=== PATIENT | male | born 1950 | race Caucasian/White ===

== ENCOUNTER 2018-08-26 18:17 | Inpatient (IN) | payer MEDICARE, OTHER ==
[~2018-08-26] VITALS: Ht 182.9 cm; Wt 62.5 kg
[2018-08-26] MEDS ORDERED: PIPER-TAZO 3.375 GM IV (PMX) 100 ML IVPB STA (18:29)
[2018-08-26] MEDS ORDERED: VANCOMYCIN 1 GM (PMX) 250 ML IVPB STA (18:29)
[2018-08-26] MEDS ORDERED: SODIUM CHLORIDE 0.9% 1L BAG IV* STA (18:29)
[2018-08-26] MEDS ORDERED: BUDE6HFA INHALATION (19:00)
[2018-08-26] MEDS ORDERED: IPRA3AMP29 INHALATION (19:01)
[2018-08-26] MEDS ORDERED: QUET50TA PO (19:01)
[2018-08-26] MEDS ORDERED: DIVA125T PO (19:03)
[2018-08-26] MEDS ORDERED: MV,M1TAB6 PO (19:05)
[2018-08-26] MEDS ORDERED: SENN-120 PO (19:05)
[2018-08-26] MEDS ORDERED: PANTOPRAZOLE IV 80 MG in SOD CHLORIDE 0.9% 100 ML IVPB STA (19:07)
[2018-08-26] MEDS ORDERED: ACET325T45 PO (19:07)
[2018-08-26] MEDS ORDERED: POLY17PO6 PO (19:08)
[2018-08-26] MEDS ORDERED: DOCU-144 PO (19:08)
--- NOTE | 2018-08-26 20:04 | ERD ---
ER Documentation Chief Complaint Chief Complaint aloc/ resp distress HPI 68-year-old male brought in from his boarding care and respiratory distress. Reportedly the patient has been more confused than usual for the past 3 hours. Patient was hypoxic upon EMS arrival. Other vitals were stable. ROS Unable to obtain due to altered mental status Medications Home Meds Reported Medications Docusate Sodium* (Colace*) 100 Mg Capsule, 100 MG PO Q24H PRN for CONSTIPATION, #30 CAP 08/26/18 Polyethylene Glycol* (Miralax*) 17 Gm Powd.pack, 17 GM PO DAILY PRN for NEEDED, #30 PACKET 08/26/18 Acetaminophen* (Acetaminophen*) 325 Mg Tablet, 650 MG PO Q4H PRN for PAIN - 05/15, #30 TAB AND FEVER>101F 08/26/18 Sennosides* (Senna Lax*) 8.6 Mg Tablet, 1 TAB PO NEEDED, TAB 08/26/18 Mv,Minerals/Fa/Lycopene/Ginkgo (ONE DAILY MEN'S 50+ TABLET) 1 Each Tablet, 1 EACH PO DAILY, TAB 08/26/18 Divalproex Sodium* (Depakote*) 125 Mg Tablet.dr, 250 MG PO Q8H, #90 TAB 08/26/18 Quetiapine Fumarate* (Seroquel*) 50 Mg Tablet, 50 MG PO Q8H, TAB 08/26/18 Ipratropium-Albuterol (Ipratropium-Albuterol) 0.5-3 Mg/3 Ml Ampul.neb, 3 ML INHALATION Q4H PRN for WHEEZING AND SOB, #30 VIAL 08/26/18 Budesonide-Formoterol Fumarate* (Symbicort*) 160-4.5 Hfa.aer.ad, 2 PUFF INHALATION BID, #1 EACH 08/26/18 Allergies Allergies: Coded Allergies: No Known Allergy (Unverified , 08/26/18) PMhx/Soc Anesthesia Reaction: No Hx Cardiac Disorders: No Hx Psychiatric Problems: Yes (bipolar disorder, depressive disorder, psychosis) Hx Miscellaneous Medical Probl: Yes (hyperlipidemia, BPH, weakness, abnormal posture) Smoking Status: Unknown if ever smoked FmHx Unable to obtain Physical Exam Vitals Vital Signs Date Temp Pulse Resp B/P (MAP) Pulse Ox O2 O2 Flow FiO2 Time Delivery Rate 08/26/18 56 22 117/84 100 Mechanical 22:30 (95) Ventilator 08/26/18 59 26 100 100 22:25 08/26/18 93.2 56 16 106/81 100 Mechanical 21:45 (89) Ventilator 08/26/18 62 16 111/86 100 Mechanical 21:30 (94) Ventilator 08/26/18 66 16 88/76 (80) 97 Mechanical 20:30 Ventilator 08/26/18 45 16 100 100 20:15 08/26/18 74 106/56 100 Mechanical 19:32 (73) Ventilator 08/26/18 101 16 100 100 18:42 08/26/18 Non 15 18:34 Rebreather 08/26/18 94.9 18:30 08/26/18 94.9 92 34 114/79 90 18:30 (91) Physical Exam INITIAL VITAL SIGNS: Reviewed by me GENERAL: Patient is lying on gurney, agonal respirations. Cachectic HEAD: Normocephalic EYES: PERRL. No icterus. No pallor. Lids, lashes, and conjunctiva clear. ENT: dry mucous membranes, airway patent NECK: Supple. No masses. Full range of motion. No meningismus RESPIRATORY: Tachypneic with agonal respirations. No obvious wheezing, rales, or rhonchi. Using accessory muscles. CV: Regular rate and rhythm. No murmurs, No rubs or gallops. ABDOMEN: Soft, non-distended BACK: No wounds noted. Rectal exam without blood. EXTREMITIES: No edema. No clubbing or cyanosis. Pulses symmetric. SKIN: Very cool, dry. Pale. Decreased turgor. No obvious rash, petechiae or purpura. NEUROLOGIC: Obtunded, not arousable, occasionally withdraws to painful stimuli. No verbal response. No eye opening. Result Diagram: 08/26/18182408/26/181824 Results 24 hrs Laboratory Tests Test 08/26/18 18:25 08/26/18 19:13 08/26/18 19:23 08/26/18 20:30 White Blood 20.2 10^3/ul Count Red Blood Count 4.83 10^6/ul Hemoglobin 13.5 g/dl Hematocrit 46.5 % Mean 96.3 fl Corpuscular Volume Mean 28.0 pg Corpuscular Hemoglobin Mean 29.0 g/dl Corpuscular Hemoglobin Conc ent Red Cell 15.2 % Distribution Width Platelet Count 124 10^3/UL Mean Platelet 11.6 fl Volume Immature 2.700 % Granulocytes % Neutrophils % 87.3 % Lymphocytes % 4.8 % Monocytes % 4.8 % Eosinophils % 0.0 % Basophils % 0.4 % Nucleated Red 0.1 /100WBC Blood Cells % Immature 0.540 10^3/ul Granulocytes # Neutrophils # 17.7 10^3/ul Lymphocytes # 1.0 10^3/ul Monocytes # 1.0 10^3/ul Eosinophils # 0.0 10^3/ul Basophils # 0.1 10^3/ul Nucleated Red 0.0 10^3/ul Blood Cells # Prothrombin 12.4 Sec Time Prothrombin 1.0 Time Ratio INR 0.91 International Normalized Rati o Activated 40.8 Sec Partial Thrombo plast Time Sodium Level 136 mmol/L Potassium Level 5.4 mmol/L Chloride Level 94 mmol/L Carbon Dioxide 34 mmol/L Level Anion Gap 8 Blood Urea 38 mg/dl Nitrogen Creatinine 1.68 mg/dl Est Glomerular 41 mL/min Filtrat Rate mL/min Glucose Level 173 mg/dl POC Venous 2.0 mmol/L 2.0 mmol/L Lactate Calcium Level 9.4 mg/dl Total Bilirubin 0.0 mg/dl Direct 0.00 mg/dl Bilirubin Indirect 0.0 mg/dl Bilirubin Aspartate Amino 173 IU/L Transf (AST/SGO T) Alanine 122 IU/L Aminotransferas e (ALT/SGPT) Alkaline 86 IU/L Phosphatase Troponin I 0.248 ng/ml Total Protein 7.8 g/dl Albumin 4.0 g/dl Globulin 3.80 g/dl Albumin/Globuli 1.05 n Ratio Urine Color JIM Urine Clarity CLOUDY Urine pH 5.0 Urine Specific 1.016 [place] Urine Ketones NEGATIVE mg/dL Urine Nitrite NEGATIVE mg/dL Urine Bilirubin NEGATIVE mg/dL Urine 1+ mg/dL Urobilinogen Urine Leukocyte 1+ Mikki/ul Esterase Urine 4 /HPF Microscopic RBC Urine 33 /HPF Microscopic WBC Urine Amorphous MANY /HPF Crystals Urine Bacteria FEW /HPF Urine Hyaline FEW /HPF Casts Urine Mucus FEW /HPF Urine NEGATIVE mg/dL Hemoglobin Urine Glucose NEGATIVE mg/dL Urine Total 2+ mg/dl Protein Blood Gas Blood arterial Specimen Source Arterial Blood 08/26/2018 10:00 Date Drawn :42 PM Arterial Blood 7.203 pH (Temp corrected ) Arterial Blood 74.7 mmhg pCO2 (Temp correct) Arterial Blood 156.9 mmHG pO2 (Temp corrected ) Arterial Blood 28.7 mmol/L HCO3 Arterial Blood -1.1 mmol/L Base Excess Arterial Blood 98.9 mmHG Oxygen Saturati on Miller Test N/A Arterial Blood Right Brachial Gas Puncture Site Arterial 2.3 % Blood Carboxyhe moglobin Arterial Blood 0.1 % Methemoglobin Blood Gas A-a 481.4 mmHg O2 Differential Oxyhemoglobin 96.5 % Percent Blood Gas 37.0 C Temperature Blood Gas 16.0 Respiration Rate Blood Gas 16 Actual Respiration Rat e Blood Gas VENT - AC Modality FiO2 100.0 % Blood Gas Tidal 500.0 mL Volume Blood Gas N TONYA ISAAC Critical Value Read Back Blood Gas UP Notified Whom Blood Gas 08/26/2018 10:14 Notified Time :35 PM Current Medications Medications Dose Sig/Tamie Start Time Status Last (Trade) Ordered Route PRN Stop Time Admin Dose Reason Admin Sodium 2,250 ml BOLUS OVER 2 08/26/18 DC 08/26/18 Chloride HOURS STAT 18:29 18:50 (NS) IV* 08/26/18 18:33 Vancomycin 250 ml @ ONCE STAT 08/26/18 DC 08/26/18 HCl 125 mls/hr IVPB 18:29 19:37 08/26/18 20:28 Piperacillin 100 ml @ ONCE STAT 08/26/18 DC 08/26/18 Sod/ 200 mls/hr IVPB 18:29 18:50 Tazobactam 08/26/18 18:58 Sod Pantoprazole 100 ml @ ONCE STAT 08/26/18 DC 80 mg/Sodium 400 mls/hr IVPB 19:07 Chloride 08/26/18 19:21 Sodium 1,000 ml @ Q10H IV 08/26/18 UNV Chloride 100 mls/hr 23:03 Ondansetron 4 mg Q6H PRN 08/26/18 UNV HCl (Zofran IV NAUSEA 23:30 Inj) AND/OR VOMITING 650 mg Q4H PRN 08/26/18 UNV Acetaminophen WA PAIN 23:30 (Tylenol LEVEL 1-3 OR Supp) FEVER Morphine 2 mg Q4H PRN 08/26/18 UNV Sulfate IV PAIN 23:30 (morphine) LEVEL 7-10 Famotidine 20 mg Q12 IV 08/27/18 UNV (Pepcid Iv) 09:00 Enoxaparin 30 mg DAILY SC 08/27/18 UNV Sodium 09:00 (Lovenox) Piperacillin 100 ml @ Q6 IVPB 08/27/18 UNV Sod/ 200 mls/hr 00:00 Tazobactam Sod Procedures/MDM EMERGENT LABS AND DIAGNOSTIC STUDIES: Lab Results above were reviewed and interpreted by me. CBC: Leukocytosis, consistent with acute infection. Thrombocytopenia, unclear etiology CMP: Evidence of acute renal failure with elevated BUN and creatinine with mild hyperkalemia. ABG shows evidence of respiratory acidosis Troponin elevated, consistent with acute myocardial ischemia Lactate within normal limits without evidence of sepsis or tissue hypoperfusion UA: Possibly consistent with infection 12-lead EKG was interpreted by Bhavya Horvath MD: Sinus tachycardia at 109 bpm Right bundle branch block Septal Q waves No acute ST or T wave changes suggestive of acute ischemia or STEMI. Radiology Results as interpreted by Radiology below were reviewed by Chris Horavth MD: Chest x-ray post-intubation: IMPRESSION: New endotracheal tube in appropriate position. Right lower lobe infiltrate and moderate right pleural effusion. Patchy linear atelectatic changes and increased interstitial changes in the left lung base. .Juve Berumen MD, MD Date Time Electronically viewed and signed by .Juve Berumen MD, MD on 08/26/2018 18:48 KUB: IMPRESSION: New large left-sided pneumothorax. New large amount of free intraperitoneal air. Nasogastric tube extending below the diaphragm, likely within the stomach. Chest Xray post-chest tube: IMPRESSION: Placement of a left-sided chest tube with re-expansion of the left lung. No evidence of pneumothorax. Free intraperitoneal air again noted. Initial Nursing notes reviewed. Previous Medical Records requested via the Electronic Health Record. EMERGENCY DEPARTMENT COURSE / MEDICAL DECISION MAKING: Endotracheal Intubation by me: Pre assessment performed. See preceding note for details. Pre-oxygenation performed with 100% oxygen RSI: Performed w/o complication or hypoxic events. Medications as ordered. Blade: Mac 4 ET Tube: 7.5 cm Depth: 22 cm at the lip Intubation confirmed by colorimetric CO2, equal breath sounds, quiet over the stomach. Central Line Placement by me: Patient consented, sterilely draped, full prep, gown, glove, mask, time out performed. Anesthesia: 1% lidocaine locally Location: Right IJ Device: Multiple lumen Technique: Seldinger technique. Secured with suture. Results: Venous return from all ports with easy saline flush. No complications. Guide wire retrieved and disposed of. Chest X-ray 1V Interpreted by me: Central line in SVC, Normal soft tissue, No evidence of pneumothorax. MDM Patient is presenting with hypothermia and altered mental status with evidence of acute respiratory failure. He was intubated due to his mental status and for airway protection. NG tube was placed with subsequent dark large amount of output. This is concerning for possible GI bleed. Sepsis workup was initiated. Warming measures were also initiated. During his ED course, the patient did suffer from a cardiac arrest and after ACLS was performed, had return of spontaneous circulation. Subsequent to this, his abdomen became distended. KUB was ordered to evaluate for NG tube placement and the pneumothorax was found. Chest tube was placed on the left side with improvement of his distention, however there was evidence of possible intra-abdominal free air. For this reaso n CT abdomen and pelvis was ordered. Patient was started on a Levophed drip. He does have evidence of NSTEMI but no clear evidence of STEMI. Aspirin was not given as the patient has signs of a GI bleed. Patient's infectious symptoms have not stabilized and the patient is at risk of rapid decompensation. The patient will be admitted for careful hydration, antibiotic therapy, and infectious source control. Based on my assessment, this patient's prognosis seems to be very poor. He has not required any sedation after being intubated. I did try to get a hold of the emergency contact but the number in his record is not the correct working number. I am unable to get a hold of any family. Severe Sepsis Assessment: Infectious Source: Pneumonia End organ damage indicated by: Hypotension( SBP < 90 or >40 mmHG drop or MAP < 65) Acute Resp Failure (sat < 92% w/o oxygen) Severe Sepsis Managment: Blood Cultures X 2 before broad spectrum antibiotics initiated within 3 hours of recognition. 30 ml/kg NS bolus Completed Initial Lactate: normal Repeat Lactate normal at 2.0 Critical Care: Time: 70 minutes Treatments/Evaluations: Emergent fluid management, while maintaining close respiratory support. Immediate broad spectrum antibiotic therapy. Simultaneous assessment for possible sources in order to direct therapy. Consideration for invasive and chemical support to prevent respiratory or cardiac collapse. Septic Shock Assessment (1 hour post 30 ml/kg fluid bolus): Hypotension (SBP < 90 or 40 mmHg drop, MAP < 65): yes Lactic acid > 4.0 No Perfusion Reassessment for Septic Shock: Temp 93.2F, Pulse 56, RR 16, BP 106/81 Heart Exam: Bradycardic Lung Exam: No Crackles Capillary Refill: Delayed Peripheral Pulses: Radially present Skin: Mottled, pale Hypotensive Treatment (not required for isolated lactic acid elevation): Comfort Care: No Central LIne: yes Vasopressor started: norepinephrine Accepting Care Team: Current data and ongoing care discussed. Time: Time of admission Primary Provider: Dr. Anahy Paredes Departure Diagnosis: Primary Impression: Septic shock Additional Impressions: Altered level of consciousness Acute respiratory failure Respiratory failure complication: hypoxia and hypercapnia Qualified Codes: J96.01 - Acute respiratory failure with hypoxia; J96.02 - Acute respiratory f ailure with hypercapnia Pneumonia Pneumonia type: due to unspecified organism Laterality: unspecified laterality Lung location: unspecified part of lung Qualified Codes: J18.9 - Pneumonia, unspecified organism Acute renal failure Acute renal failure type: unspecified Qualified Codes: N17.9 - Acute kidney failure, unspecified Hyperkalemia Hypothermia Encounter type: initial encounter Qualified Codes: T68.XXXA - Hypothermia, initial encounter Cardiac arrest with successful resuscitation Pneumothorax on left Condition: Critical RICHARD HORVATH MD Aug 26, 2018 20:04
[2018-08-26] MEDS ORDERED: morphine 2 MG INJ IV PRN (23:30)
[2018-08-26] MEDS ORDERED: ONDANSETRON 4 MG INJ IV PRN (23:30)
[2018-08-26] MEDS ORDERED: ACETAMINOPHEN 650 MG SUPP PR PRN (23:30)
[2018-08-26] MEDS ORDERED: PROPOFOL 100 ML ONE (23:59)
[2018-08-27] VITALS (89 sets, daily range): BP systolic 79–136; BP diastolic 57–96; PULSE 54–87; RESP 13–30; Ht 182.9 cm; Wt 62.5 kg
[2018-08-27] MEDS ORDERED: PROPOFOL 100 ML IV ONE
[2018-08-27] MEDS ORDERED: ETOMIDATE 20 MG INJ ONE
[2018-08-27] MEDS ORDERED: ROCURONIUM 50 MG INJ ONE
[2018-08-27] MEDS: NORepinephrine 8MG/250 ML (PMX 250 ML IV SCH ×2 (00:22→09:48)
[2018-08-27] MEDS ORDERED: IOHEXOL 14.3 MG(I)/ML (ADULT) BTL PO ONE ×2 (00:30→08:30)
[2018-08-27] MEDS ORDERED: SOD CHLORIDE 0.9% 100 ML ONE (00:56)
[2018-08-27] MEDS ORDERED: IOHEXOL 300MG/ML 150 ML BTL ONE (00:56)
--- NOTE | 2018-08-27 01:50 | EN ---
Date/Time of Note Date/Time of Note DATE: 08/27/18 TIME: 01:49 ER Progress Note Discussed CT findings with Dr. Caldwell who is on-call for surgery. Made aware. Patient will be admitted to ICU. WAYNE ASIF Aug 27, 2018 01:50
[2018-08-27] MEDS: DOPamine-D5W 1.6 MG/ML 250 ML IV SCH ×2 (01:58→18:00)
[2018-08-27] MEDS: SOD CHLORIDE 0.9% 1,000 ML IV SCH ×4 (01:59→18:37)
[2018-08-27] MEDS: PIPER-TAZO 3.375 GM IV (PMX) 100 ML IVPB SCH ×5 (06:06→23:51)
[2018-08-27] MEDS: PROPOFOL 100 ML IV SCH ×4 (06:20→22:56)
[2018-08-27] MEDS ORDERED: NA BICARBONATE 8.4% 50 ML SYG ONE (07:00)
[2018-08-27] MEDS ORDERED: AMIODARONE 150 MG INJ ONE (07:00)
[2018-08-27] MEDS ORDERED: EPINEPHrine 0.1 MG/ML SYG ONE (07:00)
[2018-08-27] MEDS ORDERED: CA CHLORIDE 10% 10 ML SYRINGE ONE (07:00)
[2018-08-27] MEDS ORDERED: BARIUM SULF 2% 450 ML BTL (BERRY SMOOTHIE) PO ONE (07:30)
[2018-08-27] MEDS: FAMOTIDINE 20 MG INJ IV SCH ×2 (08:24→21:16)
[2018-08-27] MEDS: ENOXAPARIN 30 MG/0.3 ML SYG SC SCH (09:00)
--- NOTE | 2018-08-27 10:40 | CONS ---
Date/Time of Note Date/Time of Note DATE: 08/27/18 TIME: 10:35 Assessment/Plan Assessment/Plan Assessment/Plan Multiple chest x-rays as well as CT imaging of the abdomen were reviewed. Patient does have pneumoperitoneum. 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 Ventilator setting; AC of 26, tidal volume 500, PEEP of 10, 100% FiO2. Assessment and recommendations; 1. Patient admitted with altered mental status and hypothermia possibly bowel perforation as the patient did have significant coffee-ground material suctioned through a nasogastric tube with pneumoperitoneum seen on CT imaging of the abdomen. 2. Significant leukocytosis. Patient currently on appropriate antimicrobial regimen. 3. Status post placement of left-sided chest tube . 4. Severe bullous emphysema. 5. Persistent shock. Status post adequate fluid resuscitation. 6. Bibasilar infiltrates seen on CT imaging of the abdomen. Possibly aspiration pneumonia. 7. Severe hypoxemia. Continue current supportive care. Patient likely will need abdominal exploration. Meanwhile obtain a stat ABG. Continue current antibiotics and pr essor support. Obtain daily chest x-ray. Further recommendations once ABG is performed. 40 minutes of critical care time was spent evaluating the patient. Result Diagram: 08/27/18 0218 08/27/18 0218 Results 24hrs Laboratory Tests Test 08/26/18 18:25 08/26/18 19:13 08/26/18 19:23 08/26/18 20:30 White Blood 20.2 H Count Red Blood Count 4.83 Hemoglobin 13.5 L Hematocrit 46.5 Mean Corpuscular 96.3 Volume Mean Corpuscular 28.0 L Hemoglobin Mean Corpuscular 29.0 L Hemoglobin Alisson nt Red Cell 15.2 H Distribution Width Platelet Count 124 L Mean Platelet 11.6 H Volume Immature 2.700 H Granulocytes % Neutrophils % 87.3 H Lymphocytes % 4.8 L Monocytes % 4.8 Eosinophils % 0.0 Basophils % 0.4 Nucleated Red 0.1 H Blood Cells % Immature 0.540 H Granulocytes # Neutrophils # 17.7 H Lymphocytes # 1.0 Monocytes # 1.0 H Eosinophils # 0.0 Basophils # 0.1 Nucleated Red 0.0 Blood Cells # Prothrombin Time 12.4 Prothrombin Time 1.0 Ratio INR 0.91 International Normalized Ratio Activated 40.8 H Partial Thrombop last Time Sodium Level 136 Potassium Level 5.4 H Chloride Level 94 L Carbon Dioxide 34 H Level Anion Gap 8 Blood Urea 38 H Nitrogen Creatinine 1.68 H Est Glomerular 41 L Filtrat Rate mL/min Glucose Level 173 POC Venous 2.0 2.0 Lactate Calcium Level 9.4 Total Bilirubin 0.0 L Direct Bilirubin 0.00 Indirect 0.0 Bilirubin Aspartate Amino 173 H Transf (AST/SGOT ) Alanine 122 H Aminotransferase (ALT/SGPT) Alkaline 86 Phosphatase Troponin I 0.248 *H Total Protein 7.8 Albumin 4.0 Globulin 3.80 H Albumin/Globulin 1.05 Ratio Urine Color JIM Urine Clarity CLOUDY A Urine pH 5.0 Urine Specific 1.016 [place] Urine Ketones NEGATIVE Urine Nitrite NEGATIVE Urine Bilirubin NEGATIVE Urine 1+ H Urobilinogen Urine Leukocyte 1+ H Esterase Urine 4 Microscopic RBC Urine 33 H Microscopic WBC Urine Amorphous MANY A Crystals Urine Bacteria FEW A Urine Hyaline FEW A Casts Urine Mucus FEW A Urine Hemoglobin NEGATIVE Urine Glucose NEGATIVE Urine Total 2+ H Protein Blood Gas Blood arterial Specimen Source Arterial Blood 08/26/2018 10:00 Date Drawn :42 PM Arterial Blood 7.203 *L pH (Temp corrected) Arterial Blood 74.7 H pCO2 (Temp correct) Arterial Blood 156.9 H pO2 (Temp corrected) Arterial Blood 28.7 H HCO3 Arterial Blood -1.1 Base Excess Arterial Blood 98.9 H Oxygen Saturatio n Miller Test N/A Arterial Blood Right Brachial Gas Puncture Site Arterial 2.3 Blood Carboxyhem oglobin Arterial Blood 0.1 Methemoglobin Blood Gas A-a O2 481.4 H Differential Oxyhemoglobin 96.5 Percent Blood Gas 37.0 Temperature Blood Gas 16.0 Respiration Rate Blood Gas Actual 16 Respiration Rate Blood Gas VENT - AC Modality FiO2 100.0 Blood Gas Tidal 500.0 Volume Blood Gas N TONYA ISAAC Critical Value Read Back Blood Gas UP Notified Whom Blood Gas 08/26/2018 10:14 Notified Time :35 PM Test 08/27/18 00:50 08/27/18 02:18 Blood Gas Blood arterial Specimen Source Arterial Blood 08/27/2018 1:15: Date Drawn 59 AM Arterial Blood 7.362 pH (Temp corrected) Arterial Blood 47.1 H pCO2 (Temp correct) Arterial Blood 41.9 *L pO2 (Temp corrected) Arterial Blood 26.1 H HCO3 Arterial Blood 0.2 Base Excess Arterial Blood 77.2 L Oxygen Saturatio n Miller Test ACCEPTAB Arterial Blood Right Radial Gas Puncture Site Arterial 1.6 Blood Carboxyhem oglobin Arterial Blood 0 Methemoglobin Blood Gas A-a O2 624.0 H Differential Oxyhemoglobin 76.0 L Percent Blood Gas 37.0 Temperature Blood Gas 26.0 Respiration Rate Blood Gas Actual 26 Respiration Rate Blood Gas VENT - AC Modality FiO2 100.0 Blood Gas Tidal 500.0 Volume Blood Gas Low 5.0 PEEP Setting Blood Gas D YEFRI ISAAC Critical Value Read Back Blood Gas UP Notified Whom Blood Gas 08/27/2018 1:30: Notified Time 16 AM White Blood 21.3 H Count Red Blood Count 4.33 L Hemoglobin 12.1 L Hematocrit 40.0 L Mean Corpuscular 92.4 Volume Mean Corpuscular 27.9 L Hemoglobin Mean Corpuscular 30.3 L Hemoglobin Alsison nt Red Cell 15.4 H Distribution Width Platelet Count 138 L Mean Platelet 11.0 H Volume Immature 1.000 H Granulocytes % Neutrophils % 81.6 H Lymphocytes % 8.8 L Monocytes % 8.5 Eosinophils % 0.0 Basophils % 0.1 Nucleated Red 0.4 H Blood Cells % Immature 0.220 H Granulocytes # Neutrophils # 17.3 H Lymphocytes # 1.9 Monocytes # 1.8 H Eosinophils # 0.0 Basophils # 0.0 Nucleated Red 0.1 H Blood Cells # Sodium Level 139 Potassium Level 4.7 Chloride Level 103 Carbon Dioxide 30 Level Anion Gap 6 Blood Urea 41 H Nitrogen Creatinine 1.47 H Est Glomerular 48 L Filtrat Rate mL/min Glucose Level 138 Hemoglobin A1c 5.6 Lactic Acid 2.6 *H Level Calcium Level 9.2 Consultation Date/Type/Reason Admit Date/Time Aug 27, 2018 at 00:03 Date of Consultation: Aug 27, 2018 Type of Consult Pulmonary/critical care Patient is a 68-year-old male who is a retirement resident was sent over to the hospital because of hypothermia and altered mental status. In the emergency room, patient developed cardiac arrest requiring CPR and intubation. In the course of workup the patient also required a chest tube placement on the left side. CT imaging of the abdomen showed pneumoperitoneum with possibly perforated viscus. By the time I saw the patient in ICU, patient is orally intubated and sedated. History was obtained from medical records. Past medical history; essentially unremarkable except for possibly COPD. Medications; reviewed. Patient is currently on dopamine at 6 mics per kilogram per minute, Levophed 20 mics per minute, propofol 25 mics per kilogram per minute. Other medications were also reviewed. Allergies; none. Social history; not available. Family history and occupational history is also not available. Review of system; unable to be obtained. General exam; elderly male, orally intubated, sedated, currently in no distress. Past Medical History Medications Current Medications Sodium Chloride 1,000 ml @ 100 mls/hr Q10H IV Last administered on 08/27/18at 06:08; Admin Dose 100 MLS/HR; Start 08/26/18 at 23:03 Ondansetron HCl (Zofran Inj) 4 mg Q6H PRN IV NAUSEA AND/OR VOMITING; Start 08/26/18 at 23:30 Acetaminophen (Tylenol Supp) 650 mg Q4H PRN SC PAIN LEVEL 1-3 OR FEVER; Start 08/26/18 at 23:30 Morphine Sulfate (morphine) 2 mg Q4H PRN IV PAIN LEVEL 7-10; Start 08/26/18 at 23:30 Famotidine (Pepcid Iv) 20 mg Q12 IV Last administered on 08/27/18at 08:24; Admin Dose 20 MG; Start 08/27/18 at 09:00 Enoxaparin Sodium (Lovenox) 30 mg DAILY SC ; Start 08/27/18 at 09:00 Piperacillin Sod/ Tazobactam Sod 100 ml @ 200 mls/hr Q6 IVPB Last administered on 08/27/18at 06:06; Admin Dose 200 MLS/HR; Start 08/27/18 at 00:00 Norepinephrine 250 ml @ 1.875 mls/ hr TITRATE IV Last administered on 08/27/18a t 09:48; Admin Dose 37.5 MLS/HR; Start 08/27/18 at 00:30 Dopamine HCl/ Dextrose 250 ml @ 5.625 mls/ hr TITRATE IV Last administered on 08/27/18at 01:58; Admin Dose 5.625 MLS/HR; Start 08/27/18 at 02:00 Influenza Virus Vaccine Quadrival (Fluzone) 0.5 ml ONCE ONCE IM* ; Start 08/28/18 at 10:00; Stop 08/28/18 at 10:01 Propofol 100 ml @ 1.875 mls/ hr Q12H IV Last administered on 08/27/18at 06:20; Admin Dose 9.375 MLS/HR; Start 08/27/18 at 06:30 Allergies: Coded Allergies: No Known Allergy (Unverified , 08/26/18) Social History Smoking Status: Unknown if ever smoked Exam/Review of Systems Vital Signs Vitals Vital Signs Date Temp Pulse Resp B/P (MAP) Pulse Ox O2 O2 Flow FiO2 Time Delivery Rate 08/27/18 57 26 136/87 100 Mechanical 10:15 (103) Ventilator 08/27/18 97.6 08:00 08/27/18 100 08:00 08/26/18 15 18:34 Intake and Output 08/26/18 08/26/18 08/27/18 1515:00 23:00 07:00 IntakeIntake Total 745.625 ml OutputOutput Total 375 ml BalanceBalance 370.625 ml Exam H EENT exam; supple neck, no JVD. No lymphadenopathy. Midline trachea. No thyromegaly. Patient is edentulous. Orally intubated. Pupils are midsize. No neck masses. Chest exam; diminished breath sounds bilaterally. S1-S2 audible, no murmurs. Regular rhythm. Left-sided chest tube in place. Abdomen exam; soft, no organomegaly. Bowel sounds are sluggish. Extremity exam; no peripheral edema. DIRECTOR OPERATING exam; patient is sedated. Medications Medications Current Medications Sodium Chloride 1,000 ml @ 100 mls/hr Q10H IV Last administered on 08/27/18at 06:08; Admin Dose 100 MLS/HR; Start 08/26/18 at 23:03 Ondansetron HCl (Zofran Inj) 4 mg Q6H PRN IV NAUSEA AND/OR VOMITING; Start 08/26/18 at 23:30 Acetaminophen (Tylenol Supp) 650 mg Q4H PRN SC PAIN LEVEL 1-3 OR FEVER; Start 08/26/18 at 23:30 Morphine Sulfate (morphine) 2 mg Q4H PRN IV PAIN LEVEL 7-10; Start 08/26/18 at 23:30 Famotidine (Pepcid Iv) 20 mg Q12 IV Last administered on 08/27/18at 08:24; Admin Dose 20 MG; Start 08/27/18 at 09:00 Enoxaparin Sodium (Lovenox) 30 mg DAILY SC ; Start 08/27/18 at 09:00 Piperacillin Sod/ Tazobactam Sod 100 ml @ 200 mls/hr Q6 IVPB Last administered on 08/27/18at 06:06; Admin Dose 200 MLS/HR; Start 08/27/18 at 00:00 Norepinephrine 250 ml @ 1.875 mls/ hr TITRATE IV Last administered on 08/27/18at 09:48; Admin Dose 37.5 MLS/HR; Start 08/27/18 at 00:30 Dopamine HCl/ Dextrose 250 ml @ 5.625 mls/ hr TITRATE IV Last administered on 08/27/18at 01:58; Admin Dose 5.625 MLS/HR; Start 08/27/18 at 02:00 Influenza Virus Vaccine Quadrival (Fluzone) 0.5 ml ONCE ONCE IM* ; Start 08/28/18 at 10:00; Stop 08/28/18 at 10:01 Propofol 100 ml @ 1.875 mls/ hr Q12H IV Last administered on 08/27/18at 06:20; Admin Dose 9.375 MLS/HR; Start 08/27/18 at 06:30 GAMALIEL BASILIO Aug 27, 2018 10:40
--- NOTE | 2018-08-27 13:03 | HP ---
Date/Time of Note Date/Time of Note DATE: 08/27/18 TIME: 12:43 Assessment/Plan VTE Prophylaxis Risk score (from [place])>0 risk: 9 SCD applied (from [place]): Yes Pharmacological prophylaxis: LMWH Lines/Catheters IV [facility] (from [facility] Central Line Central line still needed: Yes Urinary Cath still in place: Yes Reason Cath still needed: urinary retention Assessment/Plan Assessment/Plan -Sepsis with shock, continue broad-spectrum antibiotics, IV fluids, pressors, ICU care. Dr. Sutton is asked to see patient in infection disease consultation. -Status post cardiac arrest, patient is currently on dopamine drip, will obtain 2D echo. Dr. Lamar is asked to see patient in cardiology consultation. -Left-sided pneumothorax, status post left side chest tube placement. -Acute respiratory failure, continue ventilatory support bronchodilators. Dr. Molina is following in pulmonology consultation. -Pneumoperitoneum per CT of the abdomen, possible perforated viscus. Dr. Rivas is following in general surgery consultation. -Left lower lobe pneumonia -Severe emphysema Further recommendations based on clinical course. Plan of care discussed with Dr. Juarez. Result Diagram: 08/27/188 08/27/188 Results 24hrs Laboratory Tests Test 08/26/18 18:25 08/26/18 19:13 08/26/18 19:23 08/26/18 20:30 White Blood 20.2 H Count Red Blood Count 4.83 Hemoglobin 13.5 L Hematocrit 46.5 Mean 96.3 Corpuscular Volume Mean 28.0 L Corpuscular Hemoglobin Mean 29.0 L Corpuscular Hemoglobin Conc ent Red Cell 15.2 H Distribution Width Platelet Count 124 L Mean Platelet 11.6 H Volume Immature 2.700 H Granulocytes % Neutrophils % 87.3 H Lymphocytes % 4.8 L Monocytes % 4.8 Eosinophils % 0.0 Basophils % 0.4 Nucleated Red 0.1 H Blood Cells % Immature 0.540 H Granulocytes # Neutrophils # 17.7 H Lymphocytes # 1.0 Monocytes # 1.0 H Eosinophils # 0.0 Basophils # 0.1 Nucleated Red 0.0 Blood Cells # Prothrombin 12.4 Time Prothrombin 1.0 Time Ratio INR 0.91 International Normalized Rati o Activated 40.8 H Partial Thrombo plast Time Sodium Level 136 Potassium Level 5.4 H Chloride Level 94 L Carbon Dioxide 34 H Level Anion Gap 8 Blood Urea 38 H Nitrogen Creatinine 1.68 H Est Glomerular 41 L Filtrat Rate mL/min Glucose Level 173 POC Venous 2.0 2.0 Lactate Calcium Level 9.4 Total Bilirubin 0.0 L Direct 0.00 Bilirubin Indirect 0.0 Bilirubin Aspartate Amino 173 H Transf (AST/SGO T) Alanine 122 H Aminotransferas e (ALT/SGPT) Alkaline 86 Phosphatase Troponin I 0.248 *H Total Protein 7.8 Albumin 4.0 Globulin 3.80 H Albumin/Globuli 1.05 n Ratio Urine Color JIM Urine Clarity CLOUDY A Urine pH 5.0 Urine Specific 1.016 [place] Urine Ketones NEGATIVE Urine Nitrite NEGATIVE Urine Bilirubin NEGATIVE Urine 1+ H Urobilinogen Urine Leukocyte 1+ H Esterase Urine 4 Microscopic RBC Urine 33 H Microscopic WBC Urine Amorphous MANY A Crystals Urine Bacteria FEW A Urine Hyaline FEW A Casts Urine Mucus FEW A Urine NEGATIVE Hemoglobin Urine Glucose NEGATIVE Urine Total 2+ H Protein Blood Gas Blood Specimen arterial Source Arterial Blood 08/26/2018 10:0 Date Drawn 0:42 PM Arterial Blood 7.203 *L pH (Temp corrected ) Arterial Blood 74.7 H pCO2 (Temp correct) Arterial Blood 156.9 H pO2 (Temp corrected ) Arterial Blood 28.7 H HCO3 Arterial Blood -1.1 Base Excess Arterial Blood 98.9 H Oxygen Saturati on Miller Test N/A Arterial Blood Right Gas Brachial Puncture Site Arterial 2.3 Blood Carboxyhe moglobin Arterial Blood 0.1 Methemoglobin Blood Gas A-a 481.4 H O2 Differential Oxyhemoglobin 96.5 Percent Blood Gas 37.0 Temperature Blood Gas 16.0 Respiration Rate Blood Gas 16 Actual Respiration Rat e Blood Gas VENT - AC Modality FiO2 100.0 Blood Gas Tidal 500.0 Volume Blood Gas N [id number] Critical Value Read Back Blood Gas UP Notified Whom Blood Gas 08/26/2018 10:1 Notified Time 4:35 PM Test 08/27/18 00:50 08/27/18 02:18 08/27/18 10:31 Blood Gas Blood arterial Blood arterial Specimen Source Arterial Blood 08/27/2018 1:15: 08/27/2018 10:54 Date Drawn 59 AM :53 AM Arterial Blood 7.362 7.392 pH (Temp corrected ) Arterial Blood 47.1 H 44.3 pCO2 (Temp correct) Arterial Blood 41.9 *L 264.4 H pO2 (Temp corrected ) Arterial Blood 26.1 H 26.3 H HCO3 Arterial Blood 0.2 1.1 Base Excess Arterial Blood 77.2 L 99.7 H Oxygen Saturati on Miller Test ACCEPTAB ACCEPTAB Arterial Blood Right Radial Right Radial Gas Puncture Site Arterial 1.6 0.8 Blood Carboxyhe moglobin Arterial Blood 0 0.3 Methemoglobin Blood Gas A-a 624.0 H 404.3 H O2 Differential Oxyhemoglobin 76.0 L 98.6 Percent Blood Gas 37.0 37.0 Temperature Blood Gas 26.0 26.0 Respiration Rate Blood Gas 26 26 Actual Respiration Rat e Blood Gas VENT - AC VENT - AC Modality FiO2 100.0 100.0 Blood Gas Tidal 500.0 500.0 Volume Blood Gas Low 5.0 5.0 PEEP Setting Blood Gas D YEFRI ISAAC Critical Value Read Back Blood Gas UP TM Notified Whom Blood Gas 08/27/2018 1:30: 08/27/2018 11:12 Notified Time 16 AM :36 AM White Blood 21.3 H Count Red Blood Count 4.33 L Hemoglobin 12.1 L Hematocrit 40.0 L Mean 92.4 Corpuscular Volume Mean 27.9 L Corpuscular Hemoglobin Mean 30.3 L Corpuscular Hemoglobin Conc ent Red Cell 15.4 H Distribution Width Platelet Count 138 L Mean Platelet 11.0 H Volume Immature 1.000 H Granulocytes % Neutrophils % 81.6 H Lymphocytes % 8.8 L Monocytes % 8.5 Eosinophils % 0.0 Basophils % 0.1 Nucleated Red 0.4 H Blood Cells % Immature 0.220 H Granulocytes # Neutrophils # 17.3 H Lymphocytes # 1.9 Monocytes # 1.8 H Eosinophils # 0.0 Basophils # 0.0 Nucleated Red 0.1 H Blood Cells # Sodium Level 139 Potassium Level 4.7 Chloride Level 103 Carbon Dioxide 30 Level Anion Gap 6 Blood Urea 41 H Nitrogen Creatinine 1.47 H Est Glomerular 48 L Filtrat Rate mL/min Glucose Level 138 Hemoglobin A1c 5.6 Lactic Acid 2.6 *H Level Calcium Level 9.2 HPI/ROS Admit Date/Time Admit Date/Time Aug 27, 2018 at 00:03 Hx of Present Illness The patient is a 68-year-old male who was recently discharged home from [facility] where he was treated for COPD bipolar disorder BPH depression seizure disorder and hyperlipidemia. Patient was brought from [facility] for altered dimensions status and hypoxia. In the emergency room patient developed cardiac arrest requiring CPR and intubation. Patient also had a chest tube placed on the left side. Patient underwent CT imaging of the abdomen and pelvis which revealed pneumoperitoneum with possibly perforated viscus. Dr. Rivas was consulted in general surgery consultation. Patient is currently in intensive care unit, sedated on propofol drip, patient is also on Levophed and dopamine for hemodynamic support. Patient is able to follow simple commands when propofol is held per RN,however, patient cannot provide any history and most of the history was obtained from medical records and talking to nursing staff. ROS Unable to obtain due to patient condition PMH/Family/Social Past Medical History Unable to obtain due to patient's condition per [facility] facility records patient was treated for COPD BPH major depressive disorder bipolar disorder hyperlipidemia seizure disorder Medications Current Medications Sodium Chloride 1,000 ml @ 100 mls/hr Q10H IV Last administered on 08/27/18at 06:08; Admin Dose 100 MLS/HR; Start 08/26/18 at 23:03 Ondansetron HCl (Zofran Inj) 4 mg Q6H PRN IV NAUSEA AND/OR VOMITING; Start 08/26/18 at 23:30 Acetaminophen (Tylenol Supp) 650 mg Q4H PRN ID PAIN LEVEL 1-3 OR FEVER; Start 08/26/18 at 23:30 Morphine Sulfate (morphine) 2 mg Q4H PRN IV PAIN LEVEL 7-10; Start 08/26/18 at 23:30 Famotidine (Pepcid Iv) 20 mg Q12 IV Last administered on 08/27/18at 08:24; Admin Dose 20 MG; Start 08/27/18 at 09:00 Enoxaparin Sodium (Lovenox) 30 mg DAILY SC ; Start 08/27/18 at 09:00 Piperacillin Sod/ Tazobactam Sod 100 ml @ 200 mls/hr Q6 IVPB Last administered on 08/27/18at 11:31; Admin Dose 200 MLS/HR; Start 08/27/18 at 00:00 Norepinephrine 250 ml @ 1.875 mls/ hr TITRATE IV Last administered on 08/27/18at 09:48; Admin Dose 37.5 MLS/HR; Start 08/27/18 at 00:30 Dopamine HCl/ Dextrose 250 ml @ 5.625 mls/ hr TITRATE IV Last administered on 08/27/18at 01:58; Admin Dose 5.625 MLS/HR; Start 08/27/18 at 02:00 Influenza Virus Vaccine Quadrival (Fluzone) 0.5 ml ONCE ONCE IM* ; Start 08/28/18 at 10:00; Stop 08/28/18 at 10:01 Propofol 100 ml @ 1.875 mls/ hr Q12H IV Last administered on 08/27/18at 06:20; Admin Dose 9.375 MLS/HR; Start 08/27/18 at 06:30 Coded Allergies: No Known Allergy (Unverified , 08/26/18) Past Surgical History Unable to obtain due to patient's condition Social History Unable to obtain due to patient's condition Smoking Status: Unknown if ever smoked Exam/Review of Systems Vital Signs Vitals Vital Signs Date Temp Pulse Resp B/P (MAP) Pulse Ox O2 O2 Flow FiO2 Time Delivery Rate 08/27/18 71 26 115/77 99 Mechanical 12:00 (90) Ventilator 08/27/18 60 12:00 08/27/18 97.6 08:00 08/26/18 15 18:34 Intake and Output 08/26/18 08/26/18 08/27/18 1515:00 23:00 07:00 IntakeIntake Total 745.625 ml OutputOutput Total 435 ml BalanceBalance 310.625 ml Exam Constitutional: frail, other (Sedated on propofol) Head: normocephalic Eyes: other (Right eye blind, left eye PERRLA) Neck: supple Respiratory: diminished breath sounds, other (Left chest tube) Cardiovascular: regular rate and rhythm Gastrointestinal: soft, other (Absent bowel sounds to) Genitourinary - Male: other (Sellers catheter) Musculoskeletal: nl extremities to inspection Extremities: normal pulses Neurological: other (sedated) Skin: nl HERMES Olson Aug 27, 2018 12:54
[2018-08-27] MEDS ORDERED: VANCOMYCIN IV PER PHARMACY XX SCH (14:00)
--- NOTE | 2018-08-27 14:01 | CONS ---
Assessment/Plan Assessment/Plan Assessment/Plan S/p cardiac arrest - etiology unclear - con'r r/o NC, echo - wean off dopa gtt [facility] # [id number] Result Diagram: 08/27/18 0218 08/27/18 0218 Results 24hrs Laboratory Tests Test 08/26/18 18:25 08/26/18 19:13 08/26/18 19:23 08/26/18 20:30 White Blood 20.2 H Count Red Blood Count 4.83 Hemoglobin 13.5 L Hematocrit 46.5 Mean 96.3 Corpuscular Volume Mean 28.0 L Corpuscular Hemoglobin Mean 29.0 L Corpuscular Hemoglobin Conc ent Red Cell 15.2 H Distribution Width Platelet Count 124 L Mean Platelet 11.6 H Volume Immature 2.700 H Granulocytes % Neutrophils % 87.3 H Lymphocytes % 4.8 L Monocytes % 4.8 Eosinophils % 0.0 Basophils % 0.4 Nucleated Red 0.1 H Blood Cells % Immature 0.540 H Granulocytes # Neutrophils # 17.7 H Lymphocytes # 1.0 Monocytes # 1.0 H Eosinophils # 0.0 Basophils # 0.1 Nucleated Red 0.0 Blood Cells # Prothrombin 12.4 Time Prothrombin 1.0 Time Ratio INR 0.91 International Normalized Rati o Activated 40.8 H Partial Thrombo plast Time Sodium Level 136 Potassium Level 5.4 H Chloride Level 94 L Carbon Dioxide 34 H Level Anion Gap 8 Blood Urea 38 H Nitrogen Creatinine 1.68 H Est Glomerular 41 L Filtrat Rate mL/min Glucose Level 173 POC Venous 2.0 2.0 Lactate Calcium Level 9.4 Total Bilirubin 0.0 L Direct 0.00 Bilirubin Indirect 0.0 Bilirubin Aspartate Amino 173 H Transf (AST/SGO T) Alanine 122 H Aminotransferas e (ALT/SGPT) Alkaline 86 Phosphatase Troponin I 0.248 *H Total Protein 7.8 Albumin 4.0 Globulin 3.80 H Albumin/Globuli 1.05 n Ratio Urine Color JIM Urine Clarity CLOUDY A Urine pH 5.0 Urine Specific 1.016 [place] Urine Ketones NEGATIVE Urine Nitrite NEGATIVE Urine Bilirubin NEGATIVE Urine 1+ H Urobilinogen Urine Leukocyte 1+ H Esterase Urine 4 Microscopic RBC Urine 33 H Microscopic WBC Urine Amorphous MANY A Crystals Urine Bacteria FEW A Urine Hyaline FEW A Casts Urine Mucus FEW A Urine NEGATIVE Hemoglobin Urine Glucose NEGATIVE Urine Total 2+ H Protein Blood Gas Blood Specimen arterial Source Arterial Blood 08/26/2018 10:0 Date Drawn 0:42 PM Arterial Blood 7.203 *L pH (Temp corrected ) Arterial Blood 74.7 H pCO2 (Temp correct) Arterial Blood 156.9 H pO2 (Temp corrected ) Arterial Blood 28.7 H HCO3 Arterial Blood -1.1 Base Excess Arterial Blood 98.9 H Oxygen Saturati on Miller Test N/A Arterial Blood Right Gas Brachial Puncture Site Arterial 2.3 Blood Carboxyhe moglobin Arterial Blood 0.1 Methemoglobin Blood Gas A-a 481.4 H O2 Differential Oxyhemoglobin 96.5 Percent Blood Gas 37.0 Temperature Blood Gas 16.0 Respiration Rate Blood Gas 16 Actual Respiration Rat e Blood Gas VENT - AC Modality FiO2 100.0 Blood Gas Tidal 500.0 Volume Blood Gas N TONYA Critical Value Read Back Blood Gas UP Notified Whom Blood Gas 08/26/2018 10:1 Notified Time 4:35 PM Test 08/27/18 00:50 08/27/18 02:18 08/27/18 10:31 Blood Gas Blood arterial Blood arterial Specimen Source Arterial Blood 08/27/2018 1:15: 08/27/2018 10:54 Date Drawn 59 AM :53 AM Arterial Blood 7.362 7.392 pH (Temp corrected ) Arterial Blood 47.1 H 44.3 pCO2 (Temp correct) Arterial Blood 41.9 *L 264.4 H pO2 (Temp corrected ) Arterial Blood 26.1 H 26.3 H HCO3 Arterial Blood 0.2 1.1 Base Excess Arterial Blood 77.2 L 99.7 H Oxygen Saturati on Miller Test ACCEPTAB ACCEPTAB Arterial Blood Right Radial Right Radial Gas Puncture Site Arterial 1.6 0.8 Blood Carboxyhe moglobin Arterial Blood 0 0.3 Methemoglobin Blood Gas A-a 624.0 H 404.3 H O2 Differential Oxyhemoglobin 76.0 L 98.6 Percent Blood Gas 37.0 37.0 Temperature Blood Gas 26.0 26.0 Respiration Rate Blood Gas 26 26 Actual Respiration Rat e Blood Gas VENT - AC VENT - AC Modality FiO2 100.0 100.0 Blood Gas Tidal 500.0 500.0 Volume Blood Gas Low 5.0 5.0 PEEP Setting Blood Gas D YEFRI ISAAC Critical Value Read Back Blood Gas UP TM Notified Whom Blood Gas 08/27/2018 1:30: 08/27/2018 11:12 Notified Time 16 AM :36 AM White Blood 21.3 H Count Red Blood Count 4.33 L Hemoglobin 12.1 L Hematocrit 40.0 L Mean 92.4 Corpuscular Volume Mean 27.9 L Corpuscular Hemoglobin Mean 30.3 L Corpuscular Hemoglobin Conc ent Red Cell 15.4 H Distribution Width Platelet Count 138 L Mean Platelet 11.0 H Volume Immature 1.000 H Granulocytes % Neutrophils % 81.6 H Lymphocytes % 8.8 L Monocytes % 8.5 Eosinophils % 0.0 Basophils % 0.1 Nucleated Red 0.4 H Blood Cells % Immature 0.220 H Granulocytes # Neutrophils # 17.3 H Lymphocytes # 1.9 Monocytes # 1.8 H Eosinophils # 0.0 Basophils # 0.0 Nucleated Red 0.1 H Blood Cells # Sodium Level 139 Potassium Level 4.7 Chloride Level 103 Carbon Dioxide 30 Level Anion Gap 6 Blood Urea 41 H Nitrogen Creatinine 1.47 H Est Glomerular 48 L Filtrat Rate mL/min Glucose Level 138 Hemoglobin A1c 5.6 Lactic Acid 2.6 *H Level Calcium Level 9.2 Consultation Date/Type/Reason Admit Date/Time Aug 27, 2018 at 00:03 Initial Consult Date 08/27/18 Exam/Review of Systems Vital Signs Vitals Vital Signs Date Temp Pulse Resp B/P (MAP) Pulse Ox O2 O2 Flow FiO2 Time Delivery Rate 08/27/18 82 26 109/83 98 Mechanical 13:00 (92) Ventilator 08/27/18 100 12:55 08/27/18 97.6 08:00 08/26/18 15 18:34 Intake and Output 08/26/18 08/26/18 08/27/18 1515:00 23:00 07:00 IntakeIntake Total 745.625 ml OutputOutput Total 435 ml BalanceBalance 310.625 ml Medications Medications Current Medications Sodium Chloride 1,000 ml @ 100 mls/hr Q10H IV Last administered on 08/27/18at 06:08; Admin Dose 100 MLS/HR; Start 08/26/18 at 23:03 Ondansetron HCl (Zofran Inj) 4 mg Q6H PRN IV NAUSEA AND/OR VOMITING; Start 08/26/18 at 23:30 Acetaminophen (Tylenol Supp) 650 mg Q4H PRN [place] PAIN LEVEL 1-3 OR FEVER; Start 08/26/18 at 23:30 Morphine Sulfate (morphine) 2 mg Q4H PRN IV PAIN LEVEL 7-10; Start 08/26/18 at 23:30 Famotidine (Pepcid Iv) 20 mg Q12 IV Last administered on 08/27/18at 08:24; Admin Dose 20 MG; Start 08/27/18 at 09:00 Enoxaparin Sodium (Lovenox) 30 mg DAILY SC ; Start 08/27/18 at 09:00 Piperacillin Sod/ Tazobactam Sod 100 ml @ 200 mls/hr Q6 IVPB Last administered on 08/27/18at 11:31; Admin Dose 200 MLS/HR; Start 08/27/18 at 00:00 Norepinephrine 250 ml @ 1.875 mls/ hr TITRATE IV Last administered on 08/27/18at 09:48; Admin Dose 37.5 MLS/HR; Start 08/27/18 at 00:30 Dopamine HCl/ Dextrose 250 ml @ 5.625 mls/ hr TITRATE IV Last administered on 08/27/18at 01:58; Admin Dose 5.625 MLS/HR; Start 08/27/18 at 02:00 Influenza Virus Vaccine Quadrival (Fluzone) 0.5 ml ONCE ONCE IM* ; Start 08/28/18 at 10:00; Stop 08/28/18 at 10:01 Propofol 100 ml @ 1.875 mls/ hr Q12H IV Last administered on 08/27/18at 06:20; Admin Dose 9.375 MLS/HR; Start 08/27/18 at 06:30 Vancomycin HCl (Vanco Iv Per Pharmacy) VANCOMYCIN PER PHARMACY PER PROTOCOL XX ; Start 08/27/18 at 14:00; Status UNV Date/Time of Note Date/Time of Note DATE: 08/27/18 TIME: 14:00 JIE ALEJO MD Aug 27, 2018 14:01
--- NOTE | 2018-08-27 14:18 | CONS ---
Date/Time of Note Date/Time of Note DATE: 08/27/18 TIME: 14:14 Assessment/Plan Assessment/Plan Assessment/Plan Pneumoperitoneum of uncertain etiology Based on the history and clinical exam, I do not feel that this patient has a perforated viscus. Pneumoperitoneum likely from trauma of chest compressions versus ruptured bleb Will follow with close follow-up and repeat imaging in the morning. Continue current care Result Diagram: 08/27/18 0218 08/27/18 0218 Results 24hrs Laboratory Tests Test 08/26/18 18:25 08/26/18 19:13 08/26/18 19:23 08/26/18 20:30 White Blood 20.2 H Count Red Blood Count 4.83 Hemoglobin 13.5 L Hematocrit 46.5 Mean 96.3 Corpuscular Volume Mean 28.0 L Corpuscular Hemoglobin Mean 29.0 L Corpuscular Hemoglobin Conc ent Red Cell 15.2 H Distribution Width Platelet Count 124 L Mean Platelet 11.6 H Volume Immature 2.700 H Granulocytes % Neutrophils % 87.3 H Lymphocytes % 4.8 L Monocytes % 4.8 Eosinophils % 0.0 Basophils % 0.4 Nucleated Red 0.1 H Blood Cells % Immature 0.540 H Granulocytes # Neutrophils # 17.7 H Lymphocytes # 1.0 Monocytes # 1.0 H Eosinophils # 0.0 Basophils # 0.1 Nucleated Red 0.0 Blood Cells # Prothrombin 12.4 Time Prothrombin 1.0 Time Ratio INR 0.91 International Normalized Rati o Activated 40.8 H Partial Thrombo plast Time Sodium Level 136 Potassium Level 5.4 H Chloride Level 94 L Carbon Dioxide 34 H Level Anion Gap 8 Blood Urea 38 H Nitrogen Creatinine 1.68 H Est Glomerular 41 L Filtrat Rate mL/min Glucose Level 173 POC Venous 2.0 2.0 Lactate Calcium Level 9.4 Total Bilirubin 0.0 L Direct 0.00 Bilirubin Indirect 0.0 Bilirubin Aspartate Amino 173 H Transf (AST/SGO T) Alanine 122 H Aminotransferas e (ALT/SGPT) Alkaline 86 Phosphatase Troponin I 0.248 *H Total Protein 7.8 Albumin 4.0 Globulin 3.80 H Albumin/Globuli 1.05 n Ratio Urine Color JIM Urine Clarity CLOUDY A Urine pH 5.0 Urine Specific 1.016 Drumore Urine Ketones NEGATIVE Urine Nitrite NEGATIVE Urine Bilirubin NEGATIVE Urine 1+ H Urobilinogen Urine Leukocyte 1+ H Esterase Urine 4 Microscopic RBC Urine 33 H Microscopic WBC Urine Amorphous MANY A Crystals Urine Bacteria FEW A Urine Hyaline FEW A Casts Urine Mucus FEW A Urine NEGATIVE Hemoglobin Urine Glucose NEGATIVE Urine Total 2+ H Protein Blood Gas Blood Specimen arterial Source Arterial Blood 08/26/2018 10:0 Date Drawn 0:42 PM Arterial Blood 7.203 *L pH (Temp corrected ) Arterial Blood 74.7 H pCO2 (Temp correct) Arterial Blood 156.9 H pO2 (Temp corrected ) Arterial Blood 28.7 H HCO3 Arterial Blood -1.1 Base Excess Arterial Blood 98.9 H Oxygen Saturati on Miller Test N/A Arterial Blood Right Gas Brachial Puncture Site Arterial 2.3 Blood Carboxyhe moglobin Arterial Blood 0.1 Methemoglobin Blood Gas A-a 481.4 H O2 Differential Oxyhemoglobin 96.5 Percent Blood Gas 37.0 Temperature Blood Gas 16.0 Respiration Rate Blood Gas 16 Actual Respiration Rat e Blood Gas VENT - AC Modality FiO2 100.0 Blood Gas Tidal 500.0 Volume Blood Gas N EKMARIA ESTHER Critical Value Read Back Blood Gas UP Notified Whom Blood Gas 08/26/2018 10:1 Notified Time 4:35 PM Test 08/27/18 00:50 08/27/18 02:18 08/27/18 10:31 Blood Gas Blood arterial Blood arterial Specimen Source Arterial Blood 08/27/2018 1:15: 08/27/2018 10:54 Date Drawn 59 AM :53 AM Arterial Blood 7.362 7.392 pH (Temp corrected ) Arterial Blood 47.1 H 44.3 pCO2 (Temp correct) Arterial Blood 41.9 *L 264.4 H pO2 (Temp corrected ) Arterial Blood 26.1 H 26.3 H HCO3 Arterial Blood 0.2 1.1 Base Excess Arterial Blood 77.2 L 99.7 H Oxygen Saturati on Miller Test ACCEPTAB ACCEPTAB Arterial Blood Right Radial Right Radial Gas Puncture Site Arterial 1.6 0.8 Blood Carboxyhe moglobin Arterial Blood 0 0.3 Methemoglobin Blood Gas A-a 624.0 H 404.3 H O2 Differential Oxyhemoglobin 76.0 L 98.6 Percent Blood Gas 37.0 37.0 Temperature Blood Gas 26.0 26.0 Respiration Rate Blood Gas 26 26 Actual Respiration Rat e Blood Gas VENT - AC VENT - AC Modality FiO2 100.0 100.0 Blood Gas Tidal 500.0 500.0 Volume Blood Gas Low 5.0 5.0 PEEP Setting Blood Gas D YEFRI ISAAC Critical Value Read Back Blood Gas UP TM Notified Whom Blood Gas 08/27/2018 1:30: 08/27/2018 11:12 Notified Time 16 AM :36 AM White Blood 21.3 H Count Red Blood Count 4.33 L Hemoglobin 12.1 L Hematocrit 40.0 L Mean 92.4 Corpuscular Volume Mean 27.9 L Corpuscular Hemoglobin Mean 30.3 L Corpuscular Hemoglobin Conc ent Red Cell 15.4 H Distribution Width Platelet Count 138 L Mean Platelet 11.0 H Volume Immature 1.000 H Granulocytes % Neutrophils % 81.6 H Lymphocytes % 8.8 L Monocytes % 8.5 Eosinophils % 0.0 Basophils % 0.1 Nucleated Red 0.4 H Blood Cells % Immature 0.220 H Granulocytes # Neutrophils # 17.3 H Lymphocytes # 1.9 Monocytes # 1.8 H Eosinophils # 0.0 Basophils # 0.0 Nucleated Red 0.1 H Blood Cells # Sodium Level 139 Potassium Level 4.7 Chloride Level 103 Carbon Dioxide 30 Level Anion Gap 6 Blood Urea 41 H Nitrogen Creatinine 1.47 H Est Glomerular 48 L Filtrat Rate mL/min Glucose Level 138 Hemoglobin A1c 5.6 Lactic Acid 2.6 *H Level Calcium Level 9.2 Consultation Date/Type/Reason Admit Date/Time Aug 27, 2018 at 00:03 Hx of Present Illness The patient is a 68-year-old male recently discharged from assisted living due to home O2 requirements. Patient came to the ER and was immediately intubated for saturation of 50%. No history is obtainable. Patient does not have family. Patient then had cardiac arrest and required chest compressions. A CT after chest compressions did revealed a pneumothorax and a pneumoperitoneum. A chest x-ray prior to intubation did not reveal a pneumoperitoneum. 14 point review of systems was performed. Pertinent negatives a possible HPI Past Medical History Medical History: other (COPD, BPH, schizophrenia) Medications Current Medications Sodium Chloride 1,000 ml @ 100 mls/hr Q10H IV Last administered on 08/27/18at 06:08; Admin Dose 100 MLS/HR; Start 08/26/18 at 23:03 Ondansetron HCl (Zofran Inj) 4 mg Q6H PRN IV NAUSEA AND/OR VOMITING; Start 08/26/18 at 23:30 Acetaminophen (Tylenol Supp) 650 mg Q4H PRN [place] PAIN LEVEL 1-3 OR FEVER; Start 08/26/18 at 23:30 Morphine Sulfate (morphine) 2 mg Q4H PRN IV PAIN LEVEL 7-10; Start 08/26/18 at 23:30 Famotidine (Pepcid Iv) 20 mg Q12 IV Last administered on 08/27/18at 08:24; Admin Dose 20 MG; Start 08/27/18 at 09:00 Enoxaparin Sodium (Lovenox) 30 mg DAILY SC ; Start 08/27/18 at 09:00 Piperacillin Sod/ Tazobactam Sod 100 ml @ 200 mls/hr Q6 IVPB Last administered on 08/27/18at 11:31; Admin Dose 200 MLS/HR; Start 08/27/18 at 00:00 Norepinephrine 250 ml @ 1.875 mls/ hr TITRATE IV Last administered on 08/27/18at 09:48; Admin Dose 37.5 MLS/HR; Start 08/27/18 at 00:30 Dopamine HCl/ Dextrose 250 ml @ 5.625 mls/ hr TITRATE IV Last administered on 08/27/18at 01:58; Admin Dose 5.625 MLS/HR; Start 08/27/18 at 02:00 Influenza Virus Vaccine Quadrival (Fluzone) 0.5 ml ONCE ONCE IM* ; Start 08/28/18 at 10:00; Stop 08/28/18 at 10:01 Propofol 100 ml @ 1.875 mls/ hr Q12H IV Last administered on 08/27/18at 06:20; Admin Dose 9.375 MLS/HR; Start 08/27/18 at 06:30 Vancomycin HCl (Vanco Iv Per Pharmacy) VANCOMYCIN PER PHARMACY PER PROTOCOL XX ; Start 08/27/18 at 14:00; Status UNV Allergies: Coded Allergies: No Known Allergy (Unverified , 08/26/18) Social History Smoking Status: Unknown if ever smoked Exam/Review of Systems Vital Signs Vitals Vital Signs Date Temp Pulse Resp B/P (MAP) Pulse Ox O2 O2 Flow FiO2 Time Delivery Rate 08/27/18 82 26 109/83 98 Mechanical 13:00 (92) Ventilator 08/27/18 100 12:55 08/27/18 97.6 08:00 08/26/18 15 18:34 Intake and Output 08/26/18 08/26/18 08/27/18 1515:00 23:00 07:00 IntakeIntake Total 745.625 ml OutputOutput Total 435 ml BalanceBalance 310.625 ml Exam Constitutional: other (Intubated and sedated but respondeds to painful stimuli) Head: normocephalic Eyes: nl conjunctiva ENMT: nl external ears & nose Neck: supple, non-tender Respiratory: other (Creased breath sounds bilaterally) Cardiovascular: regular rate and rhythm Gastrointestinal: soft, other (Elderly distended but nontender and specifically no peritoneal findings) Extremities: normal pulses Neurological: SENIOR MAINTENANCE MECHANIC II-XII intact, nl mental status Skin: nl turgor, rash or lesions Lymph: nl lymph nodes Medications Medications Current Medications Sodium Chloride 1,000 ml @ 100 mls/hr Q10H IV Last administered on 08/27/18at 06:08; Admin Dose 100 MLS/HR; Start 08/26/18 at 23:03 Ondansetron HCl (Zofran Inj) 4 mg Q6H PRN IV NAUSEA AND/OR VOMITING; Start 08/26/18 at 23:30 Acetaminophen (Tylenol Supp) 650 mg Q4H PRN [place] PAIN LEVEL 1-3 OR FEVER; Start 08/26/18 at 23:30 Morphine Sulfate (morphine) 2 mg Q4H PRN IV PAIN LEVEL 7-10; Start 08/26/18 at 23:30 Famotidine (Pepcid Iv) 20 mg Q12 IV Last administered on 08/27/18at 08:24; Admin Dose 20 MG; Start 08/27/18 at 09:00 Enoxaparin Sodium (Lovenox) 30 mg DAILY SC ; Start 08/27/18 at 09:00 Piperacillin Sod/ Tazobactam Sod 100 ml @ 200 mls/hr Q6 IVPB Last administered on 08/27/18at 11:31; Admin Dose 200 MLS/HR; Start 08/27/18 at 00:00 Norepinephrine 250 ml @ 1.875 mls/ hr TITRATE IV Last administered on 08/27/18at 09:48; Admin Dose 37.5 MLS/HR; Start 08/27/18 at 00:30 Dopamine HCl/ Dextrose 250 ml @ 5.625 mls/ hr TITRATE IV Last administered on 08/27/18at 01:58; Admin Dose 5.625 MLS/HR; Start 08/27/18 at 02:00 Influenza Virus Vaccine Quadrival (Fluzone) 0.5 ml ONCE ONCE IM* ; Start 08/28/18 at 10:00; Stop 08/28/18 at 10:01 Propofol 100 ml @ 1.875 mls/ hr Q12H IV Last administered on 08/27/18at 06:20; Admin Dose 9.375 MLS/HR; Start 08/27/18 at 06:30 Vancomycin HCl (Vanco Iv Per Pharmacy) VANCOMYCIN PER PHARMACY PER PROTOCOL XX ; Start 08/27/18 at 14:00; Status UNV Imaging Imaging Patient: AFSHIN PALMA : 1950 Age: 68 Sex: M MR #: [id number] DOS: 08/27/18 0000 Ordering MD: ANEESH COLE MD Location: ICU Room/Bed: [facility] AMENDMENT: 08/27/2018 10:42:24 AM Bruce Gonzalez M.D Following discussion with Dr. Cole, it is noted that oral contrast administered reaches the mid small bowel level. There is no evidence of oral contrast extravasation or leakage. The possibility of pneumoperitoneum developing from dissection of air from the chest/pneumothorax through the retroperitoneum into the abdomen during code blue rather than a perforated hollow viscus was raised. Call report: Findings discussed with Dr. Cole on 08/27/2018 10:39:19 AM. PROCEDURE: CT Abdomen and Pelvis without intravenous contrast. CLINICAL INDICATION: Pneumoperitoneum . Rule out perforated viscus. TECHNIQUE: CT scan of the abdomen and pelvis without intravenous contrast was performed on a multi-slice CT scanner. Coronal and sagittal reformatted images were obtained from the axial source images. Images were reviewed on a high- resolution PACS workstation. DICOM images are available. Total DLP = 683.4 mGy-cm. CTDIvol = 10.9 mGy. One or more of the following dose reduction techniques were used: Automated exposure control. Adjustment of the mA and/or kV according to patient size. Use of iterative reconstruction technique. COMPARISON: CT 08/27/2018 FINDINGS: CT abdomen and pelvis: The lung bases demonstrates extensive bullous emphysematous changes at the lung bases. There is a left-sided pleural catheter in place with trace pneumothorax. Bilateral basilar atelectasis or consolidations are seen. Calcified pleural plaque is noted in the right lung base.. The heart size is normal in size. The liver is normal in size and density without focal mass or intrahepatic biliary dilatation. There is a small cyst in the left lobe of the liver.. The spleen is normal in size and homogeneous in density. The pancreas as visualized is normal. The gallbladder shows no evidence of stones or distension . The adrenal glands demonstrates bilateral hypertrophy or nodularity.. The kidneys are atrophic with cortical scarring and thinning. There is no evidence of obstructive uropathy or urolithiasis.. The stomach is partially collapsed, but is grossly unremarkable. There is a nasogastric tube in place. Oral contrast is seen in the stomach and proximal sma ll bowel loops.. The small bowels are unremarkable. The colon and rectum are normal. There is no evidence of appendicitis or diverticulitis. The prostate is enlarged.. The bladder is decompressed with balloon tip Sellers catheter in place.. There is large pneumoperitoneum in the anterior abdomen similar to prior exam. Interstitial area in the left omental and peritoneal fat is again noted. There is no abdominal or pelvic adenopathy. Trace free fluid is seen in the abdomen. The aorta is normal in caliber with calcific atherosclerosis . The osseous structures showing degenerative enthesopathy of the spine. No osteolytic or osteoblastic lesions are identified. There are moderate compression fractures of the T12 and L2 vertebra unchanged. There is a right hip arthroplasty in place. There is sclerosis of the left femoral head consistent with avascular necrosis.. Soft tissue emphysema is seen in the left lower anterior pelvis extending into the left scrotum unchanged. Small amount of subcutaneous emphysema is also seen in the left upper quadrant of the abdominal wall. Lack of IV and oral contrast limits sensitivity of exam. IMPRESSION: 1. Large pneumoperitoneum with interstitial air in the left omental fat unchanged. Findings are consistent with perforated hollow viscus. Site of perforation is unclear. 2. Soft tissue emphysema in the left inguinal region extending into the scrotum as well as the left upper quadrant of the anterior abdominal wall. 3. Left-sided chest tube in place with small left pneumothorax. 4. Extensive bullous emphysematous changes of the lung bases with bibasilar consolidations and infiltrates. 5. Bilateral adrenal hyperplasia and nodularity. 6. Moderate compression fractures of the T12 and L2 vertebra unchanged. 7. Nasogastric tube and Sellesr catheter in place. 8. Avascular necrosis of the left femoral head. Status post right hip arthr oplasty. 9. Prostatomegaly. RPTAT: [facility] .Bruce Gonzalez MD, MD Date Time Electronically viewed and signed by .Bruce Gonzalez MD, MD on 08/27/2018 10:42 .L/ CC: ANEESH COLE MD [id number] ANEESH COLE MD Aug 27, 2018 14:18
--- NOTE | 2018-08-27 17:00 | CONS ---
DATE OF ADMISSION: 08/27/2018 DATE OF CONSULTATION: 08/27/2018 TYPE OF CONSULTATION: Cardiology. REFERRING PHYSICIAN: Prasad Juarez MD REASON FOR EVALUATION: Elevated troponins, tachycardia, hypertension. HISTORY OF PRESENT ILLNESS: Mr. Black is a 68-year-old gentleman who comes from a intermediate af ter cardiac arrest. The etiology of his arrest is unclear as the patient is currently intubated and not able to provide any history. Apparently, he received CPR in the emergency department. The patie nt had a pneumothorax to follow which required a chest tube. On presentation, the patient was with r ight bundle branch block and had some nonspecific ST-T changes somewhat suggestive ST elevation in se ptal leads. The patient's initial troponin was borderline and there is no followup troponin done. W e are going to obtain one shortly. There is another EKG here which shows very deep T-wave inversions also suggestive of ____. In the setting of this event, the plan is for patient to have continuous m edical surveillance. He will get another set of troponin. We will obtain a 2D echo now to establish ejection fraction and follow the patient expectantly. There is also concern for perforated viscus, which is being addressed by the primary team. I think for now conservative therapy and optimization will be needed. PAST MEDICAL HISTORY: Psychiatric illness, history of hypertension, possible history of tobacco use, ____, acute on chronic. ALLERGIES: NO KNOWN DRUG ALLERGIES. SOCIAL HISTORY: The patient does not smoke, does not drink, does not use any drugs. FAMILY HISTORY: Negative for sudden cardiac . MEDICATIONS: Here include: 1. Vancomycin. 2. Famotidine. 3. Subcutaneous Lovenox. 4. Propofol. 5. Dopamine. 6. Norepinephrine. 7. Zosyn. 8. Ondansetron. 9. Sodium chloride. REVIEW OF SYSTEMS: CONSTITUTIONAL: No fevers, no chills. Per discussion with nurses, the patient has cardiac arrest in the emergency room. HEENT: No changes in vision or hearing. CARDIAC: No chest pain currently. RESPIRATORY: The patient is with chest tube with some drainage. GASTROINTESTINAL: No nausea, vomiting noted. GENITOURINARY: No dysuria, hematuria. Decreased urine output. NEUROLOGIC: Now sedated. PSYCHIATRIC: History of psychiatric disorder. PHYSICAL EXAMINATION: VITAL SIGNS: Temperature is 98.2, heart rate is 82, blood pressure 109/83. GENERAL: He is a well-nourished gentleman in no acute distress, alert and oriented, does not appear to be aware of his condition. HEENT: Head is normocephalic. Extraocular muscles are intact. He is intubated. NECK: Supple. JVD is 6 to 7 cm. There is no lymphadenopathy. HEART: Regular, soft I/ systolic murmur. PMI is nondisplaced. LUNGS: Coarse to bases. ABDOMEN: Distended, bowel sounds are present. There is no hepatosplenomegaly. GENITOURINARY: Grossly intact. EXTREMITIES: No clubbing, cyanosis. Trace edema. LABORATORY DATA: Sodium 139, potassium 4.7, BUN 41, creatinine 1.4. Hemoglobin A1c is 5.6. Lactic acid is 2.6. His initial troponin is 0.248. INR is 0.9. White blood cell 21.4, hemoglobin 7.4, trae telets 138. ASSESSMENT AND PLAN: 1. Elevated troponin. The patient has elevated troponin, etiology of that is still unclear to me. We will check another set of troponins. He had some nonspecific ST-T changes in his septal leads, wh ich is discordant to the bundle branch block and the patient also has some ST depression on prior EKG s which could be just recovery changes. I think for now, another set of troponins will be warranted. We will continue to follow with significant titrating dopamine as quickly as possible. 2. Hypertension. Continue Levophed now. 3. Pneumothorax, which was treated with chest tube. Continue respiratory support. The patient is i ntubated ____ unclear whether viscus perforation noted. Surgical team follows. 4. Psychiatric illness. Defer to primary team. I would like to thank Dr. Juarez for referring this patient for my evaluation. Dictated By: JIE ALEJO MD ML/NTS Conf#: [id number] DID#: [id number] CC: WENDY LOVE MD; KHUSHI PATTON MD;*End*
[2018-08-27] MEDS: VANCOMYCIN 1 GM 250 ML IVPB SCH (17:24)
--- NOTE | 2018-08-27 17:45 | CONS ---
DATE OF ADMISSION: 08/27/2018 DATE OF CONSULTATION: 08/27/2018 INFECTIOUS DISEASE CONSULTATION REASON FOR CONSULTATION: Antibiotic management. HISTORY OF PRESENT ILLNESS: Jeremiah Black is a 68-year-old male who was admitted on the with al tered levels of consciousness and respiratory distress. He was brought in from a board and care in r espiratory distress, confused and hypoxic. His past problems include: 1. Bipolar disorder. 2. Psychosis with depressive disorder. 3. Hyperlipidemia. 4. BPH. 5. Weakness. On admission, his white count was 20.2, H and H of 13.5 and 46.5, platelet count 124. BUN and creati nine 38/1.68. The patient was lying in the gurney in agonal respirations, cachectic. He was started on vancomycin and Zosyn. As noted, his white count was 20.2 with 87% polys. The patient was intuba johnie. Chest x-ray showed new endotracheal tube in an appropriate position, right lower lobe infiltrat e, moderate right pleural effusion, patchy linear atelectatic changes and increased interstitial prince ges in the left lung. The patient had a new large left pneumothorax on the KUB, new large amount of free intraperitoneal air. An NG tube was extending below the diaphragm, actually an OG tube within t he stomach. There was, therefore, placement of a left-sided chest tube with reexpansion of the left lung, no evidence of pneumothorax, free intraperitoneal air again present. A central line was placed as well. The patient was presenting with hypothermia, altered mental status with evidence of acute respiratory failure. As noted, he has an ET tube and an NG tube. He has a chest tube and currently is on Levophed. He has evidence of a non-STEMI. The patient's symptoms did not stabilize. HOSPITAL COURSE: The patient comes in in septic shock, respiratory failure with pneumonia, hyperkale zenia, hypothermia. PAST MEDICAL HISTORY: As outlined. FAMILY HISTORY: Noncontributory. SOCIAL HISTORY: He does not smoke, drink or abuse drugs. ALLERGIES: NONE TO PENICILLIN, SULFA OR FOODS. MEDICATIONS: Per chart. REVIEW OF SYSTEMS: Noncontributory. PHYSICAL EXAMINATION: GENERAL: The patient is a cachectic-appearing male who is intubated on a respirator. He has an ET t ube, NG tube, Sellers catheter. He has a central line and a left chest tube. SKIN: Without generalized rash. HEENT: Within normal limits. NECK: Supple. LYMPH NODES: None palpable. CHEST: Decreased breath sounds at the bases. HEART: Tachycardic without murmur or gallop. ABDOMEN: Soft, nontender, without organosplenomegaly or masses. EXTREMITIES: Without cyanosis, clubbing or edema. RECTAL/GENITAL: Deferred. NEUROLOGIC: The patient is obtunded and he is sedated. IMPRESSION AND PLAN: The patient comes in with essentially cardiac arrest with septic shock, current ly on norepinephrine, dopamine, propofol and, of course, vancomycin and Zosyn. We will await his cul tures. He currently has large pneumoperitoneum and interstitial air within the left abdominal omentu m and mesentery. According to Dr. Caldwell, he does not feel that the patient has a ruptured viscus. Pneumoperitoneum likely from the trauma of chest compressions versus ruptured bleb. I will dictate m y findings to Dr. Juarez and Nurse Mirlande as well as the consultants, , Dr. Florentino and Dr. Caldwell. Dictated By: SBYIL JARVIS MD, JD/DUKE Conf#: [id number] DID#: [id number] CC: WENDY LOVE MD;*EndCC*
--- NOTE | 2018-08-27 18:46 | CONS ---
DATE OF ADMISSION: 08/27/2018 DATE OF CONSULTATION: 08/27/2018 TYPE OF CONSULTATION: Nephrology. REASON FOR CONSULTATION: Acute kidney injury. PHYSICIAN REQUESTING CONSULT: Prasad Juarez MD HISTORY OF PRESENT ILLNESS: This is a 68-year-old male with a past medical history of COPD, history of bipolar disorder, BPH, depression, seizure disorder, dyslipidemia, who was brought in from his [facility] [facility] to [facility] Emergency Room for confusion and hypoxemia. The patient in the emergency room underwent cardiac arrest, requiring CPR, intubation with eventual spontaneous r eturn of circulation. The patient also had a chest tube placed. CT scan of the abdomen and pelvis w as performed which showed evidence of pneumoperitoneum. The patient was seen by general surgery, Dr. Caldwell, who felt that the pneumoperitoneum was likely due to cardiac resuscitation. The patient fol lowing a code arrest was noted to be in shock, was admitted to intensive care unit where he has been on IV fluids and pressor support. In terms of patient's renal history, the patient was on admission noted to have a creatinine of 1.68 mg/dL. Baseline renal function is currently unknown. The patient has had excellent urinary output. There have been no reports of any hemoptysis, hematemesis or hematochezia. PAST MEDICAL HISTORY: As stated above, history of BPH, history of depression, history of COPD, bipol ar disorder, history of dyslipidemia. PAST SURGICAL HISTORY: Unknown. SOCIAL HISTORY: Unknown. FAMILY HISTORY: Unknown. REVIEW OF SYSTEMS: Unable to do adequate review of systems as the patient is intubated and sedated. Pertinent positives as obtained by reviewing medical records, speaking to hospital staff, stated in HPI, otherwise negative. PHYSICAL EXAMINATION: VITAL SIGNS: Blood pressure is 112/76, respiration 26, pulse 75, temperature 98.6. HEENT: Head is normocephalic. NECK: Supple. HEART: Regular rate. LUNGS: Show diminished breath sounds at the base. ABDOMEN: Soft, nontender to palpation without rebound or guarding. EXTREMITIES: Negative for clubbing, cyanosis. No edema. DERMATOLOGIC: No rashes. MUSCULOSKELETAL: No joint effusions. NEUROLOGIC: Limited exam as the patient is sedated and intubated. LABORATORY DATA: Show sodium of 139, potassium 4.7, chloride 103, bicarb 30, BUN 41, creatinine 1.47 . Lactic acid 2.6. The patient's ABG was reviewed, which showed pH of 7.32, pCO2 of 44. White coun t 21.3, hemoglobin 10.1, platelet count is 138. IMAGING STUDIES: CT abdomen and pelvis was reviewed. Chest x-ray shows left-sided chest tube, hazy airspace disease and pneumoperitoneum. ASSESSMENT AND PLAN: This is a 68-year-old male who presents with: 1. Nonoliguric acute kidney injury with unknown baseline creatinine. Etiology of acute kidney injur y is multifactorial, likely secondary to hemodynamics, acute tubular necrosis due to shock, septic ac [place] kidney injury. The patient's initial urinalysis does show evidence of hyaline casts and proteinu joaquin which can be seen in tubular injury. The patient does have underlying pyuria but no hematuria. Lower suspicion for acute glomerulonephritis or vasculitis given patient's clinical presentation. Re nal function has been improving with IV hydration. Additionally, the patient's imaging studies did s uggest increased echogenicity of bilateral kidneys consistent with possible chronic kidney disease. Recommendation at this point is to continue current medical management. Continue pressor support to maintain MAP above 65. Continue IV fluids. Continue antibiotic therapy. We will continue supportiv e care, renally dose meds, avoid nephrotoxins. 2. Anemia. Monitor hemoglobin and hematocrit levels. 3. Mineral bone disorder. Monitor calcium and phosphorus levels. 4. Lactic acidosis. Etiology is likely secondary to septic shock. The patient's ABG was reviewed, currently compensated. No need for bicarbonate therapy. We will continue to monitor. Continue to t reat underlying shock. 5. Ventilator-dependent respiratory failure. Vent settings and ABG was reviewed. Continue to monit or. 6. Septic shock secondary to pneumonia. Continue medical management with IV fluids and pressor supp ort. 7. Status post cardiac arrest, likely secondary to sepsis. Continue to monitor. Follow up with car diology. 8. Left-sided pneumothorax, status post chest tube placement. 9. Pneumoperitoneum, questionable perforated viscus. The patient was seen by general surgery. Cont inue to monitor. 10. Encephalopathy, etiology is toxic metabolic. Thank you, Dr. Juarez, for this interesting consult. It will be a pleasure to follow the patient w ith sil throughout the hospital course. Dictated By: JOE CHU/DUKE Conf#: [id number] DID#: [id number] CC: KHUSHI PATTON MD; WENDY LOVE MD;*End*
[2018-08-28] VITALS (103 sets, daily range): BP systolic 87–134; BP diastolic 61–110; PULSE 46–84; RESP 15–31
[2018-08-28] MEDS: SOD CHLORIDE 0.9% 1,000 ML IV SCH ×2 (04:42→15:38)
[2018-08-28] MEDS: PROPOFOL 100 ML IV SCH ×3 (04:42→21:02)
[2018-08-28] MEDS: PIPER-TAZO 3.375 GM IV (PMX) 100 ML IVPB SCH ×3 (06:12→17:04)
--- NOTE | 2018-08-28 07:47 | PN ---
DATE: 08/28/2018 SUBJECTIVE: The patient remains critically ill on pressor support, on full ventilatory support. Uri nary output has been adequate. No other events noted. OBJECTIVE: VITAL SIGNS: Blood pressure is 101/82, respirations 26, pulse 64, temperature 98.6. HEENT: Head is normocephalic. NECK: Supple. HEART: Regular rate. LUNGS: Show diminished breath sounds at the base. ABDOMEN: Soft, nontender to palpation. No rebound or guarding. EXTREMITIES: Negative for clubbing, cyanosis, no edema. DERMATOLOGIC: No rashes. MUSCULOSKELETAL: No joint effusions. NEUROLOGIC: No change in exam. MEDICATIONS: The patient's medications have been reviewed. LABORATORY DATA: Shows sodium 142, BUN 34, creatinine 1.51. White count 11.3, hemoglobin 10.5, plat elet count is 128. ASSESSMENT AND PLAN: 1. Nonoliguric acute kidney injury with unknown baseline creatinine, possible chronic kidney disease . Etiology is multifactorial, likely secondary to acute tubular necrosis due to septic acute kidney injury, shock causing ischemic hyperperfusion. The patient's renal function has been fluctuating but overall stable in the last 72 hours. At this point, we would continue current treatment plan. Cont inue pressor support to maintain MAP of 65. Continue IV hydration. At this time, we will deescalate as pressor support continues to be weaned off. We would otherwise continue to renally dose all medi cines and avoid nephrotoxins. Please note we will also check renal ultrasound to better evaluate herbie al parenchyma. 2. Anemia. Continue to monitor hemoglobin and hematocrit levels. 3. Mineral bone disorder. Monitor calcium and phosphorus levels. 4. Possible chronic kidney disease. The patient's CT scan suggested increased echogenicity of kidne ys consistent with chronic disease. The patient is currently in acute kidney injury as stated above. Continue to monitor. 5. Lactic acidosis secondary to septic shock. The patient's lactic acid levels have resolved. Cont inue to monitor. ABG was reviewed. The patient is compensated. 6. Ventilator dependent respiratory failure. Vent settings and ABG was reviewed. Continue to monit or. 7. Septic shock secondary to pneumonia. Continue medical management. Continue broad spectrum antib iotics. Continue wean off pressors. Continue IV hydration. 8. Left-sided pneumothorax, status post chest tube placement. 9. Pneumoperitoneum likely due to cardiac arrest. Continue to monitor. The patient has been seen b y general surgery without perforated viscous. 10. Status post cardiac arrest. Continue to monitor. 11. Encephalopathy, etiology is toxic metabolic. Please note I spent over 30 minutes of critical care time with this patient. Dictated By: JOE BLACK DO NR/NTS Conf#: [id number] DID#: [id number] CC: VVIIANA NOLAN MD; KHUSHI PATTON MD; WENDY LOVE MD;*EndCC*
[2018-08-28] MEDS: FAMOTIDINE 20 MG INJ IV SCH ×2 (08:45→20:14)
[2018-08-28] MEDS: ENOXAPARIN 30 MG/0.3 ML SYG SC SCH (09:00)
--- NOTE | 2018-08-28 09:37 | CONS ---
Assessment/Plan Assessment/Plan Assessment/Plan Abdominal x-ray showing decreased pneumoperitoneum. Chest x-ray is pending from today. ABG is pending as well. Patient is currently on Levophed 30 mics per minute, propofol 40 mics per kilogram per minute. Assessment recommendations; next 1. Patient admitted with acute respiratory failure due to acute hypercapnia likely on the basis of underlying severe emphysema required brief CPR with intubation. 2. Pneumoperitoneum of uncertain etiology. Possibly CPR related. Based upon examination there is no evidence of any acute abdomen. 3. Placement of left chest tube. 4. Severe bullous emphysema. 5. Ongoing sepsis, patient requiring high-dose Levophed. Currently on appropriate antimicrobial regimen. 6. Mixed acidosis with interval improvement. 7. UTI. 8. Likely baseline renal insufficiency. 9. Anemia and thrombocytopenia. Hold further sedation to assess mental status. Decrease PEEP to 5. Decrease FiO2 to keep O2 saturation around 94%. Decrease assist control rate to 16. Obtain chest x-ray as well as ABG. Continue current antimicrobial regimen. Further recommendations once chest x-ray and ABG are performed. 35 minutes of critical care time was spent evaluating the patient. Result Diagram: 08/28/18 0340 08/28/18 0340 Results 24hrs Laboratory Tests Test 08/27/18 10:31 08/27/18 14:03 08/28/18 03:40 Blood Gas Specimen Source Blood arterial Arterial Blood Date Drawn 08/27/2018 10:54:53 AM Arterial Blood pH 7.392 (Temp corrected) Arterial Blood pCO2 44.3 (Temp correct) Arterial Blood pO2 264.4 H (Temp corrected) Arterial Blood HCO3 26.3 H Arterial Blood Base Excess 1.1 Arterial Blood 99.7 H Oxygen Saturation Miller Test ACCEPTAB Arterial Blood Gas Right Radial Puncture Site Arterial 0.8 Blood Carboxyhemoglobin Arterial Blood 0.3 Methemoglobin Blood Gas A-a O2 404.3 H Differential Oxyhemoglobin Percent 98.6 Blood Gas Temperature 37.0 Blood Gas Respiration Rate 26.0 Blood Gas Actual 26 Respiration Rate Blood Gas Modality VENT - AC FiO2 100.0 Blood Gas Tidal Volume 500.0 Blood Gas Low PEEP Setting 5.0 Blood Gas Notified Whom TM Blood Gas Notified Time 08/27/2018 11:12:36 AM Troponin I 0.311 *H White Blood Count 11.3 #H Red Blood Count 3.71 L Hemoglobin 10.5 L Hematocrit 32.9 L Mean Corpuscular Volume 88.7 Mean Corpuscular Hemoglobin 28.3 L Mean Corpuscular 31.9 L Hemoglobin Concent Red Cell Distribution Width 16.0 H Platelet Count 128 L Mean Platelet Volume 10.7 H Immature Granulocytes % 0.400 Neutrophils % 73.6 Lymphocytes % 15.9 Monocytes % 9.6 Eosinophils % 0.1 Basophils % 0.4 Nucleated Red Blood Cells % 0.0 Immature Granulocytes # 0.040 H Neutrophils # 8.3 H Lymphocytes # 1.8 Monocytes # 1.1 H Eosinophils # 0.0 Basophils # 0.0 Nucleated Red Blood Cells # 0.0 Sodium Level 142 Potassium Level 4.5 Chloride Level 105 Carbon Dioxide Level 26 Anion Gap 11 Blood Urea Nitrogen 34 H Creatinine 1.51 H Est Glomerular Filtrat 46 L Rate mL/min Glucose Level 94 # Lactic Acid Level 1.4 Calcium Level 8.6 Phosphorus Level 3.8 Magnesium Level 2.3 Consultation Date/Type/Reason Admit Date/Time Aug 27, 2018 at 00:03 Initial Consult Date 08/27/18 Type of Consult Pulmonary/critical care Patient is a 68-year-old male who is a alf resident was sent over to the hospital because of hypothermia and altered mental status. In the emergency room, patient developed cardiac arrest requiring CPR and intubation. In the course of workup the patient also required a chest tube placement on the left side. CT imaging of the abdomen showed pneumoperitoneum with possibly pe rforated viscus. By the time I saw the patient in ICU, patient is orally intubated and sedated. History was obtained from medical records. Past medical history; essentially unremarkable except for possibly COPD. Medications; reviewed. Patient is currently on dopamine at 6 mics per kilogram per minute, Levophed 20 mics per minute, propofol 25 mics per kilogram per minute. Other medications were also reviewed. Allergies; none. Social history; not available. Family history and occupational history is also not available. Review of system; unable to be obtained. General exam; elderly male, orally intubated, sedated, currently in no distress. 24 HR Interval Summary Free Text/Dictation Patient's condition remains critical. Still requiring high-dose Levophed for hypotension. General exam; elderly male, orally intubated. Currently no distress. Sedated. Exam/Review of Systems Vital Signs Vitals Vital Signs Date Temp Pulse Resp B/P (MAP) Pulse Ox O2 O2 Flow FiO2 Time Delivery Rate 08/28/18 62 08:00 08/28/18 98.5 26 134/97 100 Mechanical 08:00 (109) Ventilator 08/28/18 50 05:30 08/26/18 15 18:34 Intake and Output 08/27/18 08/27/18 08/28/18 1515:00 23:00 07:00 IntakeIntake Total 1366.876 ml 1202.313 ml 1128.625 ml OutputOutput Total 640 ml 700 ml 420 ml BalanceBalance 726.876 ml 502.313 ml 708.625 ml Exam H EENT exam; supple neck, no JVD. No lymphadenopathy. Midline trachea. No thyromegaly. Patient is edentulous. Orally intubated. There is a right corneal opacity. Patient has a left surgical pupil. Chest exam; diminished but clear breath sounds. S1-S2 audible, no murmurs. Regular rhythm. Left-sided chest tube in place. Has drained 20 mL overnight. Abdomen exam; soft, no organomegaly. Nondistended. Bowel sounds audible. Extremity exam; no peripheral edema or clubbing. Pulses 1+. [employer] exam; patient is sedated. Medications Medications Current Medications Sodium Chloride 1,000 ml @ 100 mls/hr Q10H IV Last administered on 08/28/18at 04:42; Admin Dose 100 MLS/HR; Start 08/26/18 at 23:03 Ondansetron HCl (Zofran Inj) 4 mg Q6H PRN IV NAUSEA AND/OR VOMITING; Start 08/26/18 at 23:30 Acetaminophen (Tylenol Supp) 650 mg Q4H PRN [place] PAIN LEVEL 1-3 OR FEVER; Start 08/26/18 at 23:30 Morphine Sulfate (morphine) 2 mg Q4H PRN IV PAIN LEVEL 7-10; Start 08/26/18 at 23:30 Famotidine (Pepcid Iv) 20 mg Q12 IV Last administered on 08/28/18at 08:45; Admin Dose 20 MG; Start 08/27/18 at 09:00 Enoxaparin Sodium (Lovenox) 30 mg DAILY SC ; Start 08/27/18 at 09:00 Piperacillin Sod/ Tazobactam Sod 100 ml @ 200 mls/hr Q6 IVPB Last administered on 08/28/18at 06:12; Admin Dose 200 MLS/HR; Start 08/27/18 at 00:00 Norepinephrine 250 ml @ 1.875 mls/ hr TITRATE IV Last administered on 08/27/18at 09:48; Admin Dose 37.5 MLS/HR; Start 08/27/18 at 00:30 Dopamine HCl/ Dextrose 250 ml @ 5.625 mls/ hr TITRATE IV Last administered on 08/27/18at 18:00; Admin Dose 16.875 MLS/HR; Start 08/27/18 at 02:00 Influenza Virus Vaccine Quadrival (Fluzone) 0.5 ml ONCE ONCE IM* ; Start 08/28/18 at 10:00; Stop 08/28/18 at 10:01 Propofol 100 ml @ 1.875 mls/ hr Q12H IV Last administered on 08/28/18at 04:42; Admin Dose 15 MLS/HR; Start 08/27/18 at 06:30 Vancomycin HCl (Vanco Iv Per Pharmacy) VANCOMYCIN PER PHARMACY PER PROTOCOL XX ; Start 08/27/18 at 14:00 Vancomycin HCl 250 ml @ 125 mls/hr Q24H IVPB Last administered on 08/27/18at 17:24; Admin Dose 125 MLS/HR; Start 08/27/18 at 17:00 Date/Time of Note Date/Time of Note DATE: 08/28/18 TIME: 09:31 GAMALIEL BASILIO Aug 28, 2018 09:37
[2018-08-28] MEDS ORDERED: ALBUTEROL HFA 8 GM INHALER INH PRN (10:00)
[2018-08-28] MEDS ORDERED: INFLUENZA VIRUS VACCINE 0.5 ML (DISPENSING) IM* ONE (10:00)
--- NOTE | 2018-08-28 11:29 | CONS ---
Assessment/Plan Assessment/Plan Hospital Course (Demo Recall) IMP: 1.Hypotension-on levo 2.resp failure s/p intubation 3.cardiac arrest 4.pneumoperitoneum 5.Positive troponin 6.renal failure 7.Leukocytosis 8. anemia 9, Thrombocytopenia Recc: -ICU -wean pressors -trend cardiac enzynes -F/U echo -start asa -Continue abx's and f/u cx data -ongoing surgical eval Consultation Date/Type/Reason Admit Date/Time Aug 27, 2018 at 00:03 Initial Consult Date 08/27/18 Type of Consult Cardiology Reason for Consultation cardiac arrest Requesting Provider: VIVIANA NOLAN MD Date/Time of Note DATE: 08/28/18 TIME: 11:24 Exam/Review of Systems Vital Signs Vitals Vital Signs Date Temp Pulse Resp B/P (MAP) Pulse Ox O2 O2 Flow FiO2 Time Delivery Rate 08/28/18 77 26 96/71 (79) 98 10:30 08/28/18 Mechanical 10:00 Ventilator 08/28/18 50 09:10 08/28/18 98.5 08:00 08/26/18 15 18:34 Intake and Output 08/27/18 08/27/18 08/28/18 1414:59 22:59 06:59 IntakeIntake Total 1478.126 ml 1234.813 ml 1126.125 ml OutputOutput Total 600 ml 740 ml 430 ml BalanceBalance 878.126 ml 494.813 ml 696.125 ml Exam Exam Review of Systems: CONSTITUTIONAL: No fevers, chills. PULMONARY: No sob CARDIOVASCULAR: No chest pain/palpitations GASTROINTESTINAL: No nausea/vomiting. GENITOURINARY: No hematuria/dysuria. MUSCULOSKELETAL: No myagias/arthalgias. PSYCHIATRIC: The patient denies depression. NEUROLOGIC: No weakness Constitutional: alert Psych: no complaints Head: normocephalic ENMT: mucosa pink and moist Neck: supple, jvd (9 cm water) Respiratory: diminished breath sounds Cardiovascular: regular rate and rhythm Gastrointestinal: soft, non-tender Musculoskeletal: muscle tone (normal) Extremities: edema (none) Neurological: other (No focal deficits) Labs Result Diagram: 08/28/18 0340 08/28/18 0340 Results 24hrs Laboratory Tests Test 08/27/18 14:03 08/28/18 03:40 08/28/18 09:11 Troponin I 0.311 *H White Blood Count 11.3 #H Red Blood Count 3.71 L Hemoglobin 10.5 L Hematocrit 32.9 L Mean Corpuscular Volume 88.7 Mean Corpuscular Hemoglobin 28.3 L Mean Corpuscular 31.9 L Hemoglobin Concent Red Cell Distribution Width 16.0 H Platelet Count 128 L Mean Platelet Volume 10.7 H Immature Granulocytes % 0.400 Neutrophils % 73.6 Lymphocytes % 15.9 Monocytes % 9.6 Eosinophils % 0.1 Basophils % 0.4 Nucleated Red Blood Cells % 0.0 Immature Granulocytes # 0.040 H Neutrophils # 8.3 H Lymphocytes # 1.8 Monocytes # 1.1 H Eosinophils # 0.0 Basophils # 0.0 Nucleated Red Blood Cells # 0.0 Sodium Level 142 Potassium Level 4.5 Chloride Level 105 Carbon Dioxide Level 26 Anion Gap 11 Blood Urea Nitrogen 34 H Creatinine 1.51 H Est Glomerular Filtrat 46 L Rate mL/min Glucose Level 94 # Lactic Acid Level 1.4 Calcium Level 8.6 Phosphorus Level 3.8 Magnesium Level 2.3 Blood Gas Specimen Source Blood arterial Arterial Blood Date Drawn 08/28/2018 9:44:19 AM Arterial Blood pH 7.322 L (Temp corrected) Arterial Blood pCO2 48.3 H (Temp correct) Arterial Blood pO2 86.5 (Temp corrected) Arterial Blood HCO3 24.4 Arterial Blood Base Excess -1.9 Arterial Blood 94.9 L Oxygen Saturation Miller Test ACCEPTAB Arterial Blood Gas Right Radial Puncture Site Arterial 0.3 Blood Carboxyhemoglobin Arterial Blood Methemoglobin 0 Blood Gas A-a O2 215.7 H Differential Oxyhemoglobin Percent 94.6 Blood Gas Temperature 37.0 Blood Gas Respiration Rate 18.0 Blood Gas Actual 18 Respiration Rate Blood Gas Modality VENT - AC FiO2 50.0 Blood Gas Tidal Volume 500.0 Blood Gas Low PEEP Setting 5.0 Blood Gas Notified Whom TM Blood Gas Notified Time 08/28/2018 9:59:08 AM MITCHEL DESOUZA Aug 28, 2018 11:29
[2018-08-28] MEDS: METHYLPREDNISOLONE 40 MG INJ IV SCH ×2 (11:31→17:32)
[2018-08-28] MEDS: FENTAnyl 1,000 MCG in DEXTROSE 5% 80 ML IV SCH (11:44)
--- NOTE | 2018-08-28 12:49 | PN ---
Date/Time of Note Date/Time of Note DATE: 08/28/18 TIME: 12:38 Assessment/Plan VTE Prophylaxis Risk score (from Ns)>0 risk: 11 SCD applied (from Ns): Yes Pharmacological prophylaxis: LMWH Lines/Catheters IV C[facility]ter Type [facility]from [facility] Central Line Central line still needed: Yes Urinary Cath still in place: Yes Reason Cath still needed: urinary retention Assessment/Plan Hospital Course Patient is continues on ventilatory support and propofol patient gets agitated during sedation vacation most likely due to pain, in the process of getting started on fentanyl drip. Patient is on Levophed drip for blood pressure support dopamine was stopped overnight. Good urine output Via Sellers catheter. Minimal amount of drainage through chest tube. Continue ICU care. Assessment/Plan -Sepsis with shock, continue broad-spectrum antibiotics, IV fluids, pressors, ICU care. Dr. Sutton is following in infection disease consultation. -Status post cardiac arrest. Dr. Hernández is following in cardiology consultation. -Left-sided pneumothorax, status post left side chest tube placement. -Acute respiratory failure, continue ventilatory support bronchodilators. Dr. Molina is following in pulmonology consultation. -Pneumoperitoneum most likely due to cardiac arrest. Dr. Rivas is following in general surgery consultation. -Left lower lobe pneumonia -Severe emphysema -JEREMÍAS with possible chronic kidney disease. Dr Arvizu is following in nephrology consultation. Further recommendations based on clinical course. Plan of care discussed with Dr. Juarez. Result Diagram: 08/28/18 0340 08/28/18 0340 Results 24hrs Laboratory Tests Test 08/27/18 14:03 08/28/18 03:40 08/28/18 09:11 Troponin I 0.311 *H White Blood Count 11.3 #H Red Blood Count 3.71 L Hemoglobin 10.5 L Hematocrit 32.9 L Mean Corpuscular Volume 88.7 Mean Corpuscular Hemoglobin 28.3 L Mean Corpuscular 31.9 L Hemoglobin Concent Red Cell Distribution Width 16.0 H Platelet Count 128 L Mean Platelet Volume 10.7 H Immature Granulocytes % 0.400 Neutrophils % 73.6 Lymphocytes % 15.9 Monocytes % 9.6 Eosinophils % 0.1 Basophils % 0.4 Nucleated Red Blood Cells % 0.0 Immature Granulocytes # 0.040 H Neutrophils # 8.3 H Lymphocytes # 1.8 Monocytes # 1.1 H Eosinophils # 0.0 Basophils # 0.0 Nucleated Red Blood Cells # 0.0 Sodium Level 142 Potassium Level 4.5 Chloride Level 105 Carbon Dioxide Level 26 Anion Gap 11 Blood Urea Nitrogen 34 H Creatinine 1.51 H Est Glomerular Filtrat 46 L Rate mL/min Glucose Level 94 # Lactic Acid Level 1.4 Calcium Level 8.6 Phosphorus Level 3.8 Magnesium Level 2.3 Blood Gas Specimen Source Blood arterial Arterial Blood Date Drawn 08/28/2018 9:44:19 AM Arterial Blood pH 7.322 L (Temp corrected) Arterial Blood pCO2 48.3 H (Temp correct) Arterial Blood pO2 86.5 (Temp corrected) Arterial Blood HCO3 24.4 Arterial Blood Base Excess -1.9 Arterial Blood 94.9 L Oxygen Saturation Miller Test ACCEPTAB Arterial Blood Gas Right Radial Puncture Site Arterial 0.3 Blood Carboxyhemoglobin Arterial Blood Methemoglobin 0 Blood Gas A-a O2 215.7 H Differential Oxyhemoglobin Percent 94.6 Blood Gas Temperature 37.0 Blood Gas Respiration Rate 18.0 Blood Gas Actual 18 Respiration Rate Blood Gas Modality VENT - AC FiO2 50.0 Blood Gas Tidal Volume 500.0 Blood Gas Low PEEP Setting 5.0 Blood Gas Notified Whom TM Blood Gas Notified Time 08/28/2018 9:59:08 AM Exam/Review of Systems Vital Signs Vitals Vital Signs Date Temp Pulse Resp B/P (MAP) Pulse Ox O2 O2 Flow FiO2 Time Delivery Rate 08/28/18 50 12:13 08/28/18 77 26 96/71 (79) 98 10:30 08/28/18 Mechanical 10:00 Ventilator 08/28/18 98.5 08:00 08/26/18 15 18:34 Intake and Output 08/27/18 08/27/18 08/28/18 1515:00 23:00 07:00 IntakeIntake Total 1366.876 ml 1202.313 ml 1128.625 ml OutputOutput Total 640 ml 700 ml 420 ml BalanceBalance 726.876 ml 502.313 ml 708.625 ml Exam Constitutional: frail, other (Sedated on propofol) Head: normocephalic Eyes: other (Right eye blind, left eye PERRLA) Neck: supple Respiratory: diminished breath sounds, other (Left chest tube) Cardiovascular: regular rate and rhythm Gastrointestinal: soft, other (hypoactive bowel sounds) Genitourinary - Male: other (Sellers catheter) Musculoskeletal: nl extremities to inspection Extremities: normal pulses Neurological: other (sedated) Medications Medications Current Medications Sodium Chloride 1,000 ml @ 100 mls/hr Q10H IV Last administered on 08/28/18at 04:42; Admin Dose 100 MLS/HR; Start 08/26/18 at 23:03 Ondansetron HCl (Zofran Inj) 4 mg Q6H PRN IV NAUSEA AND/OR VOMITING; Start 08/26/18 at 23:30 Acetaminophen (Tylenol Supp) 650 mg Q4H PRN [place] PAIN LEVEL 1-3 OR FEVER; Start 08/26/18 at 23:30 Morphine Sulfate (morphine) 2 mg Q4H PRN IV PAIN LEVEL 7-10; Start 08/26/18 at 23:30 Famotidine (Pepcid Iv) 20 mg Q12 IV Last administered on 08/28/18at 08:45; Admin Dose 20 MG; Start 08/27/18 at 09:00 Enoxaparin Sodium (Lovenox) 30 mg DAILY SC ; Start 08/27/18 at 09:00 Piperacillin Sod/ Tazobactam Sod 100 ml @ 200 mls/hr Q6 IVPB Last administered on 08/28/18at 11:19; Admin Dose 200 MLS/HR; Start 08/27/18 at 00:00 Norepinephrine 250 ml @ 1.875 mls/ hr TITRATE IV Last administered on 08/27/18at 09:48; Admin Dose 37.5 MLS/HR; Start 08/27/18 at 00:30 Dopamine HCl/ Dextrose 250 ml @ 5.625 mls/ hr TITRATE IV Last administered on 08/27/18at 18:00; Admin Dose 16.875 MLS/HR; Start 08/27/18 at 02:00 Propofol 100 ml @ 1.875 mls/ hr Q12H IV Last administered on 08/28/18at 04:42; Admin Dose 15 MLS/HR; Start 08/27/18 at 06:30 Vancomycin HCl (Vanco Iv Per Pharmacy) VANCOMYCIN PER PHARMACY PER PROTOCOL XX ; Start 08/27/18 at 14:00 Vancomycin HCl 250 ml @ 125 mls/hr Q24H IVPB Last administered on 08/27/18at 17:24; Admin Dose 125 MLS/HR; Start 08/27/18 at 17:00 Ipratropium [place] (Atrovent Hfa) 4 puff Q6H RESP THERAPY INH ; Start 08/28/18 at 10:00 Albuterol (Proventil 0.083% (Neb)) 2.5 mg Q6HWA RESP THERAPY HHN ; Start 08/28/18 at 14:00 Methylprednisolone Sodium Succinate (Solu-Medrol) 40 mg Q6 IV Last administered on 08/28/18at 11:31; Admin Dose 40 MG; Start 08/28/18 at 12:00 Fentanyl 1000 mcg/ Dextrose 100 ml @ 2.5 mls/hr TITRATE IV Last administered on 08/28/18at 11:44; Admin Dose 2.5 MLS/HR; Start 08/28/18 at 12:30 Aspirin (Aspirin) 81 mg DAILY PO ; Start 08/29/18 at 09:00 HERMES HARRIS Aug 28, 2018 12:48
[2018-08-28] MEDS ORDERED: ALBUTEROL 0.083% (NEB) 2.5 MG/3 ML AMP HHN SCH (14:00)
--- NOTE | 2018-08-28 14:38 | CONS ---
Assessment/Plan Assessment/Plan Hospital Course Patient is intubated sedated on low-dose levo fed drip is in no distress and afebrile WBC 11.3 H&H 10.5 and 32.9 platelets 128 BUN 34 creatinine 1.51 Microbiology: Blood cultures negative MRSA swab negative urine culture growing staph species Indwelling: Right IJ triple-lumen catheter endotracheal tube NG tube left chest tube, Sellers catheter Antimicrobials vancomycin, Zosyn Physical examination: Well-developed chronically ill-appearing fragile elderly man who is intubated sedated in no distress. Head atraumatic normocephalic sclera nonicteric vehicle mucosa dry neck is supple chest rise symmetrical breath sounds diminished bases. Heart: S1-S2. Abdomen soft bowel sounds present. Extremities cyanotic Assessment: 1. Septic shock 2. Acute hypoxemic respiratory failure with questionable aspiration 3. Pneumoperitoneum of unclear etiology, no perforation per surgical note 4. Urinary tract infection 5. Anemia 6. Non-ST elevation OR 7. Status post cardiac arrest Plan: Patient is doing better, pressors were titrating down, continue antibiotics for now Result Diagram: 08/28/18 0340 08/28/18 0340 Results 24hrs Laboratory Tests Test 08/28/18 03:40 08/28/18 09:11 White Blood Count 11.3 #H Red Blood Count 3.71 L Hemoglobin 10.5 L Hematocrit 32.9 L Mean Corpuscular Volume 88.7 Mean Corpuscular Hemoglobin 28.3 L Mean Corpuscular Hemoglobin Concent 31.9 L Red Cell Distribution Width 16.0 H Platelet Count 128 L Mean Platelet Volume 10.7 H Immature Granulocytes % 0.400 Neutrophils % 73.6 Lymphocytes % 15.9 Monocytes % 9.6 Eosinophils % 0.1 Basophils % 0.4 Nucleated Red Blood Cells % 0.0 Immature Granulocytes # 0.040 H Neutrophils # 8.3 H Lymphocytes # 1.8 Monocytes # 1.1 H Eosinophils # 0.0 Basophils # 0.0 Nucleated Red Blood Cells # 0.0 Sodium Level 142 Potassium Level 4.5 Chloride Level 105 Carbon Dioxide Level 26 Anion Gap 11 Blood Urea Nitrogen 34 H Creatinine 1.51 H Est Glomerular Filtrat Rate mL/min 46 L Glucose Level 94 # Lactic Acid Level 1.4 Calcium Level 8.6 Phosphorus Level 3.8 Magnesium Level 2.3 Blood Gas Specimen Source Blood arterial Arterial Blood Date Drawn 08/28/2018 9:44:19 AM Arterial Blood pH (Temp corrected) 7.322 L Arterial Blood pCO2 (Temp correct) 48.3 H Arterial Blood pO2 (Temp corrected) 86.5 Arterial Blood HCO3 24.4 Arterial Blood Base Excess -1.9 Arterial Blood Oxygen Saturation 94.9 L Miller Test ACCEPTAB Arterial Blood Gas Puncture Site Right Radial Arterial Blood Carboxyhemoglobin 0.3 Arterial Blood Methemoglobin 0 Blood Gas A-a O2 Differential 215.7 H Oxyhemoglobin Percent 94.6 Blood Gas Temperature 37.0 Blood Gas Respiration Rate 18.0 Blood Gas Actual Respiration Rate 18 Blood Gas Modality VENT - AC FiO2 50.0 Blood Gas Tidal Volume 500.0 Blood Gas Low PEEP Setting 5.0 Blood Gas Notified Whom TM Blood Gas Notified Time 08/28/2018 9:59:08 AM Consultation Date/Type/Reason Admit Date/Time Aug 27, 2018 at 00:03 Initial Consult Date 08/27/18 Type of Consult ID Requesting Provider: VIVIANA NOLAN MD Exam/Review of Systems Vital Signs Vitals Vital Signs Date Temp Pulse Resp B/P (MAP) Pulse Ox O2 O2 Flow FiO2 Time Delivery Rate 08/28/18 64 26 104/76 93 13:45 (85) 08/28/18 Mechanical 13:00 Ventilator 08/28/18 40 12:20 08/28/18 98.3 12:00 08/26/18 15 18:34 Intake and Output 08/27/18 08/27/18 08/28/18 1515:00 23:00 07:00 IntakeIntake Total 1366.876 ml 1202.313 ml 1128.625 ml OutputOutput Total 640 ml 700 ml 420 ml BalanceBalance 726.876 ml 502.313 ml 708.625 ml Medications Medications Current Medications Sodium Chloride 1,000 ml @ 100 mls/hr Q10H IV Last administered on 08/28/18at 04:42; Admin Dose 100 MLS/HR; Start 08/26/18 at 23:03 Ondansetron HCl (Zofran Inj) 4 mg Q6H PRN IV NAUSEA AND/OR VOMITING; Start 08/26/18 at 23:30 Acetaminophen (Tylenol Supp) 650 mg Q4H PRN [place] PAIN LEVEL 1-3 OR FEVER; Start 08/26/18 at 23:30 Morphine Sulfate (morphine) 2 mg Q4H PRN IV PAIN LEVEL 7-10; Start 08/26/18 at 23:30 Famotidine (Pepcid Iv) 20 mg Q12 IV Last administered on 08/28/18at 08:45; Admin Dose 20 MG; Start 08/27/18 at 09:00 Enoxaparin Sodium (Lovenox) 30 mg DAILY SC ; Start 08/27/18 at 09:00 Piperacillin Sod/ Tazobactam Sod 100 ml @ 200 mls/hr Q6 IVPB Last administered on 08/28/18at 11:19; Admin Dose 200 MLS/HR; Start 08/27/18 at 00:00 Norepinephrine 250 ml @ 1.875 mls/ hr TITRATE IV Last administered on 08/27/18 09:48; Admin Dose 37.5 MLS/HR; Start 08/27/18 at 00:30 Dopamine HCl/ Dextrose 250 ml @ 5.625 mls/ hr TITRATE IV Last administered on 08/27/18at 18:00; Admin Dose 16.875 MLS/HR; Start 08/27/18 at 02:00 Propofol 100 ml @ 1.875 mls/ hr Q12H IV Last administered on 08/28/18 12:57; Admin Dose 11.25 MLS/HR; Start 08/27/18 at 06:30 Vancomycin HCl (Vanco Iv Per Pharmacy) VANCOMYCIN PER PHARMACY PER PROTOCOL XX ; Start 08/27/18 at 14:00 Vancomycin HCl 250 ml @ 125 mls/hr Q24H IVPB Last administered on 08/27/18 17:24; Admin Dose 125 MLS/HR; Start 08/27/18 at 17:00 Ipratropium [place] (Atrovent Hfa) 4 puff Q6H RESP THERAPY INH ; Start 08/28/18 at 10:00 Albuterol (Proventil 0.083% (Neb)) 2.5 mg Q6HWA RESP THERAPY HHN ; Start 08/28/18 at 14:00 Methylprednisolone Sodium Succinate (Solu-Medrol) 40 mg Q6 IV Last administered on 08/28/18 11:31; Admin Dose 40 MG; Start 08/28/18 at 12:00 Fentanyl 1000 mcg/ Dextrose 100 ml @ 2.5 mls/hr TITRATE IV Last administered on 1/23/19at 11:44; Admin Dose 2.5 MLS/HR; Start 08/28/18 at 12:30 Aspirin (Aspirin) 81 mg DAILY PO ; Start 08/29/18 at 09:00 Date/Time of Note Date/Time of Note DATE: 08/28/18 TIME: 14:38 AALIYAH MEZA NP Aug 28, 2018 14:38
--- NOTE | 2018-08-28 16:08 | RADRPT ---
Echocardiogram Report Patient Name: AFSHIN PALMA Gender: Male Date: 1950 Study Date: 27-Aug-2018 Rig Hand: Bobbi Gonzalez RDCS Location: 106 Ref. Physician: JIE ALEJO Quality: Technically Difficult Study Procedures: Transthoracic echocardiogram with complete 2D, M-Mode, and doppler examination. Indications: Chest Pain. 2D/M Mode Doppler Measurement Value Normal Ranges Measurement Value Normal Ranges LVIDd 2D 3.3 3.5 - 5.6 cm AV Peak Joshua 1.4 m/sec LVIDs 2D 1.8 2.1 - 4.1 cm AV Peak PG 8.0 mmHg FS 2D 47.1 % LVOT Peak Joshua 0.8 m/sec LVPWd 2D 1.0 0.6 - 1.1 cm LVOT Peak PG 2.0 mmHg IVSd 2D 1.1 0.6 - 1.1 cm MV E Peak Joshua 0.3 m/sec IVS/LVPW 2D 1.1 MV A Peak Joshua 0.7 m/sec AoR Diam 2D 2.9 2.0 - 3.7 cm MV E/A 0.5 LA/Ao 2D 1 0 - 1 MV Decel Time 215 msec EDV 2D 36.9 cm3 MV E/A 0.5 ESV 2D 5.4 cm3 TR Peak Joshua 3.0 m/sec LA Dimen 2D 2.7 2.3 - 4.0 cm TR Peak PG 36.0 mmHg RVSP 44.0 mmHg RA Pressure 8.0 Findings Left Ventricle: Normal left ventricular systolic function. Normal left ventricular cavity size. Mild concentric left ventricular hypertrophy. Ejection fraction is visually estimated at 60 %. Right Ventricle: Normal right ventricular size. Normal right ventricular systolic function. Left Atrium: The left atrium is normal in size. Right Atrium: The right atrium is normal in size. Mitral Valve: Normal appearance and function of the mitral valve with trace physiologic regurgitation. Aortic Valve: No significant aortic stenosis or insufficiency. Aortic cusps appear mildly calcified. Tricuspid Valve: Normal appearance of the tricuspid valve. Estimated peak PA systolic pressure 44 mmHg. There is mild tricuspid regurgitation. Pulmonic Valve: Normal pulmonic valve appearance. Pericardium: Normal pericardium with no significant pericardial effusion. Aorta: Normal aortic root. IVC: Inferior vena cava without respiratory collapse, however, patient on ventilator. Conclusions Normal left ventricular systolic function. Normal left ventricular cavity size. Mild concentric left ventricular hypertrophy. Ejection fraction is visually estimated at 60 %. Normal appearance and function of the mitral valve with trace physiologic regurgitation. Normal appearance of the tricuspid valve. Estimated peak PA systolic pressure 44 mmHg. There is mild tricuspid regurgitation. Electronically Signed By: Vivek Hernández 28-Aug-2018 16:08:25 -0800 Patient Name: AFSHIN PALMA Study Date: 27-Aug-2018 [id number]
[2018-08-28] MEDS: VANCOMYCIN 1 GM 250 ML IVPB SCH (17:04)
[2018-08-28] MEDS: IPRATROPIUM (HFA) 12.9 GM INHALER INH SCH (19:33)
--- NOTE | 2018-08-28 20:30 | PN ---
Date/Time of Note Date/Time of Note DATE: 08/28/18 TIME: 20:28 Assessment/Plan Lines/Catheters IV Catheter Type (from Nrs): Central Line Sellers in Place (from Nrs): Yes Assessment/Plan Assessment/Plan Hospital day #1 for respiratory arrest Abdominal series day shows contrast in the colon with decreased pneumoperitoneum. No acute surgical issues May start tube feeds at any time Reconsult as needed Subjective 24 Hr Interval Summary Subjective hx not possible: other (Intubated and sedated. Responding minimally to pain) Exam/Review of Systems Vital Signs Vitals Vital Signs Date Temp Pulse Resp B/P (MAP) Pulse Ox O2 O2 Flow FiO2 Time Delivery Rate 08/28/18 62 23 95/66 (76) 96 Mechanical 19:00 Ventilator 08/28/18 40 17:00 08/28/18 98.4 16:00 08/26/18 15 18:34 Intake and Output 08/27/18 08/27/18 08/28/18 1515:00 23:00 07:00 IntakeIntake Total 1366.876 ml 1202.313 ml 1128.625 ml OutputOutput Total 640 ml 700 ml 420 ml BalanceBalance 726.876 ml 502.313 ml 708.625 ml Exam Respiratory: other (Decreased breath sounds bilaterally) Cardiovascular: regular rate and rhythm Gastrointestinal: other (Soft, decreased distention) Results Free Text/Dictation Patient: AFSHIN PALMA : 1950 Age: 68 Sex: M MR #: [id number] DOS: 08/28/18 0700 Ordering MD: ANEESH COLE MD Location: ICU Room/Bed: [facility] PROCEDURE: XR Abdomen. CLINICAL INDICATION: Possible viscous perforation TECHNIQUE: AP abdomen x-ray. COMPARISON: ABDOMEN 08/26/2018. FINDINGS: There is pulmonary hyperinflation and blunting of the right costophrenic sulcus. Chest tube positioned adjacent to the left hilum. Enteric tube projects below the diaphragm. There is residual oral contrast within the proximal large bowel. Bowel gas pattern is nonspecific. Generalized lucency throughout the abdomen is consistent with pneumoperitoneum. Both kidneys appear hyperdense. IMPRESSION: 1. Generalized lucency throughout the abdomen consistent with pneumoperitoneum, diminished compared with previous radiograph of 08/26/2018. 2. Hyperdense appearance of both kidneys likely indicates retained contrast within the renal parenchyma, correlate for renal insufficiency or contrast nephropathy. 3. Left chest tube in place. Pulmonary hyperinflation. RPTAT: [facility] Physician Ariella Date Time Electronically viewed and signed by Physician Ariella on 08/28/2018 07:58 xB/ CC: ANEESH COLE MD [id number] Result Diagram: 08/28/[id number] ANEESH COLE MD Aug 28, 2018 20:30
[2018-08-29] VITALS (64 sets, daily range): BP systolic 100–164; BP diastolic 65–119; PULSE 38–119; RESP 0–25
[2018-08-29] MEDS ORDERED: ALBUTEROL HFA 8 GM INHALER ONE (00:27)
[2018-08-29] MEDS: PIPER-TAZO 3.375 GM IV (PMX) 100 ML IVPB SCH ×3 (00:35→12:07)
[2018-08-29] MEDS: ALBUTEROL HFA 8 GM INHALER INH SCH ×4 (01:34→20:00)
[2018-08-29] MEDS: IPRATROPIUM (HFA) 12.9 GM INHALER INH SCH ×4 (01:34→20:00)
[2018-08-29] MEDS: SOD CHLORIDE 0.9% 1,000 ML IV SCH (05:22)
[2018-08-29] MEDS: METHYLPREDNISOLONE 40 MG INJ IV SCH ×5 (05:22→23:43)
--- NOTE | 2018-08-29 08:19 | PN ---
DATE: 08/29/2018 SUBJECTIVE: The patient is critically ill on full ventilatory support. The patient's urinary output has been adequate. There have been no reports of any hemoptysis, hematemesis or hematochezia. The patient has been weaned off pressor support. OBJECTIVE: VITAL SIGNS: Blood pressure is 100/71, respirations 18, pulse 58, temperature 98.6. HEENT: Head is normocephalic. NECK: Supple. HEART: Regular rate. LUNGS: Show diminished breath sounds at the base. ABDOMEN: Soft, nontender to palpation without rebound or guarding. EXTREMITIES: Negative for clubbing, cyanosis, no edema. DERMATOLOGIC: No rashes. MUSCULOSKELETAL: No joint effusion. NEUROLOGIC: No change in exam. MEDICATIONS: Reviewed. LABORATORY DATA: Shows sodium 148, potassium 4.4, BUN 33, creatinine 1.29. White count 3.0, hemoglo bin 10.1, platelet count is 87. IMAGING STUDIES: The patient's imaging studies were reviewed. ASSESSMENT AND PLAN: 1. Nonoliguric acute kidney injury with unknown baseline creatinine, possible chronic kidney disease . Etiology of acute kidney injury is secondary to hemodynamics, possible tubular injury, acute tubular necrosis due to shock, sepsis. The patient's renal function has been fluctuating, but overall stable . Plan, at this point, is to continue current treatment plans, supportive care, renally dose all med icines. We will change IV fluids as the patient is currently off pressor support. Continue IV antib iotics, treat underlying sepsis. Continue to monitor renal function closely. 2. Hypernatremia. The patient has free water deficit approximately 2 liters. We will start the pat ient on hypertonic fluids, monitor sodium levels closely. 3. Anemia. Continue to monitor hemoglobin and hematocrit levels. 4. Mineral bone disorder. Continue to monitor calcium and phosphorus levels. 5. Chronic kidney disease. The patient's CT scan shows increased echogenicity of the kidneys consis tent with chronic kidney disease. The patient is currently in acute kidney injury as stated above. Continue to monitor. 6. Lactic acidosis secondary to septic shock, improved. Continue to monitor. 7. Ventilator dependent respiratory failure. Vent settings and ABG was reviewed. Continue to monit or. 8. Sepsis, status post shock secondary to pneumonia. Continue current medical management. Continue antibiotic therapy. We will deescalate IV fluids. 9. Pneumothorax status post chest tube placement. 10. Pneumoperitoneum, likely due to cardiac arrest. Continue to monitor. 11. Status post cardiac arrest. 12. Encephalopathy, etiology is toxic metabolic. Please note, I spent over 30 minutes of critical care time with this patient. Dictated By: JOE BLACK DO NR/NTS Conf#: [id number] DID#: [id number] CC: WENDY LOVE MD; VIVIANA NOLAN MD; KHUSHI PATTON MD;*EndCC*
[2018-08-29] MEDS: ASPIRIN 81 MG TAB PO SCH (08:31)
[2018-08-29] MEDS: FAMOTIDINE 20 MG INJ IV SCH (08:31)
[2018-08-29] MEDS: SOD CHLORIDE 0.45% 1,000 ML IV SCH ×2 (08:33→22:03)
--- NOTE | 2018-08-29 08:42 | CONS ---
Assessment/Plan Assessment/Plan Assessment/Plan Ventilator setting; AC of 18, tidal volume 500, PEEP of 5, 65% FiO2. Chest x-ray is again showing severe emphysematous changes without any acute infiltrates. Left-sided chest tube in place. There is no pneumothorax. Endotracheal tube is at an adequate level. Patient is currently on propofol 20 mics per kilogram per minute, fentanyl drip 40 mics per hour. Assessment and recommendations; 1. Patient admitted with hypoxemic and hypercapnic respiratory failure due to underlying severe bullous emphysema, status post CPR in ER requiring intubation. 2. Persistent hypercapnia indicative of advanced end-stage COPD. 3. Placement of left chest tube for pneumothorax. 4. Pneumoperitoneum, etiology is unclear. Possibly related to CPR. However clinically there is no sign of any acute abdomen. 5. Anemia and severe thrombocytopenia. 6. Acute renal injury with continually improving renal function. Possibly some element of baseline renal insufficiency. 7. Possibly right lower lobe pneumonia. Continue current supportive care. Obtain ABG. Once ABG is obtained I will make further recommendations. Prognosis appears guarded. 35 minutes of critical care time was spent evaluating the patient. Result Diagram: 08/29/18 0435 08/29/18 0424 Results 24hrs Laboratory Tests Test 08/28/18 09:11 08/28/18 14:00 08/29/18 04:24 08/29/18 04:35 Blood Gas Blood arterial Specimen Source Arterial Blood 08/28/2018 9:44: Date Drawn 19 AM Arterial Blood 7.322 L pH (Temp corrected) Arterial Blood 48.3 H pCO2 (Temp correct) Arterial Blood 86.5 pO2 (Temp corrected) Arterial Blood 24.4 HCO3 Arterial Blood -1.9 Base Excess Arterial Blood 94.9 L Oxygen Saturatio n Miller Test ACCEPTAB Arterial Blood Right Radial Gas Puncture Site Arterial 0.3 Blood Carboxyhem oglobin Arterial Blood 0 Methemoglobin Blood Gas A-a O2 215.7 H Differential Oxyhemoglobin 94.6 Percent Blood Gas 37.0 Temperature Blood Gas 18.0 Respiration Rate Blood Gas Actual 18 Respiration Rate Blood Gas VENT - AC Modality FiO2 50.0 Blood Gas Tidal 500.0 Volume Blood Gas Low 5.0 PEEP Setting Blood Gas TM Notified Whom Blood Gas 08/28/2018 9:59: Notified Time 08 AM Urine Random 37.61 Creatinine Urine Random 30 Sodium Urine Total 30.0 H Protein Sodium Level 148 H Potassium Level 4.4 Chloride Level 110 Carbon Dioxide 26 Level Anion Gap 12 Blood Urea 33 H Nitrogen Creatinine 1.29 H Est Glomerular 56 L Filtrat Rate mL/min Glucose Level 120 Calcium Level 8.8 Phosphorus Level 4.6 Magnesium Level 2.4 White Blood 3.0 #L Count Red Blood Count 3.67 L Hemoglobin 10.1 L Hematocrit 33.4 L Mean Corpuscular 91.0 Volume Mean Corpuscular 27.5 L Hemoglobin Mean Corpuscular 30.2 L Hemoglobin Alisson nt Red Cell 15.9 H Distribution Width Platelet Count 87 #L Mean Platelet 10.5 H Volume Immature 0.300 Granulocytes % Neutrophils % 85.7 H Lymphocytes % 12.7 L Monocytes % 1.3 Eosinophils % 0.0 Basophils % 0.0 Nucleated Red 0.0 Blood Cells % Immature 0.010 Granulocytes # Neutrophils # 2.6 Lymphocytes # 0.4 L Monocytes # 0.0 L Eosinophils # 0.0 Basophils # 0.0 Nucleated Red 0.0 Blood Cells # Test 08/29/18 04:43 08/29/18 08:17 Troponin I 0.110 Blood Gas Blood arterial Specimen Source Arterial Blood 08/29/2018 8:30: Date Drawn 03 AM Arterial Blood 7.317 L pH (Temp corrected) Arterial Blood 46.3 H pCO2 (Temp correct) Arterial Blood 92.9 pO2 (Temp corrected) Arterial Blood 23.2 HCO3 Arterial Blood -3.1 L Base Excess Arterial Blood 95.9 Oxygen Saturatio n Miller Test ACCEPTAB Arterial Blood Right Radial Gas Puncture Site Arterial 0.2 Blood Carboxyhem oglobin Arterial Blood 0.1 Methemoglobin Blood Gas A-a O2 320.2 H Differential Oxyhemoglobin 95.6 Percent Blood Gas 37.0 Temperature Blood Gas 18.0 Respiration Rate Blood Gas Actual 18 Respiration Rate Blood Gas VENT - AC Modality FiO2 65.0 Blood Gas Tidal 500.0 Volume Blood Gas Low 5.0 PEEP Setting Blood Gas TM Notified Whom Blood Gas 08/29/2018 8:37: Notified Time 33 AM Consultation Date/Type/Reason Admit Date/Time Aug 27, 2018 at 00:03 Initial Consult Date 08/27/18 Type of Consult Pulmonary/critical care Patient is a 68-year-old male who is a retirement resident was sent over to the hospital because of hypothermia and altered mental status. In the emergency room, patient developed cardiac arrest requiring CPR and intubation. In the course of workup the patient also required a chest tube placement on the left side. CT imaging of the abdomen showed pneumoperitoneum with possibly perforated viscus. By the time I saw the patient in ICU, patient is orally intubated and sedated. History was obtained from medical records. Past medical history; essentially unremarkable except for possibly COPD. Medications; reviewed. Patient is currently on dopamine at 6 mics per kilogram per minute, Levophed 20 mics per minute, propofol 25 mics per kilogram per minute. Other medications were also reviewed. Allergies; none. Social history; not available. Family history and occupational history is also not available. Review of system; unable to be obtained. General exam; elderly male, orally intubated, sedated, currently in no distress. Requesting Provider: VIVIANA NOLAN MD 24 HR Interval Summary Free Text/Dictation Patient's condition remains critical. Patient however has remained hemodynamically stable. General exam; elderly male, orally intubated, sedated, currently in no distress. Exam/Review of Systems Vital Signs Vitals Vital Signs Date Temp Pulse Resp B/P (MAP) Pulse Ox O2 O2 Flow FiO2 Time Delivery Rate 08/29/18 65 08:19 08/29/18 98.4 57 18 126/79 Mechanical 08:00 (95) Ventilator 08/29/18 100 07:00 08/26/18 15 18:34 Intake and Output 08/28/18 08/28/18 08/29/18 1515:00 23:00 07:00 IntakeIntake Total 1059.750 ml 1113.125 ml 810.000 ml OutputOutput Total 580 ml 745 ml 720 ml BalanceBalance 479.750 ml 368.125 ml 90.000 ml Exam H EENT exam; supple neck, no JVD. No lymphadenopathy. Midline trachea. No thyromegaly. Tracheostomy in place. Insertion site is clean. Patient is edentulous. Chest exam; diminished breath sounds throughout. S1-S2 audible, no murmurs. Regular rhythm. Left-sided chest tube in place. No air leak in Pleur-evac chamber. Abdomen exam; soft, non-distended, no organomegaly. Bowel sounds audible. Extremity exam; no peripheral edema or clubbing. [employer] exam; patient is sedated. Medications Medications Current Medications Ondansetron HCl (Zofran Inj) 4 mg Q6H PRN IV NAUSEA AND/OR VOMITING; Start 08/26/18 at 23:30 Acetaminophen (Tylenol Supp) 650 mg Q4H PRN DE PAIN LEVEL 1-3 OR FEVER; Start 08/26/18 at 23:30 Morphine Sulfate (morphine) 2 mg Q4H PRN IV PAIN LEVEL 7-10; Start 08/26/18 at 23:30 Famotidine (Pepcid Iv) 20 mg Q12 IV Last administered on 08/28/18at 20:14; Admin Dose 20 MG; Start 08/27/18 at 09:00 Enoxaparin Sodium (Lovenox) 30 mg DAILY SC ; Start 08/27/18 at 09:00 Piperacillin Sod/ Tazobactam Sod 100 ml @ 200 mls/hr Q6 IVPB Last administered on 08/29/18at 05:22; Admin Dose 200 MLS/HR; Start 08/27/18 at 00:00 Norepinephrine 250 ml @ 1.875 mls/ hr TITRATE IV Last administered on 08/27/18at 09:48; Admin Dose 37.5 MLS/HR; Start 08/27/18 at 00:30 Dopamine HCl/ Dextrose 250 ml @ 5.625 mls/ hr TITRATE IV Last administered on 08/27/18at 18:00; Admin Dose 16.875 MLS/HR; Start 08/27/18 at 02:00 Propofol 100 ml @ 1.875 mls/ hr Q12H IV Last administered on 08/28/18at 21:02; Admin Dose 7.5 MLS/HR; Start 08/27/18 at 06:30 Vancomycin HCl (Vanco Iv Per Pharmacy) VANCOMYCIN PER PHARMACY PER PROTOCOL XX ; Start 08/27/18 at 14:00 Vancomycin HCl 250 ml @ 125 mls/hr Q24H IVPB Last administered on 08/28/18at 17:04; Admin Dose 125 MLS/HR; Start 08/27/18 at 17:00 Ipratropium [place] (Atrovent Hfa) 4 puff Q6H RESP THERAPY INH Last administered on 08/29/18at 01:34; Admin Dose 4 PUFF; Start 08/28/18 at 10:00 Methylprednisolone Sodium Succinate (Solu-Medrol) 40 mg Q6 IV Last administered on 08/29/18at 05:22; Admin Dose 40 MG; Start 08/28/18 at 12:00 Fentanyl 1000 mcg/ Dextrose 100 ml @ 2.5 mls/hr TITRATE IV Last administered on 08/28/18at 11:44; Admin Dose 2.5 MLS/HR; Start 08/28/18 at 12:30 Aspirin (Aspirin) 81 mg DAILY PO ; Start 08/29/18 at 09:00 Albuterol (Ventolin Hfa) 4 puff Q6H RESP THERAPY INH Last administered on 08/29/18at 01:34; Admin Dose 4 PUFF; Start 08/29/18 at 02:00 Sodium Chloride 1,000 ml @ 75 mls/hr [id number] IV ; Start 08/29/18 at 08:00 Date/Time of Note Date/Time of Note DATE: 08/29/18 TIME: 08:39 GAMALIEL BASILIO Aug 29, 2018 08:42
[2018-08-29] MEDS: PROPOFOL 100 ML IV SCH (09:45)
[2018-08-29] MEDS: ENOXAPARIN 30 MG/0.3 ML SYG SC SCH (09:52)
--- NOTE | 2018-08-29 11:38 | CONS ---
Assessment/Plan Assessment/Plan Hospital Course (Demo Recall) IMP: 1.Hypotension-on levo. NL EF by echo this admit 2.resp failure s/p intubation 3.cardiac arrest 4.pneumoperitoneum 5.Positive troponin-now trended neg 6.renal failure 7.Leukocytosis 8. anemia 9, Thrombocytopenia Recc: -ICU -wean pressors as tolerated -start asa -Continue abx's and f/u cx data -ongoing surgical eval Consultation Date/Type/Reason Admit Date/Time Aug 27, 2018 at 00:03 Initial Consult Date 08/27/18 Type of Consult Cardiology Reason for Consultation hypotension Requesting Provider: VIVIANA NOLAN MD Date/Time of Note DATE: 08/29/18 TIME: 11:34 Exam/Review of Systems Vital Signs Vitals Vital Signs Date Temp Pulse Resp B/P (MAP) Pulse Ox O2 O2 Flow FiO2 Time Delivery Rate 08/29/18 65 08:19 08/29/18 52 08:00 08/29/18 98.4 18 126/79 Mechanical 08:00 (95) Ventilator 08/29/18 100 07:00 08/26/18 15 18:34 Intake and Output 08/28/18 08/28/18 08/29/18 1515:00 23:00 07:00 IntakeIntake Total 1059.750 ml 1113.125 ml 921.500 ml OutputOutput Total 580 ml 745 ml 720 ml BalanceBalance 479.750 ml 368.125 ml 201.500 ml Exam Exam Review of Systems: CONSTITUTIONAL: No fevers, chills. PULMONARY: No sob CARDIOVASCULAR: No chest pain/palpitations GASTROINTESTINAL: No nausea/vomiting. GENITOURINARY: No hematuria/dysuria. MUSCULOSKELETAL: No myagias/arthalgias. PSYCHIATRIC: The patient denies depression. NEUROLOGIC: No weakness Constitutional: alert Psych: no complaints Head: normocephalic ENMT: mucosa pink and moist Neck: supple, jvd (9 cm water) Respiratory: diminished breath sounds Cardiovascular: regular rate and rhythm Gastrointestinal: soft, non-tender Musculoskeletal: muscle tone (normal) Extremities: edema (none) Neurological: other (No focal deficits) Labs Result Diagram: 08/29/18 0435 08/29/18 0424 Results 24hrs Laboratory Tests Test 08/28/18 14:00 08/29/18 04:24 08/29/18 04:35 08/29/18 04:43 Urine Random 37.61 Creatinine Urine Random 30 Sodium Urine Total 30.0 H Protein Sodium Level 148 H Potassium Level 4.4 Chloride Level 110 Carbon Dioxide 26 Level Anion Gap 12 Blood Urea 33 H Nitrogen Creatinine 1.29 H Est Glomerular 56 L Filtrat Rate mL/min Glucose Level 120 Calcium Level 8.8 Phosphorus Level 4.6 Magnesium Level 2.4 White Blood Count 3.0 #L Red Blood Count 3.67 L Hemoglobin 10.1 L Hematocrit 33.4 L Mean Corpuscular 91.0 Volume Mean Corpuscular 27.5 L Hemoglobin Mean Corpuscular 30.2 L Hemoglobin Concen t Red Cell 15.9 H Distribution Width Platelet Count 87 #L Mean Platelet 10.5 H Volume Immature 0.300 Granulocytes % Neutrophils % 85.7 H Lymphocytes % 12.7 L Monocytes % 1.3 Eosinophils % 0.0 Basophils % 0.0 Nucleated Red 0.0 Blood Cells % Immature 0.010 Granulocytes # Neutrophils # 2.6 Lymphocytes # 0.4 L Monocytes # 0.0 L Eosinophils # 0.0 Basophils # 0.0 Nucleated Red 0.0 Blood Cells # Troponin I 0.110 Test 08/29/18 08:17 Blood Gas Blood arterial Specimen Source Arterial Blood 08/29/2018 8:30:0 Date Drawn 3 AM Arterial Blood pH 7.317 L (Temp corrected) Arterial Blood 46.3 H pCO2 (Temp correct) Arterial Blood 92.9 pO2 (Temp corrected) Arterial Blood 23.2 HCO3 Arterial Blood -3.1 L Base Excess Arterial Blood 95.9 Oxygen Saturation Miller Test ACCEPTAB Arterial Blood Right Radial Gas Puncture Site Arterial 0.2 Blood Carboxyhemo globin Arterial Blood 0.1 Methemoglobin Blood Gas A-a O2 320.2 H Differential Oxyhemoglobin 95.6 Percent Blood Gas 37.0 Temperature Blood Gas 18.0 Respiration Rate Blood Gas Actual 18 Respiration Rate Blood Gas VENT - AC Modality FiO2 65.0 Blood Gas Tidal 500.0 Volume Blood Gas Low 5.0 PEEP Setting Blood Gas TM Notified Whom Blood Gas 08/29/2018 8:37:3 Notified Time 3 AM MITCHEL DESOUZA Aug 29, 2018 11:38
[2018-08-29] MEDS: FENTAnyl 1,000 MCG in DEXTROSE 5% 80 ML IV SCH (11:42)
--- NOTE | 2018-08-29 12:52 | PN ---
Date/Time of Note Date/Time of Note DATE: 08/29/18 TIME: 12:46 Assessment/Plan VTE Prophylaxis Risk score (from [facility] [place])>0 risk: 10 SCD applied (from Ns): Yes Pharmacological prophylaxis: LMWH Lines/Catheters IV Catheter Type (from [facility] Central Line Central line still needed: Yes Urinary Cath still in place: Yes Reason Cath still needed: urinary retention Assessment/Plan Hospital Course Patient is restarted on dopamine drip due to bradycardia today in the morning, patient is "off levo fed, continued on propofol and fentanyl, a ventilatory support. Patient follow commands during the sedation vacation. Start tube feeding. Assessment/Plan -Sepsis with shock, continue broad-spectrum antibiotics, IV fluids, pressors, ICU care. Dr. Sutton is following in infection disease consultation. -Status post cardiac arrest. Dr. Hernández is following in cardiology consultation. -Left-sided pneumothorax, status post left side chest tube placement. -Acute respiratory failure, continue ventilatory support bronchodilators. Dr. Molina is following in pulmonology consultation. -Pneumoperitoneum most likely due to cardiac arrest. Dr. Rivas is following in general surgery consultation. -Left lower lobe pneumonia -Severe emphysema -JEREMÍAS with possible chronic kidney disease. Dr Arvizu is following in nephrology consultation. Further recommendations based on clinical course. Plan of care discussed with Dr. Juarez. Result Diagram: 08/29/18 0435 08/29/18 0424 Results 24hrs Laboratory Tests Test 08/28/18 14:00 08/29/18 04:24 08/29/18 04:35 08/29/18 04:43 Urine Random 37.61 Creatinine Urine Random 30 Sodium Urine Total 30.0 H Protein Sodium Level 148 H Potassium Level 4.4 Chloride Level 110 Carbon Dioxide 26 Level Anion Gap 12 Blood Urea 33 H Nitrogen Creatinine 1.29 H Est Glomerular 56 L Filtrat Rate mL/min Glucose Level 120 Calcium Level 8.8 Phosphorus Level 4.6 Magnesium Level 2.4 White Blood Count 3.0 #L Red Blood Count 3.67 L Hemoglobin 10.1 L Hematocrit 33.4 L Mean Corpuscular 91.0 Volume Mean Corpuscular 27.5 L Hemoglobin Mean Corpuscular 30.2 L Hemoglobin Concen t Red Cell 15.9 H Distribution Width Platelet Count 87 #L Mean Platelet 10.5 H Volume Immature 0.300 Granulocytes % Neutrophils % 85.7 H Lymphocytes % 12.7 L Monocytes % 1.3 Eosinophils % 0.0 Basophils % 0.0 Nucleated Red 0.0 Blood Cells % Immature 0.010 Granulocytes # Neutrophils # 2.6 Lymphocytes # 0.4 L Monocytes # 0.0 L Eosinophils # 0.0 Basophils # 0.0 Nucleated Red 0.0 Blood Cells # Troponin I 0.110 Test 08/29/18 08:17 Blood Gas Blood arterial Specimen Source Arterial Blood 08/29/2018 8:30:0 Date Drawn 3 AM Arterial Blood pH 7.317 L (Temp corrected) Arterial Blood 46.3 H pCO2 (Temp correct) Arterial Blood 92.9 pO2 (Temp corrected) Arterial Blood 23.2 HCO3 Arterial Blood -3.1 L Base Excess Arterial Blood 95.9 Oxygen Saturation Miller Test ACCEPTAB Arterial Blood Right Radial Gas Puncture Site Arterial 0.2 Blood Carboxyhemo globin Arterial Blood 0.1 Methemoglobin Blood Gas A-a O2 320.2 H Differential Oxyhemoglobin 95.6 Percent Blood Gas 37.0 Temperature Blood Gas 18.0 Respiration Rate Blood Gas Actual 18 Respiration Rate Blood Gas VENT - AC Modality FiO2 65.0 Blood Gas Tidal 500.0 Volume Blood Gas Low 5.0 PEEP Setting Blood Gas TM Notified Whom Blood Gas 08/29/2018 8:37:3 Notified Time 3 AM Subjective 24 Hr Interval Summary Additional Comments Constitutional: frail, other (Sedated on propofol and Fentanyl) Head: normocephalic Eyes: other (Right eye blind, left eye PERRLA) Neck: supple Respiratory: diminished breath sounds, other (Left chest tube) Cardiovascular: regular rate and rhythm Gastrointestinal: soft, other (hypoactive bowel sounds) Genitourinary - Male: other (Sellers catheter) Musculoskeletal: nl extremities to inspection Extremities: normal pulses Neurological: other (sedated) Exam/Review of Systems Exam Vitals Vital Signs Date Temp Pulse Resp B/P (MAP) Pulse Ox O2 O2 Flow FiO2 Time Delivery Rate 08/29/18 65 08:19 08/29/18 52 08:00 08/29/18 98.4 18 126/79 Mechanical 08:00 (95) Ventilator 08/29/18 100 07:00 08/26/18 15 18:34 Intake and Output 08/28/18 08/28/18 08/29/18 1515:00 23:00 07:00 IntakeIntake Total 1059.750 ml 1113.125 ml 921.500 ml OutputOutput Total 580 ml 745 ml 720 ml BalanceBalance 479.750 ml 368.125 ml 201.500 ml Results Results 24hrs Laboratory Tests Test 08/28/18 14:00 08/29/18 04:24 08/29/18 04:35 08/29/18 04:43 Urine Random 37.61 Creatinine Urine Random 30 Sodium Urine Total 30.0 H Protein Sodium Level 148 H Potassium Level 4.4 Chloride Level 110 Carbon Dioxide 26 Level Anion Gap 12 Blood Urea 33 H Nitrogen Creatinine 1.29 H Est Glomerular 56 L Filtrat Rate mL/min Glucose Level 120 Calcium Level 8.8 Phosphorus Level 4.6 Magnesium Level 2.4 White Blood Count 3.0 #L Red Blood Count 3.67 L Hemoglobin 10.1 L Hematocrit 33.4 L Mean Corpuscular 91.0 Volume Mean Corpuscular 27.5 L Hemoglobin Mean Corpuscular 30.2 L Hemoglobin Concen t Red Cell 15.9 H Distribution Width Platelet Count 87 #L Mean Platelet 10.5 H Volume Immature 0.300 Granulocytes % Neutrophils % 85.7 H Lymphocytes % 12.7 L Monocytes % 1.3 Eosinophils % 0.0 Basophils % 0.0 Nucleated Red 0.0 Blood Cells % Immature 0.010 Granulocytes # Neutrophils # 2.6 Lymphocytes # 0.4 L Monocytes # 0.0 L Eosinophils # 0.0 Basophils # 0.0 Nucleated Red 0.0 Blood Cells # Troponin I 0.110 Test 08/29/18 08:17 Blood Gas Blood arterial Specimen Source Arterial Blood 08/29/2018 8:30:0 Date Drawn 3 AM Arterial Blood pH 7.317 L (Temp corrected) Arterial Blood 46.3 H pCO2 (Temp correct) Arterial Blood 92.9 pO2 (Temp corrected) Arterial Blood 23.2 HCO3 Arterial Blood -3.1 L Base Excess Arterial Blood 95.9 Oxygen Saturation Miller Test ACCEPTAB Arterial Blood Right Radial Gas Puncture Site Arterial 0.2 Blood Carboxyhemo globin Arterial Blood 0.1 Methemoglobin Blood Gas A-a O2 320.2 H Differential Oxyhemoglobin 95.6 Percent Blood Gas 37.0 Temperature Blood Gas 18.0 Respiration Rate Blood Gas Actual 18 Respiration Rate Blood Gas VENT - AC Modality FiO2 65.0 Blood Gas Tidal 500.0 Volume Blood Gas Low 5.0 PEEP Setting Blood Gas TM Notified Whom Blood Gas 08/29/2018 8:37:3 Notified Time 3 AM HERMES HARRIS Aug 29, 2018 12:52
--- NOTE | 2018-08-29 14:45 | CONS ---
Assessment/Plan Assessment/Plan Hospital Course (Demo Recall) No acute changes overnight patient is awake and comfortable on vent no fevers. He is on dopamine drip for hypotension and bradycardia. WBC today 3 H&H 10.1 and 33.4 platelets 87 BUN 33 creatinine 1.29 Chest x-ray this morning revealed stable position of the tubes and lines stable small right pleural effusion with atelectasis versus pneumonia stable left lower lobe patchy airspace disease pneumoperitoneum is again noted Microbiology: Blood cultures negative MRSA swab negative urine culture growing staph species Indwelling: Right IJ triple-lumen catheter endotracheal tube NG tube left chest tube, Sellers catheter Antimicrobials: Vancomycin, Zosyn Physical examination: Well-developed chronically ill-appearing fragile elderly man who is intubated sedated in no distress. Head atraumatic normocephalic sclera nonicteric vehicle mucosa dry neck is supple chest rise symmetrical aron th sounds diminished bases. Heart: S1-S2. Abdomen soft bowel sounds present. Extremities cyanotic Assessment: 1. Septic shock 2. Symptomatic bradycardia, patient is on dopamine drip 3. Acute hypoxemic respiratory failure with questionable aspiration 4. Pneumoperitoneum of unclear etiology, no perforation per surgical note 5. Pancytopenia 5. Anemia 6. Non-ST elevation PR 7. Status post cardiac arrest Plan: Clinically doing better, more awake, we will will change antibiotics to meropenem given significant pancytopenia Consultation Date/Type/Reason Admit Date/Time Aug 27, 2018 at 00:03 Initial Consult Date 08/27/18 Type of Consult ID Requesting Provider: VIVIANA NOLAN MD Date/Time of Note DATE: 08/29/18 TIME: 14:43 Exam/Review of Systems Exam Vitals Vital Signs Date Temp Pulse Resp B/P (MAP) Pulse Ox O2 O2 Flow FiO2 Time Delivery Rate 08/29/18 42 18 132/70 100 13:00 (90) 08/29/18 50 12:00 08/29/18 98.4 Mechanical 08:00 Ventilator 08/26/18 15 18:34 Intake and Output 08/28/18 08/28/18 08/29/18 1515:00 23:00 07:00 IntakeIntake Total 1059.750 ml 1113.125 ml 921.500 ml OutputOutput Total 580 ml 745 ml 720 ml BalanceBalance 479.750 ml 368.125 ml 201.500 ml Results Result Diagram: 08/29/18 0435 08/29/18 0424 Results 24hrs Laboratory Tests Test 08/29/18 04:24 08/29/18 04:35 08/29/18 04:43 08/29/18 08:17 Sodium Level 148 H Potassium Level 4.4 Chloride Level 110 Carbon Dioxide 26 Level Anion Gap 12 Blood Urea 33 H Nitrogen Creatinine 1.29 H Est Glomerular 56 L Filtrat Rate mL/min Glucose Level 120 Calcium Level 8.8 Phosphorus Level 4.6 Magnesium Level 2.4 White Blood Count 3.0 #L Red Blood Count 3.67 L Hemoglobin 10.1 L Hematocrit 33.4 L Mean Corpuscular 91.0 Volume Mean Corpuscular 27.5 L Hemoglobin Mean Corpuscular 30.2 L Hemoglobin Concen t Red Cell 15.9 H Distribution Width Platelet Count 87 #L Mean Platelet 10.5 H Volume Immature 0.300 Granulocytes % Neutrophils % 85.7 H Lymphocytes % 12.7 L Monocytes % 1.3 Eosinophils % 0.0 Basophils % 0.0 Nucleated Red 0.0 Blood Cells % Immature 0.010 Granulocytes # Neutrophils # 2.6 Lymphocytes # 0.4 L Monocytes # 0.0 L Eosinophils # 0.0 Basophils # 0.0 Nucleated Red 0.0 Blood Cells # Troponin I 0.110 Blood Gas Blood arterial Specimen Source Arterial Blood 08/29/2018 8:30:0 Date Drawn 3 AM Arterial Blood pH 7.317 L (Temp corrected) Arterial Blood 46.3 H pCO2 (Temp correct) Arterial Blood 92.9 pO2 (Temp corrected) Arterial Blood 23.2 HCO3 Arterial Blood -3.1 L Base Excess Arterial Blood 95.9 Oxygen Saturation Miller Test ACCEPTAB Arterial Blood Right Radial Gas Puncture Site Arterial 0.2 Blood Carboxyhemo globin Arterial Blood 0.1 Methemoglobin Blood Gas A-a O2 320.2 H Differential Oxyhemoglobin 95.6 Percent Blood Gas 37.0 Temperature Blood Gas 18.0 Respiration Rate Blood Gas Actual 18 Respiration Rate Blood Gas VENT - AC Modality FiO2 65.0 Blood Gas Tidal 500.0 Volume Blood Gas Low 5.0 PEEP Setting Blood Gas TM Notified Whom Blood Gas 08/29/2018 8:37:3 Notified Time 3 AM AALIYAH MEZA NP Aug 29, 2018 14:45
--- NOTE | 2018-08-29 20:00 | RADRPT ---
Vent Rate: 63 bpm RR Interval: 0 msec WI Interval: 140 msec QRS Duration: 138 msec QT Interval: 470 msec QTC Interval: 480 msec P-R-T [place]: 80 - 123 - 67 degrees Normal sinus rhythm Right bundle branch block Abnormal ECG Electronically Signed By: Vivek Hernández [id number]
[2018-08-29] MEDS ORDERED: ALBUTEROL 0.083% (NEB) 2.5 MG/3 ML AMP HHN PRN (20:30)
[2018-08-29] MEDS ORDERED: IPRATROPIUM (NEB) 0.5 MG/2.5 ML AMP HHN PRN (20:30)
[2018-08-29] MEDS: MEROPENEM 1 GM/50ML(PMX) 50 ML IVPB SCH (20:38)
[2018-08-29] MEDS: FAMOTIDINE 20 MG TAB PO SCH (21:28)
[2018-08-29] MEDS: ALBUTEROL 0.083% (NEB) 2.5 MG/3 ML AMP HHN SCH ×2 (21:52→23:15)
[2018-08-29] MEDS: IPRATROPIUM (NEB) 0.5 MG/2.5 ML AMP HHN SCH (21:53)
[2018-08-30] VITALS (24 sets, daily range): BP systolic 115–156; BP diastolic 71–93; PULSE 48–83; RESP 10–23
[2018-08-30] MEDS: IPRATROPIUM (NEB) 0.5 MG/2.5 ML AMP HHN SCH ×5 (00:07→20:09)
[2018-08-30] MEDS ORDERED: ALBUTEROL 0.083% (NEB) 2.5 MG/3 ML AMP HHN SCH (02:00)
[2018-08-30] MEDS ORDERED: IPRATROPIUM (NEB) 0.5 MG/2.5 ML AMP HHN SCH (02:00)
[2018-08-30] MEDS: ALBUTEROL 0.083% (NEB) 2.5 MG/3 ML AMP HHN SCH ×4 (02:21→20:09)
[2018-08-30] MEDS: METHYLPREDNISOLONE 40 MG INJ IV SCH ×2 (05:18→20:58)
--- NOTE | 2018-08-30 07:52 | PN ---
DATE: 08/30/2018 SUBJECTIVE: The patient self-extubated himself yesterday and removed his chest tube. No other acute events noted overnight. No hemoptysis, hematemesis or hematochezia. OBJECTIVE: VITAL SIGNS: Blood pressure is 156/75, respirations 18, pulse 49, temperature 98.3. HEENT: Head is normocephalic. NECK: Supple. HEART: Regular rate. LUNGS: Show diminished breath sounds at the base. ABDOMEN: Soft, nontender to palpation. No rebound or guarding. EXTREMITIES: Negative for clubbing, cyanosis, no edema. DERMATOLOGIC: No rashes. MUSCULOSKELETAL: No joint effusion. NEUROLOGIC: No change in exam. MEDICATIONS: Reviewed. LABORATORY DATA: Shows a white count 4.6, hemoglobin 10.8, platelet count is 108. Sodium 150, potas sium 3.9, BUN 30, creatinine 1.7. ASSESSMENT AND PLAN: 1. Nonoliguric acute kidney injury with unknown baseline creatinine. Etiology of acute kidney injur y is secondary to hemodynamics, possible tubular injury. The patient's renal function has slowly bee n improving. At this point, continue current treatment plan, supportive care, renally dose all medic luciana. We will change the patient's IV fluids to hypertonic D5 water. Continue IV antibiotics to tye at underlying sepsis. 2. Hypernatremia. The patient has free water deficit of approximately 2.5 liters. We will start th e patient on D5 water at 75 mL an hour and monitor sodium levels closely. 3. Anemia. Continue to monitor hemoglobin and hematocrit levels. 4. Mineral bone disorder. Monitor calcium and phosphorus levels. 5. Chronic kidney disease. The patient is currently in acute kidney injury as stated above. Contin ue current treatment plan. Otherwise, continue disease factor modification. 6. Respiratory failure. The patient is status post self-extubation. Currently stable on nasal areli harvey. Continue to monitor. 7. Sepsis, status post shock secondary to pneumonia. Continue current antibiotic regimen. 8. Pneumothorax. The patient's chest tube was removed. Continue to monitor. Follow up chest x-ray . 9. Pneumoperitoneum, likely due to cardiac arrest. 10. Status post cardiac arrest. 11. Encephalopathy. Continue to monitor. Dictated By: JOE CHU/DUKE Conf#: [id number] [facility]#: [id number] CC: VIVIANA NOLAN MD; KHUSHI PATTON MD; WENDY LOVE MD;*End*
[2018-08-30] MEDS: FAMOTIDINE 20 MG TAB PO SCH ×2 (09:00→20:58)
[2018-08-30] MEDS: ASPIRIN 81 MG TAB PO SCH (09:00)
--- NOTE | 2018-08-30 09:22 | CONS ---
Consult Date/Type/Reason Admit Date/Time Aug 27, 2018 at 00:03 Initial Consult Date 08/27/18 Type of Consult Pulmonary Requesting Provider: VIVIANA NOLAN MD Date/Time of Note DATE: 08/30/18 TIME: 09:20 Subjective Patient awake alert oriented remained stable no respiratory distress Objective Vital Signs Date Temp Pulse Resp B/P (MAP) Pulse Ox O2 O2 Flow FiO2 Time Delivery Rate 08/30/18 58 08:00 08/30/18 11 156/75 97 Nasal 06:00 (102) Cannula 08/30/18 98.3 04:00 08/30/18 5.0 02:33 08/29/18 50 15:30 Intake and Output 08/29/18 08/29/18 08/30/18 1515:00 23:00 07:00 IntakeIntake Total 841.02 ml 646 ml 452 ml OutputOutput Total 730 ml 640 ml 605 ml BalanceBalance 111.02 ml 6 ml -153 ml Exam GENERAL: Frail elderly gentleman appears comfortable at rest no acute distress VITAL SIGNS: per chart NECK: Supple. No JVD or lymphadenopathy. CARDIAC EXAM: S1, S2. No added sounds or murmurs. CHEST: Diminished air entry bilaterally right side worse than left ABDOMEN: Soft, nontender. No guarding or rebound. EXTREMITIES: No cyanosis, clubbing or edema. NEUROLOGIC: Generalized weakness. No focal deficits. Vent Setting Fraction of Inspired Oxygen pe: 50 Positive End Expiratory Pressu: 5.0 Results/Medications Result Diagram: 08/30/18 0425 08/30/18 0432 Results 24 hrs Chest x-ray shows right sided infiltrate Laboratory Tests Test 08/29/18 19:53 08/30/18 04:25 08/30/18 04:32 08/30/18 07:00 Blood Gas Blood arterial Blood arterial Specimen Source Arterial Blood 08/29/2018 8:00: 08/30/2018 7:10: Date Drawn 52 PM 08 AM Arterial Blood 7.320 L 7.386 pH (Temp corrected) Arterial Blood 49.5 H 36.8 pCO2 (Temp correct) Arterial Blood 448.2 H 66.3 L pO2 (Temp corrected) Arterial Blood 24.9 21.6 L HCO3 Arterial Blood -1.5 -3.0 Base Excess Arterial Blood 99.7 H 91.1 L Oxygen Saturatio n Miller Test ACCEPTAB ACCEPTAB Arterial Blood Right Radial Right Radial Gas Puncture Site Arterial 0.1 0.6 Blood Carboxyhem oglobin Arterial Blood 0.2 0 Methemoglobin Blood Gas A-a O2 215.3 H 147.7 H Differential Oxyhemoglobin 99.4 H 90.6 L Percent Blood Gas 37.0 37.0 Temperature Blood Gas Actual 28 Respiration Rate Blood Gas MASK - NRB NASAL CANNULA Modality FiO2 100.0 36.0 Blood Gas MONTSERRAT ABRAHAM Notified Whom Blood Gas 08/29/2018 8:07: 08/30/2018 7:30: Notified Time 36 PM 05 AM White Blood 4.6 #L Count Red Blood Count 3.89 L Hemoglobin 10.9 L Hematocrit 35.3 L Mean Corpuscular 90.7 Volume Mean Corpuscular 28.0 L Hemoglobin Mean Corpuscular 30.9 L Hemoglobin Alisson nt Red Cell 16.2 H Distribution Width Platelet Count 108 #L Mean Platelet 10.7 H Volume Immature 0.900 H Granulocytes % Neutrophils % 88.5 H Lymphocytes % 7.6 L Monocytes % 3.0 Eosinophils % 0.0 Basophils % 0.0 Nucleated Red 0.0 Blood Cells % Immature 0.040 H Granulocytes # Neutrophils # 4.1 Lymphocytes # 0.4 L Monocytes # 0.1 L Eosinophils # 0.0 Basophils # 0.0 Nucleated Red 0.0 Blood Cells # Sodium Level 150 H Potassium Level 3.9 Chloride Level 113 H Carbon Dioxide 25 Level Anion Gap 12 Blood Urea 38 H Nitrogen Creatinine 1.07 Est Glomerular > 60 Filtrat Rate mL/min Glucose Level 107 Calcium Level 9.0 Phosphorus Level 3.4 Magnesium Level 2.4 Medications Current Medications Ondansetron HCl (Zofran Inj) 4 mg Q6H PRN IV NAUSEA AND/OR VOMITING; Start 08/26/18 at 23:30 Acetaminophen (Tylenol Supp) 650 mg Q4H PRN [place] PAIN LEVEL 1-3 OR FEVER; Start 08/26/18 at 23:30 Morphine Sulfate (morphine) 2 mg Q4H PRN IV PAIN LEVEL 7-10; Start 08/26/18 at 23:30 Enoxaparin Sodium (Lovenox) 30 mg DAILY SC Last administered on 08/29/18at 09:52; Admin Dose 30 MG; Start 08/27/18 at 09:00 Norepinephrine 250 ml @ 1.875 mls/ hr TITRATE IV Last administered on 08/27/18 09:48; Admin Dose 37.5 MLS/HR; Start 08/27/18 at 00:30 Dopamine HCl/ Dextrose 250 ml @ 5.625 mls/ hr TITRATE IV Last administered on 08/27/18 18:00; Admin Dose 16.875 MLS/HR; Start 08/27/18 at 02:00 Propofol 100 ml @ 1.875 mls/ hr Q12H IV Last administered on 08/29/18 09:45; Admin Dose 7.5 MLS/HR; Start 08/27/18 at 06:30 Methylprednisolone Sodium Succinate (Solu-Medrol) 40 mg Q6 IV Last administered on 08/30/18 05:18; Admin Dose 40 MG; Start 08/28/18 at 12:00 Fentanyl 1000 mcg/ Dextrose 100 ml @ 2.5 mls/hr TITRATE IV Last administered on 08/29/18 11:42; Admin Dose 2.5 MLS/HR; Start 08/28/18 at 12:30 Aspirin (Aspirin) 81 mg DAILY PO Last administered on 08/29/18 08:31; Admin Dose 81 MG; Start 08/29/18 at 09:00 Famotidine (Pepcid) 20 mg Q12 PO Last administered on 08/29/18 21:28; Admin Dose 20 MG; Start 08/29/18 at 21:00 Meropenem/Sodium Chloride 50 ml @ 100 mls/hr Q12 IVPB Last administered on 08/29/18 20:38; Admin Dose 100 MLS/HR; Start 08/29/18 at 21:00 Albuterol (Proventil 0.083% (Neb)) 2.5 mg Q6H RESP THERAPY HHN Last administered on 08/30/18 02:21; Admin Dose 2.5 MG; Start 08/29/18 at 21:52 Ipratropium [place] (Atrovent 0.02% (Neb)) 0.5 mg Q6H RESP THERAPY HHN Last administered on 08/30/18 02:21; Admin Dose 0.5 MG; Start 08/29/18 at 21:53 Dextrose 1,000 ml @ 75 mls/hr [id number] IV ; Start 08/30/18 at 07:30 Assessment/Plan Hospital Course (Demo Recall) Assessment 1. Status post hypoxemic respiratory failure but no safely extubated 2. Pneumoperitoneum status post chest tube which patient pulled out 3. Encephalopathy toxic metabolic resolving 4. Advanced COPD 5. Hypernatremia likely free water deficit Plan 1. Encourage free water 2. Incentive spirometry 3. Bronchodilators 4. PT eval 5. Transfer to telemetry Critical care time 40 minutes KHUSHI PATTON MD, [facility] Aug 30, 2018 09:22
[2018-08-30] MEDS: MEROPENEM 1 GM/50ML(PMX) 50 ML IVPB SCH ×2 (09:28→20:59)
[2018-08-30] MEDS: ENOXAPARIN 30 MG/0.3 ML SYG SC SCH (09:29)
[2018-08-30] MEDS: DEXTROSE 5% 1,000 ML IV SCH ×3 (09:36→22:54)
--- NOTE | 2018-08-30 12:29 | CONS ---
Assessment/Plan Assessment/Plan Assessment/Plan (Daily) 1.Hypotension-on levo. NL EF by echo this admit - better now, con't to adjust med rx as needed. 2.resp failure s/p intubation - now self extubated - better overall. 3.cardiac arrest - etiology unclear - con't supportive RX now. 4.Pneumoperitoneum - self d/c chest tube - stable SOB now. 5.Positive troponin-now trended neg - will monitor clinically for now. 6.renal failure 7.Leukocytosis - on anti-Bx, con't med rx. 8. anemia - H/H stable - no bleeding noted. 9, Thrombocytopenia Consultation Date/Type/Reason Admit Date/Time Aug 27, 2018 at 00:03 Initial Consult Date 08/27/18 Requesting Provider: VIVIANA NOLAN MD Date/Time of Note DATE: 08/30/18 TIME: 12:20 24 HR Interval Summary Free Text/Dictation No acute events - pt now extubated, chest tube out - no fevers. Con't med Rx. ROS: No fever, no chills, no nausea, no vomiting, no diarrhea/constipation No recent weight changes No chest pain, no PND, no orthopnea - improved SOB. No dizziness, blurred vision No thirst, no heat or cold intolerance Exam/Review of Systems Exam Vitals Vital Signs Date Temp Pulse Resp B/P (MAP) Pulse Ox O2 O2 Flow FiO2 Time Delivery Rate 08/30/18 66 16 147/91 Nasal 10:00 (109) Cannula 08/30/18 6.0 08:00 08/30/18 97.8 95 08:00 08/29/18 50 15:30 Intake and Output 08/29/18 08/29/18 08/30/18 1515:00 23:00 07:00 IntakeIntake Total 841.02 ml 646 ml 452 ml OutputOutput Total 730 ml 640 ml 605 ml BalanceBalance 111.02 ml 6 ml -153 ml Additional Comments General: WN/WD/NAD, AOx 2-3 HEENT: Unicetric/atraumatic/EOMI (follow commands) NECK: JVD elevated, no thyromegaly Lymph: no lymphadenopathy HEART: regular with no S3, II/ systolic murmur at apex LUNGS: Coarse sounds ABD: soft, NT, ND, +BS : Intact Neuro: non focal SKIN: chronic changes EXT: trace edema Results Result Diagram: 08/30/18 0425 08/30/18 0432 Results 24hrs Laboratory Tests Test 08/29/18 19:53 08/30/18 04:25 08/30/18 04:32 08/30/18 07:00 Blood Gas Blood arterial Blood arterial Specimen Source Arterial Blood 08/29/2018 8:00: 08/30/2018 7:10: Date Drawn 52 PM 08 AM Arterial Blood 7.320 L 7.386 pH (Temp corrected) Arterial Blood 49.5 H 36.8 pCO2 (Temp correct) Arterial Blood 448.2 H 66.3 L pO2 (Temp corrected) Arterial Blood 24.9 21.6 L HCO3 Arterial Blood -1.5 -3.0 Base Excess Arterial Blood 99.7 H 91.1 L Oxygen Saturatio n Miller Test ACCEPTAB ACCEPTAB Arterial Blood Right Radial Right Radial Gas Puncture Site Arterial 0.1 0.6 Blood Carboxyhem oglobin Arterial Blood 0.2 0 Methemoglobin Blood Gas A-a O2 215.3 H 147.7 H Differential Oxyhemoglobin 99.4 H 90.6 L Percent Blood Gas 37.0 37.0 Temperature Blood Gas Actual 28 Respiration Rate Blood Gas MASK - NRB NASAL CANNULA Modality FiO2 100.0 36.0 Blood Gas MONTSERRAT ABRAHAM CW Notified Whom Blood Gas 08/29/2018 8:07: 08/30/2018 7:30: Notified Time 36 PM 05 AM White Blood 4.6 #L Count Red Blood Count 3.89 L Hemoglobin 10.9 L Hematocrit 35.3 L Mean Corpuscular 90.7 Volume Mean Corpuscular 28.0 L Hemoglobin Mean Corpuscular 30.9 L Hemoglobin Alisson nt Red Cell 16.2 H Distribution Width Platelet Count 108 #L Mean Platelet 10.7 H Volume Immature 0.900 H Granulocytes % Neutrophils % 88.5 H Lymphocytes % 7.6 L Monocytes % 3.0 Eosinophils % 0.0 Basophils % 0.0 Nucleated Red 0.0 Blood Cells % Immature 0.040 H Granulocytes # Neutrophils # 4.1 Lymphocytes # 0.4 L Monocytes # 0.1 L Eosinophils # 0.0 Basophils # 0.0 Nucleated Red 0.0 Blood Cells # Sodium Level 150 H Potassium Level 3.9 Chloride Level 113 H Carbon Dioxide 25 Level Anion Gap 12 Blood Urea 38 H Nitrogen Creatinine 1.07 Est Glomerular > 60 Filtrat Rate mL/min Glucose Level 107 Calcium Level 9.0 Phosphorus Level 3.4 Magnesium Level 2.4 JIE ALEJO MD Aug 30, 2018 12:29
--- NOTE | 2018-08-30 13:48 | CONS ---
Assessment/Plan Assessment/Plan Hospital Course (Demo Recall) Patient self extubated himself and also pulled chest tube is awake looks comfortable in no distress no fevers. Chest x-ray this morning revealed no pneumothorax Microbiology: Blood cultures negative MRSA swab negative urine culture growing staph species Indwelling: Right IJ triple-lumen catheter endotracheal tube NG tube left chest tube, Sellers catheter Antimicrobials: Merrem Physical examination: Well-developed chronically ill-appearing fragile elderly man who is intubated sedated in no distress. Head atraumatic normocephalic sclera nonicteric vehicle mucosa dry neck is supple chest rise symmetrical breath sounds diminished bases. Heart: S1-S2. Abdomen soft bowel sounds presen t. Extremities cyanotic Assessment: 1. Septic shock 2. Bradycardia 3. Acute hypoxemic respiratory failure with questionable aspiration 4. Pneumoperitoneum of unclear etiology, no perforation per surgical note 5. Pancytopenia 5. Anemia 6. Non-ST elevation MO 7. Status post cardiac arrest Plan: Stable status post self extubation, continue present care, aspiration precautions Consultation Date/Type/Reason Admit Date/Time Aug 27, 2018 at 00:03 Initial Consult Date 08/27/18 Type of Consult ID Requesting Provider: VIVIANA NOLAN MD Date/Time of Note DATE: 08/30/18 TIME: 13:46 Exam/Review of Systems Exam Vitals Vital Signs Date Temp Pulse Resp B/P (MAP) Pulse Ox O2 O2 Flow FiO2 Time Delivery Rate 08/30/18 66 16 147/91 Nasal 10:00 (109) Cannula 08/30/18 6.0 08:00 08/30/18 97.8 95 08:00 08/29/18 50 15:30 Intake and Output 08/29/18 08/29/18 08/30/18 1515:00 23:00 07:00 IntakeIntake Total 841.02 ml 646 ml 452 ml OutputOutput Total 730 ml 640 ml 805 ml BalanceBalance 111.02 ml 6 ml -353 ml Results Result Diagram: 08/30/18 0425 08/30/18 0432 Results 24hrs Laboratory Tests Test 08/29/18 19:53 08/30/18 04:25 08/30/18 04:32 08/30/18 07:00 Blood Gas Blood arterial Blood arterial Specimen Source Arterial Blood 08/29/2018 8:00: 08/30/2018 7:10: Date Drawn 52 PM 08 AM Arterial Blood 7.320 L 7.386 pH (Temp corrected) Arterial Blood 49.5 H 36.8 pCO2 (Temp correct) Arterial Blood 448.2 H 66.3 L pO2 (Temp corrected) Arterial Blood 24.9 21.6 L HCO3 Arterial Blood -1.5 -3.0 Base Excess Arterial Blood 99.7 H 91.1 L Oxygen Saturatio n Miller Test ACCEPTAB ACCEPTAB Arterial Blood Right Radial Right Radial Gas Puncture Site Arterial 0.1 0.6 Blood Carboxyhem oglobin Arterial Blood 0.2 0 Methemoglobin Blood Gas A-a O2 215.3 H 147.7 H Differential Oxyhemoglobin 99.4 H 90.6 L Percent Blood Gas 37.0 37.0 Temperature Blood Gas Actual 28 Respiration Rate Blood Gas MASK - NRB NASAL CANNULA Modality FiO2 100.0 36.0 Blood Gas MONTSERRAT ABRAHAM CW Notified Whom Blood Gas 08/29/2018 8:07: 08/30/2018 7:30: Notified Time 36 PM 05 AM White Blood 4.6 #L Count Red Blood Count 3.89 L Hemoglobin 10.9 L Hematocrit 35.3 L Mean Corpuscular 90.7 Volume Mean Corpuscular 28.0 L Hemoglobin Mean Corpuscular 30.9 L Hemoglobin Alisson nt Red Cell 16.2 H Distribution Width Platelet Count 108 #L Mean Platelet 10.7 H Volume Immature 0.900 H Granulocytes % Neutrophils % 88.5 H Lymphocytes % 7.6 L Monocytes % 3.0 Eosinophils % 0.0 Basophils % 0.0 Nucleated Red 0.0 Blood Cells % Immature 0.040 H Granulocytes # Neutrophils # 4.1 Lymphocytes # 0.4 L Monocytes # 0.1 L Eosinophils # 0.0 Basophils # 0.0 Nucleated Red 0.0 Blood Cells # Sodium Level 150 H Potassium Level 3.9 Chloride Level 113 H Carbon Dioxide 25 Level Anion Gap 12 Blood Urea 38 H Nitrogen Creatinine 1.07 Est Glomerular > 60 Filtrat Rate mL/min Glucose Level 107 Calcium Level 9.0 Phosphorus Level 3.4 Magnesium Level 2.4 AALIYAH MEZA NP Aug 30, 2018 13:47
--- NOTE | 2018-08-30 20:53 | PN ---
Date/Time of Note Date/Time of Note DATE: 08/30/18 TIME: 20:49 Assessment/Plan VTE Pro[place]axis [place] [facility]: 15 [place]CD applied [place] [facility] Yes SCD contraindicated: other Pharmacological prophylaxis: other Lines/Catheters IV Catheter Type (from [facility] Central Line Urinary Cath still in place: Yes Reason Cath still needed: urinary retention Assessment/Plan Assessment/Plan -Sepsis with shock, continue broad-spectrum antibiotics, IV fluids, pressors, ICU care. Dr. Sutton is following in infection disease consultation. -Status post cardiac arrest. Dr. Hernández is following in cardiology consultation. -Left-sided pneumothorax, status post left side chest tube placement. -Acute respiratory failure, continue ventilatory support bronchodilators. Dr. Molina is following in pulmonology consultation. -Pneumoperitoneum most likely due to cardiac arrest. Dr. Rivas is following in general surgery consultation. -Left lower lobe pneumonia -Severe emphysema -JEREMÍAS with possible chronic kidney disease. Dr Arvizu is following in nephrology consultation. Further recommendations based on clinical course. Plan of care discussed with Dr. Juarez. Result Diagram: 08/30/18 0425 08/30/18 0432 Results 24hrs Laboratory Tests Test 08/30/18 04:25 08/30/18 04:32 08/30/18 07:00 White Blood Count 4.6 #L Red Blood Count 3.89 L Hemoglobin 10.9 L Hematocrit 35.3 L Mean Corpuscular Volume 90.7 Mean Corpuscular Hemoglobin 28.0 L Mean Corpuscular 30.9 L Hemoglobin Concent Red Cell Distribution Width 16.2 H Platelet Count 108 #L Mean Platelet Volume 10.7 H Immature Granulocytes % 0.900 H Neutrophils % 88.5 H Lymphocytes % 7.6 L Monocytes % 3.0 Eosinophils % 0.0 Basophils % 0.0 Nucleated Red Blood Cells % 0.0 Immature Granulocytes # 0.040 H Neutrophils # 4.1 Lymphocytes # 0.4 L Monocytes # 0.1 L Eosinophils # 0.0 Basophils # 0.0 Nucleated Red Blood Cells # 0.0 Sodium Level 150 H Potassium Level 3.9 Chloride Level 113 H Carbon Dioxide Level 25 Anion Gap 12 Blood Urea Nitrogen 38 H Creatinine 1.07 Est Glomerular Filtrat > 60 Rate mL/min Glucose Level 107 Calcium Level 9.0 Phosphorus Level 3.4 Magnesium Level 2.4 Blood Gas Specimen Source Blood arterial Arterial Blood Date Drawn 08/30/2018 7:10:08 AM Arterial Blood pH 7.386 (Temp corrected) Arterial Blood pCO2 36.8 (Temp correct) Arterial Blood pO2 66.3 L (Temp corrected) Arterial Blood HCO3 21.6 L Arterial Blood Base Excess -3.0 Arterial Blood 91.1 L Oxygen Saturation Miller Test ACCEPTAB Arterial Blood Gas Right Radial Puncture Site Arterial 0.6 Blood Carboxyhemoglobin Arterial Blood Methemoglobin 0 Blood Gas A-a O2 147.7 H Differential Oxyhemoglobin Percent 90.6 L Blood Gas Temperature 37.0 Blood Gas Modality NASAL CANNULA FiO2 36.0 Blood Gas Notified Whom CW Blood Gas Notified Time 08/30/2018 7:30:05 AM Subjective 24 Hr Interval Summary Free Text/Dictation ICU - LUE- swelling , will do stat doppler- fu Constitutional: requiring O2 ENT: no complaints Respiratory: no complaints Cardiovascular: no complaints Gastrointestinal: no complaints Genitourinary: no complaints Musculoskeletal: no complaints Skin: no complaints Neurologic: no complaints Endocrine: no complaints Lymphatic: no complaints Exam/Review of Systems Exam Vitals Vital Signs Date Temp Pulse Resp B/P (MAP) Pulse Ox O2 O2 Flow FiO2 Time Delivery Rate 08/30/18 97.7 61 18 127/71 99 Mechanical 20:00 (89) Ventilator 08/30/18 5.0 16:25 08/29/18 50 15:30 Intake and Output 08/29/18 08/29/18 08/30/18 1515:00 23:00 07:00 IntakeIntake Total 841.02 ml 646 ml 452 ml OutputOutput Total 730 ml 640 ml 805 ml BalanceBalance 111.02 ml 6 ml -353 ml Constitutional: alert, well developed Psych: nl mood/affect Eyes: nl lids ENMT: nl external ears & nose Neck: non-tender Respiratory: diminished breath sounds, other Cardiovascular: nl pulses Gastrointestinal: soft, non-tender Musculoskeletal: nl extremities to inspection Extremities: edema Skin: other Results Results 24hrs Laboratory Tests Test 08/30/18 04:25 08/30/18 04:32 08/30/18 07:00 White Blood Count 4.6 #L Red Blood Count 3.89 L Hemoglobin 10.9 L Hematocrit 35.3 L Mean Corpuscular Volume 90.7 Mean Corpuscular Hemoglobin 28.0 L Mean Corpuscular 30.9 L Hemoglobin Concent Red Cell Distribution Width 16.2 H Platelet Count 108 #L Mean Platelet Volume 10.7 H Immature Granulocytes % 0.900 H Neutrophils % 88.5 H Lymphocytes % 7.6 L Monocytes % 3.0 Eosinophils % 0.0 Basophils % 0.0 Nucleated Red Blood Cells % 0.0 Immature Granulocytes # 0.040 H Neutrophils # 4.1 Lymphocytes # 0.4 L Monocytes # 0.1 L Eosinophils # 0.0 Basophils # 0.0 Nucleated Red Blood Cells # 0.0 Sodium Level 150 H Potassium Level 3.9 Chloride Level 113 H Carbon Dioxide Level 25 Anion Gap 12 Blood Urea Nitrogen 38 H Creatinine 1.07 Est Glomerular Filtrat > 60 Rate mL/min Glucose Level 107 Calcium Level 9.0 Phosphorus Level 3.4 Magnesium Level 2.4 Blood Gas Specimen Source Blood arterial Arterial Blood Date Drawn 08/30/2018 7:10:08 AM Arterial Blood pH 7.386 (Temp corrected) Arterial Blood pCO2 36.8 (Temp correct) Arterial Blood pO2 66.3 L (Temp corrected) Arterial Blood HCO3 21.6 L Arterial Blood Base Excess -3.0 Arterial Blood 91.1 L Oxygen Saturation Miller Test ACCEPTAB Arterial Blood Gas Right Radial Puncture Site Arterial 0.6 Blood Carboxyhemoglobin Arterial Blood Methemoglobin 0 Blood Gas A-a O2 147.7 H Differential Oxyhemoglobin Percent 90.6 L Blood Gas Temperature 37.0 Blood Gas Modality NASAL CANNULA FiO2 36.0 Blood Gas Notified Whom CW Blood Gas Notified Time 08/30/2018 7:30:05 AM Medications Medication Current Medications Ondansetron HCl (Zofran Inj) 4 mg Q6H PRN IV NAUSEA AND/OR VOMITING; Start 08/26/18 at 23:30 Acetaminophen (Tylenol Supp) 650 mg Q4H PRN [place] PAIN LEVEL 1-3 OR FEVER; Start 08/26/18 at 23:30 Morphine Sulfate (morphine) 2 mg Q4H PRN IV PAIN LEVEL 7-10; Start 08/26/18 at 23:30 Enoxaparin Sodium (Lovenox) 30 mg DAILY SC Last administered on 08/30/18at 09:29 ; Admin Dose 30 MG; Start 08/27/18 at 09:00 Norepinephrine 250 ml @ 1.875 mls/ hr TITRATE IV Last administered on 08/27/18 09:48; Admin Dose 37.5 MLS/HR; Start 08/27/18 at 00:30 Dopamine HCl/ Dextrose 250 ml @ 5.625 mls/ hr TITRATE IV Last administered on 08/27/18 18:00; Admin Dose 16.875 MLS/HR; Start 08/27/18 at 02:00 Aspirin (Aspirin) 81 mg DAILY PO Last administered on 08/29/18 08:31; Admin Dose 81 MG; Start 08/29/18 at 09:00 Famotidine (Pepcid) 20 mg Q12 PO Last administered on 08/29/18 21:28; Admin Dose 20 MG; Start 08/29/18 at 21:00 Meropenem/Sodium Chloride 50 ml @ 100 mls/hr Q12 IVPB Last administered on 08/30/18 09:28; Admin Dose 100 MLS/HR; Start 08/29/18 at 21:00 Albuterol (Proventil 0.083% (Neb)) 2.5 mg Q6H RESP THERAPY HHN Last administered on 08/30/18 20:09; Admin Dose 2.5 MG; Start 08/29/18 at 21:52 Ipratropium [place] (Atrovent 0.02% (Neb)) 0.5 mg Q6H RESP THERAPY HHN Last administered on 08/30/18 20:09; Admin Dose 0.5 MG; Start 08/29/18 at 21:53 Dextrose 1,000 ml @ 75 mls/hr [id number] IV Last administered on 08/30/18 09:36; Admin Dose 75 MLS/HR; Start 08/30/18 at 07:30 Methylprednisolone Sodium Succinate (Solu-Medrol) 40 mg Q12 IV ; Start 08/30/18 at 21:00 KEDAR LUGO Aug 30, 2018 20:53
[2018-08-31] VITALS (20 sets, daily range): BP systolic 114–160; BP diastolic 44–108; PULSE 50–72; RESP 15–24
[2018-08-31] MEDS: IPRATROPIUM (NEB) 0.5 MG/2.5 ML AMP HHN SCH ×4 (02:21→19:37)
[2018-08-31] MEDS: ALBUTEROL 0.083% (NEB) 2.5 MG/3 ML AMP HHN SCH ×4 (02:21→19:37)
--- NOTE | 2018-08-31 08:05 | PN ---
DATE: 08/31/2018 SUBJECTIVE: The patient is clinically stable, remains in intensive care unit. The patient is tolera ting p.o., remains on D5 water. No other events noted. OBJECTIVE: VITAL SIGNS: Blood pressure is 113/79, respirations 17, pulse 59, temperature 97.7. HEENT: Head is normocephalic. NECK: Supple. HEART: Regular rate. LUNGS: Show diminished breath sounds at the base. ABDOMEN: Soft, nontender to palpation without rebound or guarding. EXTREMITIES: Negative for clubbing, cyanosis, no edema. DERMATOLOGIC: No rashes. MUSCULOSKELETAL: No joint effusion. NEUROLOGIC: No change in exam. MEDICATIONS: Reviewed. LABORATORY DATA: Shows sodium 145, potassium 3.6, BUN 36, creatinine 0.95. White count is 3.4, hemo globin 10.3, platelet count is 104. IMAGING STUDIES: The patient's Doppler study shows a DVT on the left axillary and brachial veins. ASSESSMENT AND PLAN: 1. Nonoliguric acute kidney injury with unknown baseline creatinine. Etiology was secondary to hemo dynamics, possible tubular injury. Renal function continues to improve. Continue current treatment plan, supportive care, renally dose all medication. 2. Hypernatremia. The patient has a free water deficit of approximately 1 liter. Continue to encou rage free water intake. Will continue D5 water, monitor sodium levels closely. 3. Anemia. Monitor hemoglobin and hematocrit levels. 4. Mineral bone disorder, monitor calcium and phosphorus levels. 5. History of chronic kidney disease. The patient is currently in acute kidney injury as stated abo ve. Continue current treatment plan. Continue disease factor modification. 6. Respiratory failure. Patient is status post extubation, currently stable on nasal cannula. 7. Sepsis, status post shock. Etiology secondary to pneumonia. Patient completing antibiotic cours e. 8. Pneumothorax. Continue to monitor. Patient is status post chest tube removal. 9. Pneumoperitoneum. 10. Status post cardiac arrest. 11. Encephalopathy, resolving. Dictated By: JOE BLACK DO NR/NTS Conf#: [id number] DID#: [id number] CC: VIVIANA NOLAN MD;*EndCC*
--- NOTE | 2018-08-31 09:04 | CONS ---
Assessment/Plan Assessment/Plan Assessment/Plan (Daily) Assessment and recommendations; 1. Patient admitted with acute respiratory failure due to severe hypercapnia likely from underlying COPD exacerbation with marked overall interval improvement. Status post self extubation with self removal of left side chest tube with stable clinical status. 2. Underlying severe bullous emphysema. 3. Right lower lobe pneumonia. 4. Anemia and thrombocytopenia. 5. Acute renal injury with continually improving renal function. Continue current supportive care. Further steroid taper in 24 hours. Transfer to medical floor. Consultation Date/Type/Reason Admit Date/Time Aug 27, 2018 at 00:03 Initial Consult Date 08/27/18 Type of Consult Pulmonary/critical care Patient is a 68-year-old male who is a [place] was sent over to the hospital because of hypothermia and altered mental status. In the emergency room, patient developed cardiac arrest requiring CPR and intubation. In the course of workup the patient also required a chest tube placement on the left side. CT imaging of the abdomen showed pneumoperitoneum with possibly perforated viscus. By the time I saw the patient in ICU, patient is orally intubated and sedated. History was obtained from medical records. Past medical history; essentially unremarkable except for possibly COPD. Medications; reviewed. Patient is currently on dopamine at 6 mics per kilogram per minute, Levophed 20 mics per minute, propofol 25 mics per kilogram per minute. Other medications were also reviewed. Allergies; none. Social history; not available. Family history and occupational history is also not available. Review of system; unable to be obtained. General exam; elderly male, orally intubated, sedated, currently in no distress. Requesting Provider: VIVIANA NOLAN MD Date/Time of Note DATE: 08/31/18 TIME: 09:02 24 HR Interval Summary Free Text/Dictation Patient's condition is stable. Remains completely awake and alert. Denies any shortness of breath, coughing, wheezing. Chest pain. General exam; elderly male, awake alert, currently no distress. Exam/Review of Systems Exam Vitals Vital Signs Date Temp Pulse Resp B/P (MAP) Pulse Ox O2 O2 Flow FiO2 Time Delivery Rate 08/31/18 54 08:00 08/31/18 17 122/76 92 Mechanical 07:00 (91) Ventilator 08/31/18 97.7 04:00 08/31/18 3.0 02:31 08/29/18 50 15:30 Intake and Output 08/30/18 08/30/18 08/31/18 1414:59 22:59 06:59 IntakeIntake Total 690 ml 1485 ml 1650 ml OutputOutput Total 1600 ml 900 ml 1075 ml BalanceBalance -910 ml 585 ml 575 ml Exam HEENT exam; supple neck, no JVD. No lymphadenopathy. Midline trachea. No thyromegaly. There is a right corneal opacity. Chest exam; diminished but clear breath sounds. S1-S2 audible, no murmurs. Regular rhythm. Abdomen exam; soft, nontender. Nondistended. No organomegaly. Bowel sounds audible. Extremity exam; no peripheral edema or clubbing. [employer] exam; no focal deficit. Results Result Diagram: 08/31/18 0345 08/31/18 0345 Results 24hrs Laboratory Tests Test 08/31/18 03:45 White Blood Count 3.4 #L Red Blood Count 3.68 L Hemoglobin 10.3 L Hematocrit 33.1 L Mean Corpuscular Volume 89.9 Mean Corpuscular Hemoglobin 28.0 L Mean Corpuscular Hemoglobin Concent 31.1 L Red Cell Distribution Width 16.0 H Platelet Count 104 L Mean Platelet Volume 10.8 H Immature Granulocytes % 0.300 Neutrophils % 81.8 H Lymphocytes % 13.5 L Monocytes % 4.4 Eosinophils % 0.0 Basophils % 0.0 Nucleated Red Blood Cells % 0.0 Immature Granulocytes # 0.010 Neutrophils # 2.8 Lymphocytes # 0.5 L Monocytes # 0.2 L Eosinophils # 0.0 Basophils # 0.0 Nucleated Red Blood Cells # 0.0 Sodium Level 145 H Potassium Level 3.6 Chloride Level 109 Carbon Dioxide Level 28 Anion Gap 8 Blood Urea Nitrogen 36 H Creatinine 0.95 Est Glomerular Filtrat Rate mL/min > 60 Glucose Level 200 Calcium Level 8.8 Phosphorus Level 2.9 Magnesium Level 2.4 Total Bilirubin 0.0 L Direct Bilirubin 0.00 Indirect Bilirubin 0.0 Aspartate Amino Transf (AST/SGOT) 16 Alanine Aminotransferase (ALT/SGPT) 35 Alkaline Phosphatase 46 Total Protein 5.4 L Albumin 2.7 L Globulin 2.70 Albumin/Globulin Ratio 1.00 Medications Medication Current Medications Ondansetron HCl (Zofran Inj) 4 mg Q6H PRN IV NAUSEA AND/OR VOMITING; Start 08/26/18 at 23:30 Acetaminophen (Tylenol Supp) 650 mg Q4H PRN SC PAIN LEVEL 1-3 OR FEVER; Start 08/26/18 at 23:30 Morphine Sulfate (morphine) 2 mg Q4H PRN IV PAIN LEVEL 7-10; Start 08/26/18 at 23:30 Enoxaparin Sodium (Lovenox) 30 mg DAILY SC Last administered on 08/30/18 09:29; Admin Dose 30 MG; Start 08/27/18 at 09:00 Norepinephrine 250 ml @ 1.875 mls/ hr TITRATE IV Last administered on 08/27/18 09:48; Admin Dose 37.5 MLS/HR; Start 08/27/18 at 00:30 Dopamine HCl/ Dextrose 250 ml @ 5.625 mls/ hr TITRATE IV Last administered on 08/27/18 18:00; Admin Dose 16.875 MLS/HR; Start 08/27/18 at 02:00 Aspirin (Aspirin) 81 mg DAILY PO Last administered on 08/29/18 08:31; Admin Dose 81 MG; Start 08/29/18 at 09:00 Famotidine (Pepcid) 20 mg Q12 PO Last administered on 08/30/18 20:58; Admin Dose 20 MG; Start 08/29/18 at 21:00 Meropenem/Sodium Chloride 50 ml @ 100 mls/hr Q12 IVPB Last administered on 08/30/18 20:59; Admin Dose 100 MLS/HR; Start 08/29/18 at 21:00 Albuterol (Proventil 0.083% (Neb)) 2.5 mg Q6H RESP THERAPY HHN Last administered on 08/31/18 02:21; Admin Dose 2.5 MG; Start 08/29/18 at 21:52 Ipratropium [place] (Atrovent 0.02% (Neb)) 0.5 mg Q6H RESP THERAPY HHN Last administered on 08/31/18 02:21; Admin Dose 0.5 MG; Start 08/29/18 at 21:53 Dextrose 1,000 ml @ 50 mls/hr Q20H IV Last administered on 08/30/18 22:54; Admin Dose 75 MLS/HR; Start 08/30/18 at 07:30 Methylprednisolone Sodium Succinate (Solu-Medrol) 40 mg Q12 IV Last administered on 08/30/18at 20:58; Admin Dose 40 MG; Start 08/30/18 at 21:00 GAMALIEL BASILIO Aug 31, 2018 09:04
[2018-08-31] MEDS: FAMOTIDINE 20 MG TAB PO SCH ×2 (09:54→20:46)
[2018-08-31] MEDS: MEROPENEM 1 GM/50ML(PMX) 50 ML IVPB SCH ×2 (09:54→20:46)
[2018-08-31] MEDS: METHYLPREDNISOLONE 40 MG INJ IV SCH ×2 (09:54→20:46)
[2018-08-31] MEDS: ASPIRIN 81 MG TAB PO SCH (09:55)
[2018-08-31] MEDS: ENOXAPARIN 30 MG/0.3 ML SYG SC SCH (09:55)
--- NOTE | 2018-08-31 11:11 | PN ---
Date/Time of Note Date/Time of Note DATE: 08/31/18 TIME: 11:11 Assessment/Plan VTE Prophylaxis Risk score (from [facility] [place])>0 risk: 11 SCD applied (from [facility] [place]): Yes Pharmacological prophylaxis: LMWH Lines/Catheters IV Catheter Type (from [facility]): Central Line Central line still needed: Yes Urinary Cath still in place: Yes Reason Cath still needed: skin wounds contaminated by urine Assessment/Plan Hospital Course -Sepsis with shock, continue broad-spectrum antibiotics, IV fluids, pressors, ICU care. Dr. Sutton is following in infection disease consultation. -Status post cardiac arrest. Dr. Hernández is following in cardiology consultation. -Left-sided pneumothorax, status post left side chest tube placement. -Acute respiratory failure, continue ventilatory support bronchodilators. Dr. Molina is following in pulmonology consultation. -Pneumoperitoneum most likely due to cardiac arrest. Dr. Rivas is following in general surgery consultation. -Left lower lobe pneumonia -Severe emphysema -JEREMÍAS with possible chronic kidney disease. Dr Arvizu is following in nephrology consultation. Result Diagram: 08/31/18 0345 08/31/18 0345 Results 24hrs Laboratory Tests Test 08/31/18 03:45 White Blood Count 3.4 #L Red Blood Count 3.68 L Hemoglobin 10.3 L Hematocrit 33.1 L Mean Corpuscular Volume 89.9 Mean Corpuscular Hemoglobin 28.0 L Mean Corpuscular Hemoglobin Concent 31.1 L Red Cell Distribution Width 16.0 H Platelet Count 104 L Mean Platelet Volume 10.8 H Immature Granulocytes % 0.300 Neutrophils % 81.8 H Lymphocytes % 13.5 L Monocytes % 4.4 Eosinophils % 0.0 Basophils % 0.0 Nucleated Red Blood Cells % 0.0 Immature Granulocytes # 0.010 Neutrophils # 2.8 Lymphocytes # 0.5 L Monocytes # 0.2 L Eosinophils # 0.0 Basophils # 0.0 Nucleated Red Blood Cells # 0.0 Sodium Level 145 H Potassium Level 3.6 Chloride Level 109 Carbon Dioxide Level 28 Anion Gap 8 Blood Urea Nitrogen 36 H Creatinine 0.95 Est Glomerular Filtrat Rate mL/min > 60 Glucose Level 200 Calcium Level 8.8 Phosphorus Level 2.9 Magnesium Level 2.4 Total Bilirubin 0.0 L Direct Bilirubin 0.00 Indirect Bilirubin 0.0 Aspartate Amino Transf (AST/SGOT) 16 Alanine Aminotransferase (ALT/SGPT) 35 Alkaline Phosphatase 46 Total Protein 5.4 L Albumin 2.7 L Globulin 2.70 Albumin/Globulin Ratio 1.00 Subjective 24 Hr Interval Summary Free Text/Dictation Patient awake, has no complaints Exam/Review of Systems Exam Vitals Vital Signs Date Temp Pulse Resp B/P (MAP) Pulse Ox O2 O2 Flow FiO2 Time Delivery Rate 08/31/18 87 19 95 Nasal 2.0 10:17 Cannula 08/31/18 134/72 09:30 (92) 08/31/18 98.0 08:00 08/29/18 50 15:30 Intake and Output 08/30/18 08/30/18 08/31/18 1515:00 23:00 07:00 IntakeIntake Total 765 ml 1485 ml 1675 ml OutputOutput Total 1550 ml 850 ml 1125 ml BalanceBalance -785 ml 635 ml 550 ml Constitutional: well developed Head: normocephalic, atraumatic Neck: supple Respiratory: diminished breath sounds Cardiovascular: regular rate and rhythm Gastrointestinal: soft, non-tender Extremities: normal pulses Results Results 24hrs Laboratory Tests Test 08/31/18 03:45 White Blood Count 3.4 #L Red Blood Count 3.68 L Hemoglobin 10.3 L Hematocrit 33.1 L Mean Corpuscular Volume 89.9 Mean Corpuscular Hemoglobin 28.0 L Mean Corpuscular Hemoglobin Concent 31.1 L Red Cell Distribution Width 16.0 H Platelet Count 104 L Mean Platelet Volume 10.8 H Immature Granulocytes % 0.300 Neutrophils % 81.8 H Lymphocytes % 13.5 L Monocytes % 4.4 Eosinophils % 0.0 Basophils % 0.0 Nucleated Red Blood Cells % 0.0 Immature Granulocytes # 0.010 Neutrophils # 2.8 Lymphocytes # 0.5 L Monocytes # 0.2 L Eosinophils # 0.0 Basophils # 0.0 Nucleated Red Blood Cells # 0.0 Sodium Level 145 H Potassium Level 3.6 Chloride Level 109 Carbon Dioxide Level 28 Anion Gap 8 Blood Urea Nitrogen 36 H Creatinine 0.95 Est Glomerular Filtrat Rate mL/min > 60 Glucose Level 200 Calcium Level 8.8 Phosphorus Level 2.9 Magnesium Level 2.4 Total Bilirubin 0.0 L Direct Bilirubin 0.00 Indirect Bilirubin 0.0 Aspartate Amino Transf (AST/SGOT) 16 Alanine Aminotransferase (ALT/SGPT) 35 Alkaline Phosphatase 46 Total Protein 5.4 L Albumin 2.7 L Globulin 2.70 Albumin/Globulin Ratio 1.00 Medications Medication Current Medications Ondansetron HCl (Zofran Inj) 4 mg Q6H PRN IV NAUSEA AND/OR VOMITING; Start 08/26/18 at 23:30 Acetaminophen (Tylenol Supp) 650 mg Q4H PRN ME PAIN LEVEL 1-3 OR FEVER; Start 08/26/18 at 23:30 Morphine Sulfate (morphine) 2 mg Q4H PRN IV PAIN LEVEL 7-10; Start 08/26/18 at 23:30 Enoxaparin Sodium (Lovenox) 30 mg DAILY SC Last administered on 08/31/18 09:55; Admin Dose 30 MG; Start 08/27/18 at 09:00 Norepinephrine 250 ml @ 1.875 mls/ hr TITRATE IV Last administered on 08/27/18 09:48; Admin Dose 37.5 MLS/HR; Start 08/27/18 at 00:30 Dopamine HCl/ Dextrose 250 ml @ 5.625 mls/ hr TITRATE IV Last administered on 08/27/18 18:00; Admin Dose 16.875 MLS/HR; Start 08/27/18 at 02:00 Aspirin (Aspirin) 81 mg DAILY PO Last administered on 08/31/18 09:55; Admin Dose 81 MG; Start 08/29/18 at 09:00 Famotidine (Pepcid) 20 mg Q12 PO Last administered on 08/31/18 09:54; Admin Dose 20 MG; Start 08/29/18 at 21:00 Meropenem/Sodium Chloride 50 ml @ 100 mls/hr Q12 IVPB Last administered on 08/31/18 09:54; Admin Dose 100 MLS/HR; Start 08/29/18 at 21:00 Albuterol (Proventil 0.083% (Neb)) 2.5 mg Q6H RESP THERAPY HHN Last administered on 08/31/18 10:14; Admin Dose 2.5 MG; Start 08/29/18 at 21:52 Ipratropium [place] (Atrovent 0.02% (Neb)) 0.5 mg Q6H RESP THERAPY HHN Last administered on 08/31/18 10:14; Admin Dose 0.5 MG; Start 08/29/18 at 21:53 Dextrose 1,000 ml @ 50 mls/hr Q20H IV Last administered on 08/30/18at 22:54; Admin Dose 75 MLS/HR; Start 08/30/18 at 07:30 Methylprednisolone Sodium Succinate (Solu-Medrol) 40 mg Q12 IV Last administered on 08/31/18at 09:54; Admin Dose 40 MG; Start 08/30/18 at 21:00 WENDY LOVE Aug 31, 2018 11:11
--- NOTE | 2018-08-31 12:30 | CONS ---
Assessment/Plan Assessment/Plan Assessment/Plan (Daily) Hypotension resolved off pressors Hypoxic respiratory failure s/p cardiac arrest pneumoperitoneum renal failure Leukocytosis Anemia Thrombocytopenia Transfer out of ICU Continue Antibiotics Continue Nebs as scheduled Continue GI and DVT Prophylaxis Consultation Date/Type/Reason Admit Date/Time Aug 27, 2018 at 00:03 Date/Time of Note DATE: 08/31/18 TIME: 12:27 Constitutional: no complaints Eyes: no complaints Cardiovascular: no complaints Past Medical History Medical History: other (COPD, BPH, schizophrenia) Home Meds Reported Medications Docusate Sodium* (Colace*) 100 Mg Capsule, 100 MG PO Q24H PRN for CONSTIPATION, #30 CAP 08/26/18 Polyethylene Glycol* (Miralax*) 17 Gm Powd.pack, 17 GM PO DAILY PRN for NEEDED, #30 PACKET 08/26/18 Acetaminophen* (Acetaminophen*) 325 Mg Tablet, 650 MG PO Q4H PRN for PAIN 1- 10/10, #30 TAB AND FEVER>101F 08/26/18 Sennosides* (Senna Lax*) 8.6 Mg Tablet, 1 TAB PO NEEDED, TAB 08/26/18 Mv,Minerals/Fa/Lycopene/Ginkgo (ONE DAILY MEN'S 50+ TABLET) 1 Each Tablet, 1 EACH PO DAILY, TAB 08/26/18 Divalproex Sodium* (Depakote*) 125 Mg Tablet.dr, 250 MG PO Q8H, #90 TAB 08/26/18 Quetiapine Fumarate* (Seroquel*) 50 Mg Tablet, 50 MG PO Q8H, TAB 08/26/18 Ipratropium-Albuterol (Ipratropium-Albuterol) 0.5-3 Mg/3 Ml Ampul.neb, 3 ML INHALATION Q4H PRN for WHEEZING AND SOB, #30 VIAL 08/26/18 Budesonide-Formoterol Fumarate* (Symbicort*) 160-4.5 Hfa.aer.ad, 2 PUFF INHALATION BID, #1 EACH 08/26/18 Medications Current Medications Ondansetron HCl (Zofran Inj) 4 mg Q6H PRN IV NAUSEA AND/OR VOMITING; Start 08/26/18 at 23:30 Acetaminophen (Tylenol Supp) 650 mg Q4H PRN [place] PAIN LEVEL 1-3 OR FEVER; Start 08/26/18 at 23:30 Morphine Sulfate (morphine) 2 mg Q4H PRN IV PAIN LEVEL 7-10; Start 08/26/18 at 23:30 Enoxaparin Sodium (Lovenox) 30 mg DAILY SC Last administered on 08/31/18 09:55; Admin Dose 30 MG; Start 08/27/18 at 09:00 Dopamine HCl/ Dextrose 250 ml @ 5.625 mls/ hr TITRATE IV Last administered on 08/27/18 18:00; Admin Dose 16.875 MLS/HR; Start 08/27/18 at 02:00 Aspirin (Aspirin) 81 mg DAILY PO Last administered on 08/31/18 09:55; Admin Dose 81 MG; Start 08/29/18 at 09:00 Famotidine (Pepcid) 20 mg Q12 PO Last administered on 08/31/18 09:54; Admin Dose 20 MG; Start 08/29/18 at 21:00 Meropenem/Sodium Chloride 50 ml @ 100 mls/hr Q12 IVPB Last administered on 08/31/18 09:54; Admin Dose 100 MLS/HR; Start 08/29/18 at 21:00 Albuterol (Proventil 0.083% (Neb)) 2.5 mg Q6H RESP THERAPY HHN Last administered on 08/31/18 10:14; Admin Dose 2.5 MG; Start 08/29/18 at 21:52 Ipratropium [place] (Atrovent 0.02% (Neb)) 0.5 mg Q6H RESP THERAPY HHN Last administered on 08/31/18 10:14; Admin Dose 0.5 MG; Start 08/29/18 at 21:53 Dextrose 1,000 ml @ 50 mls/hr Q20H IV Last administered on 08/30/18 22:54; Admin Dose 75 MLS/HR; Start 08/30/18 at 07:30 Methylprednisolone Sodium Succinate (Solu-Medrol) 40 mg Q12 IV Last administered on 08/31/18 09:54; Admin Dose 40 MG; Start 08/30/18 at 21:00 Allergies: Coded Allergies: No Known Allergy (Unverified , 08/26/18) Social History Smoking Status: Unknown if ever smoked Exam/Review of Systems Exam Vitals Vital Signs Date Temp Pulse Resp B/P (MAP) Pulse Ox O2 O2 Flow FiO2 Time Delivery Rate 08/31/18 65 12:00 08/31/18 95 Nasal 2.0 10:17 Cannula 08/31/18 134/72 09:30 (92) 08/31/18 98.0 08:00 08/29/18 50 15:30 Intake and Output 08/30/18 08/30/18 08/31/18 1515:00 23:00 07:00 IntakeIntake Total 765 ml 1485 ml 1675 ml OutputOutput Total 1550 ml 850 ml 1125 ml BalanceBalance -785 ml 635 ml 550 ml Constitutional: alert Neck: supple, non-tender Respiratory: clear to auscultation Cardiovascular: regular rate and rhythm (no m/r/g) Gastrointestinal: soft, nl liver, spleen Extremities: normal pulses Results Result Diagram: 08/31/18 0345 08/31/18 0345 Results 24hrs Laboratory Tests Test 08/31/18 03:45 White Blood Count 3.4 #L Red Blood Count 3.68 L Hemoglobin 10.3 L Hematocrit 33.1 L Mean Corpuscular Volume 89.9 Mean Corpuscular Hemoglobin 28.0 L Mean Corpuscular Hemoglobin Concent 31.1 L Red Cell Distribution Width 16.0 H Platelet Count 104 L Mean Platelet Volume 10.8 H Immature Granulocytes % 0.300 Neutrophils % 81.8 H Lymphocytes % 13.5 L Monocytes % 4.4 Eosinophils % 0.0 Basophils % 0.0 Nucleated Red Blood Cells % 0.0 Immature Granulocytes # 0.010 Neutrophils # 2.8 Lymphocytes # 0.5 L Monocytes # 0.2 L Eosinophils # 0.0 Basophils # 0.0 Nucleated Red Blood Cells # 0.0 Sodium Level 145 H Potassium Level 3.6 Chloride Level 109 Carbon Dioxide Level 28 Anion Gap 8 Blood Urea Nitrogen 36 H Creatinine 0.95 Est Glomerular Filtrat Rate mL/min > 60 Glucose Level 200 Calcium Level 8.8 Phosphorus Level 2.9 Magnesium Level 2.4 Total Bilirubin 0.0 L Direct Bilirubin 0.00 Indirect Bilirubin 0.0 Aspartate Amino Transf (AST/SGOT) 16 Alanine Aminotransferase (ALT/SGPT) 35 Alkaline Phosphatase 46 Total Protein 5.4 L Albumin 2.7 L Globulin 2.70 Albumin/Globulin Ratio 1.00 Medications Medication Current Medications Ondansetron HCl (Zofran Inj) 4 mg Q6H PRN IV NAUSEA AND/OR VOMITING; Start 08/26/18 at 23:30 Acetaminophen (Tylenol Supp) 650 mg Q4H PRN [place] PAIN LEVEL 1-3 OR FEVER; Start 08/26/18 at 23:30 Morphine Sulfate (morphine) 2 mg Q4H PRN IV PAIN LEVEL 7-10; Start 08/26/18 at 23:30 Enoxaparin Sodium (Lovenox) 30 mg DAILY SC Last administered on 08/31/18 09:55; Admin Dose 30 MG; Start 08/27/18 at 09:00 Dopamine HCl/ Dextrose 250 ml @ 5.625 mls/ hr TITRATE IV Last administered on 08/27/18 18:00; Admin Dose 16.875 MLS/HR; Start 08/27/18 at 02:00 Aspirin (Aspirin) 81 mg DAILY PO Last administered on 08/31/18 09:55; Admin Dose 81 MG; Start 08/29/18 at 09:00 Famotidine (Pepcid) 20 mg Q12 PO Last administered on 08/31/18 09:54; Admin Dose 20 MG; Start 08/29/18 at 21:00 Meropenem/Sodium Chloride 50 ml @ 100 mls/hr Q12 IVPB Last administered on 08/31/18 09:54; Admin Dose 100 MLS/HR; Start 08/29/18 at 21:00 Albuterol (Proventil 0.083% (Neb)) 2.5 mg Q6H RESP THERAPY HHN Last administered on 08/31/18 10:14; Admin Dose 2.5 MG; Start 08/29/18 at 21:52 Ipratropium [place] (Atrovent 0.02% (Neb)) 0.5 mg Q6H RESP THERAPY HHN Last administered on 08/31/18 10:14; Admin Dose 0.5 MG; Start 08/29/18 at 21:53 Dextrose 1,000 ml @ 50 mls/hr Q20H IV Last administered on 08/30/18 22:54; Admin Dose 75 MLS/HR; Start 08/30/18 at 07:30 Methylprednisolone Sodium Succinate (Solu-Medrol) 40 mg Q12 IV Last administered on 08/31/18 09:54; Admin Dose 40 MG; Start 08/30/18 at 21:00 NIMESH YA M.D. Aug 31, 2018 12:30
--- NOTE | 2018-08-31 14:52 | CONS ---
Consultation Date/Type/Reason Admit Date/Time Aug 27, 2018 at 00:03 Initial Consult Date SUBJECTIVE: Patient self extubated himself and also pulled chest tube out. Awake,afebrile, looks comfortable. VS: stable T: 98.2 LABS: reviewed. WBC- 3.4 CXR today: IMPRESSION: No alveolar pneumonia. Increased interstitial markings with confluence left pe rihilar mid lung and right lung base unchanged. Right pleural effusion. No significant change Microbiology: Blood cultures negative MRSA swab negative urine culture growing staph species Indwelling: Right IJ triple-lumen catheter endotracheal tube NG tube left chest tube, Sellers catheter Antimicrobials: Merrem Physical examination: GEN: Well-developed chronically ill-appearing fragile elderly man who is extubated now, in no distress. HENT: Head atraumatic normocephalic, sclera nonicteric vehicle mucosa dry, neck is supple PULM: chest rise symmetrical, breath sounds diminished bases. Heart: S1-S2. Abdomen soft bowel sounds present. Extremities cyanotic Assessment: 1. Septic shock 2. Bradycardia 3. Acute hypoxemic respiratory failure with questionable aspiration 4. Pneumoperitoneum of unclear etiology, no perforation per surgical note 5. Pancytopenia 5. Anemia 6. Non-ST elevation [place] 7. Status post cardiac arrest Plan: Stable status post self extubation. Continue current antbx treatment. Aspiration precautions. CXR noted. Requesting Provider: VIVIANA NOLAN MD Date/Time of Note DATE: 08/31/18 TIME: 14:48 Exam/Review of Systems Exam Vitals Vital Signs Date Temp Pulse Resp B/P (MAP) Pulse Ox O2 O2 Flow FiO2 Time Delivery Rate 08/31/18 67 20 141/80 95 Nasal 12:30 (100) Cannula 08/31/18 98.2 12:00 08/31/18 2.0 10:17 08/29/18 50 15:30 Intake and Output 08/30/18 08/30/18 08/31/18 1515:00 23:00 07:00 IntakeIntake Total 765 ml 1485 ml 1750 ml OutputOutput Total 1550 ml 850 ml 1125 ml BalanceBalance -785 ml 635 ml 625 ml Results Result Diagram: 08/31/18 0345 08/31/18 0345 Results 24hrs Laboratory Tests Test 08/31/18 03:45 White Blood Count 3.4 #L Red Blood Count 3.68 L Hemoglobin 10.3 L Hematocrit 33.1 L Mean Corpuscular Volume 89.9 Mean Corpuscular Hemoglobin 28.0 L Mean Corpuscular Hemoglobin Concent 31.1 L Red Cell Distribution Width 16.0 H Platelet Count 104 L Mean Platelet Volume 10.8 H Immature Granulocytes % 0.300 Neutrophils % 81.8 H Lymphocytes % 13.5 L Monocytes % 4.4 Eosinophils % 0.0 Basophils % 0.0 Nucleated Red Blood Cells % 0.0 Immature Granulocytes # 0.010 Neutrophils # 2.8 Lymphocytes # 0.5 L Monocytes # 0.2 L Eosinophils # 0.0 Basophils # 0.0 Nucleated Red Blood Cells # 0.0 Sodium Level 145 H Potassium Level 3.6 Chloride Level 109 Carbon Dioxide Level 28 Anion Gap 8 Blood Urea Nitrogen 36 H Creatinine 0.95 Est Glomerular Filtrat Rate mL/min > 60 Glucose Level 200 Calcium Level 8.8 Phosphorus Level 2.9 Magnesium Level 2.4 Total Bilirubin 0.0 L Direct Bilirubin 0.00 Indirect Bilirubin 0.0 Aspartate Amino Transf (AST/SGOT) 16 Alanine Aminotransferase (ALT/SGPT) 35 Alkaline Phosphatase 46 Total Protein 5.4 L Albumin 2.7 L Globulin 2.70 Albumin/Globulin Ratio 1.00 Medications Medication Current Medications Ondansetron HCl (Zofran Inj) 4 mg Q6H PRN IV NAUSEA AND/OR VOMITING; Start 08/26/18 at 23:30 Acetaminophen (Tylenol Supp) 650 mg Q4H PRN [place] PAIN LEVEL 1-3 OR FEVER; Start 08/26/18 at 23:30 Morphine Sulfate (morphine) 2 mg Q4H PRN [place] PAIN LEVEL 7-10; Start 08/26/18 at 23:30 Enoxaparin Sodium (Lovenox) 30 mg DAILY SC Last administered on 08/31/18at 09:55; Admin Dose 30 MG; Start 08/27/18 at 09:00 Dopamine HCl/ Dextrose 250 ml @ 5.625 mls/ hr TITRATE IV Last administered on 08/27/18at 18:00; Admin Dose 16.875 MLS/HR; Start 08/27/18 at 02:00 Aspirin (Aspirin) 81 mg DAILY PO Last administered on 08/31/18at 09:55; Admin Dose 81 MG; Start 08/29/18 at 09:00 Famotidine (Pepcid) 20 mg Q12 PO Last administered on 08/31/18 09:54; Admin Dose 20 MG; Start 08/29/18 at 21:00 Meropenem/Sodium Chloride 50 ml @ 100 mls/hr Q12 IVPB Last administered on 08/31/18 09:54; Admin Dose 100 MLS/HR; Start 08/29/18 at 21:00 Albuterol (Proventil 0.083% (Neb)) 2.5 mg Q6H RESP THERAPY HHN Last administered on 08/31/18 10:14; Admin Dose 2.5 MG; Start 08/29/18 at 21:52 Ipratropium [place] (Atrovent 0.02% (Neb)) 0.5 mg Q6H RESP THERAPY HHN Last administered on 08/31/18 10:14; Admin Dose 0.5 MG; Start 08/29/18 at 21:53 Dextrose 1,000 ml @ 50 mls/hr Q20H IV Last administered on 08/30/18 22:54; Admin Dose 75 MLS/HR; Start 08/30/18 at 07:30 Methylprednisolone Sodium Succinate (Solu-Medrol) 40 mg Q12 IV Last adminis tered on 08/31/18 09:54; Admin Dose 40 MG; Start 08/30/18 at 21:00 EUGENIE HUBBARD Aug 31, 2018 14:52
[2018-09-01] MEDS: ZOLPIDEM 5 MG TAB PO PRN ×2 (00:08→21:42)
[2018-09-01] MEDS: ALBUTEROL 0.083% (NEB) 2.5 MG/3 ML AMP HHN SCH ×4 (02:27→19:19)
[2018-09-01] MEDS: IPRATROPIUM (NEB) 0.5 MG/2.5 ML AMP HHN SCH ×4 (02:27→19:19)
[2018-09-01 02:32] VITALS: BP 135/80; PULSE 60; RESP 18
[2018-09-01 08:05] VITALS: BP 140/77; PULSE 59; RESP 18
[2018-09-01] MEDS: METHYLPREDNISOLONE 40 MG INJ IV SCH ×2 (08:09→20:09)
[2018-09-01] MEDS: MEROPENEM 1 GM/50ML(PMX) 50 ML IVPB SCH (08:10)
[2018-09-01] MEDS: FAMOTIDINE 20 MG TAB PO SCH ×2 (08:10→20:09)
[2018-09-01] MEDS: ASPIRIN 81 MG TAB PO SCH (08:10)
[2018-09-01] MEDS: ENOXAPARIN 30 MG/0.3 ML SYG SC SCH (08:19)
--- NOTE | 2018-09-01 10:41 | CONS ---
Assessment/Plan Assessment/Plan Assessment/Plan (Daily) Assessment recommendations; 1. Patient admitted with cardiac arrest status post CPR with marked overall clinical improvement. 2. Pneumoperitoneum of unknown etiology. Patient has not required any intervention, with marked overall clinical improvement. Abdomen exam is totally benign. 3. Status post self removal of left-sided chest tube. 4. Advanced emphysema. 5. Possibly some element of pneumonia with significant clinical improvement as well. Consider stopping antibiotics.. Consider discharge. Consultation Date/Type/Reason Admit Date/Time Aug 27, 2018 at 00:03 Initial Consult Date 08/27/18 Type of Consult Pulmonary/critical care Patient is a 68-year-old male who is a [place] resident was sent over to the hospital because of hypothermia and altered mental status. In the emergency room, patient developed cardiac arrest requiring CPR and intubation. In the course of workup the patient also required a chest tube placement on the left side. CT imaging of the abdomen showed pneumoperitoneum with possibly perforated viscus. By the time I saw the patient in ICU, patient is orally intubated and sedated. History was obtained from medical records. Past medical history; essentially unremarkable except for possibly COPD. Medications; reviewed. Patient is currently on dopamine at 6 mics per kilogram per minute, Levophed 20 mics per minute, propofol 25 mics per kilogram per minute. Other medications were also reviewed. Allergies; none. Social history; not available. Family history and occupational history is also not available. Review of system; unable to be obtained. General exam; elderly male, orally intubated, sedated, currently in no distress. Requesting Provider: VIVIANA NOLAN MD Date/Time of Note DATE: 09/01/18 TIME: 10:39 24 HR Interval Summary Free Text/Dictation Patient's condition is stable. Has been transferred out of ICU to medical floor. Patient denies any shortness of breath at rest. Any coughing or wheezing. General exam; elderly male, awake alert, currently no distress. Laying comf ortably in bed. Exam/Review of Systems Exam Vitals Vital Signs Date Temp Pulse Resp B/P (MAP) Pulse Ox O2 O2 Flow FiO2 Time Delivery Rate 09/01/18 97.8 59 18 140/77 99 08:05 (98) 09/01/18 Nasal 3.0 08:00 Cannula 08/29/18 50 15:30 Intake and Output 08/31/18 08/31/18 09/01/18 1515:00 23:00 07:00 IntakeIntake Total 745 ml 950 ml 840 ml OutputOutput Total 880 ml 3450 ml BalanceBalance -135 ml 950 ml -2610 ml Exam HEENT exam; supple neck, no JVD. No lymphadenopathy. Midline trachea. No thyromegaly. No neck masses. Chest exam; diminished but clear breath sounds. S1-S2 audible, no murmurs. Regular rhythm. Abdomen exam; soft, no organomegaly. Bowel sounds audible. Extremity exam; no peripheral edema clubbing. [employer]IDENT[employer] HOU[employer]KEE[employer] exam; no focal deficit. Results Result Diagram: 08/31/18 0345 09/01/18 0444 Results 24hrs Laboratory Tests Test 09/01/18 04:44 Sodium Level 145 H Potassium Level 4.0 Chloride Level 108 Carbon Dioxide Level 30 Anion Gap 7 Blood Urea Nitrogen 31 H Creatinine 0.75 Est Glomerular Filtrat Rate mL/min > 60 Glucose Level 133 # Calcium Level 8.9 Phosphorus Level 2.8 Magnesium Level 2.3 Medications Medication Current Medications Ondansetron HCl (Zofran Inj) 4 mg Q6H PRN IV NAUSEA AND/OR VOMITING; Start 08/26/18 at 23:30 Acetaminophen (Tylenol Supp) 650 mg Q4H PRN [place] PAIN LEVEL 1-3 OR FEVER; Start 08/26/18 at 23:30 Morphine Sulfate (morphine) 2 mg Q4H PRN [place] PAIN LEVEL 7-10; Start 08/26/18 at 23:30 Enoxaparin Sodium (Lovenox) 30 mg DAILY SC Last administered on 09/01/18at 08: 19; Admin Dose 30 MG; Start 08/27/18 at 09:00 Dopamine HCl/ Dextrose 250 ml @ 5.625 mls/ hr TITRATE IV Last administered on 08/27/18at 18:00; Admin Dose 16.875 MLS/HR; Start 08/27/18 at 02:00 Aspirin (Aspirin) 81 mg DAILY PO Last administered on 09/01/18at 08:10; Admin Dose 81 MG; Start 08/29/18 at 09:00 Famotidine (Pepcid) 20 mg Q12 PO Last administered on 09/01/18at 08:10; Admin Dose 20 MG; Start 08/29/18 at 21:00 Meropenem/Sodium Chloride 50 ml @ 100 mls/hr Q12 IVPB Last administered on 08:10; Admin Dose 100 MLS/HR; Start 08/29/18 at 21:00 Albuterol (Proventil 0.083% (Neb)) 2.5 mg Q6H RESP THERAPY HHN Last administered on 09/01/18 07:29; Admin Dose 2.5 MG; Start 08/29/18 at 21:52 Ipratropium [place] (Atrovent 0.02% (Neb)) 0.5 mg Q6H RESP THERAPY HHN Last administered on 09/01/18 07:30; Admin Dose 0.5 MG; Start 08/29/18 at 21:53 Methylprednisolone Sodium Succinate (Solu-Medrol) 40 mg Q12 IV Last administered on 09/01/18 08:09; Admin Dose 40 MG; Start 08/30/18 at 21:00 Zolpidem Tartrate (Ambien) 5 mg HS PRN PO INSOMNIA Last administered on 09/01/18at 00:08; Admin Dose 5 MG; Start 09/01/18 at 00:00 GAMALIEL BASILIO Sep 01, 2018 10:41
--- NOTE | 2018-09-01 11:16 | PN ---
DATE: 09/01/2018 SUBJECTIVE: The patient is stable, no events overnight. No fevers, chills, nausea, vomiting. OBJECTIVE: VITAL SIGNS: Blood pressure is 135/80, respiration 18, pulse 60, temperature 97.5. HEENT: Head is normocephalic. NECK: Supple. HEART: Regular rate. LUNGS: Show diminished breath sounds at the base. ABDOMEN: Soft, nontender to palpation without rebound or guarding. EXTREMITIES: Negative for clubbing, cyanosis, no edema. DERMATOLOGIC: No rashes. MUSCULOSKELETAL: No joint effusions. NEUROLOGIC: No change in exam. MEDICATIONS: The patient's medications have been reviewed. LABORATORY DATA: Shows sodium 145, BUN 31, creatinine 0.75. White count 3.4, hemoglobin 10.3, plate let count is 104. ASSESSMENT AND PLAN: 1. Nonoliguric acute kidney injury with previously unknown baseline creatinine. Etiology of acute k idney injury is secondary to hemodynamics. Patient's renal function has improved with supportive car e. At this point, continue current treatment plan, supportive care, renally dose all meds. 2. Hypernatremia. The patient's sodium levels are improving. Continue to encourage free water inta ke. The patient's D5 water has been discontinued. 3. Anemia. Monitor hemoglobin and hematocrit levels. 4. Mineral bone disorder. Monitor calcium and phosphorus levels. 5. Respiratory failure. The patient is status post extubation, currently stable on nasal cannula. Continue to monitor. 6. Sepsis, status post shock. Etiology secondary to pneumonia. The patient is completing antibioti c course. 7. Status post pneumothorax. 8. Pneumoperitoneum. Continue to monitor. 9. Status post cardiac arrest. 10. Encephalopathy, resolving. Dictated By: JOE BLACK DO NR/NTS Conf#: [id number] DID#: [id number] CC: WENDY LOVE MD; KHUSHI PATTON MD; VIVIANA NOLAN MD;*EndCC*
--- NOTE | 2018-09-01 12:57 | CONS ---
Consultation Date/Type/Reason Admit Date/Time Aug 27, 2018 at 00:03 Initial Consult Date SUBJECTIVE: Patient is awake,afebrile, looks comfortable. VS: stable T: 97.8 LABS: reviewed. CXR today: IMPRESSION: No alveolar pneumonia. Increased interstitial markings with confluence left perihilar mid lung and right lung base unchanged. Right pleural effusion. No significant change Microbiology: Blood cultures negative MRSA swab negative urine culture growing staph species GRAM STAIN Final POLYMORPH. LEUKOCYTE 1+ EPITHELIAL CELLS RARE GRAM POS COCCI IN PAIRS RARE RESPIRATORY CULTURE Final Organism 1 ADRIENNE ALBICANS QUANTITY RARE RINE CULTURE Final Organism 1 COAGULASE NEGATIVE STAPH COLONY COUNT <10,000 CFU/ml COAG NEG M.I.C. RX --------- --- CEFAZOLIN R CIPROFLOXACIN 4 R DOXYCYCLINE S LEVOFLOXACIN 4 R NITROFURANTOIN <=16 S OXACILLIN >=4 R PENICILLIN-G >=0.5 R RIFAMPIN <=0.5 S VANCOMYCIN 2 S TRIMETHOPRIM/SULFAMETHOXAZOLE 80 R Indwelling: Right IJ triple-lumen catheter endotracheal tube NG tube left chest tube, Sellers catheter Antimicrobials: Merrem Physical examination: GEN: Well-developed chronically ill-appearing fragile elderly man who is extubated now, in no distress. HENT: Head atraumatic normocephalic, sclera nonicteric vehicle mucosa dry, neck is supple PULM: chest rise symmetrical, breath sounds diminished bases. Heart: S1-S2. Abdomen soft bowel sounds present. Extremities cyanotic Assessment: 1. Septic shock 2. Bradycardia 3. Acute hypoxemic respiratory failure with questionable aspiration 4. Pneumoperitoneum of unclear etiology, no perforation per surgical note 5. Pancytopenia 5. Anemia 6. Non-ST elevation [place] 7. Status post cardiac arrest Plan: Stable status post self extubation. Will DC Merrem at this time and monitor off of antbx. Aspiration precautions. Pulm recommendations noted. Requesting Provider: VIVIANA NOLAN MD Date/Time of Note DATE: 09/01/18 TIME: 12:54 Exam/Review of Systems Exam Vitals Vital Signs Date Temp Pulse Resp B/P (MAP) Pulse Ox O2 O2 Flow FiO2 Time Delivery Rate 09/01/18 97.8 59 18 140/77 99 08:05 (98) 09/01/18 Nasal 3.0 08:00 Cannula 08/29/18 50 15:30 Intake and Output 08/31/18 08/31/18 09/01/18 1414:59 22:59 06:59 IntakeIntake Total 920 ml 950 ml 840 ml OutputOutput Total 1030 ml 3450 ml BalanceBalance -110 ml 950 ml -2610 ml Results Result Diagram: 08/31/18 0345 09/01/18 0444 Results 24hrs Laboratory Tests Test 09/01/18 04:44 Sodium Level 145 H Potassium Level 4.0 Chloride Level 108 Carbon Dioxide Level 30 Anion Gap 7 Blood Urea Nitrogen 31 H Creatinine 0.75 Est Glomerular Filtrat Rate mL/min > 60 Glucose Level 133 # Calcium Level 8.9 Phosphorus Level 2.8 Magnesium Level 2.3 Medications Medication Current Medications Ondansetron HCl (Zofran Inj) 4 mg Q6H PRN IV NAUSEA AND/OR VOMITING; Start 08/26/18 at 23:30 Acetaminophen (Tylenol Supp) 650 mg Q4H PRN [place] PAIN LEVEL 1-3 OR FEVER; Start 08/26/18 at 23:30 Morphine Sulfate (morphine) 2 mg Q4H PRN IV PAIN LEVEL 7-10; Start 08/26/18 at 23:30 Enoxaparin Sodium (Lovenox) 30 mg DAILY SC Last administered on 09/01/18at 08:19; Admin Dose 30 MG; Start 08/27/18 at 09:00 Dopamine HCl/ Dextrose 250 ml @ 5.625 mls/ hr TITRATE IV Last administered on 08/27/18at 18:00; Admin Dose 16.875 MLS/HR; Start 08/27/18 at 02:00 Aspirin (Aspirin) 81 mg DAILY PO Last administered on 09/01/18at 08:10; Admin Dose 81 MG; Start 08/29/18 at 09:00 Famotidine (Pepcid) 20 mg Q12 PO Last administered on 09/01/18at 08:10; Admin Dose 20 MG; Start 08/29/18 at 21:00 Meropenem/Sodium Chloride 50 ml @ 100 mls/hr Q12 IVPB Last administered on 09/01/18at 08:10; Admin Dose 100 MLS/HR; Start 08/29/18 at 21:00 Albuterol (Proventil 0.083% (Neb)) 2.5 mg Q6H RESP THERAPY HHN Last administered on 09/01/18 07:29; Admin Dose 2.5 MG; Start 08/29/18 at 21:52 Ipratropium [place] (Atrovent 0.02% (Neb)) 0.5 mg Q6H RESP THERAPY HHN Last administered on 09/01/18 07:30; Admin Dose 0.5 MG; Start 08/29/18 at 21:53 Methylprednisolone Sodium Succinate (Solu-Medrol) 40 mg Q12 IV Last administered on 09/01/18 08:09; Admin Dose 40 MG; Start 08/30/18 at 21:00 Zolpidem Tartrate (Ambien) 5 mg HS PRN PO INSOMNIA Last administered on 09/01/18 00:08; Admin Dose 5 MG; Start 09/01/18 at 00:00 EUGENIE HUBBARD Sep 01, 2018 12:57
--- NOTE | 2018-09-01 13:41 | PN ---
Date/Time of Note Date/Time of Note DATE: 09/01/18 TIME: 13:40 Assessment/Plan VTE Prophylaxis Risk score (from [facility])>0 risk: 11 SCD applied (from Ns): Yes Pharmacological prophylaxis: LMWH Lines/Catheters IV [facility]ter Type ([facility] Central Line Central line still needed: Yes Urinary Cath still in place: Yes Reason Cath still needed: skin wounds contaminated by urine Assessment/Plan Hospital Course -Sepsis with shock, continue broad-spectrum antibiotics, IV fluids, pressors, ICU care. Dr. Sutton is following in infection disease consultation. -Status post cardiac arrest. Dr. Hernández is following in cardiology consultation. -Left-sided pneumothorax, status post left side chest tube placement. -Acute respiratory failure, continue ventilatory support bronchodilators. Dr. Molina is following in pulmonology consultation. -Pneumoperitoneum most likely due to cardiac arrest. Dr. Rivas is following in general surgery consultation. -Left lower lobe pneumonia -Severe emphysema -JEREMÍAS with possible chronic kidney disease. Dr Arvizu is following in nephrology consultation. Result Diagram: 08/31/18 0345 09/01/18 0444 Results 24hrs Laboratory Tests Test 09/01/18 04:44 Sodium Level 145 H Potassium Level 4.0 Chloride Level 108 Carbon Dioxide Level 30 Anion Gap 7 Blood Urea Nitrogen 31 H Creatinine 0.75 Est Glomerular Filtrat Rate mL/min > 60 Glucose Level 133 # Calcium Level 8.9 Phosphorus Level 2.8 Magnesium Level 2.3 Subjective 24 Hr Interval Summary Free Text/Dictation Patient doing well, has no complaints Exam/Review of Systems Exam Vitals Vital Signs Date Temp Pulse Resp B/P (MAP) Pulse Ox O2 O2 Flow FiO2 Time Delivery Rate 09/01/18 98 2.0 13:27 09/01/18 62 20 Nasal 13:27 Cannula 09/01/18 97.8 140/77 08:05 (98) 08/29/18 50 15:30 Intake and Output 08/31/18 08/31/18 09/01/18 1515:00 23:00 07:00 IntakeIntake Total 745 ml 950 ml 840 ml OutputOutput Total 880 ml 3450 ml BalanceBalance -135 ml 950 ml -2610 ml Constitutional: well developed Head: normocephalic, atraumatic Neck: supple Respiratory: diminished breath sounds Cardiovascular: regular rate and rhythm Gastrointestinal: soft, non-tender Extremities: normal pulses Results Results 24hrs Laboratory Tests Test 09/01/18 04:44 Sodium Level 145 H Potassium Level 4.0 Chloride Level 108 Carbon Dioxide Level 30 Anion Gap 7 Blood Urea Nitrogen 31 H Creatinine 0.75 Est Glomerular Filtrat Rate mL/min > 60 Glucose Level 133 # Calcium Level 8.9 Phosphorus Level 2.8 Magnesium Level 2.3 Medications Medication Current Medications Ondansetron HCl (Zofran Inj) 4 mg Q6H PRN IV NAUSEA AND/OR VOMITING; Start 08/26/18 at 23:30 Acetaminophen (Tylenol Supp) 650 mg Q4H PRN [place] PAIN LEVEL 1-3 OR FEVER; Start 08/26/18 at 23:30 Morphine Sulfate (morphine) 2 mg Q4H PRN IV PAIN LEVEL 7-10; Start 08/26/18 at 23:30 Enoxaparin Sodium (Lovenox) 30 mg DAILY SC Last administered on 09/01/18 08: 19; Admin Dose 30 MG; Start 08/27/18 at 09:00 Dopamine HCl/ Dextrose 250 ml @ 5.625 mls/ hr TITRATE IV Last administered on 08/27/18 18:00; Admin Dose 16.875 MLS/HR; Start 08/27/18 at 02:00 Aspirin (Aspirin) 81 mg DAILY PO Last administered on 09/01/18 08:10; Admin Dose 81 MG; Start 08/29/18 at 09:00 Famotidine (Pepcid) 20 mg Q12 PO Last administered on 09/01/18 08:10; Admin Dose 20 MG; Start 08/29/18 at 21:00 Albuterol (Proventil 0.083% (Neb)) 2.5 mg Q6H RESP THERAPY HHN Last administe red on 09/01/18 13:27; Admin Dose 2.5 MG; Start 08/29/18 at 21:52 Ipratropium [place] (Atrovent 0.02% (Neb)) 0.5 mg Q6H RESP THERAPY HHN Last administered on 09/01/18 13:27; Admin Dose 0.5 MG; Start 08/29/18 at 21:53 Methylprednisolone Sodium Succinate (Solu-Medrol) 40 mg Q12 IV Last administer ed on 1/27/19at 08:09; Admin Dose 40 MG; Start 08/30/18 at 21:00 Zolpidem Tartrate (Ambien) 5 mg HS PRN PO INSOMNIA Last administered on 09/01/18at 00:08; Admin Dose 5 MG; Start 09/01/18 at 00:00 WENDY LOVE Sep 01, 2018 13:41
[2018-09-01 14:19] VITALS: BP 153/89; PULSE 65; RESP 19
--- NOTE | 2018-09-01 14:57 | CONS ---
Assessment/Plan Assessment/Plan Assessment/Plan (Daily) Hypoxic respiratory failure s/p cardiac arrest Pneumoperitoneum renal failure Anemia Thrombocytopenia Hypertensive Started Norvasc Continue Antibiotics Continue Nebs as scheduled Continue GI and DVT Prophylaxis Consultation Date/Type/Reason Admit Date/Time Aug 27, 2018 at 00:03 Initial Consult Date 08/27/18 Type of Consult Cardiology Requesting Provider: VIVIANA NOLAN MD Date/Time of Note DATE: 09/01/18 TIME: 14:55 Exam/Review of Systems Vital Signs Vitals Vital Signs Date Temp Pulse Resp B/P (MAP) Pulse Ox O2 O2 Flow FiO2 Time Delivery Rate 09/01/18 97.6 65 19 153/89 95 14:19 (110) 09/01/18 2.0 13:27 09/01/18 Nasal 13:27 Cannula 08/29/18 50 15:30 Intake and Output 08/31/18 08/31/18 09/01/18 1414:59 22:59 06:59 IntakeIntake Total 920 ml 950 ml 840 ml OutputOutput Total 1030 ml 3450 ml BalanceBalance -110 ml 950 ml -2610 ml Exam Constitutional: alert, oriented Respiratory: clear to auscultation Cardiovascular: regular rate and rhythm (no m/r/g) Gastrointestinal: soft, nl liver, spleen Extremities: normal pulses (no edema) Labs Result Diagram: 08/31/18 0345 09/01/18 0444 Results 24hrs Laboratory Tests Test 09/01/18 04:44 Sodium Level 145 H Potassium Level 4.0 Chloride Level 108 Carbon Dioxide Level 30 Anion Gap 7 Blood Urea Nitrogen 31 H Creatinine 0.75 Est Glomerular Filtrat Rate mL/min > 60 Glucose Level 133 # Calcium Level 8.9 Phosphorus Level 2.8 Magnesium Level 2.3 Medications Medications Current Medications Ondansetron HCl (Zofran Inj) 4 mg Q6H PRN IV NAUSEA AND/OR VOMITING; Start 08/26/18 at 23:30 Acetaminophen (Tylenol Supp) 650 mg Q4H PRN [place] PAIN LEVEL 1-3 OR FEVER; Start 08/26/18 at 23:30 Morphine Sulfate (morphine) 2 mg Q4H PRN IV PAIN LEVEL 7-10; Start 08/26/18 at 23:30 Enoxaparin Sodium (Lovenox) 30 mg DAILY SC Last administered on 09/01/18 08:19; Admin Dose 30 MG; Start 08/27/18 at 09:00 Dopamine HCl/ Dextrose 250 ml @ 5.625 mls/ hr TITRATE IV Last administered on 08/27/18 18:00; Admin Dose 16.875 MLS/HR; Start 08/27/18 at 02:00 Aspirin (Aspirin) 81 mg DAILY PO Last administered on 09/01/18 08:10; Admin Do se 81 MG; Start 08/29/18 at 09:00 Famotidine (Pepcid) 20 mg Q12 PO Last administered on 09/01/18 08:10; Admin Dose 20 MG; Start 08/29/18 at 21:00 Albuterol (Proventil 0.083% (Neb)) 2.5 mg Q6H RESP THERAPY HHN Last administered on 09/01/18 13:27; Admin Dose 2.5 MG; Start 08/29/18 at 21:52 Ipratropium [place] (Atrovent 0.02% (Neb)) 0.5 mg Q6H RESP THERAPY HHN Last administered on 09/01/18 13:27; Admin Dose 0.5 MG; Start 08/29/18 at 21:53 Methylprednisolone Sodium Succinate (Solu-Medrol) 40 mg Q12 IV Last administered on 09/01/18 08:09; Admin Dose 40 MG; Start 08/30/18 at 21:00 Zolpidem Tartrate (Ambien) 5 mg HS PRN PO INSOMNIA Last administered on 09/01/18 00:08; Admin Dose 5 MG; Start 09/01/18 at 00:00 NIMESH YA M.D. Sep 01, 2018 14:57
[2018-09-01] MEDS: AMLODIPINE 10 MG TAB PO SCH (15:16)
[2018-09-01 19:50] VITALS: BP 133/78; PULSE 76; RESP 18
[2018-09-01] MEDS: GUAIFENESIN/DM 5ML CUP PO PRN (20:09)
[2018-09-01] MEDS: morphine 4 MG/ML VIAL IV PRN (20:11)
[2018-09-02] MEDS: morphine 4 MG/ML VIAL IV PRN (00:35)
[2018-09-02] MEDS: ALBUTEROL 0.083% (NEB) 2.5 MG/3 ML AMP HHN SCH ×4 (01:10→20:00)
[2018-09-02] MEDS: IPRATROPIUM (NEB) 0.5 MG/2.5 ML AMP HHN SCH ×4 (01:10→20:00)
[2018-09-02 01:36] VITALS: BP 136/75; PULSE 61; RESP 18
[2018-09-02] MEDS: GUAIFENESIN/DM 5ML CUP PO PRN (04:59)
[2018-09-02 07:58] VITALS: BP 139/83; PULSE 63; RESP 20
[2018-09-02] MEDS: FAMOTIDINE 20 MG TAB PO SCH ×2 (08:25→20:18)
[2018-09-02] MEDS: AMLODIPINE 10 MG TAB PO SCH (08:25)
[2018-09-02] MEDS: METHYLPREDNISOLONE 40 MG INJ IV SCH ×2 (08:25→20:18)
[2018-09-02] MEDS: ASPIRIN 81 MG TAB PO SCH (08:25)
[2018-09-02] MEDS: ENOXAPARIN 30 MG/0.3 ML SYG SC SCH (08:27)
--- NOTE | 2018-09-02 08:42 | PN ---
DATE: 09/02/2018 SUBJECTIVE: The patient is stable, no events overnight. No fevers, chills, nausea, or vomiting. OBJECTIVE: VITAL SIGNS: Blood pressure is 139/83, respirations 20, pulse 63, temperature 98.3. HEENT: Head is normocephalic. NECK: Supple. HEART: Regular rate. LUNGS: Show diminished breath sounds at the base. ABDOMEN: Soft, nontender to palpation without rebound or guarding. EXTREMITIES: Negative for clubbing, cyanosis, no edema. DERMATOLOGIC: No rashes. MUSCULOSKELETAL: No joint effusion. NEUROLOGIC: No change in exam. MEDICATIONS: Reviewed. LABORATORY DATA: Shows sodium 145, potassium 4.3, chloride is 103, BUN 26, creatinine 0.73. White c ount 3.4, hemoglobin 10.3, platelet count is 104. ASSESSMENT AND PLAN: 1. Nonoliguric acute kidney injury with unknown baseline creatinine. Etiology of acute kidney injur y is secondary to hemodynamics. Renal function is improved. Continue current treatment plans, suppo rtive care, renally dose all medicines. 2. Hypernatremia. The patient's sodium levels remain elevated but stable. We will continue to enco urage free water intake. 3. Anemia. Continue to monitor hemoglobin and hematocrit levels. 4. Mineral bone disorder. Monitor calcium and phosphorus levels. 5. Status post respiratory failure. 6. Sepsis, status post shock. The patient is completing antibiotic course. 7. Status post cardiac arrest. 8. Encephalopathy, resolving. 9. Status post pneumothorax. Dictated By: JOE BLACK DO NR/NTS Conf#: [id number] DID#: [id number] CC: WENDY LOVE MD; VIVIANA NOLAN MD; KHUSHI PATTON MD;*EndCC*
[2018-09-02 13:59] VITALS: BP 143/91; PULSE 65; RESP 20
--- NOTE | 2018-09-02 14:13 | CONS ---
Assessment/Plan Assessment/Plan Hospital Course (Demo Recall) Alert denies pain looks comfortable no fevers overnight. No labs. Patient is off antibiotics, remains on Solu-Medrol. Physical examination: Well-developed chronically ill-appearing fragile elderly man who is intubated sedated in no distress. Head atraumatic normocephalic sclera nonicteric vehicle mucosa dry neck is supple chest rise symmetrical breath sounds diminished bases. Heart: S1-S2. Abdomen soft bowel sounds present. Extremities cyanotic Assessment: 1. S/p septic shock 2. Bradycardia 3. Status post acute hypoxemic respiratory failure 4. Pneumoperitoneum of unclear etiology, no perforation per surgical note 5. Pancytopenia 5. Anemia 6. Non-ST elevation [place] 7. Status post cardiac arrest Plan: Patient remained stable, continue present care, observe off antibiotics Consultation Date/Type/Reason Admit Date/Time Aug 27, 2018 at 00:03 Initial Consult Date 08/27/18 Type of Consult ID Requesting Provider: VIVIANA NOLAN MD Date/Time of Note DATE: 09/02/18 TIME: 14:12 Exam/Review of Systems Exam Vitals Vital Signs Date Temp Pulse Resp B/P (MAP) Pulse Ox O2 O2 Flow FiO2 Time Delivery Rate 09/02/18 74 20 94 Nasal 3.0 13:59 Cannula 09/02/18 97.4 143/91 13:59 (108) 08/29/18 50 15:30 Intake and Output 09/01/18 09/01/18 09/02/18 1515:00 23:00 07:00 IntakeIntake Total 1280 ml 720 ml 1780 ml OutputOutput Total 900 ml 3600 ml BalanceBalance 1280 ml -180 ml -1820 ml Results Result Diagram: 08/31/18 0345 09/02/18 0508 Results 24hrs Laboratory Tests Test 09/02/18 05:08 Sodium Level 145 H Potassium Level 4.3 Chloride Level 103 Carbon Dioxide Level 36 H Anion Gap 6 Blood Urea Nitrogen 26 H Creatinine 0.73 Est Glomerular Filtrat Rate mL/min > 60 Glucose Level 101 Calcium Level 9.1 Phosphorus Level 2.8 Magnesium Level 2.2 Medications Medication Current Medications Ondansetron HCl (Zofran Inj) 4 mg Q6H PRN IV NAUSEA AND/OR VOMITING; Start 08/26/18 at 23:30 Acetaminophen (Tylenol Supp) 650 mg Q4H PRN [place] PAIN LEVEL 1-3 OR FEVER; Start 08/26/18 at 23:30 Enoxaparin Sodium (Lovenox) 30 mg DAILY SC Last administered on 09/02/18 08:27; Admin Dose 30 MG; Start 08/27/18 at 09:00 Aspirin (Aspirin) 81 mg DAILY PO Last administered on 09/02/18 08:25; Admin Dose 81 MG; Start 08/29/18 at 09:00 Famotidine (Pepcid) 20 mg Q12 PO Last administered on 09/02/18 08:25; Admin Dose 20 MG; Start 08/29/18 at 21:00 Albuterol (Proventil 0.083% (Neb)) 2.5 mg Q6H RESP THERAPY HHN Last administered on 09/02/18 13:59; Admin Dose 2.5 MG; Start 08/29/18 at 21:52 Ipratropium [place] (Atrovent 0.02% (Neb)) 0.5 mg Q6H RESP THERAPY HHN Last administered on 09/02/18 13:59; Admin Dose 0.5 MG; Start 08/29/18 at 21:53 Methylprednisolone Sodium Succinate (Solu-Medrol) 40 mg Q12 IV Last administered on 09/02/18 08:25; Admin Dose 40 MG; Start 08/30/18 at 21:00 Zolpidem Tartrate (Ambien) 5 mg HS PRN PO INSOMNIA Last administered on 09/01/18 21:42; Admin Dose 5 MG; Start 09/01/18 at 00:00 Amlodipine Besylate (Norvasc) 10 mg DAILY PO Last administered on 09/02/18 08:25; Admin Dose 10 MG; Start 09/01/18 at 15:00 Guaifenesin/ Dextromethorphan (Robitussin Dm Liquid Cup) 5 ml Q6H PRN PO COUGH Last administered on 09/02/18 04:59; Admin Dose 5 ML; Start 09/01/18 at 20:00 Morphine Sulfate (morphine) 2 mg Q4H PRN [place] PAIN LEVEL 7-10 Last administered on 09/02/18 00:35; Admin Dose 2 MG; Start 09/01/18 at 20:30 AALIYAH MEZA NP Sep 02, 2018 14:13
[2018-09-02] MEDS: BALSAM PERU/CASTOR OIL 60 GM TUBE TOP SCH (15:55)
--- NOTE | 2018-09-02 16:53 | PN ---
Date/Time of Note Date/Time of Note DATE: 09/02/18 TIME: 16:48 Assessment/Plan VTE Prophylaxis Risk score (from Ns)>0 risk: 7 SCD applied (from Ns): Yes Pharmacological prophylaxis: LMWH Lines/Catheters [facility]from [facility] Central Line Central line still needed: Yes Urinary Cath still in place: Yes Reason Cath still needed: urinary retention Assessment/Plan Hospital Course Patient is awake alert and oriented to name and situation, continues on supplemental oxygen via nasal cannula. Patient self extubated himself and pull out chest tube while in intensive care unit. Patient is currently on medical surgical floor. Tolerates pured diet well, continue physical therapy. Assessment/Plan -Sepsis with shock, resolving. Dr. Sutton is following in infection disease consultation. -Status post cardiac arrest. Dr. Hernández is following in cardiology consultation. -Left-sided pneumothorax, status post left side chest tube placement, s/p self d/c CT. -Acute respiratory failure, continue ventilatory support bronchodilators. Dr. Molina is following in pulmonology consultation. -Pneumoperitoneum most likely due to cardiac arrest. Dr. Rivas is following in general surgery consultation. -Left lower lobe pneumonia -Severe emphysema -JEREMÍAS with possible chronic kidney disease. Dr Arvizu is following in nephrology consultation. Further recommendations based on clinical course. Plan of care discussed with Dr. Juarez. Result Diagram: 08/31/18 0345 09/02/18 0508 Results 24hrs Laboratory Tests Test 09/02/18 05:08 Sodium Level 145 H Potassium Level 4.3 Chloride Level 103 Carbon Dioxide Level 36 H Anion Gap 6 Blood Urea Nitrogen 26 H Creatinine 0.73 Est Glomerular Filtrat Rate mL/min > 60 Glucose Level 101 Calcium Level 9.1 Phosphorus Level 2.8 Magnesium Level 2.2 Exam/Review of Systems Exam Vitals Vital Signs Date Temp Pulse Resp B/P (MAP) Pulse Ox O2 O2 Flow FiO2 Time Delivery Rate 09/02/18 74 20 94 Nasal 3.0 13:59 Cannula 09/02/18 97.4 143/91 13:59 (108) 08/29/18 50 15:30 Intake and Output 09/01/18 09/01/18 09/02/18 1515:00 23:00 07:00 IntakeIntake Total 1280 ml 720 ml 1780 ml OutputOutput Total 900 ml 3600 ml BalanceBalance 1280 ml -180 ml -1820 ml Constitutional: alert, oriented Respiratory: diminished breath sounds, wheezing Cardiovascular: nl pulses Gastrointestinal: soft, non-tender Extremities: normal pulses Neurological: nl mental status Results Results 24hrs Laboratory Tests Test 09/02/18 05:08 Sodium Level 145 H Potassium Level 4.3 Chloride Level 103 Carbon Dioxide Level 36 H Anion Gap 6 Blood Urea Nitrogen 26 H Creatinine 0.73 Est Glomerular Filtrat Rate mL/min > 60 Glucose Level 101 Calcium Level 9.1 Phosphorus Level 2.8 Magnesium Level 2.2 Medications Medication Current Medications Ondansetron HCl (Zofran Inj) 4 mg Q6H PRN IV NAUSEA AND/OR VOMITING; Start 08/26/18 at 23:30 Acetaminophen (Tylenol Supp) [address] PAIN LEVEL 1-3 OR FEVER; Start 08/26/18 at 23:30 Enoxaparin Sodium (Lovenox) 30 mg DAILY SC Last administered on 09/02/18 08:27; Admin Dose 30 MG; Start 08/27/18 at 09:00 Aspirin (Aspirin) 81 mg DAILY PO Last administered on 09/02/18 08:25; Admin Dose 81 MG; Start 08/29/18 at 09:00 Famotidine (Pepcid) 20 mg Q12 PO Last administered on 09/02/18 08:25; Admin Dose 20 MG; Start 08/29/18 at 21:00 Albuterol (Proventil 0.083% (Neb)) 2.5 mg Q6H RESP THERAPY HHN Last administered on 09/02/18 13:59; Admin Dose 2.5 MG; Start 08/29/18 at 21:52 Ipratropium [place] (Atrovent 0.02% (Neb)) 0.5 mg Q6H RESP THERAPY HHN Last administered on 09/02/18 13:59; Admin Dose 0.5 MG; Start 08/29/18 at 21:53 Methylprednisolone Sodium Succinate (Solu-Medrol) 40 mg Q12 IV Last administered on 09/02/18 08:25; Admin Dose 40 MG; Start 08/30/18 at 21:00 Zolpidem Tartrate (Ambien) 5 mg HS PRN PO INSOMNIA Last administered on 09/01/18 21:42; Admin Dose 5 MG; Start 09/01/18 at 00:00 Amlodipine Besylate (Norvasc) 10 mg DAILY PO Last administered on 09/02/18 08:25; Admin Dose 10 MG; Start 09/01/18 at 15:00 Guaifenesin/ Dextromethorphan (Robitussin Dm Liquid Cup) 5 ml Q6H PRN PO COUGH Last administered on 09/02/18 04:59; Admin Dose 5 ML; Start 09/01/18 at 20:00 Morphine Sulfate (morphine) 2 mg Q4H PRN [place] PAIN LEVEL 7-10 Last administered on 09/02/18 00:35; Admin Dose 2 MG; Start 09/01/18 at 20:30 HERMES HARRIS Sep 02, 2018 16:53
[2018-09-02] MEDS: DIVALPROEX (EC) 250 MG TAB PO SCH (17:31)
[2018-09-02 19:30] VITALS: BP 134/99; PULSE 64; RESP 16
[2018-09-02 20:15] VITALS: BP 154/83; PULSE 69; RESP 16
[2018-09-03] MEDS: DIVALPROEX (EC) 250 MG TAB PO SCH ×3 (00:07→18:52)
[2018-09-03 01:21] VITALS: BP 132/70; PULSE 86; RESP 16
[2018-09-03] MEDS: IPRATROPIUM (NEB) 0.5 MG/2.5 ML AMP HHN SCH ×4 (02:08→19:57)
[2018-09-03] MEDS: ALBUTEROL 0.083% (NEB) 2.5 MG/3 ML AMP HHN SCH ×4 (02:08→19:57)
[2018-09-03] MEDS: GUAIFENESIN/DM 5ML CUP PO PRN (02:20)
[2018-09-03 08:00] VITALS: BP 123/66; PULSE 72; RESP 20
--- NOTE | 2018-09-03 08:13 | PN ---
DATE: 09/03/2018 SUBJECTIVE: The patient is stable. No events overnight. OBJECTIVE: VITAL SIGNS: Blood pressure is 154/83, pulse 86, respirations 24. HEENT: Head is normocephalic. NECK: Supple. HEART: Regular rate. LUNGS: Show diminished breath sounds at the base. ABDOMEN: Soft, nontender to palpation without rebound or guarding. EXTREMITIES: Negative for clubbing, cyanosis, no edema. DERMATOLOGIC: No rashes. MUSCULOSKELETAL: No joint effusion. NEUROLOGIC: No change in exam. MEDICATIONS: Reviewed. LABORATORY DATA: Reviewed. ASSESSMENT AND PLAN: 1. Nonoliguric acute kidney injury with unknown baseline creatinine. Etiology is secondary to hemod ynamics. Renal function is improved. Continue current treatment plan, supportive care, renally dose all medicines. 2. Hypernatremia. The patient's sodium levels remain elevated. Continue to encourage free water in take. 3. Anemia. Monitor hemoglobin and hematocrit levels. 4. Mineral bone disorder. Monitor calcium and phosphorus levels. 5. Sepsis, status post shock. The patient is completing antibiotic course. 6. Status post respiratory failure. 7. Status post cardiac arrest. 8. Encephalopathy, resolved. Continue to monitor. 9. Status post pneumothorax. Dictated By: JOE BLACK DO NR/NTS Conf#: [id number] DID#: [id number] CC: KHUSHI PATTON MD; VIVIANA NOLAN MD; WENDY LOVE MD;*EndCC*
[2018-09-03] MEDS: METHYLPREDNISOLONE 40 MG INJ IV SCH ×2 (08:40→20:31)
[2018-09-03] MEDS: ASPIRIN 81 MG TAB PO SCH (08:40)
[2018-09-03] MEDS: FAMOTIDINE 20 MG TAB PO SCH ×2 (08:41→20:44)
[2018-09-03] MEDS: AMLODIPINE 10 MG TAB PO SCH (08:44)
[2018-09-03] MEDS: ENOXAPARIN 30 MG/0.3 ML SYG SC SCH (08:45)
[2018-09-03] MEDS: BALSAM PERU/CASTOR OIL 60 GM TUBE TOP SCH (08:50)
--- NOTE | 2018-09-03 09:33 | CONS ---
Assessment/Plan Assessment/Plan Hospital Course (Demo Recall) No events, no fevers Physical examination: Well-developed chronically ill-appearing fragile elderly man who is intubated sedated in no distress. Head atraumatic normocephalic sclera nonicteric vehicle mucosa dry neck is supple chest rise symmetrical breath sounds diminished bases. Heart: S1-S2. Abdomen soft bowel sounds present. Extremities cyanotic Assessment: 1. S/p septic shock 2. Bradycardia 3. Status post acute hypoxemic respiratory failure 4. Pneumoperitoneum of unclear etiology, no perforation per surgical note 5. Pancytopenia 5. Anemia 6. Non-ST elevation [place] 7. Status post cardiac arrest Plan: Patient remained stable, continue present care, observe off antibiotics Consultation Date/Type/Reason Admit Date/Time Aug 27, 2018 at 00:03 Initial Consult Date 08/27/18 Type of Consult ID Requesting Provider: VIVIANA NOLAN MD Date/Time of Note DATE: 09/03/18 TIME: 09:33 Exam/Review of Systems Exam Vitals Vital Signs Date Temp Pulse Resp B/P (MAP) Pulse Ox O2 O2 Flow FiO2 Time Delivery Rate 09/03/18 Nasal 3.0 09:12 Cannula 09/03/18 83 24 80 02:09 09/03/18 98.1 132/70 01:21 (90) Intake and Output 09/02/18 09/02/18 09/03/18 1414:59 22:59 06:59 IntakeIntake Total 1040 ml 1480 ml 800 ml OutputOutput Total 3500 ml 3000 ml BalanceBalance 1040 ml -2020 ml -2200 ml Results Result Diagram: 08/31/18 0345 09/02/18 0508 Medications Medication Current Medications Ondansetron HCl (Zofran Inj) 4 mg Q6H PRN IV NAUSEA AND/OR VOMITING; Start 08/26/18 at 23:30 Acetaminophen (Tylenol Supp) 650 mg Q4H PRN [place] PAIN LEVEL 1-3 OR FEVER; Start 08/26/18 at 23:30 Enoxaparin Sodium (Lovenox) 30 mg DAILY SC Last administered on 09/03/18at 08:45; Admin Dose 30 MG; Start 08/27/18 at 09:00 Aspirin (Aspirin) 81 mg DAILY PO Last administered on 09/03/18at 08:40; Admin Dose 81 MG; Start 08/29/18 at 09:00 Famotidine (Pepcid) 20 mg Q12 PO Last administered on 09/03/18 08:41; Admin Dose 20 MG; Start 08/29/18 at 21:00 Albuterol (Proventil 0.083% (Neb)) 2.5 mg Q6H RESP THERAPY HHN Last administered on 09/03/18 02:08; Admin Dose 2.5 MG; Start 08/29/18 at 21:52 Ipratropium [place] (Atrovent 0.02% (Neb)) 0.5 mg Q6H RESP THERAPY HHN Last administered on 09/03/18 02:08; Admin Dose 0.5 MG; Start 08/29/18 at 21:53 Methylprednisolone Sodium Succinate (Solu-Medrol) 40 mg Q12 IV Last administered on 09/03/18 08:40; Admin Dose 40 MG; Start 08/30/18 at 21:00 Zolpidem Tartrate (Ambien) 5 mg HS PRN PO INSOMNIA Last administered on 09/01/18 21:42; Admin Dose 5 MG; Start 09/01/18 at 00:00 Amlodipine Besylate (Norvasc) 10 mg DAILY PO Last administered on 09/03/18 08:44; Admin Dose 10 MG; Start 09/01/18 at 15:00 Guaifenesin/ Dextromethorphan (Robitussin Dm Liquid Cup) 5 ml Q6H PRN PO COUGH Last administered on 09/03/18 02:20; Admin Dose 5 ML; Start 09/01/18 at 20:00 Morphine Sulfate (morphine) 2 mg Q4H PRN IV PAIN LEVEL 7-10 Last administered on 09/02/18 00:35; Admin Dose 2 MG; Start 09/01/18 at 20:30 Divalproex Sodium (Depakote) 250 mg Q8H PO Last administered on 09/03/18 08:40; Admin Dose 250 MG; Start 09/02/18 at 17:00 AALIYAH MEZA NP Sep 03, 2018 09:33
--- NOTE | 2018-09-03 11:00 | CONS ---
Consult Date/Type/Reason Admit Date/Time Aug 27, 2018 at 00:03 Initial Consult Date 08/27/18 Requesting Provider: VIVIANA NOLAN MD Date/Time of Note DATE: 09/03/18 TIME: 10:59 Subjective NO acute events - pt off tele now - agitated - BP well Rx. NO P noted. ROS: No fever, no chills, no nausea, no vomiting, no diarrhea/constipation No recent weight changes No chest pain, no PND, no orthopnea - mildSOB/chronic No dizziness, blurred vision No thirst, no heat or cold intolerance Objective Vitals Vital Signs Date Temp Pulse Resp B/P (MAP) Pulse Ox O2 O2 Flow FiO2 Time Delivery Rate 09/03/18 Nasal 3.0 09:12 Cannula 09/03/18 83 24 80 02:09 09/03/18 98.1 132/70 01:21 (90) Intake and Output 09/02/18 09/02/18 09/03/18 1515:00 23:00 07:00 IntakeIntake Total 1040 ml 1480 ml 800 ml OutputOutput Total 3500 ml 3000 ml BalanceBalance 1040 ml -2020 ml -2200 ml Exam General: WN/WD/NAD, AOx 1-2 Psych HEENT: Unicetric/atraumatic/EOMI (does not follow commands) NECK: JVD elevated, no thyromegaly Lymph: no lymphadenopathy HEART: regular with no S3, II/ systolic murmur at apex LUNGS: Coarse sounds ABD: soft, NT, ND, +BS : Intact Neuro: non focal SKIN: chronic changes EXT: trace edema Results/Medications Result Diagram: 08/31/18 0345 09/02/18 0508 Home Meds Reported Medications Docusate Sodium* (Colace*) 100 Mg Capsule, 100 MG PO Q24H PRN for CONSTIPATION, #30 CAP 08/26/18 Polyethylene Glycol* (Miralax*) 17 Gm Powd.pack, 17 GM PO DAILY PRN for NEEDED, #30 PACKET 08/26/18 Acetaminophen* (Acetaminophen*) 325 Mg Tablet, 650 MG PO Q4H PRN for PAIN 1- 05/15, #30 TAB AND FEVER>101F 08/26/18 Sennosides* (Senna Lax*) 8.6 Mg Tablet, 1 TAB PO NEEDED, TAB 1/21/19 Mv,Minerals/Fa/Lycopene/Ginkgo (ONE DAILY MEN'S 50+ TABLET) 1 Each Tablet, 1 EACH PO DAILY, TAB 08/26/18 Divalproex Sodium* (Depakote*) 125 Mg Tablet.dr, 250 MG PO Q8H, #90 TAB 08/26/18 Quetiapine Fumarate* (Seroquel*) 50 Mg Tablet, 50 MG PO Q8H, TAB 08/26/18 Ipratropium-Albuterol (Ipratropium-Albuterol) 0.5-3 Mg/3 Ml Ampul.neb, 3 ML INHALATION Q4H PRN for WHEEZING AND SOB, #30 VIAL 08/26/18 Budesonide-Formoterol Fumarate* (Symbicort*) 160-4.5 Hfa.aer.ad, 2 PUFF INHALATION BID, #1 EACH 08/26/18 Medications Current Medications Ondansetron HCl (Zofran Inj) 4 mg Q6H PRN IV NAUSEA AND/OR VOMITING; Start 08/26/18 at 23:30 Acetaminophen (Tylenol Supp) 650 mg Q4H PRN [place] PAIN LEVEL 1-3 OR FEVER; Start 08/26/18 at 23:30 Enoxaparin Sodium (Lovenox) 30 mg DAILY SC Last administered on 09/03/18at 08: 45; Admin Dose 30 MG; Start 08/27/18 at 09:00 Aspirin (Aspirin) 81 mg DAILY PO Last administered on 09/03/18at 08:40; Admin Dose 81 MG; Start 08/29/18 at 09:00 Famotidine (Pepcid) 20 mg Q12 PO Last administered on 09/03/18at 08:41; Admin Dose 20 MG; Start 08/29/18 at 21:00 Albuterol (Proventil 0.083% (Neb)) 2.5 mg Q6H RESP THERAPY HHN Last administered on 09/03/18at 02:08; Admin Dose 2.5 MG; Start 08/29/18 at 21:52 Ipratropium [place] (Atrovent 0.02% (Neb)) 0.5 mg Q6H RESP THERAPY HHN Last ad ministered on 09/03/18at 02:08; Admin Dose 0.5 MG; Start 08/29/18 at 21:53 Methylprednisolone Sodium Succinate (Solu-Medrol) 40 mg Q12 IV Last administered on 09/03/18at 08:40; Admin Dose 40 MG; Start 08/30/18 at 21:00 Zolpidem Tartrate (Ambien) 5 mg HS PRN PO INSOMNIA Last administered on 09/01/18at 21:42; Admin Dose 5 MG; Start 09/01/18 at 00:00 Amlodipine Besylate (Norvasc) 10 mg DAILY PO Last administered on 09/03/18at 08:44; Admin Dose 10 MG; Start 09/01/18 at 15:00 Guaifenesin/ Dextromethorphan (Robitussin Dm Liquid Cup) 5 ml Q6H PRN PO COUGH Last administered on 09/03/18at 02:20; Admin Dose 5 ML; Start 09/01/18 at 20:00 Morphine Sulfate (morphine) 2 mg Q4H PRN [place] PAIN LEVEL 7-10 Last administered on 09/02/18at 00:35; Admin Dose 2 MG; Start 09/01/18 at 20:30 Divalproex Sodium (Depakote) 250 mg Q8H PO Last administered on 09/03/18at 08:40; Admin Dose 250 MG; Start 09/02/18 at 17:00 Assessment/Plan Hospital Course (Demo Recall) 1.Hypotension-off levo - better now. 2.resp failure s/p intubation - now self extubated - better overall. Con't COPD rx. 3.cardiac arrest - etiology unclear - con't supportive RX now. Stable now - of tele. 4.Pneumoperitoneum - self d/c chest tube - stable SOB now. 5.Positive troponin-now trended neg - will monitor clinically for now. No intervention planned. 6.renal failure - good urine output. 7.Leukocytosis - on anti-Bx, con't med rx. 8. anemia - H/H stable - no bleeding noted. 9, Thrombocytopenia JIE ALEJO MD Sep 03, 2018 11:00
[2018-09-03 14:00] VITALS: BP 124/87; PULSE 71; RESP 18
--- NOTE | 2018-09-03 22:47 | PN ---
Date/Time of Note Date/Time of Note DATE: 09/03/18 TIME: 22:43 Assessment/Plan VTE Prophylaxis Risk score (from Ns)>0 risk: 7 SCD applied (from Ns): Yes Pharmacological prophylaxis: LMWH Lines/Catheters IV C[facility] Type (from [facility]): IJ Urinary Cath still in place: Yes Reason Cath still needed: urinary retention Assessment/Plan Hospital Course Patient with diminished lung sounds, wheezing, continue breathing treatment, oxygen. Pt is awake, alert, able to answer questions appropriately however confused and delusional at times per nursing staff. Will obtain psychiatric evaluation. Assessment/Plan -Sepsis with shock, resolving. Dr. Sutton is following in infection disease consultation. -Status post cardiac arrest. Dr. Hernández is following in cardiology consultation. -Left-sided pneumothorax, status post left side chest tube placement, s/p self d/c CT. -Acute respiratory failure, continue ventilatory support bronchodilators. Dr. Molina is following in pulmonology consultation. -Pneumoperitoneum most likely due to cardiac arrest. Dr. Rivas is following in general surgery consultation. -Left axillary and brachial DVT, continue Lovenox -Left lower lobe pneumonia -Severe emphysema -JEREMÍAS with possible chronic kidney disease. Dr Arvizu is following in nephrology consultation. -Bipolar disorder Further recommendations based on clinical course. Plan of care discussed with Dr. Juarez. Result Diagram: 08/31/18 0345 09/02/18 0508 Exam/Review of Systems Exam Vitals Vital Signs Date Temp Pulse Resp B/P (MAP) Pulse Ox O2 O2 Flow FiO2 Time Delivery Rate 09/03/18 3.0 19:57 09/03/18 86 26 99 Nasal 19:57 Cannula 09/03/18 97.9 124/87 14:00 (99) Intake and Output 09/02/18 09/02/18 09/03/18 1515:00 23:00 07:00 IntakeIntake Total 1040 ml 1480 ml 800 ml OutputOutput Total 3500 ml 3000 ml BalanceBalance 1040 ml -2020 ml -2200 ml Exam Constitutional: alert, oriented Respiratory: diminished breath sounds, wheezing Cardiovascular: nl pulses Gastrointestinal: soft, non-tender Extremities: normal pulses Neurological: nl mental status Medications Medication Current Medications Ondansetron HCl (Zofran Inj) 4 mg Q6H PRN IV NAUSEA AND/OR VOMITING; Start 08/26/18 at 23:30 Acetaminophen (Tylenol Supp) 650 mg Q4H PRN [place] PAIN LEVEL 1-3 OR FEVER; Start 08/26/18 at 23:30 Enoxaparin Sodium (Lovenox) 30 mg DAILY SC Last administered on 09/03/18 08:45; Admin Dose 30 MG; Start 08/27/18 at 09:00 Aspirin (Aspirin) 81 mg DAILY PO Last administered on 09/03/18 08:40; Admin Dose 81 MG; Start 08/29/18 at 09:00 Famotidine (Pepcid) 20 mg Q12 PO Last administered on 09/03/18 20:44; Admin Dose 20 MG; Start 08/29/18 at 21:00 Albuterol (Proventil 0.083% (Neb)) 2.5 mg Q6H RESP THERAPY HHN Last administered on 09/03/18 19:57; Admin Dose 2.5 MG; Start 08/29/18 at 21:52 Ipratropium [place] (Atrovent 0.02% (Neb)) 0.5 mg Q6H RESP THERAPY HHN Last administered on 09/03/18 19:57; Admin Dose 0.5 MG; Start 08/29/18 at 21:53 Methylprednisolone Sodium Succinate (Solu-Medrol) 40 mg Q12 IV Last administered on 09/03/18 20:31; Admin Dose 40 MG; Start 08/30/18 at 21:00 Zolpidem Tartrate (Ambien) 5 mg HS PRN PO INSOMNIA Last administered on 09/01/18 21:42; Admin Dose 5 MG; Start 09/01/18 at 00:00 Amlodipine Besylate (Norvasc) 10 mg DAILY PO Last administered on 09/03/18 08:44; Admin Dose 10 MG; Start 09/01/18 at 15:00 Guaifenesin/ Dextromethorphan (Robitussin Dm Liquid Cup) 5 ml Q6H PRN PO COUGH Last administered on 09/03/18 02:20; Admin Dose 5 ML; Start 09/01/18 at 20:00 Morphine Sulfate (morphine) 2 mg Q4H PRN [place] PAIN LEVEL 7-10 Last administered on 09/02/18 00:35; Admin Dose 2 MG; Start 09/01/18 at 20:30 Divalproex Sodium (Depakote) 250 mg Q8H PO Last administered on 09/03/18at 18:52; Admin Dose 250 MG; Start 09/02/18 at 17:00 HERMES HARRIS Sep 03, 2018 22:47
[2018-09-04 01:38] VITALS: BP 128/82; PULSE 70; RESP 20
[2018-09-04] MEDS: DIVALPROEX (EC) 250 MG TAB PO SCH ×3 (01:54→17:12)
[2018-09-04] MEDS: ALBUTEROL 0.083% (NEB) 2.5 MG/3 ML AMP HHN SCH ×4 (02:04→19:38)
[2018-09-04] MEDS: IPRATROPIUM (NEB) 0.5 MG/2.5 ML AMP HHN SCH ×4 (02:04→19:38)
[2018-09-04 08:00] VITALS: BP 114/68; PULSE 64; RESP 18
[2018-09-04] MEDS: ASPIRIN 81 MG TAB PO SCH (08:21)
[2018-09-04] MEDS: METHYLPREDNISOLONE 40 MG INJ IV SCH (08:21)
[2018-09-04] MEDS: FAMOTIDINE 20 MG TAB PO SCH ×2 (08:21→20:53)
[2018-09-04] MEDS: ENOXAPARIN 30 MG/0.3 ML SYG SC SCH (08:25)
[2018-09-04] MEDS: BALSAM PERU/CASTOR OIL 60 GM TUBE TOP SCH (08:26)
--- NOTE | 2018-09-04 08:43 | PN ---
DATE: 09/04/2018 SUBJECTIVE: The patient is stable, no events overnight. No fevers, chills, nausea, or vomiting. OBJECTIVE: VITAL SIGNS: Blood pressure is 140/68, respirations 18, pulse 64, temperature 97.6. HEENT: Head is normocephalic. NECK: Supple. HEART: Regular rate. LUNGS: Show diminished breath sounds at the base. ABDOMEN: Soft, nontender to palpation without rebound or guarding. EXTREMITIES: Negative for clubbing, cyanosis. No edema. DERMATOLOGIC: No rashes. MUSCULOSKELETAL: No joint effusions. NEUROLOGIC: No change in exam. MEDICATIONS: The patient's medications have been reviewed. LABORATORY DATA: Laboratory data has been reviewed showed sodium 142, BUN 40, creatinine 0.84. Whit e count 3.4, hemoglobin 10.3, platelet count is 104. ASSESSMENT AND PLAN: 1. Nonoliguric acute kidney injury with unknown baseline creatinine. Etiology is secondary to hemod ynamics. Renal function is improved. Continue current treatment plans, supportive care, renally dos e all medicines. 2. Hypernatremia. The patient's levels are improving. Continue to encourage free water intake. 3. Anemia. Monitor hemoglobin and hematocrit levels. 4. Mineral bone disorder, monitor calcium and phosphorus levels. 5. Sepsis, status post shock. The patient is completing antibiotic course. 6. Status post respiratory failure. 7. Status post cardiac arrest. 8. Encephalopathy, resolved. 9. Status post pneumothorax. Dictated By: JOE CHU/NTS Conf#: [id number] DID#: [id number] CC: WENDY LOVE MD; KHUSHI PATTON MD; VIVIANA NOLAN MD;*EndCC*
[2018-09-04] MEDS: AMLODIPINE 10 MG TAB PO SCH (09:07)
--- NOTE | 2018-09-04 11:15 | CONS ---
Assessment/Plan Assessment/Plan Assessment/Plan (Daily) Assessment and recommendations; 1. Patient admitted with respiratory failure status post extubation with marked overall clinical improvement. 2. Pneumoperitoneum of unknown etiology with spontaneous resolution. Patient has not required any intervention. 3. Advanced emphysema. 4. Status post self removal of left-sided chest tube as well. Continue current supportive care. Discontinue Solu-Medrol. Consider discharge. Consultation Date/Type/Reason Admit Date/Time Aug 27, 2018 at 00:03 Initial Consult Date 08/27/18 Type of Consult Pulmonary/critical care Patient is a 68-year-old male who is a [facility] resident was sent over to the hospital because of hypothermia and altered mental status. In the emergency room, patient developed cardiac arrest requiring CPR and intubation. In the course of workup the patient also required a chest tube placement on the left side. CT imaging of the abdomen showed pneumoperitoneum with possibly perforated viscus. By the time I saw the patient in ICU, patient is orally intubated and sedated. History was obtained from medical records. Past medical history; essentially unremarkable except for possibly COPD. Medications; reviewed. Patient is currently on dopamine at 6 mics per kilogram per minute, Levophed 20 mics per minute, propofol 25 mics per kilogram per vinnie te. Other medications were also reviewed. Allergies; none. Social history; not available. Family history and occupational history is also not available. Review of system; unable to be obtained. General exam; elderly male, orally intubated, sedated, currently in no distress. Requesting Provider: VIVIANA NOLAN MD Date/Time of Note DATE: 09/04/18 TIME: 11:13 24 HR Interval Summary Free Text/Dictation Patient's condition is stable. Denies any shortness of breath, chest pain, coughing or wheezing. General exam; elderly male, laying comfortably in bed. Awake and alert. Currently in no distress. Exam/Review of Systems Exam Vitals Vital Signs Date Temp Pulse Resp B/P (MAP) Pulse Ox O2 O2 Flow FiO2 Time Delivery Rate 09/04/18 86 18 96 21 08:34 09/04/18 97.6 114/68 Nasal 08:00 (83) Cannula 09/04/18 3.0 07:39 Intake and Output 09/03/18 09/03/18 09/04/18 1515:00 23:00 07:00 IntakeIntake Total 480 ml 320 ml OutputOutput Total 900 ml BalanceBalance -420 ml 320 ml Exam H HEENT exam; supple neck, no JVD. No lymphadenopathy. Midline trachea. No thyromegaly. Chest exam; diminished but clear breath sounds. S1-S2 audible, no murmurs. Regular rhythm. Abdomen exam; soft, nontender. No organomegaly. Bowel sounds audible. Extremity exam; no peripheral edema or clubbing. [employer] exam; no focal deficit. Results Result Diagram: 08/31/18 0345 09/04/18 0622 Results 24hrs Laboratory Tests Test 09/04/18 06:22 Sodium Level 142 Potassium Level 3.9 Chloride Level 102 Carbon Dioxide Level 33 H Anion Gap 7 Blood Urea Nitrogen 40 H Creatinine 0.84 Est Glomerular Filtrat Rate mL/min > 60 Glucose Level 111 Calcium Level 9.5 Phosphorus Level 3.7 Magnesium Level 2.4 Medications Medication Current Medications Ondansetron HCl (Zofran Inj) 4 mg Q6H PRN IV NAUSEA AND/OR VOMITING; Start 08/26/18 at 23:30 Acetaminophen (Tylenol Supp) [address] PAIN LEVEL 1-3 OR FEVER; Start 08/26/18 at 23:30 Enoxaparin Sodium (Lovenox) 30 mg DAILY SC Last administered on 09/04/18 08:25; Admin Dose 30 MG; Start 08/27/18 at 09:00 Aspirin (Aspirin) 81 mg DAILY PO Last administered on 09/04/18 08:21; Admin Dose 81 MG; Start 08/29/18 at 09:00 Famotidine (Pepcid) 20 mg Q12 PO Last administered on 09/04/18 08:21; Admin Do se 20 MG; Start 08/29/18 at 21:00 Albuterol (Proventil 0.083% (Neb)) 2.5 mg Q6H RESP THERAPY HHN Last administered on 09/04/18 02:04; Admin Dose 2.5 MG; Start 08/29/18 at 21:52 Ipratropium [place] (Atrovent 0.02% (Neb)) 0.5 mg Q6H RESP THERAPY HHN Last administered on 09/04/18 02:04; Admin Dose 0.5 MG; Start 08/29/18 at 21:53 Methylprednisolone Sodium Succinate (Solu-Medrol) 40 mg Q12 IV Last administered on 09/04/18 08:21; Admin Dose 40 MG; Start 08/30/18 at 21:00 Zolpidem Tartrate (Ambien) 5 mg HS PRN PO INSOMNIA Last administered on 09/01/18 21:42; Admin Dose 5 MG; Start 09/01/18 at 00:00 Amlodipine Besylate (Norvasc) 10 mg DAILY PO Last administered on 09/04/18 09:07; Admin Dose 10 MG; Start 09/01/18 at 15:00 Guaifenesin/ Dextromethorphan (Robitussin Dm Liquid Cup) 5 ml Q6H PRN PO COUGH Last administered on 09/03/18 02:20; Admin Dose 5 ML; Start 09/01/18 at 20:00 Morphine Sulfate (morphine) 2 mg Q4H PRN IV PAIN LEVEL 7-10 Last administered on 09/02/18 00:35; Admin Dose 2 MG; Start 09/01/18 at 20:30 Divalproex Sodium (Depakote) 250 mg Q8H PO Last administered on 09/04/18 08:21; Admin Dose 250 MG; Start 09/02/18 at 17:00 GAMALIEL BASILIO Sep 04, 2018 11:15
[2018-09-04 14:00] VITALS: BP 135/75; PULSE 79; RESP 18
--- NOTE | 2018-09-04 14:10 | PN ---
Date/Time of Note Date/Time of Note DATE: 09/04/18 TIME: 14:08 Assessment/Plan VTE Prophylaxis Risk score (from Ns)>0 risk: 5 [place] [facility] [place]CD contraindicated: low risk/ambulating Pharmacological prophylaxis: LMWH Lines/Catheters IV C[facility]ter Type (from [facility] IJ CENTRAL LINE Urinary Cath still in place: Yes Reason Cath still needed: urinary retention Assessment/Plan Hospital Course Patient is awake alert continues on supplemental oxygen without distress, pending psychiatric evaluation. Assessment/Plan -Sepsis with shock, resolving. Dr. Sutton is following in infection disease consultation. -Status post cardiac arrest. Dr. Hernández is following in cardiology consultation. -Left-sided pneumothorax, status post left side chest tube placement, s/p self d/c CT. -Acute respiratory failure, continue ventilatory support bronchodilators. Dr. Molina is following in pulmonology consultation. -Pneumoperitoneum most likely due to cardiac arrest. Dr. Rivas is following in general surgery consultation. -Left axillary and brachial DVT, continue Lovenox -Left lower lobe pneumonia -Severe emphysema -JEREMÍAS with possible chronic kidney disease. Dr Arvizu is following in nephrology consultation. -Bipolar disorder Further recommendations based on clinical course. Plan of care discussed with Dr. Juarez. Result Diagram: 08/31/18 0345 09/04/18 0622 Results 24hrs Laboratory Tests Test 09/04/18 06:22 Sodium Level 142 Potassium Level 3.9 Chloride Level 102 Carbon Dioxide Level 33 H Anion Gap 7 Blood Urea Nitrogen 40 H Creatinine 0.84 Est Glomerular Filtrat Rate mL/min > 60 Glucose Level 111 Calcium Level 9.5 Phosphorus Level 3.7 Magnesium Level 2.4 Exam/Review of Systems Exam Vitals Vital Signs Date Temp Pulse Resp B/P (MAP) Pulse Ox O2 O2 Flow FiO2 Time Delivery Rate 09/04/18 86 18 96 21 08:34 09/04/18 97.6 114/68 Nasal 08:00 (83) Cannula 09/04/18 3.0 07:39 Intake and Output 09/03/18 09/03/18 09/04/18 1515:00 23:00 07:00 IntakeIntake Total 480 ml 320 ml OutputOutput Total 900 ml BalanceBalance -420 ml 320 ml Exam Constitutional: alert, oriented Respiratory: diminished breath sounds, wheezing Cardiovascular: nl pulses Gastrointestinal: soft, non-tender Extremities: normal pulses Neurological: nl mental status Results Results 24hrs Laboratory Tests Test 09/04/18 06:22 Sodium Level 142 Potassium Level 3.9 Chloride Level 102 Carbon Dioxide Level 33 H Anion Gap 7 Blood Urea Nitrogen 40 H Creatinine 0.84 Est Glomerular Filtrat Rate mL/min > 60 Glucose Level 111 Calcium Level 9.5 Phosphorus Level 3.7 Magnesium Level 2.4 Medications Medication Current Medications Ondansetron HCl (Zofran Inj) 4 mg Q6H PRN IV NAUSEA AND/OR VOMITING; Start 08/26/18 at 23:30 Acetaminophen (Tylenol Supp) 650 mg Q4H PRN [place] PAIN LEVEL 1-3 OR FEVER; Start 08/26/18 at 23:30 Enoxaparin Sodium (Lovenox) 30 mg DAILY SC Last administered on 09/04/18 08:25; Admin Dose 30 MG; Start 08/27/18 at 09:00 Aspirin (Aspirin) 81 mg DAILY PO Last administered on 09/04/18 08:21; Admin Dose 81 MG; Start 08/29/18 at 09:00 Famotidine (Pepcid) 20 mg Q12 PO Last administered on 09/04/18 08:21; Admin Dose 20 MG; Start 08/29/18 at 21:00 Albuterol (Proventil 0.083% (Neb)) 2.5 mg Q6H RESP THERAPY HHN Last ad ministered on 09/04/18 02:04; Admin Dose 2.5 MG; Start 08/29/18 at 21:52 Ipratropium [place] (Atrovent 0.02% (Neb)) 0.5 mg Q6H RESP THERAPY HHN Last administered on 09/04/18 02:04; Admin Dose 0.5 MG; Start 08/29/18 at 21:53 Zolpidem Tartrate (Ambien) 5 mg HS PRN PO INSOMNIA Last administered on 09/01/18 21:42; Admin Dose 5 MG; Start 09/01/18 at 00:00 Amlodipine Besylate (Norvasc) 10 mg DAILY PO Last administered on 09/04/18 09:07; Admin Dose 10 MG; Start 09/01/18 at 15:00 Guaifenesin/ Dextromethorphan (Robitussin Dm Liquid Cup) 5 ml Q6H PRN PO COUGH Last administered on 09/03/18at 02:20; Admin Dose 5 ML; Start 09/01/18 at 20:00 Morphine Sulfate (morphine) 2 mg Q4H PRN IV PAIN LEVEL 7-10 Last administered on 09/02/18at 00:35; Admin Dose 2 MG; Start 09/01/18 at 20:30 Divalproex Sodium (Depakote) 250 mg Q8H PO Last administered on 09/04/18at 08:21; Admin Dose 250 MG; Start 09/02/18 at 17:00 HERMES HARRIS Sep 04, 2018 14:10
--- NOTE | 2018-09-04 15:33 | PSY ---
Date/Time of Note Date/Time of Note DATE: 09/04/18 TIME: 15:30 Psychiatric Subjective Eval Subjective Evaluation Chief Complaint: aloc/ resp distress History of present illness Patient is a 68-year-old male with medical history of COPD,BPH, seizure disorder and hyperlipidemia. On a [id number] evaluation, patient reports hearing voices and seeing things, patient states he has had hallucinations since he was young and has been on psychiatric medication he however denies suicidal ideation and homicidal ideation and contracted for safety. Patient reperfused to the to divulge the contents of his hallucination but agreed to take medications. Risk and benefits of Risperdal explained and patient agreed that he will take the medication Past psychiatric history Long history of mental illness Hospitalization: other Medical history Problems Medical Problems: (1) Acute renal failure Status: Acute (2) Acute respiratory failure Status: Acute (3) Altered level of consciousness Status: Acute (4) Cardiac arrest with successful resuscitation Status: Acute (5) Hyperkalemia Status: Acute (6) Hypothermia Status: Acute (7) Pneumonia Status: Acute (8) Pneumothorax on left Status: Acute (9) Septic shock Status: Acute Allergies: Coded Allergies: No Known Allergy (Unverified , 08/26/18) Substance Abuse Substance abuse history: No Prior substance abuse treatmen: No Social History Marital status: single DPA/Conservatorship: No Psychiatric Objective Eval Review of Systems: Review of Systems: Not Applicable Physical Examination: Physical Examination: Not Applicable Appetite: Decreased Mental Status Examination: Appearance: Poor Hygiene Eye Contact: Fair Behavior: Cooperative Speech: Clear AFFECT: Constricted Mood: Anxious Though Process: Tangential Thought Content: Hallucinations Orientation: x2 Insight: Mild Judgement: Mild Attention Span: Distractible Laboratory Results Laboratory Tests Test 09/04/18 06:22 Sodium Level 142 mmol/L Potassium Level 3.9 mmol/L Chloride Level 102 mmol/L Carbon Dioxide Level 33 mmol/L Anion Gap 7 Blood Urea Nitrogen 40 mg/dl Creatinine 0.84 mg/dl Est Glomerular Filtrat Rate mL/min > 60 mL/min Glucose Level 111 mg/dl Calcium Level 9.5 mg/dl Phosphorus Level 3.7 mg/dl Magnesium Level 2.4 mg/dl Assessment and Plan Assessment/Diagnosis Diagnosis Schizoaffective disorder depressed type Recommendation/Plan Medication Management Respiratory 0.5 mg twice daily, Depakote 250 mg every 8 hours, Ambien 5 mg nightly as needed. Multiple antipsychotics: No (Patient does not meets criteria for 5150 hold.) Discharge Disposition: Other Legal Status: Voluntary ALYSSA CARVAJAL NP Sep 04, 2018 15:33
--- NOTE | 2018-09-04 18:07 | CONS ---
Assessment/Plan Assessment/Plan Hospital Course (Demo Recall) IMP: 1.Hypotension-Now improved off levo and tolerating norvasc. NL EF by echo this admit 2.resp failure s/p extubation 3.cardiac arrest 4.pneumoperitoneum-resolved 5.Positive troponin-now trended neg 6.renal failure-improved 7.Leukocytosis 8. anemia 9, Thrombocytopenia-ongoing some mild improvement Recc: -ICU -Continue norvasc -start asa -s/p abx's -started on risperdal -follow MS closely Consultation Date/Type/Reason Admit Date/Time Aug 27, 2018 at 00:03 Initial Consult Date 08/27/18 Type of Consult Cardiology Reason for Consultation positive troponin Requesting Provider: VIVIANA NOLAN MD Date/Time of Note DATE: 09/04/18 TIME: 18:04 Exam/Review of Systems Vital Signs Vitals Vital Signs Date Temp Pulse Resp B/P (MAP) Pulse Ox O2 O2 Flow FiO2 Time Delivery Rate 09/04/18 3.0 14:43 09/04/18 88 20 95 Nasal 32 14:41 Cannula 09/04/18 98.0 135/75 14:00 (95) Intake and Output 09/03/18 09/03/18 09/04/18 1414:59 22:59 06:59 IntakeIntake Total 480 ml 320 ml OutputOutput Total 900 ml BalanceBalance -420 ml 320 ml Exam Exam Review of Systems: CONSTITUTIONAL: No fevers, chills. PULMONARY: mild sob CARDIOVASCULAR: No obvious chest pain/palpitations GASTROINTESTINAL: No nausea/vomiting. GENITOURINARY: No hematuria/dysuria. MUSCULOSKELETAL: No myagias/arthalgias. PSYCHIATRIC: The patient denies depression. NEUROLOGIC: ? confused Constitutional: alert Psych: no complaints, confusion Head: normocephalic ENMT: mucosa pink and moist Neck: supple, jvd (8 cm watyer) Respiratory: diminished breath sounds (at bases/B) Cardiovascular: regular rate and rhythm Gastrointestinal: soft, non-tender Musculoskeletal: muscle weakness (mild generalized) Extremities: edema (none) Labs Result Diagram: 08/31/18 0345 09/04/18 0622 Results 24hrs Laboratory Tests Test 09/04/18 06:22 Sodium Level 142 Potassium Level 3.9 Chloride Level 102 Carbon Dioxide Level 33 H Anion Gap 7 Blood Urea Nitrogen 40 H Creatinine 0.84 Est Glomerular Filtrat Rate mL/min > 60 Glucose Level 111 Calcium Level 9.5 Phosphorus Level 3.7 Magnesium Level 2.4 Medications Medications Current Medications Ondansetron HCl (Zofran Inj) 4 mg Q6H PRN IV NAUSEA AND/OR VOMITING; Start 08/26/18 at 23:30 Acetaminophen (Tylenol Supp) 650 mg Q4H PRN [place] PAIN LEVEL 1-3 OR FEVER; Start 08/26/18 at 23:30 Enoxaparin Sodium (Lovenox) 30 mg DAILY SC Last administered on 09/04/18 08:25; Admin Dose 30 MG; Start 08/27/18 at 09:00 Aspirin (Aspirin) 81 mg DAILY PO Last administered on 09/04/18 08:21; Admin Dose 81 MG; Start 08/29/18 at 09:00 Famotidine (Pepcid) 20 mg Q12 PO Last administered on 09/04/18 08:21; Admin Dose 20 MG; Start 08/29/18 at 21:00 Albuterol (Proventil 0.083% (Neb)) 2.5 mg Q6H RESP THERAPY HHN Last administered on 09/04/18 14:39; Admin Dose 2.5 MG; Start 08/29/18 at 21:52 Ipratropium [place] (Atrovent 0.02% (Neb)) 0.5 mg Q6H RESP THERAPY HHN Last administered on 09/04/18 14:39; Admin Dose 0.5 MG; Start 08/29/18 at 21:53 Zolpidem Tartrate (Ambien) 5 mg HS PRN PO INSOMNIA Last administered on 09/01/18 21:42; Admin Dose 5 MG; Start 09/01/18 at 00:00 Amlodipine Besylate (Norvasc) 10 mg DAILY PO Last administered on 09/04/18 09:07; Admin Dose 10 MG; Start 09/01/18 at 15:00 Guaifenesin/ Dextromethorphan (Robitussin Dm Liquid Cup) 5 ml Q6H PRN PO COUGH Last administered on 09/03/18 02:20; Admin Dose 5 ML; Start 09/01/18 at 20:00 Morphine Sulfate (morphine) 2 mg Q4H PRN IV PAIN LEVEL 7-10 Last administered on 09/02/18at 00:35; Admin Dose 2 MG; Start 09/01/18 at 20:30 Divalproex Sodium (Depakote) 250 mg Q8H PO Last administered on 09/04/18at 17:12; Admin Dose 250 MG; Start 09/02/18 at 17:00 Risperidone (Risperdal) 0.5 mg BID PO ; Start 09/04/18 at 21:00 MITCHEL DESOUZA Sep 04, 2018 18:07
[2018-09-04 19:41] VITALS: BP 131/73; PULSE 95; RESP 20
[2018-09-04] MEDS: RISPERIDONE 0.25 MG TAB PO SCH (20:53)
[2018-09-04] MEDS: morphine LIQ (10 MG/5 ML) CUP PO PRN (22:56)
[2018-09-04] MEDS: ZOLPIDEM 5 MG TAB PO PRN (23:03)
[2018-09-05] MEDS: ALBUTEROL 0.083% (NEB) 2.5 MG/3 ML AMP HHN SCH ×4 (01:49→21:00)
[2018-09-05] MEDS: IPRATROPIUM (NEB) 0.5 MG/2.5 ML AMP HHN SCH ×4 (01:49→21:00)
[2018-09-05 01:51] VITALS: BP_SYST 132; BP_SYST 134; BP_DIAS 61; BP_DIAS 69; PULSE 75; RESP 20
[2018-09-05] MEDS: DIVALPROEX (EC) 250 MG TAB PO SCH ×3 (01:57→17:13)
[2018-09-05 08:00] VITALS: BP 107/70; PULSE 76; RESP 18
[2018-09-05] MEDS ORDERED: FUROSEMIDE 20 MG INJ IV ONE (08:30)
[2018-09-05] MEDS: GUAIFENESIN/DM 5ML CUP PO PRN (09:04)
[2018-09-05] MEDS: ASPIRIN 81 MG TAB PO SCH (09:05)
[2018-09-05] MEDS: FAMOTIDINE 20 MG TAB PO SCH ×2 (09:05→20:33)
[2018-09-05] MEDS: morphine LIQ (10 MG/5 ML) CUP PO PRN (09:05)
--- NOTE | 2018-09-05 09:05 | PN ---
DATE: 09/05/2018 SUBJECTIVE: The patient is stable. The patient remains on 3 liters nasal cannula. No other events noted. OBJECTIVE: VITAL SIGNS: Blood pressure is 107/70, respirations 18, pulse 76, temperature 97.9. HEENT: Head is normocephalic. NECK: Supple. HEART: Regular rate. LUNGS: Show diminished breath sounds at the base. ABDOMEN: Soft, nontender to palpation without rebound or guarding. EXTREMITIES: Negative for clubbing, cyanosis, positive edema. DERMATOLOGIC: No rashes. MUSCULOSKELETAL: No joint effusion. NEUROLOGIC: No change in exam. MEDICATIONS: The patient's medications have been reviewed. LABORATORY DATA: From 09/05/2018 is pending. ASSESSMENT AND PLAN: 1. Nonoliguric acute kidney injury with unknown baseline creatinine. Etiology is secondary to hemod ynamics. Renal function is improved. Continue current treatment plan. 2. Hypernatremia, improved. Continue current free water intake. 3. Anemia. Monitor hemoglobin and hematocrit levels. 4. Mineral bone disorder. Monitor calcium and phosphorus levels. 5. Volume overload. Etiology is secondary to recent IV hydration, questionable heart failure. We w ill start the patient on low-dose diuretic therapy, monitor I's and O's closely. 6. Sepsis, status post shock. 7. Respiratory failure. The patient remains on 3 liters nasal cannula. Continue to monitor. We wi ll check chest x-ray. Continue diuretic therapy as stated above. Unclear if this is a component of heart failure. 8. Status post cardiac arrest. 9. Encephalopathy. 10. Status post pneumothorax. Dictated By: JOE CHU/NTS Conf#: [id number] DID#: [id number] CC: WEI SHAH NP; WENDY LOVE MD; VIVIANA NOLAN MD;*EndCC*
[2018-09-05] MEDS: AMLODIPINE 10 MG TAB PO SCH (09:07)
[2018-09-05] MEDS: RISPERIDONE 0.25 MG TAB PO SCH ×2 (09:08→20:33)
[2018-09-05] MEDS: ENOXAPARIN 30 MG/0.3 ML SYG SC SCH (09:12)
[2018-09-05] MEDS: BALSAM PERU/CASTOR OIL 60 GM TUBE TOP SCH (09:21)
--- NOTE | 2018-09-05 12:40 | CONS ---
Assessment/Plan Assessment/Plan Hospital Course (Demo Recall) IMP: 1.Hypotension-Now improved off levo and tolerating norvasc. NL EF by echo this admit 2.resp failure s/p extubation 3.cardiac arrest 4.pneumoperitoneum-resolved 5.Positive troponin-now trended neg 6.renal failure-improved 7.Leukocytosis 8. anemia 9, Thrombocytopenia-ongoing some mild improvement Recc: -Now on med-surg -Continue norvasc -Continue asa -s/p abx's -started on risperdal -follow MS closely -s/p dose of lasix with good output Consultation Date/Type/Reason Admit Date/Time Aug 27, 2018 at 00:03 Initial Consult Date 08/27/18 Type of Consult Cardiology Reason for Consultation positive troponin Requesting Provider: VIVIANA NOLAN MD Date/Time of Note DATE: 09/05/18 TIME: 12:38 Exam/Review of Systems Vital Signs Vitals Vital Signs Date Temp Pulse Resp B/P (MAP) Pulse Ox O2 O2 Flow FiO2 Time Delivery Rate 09/05/18 Nasal 3.0 08:00 Cannula 09/05/18 97.9 76 18 107/70 96 08:00 (82) 09/05/18 21 07:41 Intake and Output 09/04/18 09/04/18 09/05/18 1515:00 23:00 07:00 IntakeIntake Total 620 ml 950 ml OutputOutput Total 1300 ml 1600 ml 2250 ml BalanceBalance -680 ml -1600 ml -1300 ml Exam Exam Review of Systems: CONSTITUTIONAL: No fevers, chills. PULMONARY: No sob CARDIOVASCULAR: No chest pain/palpitations GASTROINTESTINAL: No nausea/vomiting. GENITOURINARY: No hematuria/dysuria. MUSCULOSKELETAL: No myagias/arthalgias. PSYCHIATRIC: The patient denies depression. NEUROLOGIC: confused Constitutional: alert, oriented Psych: no complaints Head: normocephalic ENMT: mucosa pink and moist Neck: supple, jvd (9 cm water) Respiratory: clear to auscultation Cardiovascular: regular rate and rhythm Gastrointestinal: soft, non-tender Musculoskeletal: muscle tone (normal) Extremities: edema (none) Neurological: confused Labs Result Diagram: 09/05/18 0704 09/05/18 0704 Results 24hrs Laboratory Tests Test 09/05/18 07:04 White Blood Count 11.0 #H Red Blood Count 4.33 L Hemoglobin 12.0 L Hematocrit 38.8 L Mean Corpuscular Volume 89.6 Mean Corpuscular Hemoglobin 27.7 L Mean Corpuscular Hemoglobin Concent 30.9 L Red Cell Distribution Width 16.2 H Platelet Count 141 # Mean Platelet Volume 10.9 H Immature Granulocytes % 0.700 H Neutrophils % 81.4 H Lymphocytes % 9.0 L Monocytes % 8.7 Eosinophils % 0.1 Basophils % 0.1 Nucleated Red Blood Cells % 0.0 Immature Granulocytes # 0.080 H Neutrophils # 9.0 H Lymphocytes # 1.0 Monocytes # 1.0 H Eosinophils # 0.0 Basophils # 0.0 Nucleated Red Blood Cells # 0.0 Sodium Level 144 Potassium Level 4.0 Chloride Level 104 Carbon Dioxide Level 35 H Anion Gap 5 Blood Urea Nitrogen 34 H Creatinine 0.68 Est Glomerular Filtrat Rate mL/min > 60 Glucose Level 75 Calcium Level 9.2 Medications Medications Current Medications Ondansetron HCl (Zofran Inj) 4 mg Q6H PRN IV NAUSEA AND/OR VOMITING; Start 08/26/18 at 23:30 Acetaminophen (Tylenol Supp) 650 mg Q4H PRN [place] PAIN LEVEL 1-3 OR FEVER; Start 08/26/18 at 23:30 Enoxaparin Sodium (Lovenox) 30 mg DAILY SC Last administered on 09/05/18 09:12; Admin Dose 30 MG; Start 08/27/18 at 09:00 Aspirin (Aspirin) 81 mg DAILY PO Last administered on 09/05/18 09:05; Admin Dose 81 MG; Start 08/29/18 at 09:00 Famotidine (Pepcid) 20 mg Q12 PO Last administered on 09/05/18 09:05; Admin Dose 20 MG; Start 08/29/18 at 21:00 Albuterol (Proventil 0.083% (Neb)) 2.5 mg Q6H RESP THERAPY HHN Last administered on 09/05/18 07:41; Admin Dose 2.5 MG; Start 08/29/18 at 21:52 Ipratropium [place] (Atrovent 0.02% (Neb)) 0.5 mg Q6H RESP THERAPY HHN Last administered on 09/05/18 07:41; Admin Dose 0.5 MG; Start 08/29/18 at 21:53 Zolpidem Tartrate (Ambien) 5 mg HS PRN PO INSOMNIA Last administered on 09/04/18 23:03; Admin Dose 5 MG; Start 09/01/18 at 00:00 Amlodipine Besylate (Norvasc) 10 mg DAILY PO Last administered on 09/05/18 09:07; Admin Dose 10 MG; Start 09/01/18 at 15:00 Guaifenesin/ Dextromethorphan (Robitussin Dm Liquid Cup) 5 ml Q6H PRN PO COUGH Last administered on 09/05/18 09:04; Admin Dose 5 ML; Start 09/01/18 at 20:00 Divalproex Sodium (Depakote) 250 mg Q8H PO Last administered on 09/05/18 09:05; Admin Dose 250 MG; Start 09/02/18 at 17:00 Risperidone (Risperdal) 0.5 mg BID PO Last administered on 09/05/18 09:08; Admin Dose 0.5 MG; Start 09/04/18 at 21:00 Morphine Sulfate (morphine) 6 mg Q4H PRN PO [place] PAIN LEVEL 7-10 Last administered on 09/05/18 09:05; Admin Dose 6 MG; Start 09/04/18 at 21:30 MITCHEL DESOUZA Sep 05, 2018 12:40
[2018-09-05 14:00] VITALS: BP 116/79; RESP 18
--- NOTE | 2018-09-05 19:46 | PN ---
Date/Time of Note Date/Time of Note DATE: 09/05/18 TIME: 19:40 Assessment/Plan VTE Prophylaxis [place] [facility] [place]: 9 SCD applied [place] [facility] [place] No SCD contraindicated: other Pharmacological prophylaxis: LMWH Lines/Catheters IV Catheter Type (from [facility]): IJ CENTRAL LINE Urinary Cath still in place: Yes Reason Cath still needed: urinary retention Assessment/Plan Hospital Course Patient continues on supplemental oxygen and breathing treatments. Chest x-ray with worsened aeration with increased bibasilar patchy opacities, worse on the right. That is post Lasix tonight. Continue to monitor. Assessment/Plan -Sepsis with shock, resolving. Dr. Sutton is following in infection disease consultation. -Status post cardiac arrest. Dr. Hernández is following in cardiology consultation. -Left-sided pneumothorax, status post left side chest tube placement, s/p self d/c CT. -Acute respiratory failure, continue ventilatory support bronchodilators. Dr. Molina is following in pulmonology consultation. -Pneumoperitoneum most likely due to cardiac arrest. Dr. Rivas is following in general surgery consultation. -Left axillary and brachial DVT, continue Lovenox -Left lower lobe pneumonia -Severe emphysema -JEREMÍAS with possible chronic kidney disease. Dr Arvizu is following in nephrology consultation. -Schizoaffective disorder depressed type. Psychiatric consult is appreciated, continue Risperdal Depakote Further recommendations based on clinical course. Plan of care discussed with Dr. Juarez. Result Diagram: 09/05/18 0704 09/05/18 0704 Results 24hrs Laboratory Tests Test 09/05/18 07:04 White Blood Count 11.0 #H Red Blood Count 4.33 L Hemoglobin 12.0 L Hematocrit 38.8 L Mean Corpuscular Volume 89.6 Mean Corpuscular Hemoglobin 27.7 L Mean Corpuscular Hemoglobin Concent 30.9 L Red Cell Distribution Width 16.2 H Platelet Count 141 # Mean Platelet Volume 10.9 H Immature Granulocytes % 0.700 H Neutrophils % 81.4 H Lymphocytes % 9.0 L Monocytes % 8.7 Eosinophils % 0.1 Basophils % 0.1 Nucleated Red Blood Cells % 0.0 Immature Granulocytes # 0.080 H Neutrophils # 9.0 H Lymphocytes # 1.0 Monocytes # 1.0 H Eosinophils # 0.0 Basophils # 0.0 Nucleated Red Blood Cells # 0.0 Sodium Level 144 Potassium Level 4.0 Chloride Level 104 Carbon Dioxide Level 35 H Anion Gap 5 Blood Urea Nitrogen 34 H Creatinine 0.68 Est Glomerular Filtrat Rate mL/min > 60 Glucose Level 75 Calcium Level 9.2 Exam/Review of Systems Exam Vitals Vital Signs Date Temp Pulse Resp B/P (MAP) Pulse Ox O2 O2 Flow FiO2 Time Delivery Rate 09/05/18 79 20 92 Nasal 5.0 14:50 Cannula 09/05/18 116/79 14:00 (91) 09/05/18 97.9 08:00 09/05/18 21 07:41 Intake and Output 09/04/18 09/04/18 09/05/18 1515:00 23:00 07:00 IntakeIntake Total 620 ml 950 ml OutputOutput Total 1300 ml 1600 ml 2250 ml BalanceBalance -680 ml -1600 ml -1300 ml Results Results 24hrs Laboratory Tests Test 09/05/18 07:04 White Blood Count 11.0 #H Red Blood Count 4.33 L Hemoglobin 12.0 L Hematocrit 38.8 L Mean Corpuscular Volume 89.6 Mean Corpuscular Hemoglobin 27.7 L Mean Corpuscular Hemoglobin Concent 30.9 L Red Cell Distribution Width 16.2 H Platelet Count 141 # Mean Platelet Volume 10.9 H Immature Granulocytes % 0.700 H Neutrophils % 81.4 H Lymphocytes % 9.0 L Monocytes % 8.7 Eosinophils % 0.1 Basophils % 0.1 Nucleated Red Blood Cells % 0.0 Immature Granulocytes # 0.080 H Neutrophils # 9.0 H Lymphocytes # 1.0 Monocytes # 1.0 H Eosinophils # 0.0 Basophils # 0.0 Nucleated Red Blood Cells # 0.0 Sodium Level 144 Potassium Level 4.0 Chloride Level 104 Carbon Dioxide Level 35 H Anion Gap 5 Blood Urea Nitrogen 34 H Creatinine 0.68 Est Glomerular Filtrat Rate mL/min > 60 Glucose Level 75 Calcium Level 9.2 Medications Medication Current Medications Ondansetron HCl (Zofran Inj) 4 mg Q6H PRN IV NAUSEA AND/OR VOMITING; Start 08/26/18 at 23:30 Acetaminophen (Tylenol Supp) 650 mg Q4H PRN [place] PAIN LEVEL 1-3 OR FEVER; Start 08/26/18 at 23:30 Enoxaparin Sodium (Lovenox) 30 mg DAILY SC Last administered on 09/05/18 09:12; Admin Dose 30 MG; Start 08/27/18 at 09:00 Aspirin (Aspirin) 81 mg DAILY PO Last administered on 09/05/18 09:05; Admin Dose 81 MG; Start 08/29/18 at 09:00 Famotidine (Pepcid) 20 mg Q12 PO Last administered on 09/05/18 09:05; Admin Dose 20 MG; Start 08/29/18 at 21:00 Albuterol (Proventil 0.083% (Neb)) 2.5 mg Q6H RESP THERAPY HHN Last administered on 09/05/18 14:49; Admin Dose 2.5 MG; Start 08/29/18 at 21:52 Ipratropium [place] (Atrovent 0.02% (Neb)) 0.5 mg Q6H RESP THERAPY HHN Last administered on 09/05/18 14:49; Admin Dose 0.5 MG; Start 08/29/18 at 21:53 Zolpidem Tartrate (Ambien) 5 mg HS PRN PO INSOMNIA Last administered on 09/04/18 23:03; Admin Dose 5 MG; Start 09/01/18 at 00:00 Amlodipine Besylate (Norvasc) 10 mg DAILY PO Last administered on 09/05/18 09:07; Admin Dose 10 MG; Start 09/01/18 at 15:00 Guaifenesin/ Dextromethorphan (Robitussin Dm Liquid Cup) 5 ml Q6H PRN PO COUGH Last administered on 09/05/18 09:04; Admin Dose 5 ML; Start 09/01/18 at 20:00 Divalproex Sodium (Depakote) 250 mg Q8H PO Last administered on 09/05/18 17:13; Admin Dose 250 MG; Start 09/02/18 at 17:00 Risperidone (Risperdal) 0.5 mg BID PO Last administered on 09/05/18 09:08; Admin Dose 0.5 MG; Start 09/04/18 at 21:00 Morphine Sulfate (morphine) 6 mg Q4H PRN PO SEVERE PAIN LEVEL 7-10 Last admin istered on 09/05/18 09:05; Admin Dose 6 MG; Start 09/04/18 at 21:30 HERMES HARRIS [birth year], 2019 19:46
[2018-09-05 20:00] VITALS: BP 103/61; PULSE 75; RESP 20
[2018-09-05] MEDS ORDERED: ALBUTEROL/IPRATROPIUM (NEB) 3 ML AMP HHN PRN (20:00)
[2018-09-06] MEDS: DIVALPROEX (EC) 250 MG TAB PO SCH ×3 (01:36→16:33)
[2018-09-06 02:00] VITALS: BP 119/79; PULSE 92; RESP 20
[2018-09-06] MEDS: ALBUTEROL 0.083% (NEB) 2.5 MG/3 ML AMP HHN SCH ×5 (02:14→19:42)
[2018-09-06] MEDS: IPRATROPIUM (NEB) 0.5 MG/2.5 ML AMP HHN SCH ×5 (02:14→19:42)
[2018-09-06 07:21] VITALS: BP 115/74; PULSE 80; RESP 18
[2018-09-06] MEDS: RISPERIDONE 0.25 MG TAB PO SCH (08:35)
[2018-09-06] MEDS: ASPIRIN 81 MG TAB PO SCH (08:36)
[2018-09-06] MEDS: BALSAM PERU/CASTOR OIL 60 GM TUBE TOP SCH (08:36)
[2018-09-06] MEDS: AMLODIPINE 10 MG TAB PO SCH (08:36)
[2018-09-06] MEDS: FAMOTIDINE 20 MG TAB PO SCH ×2 (08:36→20:51)
[2018-09-06] MEDS: ENOXAPARIN 30 MG/0.3 ML SYG SC SCH (08:38)
--- NOTE | 2018-09-06 10:14 | PN ---
DATE: 09/06/2018 SUBJECTIVE: The patient is stable, no events noted. OBJECTIVE: VITAL SIGNS: Blood pressure is 115/74, pulse 80, respiration 19, temperature 98.6. HEENT: Head is normocephalic. NECK: Supple. HEART: Regular rate. LUNGS: Show diminished breath sounds at base. ABDOMEN: Soft, nontender to palpation without rebound or guarding. EXTREMITIES: Negative for clubbing, cyanosis. Trace edema. DERMATOLOGIC: No rashes. MUSCULOSKELETAL: No joint effusion. NEUROLOGIC: No change in exam. MEDICATIONS: The patient's medications have been reviewed. Chest x-ray was reviewed. LABORATORY DATA: Shows white count 11.3, hemoglobin 12.1, platelet count is 132. Sodium 144, potass ium 4.0, BUN 34, creatinine 0.68. ASSESSMENT AND PLAN: 1. Nonoliguric acute kidney injury with unknown baseline creatinine. Etiology is secondary to hemod ynamics. Renal function is improved. Continue current treatment plan. 2. Hyponatremia, improved. Continue to encourage free water intake. 3. Anemia. Monitor hemoglobin and hematocrit levels. 4. Mineral bone disorder. Monitor calcium and phosphorus levels. 5. Volume overload. Etiology may be secondary to diastolic heart failure, recent IV hydration. The patient is on intermittent diuretic therapy. We will continue to monitor. 6. Respiratory failure. The patient is on 3 liters nasal cannula. Continue current medical managem ent. Continue nebulizers, intermittent diuretic therapy. 7. Sepsis, status post shock. The patient is completing antibiotic course. 8. Status post cardiac arrest. 9. Encephalopathy. 10. Status post pneumothorax. Dictated By: JOE CHU/DUKE Conf#: [id number] DID#: [id number] CC: WENDY LOVE MD;*EndCC*
[2018-09-06 14:47] VITALS: BP 108/60; PULSE 81
[2018-09-06] MEDS ORDERED: VANCOMYCIN IV PER PHARMACY XX SCH (15:00)
--- NOTE | 2018-09-06 15:09 | CONS ---
Assessment/Plan Assessment/Plan Hospital Course (Demo Recall) Patient is more confused today and more congested with lots of secretions. No fevers is saturating 88-90% on nasal cannula WBC 11.3 platelets 132 neutrophils 76.9 BUN 30 creatinine 0.75 Chest x-ray from yesterday revealed worsening aeration with increased bibasilar basilar patchy opacities, worse on the right Physical examination: Well-developed chronically ill-appearing cachectic elderly man who is very confused and sound congested. Head atraumatic normocephalic sclera nonicteric vehicle mucosa dry neck is supple chest rise symmetrical breath sounds diminished bases. Heart: S1-S2. Abdomen soft bowel sounds present. Extremities cyanotic Assessment: 1. Hypoxemia/HCAP, poss aspiration 1. S/p septic shock 3. Status post acute hypoxemic respiratory failure requiring intubation 4. Pneumoperitoneum of unclear etiology, no perforation per surgical note 5. Pancytopenia 5. Anemia 6. Non-ST elevation SC 7. Status post cardiac arrest 8. RIJ TLC Plan: Start brd sp abx, consider dc central line, f/u cxr in am Consultation Date/Type/Reason Admit Date/Time Aug 27, 2018 at 00:03 Initial Consult Date 08/27/18 Type of Consult ID Requesting Provider: VIVIANA NOLAN MD Date/Time of Note DATE: 09/06/18 TIME: 15:06 Exam/Review of Systems Exam Vitals Vital Signs Date Temp Pulse Resp B/P (MAP) Pulse Ox O2 O2 Flow FiO2 Time Delivery Rate 09/06/18 98.8 81 108/60 87 Nasal 14:47 (76) Cannula 09/06/18 3.0 09:09 09/06/18 18 07:21 09/05/18 21 07:41 Intake and Output 09/05/18 09/05/18 09/06/18 1515:00 23:00 07:00 IntakeIntake Total 240 ml 380 ml OutputOutput Total 1400 ml BalanceBalance -1160 ml 380 ml Results Result Diagram: 09/06/18 0633 09/06/18 0633 Results 24hrs Laboratory Tests Test 09/06/18 06:33 White Blood Count 11.3 H Red Blood Count 4.30 L Hemoglobin 12.1 L Hematocrit 38.8 L Mean Corpuscular Volume 90.2 Mean Corpuscular Hemoglobin 28.1 L Mean Corpuscular Hemoglobin Concent 31.2 L Red Cell Distribution Width 16.3 H Platelet Count 132 L Mean Platelet Volume 11.1 H Immature Granulocytes % 0.400 Neutrophils % 76.9 Lymphocytes % 13.8 L Monocytes % 7.0 Eosinophils % 1.6 Basophils % 0.3 Nucleated Red Blood Cells % 0.0 Immature Granulocytes # 0.040 H Neutrophils # 8.7 H Lymphocytes # 1.6 Monocytes # 0.8 Eosinophils # 0.2 Basophils # 0.0 Nucleated Red Blood Cells # 0.0 Sodium Level 138 Potassium Level 4.4 Chloride Level 102 Carbon Dioxide Level 35 H Anion Gap 1 L Blood Urea Nitrogen 30 H Creatinine 0.75 Est Glomerular Filtrat Rate mL/min > 60 Glucose Level 77 Calcium Level 9.1 Phosphorus Level 2.6 Magnesium Level 2.1 Medications Medication Current Medications Ondansetron HCl (Zofran Inj) 4 mg Q6H PRN IV NAUSEA AND/OR VOMITING; Start 08/26/18 at 23:30 Acetaminophen (Tylenol Supp) 650 mg Q4H PRN [place] PAIN LEVEL 1-3 OR FEVER; Start 08/26/18 at 23:30 Enoxaparin Sodium (Lovenox) 30 mg DAILY SC Last administered on 09/06/18 08:38; Admin Dose 30 MG; Start 08/27/18 at 09:00 Aspirin (Aspirin) 81 mg DAILY PO Last administered on 09/06/18 08:36; Admin Dose 81 MG; Start 08/29/18 at 09:00 Famotidine (Pepcid) 20 mg Q12 PO Last administered on 09/06/18 08:36; Admin Dose 20 MG; Start 08/29/18 at 21:00 Albuterol (Proventil 0.083% (Neb)) 2.5 mg Q6H RESP THERAPY HHN Last a dministered on 09/06/18 09:04; Admin Dose 2.5 MG; Start 08/29/18 at 21:52 Ipratropium [place] (Atrovent 0.02% (Neb)) 0.5 mg Q6H RESP THERAPY HHN Last administered on 09/06/18 09:04; Admin Dose 0.5 MG; Start 08/29/18 at 21:53 Zolpidem Tartrate (Ambien) 5 mg HS PRN PO INSOMNIA Last administered on 1/30/19at 23:03; Admin Dose 5 MG; Start 09/01/18 at 00:00 Amlodipine Besylate (Norvasc) 10 mg DAILY PO Last administered on 09/06/18at 08:36; Admin Dose 10 MG; Start 09/01/18 at 15:00 Guaifenesin/ Dextromethorphan (Robitussin Dm Liquid Cup) 5 ml Q6H PRN PO COUGH Last administered on 09/05/18at 09:04; Admin Dose 5 ML; Start 09/01/18 at 20:00 Divalproex Sodium (Depakote) 250 mg Q8H PO Last administered on 09/06/18at 08:35; Admin Dose 250 MG; Start 09/02/18 at 17:00 Morphine Sulfate (morphine) 6 mg Q4H PRN PO SEVERE PAIN LEVEL 7-10 Last administered on 09/05/18at 09:05; Admin Dose 6 MG; Start 09/04/18 at 21:30 Albuterol/ Ipratropium (Duoneb) 3 ml Q3H RESP THERAPY PRN HHN SHORTNESS OF BREATH; Start 09/05/18 at 20:00 Risperidone (Risperdal) 1 mg BID PO ; Start 09/06/18 at 21:00 Vancomycin HCl (Vanco Iv Per Pharmacy) VANCOMYCIN PER PHARMACY PER PROTOCOL XX ; Start 09/06/18 at 15:00 Meropenem/Sodium Chloride 50 ml @ 100 mls/hr Q12 IVPB ; Start 09/06/18 at 15:00 Vancomycin HCl 1.25 gm/Sodium Chloride 250 ml @ 83.333 mls/ hr LOADING DOSE ONCE IVPB ; Start 09/06/18 at 16:00; Stop 09/06/18 at 18:59 AALIYAH MEZA NP Sep 06, 2018 15:08
[2018-09-06] MEDS: MEROPENEM 1 GM/50ML(PMX) 50 ML IVPB SCH ×2 (15:34→20:51)
[2018-09-06] MEDS ORDERED: VANCOMYCIN HCL 1.25 GM in SOD CHLORIDE 0.9% 250 ML IVPB ONE (16:00)
--- NOTE | 2018-09-06 16:05 | CONS ---
Assessment/Plan Assessment/Plan Hospital Course (Demo Recall) IMP: 1.Hypotension-Now improved off levo and tolerating norvasc. NL EF by echo this admit 2.resp failure s/p extubation 3.cardiac arrest 4.pneumoperitoneum-resolved 5.Positive troponin-now trended neg 6.renal failure-improved 7.Leukocytosis 8. anemia 9, Thrombocytopenia-ongoing some mild improvement Recc: -Now on med-surg -Continue norvasc -Continue asa -s/p abx's -started on risperdal -follow MS closely -Follow volume status clsoely and give dose of lasix Consultation Date/Type/Reason Admit Date/Time Aug 27, 2018 at 00:03 Initial Consult Date 08/27/18 Type of Consult Cardiology Reason for Consultation positive troponin Requesting Provider: VIVIANA NOLAN MD Date/Time of Note DATE: 09/06/18 TIME: 16:02 Exam/Review of Systems Vital Signs Vitals Vital Signs Date Temp Pulse Resp B/P (MAP) Pulse Ox O2 O2 Flow FiO2 Time Delivery Rate 09/06/18 85 20 88 Nasal 5.0 15:11 Cannula 09/06/18 98.8 108/60 14:47 (76) 09/05/18 21 07:41 Intake and Output 09/05/18 09/05/18 09/06/18 1515:00 23:00 07:00 IntakeIntake Total 240 ml 380 ml OutputOutput Total 1400 ml BalanceBalance -1160 ml 380 ml Exam Exam Review of Systems: CONSTITUTIONAL: No fevers, chills. PULMONARY: No sob CARDIOVASCULAR: No chest pain/palpitations GASTROINTESTINAL: No nausea/vomiting. GENITOURINARY: No hematuria/dysuria. MUSCULOSKELETAL: No myagias/arthalgias. PSYCHIATRIC: The patient denies depression. NEUROLOGIC: No weakness Constitutional: other (sleeping) Psych: no complaints Head: normocephalic ENMT: mucosa pink and moist Neck: supple, jvd (9 cm water) Respiratory: clear to auscultation Cardiovascular: regular rate and rhythm Gastrointestinal: soft Musculoskeletal: muscle tone (normal) Extremities: edema (none) Neurological: other (No focal deficits) Labs Result Diagram: 09/06/18 0633 09/06/18 0633 Results 24hrs Laboratory Tests Test 09/06/18 06:33 White Blood Count 11.3 H Red Blood Count 4.30 L Hemoglobin 12.1 L Hematocrit 38.8 L Mean Corpuscular Volume 90.2 Mean Corpuscular Hemoglobin 28.1 L Mean Corpuscular Hemoglobin Concent 31.2 L Red Cell Distribution Width 16.3 H Platelet Count 132 L Mean Platelet Volume 11.1 H Immature Granulocytes % 0.400 Neutrophils % 76.9 Lymphocytes % 13.8 L Monocytes % 7.0 Eosinophils % 1.6 Basophils % 0.3 Nucleated Red Blood Cells % 0.0 Immature Granulocytes # 0.040 H Neutrophils # 8.7 H Lymphocytes # 1.6 Monocytes # 0.8 Eosinophils # 0.2 Basophils # 0.0 Nucleated Red Blood Cells # 0.0 Sodium Level 138 Potassium Level 4.4 Chloride Level 102 Carbon Dioxide Level 35 H Anion Gap 1 L Blood Urea Nitrogen 30 H Creatinine 0.75 Est Glomerular Filtrat Rate mL/min > 60 Glucose Level 77 Calcium Level 9.1 Phosphorus Level 2.6 Magnesium Level 2.1 Medications Medications Current Medications Ondansetron HCl (Zofran Inj) 4 mg Q6H PRN IV NAUSEA AND/OR VOMITING; Start 08/26/18 at 23:30 Acetaminophen (Tylenol Supp) 650 mg Q4H PRN [place] PAIN LEVEL 1-3 OR FEVER; Start 08/26/18 at 23:30 Enoxaparin Sodium (Lovenox) 30 mg DAILY SC Last administered on 09/06/18 08:38; Admin Dose 30 MG; Start 08/27/18 at 09:00 Aspirin (Aspirin) 81 mg DAILY PO Last administered on 09/06/18 08:36; Admin Dose 81 MG; Start 08/29/18 at 09:00 Famotidine (Pepcid) 20 mg Q12 PO Last administered on 09/06/18 08:36; Admin Dose 20 MG; Start 08/29/18 at 21:00 Albuterol (Proventil 0.083% (Neb)) 2.5 mg Q6H RESP THERAPY HHN Last administered on 09/06/18 15:09; Admin Dose 2.5 MG; Start 08/29/18 at 21:52 Ipratropium [place] (Atrovent 0.02% (Neb)) 0.5 mg Q6H RESP THERAPY HHN Last administered on 09/06/18 15:09; Admin Dose 0.5 MG; Start 08/29/18 at 21:53 Zolpidem Tartrate (Ambien) 5 mg HS PRN PO INSOMNIA Last administered on 09/04/18at 23:03; Admin Dose 5 MG; Start 09/01/18 at 00:00 Amlodipine Besylate (Norvasc) 10 mg DAILY PO Last administered on 09/06/18at 08:36; Admin Dose 10 MG; Start 09/01/18 at 15:00 Guaifenesin/ Dextromethorphan (Robitussin Dm Liquid Cup) 5 ml Q6H PRN PO COUGH Last administered on 09/05/18at 09:04; Admin Dose 5 ML; Start 09/01/18 at 20:00 Divalproex Sodium (Depakote) 250 mg Q8H PO Last administered on 09/06/18at 08:35; Admin Dose 250 MG; Start 09/02/18 at 17:00 Morphine Sulfate (morphine) 6 mg Q4H PRN PO SEVERE PAIN LEVEL 7-10 Last administered on 09/05/18at 09:05; Admin Dose 6 MG; Start 09/04/18 at 21:30 Albuterol/ Ipratropium (Duoneb) 3 ml Q3H RESP THERAPY PRN HHN SHORTNESS OF BREATH; Start 09/05/18 at 20:00 Risperidone (Risperdal) 1 mg BID PO ; Start 09/06/18 at 21:00 Vancomycin HCl (Vanco Iv Per Pharmacy) VANCOMYCIN PER PHARMACY PER PROTOCOL XX ; Start 09/06/18 at 15:00 Meropenem/Sodium Chloride 50 ml @ 100 mls/hr Q12 IVPB Last administered on 09/06/18at 15:34; Admin Dose 100 MLS/HR; Start 09/06/18 at 15:00 Vancomycin HCl 1.25 gm/Sodium Chloride 250 ml @ 83.333 mls/ hr LOADING DOSE ONCE IVPB ; Start 09/06/18 at 16:00; Stop 09/06/18 at 18:59 MITCHEL DESOUZA Sep 06, 2018 16:05
[2018-09-06] MEDS ORDERED: FUROSEMIDE 20 MG INJ IV ONE (16:30)
--- NOTE | 2018-09-06 17:51 | PN ---
Date/Time of Note Date/Time of Note DATE: 09/06/18 TIME: 17:50 Assessment/Plan VTE Prophylaxis Risk score (from [facility] [place]0 risk: 10 SCD applied (from [facility]): No SCD contraindicated: other Pharmacological prophylaxis: other Lines/Catheters [facility] Type (from [facility] IJ CENTRAL LINE Urinary Cath still in place: Yes Reason Cath still needed: urinary retention Assessment/Plan Assessment/Plan -Sepsis with shock, resolving. Dr. Sutton is following in infection disease consultation. -Status post cardiac arrest. Dr. Hernández is following in cardiology consultation. -Left-sided pneumothorax, status post left side chest tube placement, s/p self d /c CT. -Acute respiratory failure, continue ventilatory support bronchodilators. Dr. Molina is following in pulmonology consultation. -Pneumoperitoneum most likely due to cardiac arrest. Dr. Rivas is following in general surgery consultation. -Left axillary and brachial DVT, continue Lovenox -Left lower lobe pneumonia -Severe emphysema -JEREMÍAS with possible chronic kidney disease. Dr Arvizu is following in nephrology consultation. -Schizoaffective disorder depressed type. Psychiatric consult is appreciated, continue Risperdal Depakote Further recommendations based on clinical course. Plan of care discussed with Dr. Juarez. Result Diagram: 09/06/18 0633 09/06/18 0633 Results 24hrs Laboratory Tests Test 09/06/18 06:33 White Blood Count 11.3 H Red Blood Count 4.30 L Hemoglobin 12.1 L Hematocrit 38.8 L Mean Corpuscular Volume 90.2 Mean Corpuscular Hemoglobin 28.1 L Mean Corpuscular Hemoglobin Concent 31.2 L Red Cell Distribution Width 16.3 H Platelet Count 132 L Mean Platelet Volume 11.1 H Immature Granulocytes % 0.400 Neutrophils % 76.9 Lymphocytes % 13.8 L Monocytes % 7.0 Eosinophils % 1.6 Basophils % 0.3 Nucleated Red Blood Cells % 0.0 Immature Granulocytes # 0.040 H Neutrophils # 8.7 H Lymphocytes # 1.6 Monocytes # 0.8 Eosinophils # 0.2 Basophils # 0.0 Nucleated Red Blood Cells # 0.0 Sodium Level 138 Potassium Level 4.4 Chloride Level 102 Carbon Dioxide Level 35 H Anion Gap 1 L Blood Urea Nitrogen 30 H Creatinine 0.75 Est Glomerular Filtrat Rate mL/min > 60 Glucose Level 77 Calcium Level 9.1 Phosphorus Level 2.6 Magnesium Level 2.1 Subjective 24 Hr Interval Summary Constitutional: requiring O2 Eyes: no complaints ENT: no complaints Respiratory: shortness of breath Cardiovascular: no complaints Gastrointestinal: no complaints Genitourinary: no complaints Exam/Review of Systems Exam Vitals Vital Signs Date Temp Pulse Resp B/P (MAP) Pulse Ox O2 O2 Flow FiO2 Time Delivery Rate 09/06/18 85 20 88 Nasal 5.0 15:11 Cannula 09/06/18 98.8 108/60 14:47 (76) 09/05/18 21 07:41 Intake and Output 09/05/18 09/05/18 09/06/18 1515:00 23:00 07:00 IntakeIntake Total 240 ml 380 ml OutputOutput Total 1400 ml BalanceBalance -1160 ml 380 ml Constitutional: alert, frail Psych: no complaints Head: normocephalic Eyes: EOMI, nl lids, nl sclera ENMT: nl external ears & nose Neck: supple Respiratory: diminished breath sounds Cardiovascular: nl pulses, other (S1S2) Gastrointestinal: soft, non-tender Musculoskeletal: muscle weakness Extremities: normal pulses Neurological: nl speech, other (alert/responsive) Lymph: nontender Results Results 24hrs Laboratory Tests Test 09/06/18 06:33 White Blood Count 11.3 H Red Blood Count 4.30 L Hemoglobin 12.1 L Hematocrit 38.8 L Mean Corpuscular Volume 90.2 Mean Corpuscular Hemoglobin 28.1 L Mean Corpuscular Hemoglobin Concent 31.2 L Red Cell Distribution Width 16.3 H Platelet Count 132 L Mean Platelet Volume 11.1 H Immature Granulocytes % 0.400 Neutrophils % 76.9 Lymphocytes % 13.8 L Monocytes % 7.0 Eosinophils % 1.6 Basophils % 0.3 Nucleated Red Blood Cells % 0.0 Immature Granulocytes # 0.040 H Neutrophils # 8.7 H Lymphocytes # 1.6 Monocytes # 0.8 Eosinophils # 0.2 Basophils # 0.0 Nucleated Red Blood Cells # 0.0 Sodium Level 138 Potassium Level 4.4 Chloride Level 102 Carbon Dioxide Level 35 H Anion Gap 1 L Blood Urea Nitrogen 30 H Creatinine 0.75 Est Glomerular Filtrat Rate mL/min > 60 Glucose Level 77 Calcium Level 9.1 Phosphorus Level 2.6 Magnesium Level 2.1 Medications Medication Current Medications Ondansetron HCl (Zofran Inj) 4 mg Q6H PRN IV NAUSEA AND/OR VOMITING; Start 08/26/18 at 23:30 Acetaminophen (Tylenol Supp) 650 mg Q4H PRN [place] PAIN LEVEL 1-3 OR FEVER; Start 08/26/18 at 23:30 Enoxaparin Sodium (Lovenox) 30 mg DAILY SC Last administered on 09/06/18 08:38; Admin Dose 30 MG; Start 08/27/18 at 09:00 Aspirin (Aspirin) 81 mg DAILY PO Last administered on 09/06/18 08:36; Admin Dose 81 MG; Start 08/29/18 at 09:00 Famotidine (Pepcid) 20 mg Q12 PO Last administered on 09/06/18 08:36; Admin Dose 20 MG; Start 08/29/18 at 21:00 Albuterol (Proventil 0.083% (Neb)) 2.5 mg Q6H RESP THERAPY HHN Last administered on 09/06/18 15:09; Admin Dose 2.5 MG; Start 08/29/18 at 21:52 Ipratropium [place] (Atrovent 0.02% (Neb)) 0.5 mg Q6H RESP THERAPY HHN Last administered on 09/06/18 15:09; Admin Dose 0.5 MG; Start 08/29/18 at 21:53 Zolpidem Tartrate (Ambien) 5 mg HS PRN PO INSOMNIA Last administered on 09/04/18 23:03; Admin Dose 5 MG; Start 09/01/18 at 00:00 Amlodipine Besylate (Norvasc) 10 mg DAILY PO Last administered on 09/06/18 08:36; Admin Dose 10 MG; Start 09/01/18 at 15:00 Guaifenesin/ Dextromethorphan (Robitussin Dm Liquid Cup) 5 ml Q6H PRN PO COUGH Last administered on 09/05/18 09:04; Admin Dose 5 ML; Start 09/01/18 at 20:00 Divalproex Sodium (Depakote) 250 mg Q8H PO Last administered on 09/06/18 16:33; Admin Dose 250 MG; Start 09/02/18 at 17:00 Morphine Sulfate (morphine) 6 mg Q4H PRN PO SEVERE PAIN LEVEL 7-10 Last administered on 1/31/19at 09:05; Admin Dose 6 MG; Start 09/04/18 at 21:30 Albuterol/ Ipratropium (Duoneb) 3 ml Q3H RESP THERAPY PRN HHN SHORTNESS OF BREATH; Start 09/05/18 at 20:00 Risperidone (Risperdal) 1 mg BID PO ; Start 09/06/18 at 21:00 Vancomycin HCl (Vanco Iv Per Pharmacy) VANCOMYCIN PER PHARMACY PER PROTOCOL XX ; Start 09/06/18 at 15:00 Meropenem/Sodium Chloride 50 ml @ 100 mls/hr Q12 IVPB Last administered on 09/06/18at 15:34; Admin Dose 100 MLS/HR; Start 09/06/18 at 15:00 Vancomycin HCl 1.25 gm/Sodium Chloride 250 ml @ 83.333 mls/ hr LOADING DOSE ONCE IVPB Last administered on 09/06/18at 16:26; Admin Dose 83.333 MLS/HR; Start 09/06/18 at 16:00; Stop 09/06/18 at 18:59 KEDAR LUGO Sep 06, 2018 17:51
[2018-09-06 20:00] VITALS: BP 119/76; PULSE 97; RESP 16
[2018-09-06] MEDS: RISPERIDONE 1 MG TAB PO SCH (20:51)
[2018-09-07] VITALS (61 sets, daily range): BP systolic 71–150; BP diastolic 56–79; PULSE 62–92; RESP 15–24
[2018-09-07] MEDS: DIVALPROEX (EC) 250 MG TAB PO SCH ×3 (01:03→20:56)
[2018-09-07] MEDS: IPRATROPIUM (NEB) 0.5 MG/2.5 ML AMP HHN SCH ×4 (01:04→20:38)
[2018-09-07] MEDS: ALBUTEROL 0.083% (NEB) 2.5 MG/3 ML AMP HHN SCH ×4 (01:05→20:38)
[2018-09-07] MEDS ORDERED: VANCOMYCIN 750 MG (PMX) 250 ML IVPB SCH (05:00)
[2018-09-07] MEDS ORDERED: MIDAZOLAM 1 MG/ML 2 ML INJ ONE (07:00)
[2018-09-07] MEDS ORDERED: ETOMIDATE 20 MG INJ ONE (07:00)
[2018-09-07] MEDS ORDERED: NORepinephrine 8MG/250 ML BAG ONE (07:00)
[2018-09-07] MEDS ORDERED: VECURONIUM 10 MG VIAL ONE (07:00)
[2018-09-07] MEDS: morphine LIQ (10 MG/5 ML) CUP PO PRN (07:18)
[2018-09-07] MEDS: MEROPENEM 1 GM/50ML(PMX) 50 ML IVPB SCH ×2 (08:29→20:57)
[2018-09-07] MEDS: FAMOTIDINE 20 MG TAB PO SCH ×2 (08:29→20:56)
[2018-09-07] MEDS: RISPERIDONE 1 MG TAB PO SCH ×2 (08:29→20:57)
[2018-09-07] MEDS: ASPIRIN 81 MG TAB PO SCH (08:29)
[2018-09-07] MEDS: AMLODIPINE 10 MG TAB PO SCH ×2 (08:35→08:36)
[2018-09-07] MEDS: BALSAM PERU/CASTOR OIL 60 GM TUBE TOP SCH (08:35)
[2018-09-07] MEDS: ENOXAPARIN 30 MG/0.3 ML SYG SC SCH (08:36)
[2018-09-07] MEDS ORDERED: morphine 4 MG/ML VIAL IV STA (09:52)
[2018-09-07] MEDS ORDERED: FUROSEMIDE 40 MG INJ ONE (09:56)
[2018-09-07] MEDS ORDERED: FUROSEMIDE 40 MG INJ IV ONE (10:00)
--- NOTE | 2018-09-07 10:35 | CONS ---
Assessment/Plan Assessment/Plan Assessment/Plan (Daily) ABG showing severe respiratory acidosis. Chest x-ray was reviewed from of this month which is showing severe emphysematous changes. Assessment recommendations; 1. Patient initially admitted for respiratory failure was then sent to medical floor after he self extubated, patient also required a left-sided chest tube for pneumothorax, which he also pulled out himself. 2. Underlying severe emphysema. 3. Pneumoperitoneum on admission, etiology uncertain. Patient however did not require any intervention. 4. Currently there is no indication of any ongoing infective process. Patient will need to be intubated because of severe agitation as well as underlying severe emphysema. Patient is very agitated and is unable to handle any kind of supportive devices. Will resume Solu-Medrol 40 mg every 6 hours. Patient also will require sedation. Will initiate tube feeding. Meanwhile consider stopping antibiotics. 35 minutes of critical care time was spent evaluating the patient. Exclusive of any procedures. Consultation Date/Type/Reason Admit Date/Time Aug 27, 2018 at 00:03 Initial Consult Date 08/27/18 Type of Consult Pulmonary/critical care Patient is a 68-year-old male who is a [facility] resident was sent over to the hospital because of hypothermia and altered mental status. In the emergency room, patient developed cardiac arrest requiring CPR and intubation. In the course of workup the patient also required a chest tube placement on the left side. CT imaging of the abdomen showed pneumoperitoneum with possibly perforated viscus. By the time I saw the patient in ICU, patient is orally intubated and sedated. History was obtained from medical records. Past medical history; essentially unremarkable except for possibly COPD. Medications; reviewed. Patient is currently on dopamine at 6 mics per kilogram per minute, Levophed 20 mics per minute, propofol 25 mics per kilogram per minute. Other medications were also reviewed. Allergies; none. Social history; not available. Family history and occupational history is also not available. Review of system; unable to be obtained. General exam; elderly male, orally intubated, sedated, currently in no distress. Requesting Provider: VIVIANA NOLAN MD Date/Time of Note DATE: 09/07/18 TIME: 10:32 24 HR Interval Summary Free Text/Dictation Patient's condition became unstable short while ago, rapid response was called in. Stat ABG was done which is showing severe respiratory acidosis with marked hypercapnia. Patient is also quite agitated and refusing to wear oxygen or any other supportive devices. Patient now has been transferred to ICU. And in the process of being intubated. General exam; elderly male, awake but agitated. Exam/Review of Systems Exam Vitals Vital Signs Date Temp Pulse Resp B/P (MAP) Pulse Ox O2 O2 Flow FiO2 Time Delivery Rate 09/07/18 6.0 08:06 09/07/18 85 22 96 Nasal 08:00 Cannula 09/07/18 97.9 98/68 (78) 08:00 09/05/18 21 07:41 Intake and Output 09/06/18 09/06/18 09/07/18 1515:00 23:00 07:00 IntakeIntake Total 970 ml 500 ml OutputOutput Total 1200 ml BalanceBalance -230 ml 500 ml Exam HEENT exam; supple neck, no JVD. No lymphadenopathy. Midline trachea. No thyromegaly. No neck masses. Chest exam; diminished breath sounds throughout. S1-S2 audible, no murmurs. Regular rhythm. Dressing applied over left chest wall. Abdomen exam; soft, nondistended. Scaphoid. Bowel sounds audible. Extremity exam; peripheral edema. SAMPLE FINISHER exam; awake and follows simple commands. Results Result Diagram: 09/07/18 0531 09/07/18 0531 Results 24hrs Laboratory Tests Test 09/07/18 05:31 09/07/18 09:54 White Blood Count 7.2 # Red Blood Count 3.91 L Hemoglobin 10.7 L Hematocrit 35.2 L Mean Corpuscular Volume 90.0 Mean Corpuscular Hemoglobin 27.4 L Mean Corpuscular Hemoglobin Concent 30.4 L Red Cell Distribution Width 16.0 H Platelet Count 102 #L Mean Platelet Volume 11.3 H Immature Granulocytes % 0.400 Neutrophils % 75.1 Lymphocytes % 15.4 Monocytes % 6.2 Eosinophils % 2.9 Basophils % 0.0 Nucleated Red Blood Cells % 0.0 Immature Granulocytes # 0.030 Neutrophils # 5.4 Lymphocytes # 1.1 Monocytes # 0.5 Eosinophils # 0.2 Basophils # 0.0 Nucleated Red Blood Cells # 0.0 Sodium Level 140 Potassium Level 4.8 Chloride Level 100 Carbon Dioxide Level 38 H Anion Gap 2 L Blood Urea Nitrogen 32 H Creatinine 0.90 Est Glomerular Filtrat Rate mL/min > 60 Glucose Level 75 Calcium Level 9.2 Blood Gas Specimen Source Blood arterial Arterial Blood Date Drawn 09/07/2018 9:53:09 AM Arterial Blood pH (Temp corrected) 7.179 *L Arterial Blood pCO2 (Temp correct) 94.6 *H Arterial Blood pO2 (Temp corrected) 59.5 L Arterial Blood HCO3 34.4 H Arterial Blood Base Excess 3.2 H Arterial Blood Oxygen Saturation 83.7 L Miller Test ACCEPTAB Arterial Blood Gas Puncture Site Right Radial Arterial Blood Carboxyhemoglobin 0.8 Arterial Blood Methemoglobin 0.1 Blood Gas A-a O2 Differential 271.6 H Oxyhemoglobin Percent 82.9 L Blood Gas Temperature 37.0 Blood Gas Modality MASK - SIMPLE FiO2 61.0 Blood Gas Critical Value Read Back Torsten MAGUIRE RN Blood Gas Notified Whom Blood Gas Notified Time 09/07/2018 10:00:43 AM Medications Medication Current Medications Ondansetron HCl (Zofran Inj) 4 mg Q6H PRN IV NAUSEA AND/OR VOMITING Last administered on 09/06/18 18:46; Admin Dose 4 MG; Start 08/26/18 at 23:30 Acetaminophen (Tylenol Supp) 650 mg Q4H PRN [place] PAIN LEVEL 1-3 OR FEVER; Start 08/26/18 at 23:30 Enoxaparin Sodium (Lovenox) 30 mg DAILY SC Last administered on 09/06/18 08:38; Admin Dose 30 MG; Start 08/27/18 at 09:00 Aspirin (Aspirin) 81 mg DAILY PO Last administered on 09/07/18 08:29; Admin Dose 81 MG; Start 08/29/18 at 09:00 Famotidine (Pepcid) 20 mg Q12 PO Last administered on 09/07/18 08:29; Admin Dose 20 MG; Start 08/29/18 at 21:00 Albuterol (Proventil 0.083% (Neb)) 2.5 mg Q6H RESP THERAPY HHN Last administer ed on 09/07/18 07:59; Admin Dose 2.5 MG; Start 08/29/18 at 21:52 Ipratropium [place] (Atrovent 0.02% (Neb)) 0.5 mg Q6H RESP THERAPY HHN Last administered on 09/07/18 07:59; Admin Dose 0.5 MG; Start 08/29/18 at 21:53 Zolpidem Tartrate (Ambien) 5 mg HS PRN PO INSOMNIA Last administered on 09/04/18 23:03; Admin Dose 5 MG; Start 09/01/18 at 00:00 Amlodipine Besylate (Norvasc) 10 mg DAILY PO Last administered on 09/06/18 08:36; Admin Dose 10 MG; Start 09/01/18 at 15:00 Guaifenesin/ Dextromethorphan (Robitussin Dm Liquid Cup) 5 ml Q6H PRN PO COUGH Last administered on 09/05/18 09:04; Admin Dose 5 ML; Start 09/01/18 at 20:00 Divalproex Sodium (Depakote) 250 mg Q8H PO Last administered on 09/07/18 08:29; Admin Dose 250 MG; Start 09/02/18 at 17:00 Morphine Sulfate (morphine) 6 mg Q4H PRN PO SEVERE PAIN LEVEL 7-10 Last administered on 09/07/18 07:18; Admin Dose 6 MG; Start 09/04/18 at 21:30 Albuterol/ Ipratropium (Duoneb) 3 ml Q3H RESP THERAPY PRN HHN SHORTNESS OF BREATH; Start 09/05/18 at 20:00 Risperidone (Risperdal) 1 mg BID PO Last administered on 09/07/18 08:29; Admin Dose 1 MG; Start 09/06/18 at 21:00 Vancomycin HCl (Vanco Iv Per Pharmacy) VANCOMYCIN PER PHARMACY PER PROTOCOL XX ; Start 09/06/18 at 15:00 Meropenem/Sodium Chloride 50 ml @ 100 mls/hr Q12 IVPB Last administered on 09/07/18 08:29; Admin Dose 100 MLS/HR; Start 09/06/18 at 15:00 Vancomycin/Sodium Chloride 250 ml @ 125 mls/hr Q12H IVPB ; Start 09/07/18 at 18:00 Miscellaneous Information (*Rx Drug Level Order Reminder*) VANCO TROUGH 2/3 @ 0,500 ONCE ONCE XX ; Start 09/08/18 at 05:00; Stop 09/08/18 at 05:01 GAMALIEL BASILIO Sep 07, 2018 10:35
[2018-09-07] MEDS: NORepinephrine 8MG/250 ML (PMX 250 ML IV SCH (10:45)
[2018-09-07] MEDS ORDERED: ALTEPLASE (CATHFLO) 2 MG INJ CATHETER PRN (11:00)
[2018-09-07] MEDS: PROPOFOL 100 ML IV SCH ×2 (11:00→22:38)
--- NOTE | 2018-09-07 11:29 | PN ---
DATE: 09/07/2018 SUBJECTIVE: The patient this morning had a rapid response. The patient was tachypneic, short of stanislav ath, was placed on nonrebreather, given IV diuretics and transferred to intensive care unit. Overnig ht, no other acute events noted. No hemoptysis, hematemesis, hematochezia. OBJECTIVE: VITAL SIGNS: Blood pressure 90/68, respirations 22, pulse 85, temperature 97.9. HEENT: Head is normocephalic. NECK: Supple. HEART: Regular rate. LUNGS: Show diminished breath sounds at the base. ABDOMEN: Soft, nontender to palpation without rebound or guarding. EXTREMITIES: Negative for clubbing, cyanosis. Positive edema. DERMATOLOGIC: No rashes. MUSCULOSKELETAL: No joint effusion. NEUROLOGIC: No change in exam. MEDICATIONS: The patient's medications have been reviewed. LABORATORY DATA: Shows a sodium 140, BUN 32, creatinine 0.98. ABG shows pH 7.17, pCO2 of 94. White count 7.2, hemoglobin 10.7. ASSESSMENT AND PLAN: 1. Nonoliguric acute kidney injury with unknown baseline creatinine. Etiology of acute kidney injur y is secondary to hemodynamics. Renal function is improved. Continue current treatment plans, suppo rtive care, renally dose all meds. 2. Hypernatremia, improved. Continue to monitor. 3. Anemia. Monitor hemoglobin and hematocrit levels. 4. Mineral bone disorder. Monitor calcium and phosphorus levels. 5. Acute hypoxemic, hypercarbic respiratory failure. The patient's ABG was reviewed, shows a pCO2 o f 90. Continue nonrebreather. Consider BiPAP. Continue nebulizers. Monitor closely. 6. Respiratory acidemia. The patient's ABG shows pH 7.1 with a pCO2 of 90 with partial metabolic co mpensation. At this point, continue to monitor. Consider BiPAP. Defer to pulmonary. 7. Volume overload secondary to diastolic heart failure. Continue diuretic therapy. Consider inten sifying diuretics. 8. Sepsis, status post shock. The patient is completing antibiotic course. 9. Status post cardiac arrest. 10. Encephalopathy. 11. Status post pneumothorax. Dictated By: JOE CHU/DUKE Conf#: [id number] DID#: [id number] CC: WENDY LOVE MD;*EndCC*
--- NOTE | 2018-09-07 11:40 | PN ---
Date/Time of Note Date/Time of Note DATE: 09/07/18 TIME: 11:40 Assessment/Plan VTE Prophylaxis Risk score (from Ns)>0 risk: 8 SCD applied (from Ns): No Lines/Catheters IV Catheter Type (from [facility]): IJ Central line Urinary Cath still in place: Yes Assessment/Plan Assessment/Plan -Sepsis with shock, resolving. Dr. Sutton is following in infection disease consultation. -Status post cardiac arrest. Dr. Hernández is following in cardiology consultation. -Left-sided pneumothorax, status post left side chest tube placement, s/p self d/c CT. -Acute respiratory failure, continue ventilatory support bronchodilators. Dr. Molina is following in pulmonology consultation. -Pneumoperitoneum most likely due to cardiac arrest. Dr. Rivas is following in general surgery consultation. -Left axillary and brachial DVT, continue Lovenox -Left lower lobe pneumonia -Severe emphysema -JEREMÍAS with possible chronic kidney disease. Dr Arvizu is following in nephrology consultation. -Schizoaffective disorder depressed type. Psychiatric consult is appreciated, continue Risperdal Depakote Further recommendations based on clinical course. Plan of care discussed with Dr. Juarez. Total critical care time spent 35 mins Result Diagram: 09/07/18 0531 09/07/18 0531 Results 24hrs Laboratory Tests Test 09/07/18 05:31 09/07/18 09:54 White Blood Count 7.2 # Red Blood Count 3.91 L Hemoglobin 10.7 L Hematocrit 35.2 L Mean Corpuscular Volume 90.0 Mean Corpuscular Hemoglobin 27.4 L Mean Corpuscular Hemoglobin Concent 30.4 L Red Cell Distribution Width 16.0 H Platelet Count 102 #L Mean Platelet Volume 11.3 H Immature Granulocytes % 0.400 Neutrophils % 75.1 Lymphocytes % 15.4 Monocytes % 6.2 Eosinophils % 2.9 Basophils % 0.0 Nucleated Red Blood Cells % 0.0 Immature Granulocytes # 0.030 Neutrophils # 5.4 Lymphocytes # 1.1 Monocytes # 0.5 Eosinophils # 0.2 Basophils # 0.0 Nucleated Red Blood Cells # 0.0 Sodium Level 140 Potassium Level 4.8 Chloride Level 100 Carbon Dioxide Level 38 H Anion Gap 2 L Blood Urea Nitrogen 32 H Creatinine 0.90 Est Glomerular Filtrat Rate mL/min > 60 Glucose Level 75 Calcium Level 9.2 Blood Gas Specimen Source Blood arterial Arterial Blood Date Drawn 09/07/2018 9:53:09 AM Arterial Blood pH (Temp corrected) 7.179 *L Arterial Blood pCO2 (Temp correct) 94.6 *H Arterial Blood pO2 (Temp corrected) 59.5 L Arterial Blood HCO3 34.4 H Arterial Blood Base Excess 3.2 H Arterial Blood Oxygen Saturation 83.7 L Miller Test ACCEPTAB Arterial Blood Gas Puncture Site Right Radial Arterial Blood Carboxyhemoglobin 0.8 Arterial Blood Methemoglobin 0.1 Blood Gas A-a O2 Differential 271.6 H Oxyhemoglobin Percent 82.9 L Blood Gas Temperature 37.0 Blood Gas Modality MASK - SIMPLE FiO2 61.0 Blood Gas Critical Value Read Back Torsten MAGUIRE RN Blood Gas Notified Whom Blood Gas Notified Time 09/07/2018 10:00:43 AM Exam/Review of Systems Exam Vitals Vital Signs Date Temp Pulse Resp B/P (MAP) Pulse Ox O2 O2 Flow FiO2 Time Delivery Rate 09/07/18 6.0 08:06 09/07/18 85 22 96 Nasal 08:00 Cannula 09/07/18 97.9 98/68 (78) 08:00 09/05/18 21 07:41 Intake and Output 09/06/18 09/06/18 09/07/18 1515:00 23:00 07:00 IntakeIntake Total 970 ml 500 ml OutputOutput Total 1200 ml BalanceBalance -230 ml 500 ml Results Results 24hrs Laboratory Tests Test 09/07/18 05:31 09/07/18 09:54 White Blood Count 7.2 # Red Blood Count 3.91 L Hemoglobin 10.7 L Hematocrit 35.2 L Mean Corpuscular Volume 90.0 Mean Corpuscular Hemoglobin 27.4 L Mean Corpuscular Hemoglobin Concent 30.4 L Red Cell Distribution Width 16.0 H Platelet Count 102 #L Mean Platelet Volume 11.3 H Immature Granulocytes % 0.400 Neutrophils % 75.1 Lymphocytes % 15.4 Monocytes % 6.2 Eosinophils % 2.9 Basophils % 0.0 Nucleated Red Blood Cells % 0.0 Immature Granulocytes # 0.030 Neutrophils # 5.4 Lymphocytes # 1.1 Monocytes # 0.5 Eosinophils # 0.2 Basophils # 0.0 Nucleated Red Blood Cells # 0.0 Sodium Level 140 Potassium Level 4.8 Chloride Level 100 Carbon Dioxide Level 38 H Anion Gap 2 L Blood Urea Nitrogen 32 H Creatinine 0.90 Est Glomerular Filtrat Rate mL/min > 60 Glucose Level 75 Calcium Level 9.2 Blood Gas Specimen Source Blood arterial Arterial Blood Date Drawn 09/07/2018 9:53:09 AM Arterial Blood pH (Temp corrected) 7.179 *L Arterial Blood pCO2 (Temp correct) 94.6 *H Arterial Blood pO2 (Temp corrected) 59.5 L Arterial Blood HCO3 34.4 H Arterial Blood Base Excess 3.2 H Arterial Blood Oxygen Saturation 83.7 L Miller Test ACCEPTAB Arterial Blood Gas Puncture Site Right Radial Arterial Blood Carboxyhemoglobin 0.8 Arterial Blood Methemoglobin 0.1 Blood Gas A-a O2 Differential 271.6 H Oxyhemoglobin Percent 82.9 L Blood Gas Temperature 37.0 Blood Gas Modality MASK - SIMPLE FiO2 61.0 Blood Gas Critical Value Read Back Torsten MAGUIRE RN Blood Gas Notified Whom Blood Gas Notified Time 09/07/2018 10:00:43 AM Medications Medication Current Medications Ondansetron HCl (Zofran Inj) 4 mg Q6H PRN IV NAUSEA AND/OR VOMITING Last administered on 09/06/18 18:46; Admin Dose 4 MG; Start 08/26/18 at 23:30 Acetaminophen (Tylenol Supp) 650 mg Q4H PRN [place] PAIN LEVEL 1-3 OR FEVER; Start 08/26/18 at 23:30 Enoxaparin Sodium (Lovenox) 30 mg DAILY SC Last administered on 09/06/18 08:38; Admin Dose 30 MG; Start 08/27/18 at 09:00 Aspirin (Aspirin) 81 mg DAILY PO Last administered on 09/07/18 08:29; Admin Dose 81 MG; Start 08/29/18 at 09:00 Famotidine (Pepcid) 20 mg Q12 PO Last administered on 09/07/18 08:29; Admin Dose 20 MG; Start 08/29/18 at 21:00 Albuterol (Proventil 0.083% (Neb)) 2.5 mg Q6H RESP THERAPY HHN Last administered on 09/07/18 07:59; Admin Dose 2.5 MG; Start 08/29/18 at 21:52 Ipratropium [place] (Atrovent 0.02% (Neb)) 0.5 mg Q6H RESP THERAPY HHN Last administered on 09/07/18 07:59; Admin Dose 0.5 MG; Start 08/29/18 at 21:53 Zolpidem Tartrate (Ambien) 5 mg HS PRN PO INSOMNIA Last administered on 09/04/18 23:03; Admin Dose 5 MG; Start 09/01/18 at 00:00 Amlodipine Besylate (Norvasc) 10 mg DAILY PO Last administered on 09/06/18 08:36; Admin Dose 10 MG; Start 09/01/18 at 15:00 Guaifenesin/ Dextromethorphan (Robitussin Dm Liquid Cup) 5 ml Q6H PRN PO COUGH Last administered on 09/05/18 09:04; Admin Dose 5 ML; Start 09/01/18 at 20:00 Divalproex Sodium (Depakote) 250 mg Q8H PO Last administered on 09/07/18 08:29; Admin Dose 250 MG; Start 09/02/18 at 17:00 Morphine Sulfate (morphine) 6 mg Q4H PRN PO SEVERE PAIN LEVEL 7-10 Last administered on 09/07/18 07:18; Admin Dose 6 MG; Start 09/04/18 at 21:30 Albuterol/ Ipratropium (Duoneb) 3 ml Q3H RESP THERAPY PRN HHN SHORTNESS OF BREATH; Start 09/05/18 at 20:00 Risperidone (Risperdal) 1 mg BID PO Last administered on 09/07/18 08:29; Admin Dose 1 MG; Start 09/06/18 at 21:00 Vancomycin HCl (Vanco Iv Per Pharmacy) VANCOMYCIN PER PHARMACY PER PROTOCOL XX ; Start 09/06/18 at 15:00 Meropenem/Sodium Chloride 50 ml @ 100 mls/hr Q12 IVPB Last administered on 08:29; Admin Dose 100 MLS/HR; Start 09/06/18 at 15:00 Vancomycin/Sodium Chloride 250 ml @ 125 mls/hr Q12H IVPB ; Start 09/07/18 at 18:00 Miscellaneous Information (*Rx Drug Level Order Reminder*) VANCO TROUGH 2/3 @ 0,500 ONCE ONCE XX ; Start 09/08/18 at 05:00; Stop 09/08/18 at 05:01 Methylprednisolone Sodium Succinate (Solu-Medrol) 40 mg Q6 IV ; Start 09/07/18 at 12:00 Propofol 100 ml @ 1.875 mls/ hr Q12H IV Last administered on 09/07/18at 11:00; Admin Dose 1.875 MLS/HR; Start 09/07/18 at 11:00 Fentanyl 100 ml @ 2.5 mls/hr TITRATE IV ; Start 09/07/18 at 11:30 Norepinephrine 250 ml @ 1.875 mls/ hr TITRATE IV Last administered on 09/07/18at 10:45; Admin Dose 18.75 MLS/HR; Start 09/07/18 at 11:00 Alteplase, Recombinant (Cathflo (Activase)) 2 mg MAY REPEAT X1 PRN CATHETER IF CATHETER REMAINS OCCULUDED; Start 09/07/18 at 11:00 KEDAR LUGO Sep 07, 2018 11:40
[2018-09-07] MEDS: FENTAnyl (DRIP) 1000 mcg/100mL 100 ML IV SCH (11:56)
[2018-09-07] MEDS: METHYLPREDNISOLONE 40 MG INJ IV SCH ×3 (12:14→23:52)
--- NOTE | 2018-09-07 13:16 | CONS ---
Assessment/Plan Assessment/Plan Assessment/Plan (Daily) VDRF Sepsis s/p cardiac arrest Pneumothorax Anemia Thrombocytopenia Continue Vent support Continue Levophed Hold Norvasc Continue Salumedrol Continue Antibiotics Contineu ASA and Lovenox Continue Nebs as scheduled Continue GI and DVT Prophylaxis Monitor in ICU Consultation Date/Type/Reason Admit Date/Time Aug 27, 2018 at 00:03 Type of Consult Cardiology Date/Time of Note DATE: 09/07/18 TIME: 13:11 Past Medical History Home Meds Reported Medications Docusate Sodium* (Colace*) 100 Mg Capsule, 100 MG PO Q24H PRN for CONSTIPATION, #30 CAP 08/26/18 Polyethylene Glycol* (Miralax*) 17 Gm Powd.pack, 17 GM PO DAILY PRN for NEEDED, #30 PACKET 08/26/18 Acetaminophen* (Acetaminophen*) 325 Mg Tablet, 650 MG PO Q4H PRN for PAIN 1- 05/15, #30 TAB AND FEVER>101F 08/26/18 Sennosides* (Senna Lax*) 8.6 Mg Tablet, 1 TAB PO NEEDED, TAB 08/26/18 Mv,Minerals/Fa/Lycopene/Ginkgo (ONE DAILY MEN'S 50+ TABLET) 1 Each Tablet, 1 EACH PO DAILY, TAB 08/26/18 Divalproex Sodium* (Depakote*) 125 Mg Tablet.dr, 250 MG PO Q8H, #90 TAB 08/26/18 Quetiapine Fumarate* (Seroquel*) 50 Mg Tablet, 50 MG PO Q8H, TAB 08/26/18 Ipratropium-Albuterol (Ipratropium-Albuterol) 0.5-3 Mg/3 Ml Ampul.neb, 3 ML INHALATION Q4H PRN for WHEEZING AND SOB, #30 VIAL 08/26/18 Budesonide-Formoterol Fumarate* (Symbicort*) 160-4.5 Hfa.aer.ad, 2 PUFF INHALATION BID, #1 EACH 08/26/18 Medications Current Medications Ondansetron HCl (Zofran Inj) 4 mg Q6H PRN IV NAUSEA AND/OR VOMITING Last administered on 09/06/18at 18:46; Admin Dose 4 MG; Start 08/26/18 at 23:30 Acetaminophen (Tylenol Supp) 650 mg Q4H PRN NC PAIN LEVEL 1-3 OR FEVER; Start 08/26/18 at 23:30 Enoxaparin Sodium (Lovenox) 30 mg DAILY SC Last administered on 09/06/18 08:38; Admin Dose 30 MG; Start 08/27/18 at 09:00 Aspirin (Aspirin) 81 mg DAILY PO Last administered on 09/07/18 08:29; Admin Dose 81 MG; Start 08/29/18 at 09:00 Famotidine (Pepcid) 20 mg Q12 PO Last administered on 09/07/18 08:29; Admin Dose 20 MG; Start 08/29/18 at 21:00 Albuterol (Proventil 0.083% (Neb)) 2.5 mg Q6H RESP THERAPY HHN Last administered on 09/07/18 07:59; Admin Dose 2.5 MG; Start 08/29/18 at 21:52 Ipratropium [place] (Atrovent 0.02% (Neb)) 0.5 mg Q6H RESP THERAPY HHN Last administered on 09/07/18 07:59; Admin Dose 0.5 MG; Start 08/29/18 at 21:53 Zolpidem Tartrate (Ambien) 5 mg HS PRN PO INSOMNIA Last administered on 09/04/18 23:03; Admin Dose 5 MG; Start 09/01/18 at 00:00 Amlodipine Besylate (Norvasc) 10 mg DAILY PO Last administered on 09/06/18 08:3 6; Admin Dose 10 MG; Start 09/01/18 at 15:00 Guaifenesin/ Dextromethorphan (Robitussin Dm Liquid Cup) 5 ml Q6H PRN PO COUGH Last administered on 09/05/18 09:04; Admin Dose 5 ML; Start 09/01/18 at 20:00 Divalproex Sodium (Depakote) 250 mg Q8H PO Last administered on 09/07/18 08:29; Admin Dose 250 MG; Start 09/02/18 at 17:00 Morphine Sulfate (morphine) 6 mg Q4H PRN PO SEVERE PAIN LEVEL 7-10 Last administered on 09/07/18 07:18; Admin Dose 6 MG; Start 09/04/18 at 21:30 Albuterol/ Ipratropium (Duoneb) 3 ml Q3H RESP THERAPY PRN HHN SHORTNESS OF BREATH; Start 09/05/18 at 20:00 Risperidone (Risperdal) 1 mg BID PO Last administered on 09/07/18at 08:29; Admin Dose 1 MG; Start 09/06/18 at 21:00 Vancomycin HCl (Vanco Iv Per Pharmacy) VANCOMYCIN PER PHARMACY PER PROTOCOL XX ; Start 09/06/18 at 15:00 Meropenem/Sodium Chloride 50 ml @ 100 mls/hr Q12 IVPB Last administered on 09/07/18at 08:29; Admin Dose 100 MLS/HR; Start 09/06/18 at 15:00 Vancomycin/Sodium Chloride 250 ml @ 125 mls/hr Q12H IVPB ; Start 09/07/18 at 18:00 Miscellaneous Information (*Rx Drug Level Order Reminder*) VANCO TROUGH 09/08 @ 0,500 ONCE ONCE XX ; Start 09/08/18 at 05:00; Stop 09/08/18 at 05:01 Methylprednisolone Sodium Succinate (Solu-Medrol) 40 mg Q6 IV Last administered on 09/07/18at 12:14; Admin Dose 40 MG; Start 09/07/18 at 12:00 Propofol 100 ml @ 1.875 mls/ hr Q12H IV Last administered on 09/07/18at 11:00; Admin Dose 1.875 MLS/HR; Start 09/07/18 at 11:00 Fentanyl 100 ml @ 2.5 mls/hr TITRATE IV Last administered on 09/07/18at 11:56; Admin Dose 2.5 MLS/HR; Start 09/07/18 at 11:30 Norepinephrine 250 ml @ 1.875 mls/ hr TITRATE IV Last administered on 09/07/18at 10:45; Admin Dose 18.75 MLS/HR; Start 09/07/18 at 11:00 Alteplase, Recombinant (Cathflo (Activase)) 2 mg MAY REPEAT X1 PRN CATHETER IF CATHETER REMAINS OCCULUDED; Start 09/07/18 at 11:00 Allergies: Coded Allergies: No Known Allergy (Unverified , 08/26/18) Social History Smoking Status: Unknown if ever smoked Exam/Review of Systems Vital Signs Vitals Vital Signs Date Temp Pulse Resp B/P (MAP) Pulse Ox O2 O2 Flow FiO2 Time Delivery Rate 09/07/18 100 12:00 09/07/18 89 09:45 09/07/18 6.0 08:06 09/07/18 22 96 Nasal 08:00 Cannula 09/07/18 97.9 98/68 (78) 08:00 Intake and Output 09/06/18 09/06/18 09/07/18 1515:00 23:00 07:00 IntakeIntake Total 970 ml 500 ml OutputOutput Total 1200 ml BalanceBalance -230 ml 500 ml Exam Constitutional: non-verbal ENMT: intubated Respiratory: diminished breath sounds Cardiovascular: regular rate and rhythm (no m/r/g) Gastrointestinal: soft, nl liver, spleen Labs Result Diagram: 09/07/1831 09/07/18 0531 Results 24hrs Laboratory Tests Test 09/07/18 05:31 09/07/18 09:54 09/07/18 12:00 White Blood Count 7.2 # Red Blood Count 3.91 L Hemoglobin 10.7 L Hematocrit 35.2 L Mean Corpuscular 90.0 Volume Mean Corpuscular 27.4 L Hemoglobin Mean Corpuscular 30.4 L Hemoglobin Concent Red Cell Distribution 16.0 H Width Platelet Count 102 #L Mean Platelet Volume 11.3 H Immature Granulocytes 0.400 % Neutrophils % 75.1 Lymphocytes % 15.4 Monocytes % 6.2 Eosinophils % 2.9 Basophils % 0.0 Nucleated Red Blood 0.0 Cells % Immature Granulocytes 0.030 # Neutrophils # 5.4 Lymphocytes # 1.1 Monocytes # 0.5 Eosinophils # 0.2 Basophils # 0.0 Nucleated Red Blood 0.0 Cells # Sodium Level 140 Potassium Level 4.8 Chloride Level 100 Carbon Dioxide Level 38 H Anion Gap 2 L Blood Urea Nitrogen 32 H Creatinine 0.90 Est Glomerular Filtrat > 60 Rate mL/min Glucose Level 75 Calcium Level 9.2 Blood Gas Specimen Blood arterial Blood arterial Source Arterial Blood Date 09/07/2018 9:53:09 AM 09/07/2018 12:02:59 PM Drawn Arterial Blood pH 7.179 *L 7.276 *L (Temp corrected) Arterial Blood pCO2 94.6 *H 75.2 H (Temp correct) Arterial Blood pO2 59.5 L 240.0 H (Temp corrected) Arterial Blood HCO3 34.4 H 34.2 H Arterial Blood Base 3.2 H 5.2 H Excess Arterial Blood 83.7 L 99.4 H Oxygen Saturation Miller Test ACCEPTAB ACCEPTAB Arterial Blood Gas Right Radial Right Radial Puncture Site Arterial 0.8 0.7 Blood Carboxyhemoglobi n Arterial Blood 0.1 0.1 Methemoglobin Blood Gas A-a O2 271.6 H 397.8 H Differential Oxyhemoglobin Percent 82.9 L 98.6 Blood Gas Temperature 37.0 37.0 Blood Gas Modality MASK - SIMPLE VENT - AC FiO2 61.0 100.0 Blood Gas Critical Torsten SRINIVASAN RN Value Read Back Blood Gas Notified SM SM Whom Blood Gas Notified 09/07/2018 10:00:43 AM 09/07/2018 12:25:59 PM Time Blood Gas Respiration 16.0 Rate Blood Gas Actual 16 Respiration Rate Blood Gas Tidal Volume 450.0 Blood Gas Low PEEP 5.0 Setting Medications Medications Current Medications Ondansetron HCl (Zofran Inj) 4 mg Q6H PRN IV NAUSEA AND/OR VOMITING Last administered on 09/06/18 18:46; Admin Dose 4 MG; Start 08/26/18 at 23:30 Acetaminophen (Tylenol Supp) 650 mg Q4H PRN NC PAIN LEVEL 1-3 OR FEVER; Start 08/26/18 at 23:30 Enoxaparin Sodium (Lovenox) 30 mg DAILY SC Last administered on 09/06/18 08:38; Admin Dose 30 MG; Start 08/27/18 at 09:00 Aspirin (Aspirin) 81 mg DAILY PO Last administered on 09/07/18 08:29; Admin Dose 81 MG; Start 08/29/18 at 09:00 Famotidine (Pepcid) 20 mg Q12 PO Last administered on 09/07/18 08:29; Admin Dose 20 MG; Start 08/29/18 at 21:00 Albuterol (Proventil 0.083% (Neb)) 2.5 mg Q6H RESP THERAPY HHN Last administered on 09/07/18 07:59; Admin Dose 2.5 MG; Start 08/29/18 at 21:52 Ipratropium [place] (Atrovent 0.02% (Neb)) 0.5 mg Q6H RESP THERAPY HHN Last administered on 09/07/18 07:59; Admin Dose 0.5 MG; Start 08/29/18 at 21:53 Zolpidem Tartrate (Ambien) 5 mg HS PRN PO INSOMNIA Last administered on 09/04/18 23:03; Admin Dose 5 MG; Start 09/01/18 at 00:00 Amlodipine Besylate (Norvasc) 10 mg DAILY PO Last administered on 09/06/18 08:36; Admin Dose 10 MG; Start 09/01/18 at 15:00 Guaifenesin/ Dextromethorphan (Robitussin Dm Liquid Cup) 5 ml Q6H PRN PO COUGH Last administered on 09/05/18 09:04; Admin Dose 5 ML; Start 09/01/18 at 20:00 Divalproex Sodium (Depakote) 250 mg Q8H PO Last administered on 09/07/18 08:29; Admin Dose 250 MG; Start 09/02/18 at 17:00 Morphine Sulfate (morphine) 6 mg Q4H PRN PO SEVERE PAIN LEVEL 7-10 Last administered on 09/07/18 07:18; Admin Dose 6 MG; Start 09/04/18 at 21:30 Albuterol/ Ipratropium (Duoneb) 3 ml Q3H RESP THERAPY PRN HHN SHORTNESS OF BREATH; Start 09/05/18 at 20:00 Risperidone (Risperdal) 1 mg BID PO Last administered on 09/07/18 08:29; Admin Dose 1 MG; Start 09/06/18 at 21:00 Vancomycin HCl (Vanco Iv Per Pharmacy) VANCOMYCIN PER PHARMACY PER PROTOCOL XX ; Start 09/06/18 at 15:00 Meropenem/Sodium Chloride 50 ml @ 100 mls/hr Q12 IVPB Last administered on 09/07/18 08:29; Admin Dose 100 MLS/HR; Start 09/06/18 at 15:00 Vancomycin/Sodium Chloride 250 ml @ 125 mls/hr Q12H IVPB ; Start 09/07/18 at 18:00 Miscellaneous Information (*Rx Drug Level Order Reminder*) VANCO TROUGH 23 @ 0,500 ONCE ONCE XX ; Start 09/08/18 at 05:00; Stop 09/08/18 at 05:01 Methylprednisolone Sodium Succinate (Solu-Medrol) 40 mg Q6 IV Last administered on 09/07/18 12:14; Admin Dose 40 MG; Start 09/07/18 at 12:00 Propofol 100 ml @ 1.875 mls/ hr Q12H IV Last administered on 09/07/18at 11:00; Admin Dose 1.875 MLS/HR; Start 09/07/18 at 11:00 Fentanyl 100 ml @ 2.5 mls/hr TITRATE IV Last administered on 09/07/18at 11:56; Admin Dose 2.5 MLS/HR; Start 09/07/18 at 11:30 Norepinephrine 250 ml @ 1.875 mls/ hr TITRATE IV Last administered on 09/07/18at 10:45; Admin Dose 18.75 MLS/HR; Start 09/07/18 at 11:00 Alteplase, Recombinant (Cathflo (Activase)) 2 mg MAY REPEAT X1 PRN CATHETER IF CATHETER REMAINS OCCULUDED; Start 09/07/18 at 11:00 NIMESH YA M.D. Sep 07, 2018 13:16
[2018-09-07] MEDS: VANCOMYCIN 750 MG (PMX) 250 ML IVPB SCH (17:32)
[2018-09-08] VITALS (104 sets, daily range): BP systolic 84–159; BP diastolic 56–83; PULSE 46–93; RESP 18–21
[2018-09-08] MEDS: IPRATROPIUM (NEB) 0.5 MG/2.5 ML AMP HHN SCH (02:00)
[2018-09-08] MEDS: ALBUTEROL 0.083% (NEB) 2.5 MG/3 ML AMP HHN SCH (02:00)
[2018-09-08] MEDS: DIVALPROEX (EC) 250 MG TAB PO SCH ×3 (02:06→17:17)
[2018-09-08] MEDS: NORepinephrine 8MG/250 ML (PMX 250 ML IV SCH (02:08)
[2018-09-08] MEDS: FENTAnyl (DRIP) 1000 mcg/100mL 100 ML IV SCH ×2 (04:01→15:50)
[2018-09-08] MEDS: VANCOMYCIN 750 MG (PMX) 250 ML IVPB SCH (06:12)
[2018-09-08] MEDS: PROPOFOL 100 ML IV SCH ×2 (06:13→15:46)
[2018-09-08] MEDS: METHYLPREDNISOLONE 40 MG INJ IV SCH ×4 (06:13→23:04)
--- NOTE | 2018-09-08 08:29 | CONS ---
Assessment/Plan Assessment/Plan Assessment/Plan (Daily) Ventilator setting; AC of 20, tidal volume 500, PEEP of 5, 35% FiO2. Patient is currently on propofol 10 mics per kilogram per minute, fentanyl 100 mics per hour, Levophed 6 mics per minute. Assessment recommendations; 1. Patient initially admitted with cardiac arrest status post CPR then self ex tubated and was transferred to medical floor with stable clinical status with acute decompensation yesterday morning with severe hypercapnia requiring intubation. 2. History of recent pneumoperitoneum of unknown etiology with spontaneous resolution, patient did not require any intervention. 3. Status post placement of left chest tube with interval self removal by the patient. 4. Underlying severe bullous emphysema. 5. History of hypertension. 6. History of stable seizure disorder. Continue current supportive care. Perform an ABG. Consider stopping antibiotics. Further recommendations once ABG is performed. Tube feeding to be started. Prognosis is guarded. 35 minutes of critical care time was spent evaluating the patient. Consultation Date/Type/Reason Admit Date/Time Aug 27, 2018 at 00:03 Initial Consult Date 08/27/18 Type of Consult Pulmonary/critical care Patient is a 68-year-old male who is a assisted resident was sent over to the hospital because of hypothermia and altered mental status. In the emergency room, patient developed cardiac arrest requiring CPR and intubation. In the course of workup the patient also required a chest tube placement on the left side. CT imaging of the abdomen showed pneumoperitoneum with possibly perforated viscus. By the time I saw the patient in ICU, patient is orally intubated and sedated. History was obtained from medical records. Past medical history; essentially unremarkable except for possibly COPD. Medications; reviewed. Patient is currently on dopamine at 6 mics per kilogram per minute, Levophed 20 mics per minute, propofol 25 mics per kilogram per minute. Other medications were also reviewed. Allergies; none. Social history; not available. Family history and occupational history is also not available. Review of system; unable to be obtained. General exam; elderly male, orally intubated, sedated, currently in no distress. Requesting Provider: VIVIANA NOLAN MD Date/Time of Note DATE: 09/08/18 TIME: 08:26 24 HR Interval Summary Free Text/Dictation Patient's condition remains critical. Had to be intubated yesterday for severe hypercapnic respiratory failure. General exam; elderly male, appears cachectic, orally intubated, sedated, currently in no distress. Exam/Review of Systems Exam Vitals Vital Signs Date Temp Pulse Resp B/P (MAP) Pulse Ox O2 O2 Flow FiO2 Time Delivery Rate 09/08/18 70 20 94/64 (74) 97 06:45 09/08/18 Mechanical 06:00 Ventilator 09/08/18 35 05:15 09/08/18 98.2 04:00 09/07/18 6.0 08:06 Intake and Output 09/07/18 09/07/18 09/08/18 1515:00 23:00 07:00 IntakeIntake Total 573.125 ml 632.625 ml 663.875 ml OutputOutput Total 2625 ml 1205 ml 425 ml BalanceBalance -2051.875 ml -572.375 ml 238.875 ml Exam H EENT exam; supple neck, no JVD. No lymphadenopathy. Midline trachea. No thyromegaly. Orally intubated. Patient is edentulous. No neck masses. Chest exam; diminished breath sounds throughout. S1-S2 audible, no murmurs. Regular rhythm. Abdomen exam; soft, no organomegaly. Scaphoid. Bowel sounds audible. Extremity exam; no peripheral edema or clubbing. LAMINATOR exam; patient is sedated. Results Result Diagram: 09/08/18 0430 09/08/18 0430 Results 24hrs Laboratory Tests Test 09/07/18 09:54 09/07/18 12:00 09/08/18 04:30 Blood Gas Specimen Blood arterial Blood arterial Source Arterial Blood Date 09/07/2018 9:53:09 AM 09/07/2018 12:02:59 PM Drawn Arterial Blood pH 7.179 *L 7.276 *L (Temp corrected) Arterial Blood pCO2 94.6 *H 75.2 H (Temp correct) Arterial Blood pO2 59.5 L 240.0 H (Temp corrected) Arterial Blood HCO3 34.4 H 34.2 H Arterial Blood Base 3.2 H 5.2 H Excess Arterial Blood 83.7 L 99.4 H Oxygen Saturation Miller Test ACCEPTAB ACCEPTAB Arterial Blood Gas Right Radial Right Radial Puncture Site Arterial 0.8 0.7 Blood Carboxyhemoglobi n Arterial Blood 0.1 0.1 Methemoglobin Blood Gas A-a O2 271.6 H 397.8 H Differential Oxyhemoglobin Percent 82.9 L 98.6 Blood Gas Temperature 37.0 37.0 Blood Gas Modality MASK - SIMPLE VENT - AC FiO2 61.0 100.0 Blood Gas Critical Torsten SRINIVASAN RN Value Read Back Blood Gas Notified SM Whom Blood Gas Notified 09/07/2018 10:00:43 AM 09/07/2018 12:25:59 PM Time Blood Gas Respiration 16.0 Rate Blood Gas Actual 16 Respiration Rate Blood Gas Tidal Volume 450.0 Blood Gas Low PEEP 5.0 Setting White Blood Count 5.3 # Red Blood Count 3.59 L Hemoglobin 10.0 L Hematocrit 32.3 L Mean Corpuscular 90.0 Volume Mean Corpuscular 27.9 L Hemoglobin Mean Corpuscular 31.0 L Hemoglobin Concent Red Cell Distribution 15.9 H Width Platelet Count 131 #L Mean Platelet Volume 11.3 H Immature Granulocytes 0.600 H % Neutrophils % 88.9 H Lymphocytes % 9.2 L Monocytes % 1.3 Eosinophils % 0.0 Basophils % 0.0 Nucleated Red Blood 0.0 Cells % Immature Granulocytes 0.030 # Neutrophils # 4.8 Lymphocytes # 0.5 L Monocytes # 0.1 L Eosinophils # 0.0 Basophils # 0.0 Nucleated Red Blood 0.0 Cells # Sodium Level 142 Potassium Level 5.0 Chloride Level 103 Carbon Dioxide Level 34 H Anion Gap 5 Blood Urea Nitrogen 30 H Creatinine 0.97 Est Glomerular Filtrat > 60 Rate mL/min Glucose Level 173 Calcium Level 8.9 Phosphorus Level 2.6 Magnesium Level 2.4 Vancomycin Level 17.6 Trough Medications Medication Current Medications Ondansetron HCl (Zofran Inj) 4 mg Q6H PRN IV NAUSEA AND/OR VOMITING Last administered on 09/06/18at 18:46; Admin Dose 4 MG; Start 08/26/18 at 23:30 Acetaminophen (Tylenol Supp) 650 mg Q4H PRN [place] PAIN LEVEL 1-3 OR FEVER; Start 08/26/18 at 23:30 Enoxaparin Sodium (Lovenox) 30 mg DAILY SC Last administered on 09/06/18at 08:38; Admin Dose 30 MG; Start 08/27/18 at 09:00 Aspirin (Aspirin) 81 mg DAILY PO Last administered on 09/07/18at 08:29; Admin Dose 81 MG; Start 08/29/18 at 09:00 Famotidine (Pepcid) 20 mg Q12 PO Last administered on 09/07/18 20:56; Admin Dose 20 MG; Start 08/29/18 at 21:00 Albuterol (Proventil 0.083% (Neb)) 2.5 mg Q6H RESP THERAPY HHN Last administered on 09/08/18 02:00; Admin Dose 2.5 MG; Start 08/29/18 at 21:52 Ipratropium [place] (Atrovent 0.02% (Neb)) 0.5 mg Q6H RESP THERAPY HHN Last administered on 09/08/18 02:00; Admin Dose 0.5 MG; Start 08/29/18 at 21:53 Zolpidem Tartrate (Ambien) 5 mg HS PRN PO INSOMNIA Last administered on 09/04/18 23:03; Admin Dose 5 MG; Start 09/01/18 at 00:00 Amlodipine Besylate (Norvasc) 10 mg DAILY PO Last administered on 09/06/18 08:36; Admin Dose 10 MG; Start 09/01/18 at 15:00 Guaifenesin/ Dextromethorphan (Robitussin Dm Liquid Cup) 5 ml Q6H PRN PO COUGH Last administered on 09/05/18 09:04; Admin Dose 5 ML; Start 09/01/18 at 20:00 Divalproex Sodium (Depakote) 250 mg Q8H PO Last administered on 09/08/18 02:06; Admin Dose 250 MG; Start 09/02/18 at 17:00 Morphine Sulfate (morphine) 6 mg Q4H PRN PO SEVERE PAIN LEVEL 7-10 Last administered on 09/07/18 07:18; Admin Dose 6 MG; Start 09/04/18 at 21:30 Albuterol/ Ipratropium (Duoneb) 3 ml Q3H RESP THERAPY PRN HHN SHORTNESS OF BREATH; Start 09/05/18 at 20:00 Risperidone (Risperdal) 1 mg BID PO Last administered on 09/07/18 20:57; Admin Dose 1 MG; Start 09/06/18 at 21:00 Vancomycin HCl (Vanco Iv Per Pharmacy) VANCOMYCIN PER PHARMACY PER PROTOCOL XX ; Start 09/06/18 at 15:00 Meropenem/Sodium Chloride 50 ml @ 100 mls/hr Q12 IVPB Last administered on 09/07/18at 20:57; Admin Dose 100 MLS/HR; Start 09/06/18 at 15:00 Methylprednisolone Sodium Succinate (Solu-Medrol) 40 mg Q6 IV Last administered on 09/08/18at 06:13; Admin Dose 40 MG; Start 09/07/18 at 12:00 Propofol 100 ml @ 1.875 mls/ hr Q12H IV Last administered on 09/08/18at 06:13; Admin Dose 3.75 MLS/HR; Start 09/07/18 at 11:00 Fentanyl 100 ml @ 2.5 mls/hr TITRATE IV Last administered on 09/08/18at 04:01; Admin Dose 10 MLS/HR; Start 09/07/18 at 11:30 Norepinephrine 250 ml @ 1.875 mls/ hr TITRATE IV Last administered on 09/08/18at 02:08; Admin Dose 11.25 MLS/HR; Start 09/07/18 at 11:00 Alteplase, Recombinant (Cathflo (Activase)) 2 mg MAY REPEAT X1 PRN CATHETER IF CATHETER REMAINS OCCULUDED; Start 09/07/18 at 11:00 Vancomycin HCl 1.5 gm/Sodium Chloride 250 ml @ 83.333 mls/ hr Q24H IVPB ; Start 09/08/18 at 21:00 GAMALIEL BASILIO Sep 08, 2018 08:29
[2018-09-08] MEDS: MEROPENEM 1 GM/50ML(PMX) 50 ML IVPB SCH ×2 (08:54→21:34)
[2018-09-08] MEDS: ENOXAPARIN 30 MG/0.3 ML SYG SC SCH (08:57)
[2018-09-08] MEDS: AMLODIPINE 10 MG TAB PO SCH (09:00)
[2018-09-08] MEDS: RISPERIDONE 1 MG TAB PO SCH ×2 (09:44→23:02)
[2018-09-08] MEDS: FAMOTIDINE 20 MG TAB PO SCH ×2 (09:44→21:34)
[2018-09-08] MEDS: ASPIRIN 81 MG TAB PO SCH (09:44)
[2018-09-08] MEDS: BALSAM PERU/CASTOR OIL 60 GM TUBE TOP SCH (09:45)
--- NOTE | 2018-09-08 12:00 | CONS ---
Assessment/Plan Assessment/Plan Assessment/Plan (Daily) VDRF Sepsis s/p cardiac arrest Pneumothorax Anemia Thrombocytopenia Continue Vent support Continue Levophed Hold Norvasc Continue Salumedrol Continue Antibiotics Continue ASA and Lovenox Continue Nebs as scheduled Continue GI and DVT Prophylaxis Monitor in ICU Consultation Date/Type/Reason Admit Date/Time Aug 27, 2018 at 00:03 Initial Consult Date 08/27/18 Type of Consult Cardiology Requesting Provider: VIVIANA NOLAN MD Date/Time of Note DATE: 09/08/18 TIME: 11:59 Exam/Review of Systems Vital Signs Vitals Vital Signs Date Temp Pulse Resp B/P (MAP) Pulse Ox O2 O2 Flow FiO2 Time Delivery Rate 09/08/18 68 20 97/63 (74) 97 Mechanical 10:00 Ventilator 09/08/18 99.2 08:00 09/08/18 35 08:00 09/07/18 6.0 08:06 Intake and Output 09/07/18 09/07/18 09/08/18 1414:59 22:59 06:59 IntakeIntake Total 559.375 ml 595.125 ml 715.125 ml OutputOutput Total 2625 ml 1095 ml 535 ml BalanceBalance -2065.625 ml -499.875 ml 180.125 ml Labs Result Diagram: 09/08/18 0430 09/08/18 0430 Results 24hrs Laboratory Tests Test 09/07/18 12:00 09/08/18 04:30 09/08/18 08:25 Blood Gas Specimen Blood arterial Blood arterial Source Arterial Blood Date 09/07/2018 12:02:59 PM 09/08/2018 9:50:45 AM Drawn Arterial Blood pH 7.276 *L 7.495 H (Temp corrected) Arterial Blood pCO2 75.2 H 42.5 (Temp correct) Arterial Blood pO2 240.0 H 62.1 L (Temp corrected) Arterial Blood HCO3 34.2 H 32.0 H Arterial Blood Base 5.2 H 7.9 H Excess Arterial Blood 99.4 H Oxygen Saturation Miller Test ACCEPTAB ACCEPTAB Arterial Blood Gas Right Radial Right Radial Puncture Site Arterial 0.7 0.9 Blood Carboxyhemoglobin Arterial Blood 0.1 0.3 Methemoglobin Blood Gas A-a O2 397.8 H 138.0 H Differential Oxyhemoglobin Percent 98.6 90.8 L Blood Gas Temperature 37.0 37.0 Blood Gas Respiration 16.0 20.0 Rate Blood Gas Actual 16 20 Respiration Rate Blood Gas Modality VENT - AC VENT - AC FiO2 100.0 35.0 Blood Gas Tidal Volume 450.0 500.0 Blood Gas Low PEEP 5.0 5.0 Setting Blood Gas Critical Bhavya SRINIVASAN RN Value Read Back Blood Gas Notified Whom MICHAEL TODD Blood Gas Notified 09/07/2018 12:25:59 PM 09/08/2018 9:55:51 AM Time White Blood Count 5.3 # Red Blood Count 3.59 L Hemoglobin 10.0 L Hematocrit 32.3 L Mean Corpuscular Volume 90.0 Mean Corpuscular 27.9 L Hemoglobin Mean Corpuscular 31.0 L Hemoglobin Concent Red Cell Distribution 15.9 H Width Platelet Count 131 #L Mean Platelet Volume 11.3 H Immature Granulocytes % 0.600 H Neutrophils % 88.9 H Lymphocytes % 9.2 L Monocytes % 1.3 Eosinophils % 0.0 Basophils % 0.0 Nucleated Red Blood 0.0 Cells % Immature Granulocytes # 0.030 Neutrophils # 4.8 Lymphocytes # 0.5 L Monocytes # 0.1 L Eosinophils # 0.0 Basophils # 0.0 Nucleated Red Blood 0.0 Cells # Sodium Level 142 Potassium Level 5.0 Chloride Level 103 Carbon Dioxide Level 34 H Anion Gap 5 Blood Urea Nitrogen 30 H Creatinine 0.97 Est Glomerular Filtrat > 60 Rate mL/min Glucose Level 173 Calcium Level 8.9 Phosphorus Level 2.6 Magnesium Level 2.4 Vancomycin Level Trough 17.6 Medications Medications Current Medications Ondansetron HCl (Zofran Inj) 4 mg Q6H PRN IV NAUSEA AND/OR VOMITING Last administered on 09/06/18at 18:46; Admin Dose 4 MG; Start 08/26/18 at 23:30 Acetaminophen (Tylenol Supp) 650 mg Q4H PRN [place] PAIN LEVEL 1-3 OR FEVER; Start 08/26/18 at 23:30 Enoxaparin Sodium (Lovenox) 30 mg DAILY SC Last administered on 09/08/18at 08:57; Admin Dose 30 MG; Start 08/27/18 at 09:00 Aspirin (Aspirin) 81 mg DAILY PO Last administered on 09/08/18at 09:44; Admin Dose 81 MG; Start 08/29/18 at 09:00 Famotidine (Pepcid) 20 mg Q12 PO Last administered on 09/08/18 09:44; Admin Dose 20 MG; Start 08/29/18 at 21:00 Zolpidem Tartrate (Ambien) 5 mg HS PRN PO INSOMNIA Last administered on 09/04/18 23:03; Admin Dose 5 MG; Start 09/01/18 at 00:00 Amlodipine Besylate (Norvasc) 10 mg DAILY PO Last administered on 09/06/18 08:36; Admin Dose 10 MG; Start 09/01/18 at 15:00 Guaifenesin/ Dextromethorphan (Robitussin Dm Liquid Cup) 5 ml Q6H PRN PO COUGH Last administered on 09/05/18 09:04; Admin Dose 5 ML; Start 09/01/18 at 20:00 Divalproex Sodium (Depakote) 250 mg Q8H PO Last administered on 09/08/18 09:44; Admin Dose 250 MG; Start 09/02/18 at 17:00 Morphine Sulfate (morphine) 6 mg Q4H PRN PO SEVERE PAIN LEVEL 7-10 Last administered on 09/07/18 07:18; Admin Dose 6 MG; Start 09/04/18 at 21:30 Albuterol/ Ipratropium (Duoneb) 3 ml Q3H RESP THERAPY PRN HHN SHORTNESS OF BREATH; Start 09/05/18 at 20:00 Risperidone (Risperdal) 1 mg BID PO Last administered on 09/08/18 09:44; Admin Dose 1 MG; Start 09/06/18 at 21:00 Vancomycin HCl (Vanco Iv Per Pharmacy) VANCOMYCIN PER PHARMACY PER PROTOCOL XX ; Start 09/06/18 at 15:00 Meropenem/Sodium Chloride 50 ml @ 100 mls/hr Q12 IVPB Last administered on 09/08/18 08:54; Admin Dose 100 MLS/HR; Start 09/06/18 at 15:00 Methylprednisolone Sodium Succinate (Solu-Medrol) 40 mg Q6 IV Last administered on 09/08/18 06:13; Admin Dose 40 MG; Start 09/07/18 at 12:00 Propofol 100 ml @ 1.875 mls/ hr Q12H IV Last administered on 09/08/18 06:13; Admin Dose 3.75 MLS/HR; Start 09/07/18 at 11:00 Fentanyl 100 ml @ 2.5 mls/hr TITRATE IV Last administered on 09/08/18at 04:01; Admin Dose 10 MLS/HR; Start 09/07/18 at 11:30 Norepinephrine 250 ml @ 1.875 mls/ hr TITRATE IV Last administered on 09/08/18at 02:08; Admin Dose 11.25 MLS/HR; Start 09/07/18 at 11:00 Alteplase, Recombinant (Cathflo (Activase)) 2 mg MAY REPEAT X1 PRN CATHETER IF CATHETER REMAINS OCCULUDED; Start 09/07/18 at 11:00 Vancomycin HCl 1.5 gm/Sodium Chloride 250 ml @ 83.333 mls/ hr Q24H IVPB ; Start 09/09/18 at 00:00 Albuterol (Ventolin Hfa) 4 puff Q6H RESP THERAPY INH ; Start 09/08/18 at 14:00 Ipratropium [place] (Atrovent Hfa) 4 puff Q6H RESP THERAPY INH ; Start 09/08/18 at 14:00 Albumin Human 100 ml @ 100 mls/hr Q6 IV ; Start 09/08/18 at 12:00; Stop 09/09/18 at 06:59 NIMESH YA M.D. Sep 08, 2018 12:00
[2018-09-08] MEDS: ALBUMIN HUMAN 25% 100 ML IV SCH ×3 (12:07→23:02)
--- NOTE | 2018-09-08 12:36 | PN ---
Date/Time of Note Date/Time of Note DATE: 09/08/18 TIME: 12:35 Assessment/Plan VTE Prophylaxis Risk score (from Ns)>0 risk: 14 SCD applied (from Ns): Yes Lines/Catheters IV C[facility]ter Type (from [facility] Central Line Urinary Cath still in place: Yes Assessment/Plan Assessment/Plan -Sepsis with shock, resolving. Dr. Sutton is following in infection disease consultation. -Status post cardiac arrest. Dr. Hernández is following in cardiology consultation. -Left-sided pneumothorax, status post left side chest tube placement, s/p self d/c CT. -Acute respiratory failure, continue ventilatory support bronchodilators. Dr. Molina is following in pulmonology consultation. -Pneumoperitoneum most likely due to cardiac arrest. Dr. Rivas is following in general surgery consultation. -Left axillary and brachial DVT, continue Lovenox -Left lower lobe pneumonia -Severe emphysema -JEREMÍAS with possible chronic kidney disease. Dr Arvizu is following in nephrology consultation. -Schizoaffective disorder depressed type. Psychiatric consult is appreciated, continue Risperdal Depakote Further recommendations based on clinical course. Plan of care discussed with Dr. Juarez. Total critical care time spent 35 mins Result Diagram: 09/08/18 0430 09/08/18 0430 Results 24hrs Laboratory Tests Test 09/08/18 04:30 09/08/18 08:25 White Blood Count 5.3 # Red Blood Count 3.59 L Hemoglobin 10.0 L Hematocrit 32.3 L Mean Corpuscular Volume 90.0 Mean Corpuscular Hemoglobin 27.9 L Mean Corpuscular Hemoglobin Concent 31.0 L Red Cell Distribution Width 15.9 H Platelet Count 131 #L Mean Platelet Volume 11.3 H Immature Granulocytes % 0.600 H Neutrophils % 88.9 H Lymphocytes % 9.2 L Monocytes % 1.3 Eosinophils % 0.0 Basophils % 0.0 Nucleated Red Blood Cells % 0.0 Immature Granulocytes # 0.030 Neutrophils # 4.8 Lymphocytes # 0.5 L Monocytes # 0.1 L Eosinophils # 0.0 Basophils # 0.0 Nucleated Red Blood Cells # 0.0 Sodium Level 142 Potassium Level 5.0 Chloride Level 103 Carbon Dioxide Level 34 H Anion Gap 5 Blood Urea Nitrogen 30 H Creatinine 0.97 Est Glomerular Filtrat Rate mL/min > 60 Glucose Level 173 Calcium Level 8.9 Phosphorus Level 2.6 Magnesium Level 2.4 Vancomycin Level Trough 17.6 Blood Gas Specimen Source Blood arterial Arterial Blood Date Drawn 09/08/2018 9:50:45 AM Arterial Blood pH (Temp corrected) 7.495 H Arterial Blood pCO2 (Temp correct) 42.5 Arterial Blood pO2 (Temp corrected) 62.1 L Arterial Blood HCO3 32.0 H Arterial Blood Base Excess 7.9 H Miller Test ACCEPTAB Arterial Blood Gas Puncture Site Right Radial Arterial Blood Carboxyhemoglobin 0.9 Arterial Blood Methemoglobin 0.3 Blood Gas A-a O2 Differential 138.0 H Oxyhemoglobin Percent 90.8 L Blood Gas Temperature 37.0 Blood Gas Respiration Rate 20.0 Blood Gas Actual Respiration Rate 20 Blood Gas Modality VENT - AC FiO2 35.0 Blood Gas Tidal Volume 500.0 Blood Gas Low PEEP Setting 5.0 Blood Gas Notified Whom MDA Blood Gas Notified Time 09/08/2018 9:55:51 AM Exam/Review of Systems Exam Vitals Vital Signs Date Temp Pulse Resp B/P (MAP) Pulse Ox O2 O2 Flow FiO2 Time Delivery Rate 09/08/18 68 20 97/63 (74) 97 Mechanical 10:00 Ventilator 09/08/18 99.2 08:00 09/08/18 35 08:00 09/07/18 6.0 08:06 Intake and Output 09/07/18 09/07/18 09/08/18 1515:00 23:00 07:00 IntakeIntake Total 573.125 ml 632.625 ml 718.875 ml OutputOutput Total 2625 ml 1205 ml 485 ml BalanceBalance -2051.875 ml -572.375 ml 233.875 ml Results Results 24hrs Laboratory Tests Test 09/08/18 04:30 09/08/18 08:25 White Blood Count 5.3 # Red Blood Count 3.59 L Hemoglobin 10.0 L Hematocrit 32.3 L Mean Corpuscular Volume 90.0 Mean Corpuscular Hemoglobin 27.9 L Mean Corpuscular Hemoglobin Concent 31.0 L Red Cell Distribution Width 15.9 H Platelet Count 131 #L Mean Platelet Volume 11.3 H Immature Granulocytes % 0.600 H Neutrophils % 88.9 H Lymphocytes % 9.2 L Monocytes % 1.3 Eosinophils % 0.0 Basophils % 0.0 Nucleated Red Blood Cells % 0.0 Immature Granulocytes # 0.030 Neutrophils # 4.8 Lymphocytes # 0.5 L Monocytes # 0.1 L Eosinophils # 0.0 Basophils # 0.0 Nucleated Red Blood Cells # 0.0 Sodium Level 142 Potassium Level 5.0 Chloride Level 103 Carbon Dioxide Level 34 H Anion Gap 5 Blood Urea Nitrogen 30 H Creatinine 0.97 Est Glomerular Filtrat Rate mL/min > 60 Glucose Level 173 Calcium Level 8.9 Phosphorus Level 2.6 Magnesium Level 2.4 Vancomycin Level Trough 17.6 Blood Gas Specimen Source Blood arterial Arterial Blood Date Drawn 09/08/2018 9:50:45 AM Arterial Blood pH (Temp corrected) 7.495 H Arterial Blood pCO2 (Temp correct) 42.5 Arterial Blood pO2 (Temp corrected) 62.1 L Arterial Blood HCO3 32.0 H Arterial Blood Base Excess 7.9 H Miller Test ACCEPTAB Arterial Blood Gas Puncture Site Right Radial Arterial Blood Carboxyhemoglobin 0.9 Arterial Blood Methemoglobin 0.3 Blood Gas A-a O2 Differential 138.0 H Oxyhemoglobin Percent 90.8 L Blood Gas Temperature 37.0 Blood Gas Respiration Rate 20.0 Blood Gas Actual Respiration Rate 20 Blood Gas Modality VENT - AC FiO2 35.0 Blood Gas Tidal Volume 500.0 Blood Gas Low PEEP Setting 5.0 Blood Gas Notified Whom MDA Blood Gas Notified Time 09/08/2018 9:55:51 AM Medications Medication Current Medications Ondansetron HCl (Zofran Inj) 4 mg Q6H PRN IV NAUSEA AND/OR VOMITING Last administered on 09/06/18 18:46; Admin Dose 4 MG; Start 08/26/18 at 23:30 Acetaminophen (Tylenol Supp) 650 mg Q4H PRN [place] PAIN LEVEL 1-3 OR FEVER; Start 08/26/18 at 23:30 Enoxaparin Sodium (Lovenox) 30 mg DAILY SC Last administered on 09/08/18 08:57; Admin Dose 30 MG; Start 08/27/18 at 09:00 Aspirin (Aspirin) 81 mg DAILY PO Last administered on 09/08/18 09:44; Admin Dose 81 MG; Start 08/29/18 at 09:00 Famotidine (Pepcid) 20 mg Q12 PO Last administered on 09/08/18 09:44; Admin Dos e 20 MG; Start 08/29/18 at 21:00 Zolpidem Tartrate (Ambien) 5 mg HS PRN PO INSOMNIA Last administered on 09/04/18 23:03; Admin Dose 5 MG; Start 09/01/18 at 00:00 Amlodipine Besylate (Norvasc) 10 mg DAILY PO Last administered on 09/06/18 08:36; Admin Dose 10 MG; Start 09/01/18 at 15:00 Guaifenesin/ Dextromethorphan (Robitussin Dm Liquid Cup) 5 ml Q6H PRN PO COUGH Last administered on 09/05/18 09:04; Admin Dose 5 ML; Start 09/01/18 at 20:00 Divalproex Sodium (Depakote) 250 mg Q8H PO Last administered on 09/08/18 09:44; Admin Dose 250 MG; Start 09/02/18 at 17:00 Morphine Sulfate (morphine) 6 mg Q4H PRN PO SEVERE PAIN LEVEL 7-10 Last administered on 09/07/18 07:18; Admin Dose 6 MG; Start 09/04/18 at 21:30 Albuterol/ Ipratropium (Duoneb) 3 ml Q3H RESP THERAPY PRN HHN SHORTNESS OF BREATH; Start 09/05/18 at 20:00 Risperidone (Risperdal) 1 mg BID PO Last administered on 09/08/18 09:44; Admin Dose 1 MG; Start 09/06/18 at 21:00 Vancomycin HCl (Vanco Iv Per Pharmacy) VANCOMYCIN PER PHARMACY PER PROTOCOL XX ; Start 09/06/18 at 15:00 Meropenem/Sodium Chloride 50 ml @ 100 mls/hr Q12 IVPB Last administered on 09/08/18 08:54; Admin Dose 100 MLS/HR; Start 09/06/18 at 15:00 Methylprednisolone Sodium Succinate (Solu-Medrol) 40 mg Q6 IV Last administered on 09/08/18 12:07; Admin Dose 40 MG; Start 09/07/18 at 12:00 Propofol 100 ml @ 1.875 mls/ hr Q12H IV Last administered on 09/08/18 06:13; Admin Dose 3.75 MLS/HR; Start 09/07/18 at 11:00 Fentanyl 100 ml @ 2.5 mls/hr TITRATE IV Last administered on 2/3/19at 04:01; Admin Dose 10 MLS/HR; Start 09/07/18 at 11:30 Norepinephrine 250 ml @ 1.875 mls/ hr TITRATE IV Last administered on 09/08/18at 02:08; Admin Dose 11.25 MLS/HR; Start 09/07/18 at 11:00 Alteplase, Recombinant (Cathflo (Activase)) 2 mg MAY REPEAT X1 PRN CATHETER IF CATHETER REMAINS OCCULUDED; Start 09/07/18 at 11:00 Vancomycin HCl 1.5 gm/Sodium Chloride 250 ml @ 83.333 mls/ hr Q24H IVPB ; Start 09/09/18 at 00:00 Albuterol (Ventolin Hfa) 4 puff Q6H RESP THERAPY INH ; Start 09/08/18 at 14:00 Ipratropium [place] (Atrovent Hfa) 4 puff Q6H RESP THERAPY INH ; Start 09/08/18 at 14:00 Albumin Human 100 ml @ 100 mls/hr Q6 IV Last administered on 09/08/18at 12:07; Admin Dose 100 MLS/HR; Start 09/08/18 at 12:00; Stop 09/09/18 at 06:59 KEDAR LUGO Sep 08, 2018 12:36
--- NOTE | 2018-09-08 12:52 | PN ---
DATE: 09/08/2018 SUBJECTIVE: The patient remains critically ill, on full ventilatory support, on pressor support. Th e patient's urine output has been marginal. No other events noted. OBJECTIVE: VITAL SIGNS: Blood pressure is 97/63, respirations 20, pulse 68, temperature 98.6. I's and O's revi ewed. HEENT: Head is normocephalic. NECK: Supple. HEART: Regular rate. LUNGS: Show diminished breath sounds at the base. ABDOMEN: Soft, nontender to palpation. No rebound or guarding. EXTREMITIES: Negative for clubbing, cyanosis. Trace edema. DERMATOLOGIC: No rashes. MUSCULOSKELETAL: No joint effusion. NEUROLOGIC: No change in exam. MEDICATIONS: Reviewed. LABORATORY DATA: Shows a white count 5.3, hemoglobin 10.0, platelet count is 131. Sodium 142, potas sium 5.0, BUN 30, creatinine 0.97. The patient's ABG shows pH 7.494, pCO2 of 42, base excess of 7.9. IMAGING: The patient's toxicology was reviewed. Chest x-ray was reviewed, shows right basilar infil trate. Cultures were reviewed. ASSESSMENT AND PLAN: This is a 68-year-old male who presents with: 1. Nonoliguric acute kidney injury with an unknown baseline creatinine. Etiology is secondary to he modynamics. Renal function has improved. Continue current treatment plan. Continue pressor support . Keep MAP above 65. Continue supportive care. Renally dose all medications. Continue antibiotic therapy. The patient will be started on IV albumin for volume expansion. Monitor closely. 2. Hypernatremia, improved. Continue to monitor. Continue free water flushes. 3. Anemia. Monitor hemoglobin and hematocrit levels. 4. Mineral bone disorder. Monitor calcium and phosphorus levels. 5. Metabolic alkalemia. Etiology is secondary to rapid correction of underlying hypercapnia. Would expect bicarbonate levels to improve and alkalemia to resolve in the next 1 to 2 days. Monitor clos cleopatra. 6. Ventilatory dependent respiratory failure. Ventilator settings and arterial blood gases were rev iewed. Continue to monitor. 7. Volume overload secondary to diastolic heart failure. The patient appears euvolemic. At this po int, would hold diuretic therapy. 8. Shock, presumed septic, possible hypovolemic. Continue antibiotic therapy. We will start the pa tient on intravenous albumin for volume expansion. Wean off pressors if possible. 9 Status post cardiac arrest. 10. Encephalopathy. 11. Status post pneumothorax. Please note, I spent over 30 minutes of critical care time with this patient. Dictated By: JOE BLACK DO NR/DUKE Conf#: [id number] DID#: [id number] CC: WENDY LOVE MD;*EndCC*
[2018-09-08] MEDS ORDERED: ALBUTEROL 0.083% (NEB) 2.5 MG/3 ML AMP INH SCH (14:00)
[2018-09-08] MEDS ORDERED: IPRATROPIUM (NEB) 0.5 MG/2.5 ML AMP INH SCH (14:00)
[2018-09-08] MEDS: ALBUTEROL HFA 8 GM INHALER INH SCH ×2 (14:12→20:35)
[2018-09-08] MEDS: IPRATROPIUM (HFA) 12.9 GM INHALER INH SCH ×2 (14:12→20:35)
[2018-09-09] VITALS (43 sets, daily range): BP systolic 86–161; BP diastolic 57–108; PULSE 55–111; RESP 9–23
[2018-09-09] MEDS: PROPOFOL 100 ML IV SCH ×2 (00:48→08:09)
[2018-09-09] MEDS: DIVALPROEX (EC) 250 MG TAB PO SCH ×3 (01:30→17:00)
[2018-09-09] MEDS: IPRATROPIUM (HFA) 12.9 GM INHALER INH SCH ×3 (01:59→13:10)
[2018-09-09] MEDS: ALBUTEROL HFA 8 GM INHALER INH SCH ×3 (01:59→13:10)
[2018-09-09] MEDS: METHYLPREDNISOLONE 40 MG INJ IV SCH ×3 (05:09→18:00)
[2018-09-09] MEDS: ALBUMIN HUMAN 25% 100 ML IV SCH (05:12)
[2018-09-09] MEDS: VANCOMYCIN HCL 1.5 GM in SOD CHLORIDE 0.9% 250 ML IVPB SCH (06:18)
[2018-09-09] MEDS ORDERED: NEUTRA-PHOS 250 MG PACKET PO ONE (08:00)
[2018-09-09] MEDS: ASPIRIN 81 MG TAB PO SCH (08:10)
[2018-09-09] MEDS: RISPERIDONE 1 MG TAB PO SCH ×2 (08:10→20:38)
[2018-09-09] MEDS: FAMOTIDINE 20 MG TAB PO SCH ×2 (08:10→20:38)
[2018-09-09] MEDS: BALSAM PERU/CASTOR OIL 60 GM TUBE TOP SCH (08:11)
--- NOTE | 2018-09-09 08:17 | PN ---
DATE: 09/09/2018 SUBJECTIVE: The patient is stable, critically ill. Currently, off pressor support, on full ventilat ory support. No other events noted. OBJECTIVE: VITAL SIGNS: Blood pressure is 100/61, respirations 20, pulse 60, temperature 98.0. HEENT: Head is normocephalic. NECK: Supple. HEART: Regular rate. LUNGS: Show diminished breath sounds at the base. ABDOMEN: Soft, nontender to palpation without rebound or guarding. EXTREMITIES: Negative for clubbing, cyanosis, positive edema. DERMATOLOGIC: No rashes. MUSCULOSKELETAL: No joint effusions. NEUROLOGIC: No change in exam. MEDICATIONS: Reviewed. LABORATORY DATA: Chest x-ray has been reviewed. The patient has bibasilar infiltrate. Laboratory d supriya has been reviewed. The patient's white count is 2.9, hemoglobin 8.8, platelet count 78, sodium 1 48, BUN 38, creatinine 0.77, phosphorus 2.1, magnesium 2.6. ASSESSMENT AND PLAN: 1. Nonoliguric acute kidney injury with unknown baseline creatinine. Etiology is secondary to hemod ynamics. Renal function is improved. At this point, continue current treatment plans, supportive ca re, renally dose all medicines. 2. Hypernatremia. We will increase free water flushes at 200 mL q.4h. Monitor sodium levels closel y. 3. Anemia. Continue to monitor hemoglobin and hematocrit levels. 4. Mineral bone disorder, monitor calcium and phosphorus levels. 5. Metabolic acidemia, likely secondary to rapid correction of hypercapnia. We will continue to mon itor ABGs. 6. Ventilator-dependent respiratory failure. Vent settings and ABG was reviewed. Continue to monit or. 7. History of diastolic heart failure. Monitor I's and O's closely on diuretic therapy at this time in the setting of hypotension. 8. Shock. Etiology was presumed to be septic, questionable hypovolemic. The patient is status post IV albumin for volume expansion. Currently, off pressor support. Continue antibiotic therapy and m onitor. 9. Status post cardiac arrest. 10. Encephalopathy. 11. Status post pneumothorax. Please note, I spent over 30 minutes of critical care time with this patient. Dictated By: JOE CHU/DUKE Conf#: [id number] DID#: [id number] CC: WEI SHAH NP; VIVIANA NOLAN MD; WENDY LOVE MD;*EndCC*
[2018-09-09] MEDS: ENOXAPARIN 30 MG/0.3 ML SYG SC SCH (09:00)
[2018-09-09] MEDS: AMLODIPINE 10 MG TAB PO SCH (09:00)
[2018-09-09] MEDS: FENTAnyl (DRIP) 1000 mcg/100mL 100 ML IV SCH (09:17)
[2018-09-09] MEDS: MEROPENEM 1 GM/50ML(PMX) 50 ML IVPB SCH ×2 (09:45→20:38)
--- NOTE | 2018-09-09 09:54 | CONS ---
Consult Date/Type/Reason Admit Date/Time Aug 27, 2018 at 00:03 Initial Consult Date 08/27/18 Type of Consult Pulmonary Requesting Provider: VIVIANA NOLAN MD Date/Time of Note DATE: 09/09/18 TIME: 09:51 Subjective Patient remains on mechanical ventilation. Continues mild sedation remains mostly somnolent this morning. Minimal secretions continues to remain hemodynamically stable without vasopressors. According to nursing staff patient has significant agitation off sedation. Objective Vital Signs Date Temp Pulse Resp B/P (MAP) Pulse Ox O2 O2 Flow FiO2 Time Delivery Rate 09/09/18 68 21 110/67 97 08:30 (81) 09/09/18 30 08:00 09/09/18 98.4 Mechanical 08:00 Ventilator 09/07/18 6.0 08:06 Intake and Output 09/08/18 09/08/18 09/09/18 1414:59 22:59 06:59 IntakeIntake Total 800.000 ml 800.375 ml 747.750 ml OutputOutput Total 610 ml 750 ml 1445 ml BalanceBalance 190.000 ml 50.375 ml -697.250 ml Exam GENERAL: Elderly appearing gentleman orally intubated on mechanical ventilation VITAL SIGNS: per chart NECK: Supple. No JVD or lymphadenopathy. CARDIAC EXAM: S1, S2. No added sounds or murmurs. CHEST: Diminished air entry bilaterally with few rales ABDOMEN: Soft, nontender. No guarding or rebound. EXTREMITIES: No cyanosis, clubbing or edema. NEUROLOGIC: Generalized weakness. No focal deficits. Vent Setting Ventilator Support Mode: AC Fraction of Inspired Oxygen pe: 30 Positive End Expiratory Pressu: 5.0 Results/Medications Result Diagram: 09/09/18 0355 09/09/18 0355 Results 24 hrs Chest x-ray shows right lower lobe infiltrate Laboratory Tests Test 09/09/18 03:55 White Blood Count 2.9 #L Red Blood Count 3.16 L Hemoglobin 8.8 L Hematocrit 28.5 L Mean Corpuscular Volume 90.2 Mean Corpuscular Hemoglobin 27.8 L Mean Corpuscular Hemoglobin Concent 30.9 L Red Cell Distribution Width 16.5 H Platelet Count 78 #L Mean Platelet Volume 11.5 H Immature Granulocytes % 0.700 H Neutrophils % 80.0 H Lymphocytes % 16.2 Monocytes % 3.1 Eosinophils % 0.0 Basophils % 0.0 Nucleated Red Blood Cells % 0.0 Immature Granulocytes # 0.020 Neutrophils # 2.3 Lymphocytes # 0.5 L Monocytes # 0.1 L Eosinophils # 0.0 Basophils # 0.0 Nucleated Red Blood Cells # 0.0 Sodium Level 148 H Potassium Level 3.8 Chloride Level 112 H Carbon Dioxide Level 37 H Anion Gap -1 L Blood Urea Nitrogen 38 H Creatinine 0.77 Est Glomerular Filtrat Rate mL/min > 60 Glucose Level 125 # Calcium Level 9.0 Phosphorus Level 2.1 L Magnesium Level 2.6 H Medications Current Medications Ondansetron HCl (Zofran Inj) 4 mg Q6H PRN IV NAUSEA AND/OR VOMITING Last adm inistered on 09/06/18 18:46; Admin Dose 4 MG; Start 08/26/18 at 23:30 Acetaminophen (Tylenol Supp) 650 mg Q4H PRN [place] PAIN LEVEL 1-3 OR FEVER; Start 08/26/18 at 23:30 Enoxaparin Sodium (Lovenox) 30 mg DAILY SC Last administered on 09/08/18 08:57; Admin Dose 30 MG; Start 08/27/18 at 09:00 Aspirin (Aspirin) 81 mg DAILY PO Last administered on 09/09/18 08:10; Admin Dose 81 MG; Start 08/29/18 at 09:00 Famotidine (Pepcid) 20 mg Q12 PO Last administered on 09/09/18 08:10; Admin Dose 20 MG; Start 08/29/18 at 21:00 Zolpidem Tartrate (Ambien) 5 mg HS PRN PO INSOMNIA Last administered on 09/04/18 23:03; Admin Dose 5 MG; Start 09/01/18 at 00:00 Amlodipine Besylate (Norvasc) 10 mg DAILY PO Last administered on 09/06/18 08:36; Admin Dose 10 MG; Start 09/01/18 at 15:00 Guaifenesin/ Dextromethorphan (Robitussin Dm Liquid Cup) 5 ml Q6H PRN PO COUGH Last administered on 09/05/18 09:04; Admin Dose 5 ML; Start 09/01/18 at 20:00 Divalproex Sodium (Depakote) 250 mg Q8H PO Last administered on 09/09/18 09:13; Admin Dose 250 MG; Start 09/02/18 at 17:00 Morphine Sulfate (morphine) 6 mg Q4H PRN PO SEVERE PAIN LEVEL 7-10 Last administered on 09/07/18 07:18; Admin Dose 6 MG; Start 09/04/18 at 21:30 Albuterol/ Ipratropium (Duoneb) 3 ml Q3H RESP THERAPY PRN HHN SHORTNESS OF BREATH; Start 09/05/18 at 20:00 Risperidone (Risperdal) 1 mg BID PO Last administered on 09/09/18 08:10; Admin Dose 1 MG; Start 09/06/18 at 21:00 Vancomycin HCl (Vanco Iv Per Pharmacy) VANCOMYCIN PER PHARMACY PER PROTOCOL XX ; Start 09/06/18 at 15:00 Meropenem/Sodium Chloride 50 ml @ 100 mls/hr Q12 IVPB Last administered on 09/09/18 09:45; Admin Dose 100 MLS/HR; Start 09/06/18 at 15:00 Methylprednisolone Sodium Succinate (Solu-Medrol) 40 mg Q6 IV Last administered on 09/09/18 05:09; Admin Dose 40 MG; Start 09/07/18 at 12:00 Propofol 100 ml @ 1.875 mls/ hr Q12H IV Last administered on 09/09/18 08:09; Admin Dose 15 MLS/HR; Start 09/07/18 at 11:00 Fentanyl 100 ml @ 2.5 mls/hr TITRATE IV Last administered on 09/09/18 09:17; Admin Dose 5 MLS/HR; Start 09/07/18 at 11:30 Norepinephrine 250 ml @ 1.875 mls/ hr TITRATE IV Last administered on 09/08/18 02:08; Admin Dose 11.25 MLS/HR; Start 09/07/18 at 11:00 Alteplase, Recombinant (Cathflo (Activase)) 2 mg MAY REPEAT X1 PRN CATHETER IF CATHETER REMAINS OCCULUDED; Start 09/07/18 at 11:00 Vancomycin HCl 1.5 gm/Sodium Chloride 250 ml @ 83.333 mls/ hr Q24H IVPB Last a dministered on 09/09/18 06:18; Admin Dose 83.333 MLS/HR; Start 09/09/18 at 06:00 Albuterol (Ventolin Hfa) 4 puff Q6H RESP THERAPY INH Last administered on 09/09/18at 07:57; Admin Dose 4 PUFF; Start 09/08/18 at 14:00 Ipratropium [place] (Atrovent Hfa) 4 puff Q6H RESP THERAPY INH Last administered on 09/09/18at 07:57; Admin Dose 4 PUFF; Start 09/08/18 at 14:00 Assessment/Plan Hospital Course (Demo Recall) Assessment 1. Hypoxic respiratory failure on mechanical ventilation, CPAP trial if tolerated 2. Pneumoperitoneum status post chest tube which patient pulled out 3. Encephalopathy toxic metabolic resolving 4. Advanced COPD 5. Hypernatremia likely free water deficit 6. Thrombocytopenia Plan 1. Continue mechanical ventilation, CPAP trial 2. Decrease sedation as tolerated 3. Continue tube feeding 4. Continue free water Discussed CODE STATUS with family. Overall prognosis guarded. critical care time 40 minutes KHUSHI PATTON MD, [facility] Sep 09, 2018 09:54
--- NOTE | 2018-09-09 12:24 | CONS ---
Assessment/Plan Assessment/Plan Hospital Course (Demo Recall) IMP: 1.Hypotension-borderline norbasc held today. NL EF by echo this admit 2.resp failure s/p extubation 3.cardiac arrest 4.pneumoperitoneum-resolved 5.Positive troponin-now trended neg 6.renal failure-improved 7.Leukocytosis 8. anemia 9, Thrombocytopenia-ongoing some worsening 10.Resp failure-hypercapneic s/p intubation. Transferred to ICU for this 11.PNA-by cxr Recc: -IN ICU -Continue norvasc as tolerated only as thus will decrease dose -Continue asa -continue steroids/bronchodilators -Continue abx's and f/u cx data -Continue risperdal -follow MS closely -Follow volume status clsoely -wean vent as tolerated Consultation Date/Type/Reason Admit Date/Time Aug 27, 2018 at 00:03 Initial Consult Date 08/27/18 Type of Consult Cardiology Reason for Consultation positive troponin Requesting Provider: VIVIANA NOLAN MD Date/Time of Note DATE: 09/09/18 TIME: 12:20 Exam/Review of Systems Vital Signs Vitals Vital Signs Date Temp Pulse Resp B/P (MAP) Pulse Ox O2 O2 Flow FiO2 Time Delivery Rate 09/09/18 70 11 99 35 11:35 09/09/18 110/67 08:30 (81) 09/09/18 98.4 Mechanical 08:00 Ventilator 09/07/18 6.0 08:06 Intake and Output 09/08/18 09/08/18 09/09/18 1515:00 23:00 07:00 IntakeIntake Total 801.875 ml 786.000 ml 999.625 ml OutputOutput Total 625 ml 775 ml 1420 ml BalanceBalance 176.875 ml 11.000 ml -420.375 ml Exam Exam Review of Systems: CONSTITUTIONAL: No fevers, chills. PULMONARY: intubated CARDIOVASCULAR: No chest pain/palpitations GASTROINTESTINAL: No nausea/vomiting. GENITOURINARY: No hematuria/dysuria. MUSCULOSKELETAL: No myagias/arthalgias. PSYCHIATRIC: The patient denies depression. NEUROLOGIC: No weakness Constitutional: alert Psych: no complaints Head: normocephalic ENMT: intubated Neck: supple, jvd (9 cm water) Respiratory: diminished breath sounds (at bases/b) Cardiovascular: regular rate and rhythm Gastrointestinal: soft, non-tender Musculoskeletal: muscle tone (normal) Extremities: edema (none) Neurological: other (No focal deficits) Labs Result Diagram: 09/09/185 09/09/18 0355 Results 24hrs Laboratory Tests Test 09/09/18 03:55 White Blood Count 2.9 #L Red Blood Count 3.16 L Hemoglobin 8.8 L Hematocrit 28.5 L Mean Corpuscular Volume 90.2 Mean Corpuscular Hemoglobin 27.8 L Mean Corpuscular Hemoglobin Concent 30.9 L Red Cell Distribution Width 16.5 H Platelet Count 78 #L Mean Platelet Volume 11.5 H Immature Granulocytes % 0.700 H Neutrophils % 80.0 H Lymphocytes % 16.2 Monocytes % 3.1 Eosinophils % 0.0 Basophils % 0.0 Nucleated Red Blood Cells % 0.0 Immature Granulocytes # 0.020 Neutrophils # 2.3 Lymphocytes # 0.5 L Monocytes # 0.1 L Eosinophils # 0.0 Basophils # 0.0 Nucleated Red Blood Cells # 0.0 Sodium Level 148 H Potassium Level 3.8 Chloride Level 112 H Carbon Dioxide Level 37 H Anion Gap -1 L Blood Urea Nitrogen 38 H Creatinine 0.77 Est Glomerular Filtrat Rate mL/min > 60 Glucose Level 125 # Calcium Level 9.0 Phosphorus Level 2.1 L Magnesium Level 2.6 H Medications Medications Current Medications Ondansetron HCl (Zofran Inj) 4 mg Q6H PRN IV NAUSEA AND/OR VOMITING Last administered on 09/06/18at 18:46; Admin Dose 4 MG; Start 08/26/18 at 23:30 Acetaminophen (Tylenol Supp) 650 mg Q4H PRN [place] PAIN LEVEL 1-3 OR FEVER; Start 08/26/18 at 23:30 Aspirin (Aspirin) 81 mg DAILY PO Last administered on 09/09/18 08:10; Admin Dose 81 MG; Start 08/29/18 at 09:00 Famotidine (Pepcid) 20 mg Q12 PO Last administered on 09/09/18at 08:10; Admin Dose 20 MG; Start 08/29/18 at 21:00 Zolpidem Tartrate (Ambien) 5 mg HS PRN PO INSOMNIA Last administered on 09/04/18at 23:03; Admin Dose 5 MG; Start 09/01/18 at 00:00 Amlodipine Besylate (Norvasc) 10 mg DAILY PO Last administered on 09/06/18 08:36; Admin Dose 10 MG; Start 09/01/18 at 15:00 Guaifenesin/ Dextromethorphan (Robitussin Dm Liquid Cup) 5 ml Q6H PRN PO COUGH Last administered on 09/05/18 09:04; Admin Dose 5 ML; Start 09/01/18 at 20:00 Divalproex Sodium (Depakote) 250 mg Q8H PO Last administered on 09/09/18 09:13; Admin Dose 250 MG; Start 09/02/18 at 17:00 Morphine Sulfate (morphine) 6 mg Q4H PRN PO SEVERE PAIN LEVEL 7-10 Last administered on 09/07/18 07:18; Admin Dose 6 MG; Start 09/04/18 at 21:30 Albuterol/ Ipratropium (Duoneb) 3 ml Q3H RESP THERAPY PRN HHN SHORTNESS OF BREATH; Start 09/05/18 at 20:00 Risperidone (Risperdal) 1 mg BID PO Last administered on 09/09/18 08:10; Admin Dose 1 MG; Start 09/06/18 at 21:00 Vancomycin HCl (Vanco Iv Per Pharmacy) VANCOMYCIN PER PHARMACY PER PROTOCOL XX ; Start 09/06/18 at 15:00 Meropenem/Sodium Chloride 50 ml @ 100 mls/hr Q12 IVPB Last administered on 09/09/18 09:45; Admin Dose 100 MLS/HR; Start 09/06/18 at 15:00 Methylprednisolone Sodium Succinate (Solu-Medrol) 40 mg Q6 IV Last administered on 09/09/18 05:09; Admin Dose 40 MG; Start 09/07/18 at 12:00 Propofol 100 ml @ 1.875 mls/ hr Q12H IV Last administered on 09/09/18 08:09; Admin Dose 15 MLS/HR; Start 09/07/18 at 11:00 Fentanyl 100 ml @ 2.5 mls/hr TITRATE IV Last administered on 09/09/18 09:17; Admin Dose 5 MLS/HR; Start 09/07/18 at 11:30 Norepinephrine 250 ml @ 1.875 mls/ hr TITRATE IV Last administered on 09/08/18 02:08; Admin Dose 11.25 MLS/HR; Start 09/07/18 at 11:00 Alteplase, Recombinant (Cathflo (Activase)) 2 mg MAY REPEAT X1 PRN CATHETER IF CATHETER REMAINS OCCULUDED; Start 09/07/18 at 11:00 Vancomycin HCl 1.5 gm/Sodium Chloride 250 ml @ 83.333 mls/ hr Q24H IVPB Last a dministered on 09/09/18at 06:18; Admin Dose 83.333 MLS/HR; Start 09/09/18 at 06:00 Albuterol (Ventolin Hfa) 4 puff Q6H RESP THERAPY INH Last administered on 09/09/18at 07:57; Admin Dose 4 PUFF; Start 09/08/18 at 14:00 Ipratropium [place] (Atrovent Hfa) 4 puff Q6H RESP THERAPY INH Last administered on 09/09/18at 07:57; Admin Dose 4 PUFF; Start 09/08/18 at 14:00 MITCHEL DESOUZA Sep 09, 2018 12:24
--- NOTE | 2018-09-09 12:48 | CONS ---
Assessment/Plan Assessment/Plan Hospital Course (Demo Recall) Patient is intubated awake and looks comfortable no fevers overnight, he tolerated CPAP. WBC 2.9 neutrophils 80 BUN 38 creatinine 0.77 Antimicrobials: Vancomycin, meropenem Indwelling: Right IJ triple-lumen catheter, endotracheal tube, NG tube, Sellers Physical examination: Well-developed chronically ill-appearing cachectic elderly man who is in no distress very confused and sound congested. Head atraumatic normocephalic sclera nonicteric, neck is supple chest rise symmetrical breath so unds diminished bases. Heart: S1-S2. Abdomen soft bowel sounds present. Extremities cyanotic Assessment: 1. Acute hypoxemic respiratory failure 2. Pneumonia, possibly aspirated, patient is reintubated 4. Pneumoperitoneum of unclear etiology, no perforation per surgical note, status post chest tube 5. Dementia 5. Anemia 6. History of non-ST elevation NH 7. Status post cardiac arrest 8. RIJ TLC Plan: Patient is stable, tolerates weaning trials, continue antibiotics, follow pulmonary recommendations Consultation Date/Type/Reason Admit Date/Time Aug 27, 2018 at 00:03 Initial Consult Date 08/27/18 Type of Consult ID Requesting Provider: VIVIANA NOLAN MD Date/Time of Note DATE: 09/09/18 TIME: 12:45 Exam/Review of Systems Exam Vitals Vital Signs Date Temp Pulse Resp B/P (MAP) Pulse Ox O2 O2 Flow FiO2 Time Delivery Rate 09/09/18 74 12 124/68 97 12:30 (86) 09/09/18 98.6 CPAP 12:00 Mechanical Ventilator 09/09/18 35 11:35 09/07/18 6.0 08:06 Intake and Output 09/08/18 09/08/18 09/09/18 1515:00 23:00 07:00 IntakeIntake Total 801.875 ml 786.000 ml 999.625 ml OutputOutput Total 625 ml 775 ml 1420 ml BalanceBalance 176.875 ml 11.000 ml -420.375 ml Results Result Diagram: 09/09/18 0355 09/09/18 0355 Results 24hrs Laboratory Tests Test 09/09/18 03:55 White Blood Count 2.9 #L Red Blood Count 3.16 L Hemoglobin 8.8 L Hematocrit 28.5 L Mean Corpuscular Volume 90.2 Mean Corpuscular Hemoglobin 27.8 L Mean Corpuscular Hemoglobin Concent 30.9 L Red Cell Distribution Width 16.5 H Platelet Count 78 #L Mean Platelet Volume 11.5 H Immature Granulocytes % 0.700 H Neutrophils % 80.0 H Lymphocytes % 16.2 Monocytes % 3.1 Eosinophils % 0.0 Basophils % 0.0 Nucleated Red Blood Cells % 0.0 Immature Granulocytes # 0.020 Neutrophils # 2.3 Lymphocytes # 0.5 L Monocytes # 0.1 L Eosinophils # 0.0 Basophils # 0.0 Nucleated Red Blood Cells # 0.0 Sodium Level 148 H Potassium Level 3.8 Chloride Level 112 H Carbon Dioxide Level 37 H Anion Gap -1 L Blood Urea Nitrogen 38 H Creatinine 0.77 Est Glomerular Filtrat Rate mL/min > 60 Glucose Level 125 # Calcium Level 9.0 Phosphorus Level 2.1 L Magnesium Level 2.6 H Medications Medication Current Medications Ondansetron HCl (Zofran Inj) 4 mg Q6H PRN IV NAUSEA AND/OR VOMITING Last administered on 09/06/18 18:46; Admin Dose 4 MG; Start 08/26/18 at 23:30 Acetaminophen (Tylenol Supp) 650 mg Q4H PRN [place] PAIN LEVEL 1-3 OR FEVER; Start 08/26/18 at 23:30 Aspirin (Aspirin) 81 mg DAILY PO Last administered on 09/09/18 08:10; Admin Dose 81 MG; Start 08/29/18 at 09:00 Famotidine (Pepcid) 20 mg Q12 PO Last administered on 09/09/18 08:10; Admin Dose 20 MG; Start 08/29/18 at 21:00 Zolpidem Tartrate (Ambien) 5 mg HS PRN PO INSOMNIA Last administered on 09/04/18 23:03; Admin Dose 5 MG; Start 09/01/18 at 00:00 Guaifenesin/ Dextromethorphan (Robitussin Dm Liquid Cup) 5 ml Q6H PRN PO COUGH Last administered on 09/05/18 09:04; Admin Dose 5 ML; Start 09/01/18 at 20:00 Divalproex Sodium (Depakote) 250 mg Q8H PO Last administered on 09/09/18 09:13; Admin Dose 250 MG; Start 09/02/18 at 17:00 Morphine Sulfate (morphine) 6 mg Q4H PRN PO SEVERE PAIN LEVEL 7-10 Last ad ministered on 09/07/18 07:18; Admin Dose 6 MG; Start 09/04/18 at 21:30 Albuterol/ Ipratropium (Duoneb) 3 ml Q3H RESP THERAPY PRN HHN SHORTNESS OF BREATH; Start 09/05/18 at 20:00 Risperidone (Risperdal) 1 mg BID PO Last administered on 09/09/18 08:10; Admin Dose 1 MG; Start 09/06/18 at 21:00 Vancomycin HCl (Vanco Iv Per Pharmacy) VANCOMYCIN PER PHARMACY PER PROTOCOL XX ; Start 09/06/18 at 15:00 Meropenem/Sodium Chloride 50 ml @ 100 mls/hr Q12 IVPB Last administered on 09/09/18 09:45; Admin Dose 100 MLS/HR; Start 09/06/18 at 15:00 Methylprednisolone Sodium Succinate (Solu-Medrol) 40 mg Q6 IV Last administered on 09/09/18 12:27; Admin Dose 40 MG; Start 09/07/18 at 12:00 Propofol 100 ml @ 1.875 mls/ hr Q12H IV Last administered on 09/09/18 08:09; Admin Dose 15 MLS/HR; Start 09/07/18 at 11:00 Fentanyl 100 ml @ 2.5 mls/hr TITRATE IV Last administered on 09/09/18 09:17; Admin Dose 5 MLS/HR; Start 09/07/18 at 11:30 Norepinephrine 250 ml @ 1.875 mls/ hr TITRATE IV Last administered on 09/08/18 02:08; Admin Dose 11.25 MLS/HR; Start 09/07/18 at 11:00 Alteplase, Recombinant (Cathflo (Activase)) 2 mg MAY REPEAT X1 PRN CATHETER IF CATHETER REMAINS OCCULUDED; Start 09/07/18 at 11:00 Vancomycin HCl 1.5 gm/Sodium Chloride 250 ml @ 83.333 mls/ hr Q24H IVPB Last administered on 09/09/18 06:18; Admin Dose 83.333 MLS/HR; Start 09/09/18 at 06:00 Albuterol (Ventolin Hfa) 4 puff Q6H RESP THERAPY INH Last administered on 09/09/18 07:57; Admin Dose 4 PUFF; Start 09/08/18 at 14:00 Ipratropium [place] (Atrovent Hfa) 4 puff Q6H RESP THERAPY INH Last administered on 09/09/18 07:57; Admin Dose 4 PUFF; Start 09/08/18 at 14:00 Amlodipine Besylate (Norvasc) 5 mg DAILY PO ; Start 09/10/18 at 09:00 AALIYAH MEZA NP Sep 09, 2018 12:48
--- NOTE | 2018-09-09 13:40 | PN ---
Date/Time of Note Date/Time of Note DATE: 09/09/18 TIME: 13:24 Assessment/Plan VTE Prophylaxis Risk score (from [facility] – [place], [place])>0 risk: 14 SCD applied (from [facility] – [place], [place]): Yes Pharmacological prophylaxis: NA/contraindicated Pharm contraindication: thrombocytopenia Lines/Catheters IV Catheter Type (from [facility]): Central Line Central line still needed: Yes Urinary Cath still in place: Yes Reason Cath still needed: urinary retention Assessment/Plan Hospital Course Patient is currently orally intubated on ventilatory support undergoing CPAP trial. Patient is on fentanyl drip for pain. Assessment/Plan -Hypoxic respiratory failure requiring mechanical ventilation, Dr. Mejias is following in pulmonology consultation. -Sepsis with shock, resolving. Dr. Sutton is following in infection disease consultation. -Status post cardiac arrest. Dr. Hernández is following in cardiology consultation. -Left-sided pneumothorax, status post left side chest tube placement, s/p self d/c CT. -S/p pneumoperitoneum most likely due to cardiac arrest. Dr. Rivas is following in general surgery consultation. -Left axillary and brachial DVT, was on Lovenox which is currently held due to thrombocytopenia -Left lower lobe pneumonia -Severe emphysema -JEREMÍAS with possible chronic kidney disease. Dr Arvizu is following in nephrology consultation. -Schizoaffective disorder depressed type. Psychiatric consult is appreciated, continue Fabiola Freeman Critical care time spent more than 30 minutes. Further recommendations based on clinical course. Plan of care discussed with Dr. Juarez. Result Diagram: 09/09/18 0355 09/09/18 0355 Results 24hrs Laboratory Tests Test 09/09/18 03:55 White Blood Count 2.9 #L Red Blood Count 3.16 L Hemoglobin 8.8 L Hematocrit 28.5 L Mean Corpuscular Volume 90.2 Mean Corpuscular Hemoglobin 27.8 L Mean Corpuscular Hemoglobin Concent 30.9 L Red Cell Distribution Width 16.5 H Platelet Count 78 #L Mean Platelet Volume 11.5 H Immature Granulocytes % 0.700 H Neutrophils % 80.0 H Lymphocytes % 16.2 Monocytes % 3.1 Eosinophils % 0.0 Basophils % 0.0 Nucleated Red Blood Cells % 0.0 Immature Granulocytes # 0.020 Neutrophils # 2.3 Lymphocytes # 0.5 L Monocytes # 0.1 L Eosinophils # 0.0 Basophils # 0.0 Nucleated Red Blood Cells # 0.0 Sodium Level 148 H Potassium Level 3.8 Chloride Level 112 H Carbon Dioxide Level 37 H Anion Gap -1 L Blood Urea Nitrogen 38 H Creatinine 0.77 Est Glomerular Filtrat Rate mL/min > 60 Glucose Level 125 # Calcium Level 9.0 Phosphorus Level 2.1 L Magnesium Level 2.6 H Exam/Review of Systems Exam Vitals Vital Signs Date Temp Pulse Resp B/P (MAP) Pulse Ox O2 O2 Flow FiO2 Time Delivery Rate 09/09/18 74 12 124/68 97 12:30 (86) 09/09/18 98.6 CPAP 12:00 Mechanical Ventilator 09/09/18 35 11:35 09/07/18 6.0 08:06 Intake and Output 09/08/18 09/08/18 09/09/18 1515:00 23:00 07:00 IntakeIntake Total 801.875 ml 786.000 ml 999.625 ml OutputOutput Total 625 ml 775 ml 1420 ml BalanceBalance 176.875 ml 11.000 ml -420.375 ml Constitutional: other (Orally intubated) Respiratory: diminished breath sounds Cardiovascular: regular rate and rhythm Gastrointestinal: soft, non-tender Musculoskeletal: nl extremities to inspection Extremities: normal pulses Neurological: nl mental status Results Results 24hrs Laboratory Tests Test 09/09/18 03:55 White Blood Count 2.9 #L Red Blood Count 3.16 L Hemoglobin 8.8 L Hematocrit 28.5 L Mean Corpuscular Volume 90.2 Mean Corpuscular Hemoglobin 27.8 L Mean Corpuscular Hemoglobin Concent 30.9 L Red Cell Distribution Width 16.5 H Platelet Count 78 #L Mean Platelet Volume 11.5 H Immature Granulocytes % 0.700 H Neutrophils % 80.0 H Lymphocytes % 16.2 Monocytes % 3.1 Eosinophils % 0.0 Basophils % 0.0 Nucleated Red Blood Cells % 0.0 Immature Granulocytes # 0.020 Neutrophils # 2.3 Lymphocytes # 0.5 L Monocytes # 0.1 L Eosinophils # 0.0 Basophils # 0.0 Nucleated Red Blood Cells # 0.0 Sodium Level 148 H Potassium Level 3.8 Chloride Level 112 H Carbon Dioxide Level 37 H Anion Gap -1 L Blood Urea Nitrogen 38 H Creatinine 0.77 Est Glomerular Filtrat Rate mL/min > 60 Glucose Level 125 # Calcium Level 9.0 Phosphorus Level 2.1 L Magnesium Level 2.6 H Medications Medication Current Medications Ondansetron HCl (Zofran Inj) 4 mg Q6H PRN IV NAUSEA AND/OR VOMITING Last administered on 09/06/18 18:46; Admin Dose 4 MG; Start 08/26/18 at 23:30 Acetaminophen (Tylenol Supp) 650 mg Q4H PRN [place] PAIN LEVEL 1-3 OR FEVER; Start 08/26/18 at 23:30 Aspirin (Aspirin) 81 mg DAILY PO Last administered on 09/09/18 08:10; Admin Dose 81 MG; Start 08/29/18 at 09:00 Famotidine (Pepcid) 20 mg Q12 PO Last administered on 09/09/18 08:10; Admin Dose 20 MG; Start 08/29/18 at 21:00 Zolpidem Tartrate (Ambien) 5 mg HS PRN PO INSOMNIA Last administered on 09/04/18 23:03; Admin Dose 5 MG; Start 09/01/18 at 00:00 Guaifenesin/ Dextromethorphan (Robitussin Dm Liquid Cup) 5 ml Q6H PRN PO COUGH Last administered on 09/05/18 09:04; Admin Dose 5 ML; Start 09/01/18 at 20:00 Divalproex Sodium (Depakote) 250 mg Q8H PO Last administered on 09/09/18 09:13; Admin Dose 250 MG; Start 09/02/18 at 17:00 Morphine Sulfate (morphine) 6 mg Q4H PRN PO SEVERE PAIN LEVEL 7-10 Last administered on 09/07/18 07:18; Admin Dose 6 MG; Start 09/04/18 at 21:30 Albuterol/ Ipratropium (Duoneb) 3 ml Q3H RESP THERAPY PRN HHN SHORTNESS OF BREATH; Start 09/05/18 at 20:00 Risperidone (Risperdal) 1 mg BID PO Last administered on 09/09/18 08:10; Admin Dose 1 MG; Start 09/06/18 at 21:00 Vancomycin HCl (Vanco Iv Per Pharmacy) VANCOMYCIN PER PHARMACY PER PROTOCOL XX ; Start 09/06/18 at 15:00 Meropenem/Sodium Chloride 50 ml @ 100 mls/hr Q12 IVPB Last administered on 09/09/18 09:45; Admin Dose 100 MLS/HR; Start 09/06/18 at 15:00 Methylprednisolone Sodium Succinate (Solu-Medrol) 40 mg Q6 IV Last administered on 09/09/18 12:27; Admin Dose 40 MG; Start 09/07/18 at 12:00 Propofol 100 ml @ 1.875 mls/ hr Q12H IV Last administered on 09/09/18 08:09; Admin Dose 15 MLS/HR; Start 09/07/18 at 11:00 Fentanyl 100 ml @ 2.5 mls/hr TITRATE IV Last administered on 09/09/18 09:17; Admin Dose 5 MLS/HR; Start 09/07/18 at 11:30 Norepinephrine 250 ml @ 1.875 mls/ hr TITRATE IV Last administered on 09/08/18 02:08; Admin Dose 11.25 MLS/HR; Start 09/07/18 at 11:00 Alteplase, Recombinant (Cathflo (Activase)) 2 mg MAY REPEAT X1 PRN CATHETER IF CATHETER REMAINS OCCULUDED; Start 09/07/18 at 11:00 Vancomycin HCl 1.5 gm/Sodium Chloride 250 ml @ 83.333 mls/ hr Q24H IVPB Last administered on 09/09/18 06:18; Admin Dose 83.333 MLS/HR; Start 09/09/18 at 06:00 Albuterol (Ventolin Hfa) 4 puff Q6H RESP THERAPY INH Last administered on 09/09/18 13:10; Admin Dose 4 PUFF; Start 09/08/18 at 14:00 Ipratropium [place] (Atrovent Hfa) 4 puff Q6H RESP THERAPY INH Last administered on 09/09/18 13:10; Admin Dose 4 PUFF; Start 09/08/18 at 14:00 Amlodipine Besylate (Norvasc) 5 mg DAILY PO ; Start 09/10/18 at 09:00 HERMES HARRIS Sep 09, 2018 13:34
[2018-09-09] MEDS: ZOLPIDEM 5 MG TAB PO PRN (20:38)
[2018-09-09] MEDS: ALBUTEROL/IPRATROPIUM (NEB) 3 ML AMP HHN SCH (20:57)
[2018-09-10] VITALS (24 sets, daily range): BP systolic 117–150; BP diastolic 70–92; PULSE 78–100; RESP 14–23
[2018-09-10] MEDS: METHYLPREDNISOLONE 40 MG INJ IV SCH ×4 (00:33→17:13)
[2018-09-10] MEDS: DIVALPROEX (EC) 250 MG TAB PO SCH ×3 (00:33→17:09)
[2018-09-10] MEDS: ALBUTEROL/IPRATROPIUM (NEB) 3 ML AMP HHN SCH ×4 (01:13→19:12)
[2018-09-10] MEDS: morphine LIQ (10 MG/5 ML) CUP PO PRN (02:47)
[2018-09-10] MEDS: VANCOMYCIN HCL 1.5 GM in SOD CHLORIDE 0.9% 250 ML IVPB SCH (05:48)
[2018-09-10] MEDS ORDERED: DEXTROSE 5% 1,000 ML IV SCH (07:00)
--- NOTE | 2018-09-10 08:10 | PN ---
DATE: 09/10/2018 SUBJECTIVE: The patient was extubated yesterday. This morning, the patient is alert, requesting for water. No other events noted. OBJECTIVE: VITAL SIGNS: Blood pressure is 138/84, respirations 18, pulse 85, temperature 97.4. HEENT: Head is normocephalic. NECK: Supple. HEART: Regular rate. LUNGS: Show diminished breath sounds at the base. ABDOMEN: Soft, nontender to palpation without rebound or guarding. EXTREMITIES: Negative for clubbing, cyanosis. Trace edema. DERMATOLOGIC: No rashes. MUSCULOSKELETAL: No joint effusions. NEUROLOGIC: No change in exam. MEDICATIONS: Reviewed. LABORATORY DATA: Shows a white count 3.7, hemoglobin 9.7, platelet count 78. Sodium 151, BUN 42, cr eatinine 0.77, bicarbonate 37. IMAGING STUDY: The patient's chest x-ray from 09/09/2018 was reviewed, shows right basilar infiltrat e. ASSESSMENT AND PLAN: 1. Nonoliguric acute kidney injury with unknown baseline creatinine. Etiology is secondary to hemod ynamics. Renal function is improved. Continue current treatment plan, supportive care, renally dose all medicines. 2. Hypernatremia. The patient has a free water deficit of approximately 3.5 liters. We will contin ue to encourage free water intake. Start D5 water at 50 mL an hour and monitor sodium levels closely . 3. Anemia. Continue to monitor hemoglobin and hematocrit levels. 4. Mineral bone disorder, monitor calcium and phosphorus levels. 5. Metabolic alkalosis with respiratory compensation. Plan is to continue to monitor bicarbonate le vels. May consider intermittent Diamox. 6. Respiratory failure, the patient is status post extubation. Continue to monitor. Currently stab le on nasal cannula. 7. History of diastolic heart failure. Monitor I's and O's closely. May give intermittent diuretic therapy with Diamox in the setting of alkalemia. 8. Status post shock, etiology is felt to be possibly septic, hypovolemic. The patient is currently on pressor support. Continue to monitor. 9. Status post cardiac arrest. 10. Status post pneumothorax. 11. History of encephalopathy. Dictated By: JOE CHU/DUKE Conf#: [id number] DID#: [id number] CC: WEI SHAH NP; VIVIANA NOLAN MD; WENDY LOVE MD;*EndCC*
--- NOTE | 2018-09-10 08:44 | CONS ---
Consult Date/Type/Reason Admit Date/Time Aug 27, 2018 at 00:03 Initial Consult Date 08/27/18 Requesting Provider: VIVIANA NOLAN MD Date/Time of Note DATE: 09/10/18 TIME: 08:41 Subjective No acuteevents - pt extubated - + SOB, but no CP - con't to keep euvolemic. ROS: No fever, no chills, no nausea, no vomiting, no diarrhea/constipation No recent weight changes No chest pain, no PND, no orthopnea + SOB No dizziness, blurred vision No thirst, no heat or cold intolerance Objective Vitals Vital Signs Date Temp Pulse Resp B/P (MAP) Pulse Ox O2 O2 Flow FiO2 Time Delivery Rate 09/10/18 99 16 98 Nasal 2.0 08:32 Cannula 09/10/18 138/84 06:00 (102) 09/10/18 97.4 04:00 09/09/18 35 13:01 Intake and Output 09/09/18 09/09/18 09/10/18 1515:00 23:00 07:00 IntakeIntake Total 452.500 ml 650 ml 250 ml OutputOutput Total 700 ml 2470 ml 1430 ml BalanceBalance -247.500 ml -1820 ml -1180 ml Exam General: WN/WD/NAD, AOx 2-3 psych HEENT: Unicetric/atraumatic/EOMI (follow commands) - FM on NECK: JVD elevated, no thyromegaly Lymph: no lymphadenopathy HEART: regular with no S3, II/ systolic murmur at apex LUNGS: Coarse sounds, wheezing ABD: soft, NT, ND, +BS : Intact Neuro: non focal SKIN: chronic changes EXT: no edema Results/Medications Result Diagram: 09/10/18 0400 09/10/18 0400 Results 24 hrs Laboratory Tests Test 09/09/18 12:30 09/10/18 04:00 09/10/18 07:00 Blood Gas Specimen Blood arterial Blood arterial Source Arterial Blood Date 09/09/2018 1:08:19 PM 09/10/2018 7:42:36 AM Drawn Arterial Blood pH 7.435 7.464 H (Temp corrected) Arterial Blood pCO2 53.3 H 38.8 (Temp correct) Arterial Blood pO2 75.5 L 71.3 L (Temp corrected) Arterial Blood HCO3 35.0 H 27.2 H Arterial Blood Base 9.3 H 3.3 H Excess Arterial Blood 94.7 L 93.2 L Oxygen Saturation Miller Test ACCEPTAB ACCEPTAB Arterial Blood Gas Right Radial Right Radial Puncture Site Arterial 0.5 1.5 Blood Carboxyhemoglobin Arterial Blood 0 0.3 Methemoglobin Blood Gas A-a O2 112.1 H 97.0 H Differential Oxyhemoglobin Percent 94.2 91.5 L Blood Gas Temperature 37.0 37.0 Blood Gas Modality VENT - CPAP NASAL CANNULA FiO2 35.0 30.0 Blood Gas Low PEEP 5.0 Setting Blood Gas Pressure 10 Support Blood Gas Notified Whom TM TM Blood Gas Notified Time 09/09/2018 1:29:03 PM 09/10/2018 8:13:17 AM White Blood Count 3.7 #L Red Blood Count 3.48 L Hemoglobin 9.7 L Hematocrit 31.6 L Mean Corpuscular Volume 90.8 Mean Corpuscular 27.9 L Hemoglobin Mean Corpuscular 30.7 L Hemoglobin Concent Red Cell Distribution 16.5 H Width Platelet Count 78 L Mean Platelet Volume 11.2 H Immature Granulocytes % 1.300 H Neutrophils % 85.0 H Lymphocytes % 10.2 L Monocytes % 3.5 Eosinophils % 0.0 Basophils % 0.0 Nucleated Red Blood 0.0 Cells % Immature Granulocytes # 0.050 H Neutrophils # 3.2 Lymphocytes # 0.4 L Monocytes # 0.1 L Eosinophils # 0.0 Basophils # 0.0 Nucleated Red Blood 0.0 Cells # Sodium Level 151 H Potassium Level 3.6 Chloride Level 113 H Carbon Dioxide Level 37 H Anion Gap 1 L Blood Urea Nitrogen 42 H Creatinine 0.77 Est Glomerular Filtrat > 60 Rate mL/min Glucose Level 130 Calcium Level 9.4 Phosphorus Level 2.6 Magnesium Level 2.5 Home Meds Reported Medications Docusate Sodium* (Colace*) 100 Mg Capsule, 100 MG PO Q24H PRN for CONSTIPATION, #30 CAP 08/26/18 Polyethylene Glycol* (Miralax*) 17 Gm Powd.pack, 17 GM PO DAILY PRN for NEEDED, #30 PACKET 08/26/18 Acetaminophen* (Acetaminophen*) 325 Mg Tablet, 650 MG PO Q4H PRN for PAIN - 05/15, #30 TAB AND FEVER>101F 08/26/18 Sennosides* (Senna Lax*) 8.6 Mg Tablet, 1 TAB PO NEEDED, TAB 08/26/18 Mv,Minerals/Fa/Lycopene/Ginkgo (ONE DAILY MEN'S 50+ TABLET) 1 Each Tablet, 1 EACH PO DAILY, TAB 08/26/18 Divalproex Sodium* (Depakote*) 125 Mg Tablet.dr, 250 MG PO Q8H, #90 TAB 08/26/18 Quetiapine Fumarate* (Seroquel*) 50 Mg Tablet, 50 MG PO Q8H, TAB 08/26/18 Ipratropium-Albuterol (Ipratropium-Albuterol) 0.5-3 Mg/3 Ml Ampul.neb, 3 ML INHALATION Q4H PRN for WHEEZING AND SOB, #30 VIAL 08/26/18 Budesonide-Formoterol Fumarate* (Symbicort*) 160-4.5 Hfa.aer.ad, 2 PUFF INHALATION BID, #1 EACH 08/26/18 Medications Current Medications Ondansetron HCl (Zofran Inj) 4 mg Q6H PRN IV NAUSEA AND/OR VOMITING Last administered on 09/06/18at 18:46; Admin Dose 4 MG; Start 08/26/18 at 23:30 Acetaminophen (Tylenol Supp) 650 mg Q4H PRN [place] PAIN LEVEL 1-3 OR FEVER; Start 08/26/18 at 23:30 Aspirin (Aspirin) 81 mg DAILY PO Last administered on 09/09/18 08:10; Admin Dose 81 MG; Start 08/29/18 at 09:00 Famotidine (Pepcid) 20 mg Q12 PO Last administered on 09/09/18at 20:38; Admin Dose 20 MG; Start 08/29/18 at 21:00 Zolpidem Tartrate (Ambien) 5 mg HS PRN PO INSOMNIA Last administered on 9at 20:38; Admin Dose 5 MG; Start 09/01/18 at 00:00 Guaifenesin/ Dextromethorphan (Robitussin Dm Liquid Cup) 5 ml Q6H PRN PO COUGH Last administered on 09/05/18at 09:04; Admin Dose 5 ML; Start 09/01/18 at 20:00 Divalproex Sodium (Depakote) 250 mg Q8H PO Last administered on 09/10/18 00:33; Admin Dose 250 MG; Start 09/02/18 at 17:00 Morphine Sulfate (morphine) 6 mg Q4H PRN PO SEVERE PAIN LEVEL 7-10 Last administered on 09/10/18 02:47; Admin Dose 6 MG; Start 09/04/18 at 21:30 Albuterol/ Ipratropium (Duoneb) 3 ml Q3H RESP THERAPY PRN HHN SHORTNESS OF BREATH; Start 09/05/18 at 20:00 Risperidone (Risperdal) 1 mg BID PO Last administered on 09/09/18 20:38; Admin Dose 1 MG; Start 09/06/18 at 21:00 Vancomycin HCl (Vanco Iv Per Pharmacy) VANCOMYCIN PER PHARMACY PER PROTOCOL XX ; Start 09/06/18 at 15:00 Meropenem/Sodium Chloride 50 ml @ 100 mls/hr Q12 IVPB Last administered on 09/09/18 20:38; Admin Dose 100 MLS/HR; Start 09/06/18 at 15:00 Methylprednisolone Sodium Succinate (Solu-Medrol) 40 mg Q6 IV Last administered on 09/10/18 05:48; Admin Dose 40 MG; Start 09/07/18 at 12:00 Propofol 100 ml @ 1.875 mls/ hr Q12H IV Last administered on 09/09/18 08:09; Admin Dose 15 MLS/HR; Start 09/07/18 at 11:00 Fentanyl 100 ml @ 2.5 mls/hr TITRATE IV Last administered on 09/09/18 09:17; Admin Dose 5 MLS/HR; Start 09/07/18 at 11:30 Norepinephrine 250 ml @ 1.875 mls/ hr TITRATE IV Last administered on 09/08/18 02:08; Admin Dose 11.25 MLS/HR; Start 09/07/18 at 11:00 Alteplase, Recombinant (Cathflo (Activase)) 2 mg MAY REPEAT X1 PRN CATHETER IF CATHETER REMAINS OCCULUDED; Start 09/07/18 at 11:00 Vancomycin HCl 1.5 gm/Sodium Chloride 250 ml @ 83.333 mls/ hr Q24H IVPB Last administered on 09/10/18 05:48; Admin Dose 83.333 MLS/HR; Start 09/09/18 at 06:00 Amlodipine Besylate (Norvasc) 5 mg DAILY PO ; Start 09/10/18 at 09:00 Albuterol/ Ipratropium (Duoneb) 3 ml Q6H RESP THERAPY HHN Last administered on 09/10/18at 08:32; Admin Dose 3 ML; Start 09/09/18 at 20:00 Dextrose 1,000 ml @ 50 mls/hr Q20H IV Last administered on 09/10/18at 07:00; Admin Dose 50 MLS/HR; Start 09/10/18 at 07:00 Assessment/Plan Hospital Course (Demo Recall) 1.Hypotension-off levo - better now - BP better, will allow in 140s for now, 2.Resp failure s/p intubation - now self extubated - better overall. Con't COPD rx. Con't to monitor. 3.h/o cardiac arrest - etiology unclear - con't supportive RX now. Stable now - of tele. No cardiac intervention currently planned. 4.Pneumoperitoneum - self d/c chest tube - stable SOB now. 5.Positive troponin-now trended neg - will monitor clinically for now. No intervention planned. 6.renal failure - good urine output. 7.Leukocytosis - on anti-Bx, con't med rx. On anti-Bx. 8. anemia - H/H stable - no bleeding noted. 9, Thrombocytopenia - no active bleeds noted. JIE ALEJO MD Sep 10, 2018 08:44
[2018-09-10] MEDS: MEROPENEM 1 GM/50ML(PMX) 50 ML IVPB SCH ×2 (08:57→20:31)
[2018-09-10] MEDS: AMLODIPINE 5 MG TAB PO SCH (08:58)
[2018-09-10] MEDS: FAMOTIDINE 20 MG TAB PO SCH ×2 (08:58→20:31)
[2018-09-10] MEDS: ASPIRIN 81 MG TAB PO SCH (08:58)
[2018-09-10] MEDS: BALSAM PERU/CASTOR OIL 60 GM TUBE TOP SCH (08:59)
[2018-09-10] MEDS: RISPERIDONE 1 MG TAB PO SCH ×2 (08:59→20:31)
--- NOTE | 2018-09-10 09:18 | CONS ---
Assessment/Plan Assessment/Plan Assessment/Plan (Daily) Assessment and recommendations; 1. Patient initially admitted with respiratory failure due to underlying severe hypercapnia, was extubated was transferred to medical floor then he had to be reintubated for recurrent severe hypercapnia. Status post extubation yesterday. 2. History of recent pneumoperitoneum of unknown etiology. Patient did not require any intervention. 3. Status post self removal of left-sided chest tube which was placed in the emergency room for possible pneumothorax. Patient does have a history of severe bullous emphysema. 4. Anemia and thrombocytopenia. 5. Stable seizure disorder. 6. History of hypertension. 7. Mild hypernatremia. Patient currently on appropriate free water replacement. 8. Encephalopathy with waxing and waning mental status. Continue current supportive care. Consider stopping antibiotics. Overall prognosis is poor. Consultation Date/Type/Reason Admit Date/Time Aug 27, 2018 at 00:03 Initial Consult Date 08/27/18 Type of Consult Pulmonary/critical care Patient is a 68-year-old male who is a longterm resident was sent over to the hospital because of hypothermia and altered mental status. In the emergency room, patient developed cardiac arrest requiring CPR and intubation. In the course of workup the patient also required a chest tube placement on the left side. CT imaging of the abdomen showed pneumoperitoneum with possibly perforated viscus. By the time I saw the patient in ICU, patient is orally intubated and sedated. History was obtained from medical records. Past medical history; essentially unremarkable except for possibly COPD. Medications; reviewed. Patient is currently on dopamine at 6 mics per kilogram per minute, Levophed 20 mics per minute, propofol 25 mics per kilogram per minute. Other medications were also reviewed. Allergies; none. Social history; not available. Family history and occupational history is also not available. Review of system; unable to be obtained. General exam; elderly male, orally intubated, sedated, currently in no distress. Requesting Provider: VIVIANA NOLAN MD Date/Time of Note DATE: 09/10/18 TIME: 09:15 24 HR Interval Summary Free Text/Dictation Patient's condition is tenuous but stable. Was extubated yesterday afternoon. Patient has remained hemodynamically stable also exhibiting stable pulmonary status. General exam; elderly male, awake, currently no distress. Appropriately responsive. Exam/Review of Systems Exam Vitals Vital Signs Date Temp Pulse Resp B/P (MAP) Pulse Ox O2 O2 Flow FiO2 Time Delivery Rate 09/10/18 96 21 147/86 99 09:00 (106) 09/10/18 Nasal 2.0 08:32 Cannula 09/10/18 98.0 08:00 09/09/18 35 13:01 Intake and Output 09/09/18 09/09/18 09/10/18 1515:00 23:00 07:00 IntakeIntake Total 452.500 ml 650 ml 250 ml OutputOutput Total 700 ml 2470 ml 1430 ml BalanceBalance -247.500 ml -1820 ml -1180 ml Exam HEENT exam; supple neck, no JVD. No lymphadenopathy. Midline trachea. No thyromegaly. Chest exam; diminished breath sounds bilaterally. No added sounds. S1-S2 audible, no murmurs. Regular rhythm. Dressing applied to left lateral chest wall at prior chest tube site. Abdomen exam; soft, scaphoid. Nontender. No organomegaly. Bowel sounds audible. Extremity exam; no peripheral edema. DISPATCHER SERVICE CHIEF exam; no focal motor deficit. Results Result Diagram: 09/10/180 09/10/180 Results 24hrs Laboratory Tests Test 09/09/18 12:30 09/10/18 04:00 09/10/18 07:00 Blood Gas Specimen Blood arterial Blood arterial Source Arterial Blood Date 09/09/2018 1:08:19 PM 09/10/2018 7:42:36 AM Drawn Arterial Blood pH 7.435 7.464 H (Temp corrected) Arterial Blood pCO2 53.3 H 38.8 (Temp correct) Arterial Blood pO2 75.5 L 71.3 L (Temp corrected) Arterial Blood HCO3 35.0 H 27.2 H Arterial Blood Base 9.3 H 3.3 H Excess Arterial Blood 94.7 L 93.2 L Oxygen Saturation Miller Test ACCEPTAB ACCEPTAB Arterial Blood Gas Right Radial Right Radial Puncture Site Arterial 0.5 1.5 Blood Carboxyhemoglobin Arterial Blood 0 0.3 Methemoglobin Blood Gas A-a O2 112.1 H 97.0 H Differential Oxyhemoglobin Percent 94.2 91.5 L Blood Gas Temperature 37.0 37.0 Blood Gas Modality VENT - CPAP NASAL CANNULA FiO2 35.0 30.0 Blood Gas Low PEEP 5.0 Setting Blood Gas Pressure 10 Support Blood Gas Notified Whom TM TM Blood Gas Notified Time 09/09/2018 1:29:03 PM 09/10/2018 8:13:17 AM White Blood Count 3.7 #L Red Blood Count 3.48 L Hemoglobin 9.7 L Hematocrit 31.6 L Mean Corpuscular Volume 90.8 Mean Corpuscular 27.9 L Hemoglobin Mean Corpuscular 30.7 L Hemoglobin Concent Red Cell Distribution 16.5 H Width Platelet Count 78 L Mean Platelet Volume 11.2 H Immature Granulocytes % 1.300 H Neutrophils % 85.0 H Lymphocytes % 10.2 L Monocytes % 3.5 Eosinophils % 0.0 Basophils % 0.0 Nucleated Red Blood 0.0 Cells % Immature Granulocytes # 0.050 H Neutrophils # 3.2 Lymphocytes # 0.4 L Monocytes # 0.1 L Eosinophils # 0.0 Basophils # 0.0 Nucleated Red Blood 0.0 Cells # Sodium Level 151 H Potassium Level 3.6 Chloride Level 113 H Carbon Dioxide Level 37 H Anion Gap 1 L Blood Urea Nitrogen 42 H Creatinine 0.77 Est Glomerular Filtrat > 60 Rate mL/min Glucose Level 130 Calcium Level 9.4 Phosphorus Level 2.6 Magnesium Level 2.5 Medications Medication Current Medications Ondansetron HCl (Zofran Inj) 4 mg Q6H PRN IV NAUSEA AND/OR VOMITING Last administered on 09/06/18 18:46; Admin Dose 4 MG; Start 08/26/18 at 23:30 Acetaminophen (Tylenol Supp) 650 mg Q4H PRN [place] PAIN LEVEL 1-3 OR FEVER; Start 08/26/18 at 23:30 Aspirin (Aspirin) 81 mg DAILY PO Last administered on 09/10/18 08:58; Admin Dose 81 MG; Start 08/29/18 at 09:00 Famotidine (Pepcid) 20 mg Q12 PO Last administered on 09/10/18 08:58; Admin Dose 20 MG; Start 08/29/18 at 21:00 Zolpidem Tartrate (Ambien) 5 mg HS PRN PO INSOMNIA Last administered on 09/09/18 20:38; Admin Dose 5 MG; Start 09/01/18 at 00:00 Guaifenesin/ Dextromethorphan (Robitussin Dm Liquid Cup) 5 ml Q6H PRN PO COUGH Last administered on 09/05/18 09:04; Admin Dose 5 ML; Start 09/01/18 at 20:00 Divalproex Sodium (Depakote) 250 mg Q8H PO Last administered on 09/10/18 08:58; Admin Dose 250 MG; Start 09/02/18 at 17:00 Morphine Sulfate (morphine) 6 mg Q4H PRN PO SEVERE PAIN LEVEL 7-10 Last administered on 09/10/18 02:47; Admin Dose 6 MG; Start 09/04/18 at 21:30 Albuterol/ Ipratropium (Duoneb) 3 ml Q3H RESP THERAPY PRN HHN SHORTNESS OF BREATH; Start 09/05/18 at 20:00 Risperidone (Risperdal) 1 mg BID PO Last administered on 09/10/18 08:59; Admin Dose 1 MG; Start 09/06/18 at 21:00 Vancomycin HCl (Vanco Iv Per Pharmacy) VANCOMYCIN PER PHARMACY PER PROTOCOL XX ; Start 09/06/18 at 15:00 Meropenem/Sodium Chloride 50 ml @ 100 mls/hr Q12 IVPB Last administered on 09/10/18 08:57; Admin Dose 100 MLS/HR; Start 09/06/18 at 15:00 Methylprednisolone Sodium Succinate (Solu-Medrol) 40 mg Q6 IV Last administered on 09/10/18 05:48; Admin Dose 40 MG; Start 09/07/18 at 12:00 Propofol 100 ml @ 1.875 mls/ hr Q12H IV Last administered on 09/09/18 08:09; Admin Dose 15 MLS/HR; Start 09/07/18 at 11:00 Fentanyl 100 ml @ 2.5 mls/hr TITRATE IV Last administered on 09/09/18 09:17; Admin Dose 5 MLS/HR; Start 09/07/18 at 11:30 Norepinephrine 250 ml @ 1.875 mls/ hr TITRATE IV Last administered on 09/08/18 02:08; Admin Dose 11.25 MLS/HR; Start 09/07/18 at 11:00 Alteplase, Recombinant (Cathflo (Activase)) 2 mg MAY REPEAT X1 PRN CATHETER IF CATHETER REMAINS OCCULUDED; Start 09/07/18 at 11:00 Amlodipine Besylate (Norvasc) 5 mg DAILY PO Last administered on 09/10/18 08:58; Admin Dose 5 MG; Start 09/10/18 at 09:00 Albuterol/ Ipratropium (Duoneb) 3 ml Q6H RESP THERAPY HHN Last administered on 09/10/18at 08:32; Admin Dose 3 ML; Start 09/09/18 at 20:00 Dextrose 1,000 ml @ 50 mls/hr Q20H IV Last administered on 09/10/18 07:00; Admin Dose 50 MLS/HR; Start 09/10/18 at 07:00 Vancomycin HCl 1.5 gm/Dextrose 250 ml @ 83.333 mls/ hr Q24H IVPB ; Start 09/11/18 at 06:00 GAMALIEL BASILIO Sep 10, 2018 09:18
[2018-09-10] MEDS: PROPOFOL 100 ML IV SCH ×2 (11:00→20:26)
--- NOTE | 2018-09-10 12:48 | PN ---
Date/Time of Note Date/Time of Note DATE: 09/10/18 TIME: 12:47 Assessment/Plan VTE Prophylaxis Risk score (from [facility])>0 risk: 12 SCD applied (from [facility]): Yes Pharmacological prophylaxis: NA/contraindicated Pharm contraindication: thrombocytopenia Lines/Catheters [facility]from [facility] Central Line Central line still needed: Yes Urinary Cath still in place: Yes Reason Cath still needed: urinary retention Assessment/Plan Hospital Course Patient was extubated yesterday in the afternoon patient is currently on supp lemental oxygen, awake alert. Assessment/Plan -Hypoxic respiratory failure requiring mechanical ventilation, extubated. Dr. Mejias is following in pulmonology consultation. -Sepsis with shock, resolving. Dr. Sutton is following in infection disease consultation. -Status post cardiac arrest. Dr. Hernández is following in cardiology consultation. -Left-sided pneumothorax, status post left side chest tube placement, s/p self d/c CT. -S/p pneumoperitoneum most likely due to cardiac arrest. Dr. Rivas is following in general surgery consultation. -Left axillary and brachial DVT, was on Lovenox which is currently held due to thrombocytopenia -Left lower lobe pneumonia -Severe emphysema -JEREMÍAS with possible chronic kidney disease. Dr Arvizu is following in nephrology consultation. -Schizoaffective disorder depressed type. Psychiatric consult is appreciated, continue Risperdal Depakote Critical care time spent more than 30 minutes. Further recommendations based on clinical course. Plan of care discussed with Dr. Juarez. Result Diagram: 09/10/18 0400 09/10/18 0400 Results 24hrs Laboratory Tests Test 09/10/18 04:00 09/10/18 07:00 White Blood Count 3.7 #L Red Blood Count 3.48 L Hemoglobin 9.7 L Hematocrit 31.6 L Mean Corpuscular Volume 90.8 Mean Corpuscular Hemoglobin 27.9 L Mean Corpuscular Hemoglobin Concent 30.7 L Red Cell Distribution Width 16.5 H Platelet Count 78 L Mean Platelet Volume 11.2 H Immature Granulocytes % 1.300 H Neutrophils % 85.0 H Lymphocytes % 10.2 L Monocytes % 3.5 Eosinophils % 0.0 Basophils % 0.0 Nucleated Red Blood Cells % 0.0 Immature Granulocytes # 0.050 H Neutrophils # 3.2 Lymphocytes # 0.4 L Monocytes # 0.1 L Eosinophils # 0.0 Basophils # 0.0 Nucleated Red Blood Cells # 0.0 Sodium Level 151 H Potassium Level 3.6 Chloride Level 113 H Carbon Dioxide Level 37 H Anion Gap 1 L Blood Urea Nitrogen 42 H Creatinine 0.77 Est Glomerular Filtrat Rate mL/min > 60 Glucose Level 130 Calcium Level 9.4 Phosphorus Level 2.6 Magnesium Level 2.5 Blood Gas Specimen Source Blood arterial Arterial Blood Date Drawn 09/10/2018 7:42:36 AM Arterial Blood pH (Temp corrected) 7.464 H Arterial Blood pCO2 (Temp correct) 38.8 Arterial Blood pO2 (Temp corrected) 71.3 L Arterial Blood HCO3 27.2 H Arterial Blood Base Excess 3.3 H Arterial Blood Oxygen Saturation 93.2 L Miller Test ACCEPTAB Arterial Blood Gas Puncture Site Right Radial Arterial Blood Carboxyhemoglobin 1.5 Arterial Blood Methemoglobin 0.3 Blood Gas A-a O2 Differential 97.0 H Oxyhemoglobin Percent 91.5 L Blood Gas Temperature 37.0 Blood Gas Modality NASAL CANNULA FiO2 30.0 Blood Gas Notified Whom TM Blood Gas Notified Time 09/10/2018 8:13:17 AM Exam/Review of Systems Exam Vitals Vital Signs Date Temp Pulse Resp B/P (MAP) Pulse Ox O2 O2 Flow FiO2 Time Delivery Rate 09/10/18 91 12:00 09/10/18 21 150/84 98 Nasal 12:00 (106) Cannula 09/10/18 2.0 08:32 09/10/18 98.0 08:00 09/09/18 35 13:01 Intake and Output 09/09/18 09/09/18 09/10/18 1515:00 23:00 07:00 IntakeIntake Total 452.500 ml 650 ml 250 ml OutputOutput Total 700 ml 2470 ml 1430 ml BalanceBalance -247.500 ml -1820 ml -1180 ml Constitutional: alert, oriented Neck: supple Respiratory: diminished breath sounds, wheezing Cardiovascular: regular rate and rhythm Gastrointestinal: soft, non-tender Musculoskeletal: nl extremities to inspection Extremities: normal pulses Neurological: nl mental status Results Results 24hrs Laboratory Tests Test 09/10/18 04:00 09/10/18 07:00 White Blood Count 3.7 #L Red Blood Count 3.48 L Hemoglobin 9.7 L Hematocrit 31.6 L Mean Corpuscular Volume 90.8 Mean Corpuscular Hemoglobin 27.9 L Mean Corpuscular Hemoglobin Concent 30.7 L Red Cell Distribution Width 16.5 H Platelet Count 78 L Mean Platelet Volume 11.2 H Immature Granulocytes % 1.300 H Neutrophils % 85.0 H Lymphocytes % 10.2 L Monocytes % 3.5 Eosinophils % 0.0 Basophils % 0.0 Nucleated Red Blood Cells % 0.0 Immature Granulocytes # 0.050 H Neutrophils # 3.2 Lymphocytes # 0.4 L Monocytes # 0.1 L Eosinophils # 0.0 Basophils # 0.0 Nucleated Red Blood Cells # 0.0 Sodium Level 151 H Potassium Level 3.6 Chloride Level 113 H Carbon Dioxide Level 37 H Anion Gap 1 L Blood Urea Nitrogen 42 H Creatinine 0.77 Est Glomerular Filtrat Rate mL/min > 60 Glucose Level 130 Calcium Level 9.4 Phosphorus Level 2.6 Magnesium Level 2.5 Blood Gas Specimen Source Blood arterial Arterial Blood Date Drawn 09/10/2018 7:42:36 AM Arterial Blood pH (Temp corrected) 7.464 H Arterial Blood pCO2 (Temp correct) 38.8 Arterial Blood pO2 (Temp corrected) 71.3 L Arterial Blood HCO3 27.2 H Arterial Blood Base Excess 3.3 H Arterial Blood Oxygen Saturation 93.2 L Miller Test ACCEPTAB Arterial Blood Gas Puncture Site Right Radial Arterial Blood Carboxyhemoglobin 1.5 Arterial Blood Methemoglobin 0.3 Blood Gas A-a O2 Differential 97.0 H Oxyhemoglobin Percent 91.5 L Blood Gas Temperature 37.0 Blood Gas Modality NASAL CANNULA FiO2 30.0 Blood Gas Notified Whom TM Blood Gas Notified Time 09/10/2018 8:13:17 AM Medications Medication Current Medications Ondansetron HCl (Zofran Inj) 4 mg Q6H PRN IV NAUSEA AND/OR VOMITING Last administered on 09/06/18at 18:46; Admin Dose 4 MG; Start 08/26/18 at 23:30 Acetaminophen (Tylenol Supp) 650 mg Q4H PRN [place] PAIN LEVEL 1-3 OR FEVER; Start 08/26/18 at 23:30 Aspirin (Aspirin) 81 mg DAILY PO Last administered on 09/10/18at 08:58; Admin Dos e 81 MG; Start 08/29/18 at 09:00 Famotidine (Pepcid) 20 mg Q12 PO Last administered on 09/10/18at 08:58; Admin Dose 20 MG; Start 08/29/18 at 21:00 Zolpidem Tartrate (Ambien) 5 mg HS PRN PO INSOMNIA Last administered on 09/09/18 20:38; Admin Dose 5 MG; Start 09/01/18 at 00:00 Guaifenesin/ Dextromethorphan (Robitussin Dm Liquid Cup) 5 ml Q6H PRN PO COUGH Last administered on 09/05/18 09:04; Admin Dose 5 ML; Start 09/01/18 at 20:00 Divalproex Sodium (Depakote) 250 mg Q8H PO Last administered on 09/10/18 08:58; Admin Dose 250 MG; Start 09/02/18 at 17:00 Morphine Sulfate (morphine) 6 mg Q4H PRN PO SEVERE PAIN LEVEL 7-10 Last administered on 09/10/18 02:47; Admin Dose 6 MG; Start 09/04/18 at 21:30 Albuterol/ Ipratropium (Duoneb) 3 ml Q3H RESP THERAPY PRN HHN SHORTNESS OF BREATH; Start 09/05/18 at 20:00 Risperidone (Risperdal) 1 mg BID PO Last administered on 09/10/18 08:59; Admin Dose 1 MG; Start 09/06/18 at 21:00 Vancomycin HCl (Vanco Iv Per Pharmacy) VANCOMYCIN PER PHARMACY PER PROTOCOL XX ; Start 09/06/18 at 15:00 Meropenem/Sodium Chloride 50 ml @ 100 mls/hr Q12 IVPB Last administered on 09/10/18 08:57; Admin Dose 100 MLS/HR; Start 09/06/18 at 15:00 Methylprednisolone Sodium Succinate (Solu-Medrol) 40 mg Q6 IV Last administered on 09/10/18 11:55; Admin Dose 40 MG; Start 09/07/18 at 12:00 Propofol 100 ml @ 1.875 mls/ hr Q12H IV Last administered on 09/09/18 08:09; Admin Dose 15 MLS/HR; Start 09/07/18 at 11:00 Fentanyl 100 ml @ 2.5 mls/hr TITRATE IV Last administered on 09/09/18 09:17; Admin Dose 5 MLS/HR; Start 09/07/18 at 11:30 Norepinephrine 250 ml @ 1.875 mls/ hr TITRATE IV Last administered on 09/08/18at 02:08; Admin Dose 11.25 MLS/HR; Start 09/07/18 at 11:00 Alteplase, Recombinant (Cathflo (Activase)) 2 mg MAY REPEAT X1 PRN CATHETER IF CATHETER REMAINS OCCULUDED; Start 09/07/18 at 11:00 Amlodipine Besylate (Norvasc) 5 mg DAILY PO Last administered on 09/10/18at 0 8:58; Admin Dose 5 MG; Start 09/10/18 at 09:00 Albuterol/ Ipratropium (Duoneb) 3 ml Q6H RESP THERAPY HHN Last administered on 09/10/18at 08:32; Admin Dose 3 ML; Start 09/09/18 at 20:00 Dextrose 1,000 ml @ 50 mls/hr Q20H IV Last administered on 09/10/18at 07:00; Admin Dose 50 MLS/HR; Start 09/10/18 at 07:00 Vancomycin HCl 1.5 gm/Dextrose 250 ml @ 83.333 mls/ hr Q24H IVPB ; Start 09/11/18 at 06:00 HERMES HARRIS Sep 10, 2018 12:48
--- NOTE | 2018-09-10 14:05 | CONS ---
Assessment/Plan Assessment/Plan Hospital Course (Demo Recall) S/p extubated, alert, follows commands, looks comfortable, no fevers Antimicrobials: Vancomycin, meropenem Indwelling: Right IJ triple-lumen catheter, Sellers Physical examination: Well-developed chronically ill-appearing cachectic elderly man. Head atraumatic normocephalic sclera nonicteric, neck is supple chest rise symmetrical breath sounds diminished bases. Heart: S1-S2. Abdomen soft bowel sounds present. Extremities without edema/cyanosis Assessment: 1. Acute hypoxemic respiratory failure, s/p extubated 2. Pneumonia, possibly aspirated 4. Pneumoperitoneum of unclear etiology, no perforation per surgical note, status post chest tube 5. Dementia 5. Anemia 6. History of non-ST elevation LA 7. Status post cardiac arrest 8. RIJ TLC Plan:Stable post extubation, continue antibiotics, aspiration precautions, f/u cxr, pulmonary rec-s Consultation Date/Type/Reason Admit Date/Time Aug 27, 2018 at 00:03 Initial Consult Date 08/27/18 Type of Consult ID Requesting Provider: VIVIANA NOLAN MD Date/Time of Note DATE: 09/10/18 TIME: 14:03 Exam/Review of Systems Exam Vitals Vital Signs Date Temp Pulse Resp B/P (MAP) Pulse Ox O2 O2 Flow FiO2 Time Delivery Rate 09/10/18 100 22 142/82 99 13:00 (102) 09/10/18 Nasal 12:00 Cannula 09/10/18 2.0 08:32 09/10/18 98.0 08:00 09/09/18 35 13:01 Intake and Output 09/09/18 09/09/18 09/10/18 1515:00 23:00 07:00 IntakeIntake Total 452.500 ml 650 ml 250 ml OutputOutput Total 700 ml 2470 ml 1680 ml BalanceBalance -247.500 ml -1820 ml -1430 ml Results Result Diagram: 09/10/18 0400 09/10/18 0400 Results 24hrs Laboratory Tests Test 09/10/18 04:00 09/10/18 07:00 White Blood Count 3.7 #L Red Blood Count 3.48 L Hemoglobin 9.7 L Hematocrit 31.6 L Mean Corpuscular Volume 90.8 Mean Corpuscular Hemoglobin 27.9 L Mean Corpuscular Hemoglobin Concent 30.7 L Red Cell Distribution Width 16.5 H Platelet Count 78 L Mean Platelet Volume 11.2 H Immature Granulocytes % 1.300 H Neutrophils % 85.0 H Lymphocytes % 10.2 L Monocytes % 3.5 Eosinophils % 0.0 Basophils % 0.0 Nucleated Red Blood Cells % 0.0 Immature Granulocytes # 0.050 H Neutrophils # 3.2 Lymphocytes # 0.4 L Monocytes # 0.1 L Eosinophils # 0.0 Basophils # 0.0 Nucleated Red Blood Cells # 0.0 Sodium Level 151 H Potassium Level 3.6 Chloride Level 113 H Carbon Dioxide Level 37 H Anion Gap 1 L Blood Urea Nitrogen 42 H Creatinine 0.77 Est Glomerular Filtrat Rate mL/min > 60 Glucose Level 130 Calcium Level 9.4 Phosphorus Level 2.6 Magnesium Level 2.5 Blood Gas Specimen Source Blood arterial Arterial Blood Date Drawn 09/10/2018 7:42:36 AM Arterial Blood pH (Temp corrected) 7.464 H Arterial Blood pCO2 (Temp correct) 38.8 Arterial Blood pO2 (Temp corrected) 71.3 L Arterial Blood HCO3 27.2 H Arterial Blood Base Excess 3.3 H Arterial Blood Oxygen Saturation 93.2 L Miller Test ACCEPTAB Arterial Blood Gas Puncture Site Right Radial Arterial Blood Carboxyhemoglobin 1.5 Arterial Blood Methemoglobin 0.3 Blood Gas A-a O2 Differential 97.0 H Oxyhemoglobin Percent 91.5 L Blood Gas Temperature 37.0 Blood Gas Modality NASAL CANNULA FiO2 30.0 Blood Gas Notified Whom TM Blood Gas Notified Time 09/10/2018 8:13:17 AM Medications Medication Current Medications Ondansetron HCl (Zofran Inj) 4 mg Q6H PRN IV NAUSEA AND/OR VOMITING Last administered on 09/06/18at 18:46; Admin Dose 4 MG; Start 08/26/18 at 23:30 Acetaminophen (Tylenol Supp) 650 mg Q4H PRN [place] PAIN LEVEL 1-3 OR FEVER; Start 08/26/18 at 23:30 Aspirin (Aspirin) 81 mg DAILY PO Last administered on 09/10/18at 08:58; Admin Dose 81 MG; Start 08/29/18 at 09:00 Famotidine (Pepcid) 20 mg Q12 PO Last administered on 09/10/18at 08:58; Admin Dose 20 MG; Start 08/29/18 at 21:00 Zolpidem Tartrate (Ambien) 5 mg HS PRN PO INSOMNIA Last administered on 09/09/18 20:38; Admin Dose 5 MG; Start 09/01/18 at 00:00 Guaifenesin/ Dextromethorphan (Robitussin Dm Liquid Cup) 5 ml Q6H PRN PO COUGH Last administered on 09/05/18 09:04; Admin Dose 5 ML; Start 09/01/18 at 20:00 Divalproex Sodium (Depakote) 250 mg Q8H PO Last administered on 09/10/18 08:58; Admin Dose 250 MG; Start 09/02/18 at 17:00 Morphine Sulfate (morphine) 6 mg Q4H PRN PO SEVERE PAIN LEVEL 7-10 Last administered on 09/10/18 02:47; Admin Dose 6 MG; Start 09/04/18 at 21:30 Albuterol/ Ipratropium (Duoneb) 3 ml Q3H RESP THERAPY PRN HHN SHORTNESS OF BREATH; Start 09/05/18 at 20:00 Risperidone (Risperdal) 1 mg BID PO Last administered on 09/10/18 08:59; Admin Dose 1 MG; Start 09/06/18 at 21:00 Vancomycin HCl (Vanco Iv Per Pharmacy) VANCOMYCIN PER PHARMACY PER PROTOCOL XX ; Start 09/06/18 at 15:00 Meropenem/Sodium Chloride 50 ml @ 100 mls/hr Q12 IVPB Last administered on 09/10/18 08:57; Admin Dose 100 MLS/HR; Start 09/06/18 at 15:00 Methylprednisolone Sodium Succinate (Solu-Medrol) 40 mg Q6 IV Last administered on 09/10/18 11:55; Admin Dose 40 MG; Start 09/07/18 at 12:00 Propofol 100 ml @ 1.875 mls/ hr Q12H IV Last administered on 09/09/18 08:09; Admin Dose 15 MLS/HR; Start 09/07/18 at 11:00 Fentanyl 100 ml @ 2.5 mls/hr TITRATE IV Last administered on 09/09/18 09:17; Admin Dose 5 MLS/HR; Start 09/07/18 at 11:30 Norepinephrine 250 ml @ 1.875 mls/ hr TITRATE IV Last administered on 2/3/19at 02:08; Admin Dose 11.25 MLS/HR; Start 09/07/18 at 11:00 Alteplase, Recombinant (Cathflo (Activase)) 2 mg MAY REPEAT X1 PRN CATHETER IF CATHETER REMAINS OCCULUDED; Start 09/07/18 at 11:00 Amlodipine Besylate (Norvasc) 5 mg DAILY PO Last administered on 09/10/18at 08:58; Admin Dose 5 MG; Start 09/10/18 at 09:00 Albuterol/ Ipratropium (Duoneb) 3 ml Q6H RESP THERAPY HHN Last administered on 09/10/18at 08:32; Admin Dose 3 ML; Start 09/09/18 at 20:00 Dextrose 1,000 ml @ 50 mls/hr Q20H IV Last administered on 09/10/18at 07:00; Admin Dose 50 MLS/HR; Start 09/10/18 at 07:00 Vancomycin HCl 1.5 gm/Dextrose 250 ml @ 83.333 mls/ hr Q24H IVPB ; Start 09/11/18 at 06:00 AALIYAH MEZA FOR[employer] OPERATOR HELPER Sep 10, 2018 14:05
[2018-09-10] MEDS: ZOLPIDEM 5 MG TAB PO PRN (20:31)
[2018-09-11] VITALS (24 sets, daily range): BP systolic 108–149; BP diastolic 73–104; PULSE 76–108; RESP 16–35
[2018-09-11] MEDS: DIVALPROEX (EC) 250 MG TAB PO SCH ×3 (00:03→17:55)
[2018-09-11] MEDS: METHYLPREDNISOLONE 40 MG INJ IV SCH ×5 (00:03→23:59)
[2018-09-11] MEDS: ALBUTEROL/IPRATROPIUM (NEB) 3 ML AMP HHN SCH ×4 (02:08→19:57)
[2018-09-11] MEDS ORDERED: VANCOMYCIN HCL 1.5 GM in DEXTROSE 5% 250 ML IVPB SCH (06:00)
--- NOTE | 2018-09-11 08:01 | PN ---
DATE: 09/11/2018 SUBJECTIVE: The patient is currently stable, no acute events overnight. No hemoptysis, hematemesis or hematochezia. The patient remains on high flow oxygen. OBJECTIVE: VITAL SIGNS: Blood pressure is 127/79, respirations 22, pulse 84, temperature 97.8. HEENT: Head is normocephalic. NECK: Supple. HEART: Regular rate. LUNGS: Show diminished breath sounds at the base. ABDOMEN: Soft, nontender to palpation. No rebound or guarding. EXTREMITIES: Negative for clubbing, cyanosis. Trace edema. DERMATOLOGIC: No rashes. MUSCULOSKELETAL: No joint effusion. NEUROLOGIC: No change in exam. MEDICATIONS: Reviewed. LABORATORY DATA: Including ABG shows pH 7.46, pCO2 of 38, base excess of 3.3. Sodium 145, BUN 35, c hloride 105, bicarbonate 36. White count 2.9, hemoglobin 9.6, platelet count 69. IMAGING STUDIES: Reviewed, shows right pleural effusion, right lower infiltrate, no change. ASSESSMENT AND PLAN: 1. Nonoliguric acute kidney injury with unknown baseline creatinine. Etiology is secondary to hemod ynamics. Renal function is improved. Continue current treatment plans, supportive care, renally dos e all medicines. 2. Hypernatremia, improved. Continue to encourage free water intake. The patient is status post D5 water. 3. Anemia. Monitor hemoglobin and hematocrit levels. 4. Mineral bone disorder, monitor calcium and phosphorus levels. 5. Mixed acid base disorder. The patient has a respiratory alkalosis and metabolic alkalosis. We w ill continue to monitor. May consider intermittent Diamox. 6. History of diastolic heart failure. Continue to monitor I's and O's closely. Give intermittent diuretics as needed. 7. Status post shock, likely septic from possible pneumonia. The patient is status post pressors. Continue antibiotic therapy. 8. Status post cardiac arrest. 9. Status post pneumothorax. 10. Acute encephalopathy. Dictated By: JOE BLACK DO NR/NTS Conf#: [id number] DID#: [id number] CC: VIVIANA NOLAN MD; WEI SHAH NP; WENDY LOVE MD;*EndCC*
[2018-09-11] MEDS: FAMOTIDINE 20 MG TAB PO SCH ×2 (09:09→20:51)
[2018-09-11] MEDS: MEROPENEM 1 GM/50ML(PMX) 50 ML IVPB SCH ×2 (09:09→20:51)
[2018-09-11] MEDS: ASPIRIN 81 MG TAB PO SCH (09:09)
[2018-09-11] MEDS: RISPERIDONE 1 MG TAB PO SCH ×2 (09:09→20:51)
[2018-09-11] MEDS: AMLODIPINE 5 MG TAB PO SCH (09:09)
[2018-09-11] MEDS: BALSAM PERU/CASTOR OIL 60 GM TUBE TOP SCH (09:10)
--- NOTE | 2018-09-11 09:44 | CONS ---
Consult Date/Type/Reason Admit Date/Time Aug 27, 2018 at 00:03 Initial Consult Date 08/27/18 Type of Consult Pulmonary Requesting Provider: VIVIANA NOLAN MD Date/Time of Note DATE: 09/11/18 TIME: 09:42 Subjective Patient awake alert oriented this morning no respiratory distress. Currently hemodynamically stable. Objective Vital Signs Date Temp Pulse Resp B/P (MAP) Pulse Ox O2 O2 Flow FiO2 Time Delivery Rate 09/11/18 71 22 100 Nasal 2.0 08:23 Cannula 09/11/18 127/79 06:00 (95) 09/11/18 97.8 04:00 09/09/18 35 13:01 Intake and Output 09/10/18 09/10/18 09/11/18 1515:00 23:00 07:00 IntakeIntake Total 2150 ml 220 ml 780 ml OutputOutput Total 1900 ml 1555 ml 1700 ml BalanceBalance 250 ml -1335 ml -920 ml Exam GENERAL: Elderly gentleman comfortable at rest no acute distress VITAL SIGNS: per chart NECK: Supple. No JVD or lymphadenopathy. CARDIAC EXAM: S1, S2. No added sounds or murmurs. CHEST: clear bilaterally, No added sounds, rales or wheezes ABDOMEN: Soft, nontender. No guarding or rebound. EXTREMITIES: No cyanosis, clubbing or edema. NEUROLOGIC: Generalized weakness. No focal deficits. Vent Setting Ventilator Support Mode: SPONT Fraction of Inspired Oxygen pe: 35 Positive End Expiratory Pressu: 5.0 Results/Medications Result Diagram: 09/11/18 0400 09/11/18 0400 Results 24 hrs Laboratory Tests Test 09/11/18 04:00 White Blood Count 2.9 #L Red Blood Count 3.44 L Hemoglobin 9.6 L Hematocrit 30.7 L Mean Corpuscular Volume 89.2 Mean Corpuscular Hemoglobin 27.9 L Mean Corpuscular Hemoglobin Concent 31.3 L Red Cell Distribution Width 16.0 H Platelet Count 69 L Mean Platelet Volume 10.6 H Immature Granulocytes % 0.700 H Neutrophils % 82.2 H Lymphocytes % 13.7 L Monocytes % 3.4 Eosinophils % 0.0 Basophils % 0.0 Nucleated Red Blood Cells % 0.0 Immature Granulocytes # 0.020 Neutrophils # 2.4 Lymphocytes # 0.4 L Monocytes # 0.1 L Eosinophils # 0.0 Basophils # 0.0 Nucleated Red Blood Cells # 0.0 Sodium Level 145 H Potassium Level 4.1 Chloride Level 108 Carbon Dioxide Level 36 H Anion Gap 1 L Blood Urea Nitrogen 35 H Creatinine 0.72 Est Glomerular Filtrat Rate mL/min > 60 Glucose Level 141 Calcium Level 9.3 Phosphorus Level 2.5 Magnesium Level 2.4 Medications Current Medications Ondansetron HCl (Zofran Inj) 4 mg Q6H PRN IV NAUSEA AND/OR VOMITING Last administered on 09/06/18 18:46; Admin Dose 4 MG; Start 08/26/18 at 23:30 Acetaminophen (Tylenol Supp) 650 mg Q4H PRN [place] PAIN LEVEL 1-3 OR FEVER; Start 08/26/18 at 23:30 Aspirin (Aspirin) 81 mg DAILY PO Last administered on 09/11/18 09:09; Admin Dose 81 MG; Start 08/29/18 at 09:00 Famotidine (Pepcid) 20 mg Q12 PO Last administered on 09/11/18 09:09; Admin Dose 20 MG; Start 08/29/18 at 21:00 Zolpidem Tartrate (Ambien) 5 mg HS PRN PO INSOMNIA Last administered on 09/10/18 20:31; Admin Dose 5 MG; Start 09/01/18 at 00:00 Guaifenesin/ Dextromethorphan (Robitussin Dm Liquid Cup) 5 ml Q6H PRN PO COUGH Last administered on 09/05/18 09:04; Admin Dose 5 ML; Start 09/01/18 at 20:00 Divalproex Sodium (Depakote) 250 mg Q8H PO Last administered on 09/11/18 09:09; Admin Dose 250 MG; Start 09/02/18 at 17:00 Morphine Sulfate (morphine) 6 mg Q4H PRN PO SEVERE PAIN LEVEL 7-10 Last administered on 09/10/18 02:47; Admin Dose 6 MG; Start 09/04/18 at 21:30 Albuterol/ Ipratropium (Duoneb) 3 ml Q3H RESP THERAPY PRN HHN SHORTNESS OF BREATH; Start 09/05/18 at 20:00 Risperidone (Risperdal) 1 mg BID PO Last administered on 09/11/18 09:09; Admin Dose 1 MG; Start 09/06/18 at 21:00 Vancomycin HCl (Vanco Iv Per Pharmacy) VANCOMYCIN PER PHARMACY PER PROTOCOL XX ; Start 09/06/18 at 15:00 Meropenem/Sodium Chloride 50 ml @ 100 mls/hr Q12 IVPB Last administered on 09/11/18 09:09; Admin Dose 100 MLS/HR; Start 09/06/18 at 15:00 Methylprednisolone Sodium Succinate (Solu-Medrol) 40 mg Q6 IV Last administered on 09/11/18 06:22; Admin Dose 40 MG; Start 09/07/18 at 12:00 Propofol 100 ml @ 1.875 mls/ hr Q12H IV Last administered on 09/09/18 08:09; Admin Dose 15 MLS/HR; Start 09/07/18 at 11:00 Fentanyl 100 ml @ 2.5 mls/hr TITRATE IV Last administered on 09/09/18 09:17; Admin Dose 5 MLS/HR; Start 09/07/18 at 11:30 Norepinephrine 250 ml @ 1.875 mls/ hr TITRATE IV Last administered on 09/08/18 02:08; Admin Dose 11.25 MLS/HR; Start 09/07/18 at 11:00 Alteplase, Recombinant (Cathflo (Activase)) 2 mg MAY REPEAT X1 PRN CATHETER IF CATHETER REMAINS OCCULUDED; Start 09/07/18 at 11:00 Amlodipine Besylate (Norvasc) 5 mg DAILY PO Last administered on 09/11/18 09 :09; Admin Dose 5 MG; Start 09/10/18 at 09:00 Albuterol/ Ipratropium (Duoneb) 3 ml Q6H RESP THERAPY HHN Last administered on 09/11/18 08:23; Admin Dose 3 ML; Start 09/09/18 at 20:00 Vancomycin HCl 1.5 gm/Dextrose 250 ml @ 83.333 mls/ hr Q24H IVPB Last administered on 09/11/18 06:22; Admin Dose 83.333 MLS/HR; Start 09/11/18 at 06:00 Assessment/Plan Hospital Course (Demo Recall) Assessment 1. Hypoxic respiratory failure on mechanical ventilation, safely extubated on nasal cannula O2 2. Pneumoperitoneum status post chest tube which patient pulled out 3. Encephalopathy toxic metabolic resolving 4. Advanced COPD 5. Hypernatremia likely free water deficit 6. Thrombocytopenia Plan 1. Speech therapy recommendations and aspiration precautions 2. Physical therapy as tolerated Critical care time 40 minutes Stable for transfer to telemetry KHUSHI PATTON MD, [facility] Sep 11, 2018 09:44
--- NOTE | 2018-09-11 10:02 | CONS ---
Assessment/Plan Assessment/Plan Hospital Course (Demo Recall) IMP: 1.Hypotension-borderline norbasc held today. NL EF by echo this admit 2.resp failure s/p extubation 3.cardiac arrest 4.pneumoperitoneum-resolved 5.Positive troponin-now trended neg 6.renal failure-improved 7.Leukocytosis 8. anemia 9, Thrombocytopenia-ongoing some worsening 10.Resp failure-hypercapneic s/p intubation. s/p extubation 11.PNA-by cxr Recc: -IN ICU -Continue norvasc and follow BP clsoely -Continue asa -continue steroids/bronchodilators -Continue abx's and f/u cx data -Continue risperdal -follow MS closely -Follow volume status clsoely Consultation Date/Type/Reason Admit Date/Time Aug 27, 2018 at 00:03 Initial Consult Date 08/27/18 Type of Consult Cardiology Reason for Consultation HTN Requesting Provider: VIVIANA NOLAN MD Date/Time of Note DATE: 09/11/18 TIME: 09:57 Exam/Review of Systems Vital Signs Vitals Vital Signs Date Temp Pulse Resp B/P (MAP) Pulse Ox O2 O2 Flow FiO2 Time Delivery Rate 09/11/18 71 22 100 Nasal 2.0 08:23 Cannula 09/11/18 127/79 06:00 (95) 09/11/18 97.8 04:00 09/09/18 35 13:01 Intake and Output 09/10/18 09/10/18 09/11/18 1515:00 23:00 07:00 IntakeIntake Total 2150 ml 220 ml 780 ml OutputOutput Total 1900 ml 1555 ml 1700 ml BalanceBalance 250 ml -1335 ml -920 ml Exam Exam Review of Systems: CONSTITUTIONAL: No fevers, chills. PULMONARY: No sob CARDIOVASCULAR: No chest pain/palpitations GASTROINTESTINAL: No nausea/vomiting. GENITOURINARY: No hematuria/dysuria. MUSCULOSKELETAL: No myagias/arthalgias. PSYCHIATRIC: The patient denies depression. NEUROLOGIC: No weakness Constitutional: alert Psych: no complaints Head: normocephalic ENMT: mucosa pink and moist Neck: supple, jvd (9cm water) Respiratory: diminished breath sounds Cardiovascular: regular rate and rhythm Gastrointestinal: soft, non-tender Musculoskeletal: muscle tone (normal) Extremities: edema (none) Neurological: other (No focal deficits) Labs Result Diagram: 09/11/18 0400 09/11/18 0400 Results 24hrs Laboratory Tests Test 09/11/18 04:00 White Blood Count 2.9 #L Red Blood Count 3.44 L Hemoglobin 9.6 L Hematocrit 30.7 L Mean Corpuscular Volume 89.2 Mean Corpuscular Hemoglobin 27.9 L Mean Corpuscular Hemoglobin Concent 31.3 L Red Cell Distribution Width 16.0 H Platelet Count 69 L Mean Platelet Volume 10.6 H Immature Granulocytes % 0.700 H Neutrophils % 82.2 H Lymphocytes % 13.7 L Monocytes % 3.4 Eosinophils % 0.0 Basophils % 0.0 Nucleated Red Blood Cells % 0.0 Immature Granulocytes # 0.020 Neutrophils # 2.4 Lymphocytes # 0.4 L Monocytes # 0.1 L Eosinophils # 0.0 Basophils # 0.0 Nucleated Red Blood Cells # 0.0 Sodium Level 145 H Potassium Level 4.1 Chloride Level 108 Carbon Dioxide Level 36 H Anion Gap 1 L Blood Urea Nitrogen 35 H Creatinine 0.72 Est Glomerular Filtrat Rate mL/min > 60 Glucose Level 141 Calcium Level 9.3 Phosphorus Level 2.5 Magnesium Level 2.4 Medications Medications Current Medications Ondansetron HCl (Zofran Inj) 4 mg Q6H PRN IV NAUSEA AND/OR VOMITING Last administered on 09/06/18 18:46; Admin Dose 4 MG; Start 08/26/18 at 23:30 Acetaminophen (Tylenol Supp) 650 mg Q4H PRN [place] PAIN LEVEL 1-3 OR FEVER; Start 08/26/18 at 23:30 Aspirin (Aspirin) 81 mg DAILY PO Last administered on 09/11/18 09:09; Admin Dose 81 MG; Start 08/29/18 at 09:00 Famotidine (Pepcid) 20 mg Q12 PO Last administered on 09/11/18 09:09; Admin Dose 20 MG; Start 08/29/18 at 21:00 Zolpidem Tartrate (Ambien) 5 mg HS PRN PO INSOMNIA Last administered on 09/10/18 20:31; Admin Dose 5 MG; Start 09/01/18 at 00:00 Guaifenesin/ Dextromethorphan (Robitussin Dm Liquid Cup) 5 ml Q6H PRN PO COUGH Last administered on 09/05/18 09:04; Admin Dose 5 ML; Start 09/01/18 at 20:00 Divalproex Sodium (Depakote) 250 mg Q8H PO Last administered on 09/11/18 09:09; Admin Dose 250 MG; Start 09/02/18 at 17:00 Morphine Sulfate (morphine) 6 mg Q4H PRN PO SEVERE PAIN LEVEL 7-10 Last admini stered on 09/10/18 02:47; Admin Dose 6 MG; Start 09/04/18 at 21:30 Albuterol/ Ipratropium (Duoneb) 3 ml Q3H RESP THERAPY PRN HHN SHORTNESS OF BREATH; Start 09/05/18 at 20:00 Risperidone (Risperdal) 1 mg BID PO Last administered on 09/11/18 09:09; Admin Dose 1 MG; Start 09/06/18 at 21:00 Vancomycin HCl (Vanco Iv Per Pharmacy) VANCOMYCIN PER PHARMACY PER PROTOCOL XX ; Start 09/06/18 at 15:00 Meropenem/Sodium Chloride 50 ml @ 100 mls/hr Q12 IVPB Last administered on 09/11/18 09:09; Admin Dose 100 MLS/HR; Start 09/06/18 at 15:00 Methylprednisolone Sodium Succinate (Solu-Medrol) 40 mg Q6 IV Last administered on 09/11/18 06:22; Admin Dose 40 MG; Start 09/07/18 at 12:00 Propofol 100 ml @ 1.875 mls/ hr Q12H IV Last administered on 09/09/18 08:09; Admin Dose 15 MLS/HR; Start 09/07/18 at 11:00 Fentanyl 100 ml @ 2.5 mls/hr TITRATE IV Last administered on 09/09/18 09:17; Admin Dose 5 MLS/HR; Start 09/07/18 at 11:30 Norepinephrine 250 ml @ 1.875 mls/ hr TITRATE IV Last administered on 09/08/18 02:08; Admin Dose 11.25 MLS/HR; Start 09/07/18 at 11:00 Alteplase, Recombinant (Cathflo (Activase)) 2 mg MAY REPEAT X1 PRN CATHETER IF CATHETER REMAINS OCCULUDED; Start 09/07/18 at 11:00 Amlodipine Besylate (Norvasc) 5 mg DAILY PO Last administered on 09/11/18at 09:09; Admin Dose 5 MG; Start 09/10/18 at 09:00 Albuterol/ Ipratropium (Duoneb) 3 ml Q6H RESP THERAPY HHN Last administered on 09/11/18at 08:23; Admin Dose 3 ML; Start 09/09/18 at 20:00 Vancomycin HCl 1.5 gm/Dextrose 250 ml @ 83.333 mls/ hr Q24H IVPB Last administered on 09/11/18at 06:22; Admin Dose 83.333 MLS/HR; Start 09/11/18 at 06:00 MITCHEL DESOUZA Sep 11, 2018 10:02
[2018-09-11] MEDS: PROPOFOL 100 ML IV SCH ×2 (10:21→23:00)
--- NOTE | 2018-09-11 13:19 | PN ---
Date/Time of Note Date/Time of Note DATE: 09/11/18 TIME: 13:13 Assessment/Plan VTE Prophylaxis Risk score (from [facility])>0 risk: 13 SCD applied (from [facility]): Yes Pharmacological prophylaxis: NA/contraindicated Pharm contraindication: thrombocytopenia Lines/Catheters IV C[facility]ter Type (from [email or web address] Central Line Central line still needed: Yes Urinary Cath still in place: Yes Reason Cath still needed: urinary retention Assessment/Plan Hospital Course Patient is awake alert, continues on supplemental oxygen, desaturates easily when off oxygen. Pt sitting in bed eating lunch, continue to monitor on telemetry floor. Assessment/Plan -Hypoxic respiratory failure requiring mechanical ventilation, extubated. Dr. Mejias is following in pulmonology consultation. -Sepsis with shock, resolving. Dr. Sutton is following in infection disease consultation. -Status post cardiac arrest. Dr. Hernández is following in cardiology consultation. -Left-sided pneumothorax, status post left side chest tube placement, s/p self d/c CT. -S/p pneumoperitoneum most likely due to cardiac arrest, resolved. Dr. Rivas is following in general surgery consultation. -Left axillary and brachial DVT, LUE swelling subsided, was on Lovenox which is currently held due to thrombocytopenia -Left lower lobe pneumonia -Severe emphysema -JEREMÍAS with possible chronic kidney disease. Dr Arvizu is following in nephrology consultation. -Schizoaffective disorder depressed type. Psychiatric consult is appreciated, continue Risperdal Depakote Critical care time spent more than 30 minutes. Further recommendations based on clinical course. Plan of care discussed with Dr. Juarez. Result Diagram: 09/11/18 0400 09/11/18 0400 Results 24hrs Laboratory Tests Test 09/11/18 04:00 White Blood Count 2.9 #L Red Blood Count 3.44 L Hemoglobin 9.6 L Hematocrit 30.7 L Mean Corpuscular Volume 89.2 Mean Corpuscular Hemoglobin 27.9 L Mean Corpuscular Hemoglobin Concent 31.3 L Red Cell Distribution Width 16.0 H Platelet Count 69 L Mean Platelet Volume 10.6 H Immature Granulocytes % 0.700 H Neutrophils % 82.2 H Lymphocytes % 13.7 L Monocytes % 3.4 Eosinophils % 0.0 Basophils % 0.0 Nucleated Red Blood Cells % 0.0 Immature Granulocytes # 0.020 Neutrophils # 2.4 Lymphocytes # 0.4 L Monocytes # 0.1 L Eosinophils # 0.0 Basophils # 0.0 Nucleated Red Blood Cells # 0.0 Sodium Level 145 H Potassium Level 4.1 Chloride Level 108 Carbon Dioxide Level 36 H Anion Gap 1 L Blood Urea Nitrogen 35 H Creatinine 0.72 Est Glomerular Filtrat Rate mL/min > 60 Glucose Level 141 Calcium Level 9.3 Phosphorus Level 2.5 Magnesium Level 2.4 Exam/Review of Systems Exam Vitals Vital Signs Date Temp Pulse Resp B/P (MAP) Pulse Ox O2 O2 Flow FiO2 Time Delivery Rate 09/11/18 90 12:00 09/11/18 20 129/88 93 Nasal 4.0 11:00 (102) Cannula 09/11/18 97.4 08:00 09/09/18 35 13:01 Intake and Output 09/10/18 09/10/18 09/11/18 1515:00 23:00 07:00 IntakeIntake Total 2150 ml 220 ml 780 ml OutputOutput Total 1900 ml 1555 ml 1700 ml BalanceBalance 250 ml -1335 ml -920 ml Exam Constitutional: alert, oriented Respiratory: diminished breath sounds, wheezing Cardiovascular: regular rate and rhythm Gastrointestinal: soft, non-tender Musculoskeletal: nl extremities to inspection Extremities: normal pulses Neurological: nl mental status Results Results 24hrs Laboratory Tests Test 09/11/18 04:00 White Blood Count 2.9 #L Red Blood Count 3.44 L Hemoglobin 9.6 L Hematocrit 30.7 L Mean Corpuscular Volume 89.2 Mean Corpuscular Hemoglobin 27.9 L Mean Corpuscular Hemoglobin Concent 31.3 L Red Cell Distribution Width 16.0 H Platelet Count 69 L Mean Platelet Volume 10.6 H Immature Granulocytes % 0.700 H Neutrophils % 82.2 H Lymphocytes % 13.7 L Monocytes % 3.4 Eosinophils % 0.0 Basophils % 0.0 Nucleated Red Blood Cells % 0.0 Immature Granulocytes # 0.020 Neutrophils # 2.4 Lymphocytes # 0.4 L Monocytes # 0.1 L Eosinophils # 0.0 Basophils # 0.0 Nucleated Red Blood Cells # 0.0 Sodium Level 145 H Potassium Level 4.1 Chloride Level 108 Carbon Dioxide Level 36 H Anion Gap 1 L Blood Urea Nitrogen 35 H Creatinine 0.72 Est Glomerular Filtrat Rate mL/min > 60 Glucose Level 141 Calcium Level 9.3 Phosphorus Level 2.5 Magnesium Level 2.4 Medications Medication Current Medications Ondansetron HCl (Zofran Inj) 4 mg Q6H PRN IV NAUSEA AND/OR VOMITING Last administered on 09/06/18 18:46; Admin Dose 4 MG; Start 08/26/18 at 23:30 Acetaminophen (Tylenol Supp) 650 mg Q4H PRN [place] PAIN LEVEL 1-3 OR FEVER; Start 08/26/18 at 23:30 Aspirin (Aspirin) 81 mg DAILY PO Last administered on 09/11/18 09:09; Admin Dose 81 MG; Start 08/29/18 at 09:00 Famotidine (Pepcid) 20 mg Q12 PO Last administered on 09/11/18 09:09; Admin Dose 20 MG; Start 08/29/18 at 21:00 Zolpidem Tartrate (Ambien) 5 mg HS PRN PO INSOMNIA Last administered on 09/10/18 20:31; Admin Dose 5 MG; Start 09/01/18 at 00:00 Guaifenesin/ Dextromethorphan (Robitussin Dm Liquid Cup) 5 ml Q6H PRN PO COUGH Last administered on 09/05/18 09:04; Admin Dose 5 ML; Start 09/01/18 at 20:00 Divalproex Sodium (Depakote) 250 mg Q8H PO Last administered on 09/11/18 09:09; Admin Dose 250 MG; Start 09/02/18 at 17:00 Morphine Sulfate (morphine) 6 mg Q4H PRN PO SEVERE PAIN LEVEL 7-10 Last administered on 09/10/18 02:47; Admin Dose 6 MG; Start 09/04/18 at 21:30 Albuterol/ Ipratropium (Duoneb) 3 ml Q3H RESP THERAPY PRN HHN SHORTNESS OF BREATH; Start 09/05/18 at 20:00 Risperidone (Risperdal) 1 mg BID PO Last administered on 09/11/18 09:09; Admin Dose 1 MG; Start 09/06/18 at 21:00 Vancomycin HCl (Vanco Iv Per Pharmacy) VANCOMYCIN PER PHARMACY PER PROTOCOL XX ; Start 09/06/18 at 15:00 Meropenem/Sodium Chloride 50 ml @ 100 mls/hr Q12 IVPB Last administered on 09/11/18 09:09; Admin Dose 100 MLS/HR; Start 09/06/18 at 15:00 Methylprednisolone Sodium Succinate (Solu-Medrol) 40 mg Q6 IV Last administered on 09/11/18 12:23; Admin Dose 40 MG; Start 09/07/18 at 12:00 Propofol 100 ml @ 1.875 mls/ hr Q12H IV Last administered on 09/09/18 08:09; Admin Dose 15 MLS/HR; Start 09/07/18 at 11:00 Fentanyl 100 ml @ 2.5 mls/hr TITRATE IV Last administered on 09/09/18 09:17; Admin Dose 5 MLS/HR; Start 09/07/18 at 11:30 Norepinephrine 250 ml @ 1.875 mls/ hr TITRATE IV Last administered on 09/08/18 02:08; Admin Dose 11.25 MLS/HR; Start 09/07/18 at 11:00 Alteplase, Recombinant (Cathflo (Activase)) 2 mg MAY REPEAT X1 PRN CATHETER IF CATHETER REMAINS OCCULUDED; Start 09/07/18 at 11:00 Amlodipine Besylate (Norvasc) 5 mg DAILY PO Last administered on 09/11/18 09:09; Admin Dose 5 MG; Start 09/10/18 at 09:00 Albuterol/ Ipratropium (Duoneb) 3 ml Q6H RESP THERAPY HHN Last administered on 09/11/18 08:23; Admin Dose 3 ML; Start 09/09/18 at 20:00 Vancomycin HCl 1.5 gm/Dextrose 250 ml @ 83.333 mls/ hr Q24H IVPB Last administered on 09/11/18 06:22; Admin Dose 83.333 MLS/HR; Start 09/11/18 at 06:00 Miscellaneous Information (*Rx Drug Level Order Reminder*) VANCO TROUGH 09/12 @ 0,500 ONCE ONCE XX ; Start 09/12/18 at 05:00; Stop 09/12/18 at 05:01 HERMES HARRIS Sep 11, 2018 13:18
--- NOTE | 2018-09-11 14:41 | CONS ---
Assessment/Plan Assessment/Plan Hospital Course (Demo Recall) Patient is alert looks comfortable tolerates pured diet no fevers overnight WBC 2.9 platelets 69 neutrophils 82.2 BUN 35 creatinine 0.72 Antimicrobials: Vancomycin, meropenem Indwelling: Right IJ triple-lumen catheter, Sellers Physical examination: Well-developed chronically ill-appearing cachectic elderly man. Head atraumatic normocephalic sclera nonicteric, neck is supple chest rise symmetrical breath sounds diminished bases. Heart: S1-S2. Abdomen soft bowel sounds present. Extremities without edema/cyanosis Assessment: 1. Acute hypoxemic respiratory failure, s/p extubated 2. Pneumonia, possibly aspirated 4. Pneumoperitoneum of unclear etiology, no perforation per surgical note, status post chest tube 5. Dementia 5. Anemia with progressive thrombocytopenia 6. History of non-ST elevation [place] 7. Status post cardiac arrest 8. RIJ TLC Plan: Remains stable, DC vancomycin, continue aspiration precautions, repeat chest x-ray, pulmonary rec-s Consultation Date/Type/Reason Admit Date/Time Aug 27, 2018 at 00:03 Initial Consult Date 08/27/18 Type of Consult ID Requesting Provider: VIVIANA NOLAN MD Date/Time of Note DATE: 09/11/18 TIME: 14:39 Exam/Review of Systems Exam Vitals Vital Signs Date Temp Pulse Resp B/P (MAP) Pulse Ox O2 O2 Flow FiO2 Time Delivery Rate 09/11/18 90 28 100 Nasal 2.0 13:30 Cannula 09/11/18 129/88 11:00 (102) 09/11/18 97.4 08:00 09/09/18 35 13:01 Intake and Output 09/10/18 09/10/18 09/11/18 1515:00 23:00 07:00 IntakeIntake Total 2150 ml 220 ml 780 ml OutputOutput Total 1900 ml 1555 ml 1700 ml BalanceBalance 250 ml -1335 ml -920 ml Results Result Diagram: 09/11/18 0400 09/11/18 0400 Results 24hrs Laboratory Tests Test 09/11/18 04:00 White Blood Count 2.9 #L Red Blood Count 3.44 L Hemoglobin 9.6 L Hematocrit 30.7 L Mean Corpuscular Volume 89.2 Mean Corpuscular Hemoglobin 27.9 L Mean Corpuscular Hemoglobin Concent 31.3 L Red Cell Distribution Width 16.0 H Platelet Count 69 L Mean Platelet Volume 10.6 H Immature Granulocytes % 0.700 H Neutrophils % 82.2 H Lymphocytes % 13.7 L Monocytes % 3.4 Eosinophils % 0.0 Basophils % 0.0 Nucleated Red Blood Cells % 0.0 Immature Granulocytes # 0.020 Neutrophils # 2.4 Lymphocytes # 0.4 L Monocytes # 0.1 L Eosinophils # 0.0 Basophils # 0.0 Nucleated Red Blood Cells # 0.0 Sodium Level 145 H Potassium Level 4.1 Chloride Level 108 Carbon Dioxide Level 36 H Anion Gap 1 L Blood Urea Nitrogen 35 H Creatinine 0.72 Est Glomerular Filtrat Rate mL/min > 60 Glucose Level 141 Calcium Level 9.3 Phosphorus Level 2.5 Magnesium Level 2.4 Medications Medication Current Medications Ondansetron HCl (Zofran Inj) 4 mg Q6H PRN IV NAUSEA AND/OR VOMITING Last administered on 09/06/18 18:46; Admin Dose 4 MG; Start 08/26/18 at 23:30 Acetaminophen (Tylenol Supp) 650 mg Q4H PRN [place] PAIN LEVEL 1-3 OR FEVER; Start 08/26/18 at 23:30 Aspirin (Aspirin) 81 mg DAILY PO Last administered on 09/11/18 09:09; Admin Dose 81 MG; Start 08/29/18 at 09:00 Famotidine (Pepcid) 20 mg Q12 PO Last administered on 09/11/18 09:09; Admin Dose 20 MG; Start 08/29/18 at 21:00 Zolpidem Tartrate (Ambien) 5 mg HS PRN PO INSOMNIA Last administered on 20:31; Admin Dose 5 MG; Start 09/01/18 at 00:00 Guaifenesin/ Dextromethorphan (Robitussin Dm Liquid Cup) 5 ml Q6H PRN PO COUGH Last administered on 09/05/18 09:04; Admin Dose 5 ML; Start 09/01/18 at 20:00 Divalproex Sodium (Depakote) 250 mg Q8H PO Last administered on 09/11/18 09:09; Admin Dose 250 MG; Start 09/02/18 at 17:00 Morphine Sulfate (morphine) 6 mg Q4H PRN PO SEVERE PAIN LEVEL 7-10 Last administered on 09/10/18 02:47; Admin Dose 6 MG; Start 09/04/18 at 21:30 Albuterol/ Ipratropium (Duoneb) 3 ml Q3H RESP THERAPY PRN HHN SHORTNESS OF BREATH; Start 09/05/18 at 20:00 Risperidone (Risperdal) 1 mg BID PO Last administered on 09/11/18 09:09; Admin Dose 1 MG; Start 09/06/18 at 21:00 Vancomycin HCl (Vanco Iv Per Pharmacy) VANCOMYCIN PER PHARMACY PER PROTOCOL XX ; Start 09/06/18 at 15:00 Meropenem/Sodium Chloride 50 ml @ 100 mls/hr Q12 IVPB Last administered on 09/11/18 09:09; Admin Dose 100 MLS/HR; Start 09/06/18 at 15:00 Methylprednisolone Sodium Succinate (Solu-Medrol) 40 mg Q6 IV Last administered on 09/11/18 12:23; Admin Dose 40 MG; Start 09/07/18 at 12:00 Propofol 100 ml @ 1.875 mls/ hr Q12H IV Last administered on 09/09/18 08:09; Admin Dose 15 MLS/HR; Start 09/07/18 at 11:00 Fentanyl 100 ml @ 2.5 mls/hr TITRATE IV Last administered on 09/09/18 09:17; Admin Dose 5 MLS/HR; Start 09/07/18 at 11:30 Norepinephrine 250 ml @ 1.875 mls/ hr TITRATE IV Last administered on 09/08/18 02:08; Admin Dose 11.25 MLS/HR; Start 09/07/18 at 11:00 Alteplase, Recombinant (Cathflo (Activase)) 2 mg MAY REPEAT X1 PRN CATHETER IF CATHETER REMAINS OCCULUDED; Start 09/07/18 at 11:00 Amlodipine Besylate (Norvasc) 5 mg DAILY PO Last administered on 09/11/18 09:09; Admin Dose 5 MG; Start 09/10/18 at 09:00 Albuterol/ Ipratropium (Duoneb) 3 ml Q6H RESP THERAPY HHN Last administered on 09/11/18 13:30; Admin Dose 3 ML; Start 09/09/18 at 20:00 Vancomycin HCl 1.5 gm/Dextrose 250 ml @ 83.333 mls/ hr Q24H IVPB Last administered on 09/11/18at 06:22; Admin Dose 83.333 MLS/HR; Start 09/11/18 at 06:00 Miscellaneous Information (*Rx Drug Level Order Reminder*) VANCO TROUGH 09/12 @ 0,500 ONCE ONCE XX ; Start 09/12/18 at 05:00; Stop 09/12/18 at 05:01 AALIYAH MEZA NP Sep 11, 2018 14:41
[2018-09-12] VITALS (24 sets, daily range): BP systolic 98–170; BP diastolic 67–132; PULSE 77–120; RESP 17–35
[2018-09-12] MEDS: ALBUTEROL/IPRATROPIUM (NEB) 3 ML AMP HHN SCH ×4 (01:12→20:00)
[2018-09-12] MEDS: LORAZEPAM 2 MG INJ IV PRN ×2 (02:17→16:10)
[2018-09-12] MEDS: METHYLPREDNISOLONE 40 MG INJ IV SCH ×4 (05:00→23:48)
--- NOTE | 2018-09-12 07:52 | PN ---
DATE: 09/12/2018 SUBJECTIVE: The patient was agitated overnight, was given Ativan. The patient has been lethargic. No other events noted. No hemoptysis, hematemesis, or hematochezia. OBJECTIVE: VITAL SIGNS: Blood pressure is 132/78, respirations 24, pulse 79, temperature 97.9. HEENT: Head is normocephalic. NECK: Supple. HEART: Regular rate. LUNGS: Showed decreased breath sounds at the base. ABDOMEN: Soft, nontender to palpation without rebound or guarding. EXTREMITIES: Negative for clubbing, cyanosis. Trace edema. DERMATOLOGIC: No rashes. MUSCULOSKELETAL: No joint effusion. NEUROLOGIC: No change in exam. MEDICATIONS: Reviewed. LABORATORY DATA: Shows sodium 147, potassium 4.2, BUN 39, creatinine 0.80. White count 3.3, hemoglo bin 9.7, platelet count is 66. IMAGING: The patient's chest x-ray on 09/10/2018 was reviewed. ASSESSMENT AND PLAN: 1. Nonoliguric acute kidney injury with unknown baseline creatinine. Etiology is secondary to hemod ynamics. Renal function is improved. Continue current treatment plans, supportive care, renally dos e all medicines. 2. Hypernatremia. The patient has a free water deficit of approximately 1.5 liters. We will start the patient on D5 water at 50 mL an hour. Encourage free water intake. 3. Anemia. Continue to monitor hemoglobin and hematocrit levels. 4. Mineral bone disorder, monitor calcium and phosphorus levels. 5. Diastolic heart failure. The patient appears near euvolemic, monitor closely. Give intermittent diuretics as needed. 6. Status post shock secondary to pneumonia. The patient is completing antibiotic course. 7. Status post cardiac arrest. 8. Status post pneumothorax. 9. Acute encephalopathy, etiology is toxic metabolic. Continue to monitor. Dictated By: JOE BLACK DO NR/NTS Conf#: [id number] DID#: [id number] CC: WEI SHAH NP; VIVIANA NOLAN MD; WENDY LOVE MD;*EndCC*
[2018-09-12] MEDS: DEXTROSE 5% 1,000 ML IV SCH (08:05)
[2018-09-12] MEDS: DIVALPROEX (EC) 250 MG TAB PO SCH ×3 (09:17→17:00)
[2018-09-12] MEDS: RISPERIDONE 1 MG TAB PO SCH ×2 (09:17→20:15)
[2018-09-12] MEDS: AMLODIPINE 5 MG TAB PO SCH (09:17)
[2018-09-12] MEDS: MEROPENEM 1 GM/50ML(PMX) 50 ML IVPB SCH ×2 (09:17→20:21)
[2018-09-12] MEDS: FAMOTIDINE 20 MG TAB PO SCH ×2 (09:17→20:15)
[2018-09-12] MEDS: ASPIRIN 81 MG TAB PO SCH (09:17)
[2018-09-12] MEDS: BALSAM PERU/CASTOR OIL 60 GM TUBE TOP SCH (09:33)
[2018-09-12] MEDS: PROPOFOL 100 ML IV SCH ×2 (11:00→22:35)
--- NOTE | 2018-09-12 11:03 | CONS ---
Consult Date/Type/Reason Admit Date/Time Aug 27, 2018 at 00:03 Initial Consult Date 08/27/18 Type of Consult Pulmonary Requesting Provider: VIVIANA NOLAN MD Date/Time of Note DATE: 09/12/18 TIME: 11:02 Subjective Patient agitated overnight but this morning is awake alert comfortable no respiratory distress. No arrhythmias or hemodynamic instability. Chest x-ray shows ongoing right lower lobe effusion versus infiltrate. Objective Vital Signs Date Temp Pulse Resp B/P (MAP) Pulse Ox O2 O2 Flow FiO2 Time Delivery Rate 09/12/18 87 25 123/90 90 Nasal 4.0 09:00 (101) Cannula 09/12/18 35 08:21 09/12/18 97.3 08:00 Intake and Output 09/11/18 09/11/18 09/12/18 1515:00 23:00 07:00 IntakeIntake Total 950 ml 625 ml 0 ml OutputOutput Total 1770 ml 1430 ml 675 ml BalanceBalance -820 ml -805 ml -675 ml Exam GENERAL: Elderly gentleman comfortable at rest no acute distress VITAL SIGNS: per chart NECK: Supple. No JVD or lymphadenopathy. CARDIAC EXAM: S1, S2. No added sounds or murmurs. CHEST: clear bilaterally, No added sounds, rales or wheezes ABDOMEN: Soft, nontender. No guarding or rebound. EXTREMITIES: No cyanosis, clubbing or edema. NEUROLOGIC: Generalized weakness. No focal deficits. Vent Setting Ventilator Support Mode: SPONT Fraction of Inspired Oxygen pe: 35 Positive End Expiratory Pressu: 5.0 Results/Medications Result Diagram: 09/12/18 0500 09/12/18 0500 Results 24 hrs Laboratory Tests Test 09/12/18 05:00 White Blood Count 3.3 L Red Blood Count 3.43 L Hemoglobin 9.7 L Hematocrit 31.0 L Mean Corpuscular Volume 90.4 Mean Corpuscular Hemoglobin 28.3 L Mean Corpuscular Hemoglobin Concent 31.3 L Red Cell Distribution Width 15.9 H Platelet Count 66 L Mean Platelet Volume 10.5 H Immature Granulocytes % 1.200 H Neutrophils % 86.8 H Lymphocytes % 8.9 L Monocytes % 3.1 Eosinophils % 0.0 Basophils % 0.0 Nucleated Red Blood Cells % 0.0 Immature Granulocytes # 0.040 H Neutrophils # 2.8 Lymphocytes # 0.3 L Monocytes # 0.1 L Eosinophils # 0.0 Basophils # 0.0 Nucleated Red Blood Cells # 0.0 Sodium Level 147 H Potassium Level 4.2 Chloride Level 105 Carbon Dioxide Level 38 H Anion Gap 4 L Blood Urea Nitrogen 39 H Creatinine 0.80 Est Glomerular Filtrat Rate mL/min > 60 Glucose Level 131 Calcium Level 9.4 Phosphorus Level 3.0 Magnesium Level 2.7 H Medications Current Medications Ondansetron HCl (Zofran Inj) 4 mg Q6H PRN IV NAUSEA AND/OR VOMITING Last administered on 09/06/18 18:46; Admin Dose 4 MG; Start 08/26/18 at 23:30 Acetaminophen (Tylenol Supp) 650 mg Q4H PRN [place] PAIN LEVEL 1-3 OR FEVER; Start 08/26/18 at 23:30 Aspirin (Aspirin) 81 mg DAILY PO Last administered on 09/12/18 09:17; Admin Dose 81 MG; Start 08/29/18 at 09:00 Famotidine (Pepcid) 20 mg Q12 PO Last administered on 09/12/18 09:17; Admin Dose 20 MG; Start 08/29/18 at 21:00 Zolpidem Tartrate (Ambien) 5 mg HS PRN PO INSOMNIA Last administered on 09/10/18 20:31; Admin Dose 5 MG; Start 09/01/18 at 00:00 Guaifenesin/ Dextromethorphan (Robitussin Dm Liquid Cup) 5 ml Q6H PRN PO COUGH Last administered on 09/05/18 09:04; Admin Dose 5 ML; Start 09/01/18 at 20:00 Divalproex Sodium (Depakote) 250 mg Q8H PO Last administered on 09/12/18 09:17; Admin Dose 250 MG; Start 09/02/18 at 17:00 Morphine Sulfate (morphine) 6 mg Q4H PRN PO SEVERE PAIN LEVEL 7-10 Last administered on 09/10/18 02:47; Admin Dose 6 MG; Start 09/04/18 at 21:30 Albuterol/ Ipratropium (Duoneb) 3 ml Q3H RESP THERAPY PRN HHN SHORTNESS OF BREATH; Start 09/05/18 at 20:00 Risperidone (Risperdal) 1 mg BID PO Last administered on 09/12/18 09:17; Admin Dose 1 MG; Start 09/06/18 at 21:00 Meropenem/Sodium Chloride 50 ml @ 100 mls/hr Q12 IVPB Last administered on 09/12/18 09:17; Admin Dose 100 MLS/HR; Start 09/06/18 at 15:00 Methylprednisolone Sodium Succinate (Solu-Medrol) 40 mg Q6 IV Last administered on 09/12/18 05:00; Admin Dose 40 MG; Start 09/07/18 at 12:00 Propofol 100 ml @ 1.875 mls/ hr Q12H IV Last administered on 09/09/18 08:09; Admin Dose 15 MLS/HR; Start 09/07/18 at 11:00 Fentanyl 100 ml @ 2.5 mls/hr TITRATE IV Last administered on 09/09/18 09:17; Admin Dose 5 MLS/HR; Start 09/07/18 at 11:30 Norepinephrine 250 ml @ 1.875 mls/ hr TITRATE IV Last administered on 09/08/18 02:08; Admin Dose 11.25 MLS/HR; Start 09/07/18 at 11:00 Alteplase, Recombinant (Cathflo (Activase)) 2 mg MAY REPEAT X1 PRN CATHETER IF CATHETER REMAINS OCCULUDED; Start 09/07/18 at 11:00 Amlodipine Besylate (Norvasc) 5 mg DAILY PO Last administered on 09/12/18 09:17; Admin Dose 5 MG; Start 09/10/18 at 09:00 Albuterol/ Ipratropium (Duoneb) 3 ml Q6H RESP THERAPY HHN Last administered on 09/12/18 08:19; Admin Dose 3 ML; Start 09/09/18 at 20:00 Lorazepam (Ativan) 1 mg Q6H PRN IV PSYCHOSIS Last administered on 09/12/18 02:17; Admin Dose 1 MG; Start 09/12/18 at 02:00 Dextrose 1,000 ml @ 40 mls/hr Q24H IV Last administered on 09/12/18 08:05; Admin Dose 40 MLS/HR; Start 09/12/18 at 08:00 Assessment/Plan Hospital Course (Demo Recall) Assessment 1. Hypoxic respiratory failure on mechanical ventilation, safely extubated on nasal cannula O2 2. Pneumoperitoneum status post chest tube which patient pulled out 3. Encephalopathy toxic metabolic resolving 4. Advanced COPD 5. Hypernatremia likely free water deficit 6. Thrombocytopenia Plan 1. Speech therapy recommendations and aspiration precautions 2. Physical therapy as tolerated Critical care time 40 minutes Stable for transfer to telemetry KHUSHI PATTON MD, [facility] Sep 12, 2018 11:03
--- NOTE | 2018-09-12 11:09 | CONS ---
Assessment/Plan Assessment/Plan Hospital Course (Demo Recall) IMP: 1.Hypotension-improved today and tolerating norvasc. NL EF by echo this admit 2.resp failure s/p extubation 3.cardiac arrest 4.pneumoperitoneum-resolved 5.Positive troponin-now trended neg 6.renal failure-improved 7.Leukocytosis 8. anemia 9, Thrombocytopenia-ongoing some worsening 10.Resp failure-hypercapneic s/p intubation. s/p extubation 11.PNA-by cxr Recc: -IN ICU -Continue norvasc and follow BP clsoely -Continue asa -continue steroids/bronchodilators -Continue abx's and f/u cx data -Continue risperdal -follow MS closely -Follow volume status clsoely Consultation Date/Type/Reason Admit Date/Time Aug 27, 2018 at 00:03 Initial Consult Date 08/27/18 Type of Consult Cardiology Reason for Consultation positive troponin Requesting Provider: VIVIANA NOLAN MD Date/Time of Note DATE: 09/12/18 TIME: 11:07 Exam/Review of Systems Vital Signs Vitals Vital Signs Date Temp Pulse Resp B/P (MAP) Pulse Ox O2 O2 Flow FiO2 Time Delivery Rate 09/12/18 87 25 123/90 90 Nasal 4.0 09:00 (101) Cannula 09/12/18 35 08:21 09/12/18 97.3 08:00 Intake and Output 09/11/18 09/11/18 09/12/18 1515:00 23:00 07:00 IntakeIntake Total 950 ml 625 ml 0 ml OutputOutput Total 1770 ml 1430 ml 675 ml BalanceBalance -820 ml -805 ml -675 ml Exam Exam Review of Systems: CONSTITUTIONAL: No fevers, chills. PULMONARY: No sob CARDIOVASCULAR: No chest pain/palpitations GASTROINTESTINAL: No nausea/vomiting. GENITOURINARY: No hematuria/dysuria. MUSCULOSKELETAL: No myagias/arthalgias. PSYCHIATRIC: The patient denies depression. NEUROLOGIC: No weakness Constitutional: other (awake) Psych: no complaints Head: normocephalic ENMT: mucosa pink and moist Neck: supple, jvd (9 cm water) Respiratory: diminished breath sounds (at bases/BV) Cardiovascular: regular rate and rhythm Gastrointestinal: soft, non-tender Musculoskeletal: muscle tone (normal) Extremities: edema (trace/B) Neurological: other (No focal deficits) Labs Result Diagram: 09/12/18 0500 09/12/18 0500 Results 24hrs Laboratory Tests Test 09/12/18 05:00 White Blood Count 3.3 L Red Blood Count 3.43 L Hemoglobin 9.7 L Hematocrit 31.0 L Mean Corpuscular Volume 90.4 Mean Corpuscular Hemoglobin 28.3 L Mean Corpuscular Hemoglobin Concent 31.3 L Red Cell Distribution Width 15.9 H Platelet Count 66 L Mean Platelet Volume 10.5 H Immature Granulocytes % 1.200 H Neutrophils % 86.8 H Lymphocytes % 8.9 L Monocytes % 3.1 Eosinophils % 0.0 Basophils % 0.0 Nucleated Red Blood Cells % 0.0 Immature Granulocytes # 0.040 H Neutrophils # 2.8 Lymphocytes # 0.3 L Monocytes # 0.1 L Eosinophils # 0.0 Basophils # 0.0 Nucleated Red Blood Cells # 0.0 Sodium Level 147 H Potassium Level 4.2 Chloride Level 105 Carbon Dioxide Level 38 H Anion Gap 4 L Blood Urea Nitrogen 39 H Creatinine 0.80 Est Glomerular Filtrat Rate mL/min > 60 Glucose Level 131 Calcium Level 9.4 Phosphorus Level 3.0 Magnesium Level 2.7 H Medications Medications Current Medications Ondansetron HCl (Zofran Inj) 4 mg Q6H PRN IV NAUSEA AND/OR VOMITING Last administered on 09/06/18at 18:46; Admin Dose 4 MG; Start 08/26/18 at 23:30 Acetaminophen (Tylenol Supp) 650 mg Q4H PRN [place] PAIN LEVEL 1-3 OR FEVER; Start 08/26/18 at 23:30 Aspirin (Aspirin) 81 mg DAILY PO Last administered on 09/12/18at 09:17; Admin Dose 81 MG; Start 08/29/18 at 09:00 Famotidine (Pepcid) 20 mg Q12 PO Last administered on 09/12/18at 09:17; Admin Dose 20 MG; Start 08/29/18 at 21:00 Zolpidem Tartrate (Ambien) 5 mg HS PRN PO INSOMNIA Last administered on 09/10/18 20:31; Admin Dose 5 MG; Start 09/01/18 at 00:00 Guaifenesin/ Dextromethorphan (Robitussin Dm Liquid Cup) 5 ml Q6H PRN PO COUGH Last administered on 09/05/18 09:04; Admin Dose 5 ML; Start 09/01/18 at 20:00 Divalproex Sodium (Depakote) 250 mg Q8H PO Last administered on 09/12/18 09:17; Admin Dose 250 MG; Start 09/02/18 at 17:00 Morphine Sulfate (morphine) 6 mg Q4H PRN PO SEVERE PAIN LEVEL 7-10 Last administered on 09/10/18 02:47; Admin Dose 6 MG; Start 09/04/18 at 21:30 Albuterol/ Ipratropium (Duoneb) 3 ml Q3H RESP THERAPY PRN HHN SHORTNESS OF BREATH; Start 09/05/18 at 20:00 Risperidone (Risperdal) 1 mg BID PO Last administered on 09/12/18 09:17; Admin Dose 1 MG; Start 09/06/18 at 21:00 Meropenem/Sodium Chloride 50 ml @ 100 mls/hr Q12 IVPB Last administered on 09/12/18 09:17; Admin Dose 100 MLS/HR; Start 09/06/18 at 15:00 Methylprednisolone Sodium Succinate (Solu-Medrol) 40 mg Q6 IV Last administered on 09/12/18 05:00; Admin Dose 40 MG; Start 09/07/18 at 12:00 Propofol 100 ml @ 1.875 mls/ hr Q12H IV Last administered on 09/09/18 08:09; Admin Dose 15 MLS/HR; Start 09/07/18 at 11:00 Fentanyl 100 ml @ 2.5 mls/hr TITRATE IV Last administered on 09/09/18 09:17; Admin Dose 5 MLS/HR; Start 09/07/18 at 11:30 Norepinephrine 250 ml @ 1.875 mls/ hr TITRATE IV Last administered on 09/08/18 02:08; Admin Dose 11.25 MLS/HR; Start 09/07/18 at 11:00 Alteplase, Recombinant (Cathflo (Activase)) 2 mg MAY REPEAT X1 PRN CATHETER IF CATHETER REMAINS OCCULUDED; Start 09/07/18 at 11:00 Amlodipine Besylate (Norvasc) 5 mg DAILY PO Last administered on 09/12/18 09:17; Admin Dose 5 MG; Start 09/10/18 at 09:00 Albuterol/ Ipratropium (Duoneb) 3 ml Q6H RESP THERAPY HHN Last administered on 09/12/18at 08:19; Admin Dose 3 ML; Start 09/09/18 at 20:00 Lorazepam (Ativan) 1 mg Q6H PRN IV PSYCHOSIS Last administered on 09/12/18at 02:17; Admin Dose 1 MG; Start 09/12/18 at 02:00 Dextrose 1,000 ml @ 40 mls/hr Q24H IV Last administered on 09/12/18at 08:05; Admin Dose 40 MLS/HR; Start 09/12/18 at 08:00 MITCHEL DESOUZA Sep 12, 2018 11:09
--- NOTE | 2018-09-12 13:21 | CONS ---
Assessment/Plan Assessment/Plan Hospital Course (Demo Recall) Patient is awake looks comfortable. He has lots of secretions and requires frequent spitting especially after food intake, still on pured diet. He is afebrile. WBC 3.3 platelets 66 neutrophils 86.8 BUN 39 creatinine 0.80 Chest x-ray this morning revealed no change Antimicrobials: Meropenem Indwelling: Right IJ triple-lumen catheter, Sellers Physical examination: Well-developed chronically ill-appearing cachectic elderly man. Head atraumatic normocephalic sclera nonicteric, neck is supple chest rise symmetrical breath sounds diminished bases. Heart: S1-S2. Abdomen soft bowel sounds present. Extremities without edema/cyanosis Assessment: 1. Acute hypoxemic respiratory failure, s/p extubated 2. Pneumonia, possibly aspirated 4. Pneumoperitoneum of unclear etiology, no perforation per surgical note, status post chest tube 5. Dementia 5. Anemia with progressive thrombocytopenia 6. History of non-ST elevation [place] 7. Status post cardiac arrest 8. RIJ TLC Plan: Remains unchanged, continue aspiration precautions, follow pulmonary rec-s Consultation Date/Type/Reason Admit Date/Time Aug 27, 2018 at 00:03 Initial Consult Date 08/27/18 Type of Consult ID Requesting Provider: VIVIANA NOLAN MD Date/Time of Note DATE: 09/12/18 TIME: 13:20 Exam/Review of Systems Exam Vitals Vital Signs Date Temp Pulse Resp B/P (MAP) Pulse Ox O2 O2 Flow FiO2 Time Delivery Rate 09/12/18 96 12:00 09/12/18 26 129/79 97 Venturi 9.0 11:00 (96) Mask 09/12/18 35 08:21 09/12/18 97.3 08:00 Intake and Output 09/11/18 09/11/18 09/12/18 1515:00 23:00 07:00 IntakeIntake Total 950 ml 625 ml 0 ml OutputOutput Total 1770 ml 1430 ml 675 ml BalanceBalance -820 ml -805 ml -675 ml Results Result Diagram: 09/12/18 0500 09/12/18 0500 Results 24hrs Laboratory Tests Test 09/12/18 05:00 White Blood Count 3.3 L Red Blood Count 3.43 L Hemoglobin 9.7 L Hematocrit 31.0 L Mean Corpuscular Volume 90.4 Mean Corpuscular Hemoglobin 28.3 L Mean Corpuscular Hemoglobin Concent 31.3 L Red Cell Distribution Width 15.9 H Platelet Count 66 L Mean Platelet Volume 10.5 H Immature Granulocytes % 1.200 H Neutrophils % 86.8 H Lymphocytes % 8.9 L Monocytes % 3.1 Eosinophils % 0.0 Basophils % 0.0 Nucleated Red Blood Cells % 0.0 Immature Granulocytes # 0.040 H Neutrophils # 2.8 Lymphocytes # 0.3 L Monocytes # 0.1 L Eosinophils # 0.0 Basophils # 0.0 Nucleated Red Blood Cells # 0.0 Sodium Level 147 H Potassium Level 4.2 Chloride Level 105 Carbon Dioxide Level 38 H Anion Gap 4 L Blood Urea Nitrogen 39 H Creatinine 0.80 Est Glomerular Filtrat Rate mL/min > 60 Glucose Level 131 Calcium Level 9.4 Phosphorus Level 3.0 Magnesium Level 2.7 H Medications Medication Current Medications Ondansetron HCl (Zofran Inj) 4 mg Q6H PRN IV NAUSEA AND/OR VOMITING Last administered on 09/06/18 18:46; Admin Dose 4 MG; Start 08/26/18 at 23:30 Acetaminophen (Tylenol Supp) 650 mg Q4H PRN [place] PAIN LEVEL 1-3 OR FEVER; Start 08/26/18 at 23:30 Aspirin (Aspirin) 81 mg DAILY PO Last administered on 09/12/18 09:17; Admin Dose 81 MG; Start 08/29/18 at 09:00 Famotidine (Pepcid) 20 mg Q12 PO Last administered on 09/12/18 09:17; Admin Dose 20 MG; Start 08/29/18 at 21:00 Zolpidem Tartrate (Ambien) 5 mg HS PRN PO INSOMNIA Last administered on 09/10/18 20:31; Admin Dose 5 MG; Start 09/01/18 at 00:00 Guaifenesin/ Dextromethorphan (Robitussin Dm Liquid Cup) 5 ml Q6H PRN PO COUGH Last administered on 09/05/18 09:04; Admin Dose 5 ML; Start 09/01/18 at 20:00 Divalproex Sodium (Depakote) 250 mg Q8H PO Last administered on 09/12/18 09:17; Admin Dose 250 MG; Start 09/02/18 at 17:00 Morphine Sulfate (morphine) 6 mg Q4H PRN PO SEVERE PAIN LEVEL 7-10 Last administered on 09/10/18 02:47; Admin Dose 6 MG; Start 09/04/18 at 21:30 Albuterol/ Ipratropium (Duoneb) 3 ml Q3H RESP THERAPY PRN HHN SHORTNESS OF BREATH; Start 09/05/18 at 20:00 Risperidone (Risperdal) 1 mg BID PO Last administered on 09/12/18 09:17; Admin Dose 1 MG; Start 09/06/18 at 21:00 Meropenem/Sodium Chloride 50 ml @ 100 mls/hr Q12 IVPB Last administered on 09/12/18 09:17; Admin Dose 100 MLS/HR; Start 09/06/18 at 15:00 Methylprednisolone Sodium Succinate (Solu-Medrol) 40 mg Q6 IV Last administered on 09/12/18 12:22; Admin Dose 40 MG; Start 09/07/18 at 12:00 Propofol 100 ml @ 1.875 mls/ hr Q12H IV Last administered on 09/09/18 08:09; Admin Dose 15 MLS/HR; Start 09/07/18 at 11:00 Fentanyl 100 ml @ 2.5 mls/hr TITRATE IV Last administered on 09/09/18 09:17; Admin Dose 5 MLS/HR; Start 09/07/18 at 11:30 Norepinephrine 250 ml @ 1.875 mls/ hr TITRATE IV Last administered on 09/08/18 02:08; Admin Dose 11.25 MLS/HR; Start 09/07/18 at 11:00 Alteplase, Recombinant (Cathflo (Activase)) 2 mg MAY REPEAT X1 PRN CATHETER IF CATHETER REMAINS OCCULUDED; Start 09/07/18 at 11:00 Amlodipine Besylate (Norvasc) 5 mg DAILY PO Last administered on 09/12/18 09:17; Admin Dose 5 MG; Start 09/10/18 at 09:00 Albuterol/ Ipratropium (Duoneb) 3 ml Q6H RESP THERAPY HHN Last administered on 09/12/18 08:19; Admin Dose 3 ML; Start 09/09/18 at 20:00 Lorazepam (Ativan) 1 mg Q6H PRN IV PSYCHOSIS Last administered on 2/7/19at 02:17; Admin Dose 1 MG; Start 09/12/18 at 02:00 Dextrose 1,000 ml @ 40 mls/hr Q24H IV Last administered on 09/12/18at 08:05; Admin Dose 40 MLS/HR; Start 09/12/18 at 08:00 AALIYAH MEZA NP Sep 12, 2018 13:21
--- NOTE | 2018-09-12 16:23 | PN ---
Date/Time of Note Date/Time of Note DATE: 09/12/18 TIME: 16:21 Assessment/Plan VTE Prophylaxis Risk score (from [facility] [place] risk: 14 SCD applied (from [facility] [place] Yes Pharmacological prophylaxis: NA/contraindicated Pharm contraindication: other Lines/Catheters IV Catheter Type (from [facility]): Central Line Central line still needed: Yes Urinary Cath still in place: Yes Reason Cath still needed: urinary retention Assessment/Plan Hospital Course Patient is confused, continue on Venturi mask, pending swallow evaluation. Assessment/Plan -Hypoxic respiratory failure requiring mechanical ventilation, extubated. Dr. Mejias is following in pulmonology consultation. -Sepsis with shock, resolving. Dr. Sutton is following in infection disease consultation. -Status post cardiac arrest. Dr. Hernández is following in cardiology consultation. -Left-sided pneumothorax, status post left side chest tube placement, s/p self d/c CT. -S/p pneumoperitoneum most likely due to cardiac arrest, resolved. Dr. Rivas is following in general surgery consultation. -Left axillary and brachial DVT, LUE swelling subsided, was on Lovenox which is currently held due to thrombocytopenia -Left lower lobe pneumonia -Severe emphysema -JEREMÍAS with possible chronic kidney disease. Dr Arvizu is following in nephrology consultation. -Schizoaffective disorder depressed type. Psychiatric consult is appreciated, continue Risperdal Depakote Critical care time spent more than 30 minutes. Further recommendations based on clinical course. Plan of care discussed with Dr. Juarez. Result Diagram: 09/12/18 0500 09/12/18 0500 Results 24hrs Laboratory Tests Test 09/12/18 05:00 White Blood Count 3.3 L Red Blood Count 3.43 L Hemoglobin 9.7 L Hematocrit 31.0 L Mean Corpuscular Volume 90.4 Mean Corpuscular Hemoglobin 28.3 L Mean Corpuscular Hemoglobin Concent 31.3 L Red Cell Distribution Width 15.9 H Platelet Count 66 L Mean Platelet Volume 10.5 H Immature Granulocytes % 1.200 H Neutrophils % 86.8 H Lymphocytes % 8.9 L Monocytes % 3.1 Eosinophils % 0.0 Basophils % 0.0 Nucleated Red Blood Cells % 0.0 Immature Granulocytes # 0.040 H Neutrophils # 2.8 Lymphocytes # 0.3 L Monocytes # 0.1 L Eosinophils # 0.0 Basophils # 0.0 Nucleated Red Blood Cells # 0.0 Sodium Level 147 H Potassium Level 4.2 Chloride Level 105 Carbon Dioxide Level 38 H Anion Gap 4 L Blood Urea Nitrogen 39 H Creatinine 0.80 Est Glomerular Filtrat Rate mL/min > 60 Glucose Level 131 Calcium Level 9.4 Phosphorus Level 3.0 Magnesium Level 2.7 H Exam/Review of Systems Exam Vitals Vital Signs Date Temp Pulse Resp B/P (MAP) Pulse Ox O2 O2 Flow FiO2 Time Delivery Rate 09/12/18 88 16:00 09/12/18 23 149/87 100 Venturi 9.0 15:00 (107) Mask 09/12/18 35 14:59 09/12/18 97.2 12:00 Intake and Output 09/11/18 09/11/18 09/12/18 1515:00 23:00 07:00 IntakeIntake Total 950 ml 625 ml 0 ml OutputOutput Total 1770 ml 1430 ml 675 ml BalanceBalance -820 ml -805 ml -675 ml Exam Constitutional: alert, oriented Respiratory: diminished breath sounds, wheezing Cardiovascular: regular rate and rhythm Gastrointestinal: soft, non-tender Musculoskeletal: nl extremities to inspection Extremities: normal pulses Neurological: nl mental status Results Results 24hrs Laboratory Tests Test 09/12/18 05:00 White Blood Count 3.3 L Red Blood Count 3.43 L Hemoglobin 9.7 L Hematocrit 31.0 L Mean Corpuscular Volume 90.4 Mean Corpuscular Hemoglobin 28.3 L Mean Corpuscular Hemoglobin Concent 31.3 L Red Cell Distribution Width 15.9 H Platelet Count 66 L Mean Platelet Volume 10.5 H Immature Granulocytes % 1.200 H Neutrophils % 86.8 H Lymphocytes % 8.9 L Monocytes % 3.1 Eosinophils % 0.0 Basophils % 0.0 Nucleated Red Blood Cells % 0.0 Immature Granulocytes # 0.040 H Neutrophils # 2.8 Lymphocytes # 0.3 L Monocytes # 0.1 L Eosinophils # 0.0 Basophils # 0.0 Nucleated Red Blood Cells # 0.0 Sodium Level 147 H Potassium Level 4.2 Chloride Level 105 Carbon Dioxide Level 38 H Anion Gap 4 L Blood Urea Nitrogen 39 H Creatinine 0.80 Est Glomerular Filtrat Rate mL/min > 60 Glucose Level 131 Calcium Level 9.4 Phosphorus Level 3.0 Magnesium Level 2.7 H Medications Medication Current Medications Ondansetron HCl (Zofran Inj) 4 mg Q6H PRN IV NAUSEA AND/OR VOMITING Last administered on 09/06/18 18:46; Admin Dose 4 MG; Start 08/26/18 at 23:30 Acetaminophen (Tylenol Supp) 650 mg Q4H PRN [place] PAIN LEVEL 1-3 OR FEVER; Start 08/26/18 at 23:30 Aspirin (Aspirin) 81 mg DAILY PO Last administered on 09/12/18 09:17; Admin Dose 81 MG; Start 08/29/18 at 09:00 Famotidine (Pepcid) 20 mg Q12 PO Last administered on 09/12/18 09:17; Admin Dose 20 MG; Start 08/29/18 at 21:00 Zolpidem Tartrate (Ambien) 5 mg HS PRN PO INSOMNIA Last administered on 09/10/18 20:31; Admin Dose 5 MG; Start 09/01/18 at 00:00 Guaifenesin/ Dextromethorphan (Robitussin Dm Liquid Cup) 5 ml Q6H PRN PO COUGH Last administered on 09/05/18 09:04; Admin Dose 5 ML; Start 09/01/18 at 20:00 Divalproex Sodium (Depakote) 250 mg Q8H PO Last administered on 09/12/18 09:17; Admin Dose 250 MG; Start 09/02/18 at 17:00 Morphine Sulfate (morphine) 6 mg Q4H PRN PO SEVERE PAIN LEVEL 7-10 Last administered on 09/10/18 02:47; Admin Dose 6 MG; Start 09/04/18 at 21:30 Albuterol/ Ipratropium (Duoneb) 3 ml Q3H RESP THERAPY PRN HHN SHORTNESS OF BREATH; Start 09/05/18 at 20:00 Risperidone (Risperdal) 1 mg BID PO Last administered on 09/12/18 09:17; Admin Dose 1 MG; Start 09/06/18 at 21:00 Meropenem/Sodium Chloride 50 ml @ 100 mls/hr Q12 IVPB Last administered on 09/12/18 09:17; Admin Dose 100 MLS/HR; Start 09/06/18 at 15:00 Methylprednisolone Sodium Succinate (Solu-Medrol) 40 mg Q6 IV Last administered on 2/7/19at 12:22; Admin Dose 40 MG; Start 09/07/18 at 12:00 Propofol 100 ml @ 1.875 mls/ hr Q12H IV Last administered on 09/09/18 08:09; Admin Dose 15 MLS/HR; Start 09/07/18 at 11:00 Fentanyl 100 ml @ 2.5 mls/hr TITRATE IV Last administered on 09/09/18 09:17; Admin Dose 5 MLS/HR; Start 09/07/18 at 11:30 Norepinephrine 250 ml @ 1.875 mls/ hr TITRATE IV Last administered on 09/08/18 02:08; Admin Dose 11.25 MLS/HR; Start 09/07/18 at 11:00 Alteplase, Recombinant (Cathflo (Activase)) 2 mg MAY REPEAT X1 PRN CATHETER IF CATHETER REMAINS OCCULUDED; Start 09/07/18 at 11:00 Amlodipine Besylate (Norvasc) 5 mg DAILY PO Last administered on 09/12/18 0 9:17; Admin Dose 5 MG; Start 09/10/18 at 09:00 Albuterol/ Ipratropium (Duoneb) 3 ml Q6H RESP THERAPY HHN Last administered on 09/12/18 14:55; Admin Dose 3 ML; Start 09/09/18 at 20:00 Lorazepam (Ativan) 1 mg Q6H PRN IV PSYCHOSIS Last administered on 09/12/18 16:10; Admin Dose 1 MG; Start 09/12/18 at 02:00 Dextrose 1,000 ml @ 40 mls/hr Q24H IV Last administered on 09/12/18 08:05; Admin Dose 40 MLS/HR; Start 09/12/18 at 08:00 HERMES HARRIS Sep 12, 2018 16:23
[2018-09-13] VITALS (25 sets, daily range): BP systolic 111–152; BP diastolic 77–106; PULSE 81–102; RESP 19–28
[2018-09-13] MEDS: DIVALPROEX (EC) 250 MG TAB PO SCH ×3 (00:15→16:31)
[2018-09-13] MEDS: ALBUTEROL/IPRATROPIUM (NEB) 3 ML AMP HHN SCH ×4 (01:37→19:39)
[2018-09-13] MEDS: LORAZEPAM 2 MG INJ IV PRN (03:40)
[2018-09-13] MEDS: METHYLPREDNISOLONE 40 MG INJ IV SCH ×3 (05:05→18:35)
[2018-09-13] MEDS: DEXTROSE 5% 1,000 ML IV SCH ×2 (05:05→20:17)
[2018-09-13] MEDS: AMLODIPINE 5 MG TAB PO SCH (09:00)
[2018-09-13] MEDS: PROPOFOL 100 ML IV SCH ×2 (10:20→23:00)
[2018-09-13] MEDS: MEROPENEM 1 GM/50ML(PMX) 50 ML IVPB SCH ×2 (10:20→20:17)
[2018-09-13] MEDS: BALSAM PERU/CASTOR OIL 60 GM TUBE TOP SCH (10:20)
[2018-09-13] MEDS: RISPERIDONE 1 MG TAB PO SCH ×2 (10:35→20:17)
[2018-09-13] MEDS: ASPIRIN 81 MG TAB PO SCH (10:46)
[2018-09-13] MEDS: FAMOTIDINE 20 MG TAB PO SCH ×2 (10:49→20:17)
--- NOTE | 2018-09-13 11:45 | CONS ---
Assessment/Plan Assessment/Plan Hospital Course (Demo Recall) IMP: 1.Hypotension-improved today and tolerating norvasc. NL EF by echo this admit 2.resp failure s/p extubation 3.cardiac arrest 4.pneumoperitoneum-resolved 5.Positive troponin-now trended neg 6.renal failure-improved 7.Leukocytosis 8. anemia 9, Thrombocytopenia-ongoing some worsening 10.Resp failure-hypercapneic s/p intubation. s/p extubation 11.PNA-by cxr Recc: -IN ICU -Continue norvasc and follow BP clsoely -Continue asa -continue steroids/bronchodilators -Continue abx's and f/u cx data -Continue risperdal -follow MS closely which is improved today -Follow volume status clsoely Consultation Date/Type/Reason Admit Date/Time Aug 27, 2018 at 00:03 Initial Consult Date 08/27/18 Type of Consult Cardiology Reason for Consultation HTN Requesting Provider: VIVIANA NOLAN MD Date/Time of Note DATE: 09/13/18 TIME: 11:43 Exam/Review of Systems Vital Signs Vitals Vital Signs Date Temp Pulse Resp B/P (MAP) Pulse Ox O2 O2 Flow FiO2 Time Delivery Rate 09/13/18 88 24 125/83 100 Venturi 11:00 (97) Mask 09/13/18 98.4 08:00 09/13/18 9.0 35 01:47 Intake and Output 09/12/18 09/12/18 09/13/18 1515:00 23:00 07:00 IntakeIntake Total 780 ml 370 ml 440 ml OutputOutput Total 1450 ml 1240 ml 955 ml BalanceBalance -670 ml -870 ml -515 ml Exam Exam Review of Systems: CONSTITUTIONAL: No fevers, chills. PULMONARY: No sob CARDIOVASCULAR: No chest pain/palpitations GASTROINTESTINAL: No nausea/vomiting. GENITOURINARY: No hematuria/dysuria. MUSCULOSKELETAL: No myagias/arthalgias. PSYCHIATRIC: The patient denies depression. NEUROLOGIC: No weakness Constitutional: alert Psych: no complaints Head: normocephalic ENMT: mucosa pink and moist Neck: supple, jvd (9 cm water) Respiratory: diminished breath sounds (@ bases/B) Cardiovascular: regular rate and rhythm Gastrointestinal: soft, non-tender Musculoskeletal: muscle tone (normal) Extremities: edema (none) Neurological: other (more awake/alert) Labs Result Diagram: 09/13/1844409/13/18444 Results 24hrs Laboratory Tests Test 09/13/18 04:45 White Blood Count 3.3 L Red Blood Count 3.55 L Hemoglobin 10.0 L Hematocrit 32.0 L Mean Corpuscular Volume 90.1 Mean Corpuscular Hemoglobin 28.2 L Mean Corpuscular Hemoglobin Concent 31.3 L Red Cell Distribution Width 16.1 H Platelet Count 69 L Mean Platelet Volume 10.8 H Immature Granulocytes % 0.900 H Neutrophils % 88.0 H Lymphocytes % 8.7 L Monocytes % 2.4 Eosinophils % 0.0 Basophils % 0.0 Nucleated Red Blood Cells % 0.0 Immature Granulocytes # 0.030 Neutrophils # 2.9 Lymphocytes # 0.3 L Monocytes # 0.1 L Eosinophils # 0.0 Basophils # 0.0 Nucleated Red Blood Cells # 0.0 Sodium Level 150 H Potassium Level 4.0 Chloride Level 113 H Carbon Dioxide Level 40 H Anion Gap -3 L Blood Urea Nitrogen 35 H Creatinine 0.71 Est Glomerular Filtrat Rate mL/min > 60 Glucose Level 137 Calcium Level 9.5 Phosphorus Level 2.9 Magnesium Level 2.7 H Medications Medications Current Medications Ondansetron HCl (Zofran Inj) 4 mg Q6H PRN IV NAUSEA AND/OR VOMITING Last administered on 09/06/18at 18:46; Admin Dose 4 MG; Start 08/26/18 at 23:30 Acetaminophen (Tylenol Supp) 650 mg Q4H PRN [place] PAIN LEVEL 1-3 OR FEVER; Start 08/26/18 at 23:30 Aspirin (Aspirin) 81 mg DAILY PO Last administered on 09/13/18at 10:46; Admin Dose 81 MG; Start 08/29/18 at 09:00 Famotidine (Pepcid) 20 mg Q12 PO Last administered on 09/13/18at 10:49; Admin Dose 20 MG; Start 08/29/18 at 21:00 Zolpidem Tartrate (Ambien) 5 mg HS PRN PO INSOMNIA Last administered on 09/10/18 20:31; Admin Dose 5 MG; Start 09/01/18 at 00:00 Guaifenesin/ Dextromethorphan (Robitussin Dm Liquid Cup) 5 ml Q6H PRN PO COUGH Last administered on 09/05/18 09:04; Admin Dose 5 ML; Start 09/01/18 at 20:00 Divalproex Sodium (Depakote) 250 mg Q8H PO Last administered on 09/13/18 10:35; Admin Dose 250 MG; Start 09/02/18 at 17:00 Morphine Sulfate (morphine) 6 mg Q4H PRN PO SEVERE PAIN LEVEL 7-10 Last administered on 09/10/18 02:47; Admin Dose 6 MG; Start 09/04/18 at 21:30 Albuterol/ Ipratropium (Duoneb) 3 ml Q3H RESP THERAPY PRN HHN SHORTNESS OF BREATH Last administered on 09/12/18 18:47; Admin Dose 3 ML; Start 09/05/18 at 20:00 Risperidone (Risperdal) 1 mg BID PO Last administered on 09/13/18 10:35; Admin Dose 1 MG; Start 09/06/18 at 21:00 Meropenem/Sodium Chloride 50 ml @ 100 mls/hr Q12 IVPB Last administered on 09/13/18 10:20; Admin Dose 100 MLS/HR; Start 09/06/18 at 15:00 Methylprednisolone Sodium Succinate (Solu-Medrol) 40 mg Q6 IV Last administered on 09/13/18 11:34; Admin Dose 40 MG; Start 09/07/18 at 12:00 Propofol 100 ml @ 1.875 mls/ hr Q12H IV Last administered on 09/09/18 08:09; Admin Dose 15 MLS/HR; Start 09/07/18 at 11:00 Fentanyl 100 ml @ 2.5 mls/hr TITRATE IV Last administered on 09/09/18 09:17; Admin Dose 5 MLS/HR; Start 09/07/18 at 11:30 Norepinephrine 250 ml @ 1.875 mls/ hr TITRATE IV Last administered on 09/08/18 02:08; Admin Dose 11.25 MLS/HR; Start 09/07/18 at 11:00 Alteplase, Recombinant (Cathflo (Activase)) 2 mg MAY REPEAT X1 PRN CATHETER IF CATHETER REMAINS OCCULUDED; Start 09/07/18 at 11:00 Amlodipine Besylate (Norvasc) 5 mg DAILY PO Last administered on 09/13/18 09:00; Admin Dose 5 MG; Start 09/10/18 at 09:00 Albuterol/ Ipratropium (Duoneb) 3 ml Q6H RESP THERAPY HHN Last administered on 09/13/18 08:45; Admin Dose 3 ML; Start 09/09/18 at 20:00 Lorazepam (Ativan) 1 mg Q6H PRN IV PSYCHOSIS Last administered on 09/13/18 03:40; Admin Dose 1 MG; Start 09/12/18 at 02:00 Dextrose 1,000 ml @ 75 mls/hr [id number] IV Last administered on 09/13/18 05:05; Admin Dose 40 MLS/HR; Start 09/12/18 at 08:00 Haloperidol (Haldol) 2 mg PRN PRN IM AGITATION; Start 09/13/18 at 06:30 MITCHEL DESOUZA Sep 13, 2018 11:45
--- NOTE | 2018-09-13 12:00 | PN ---
Date/Time of Note Date/Time of Note DATE: 09/13/18 TIME: 11:48 Assessment/Plan VTE Prophylaxis Risk score (from [facility] [place] risk: 13 SCD applied (from [facility] [place]): Yes Pharmacological prophylaxis: NA/contraindicated Pharm contraindication: thrombocytopenia Lines/Catheters IV Catheter Type (from [facility]): Central Line Central line still needed: Yes Urinary Cath still in place: Yes Reason Cath still needed: urinary retention Assessment/Plan Hospital Course Patient continues on Venturi mask, pt passed swallow evaluation, continue strict aspiration precaution, only when patient is awake and sitting upright, follow-up speech therapy recommendations. Patient has congestion, continue breathing treatment, IS, suctioning. Assessment/Plan -Hypoxic respiratory failure requiring mechanical ventilation, extubated. Dr. Mejias is following in pulmonology consultation. -Sepsis with shock, resolving. Dr. Sutton is following in infection disease consultation. -Status post cardiac arrest. Dr. eHrnández is following in cardiology consultation. -Left-sided pneumothorax, status post left side chest tube placement, s/p self d/c CT. -S/p pneumoperitoneum most likely due to cardiac arrest, resolved. Dr. Rivas is following in general surgery consultation. -Left axillary and brachial DVT, LUE swelling subsided, was on Lovenox which is currently held due to thrombocytopenia -Left lower lobe pneumonia -Severe emphysema -JEREMÍAS with possible chronic kidney disease. Dr Arvizu is following in nephrology consultation. -Schizoaffective disorder depressed type. Psychiatric consult is appreciated, continue Risperdal Depakote Further recommendations based on clinical course. Plan of care discussed with Dr. Juarez. Result Diagram: 09/13/185 09/13/18 0445 Results 24hrs Laboratory Tests Test 09/13/18 04:45 White Blood Count 3.3 L Red Blood Count 3.55 L Hemoglobin 10.0 L Hematocrit 32.0 L Mean Corpuscular Volume 90.1 Mean Corpuscular Hemoglobin 28.2 L Mean Corpuscular Hemoglobin Concent 31.3 L Red Cell Distribution Width 16.1 H Platelet Count 69 L Mean Platelet Volume 10.8 H Immature Granulocytes % 0.900 H Neutrophils % 88.0 H Lymphocytes % 8.7 L Monocytes % 2.4 Eosinophils % 0.0 Basophils % 0.0 Nucleated Red Blood Cells % 0.0 Immature Granulocytes # 0.030 Neutrophils # 2.9 Lymphocytes # 0.3 L Monocytes # 0.1 L Eosinophils # 0.0 Basophils # 0.0 Nucleated Red Blood Cells # 0.0 Sodium Level 150 H Potassium Level 4.0 Chloride Level 113 H Carbon Dioxide Level 40 H Anion Gap -3 L Blood Urea Nitrogen 35 H Creatinine 0.71 Est Glomerular Filtrat Rate mL/min > 60 Glucose Level 137 Calcium Level 9.5 Phosphorus Level 2.9 Magnesium Level 2.7 H Exam/Review of Systems Exam Vitals Vital Signs Date Temp Pulse Resp B/P (MAP) Pulse Ox O2 O2 Flow FiO2 Time Delivery Rate 09/13/18 88 24 125/83 100 Venturi 11:00 (97) Mask 09/13/18 98.4 08:00 09/13/18 9.0 35 01:47 Intake and Output 09/12/18 09/12/18 09/13/18 1515:00 23:00 07:00 IntakeIntake Total 780 ml 370 ml 440 ml OutputOutput Total 1450 ml 1240 ml 955 ml BalanceBalance -670 ml -870 ml -515 ml Exam Constitutional: alert, oriented Respiratory: diminished breath sounds, wheezing Cardiovascular: regular rate and rhythm Gastrointestinal: soft, non-tender Musculoskeletal: nl extremities to inspection Extremities: normal pulses Neurological: nl mental status Results Results 24hrs Laboratory Tests Test 09/13/18 04:45 White Blood Count 3.3 L Red Blood Count 3.55 L Hemoglobin 10.0 L Hematocrit 32.0 L Mean Corpuscular Volume 90.1 Mean Corpuscular Hemoglobin 28.2 L Mean Corpuscular Hemoglobin Concent 31.3 L Red Cell Distribution Width 16.1 H Platelet Count 69 L Mean Platelet Volume 10.8 H Immature Granulocytes % 0.900 H Neutrophils % 88.0 H Lymphocytes % 8.7 L Monocytes % 2.4 Eosinophils % 0.0 Basophils % 0.0 Nucleated Red Blood Cells % 0.0 Immature Granulocytes # 0.030 Neutrophils # 2.9 Lymphocytes # 0.3 L Monocytes # 0.1 L Eosinophils # 0.0 Basophils # 0.0 Nucleated Red Blood Cells # 0.0 Sodium Level 150 H Potassium Level 4.0 Chloride Level 113 H Carbon Dioxide Level 40 H Anion Gap -3 L Blood Urea Nitrogen 35 H Creatinine 0.71 Est Glomerular Filtrat Rate mL/min > 60 Glucose Level 137 Calcium Level 9.5 Phosphorus Level 2.9 Magnesium Level 2.7 H Medications Medication Current Medications Ondansetron HCl (Zofran Inj) 4 mg Q6H PRN IV NAUSEA AND/OR VOMITING Last administered on 09/06/18 18:46; Admin Dose 4 MG; Start 08/26/18 at 23:30 Acetaminophen (Tylenol Supp) 650 mg Q4H PRN [place] PAIN LEVEL 1-3 OR FEVER; Start 08/26/18 at 23:30 Aspirin (Aspirin) 81 mg DAILY PO Last administered on 09/13/18 10:46; Admin Dose 81 MG; Start 08/29/18 at 09:00 Famotidine (Pepcid) 20 mg Q12 PO Last administered on 09/13/18 10:49; Admin Dose 20 MG; Start 08/29/18 at 21:00 Zolpidem Tartrate (Ambien) 5 mg HS PRN PO INSOMNIA Last administered on 09/10/18 20:31; Admin Dose 5 MG; Start 09/01/18 at 00:00 Guaifenesin/ Dextromethorphan (Robitussin Dm Liquid Cup) 5 ml Q6H PRN PO COUGH Last administered on 09/05/18 09:04; Admin Dose 5 ML; Start 09/01/18 at 20:00 Divalproex Sodium (Depakote) 250 mg Q8H PO Last administered on 09/13/18 10:35; Admin Dose 250 MG; Start 09/02/18 at 17:00 Morphine Sulfate (morphine) 6 mg Q4H PRN PO SEVERE PAIN LEVEL 7-10 Last administered on 09/10/18 02:47; Admin Dose 6 MG; Start 09/04/18 at 21:30 Albuterol/ Ipratropium (Duoneb) 3 ml Q3H RESP THERAPY PRN HHN SHORTNESS OF BREATH Last administered on 09/12/18 18:47; Admin Dose 3 ML; Start 09/05/18 at 20:00 Risperidone (Risperdal) 1 mg BID PO Last administered on 09/13/18 10:35; Admin Dose 1 MG; Start 09/06/18 at 21:00 Meropenem/Sodium Chloride 50 ml @ 100 mls/hr Q12 IVPB Last administered on 09/13 10:20; Admin Dose 100 MLS/HR; Start 09/06/18 at 15:00 Methylprednisolone Sodium Succinate (Solu-Medrol) 40 mg Q6 IV Last administered on 09/13/18 11:34; Admin Dose 40 MG; Start 09/07/18 at 12:00 Propofol 100 ml @ 1.875 mls/ hr Q12H IV Last administered on 09/09/18 08:09; Admin Dose 15 MLS/HR; Start 09/07/18 at 11:00 Fentanyl 100 ml @ 2.5 mls/hr TITRATE IV Last administered on 09/09/18 09:17; Admin Dose 5 MLS/HR; Start 09/07/18 at 11:30 Norepinephrine 250 ml @ 1.875 mls/ hr TITRATE IV Last administered on 09/08/18 02:08; Admin Dose 11.25 MLS/HR; Start 09/07/18 at 11:00 Alteplase, Recombinant (Cathflo (Activase)) 2 mg MAY REPEAT X1 PRN CATHETER IF CATHETER REMAINS OCCULUDED; Start 09/07/18 at 11:00 Amlodipine Besylate (Norvasc) 5 mg DAILY PO Last administered on 09/13/18 09:00; Admin Dose 5 MG; Start 09/10/18 at 09:00 Albuterol/ Ipratropium (Duoneb) 3 ml Q6H RESP THERAPY HHN Last administered on 09/13/18 08:45; Admin Dose 3 ML; Start 09/09/18 at 20:00 Lorazepam (Ativan) 1 mg Q6H PRN IV PSYCHOSIS Last administered on 09/13/18 03:40; Admin Dose 1 MG; Start 09/12/18 at 02:00 Dextrose 1,000 ml @ 75 mls/hr [id number] IV Last administered on 09/13/18 05:05; Admin Dose 40 MLS/HR; Start 09/12/18 at 08:00 Haloperidol (Haldol) 2 mg PRN PRN IM AGITATION; Start 09/13/18 at 06:30 HERMES HARRIS Sep 13, 2018 11:59
--- NOTE | 2018-09-13 12:11 | PN ---
DATE: 09/13/2018 SUBJECTIVE: The patient remains lethargic. The patient is currently n.p.o. as he failed his swallow evaluation. The patient remains on Venturi mask. No other events noted. OBJECTIVE: VITAL SIGNS: Blood pressure is 132/96, respirations 26, pulse 89, temperature 98.1. HEENT: Head is normocephalic. NECK: Supple. HEART: Regular rate. LUNGS: Show diminished breath sounds at the base. ABDOMEN: Soft, nontender to palpation. No rebound or guarding. EXTREMITIES: Negative for clubbing, cyanosis. No edema. DERMATOLOGIC: No rashes. MUSCULOSKELETAL: No joint effusions. NEUROLOGIC: No change in exam. MEDICATIONS: The patient's medications have been reviewed. LABORATORY DATA: Shows sodium 150, potassium 4.0, bicarbonate 40, BUN 35, creatinine 0.71. White co unt 3.3, hemoglobin 10.0, platelet count is 69. ASSESSMENT AND PLAN: 1. Nonoliguric acute kidney injury with unknown baseline creatinine. Etiology is secondary to hemod ynamics. The patient's renal function has improved. The patient does have underlying azotemia secon lamont to acute kidney injury, hypercatabolic state. We will continue to monitor closely. Continue cruz pportive care, renally dose all medicines. 2. Hypernatremia, the patient has a free water deficit of approximately 2.5 liters. We will increas e D5 water at 75 mL an hour, monitor serum sodium levels closely. 3. Anemia. Continue to monitor hemoglobin and hematocrit levels. 4. Mineral bone disorder, monitor calcium and phosphorus levels. 5. Diastolic heart failure. The patient appears compensated. We will continue to monitor, give int ermittent diuretic therapy as needed. 6. Alkalosis. Etiology is likely compensatory due to underlying hypercapnia. We will continue to m onitor. Consider repeating ABG. 7. Acute hypoxemic, hypercapnic respiratory failure. The patient remains on Venturi facemask. Cont inue to monitor. Follow up with pulmonary. May require reintubation. 8. Sepsis, status post shock secondary to pneumonia. Continue current antibiotic regimen. 9. Acute encephalopathy, etiology is toxic metabolic. Continue to monitor. 10. Status post cardiac arrest. 11. Status post pneumothorax. 12. Status post pneumoperitoneum. 13. Left brachial deep vein thrombosis. Continue medical management. Dictated By: JOE CHU/DUKE Conf#: [id number] DID#: [id number] CC: WEI SHAH NP; WENDY LOVE MD; VIVIANA NOLAN MD;*EndCC*
--- NOTE | 2018-09-13 12:30 | CONS ---
Assessment/Plan Assessment/Plan Hospital Course (Demo Recall) No acute events overnight patient is on Ventimask looks comfortable. Per report has significant difficulties with swallowing. No fevers WBC 3.3 platelets 69 neutrophils 88 BUN 35 creatinine 0.71 Antimicrobials: Meropenem Indwelling: Right IJ triple-lumen catheter, Sellers Physical examination: Well-developed chronically ill-appearing cachectic elderly man. Head atraumatic normocephalic sclera nonicteric, neck is supple chest rise symmetrical breath sounds diminished bases. Heart: S1-S2. Abdomen soft bowel sounds present. Extremities without edema/cyanosis Assessment: 1. Respiratory failure/pneumonia 2. Dysphagia with ongoing aspiration 4. Pneumoperitoneum of unclear etiology, no perforation per surgical note, status post chest tube 5. Dementia 5. Anemia with progressive thrombocytopenia 6. History of non-ST elevation [place] 7. Status post cardiac arrest 8. RIJ TLC Plan: Remains unchanged, continue antibiotics, aspiration precautions, follow pulmonary rec-s Consultation Date/Type/Reason Admit Date/Time Aug 27, 2018 at 00:03 Initial Consult Date 08/27/18 Type of Consult ID Requesting Provider: VIVIANA ONLAN MD Date/Time of Note DATE: 09/13/18 TIME: 12:29 Exam/Review of Systems Exam Vitals Vital Signs Date Temp Pulse Resp B/P (MAP) Pulse Ox O2 O2 Flow FiO2 Time Delivery Rate 09/13/18 88 24 125/83 100 Venturi 11:00 (97) Mask 09/13/18 98.4 08:00 09/13/18 9.0 35 01:47 Intake and Output 09/12/18 09/12/18 09/13/18 1515:00 23:00 07:00 IntakeIntake Total 780 ml 370 ml 440 ml OutputOutput Total 1450 ml 1240 ml 955 ml BalanceBalance -670 ml -870 ml -515 ml Results Result Diagram: 09/13/185 09/13/18444 Results 24hrs Laboratory Tests Test 09/13/18 04:45 White Blood Count 3.3 L Red Blood Count 3.55 L Hemoglobin 10.0 L Hematocrit 32.0 L Mean Corpuscular Volume 90.1 Mean Corpuscular Hemoglobin 28.2 L Mean Corpuscular Hemoglobin Concent 31.3 L Red Cell Distribution Width 16.1 H Platelet Count 69 L Mean Platelet Volume 10.8 H Immature Granulocytes % 0.900 H Neutrophils % 88.0 H Lymphocytes % 8.7 L Monocytes % 2.4 Eosinophils % 0.0 Basophils % 0.0 Nucleated Red Blood Cells % 0.0 Immature Granulocytes # 0.030 Neutrophils # 2.9 Lymphocytes # 0.3 L Monocytes # 0.1 L Eosinophils # 0.0 Basophils # 0.0 Nucleated Red Blood Cells # 0.0 Sodium Level 150 H Potassium Level 4.0 Chloride Level 113 H Carbon Dioxide Level 40 H Anion Gap -3 L Blood Urea Nitrogen 35 H Creatinine 0.71 Est Glomerular Filtrat Rate mL/min > 60 Glucose Level 137 Calcium Level 9.5 Phosphorus Level 2.9 Magnesium Level 2.7 H Medications Medication Current Medications Ondansetron HCl (Zofran Inj) 4 mg Q6H PRN IV NAUSEA AND/OR VOMITING Last administered on 09/06/18 18:46; Admin Dose 4 MG; Start 08/26/18 at 23:30 Acetaminophen (Tylenol Supp) 650 mg Q4H PRN [place] PAIN LEVEL 1-3 OR FEVER; Start 08/26/18 at 23:30 Aspirin (Aspirin) 81 mg DAILY PO Last administered on 09/13/18 10:46; Admin Dose 81 MG; Start 08/29/18 at 09:00 Famotidine (Pepcid) 20 mg Q12 PO Last administered on 09/13/18 10:49; Admin Dose 20 MG; Start 08/29/18 at 21:00 Zolpidem Tartrate (Ambien) 5 mg HS PRN PO INSOMNIA Last administered on 09/10/18 20:31; Admin Dose 5 MG; Start 09/01/18 at 00:00 Guaifenesin/ Dextromethorphan (Robitussin Dm Liquid Cup) 5 ml Q6H PRN PO COUGH Last administered on 09/05/18 09:04; Admin Dose 5 ML; Start 09/01/18 at 20:00 Divalproex Sodium (Depakote) 250 mg Q8H PO Last administered on 09/13/18 10:35; Admin Dose 250 MG; Start 09/02/18 at 17:00 Morphine Sulfate (morphine) 6 mg Q4H PRN PO SEVERE PAIN LEVEL 7-10 Last administered on 09/10/18 02:47; Admin Dose 6 MG; Start 09/04/18 at 21:30 Albuterol/ Ipratropium (Duoneb) 3 ml Q3H RESP THERAPY PRN HHN SHORTNESS OF BREATH Last administered on 09/12/18 18:47; Admin Dose 3 ML; Start 09/05/18 at 20:00 Risperidone (Risperdal) 1 mg BID PO Last administered on 09/13/18 10:35; Admin Dose 1 MG; Start 09/06/18 at 21:00 Meropenem/Sodium Chloride 50 ml @ 100 mls/hr Q12 IVPB Last administered on 09/13/18 10:20; Admin Dose 100 MLS/HR; Start 09/06/18 at 15:00 Methylprednisolone Sodium Succinate (Solu-Medrol) 40 mg Q6 IV Last administered on 09/13/18 11:34; Admin Dose 40 MG; Start 09/07/18 at 12:00 Propofol 100 ml @ 1.875 mls/ hr Q12H IV Last administered on 09/09/18 08:09; Admin Dose 15 MLS/HR; Start 09/07/18 at 11:00 Fentanyl 100 ml @ 2.5 mls/hr TITRATE IV Last administered on 09/09/18 09:17; Admin Dose 5 MLS/HR; Start 09/07/18 at 11:30 Norepinephrine 250 ml @ 1.875 mls/ hr TITRATE IV Last administered on 09/08/18 02:08; Admin Dose 11.25 MLS/HR; Start 09/07/18 at 11:00 Alteplase, Recombinant (Cathflo (Activase)) 2 mg MAY REPEAT X1 PRN CATHETER IF CATHETER REMAINS OCCULUDED; Start 09/07/18 at 11:00 Amlodipine Besylate (Norvasc) 5 mg DAILY PO Last administered on 09/13/18 09:00; Admin Dose 5 MG; Start 09/10/18 at 09:00 Albuterol/ Ipratropium (Duoneb) 3 ml Q6H RESP THERAPY HHN Last administered on 09/13/18 08:45; Admin Dose 3 ML; Start 09/09/18 at 20:00 Lorazepam (Ativan) 1 mg Q6H PRN IV PSYCHOSIS Last administered on 09/13/18 03:40; Admin Dose 1 MG; Start 09/12/18 at 02:00 Dextrose 1,000 ml @ 75 mls/hr [id number] IV Last administered on 09/13/18at 05:05; Admin Dose 40 MLS/HR; Start 09/12/18 at 08:00 Haloperidol (Haldol) 2 mg PRN PRN IM AGITATION; Start 09/13/18 at 06:30 AALIYAH MEZA NP Sep 13, 2018 12:30
--- NOTE | 2018-09-13 13:25 | CONS ---
Consult Date/Type/Reason Admit Date/Time Aug 27, 2018 at 00:03 Initial Consult Date 08/27/18 Type of Consult Pulmonary Requesting Provider: VIVIANA NOLAN MD Date/Time of Note DATE: 09/13/18 TIME: 13:24 Subjective Intermittent agitation nasal cannula O2. Currently hemodynamically stable. Objective Vital Signs Date Temp Pulse Resp B/P (MAP) Pulse Ox O2 O2 Flow FiO2 Time Delivery Rate 09/13/18 91 25 137/87 100 Venturi 13:00 (104) Mask 09/13/18 97.7 12:00 09/13/18 9.0 35 01:47 Intake and Output 09/12/18 09/12/18 09/13/18 1515:00 23:00 07:00 IntakeIntake Total 780 ml 370 ml 440 ml OutputOutput Total 1450 ml 1240 ml 955 ml BalanceBalance -670 ml -870 ml -515 ml Exam GENERAL: Elderly gentleman well-nourished well-developed VITAL SIGNS: per chart NECK: Supple. No JVD or lymphadenopathy. CARDIAC EXAM: S1, S2. No added sounds or murmurs. CHEST: Diminished air entry both bases ABDOMEN: Soft, nontender. No guarding or rebound. EXTREMITIES: No cyanosis, clubbing or edema. NEUROLOGIC: Generalized weakness. No focal deficits. Vent Setting Ventilator Support Mode: SPONT Fraction of Inspired Oxygen pe: 35 Positive End Expiratory Pressu: 5.0 Results/Medications Result Diagram: 09/13/1844409/13/18444 Results 24 hrs Laboratory Tests Test 09/13/18 04:45 White Blood Count 3.3 L Red Blood Count 3.55 L Hemoglobin 10.0 L Hematocrit 32.0 L Mean Corpuscular Volume 90.1 Mean Corpuscular Hemoglobin 28.2 L Mean Corpuscular Hemoglobin Concent 31.3 L Red Cell Distribution Width 16.1 H Platelet Count 69 L Mean Platelet Volume 10.8 H Immature Granulocytes % 0.900 H Neutrophils % 88.0 H Lymphocytes % 8.7 L Monocytes % 2.4 Eosinophils % 0.0 Basophils % 0.0 Nucleated Red Blood Cells % 0.0 Immature Granulocytes # 0.030 Neutrophils # 2.9 Lymphocytes # 0.3 L Monocytes # 0.1 L Eosinophils # 0.0 Basophils # 0.0 Nucleated Red Blood Cells # 0.0 Sodium Level 150 H Potassium Level 4.0 Chloride Level 113 H Carbon Dioxide Level 40 H Anion Gap -3 L Blood Urea Nitrogen 35 H Creatinine 0.71 Est Glomerular Filtrat Rate mL/min > 60 Glucose Level 137 Calcium Level 9.5 Phosphorus Level 2.9 Magnesium Level 2.7 H Medications Current Medications Ondansetron HCl (Zofran Inj) 4 mg Q6H PRN IV NAUSEA AND/OR VOMITING Last administered on 09/06/18 18:46; Admin Dose 4 MG; Start 08/26/18 at 23:30 Acetaminophen (Tylenol Supp) 650 mg Q4H PRN [place] PAIN LEVEL 1-3 OR FEVER; Start 08/26/18 at 23:30 Aspirin (Aspirin) 81 mg DAILY PO Last administered on 09/13/18 10:46; Admin Dose 81 MG; Start 08/29/18 at 09:00 Famotidine (Pepcid) 20 mg Q12 PO Last administered on 09/13/18 10:49; Admin Dose 20 MG; Start 08/29/18 at 21:00 Zolpidem Tartrate (Ambien) 5 mg HS PRN PO INSOMNIA Last administered on 09/10/18 20:31; Admin Dose 5 MG; Start 09/01/18 at 00:00 Guaifenesin/ Dextromethorphan (Robitussin Dm Liquid Cup) 5 ml Q6H PRN PO COUGH Last administered on 09/05/18 09:04; Admin Dose 5 ML; Start 09/01/18 at 20:00 Divalproex Sodium (Depakote) 250 mg Q8H PO Last administered on 09/13/18 10:35; Admin Dose 250 MG; Start 09/02/18 at 17:00 Morphine Sulfate (morphine) 6 mg Q4H PRN PO SEVERE PAIN LEVEL 7-10 Last administered on 09/10/18 02:47; Admin Dose 6 MG; Start 09/04/18 at 21:30 Albuterol/ Ipratropium (Duoneb) 3 ml Q3H RESP THERAPY PRN HHN SHORTNESS OF BREATH Last administered on 09/12/18 18:47; Admin Dose 3 ML; Start 09/05/18 at 20:00 Risperidone (Risperdal) 1 mg BID PO Last administered on 09/13/18 10:35; Admin Dose 1 MG; Start 09/06/18 at 21:00 Meropenem/Sodium Chloride 50 ml @ 100 mls/hr Q12 IVPB Last administered on 09/13/18 10:20; Admin Dose 100 MLS/HR; Start 09/06/18 at 15:00 Methylprednisolone Sodium Succinate (Solu-Medrol) 40 mg Q6 IV Last administered on 09/13/18 11:34; Admin Dose 40 MG; Start 09/07/18 at 12:00 Propofol 100 ml @ 1.875 mls/ hr Q12H IV Last administered on 09/09/18 08:09; Admin Dose 15 MLS/HR; Start 09/07/18 at 11:00 Fentanyl 100 ml @ 2.5 mls/hr TITRATE IV Last administered on 09/09/18 09:17; Admin Dose 5 MLS/HR; Start 09/07/18 at 11:30 Norepinephrine 250 ml @ 1.875 mls/ hr TITRATE IV Last administered on 09/08/18 02:08; Admin Dose 11.25 MLS/HR; Start 09/07/18 at 11:00 Alteplase, Recombinant (Cathflo (Activase)) 2 mg MAY REPEAT X1 PRN CATHETER IF CATHETER REMAINS OCCULUDED; Start 09/07/18 at 11:00 Amlodipine Besylate (Norvasc) 5 mg DAILY PO Last administered on 09/13/18 09:00; Admin Dose 5 MG; Start 09/10/18 at 09:00 Albuterol/ Ipratropium (Duoneb) 3 ml Q6H RESP THERAPY HHN Last administered on 09/13/18 08:45; Admin Dose 3 ML; Start 09/09/18 at 20:00 Lorazepam (Ativan) 1 mg Q6H PRN IV PSYCHOSIS Last administered on 09/13/18 03:40; Admin Dose 1 MG; Start 09/12/18 at 02:00 Dextrose 1,000 ml @ 75 mls/hr [id number] IV Last administered on 09/13/18 05:05; Admin Dose 40 MLS/HR; Start 09/12/18 at 08:00 Haloperidol (Haldol) 2 mg PRN PRN IM AGITATION; Start 09/13/18 at 06:30 Assessment/Plan Hospital Course (Demo Recall) Assessment 1. Hypoxic respiratory failure on mechanical ventilation, safely extubated on nasal cannula O2 2. Pneumoperitoneum status post chest tube which patient pulled out 3. Encephalopathy toxic metabolic resolving 4. Advanced COPD 5. Hypernatremia likely free water deficit 6. Thrombocytopenia Plan 1. Speech therapy recommendations and aspiration precautions 2. Physical therapy as tolerated 3. Gentle diuresis 4. Consider free water per nasogastric tube Critical care time 40 minutes Stable for transfer to telemetry KHUSHI PATTON MD, [facility] Sep 13, 2018 13:25
[2018-09-13] MEDS: morphine LIQ (10 MG/5 ML) CUP PO PRN (22:18)
[2018-09-14] VITALS (16 sets, daily range): BP systolic 124–147; BP diastolic 76–91; PULSE 83–106; RESP 16–25
[2018-09-14] MEDS: DIVALPROEX (EC) 250 MG TAB PO SCH ×3 (01:00→16:58)
[2018-09-14] MEDS: ALBUTEROL/IPRATROPIUM (NEB) 3 ML AMP HHN SCH ×4 (01:57→19:20)
[2018-09-14] MEDS: LORAZEPAM 2 MG INJ IV PRN (02:07)
[2018-09-14] MEDS: METHYLPREDNISOLONE 40 MG INJ IV SCH ×4 (02:07→18:17)
--- NOTE | 2018-09-14 07:47 | PN ---
Date/Time of Note Date/Time of Note DATE: 09/14/18 TIME: 07:45 Assessment/Plan VTE Prophylaxis Risk score (from Ns)>0 risk: 13 SCD applied (from Ns): Yes Pharmacological prophylaxis: other Lines/Catheters IV Catheter Type (from Nrsg): Central Line Central line still needed: Yes Urinary Cath still in place: Yes Reason Cath still needed: urinary retention Assessment/Plan Hospital Course SUBJECTIVE: The patient remains lethargic. The patient is currently on pureed diet. No other events noted. d/w Dr Arvizu OBJECTIVE: HEENT: Head is normocephalic. NECK: Supple. HEART: Regular rate. LUNGS: Show diminished breath sounds at the base. ABDOMEN: Soft, nontender to palpation. No rebound or guarding. EXTREMITIES: Negative for clubbing, cyanosis. No edema. DERMATOLOGIC: No rashes. MUSCULOSKELETAL: No joint effusions. NEUROLOGIC: No change in exam. MEDICATIONS: The patient's medications have been reviewed. LABORATORY DATA: Shows sodium 150, potassium 4.0, bicarbonate 40, BUN 35, creatinine 0.71. White count 3.3, hemoglobin 10.0, platelet count is 69. ASSESSMENT AND PLAN: 1. Nonoliguric acute kidney injury with unknown baseline creatinine. Etiology is secondary to hemodynamics. The patient's renal function has improved. The patient does have underlying azotemia secondary to acute kidney injury, hypercatabolic state. We will continue to monitor closely. Continue supportive care, renally dose all medicines. 2. Hypernatremia, the patient has a free water deficit of approximately 2 liters. We will continue D5W drip 3. Anemia. Continue to monitor hemoglobin and hematocrit levels. 4. Mineral bone disorder, monitor calcium and phosphorus levels. 5. Diastolic heart failure. The patient appears compensated. We will continue to monitor, give intermittent diuretic therapy as needed. 6. Alkalosis. Etiology is likely compensatory due to underlying hypercapnia. We will continue to monitor. Consider repeating ABG. 7. Acute hypoxemic, hypercapnic respiratory failure. The patient remains on Venturi facemask. Continue to monitor. Follow up with pulmonary. May require reintubation. 8. Sepsis, status post shock secondary to pneumonia. Continue current antibiotic regimen. 9. Acute encephalopathy, etiology is toxic metabolic. Continue to monitor. 10. Status post cardiac arrest. 11. Status post pneumothorax. 12. Status post pneumoperitoneum. 13. Left brachial deep vein thrombosis. Continue medical management. Result Diagram: 09/14/18 0545 09/14/18 0545 Results 24hrs Laboratory Tests Test 09/13/18 13:49 09/14/18 05:45 Sodium Level 150 H 147 H White Blood Count 4.4 #L Red Blood Count 3.52 L Hemoglobin 9.8 L Hematocrit 32.1 L Mean Corpuscular Volume 91.2 Mean Corpuscular Hemoglobin 27.8 L Mean Corpuscular Hemoglobin Concent 30.5 L Red Cell Distribution Width 16.2 H Platelet Count 65 L Mean Platelet Volume 11.1 H Immature Granulocytes % 0.500 H Neutrophils % 88.5 H Lymphocytes % 8.7 L Monocytes % 2.3 Eosinophils % 0.0 Basophils % 0.0 Nucleated Red Blood Cells % 0.0 Immature Granulocytes # 0.020 Neutrophils # 3.9 Lymphocytes # 0.4 L Monocytes # 0.1 L Eosinophils # 0.0 Basophils # 0.0 Nucleated Red Blood Cells # 0.0 Potassium Level 4.1 Chloride Level 107 Carbon Dioxide Level 39 H Anion Gap 1 L Blood Urea Nitrogen 32 H Creatinine 0.60 L Est Glomerular Filtrat Rate mL/min > 60 Glucose Level 111 Calcium Level 9.1 Phosphorus Level 3.2 Magnesium Level 2.7 H Exam/Review of Systems Exam Vitals Vital Signs Date Temp Pulse Resp B/P (MAP) Pulse Ox O2 O2 Flow FiO2 Time Delivery Rate 09/14/18 98.7 93 18 135/77 92 Nasal 5.0 07:08 (96) Cannula 09/14/18 44 01:58 Intake and Output 09/13/18 09/13/18 09/14/18 1515:00 23:00 07:00 IntakeIntake Total 600 ml 425 ml 300 ml OutputOutput Total 890 ml 915 ml 1500 ml BalanceBalance -290 ml -490 ml -1200 ml Results Results 24hrs Laboratory Tests Test 09/13/18 13:49 09/14/18 05:45 Sodium Level 150 H 147 H White Blood Count 4.4 #L Red Blood Count 3.52 L Hemoglobin 9.8 L Hematocrit 32.1 L Mean Corpuscular Volume 91.2 Mean Corpuscular Hemoglobin 27.8 L Mean Corpuscular Hemoglobin Concent 30.5 L Red Cell Distribution Width 16.2 H Platelet Count 65 L Mean Platelet Volume 11.1 H Immature Granulocytes % 0.500 H Neutrophils % 88.5 H Lymphocytes % 8.7 L Monocytes % 2.3 Eosinophils % 0.0 Basophils % 0.0 Nucleated Red Blood Cells % 0.0 Immature Granulocytes # 0.020 Neutrophils # 3.9 Lymphocytes # 0.4 L Monocytes # 0.1 L Eosinophils # 0.0 Basophils # 0.0 Nucleated Red Blood Cells # 0.0 Potassium Level 4.1 Chloride Level 107 Carbon Dioxide Level 39 H Anion Gap 1 L Blood Urea Nitrogen 32 H Creatinine 0.60 L Est Glomerular Filtrat Rate mL/min > 60 Glucose Level 111 Calcium Level 9.1 Phosphorus Level 3.2 Magnesium Level 2.7 H Medications Medication Current Medications Ondansetron HCl (Zofran Inj) 4 mg Q6H PRN IV NAUSEA AND/OR VOMITING Last admi nistered on 09/06/18 18:46; Admin Dose 4 MG; Start 08/26/18 at 23:30 Acetaminophen (Tylenol Supp) 650 mg Q4H PRN [place] PAIN LEVEL 1-3 OR FEVER; Start 08/26/18 at 23:30 Aspirin (Aspirin) 81 mg DAILY PO Last administered on 09/13/18 10:46; Admin Dose 81 MG; Start 08/29/18 at 09:00 Famotidine (Pepcid) 20 mg Q12 PO Last administered on 09/13/18 20:17; Admin Dose 20 MG; Start 08/29/18 at 21:00 Zolpidem Tartrate (Ambien) 5 mg HS PRN PO INSOMNIA Last administered on 09/10/18 20:31; Admin Dose 5 MG; Start 09/01/18 at 00:00 Guaifenesin/ Dextromethorphan (Robitussin Dm Liquid Cup) 5 ml Q6H PRN PO COUGH Last administered on 09/05/18 09:04; Admin Dose 5 ML; Start 09/01/18 at 20:00 Divalproex Sodium (Depakote) 250 mg Q8H PO Last administered on 09/14/18 01:00; Admin Dose 250 MG; Start 09/02/18 at 17:00 Morphine Sulfate (morphine) 6 mg Q4H PRN PO SEVERE PAIN LEVEL 7-10 Last administered on 09/13/18 22:18; Admin Dose 6 MG; Start 09/04/18 at 21:30 Albuterol/ Ipratropium (Duoneb) 3 ml Q3H RESP THERAPY PRN HHN SHORTNESS OF BREATH Last administered on 09/12/18 18:47; Admin Dose 3 ML; Start 09/05/18 at 20:00 Risperidone (Risperdal) 1 mg BID PO Last administered on 09/13/18 20:17; Admin Dose 1 MG; Start 09/06/18 at 21:00 Meropenem/Sodium Chloride 50 ml @ 100 mls/hr Q12 IVPB Last administered on 09/13/18 20:17; Admin Dose 100 MLS/HR; Start 09/06/18 at 15:00 Methylprednisolone Sodium Succinate (Solu-Medrol) 40 mg Q6 IV Last administered on 09/14/18 05:38; Admin Dose 40 MG; Start 09/07/18 at 12:00 Propofol 100 ml @ 1.875 mls/ hr Q12H IV Last administered on 09/09/18 08:09; Admin Dose 15 MLS/HR; Start 09/07/18 at 11:00 Fentanyl 100 ml @ 2.5 mls/hr TITRATE IV Last administered on 09/09/18 09:17; Admin Dose 5 MLS/HR; Start 09/07/18 at 11:30 Norepinephrine 250 ml @ 1.875 mls/ hr TITRATE IV Last administered on 09/08/18 02:08; Admin Dose 11.25 MLS/HR; Start 09/07/18 at 11:00 Alteplase, Recombinant (Cathflo (Activase)) 2 mg MAY REPEAT X1 PRN CATHETER IF CATHETER REMAINS OCCULUDED; Start 09/07/18 at 11:00 Amlodipine Besylate (Norvasc) 5 mg DAILY PO Last administered on 09/13/18 09:00; Admin Dose 5 MG; Start 09/10/18 at 09:00 Albuterol/ Ipratropium (Duoneb) 3 ml Q6H RESP THERAPY HHN Last administered on 09/14/18 01:57; Admin Dose 3 ML; Start 09/09/18 at 20:00 Lorazepam (Ativan) 1 mg Q6H PRN IV PSYCHOSIS Last administered on 09/14/18 02:07; Admin Dose 1 MG; Start 09/12/18 at 02:00 Dextrose 1,000 ml @ 75 mls/hr [id number] IV Last administered on 09/13/18at 20:17; Admin Dose 75 MLS/HR; Start 09/12/18 at 08:00 Haloperidol (Haldol) 2 mg PRN PRN IM AGITATION; Start 09/13/18 at 06:30 TIM MERRILL DO Sep 14, 2018 07:47
[2018-09-14] MEDS: BALSAM PERU/CASTOR OIL 60 GM TUBE TOP SCH (09:00)
--- NOTE | 2018-09-14 09:42 | CONS ---
Date/Time of Note Date/Time of Note DATE: 09/14/18 TIME: 09:39 Consult Date/Type/Reason Admit Date Aug 27, 2018 at 00:03 Type of Consult Psych Ordering Provider: VIVIANA NOLAN MD Subjective Patient is a 68-year-old male, seen as a follow-up for increased agitation and difficulty with redirection. On a [id number] evaluation, patient is currently sedated, staff report he has been increasingly agitated difficult to redirect. Objective Patient Appearance: Poor Hygiene Voice Loudness: Mildly Soft/Quiet Mood and Affect Description: Anxious (Staff report he is very anxious and agitated), Calm, Withdrawn Mood or Affect: Anxious Delusion Description: Not Present ALYSSA CARVAJAL NP Sep 14, 2018 09:42
[2018-09-14] MEDS: MEROPENEM 1 GM/50ML(PMX) 50 ML IVPB SCH (10:10)
[2018-09-14] MEDS: PROPOFOL 100 ML IV SCH (10:16)
--- NOTE | 2018-09-14 11:14 | PN ---
Date/Time of Note Date/Time of Note DATE: 09/14/18 TIME: 11:13 Assessment/Plan VTE Prophylaxis Risk score (from [facility] [place])>0 risk: 13 SCD applied (from [facility] [place]): Yes Pharmacological prophylaxis: LMWH Lines/Catheters IV Catheter Type (from [facility]): Central Line Central line still needed: Yes Urinary Cath still in place: Yes Reason Cath still needed: skin wounds contaminated by urine Assessment/Plan Hospital Course -Hypoxic respiratory failure requiring mechanical ventilation, extubated. Dr. Mejias is following in pulmonology consultation. -Sepsis with shock, resolving. Dr. Sutton is following in infection disease consultation. -Status post cardiac arrest. Dr. Hernández is following in cardiology consultation. -Left-sided pneumothorax, status post left side chest tube placement, s/p self d/c CT. -S/p pneumoperitoneum most likely due to cardiac arrest, resolved. Dr. Rivas is following in general surgery consultation. -Left axillary and brachial DVT, LUE swelling subsided, was on Lovenox which is currently held due to thrombocytopenia -Left lower lobe pneumonia -Severe emphysema -JEREMÍAS with possible chronic kidney disease. Dr Arvizu is following in nephrology consultation. -Schizoaffective disorder depressed type. Psychiatric consult is appreciated, continue Risperdal Depakote Result Diagram: 09/14/1845 09/14/1845 Results 24hrs Laboratory Tests Test 09/13/18 13:49 09/14/18 05:45 09/14/18 07:00 Sodium Level 150 H 147 H White Blood Count 4.4 #L Red Blood Count 3.52 L Hemoglobin 9.8 L Hematocrit 32.1 L Mean Corpuscular Volume 91.2 Mean Corpuscular Hemoglobin 27.8 L Mean Corpuscular 30.5 L Hemoglobin Concent Red Cell Distribution Width 16.2 H Platelet Count 65 L Mean Platelet Volume 11.1 H Immature Granulocytes % 0.500 H Neutrophils % 88.5 H Lymphocytes % 8.7 L Monocytes % 2.3 Eosinophils % 0.0 Basophils % 0.0 Nucleated Red Blood Cells % 0.0 Immature Granulocytes # 0.020 Neutrophils # 3.9 Lymphocytes # 0.4 L Monocytes # 0.1 L Eosinophils # 0.0 Basophils # 0.0 Nucleated Red Blood Cells # 0.0 Potassium Level 4.1 Chloride Level 107 Carbon Dioxide Level 39 H Anion Gap 1 L Blood Urea Nitrogen 32 H Creatinine 0.60 L Est Glomerular Filtrat > 60 Rate mL/min Glucose Level 111 Calcium Level 9.1 Phosphorus Level 3.2 Magnesium Level 2.7 H Blood Gas Specimen Source Blood arterial Arterial Blood Date Drawn 09/14/2018 8:11:03 AM Arterial Blood pH 7.387 (Temp corrected) Arterial Blood pCO2 58.4 H (Temp correct) Arterial Blood pO2 86.4 (Temp corrected) Arterial Blood HCO3 34.3 H Arterial Blood Base Excess 7.6 H Arterial Blood 94.4 L Oxygen Saturation Miller Test ACCEPTAB Arterial Blood Gas Right Radial Puncture Site Arterial 0.6 Blood Carboxyhemoglobin Arterial Blood Methemoglobin 0 Blood Gas A-a O2 Differential 102.5 H Oxyhemoglobin Percent 93.8 Blood Gas Temperature 37.0 Blood Gas Modality NASAL CANNULA FiO2 36.0 Blood Gas Notified Whom DT Blood Gas Notified Time 09/14/2018 8:29:05 AM Subjective 24 Hr Interval Summary Free Text/Dictation Patient awake and has no complaints Exam/Review of Systems Exam Vitals Vital Signs Date Temp Pulse Resp B/P (MAP) Pulse Ox O2 O2 Flow FiO2 Time Delivery Rate 09/14/18 97.0 88 18 136/84 96 Nasal 5.0 11:05 (101) Cannula 09/14/18 36 08:51 Intake and Output 09/13/18 09/13/18 09/14/18 1414:59 22:59 06:59 IntakeIntake Total 525 ml 500 ml 300 ml OutputOutput Total 900 ml 955 ml 1500 ml BalanceBalance -375 ml -455 ml -1200 ml Constitutional: well developed Head: normocephalic, atraumatic Neck: supple Respiratory: diminished breath sounds Cardiovascular: regular rate and rhythm Gastrointestinal: soft, non-tender Extremities: normal pulses Results Results 24hrs Laboratory Tests Test 09/13/18 13:49 09/14/18 05:45 09/14/18 07:00 Sodium Level 150 H 147 H White Blood Count 4.4 #L Red Blood Count 3.52 L Hemoglobin 9.8 L Hematocrit 32.1 L Mean Corpuscular Volume 91.2 Mean Corpuscular Hemoglobin 27.8 L Mean Corpuscular 30.5 L Hemoglobin Concent Red Cell Distribution Width 16.2 H Platelet Count 65 L Mean Platelet Volume 11.1 H Immature Granulocytes % 0.500 H Neutrophils % 88.5 H Lymphocytes % 8.7 L Monocytes % 2.3 Eosinophils % 0.0 Basophils % 0.0 Nucleated Red Blood Cells % 0.0 Immature Granulocytes # 0.020 Neutrophils # 3.9 Lymphocytes # 0.4 L Monocytes # 0.1 L Eosinophils # 0.0 Basophils # 0.0 Nucleated Red Blood Cells # 0.0 Potassium Level 4.1 Chloride Level 107 Carbon Dioxide Level 39 H Anion Gap 1 L Blood Urea Nitrogen 32 H Creatinine 0.60 L Est Glomerular Filtrat > 60 Rate mL/min Glucose Level 111 Calcium Level 9.1 Phosphorus Level 3.2 Magnesium Level 2.7 H Blood Gas Specimen Source Blood arterial Arterial Blood Date Drawn 09/14/2018 8:11:03 AM Arterial Blood pH 7.387 (Temp corrected) Arterial Blood pCO2 58.4 H (Temp correct) Arterial Blood pO2 86.4 (Temp corrected) Arterial Blood HCO3 34.3 H Arterial Blood Base Excess 7.6 H Arterial Blood 94.4 L Oxygen Saturation Miller Test ACCEPTAB Arterial Blood Gas Right Radial Puncture Site Arterial 0.6 Blood Carboxyhemoglobin Arterial Blood Methemoglobin 0 Blood Gas A-a O2 Differential 102.5 H Oxyhemoglobin Percent 93.8 Blood Gas Temperature 37.0 Blood Gas Modality NASAL CANNULA FiO2 36.0 Blood Gas Notified Whom DT Blood Gas Notified Time 09/14/2018 8:29:05 AM Medications Medication Current Medications Ondansetron HCl (Zofran Inj) 4 mg Q6H PRN IV NAUSEA AND/OR VOMITING Last administered on 09/06/18 18:46; Admin Dose 4 MG; Start 08/26/18 at 23:30 Acetaminophen (Tylenol Supp) 650 mg Q4H PRN [place] PAIN LEVEL 1-3 OR FEVER; Start 08/26/18 at 23:30 Aspirin (Aspirin) 81 mg DAILY PO Last administered on 09/13/18 10:46; Admin Dose 81 MG; Start 08/29/18 at 09:00 Famotidine (Pepcid) 20 mg Q12 PO Last administered on 09/13/18 20:17; Admin Dose 20 MG; Start 08/29/18 at 21:00 Zolpidem Tartrate (Ambien) 5 mg HS PRN PO INSOMNIA Last administered on 09/10/18 20:31; Admin Dose 5 MG; Start 09/01/18 at 00:00 Guaifenesin/ Dextromethorphan (Robitussin Dm Liquid Cup) 5 ml Q6H PRN PO COUGH Last administered on 09/05/18 09:04; Admin Dose 5 ML; Start 09/01/18 at 20:00 Divalproex Sodium (Depakote) 250 mg Q8H PO Last administered on 09/14/18 01:00; Admin Dose 250 MG; Start 09/02/18 at 17:00 Morphine Sulfate (morphine) 6 mg Q4H PRN PO SEVERE PAIN LEVEL 7-10 Last administered on 09/13/18 22:18; Admin Dose 6 MG; Start 09/04/18 at 21:30 Albuterol/ Ipratropium (Duoneb) 3 ml Q3H RESP THERAPY PRN HHN SHORTNESS OF BREATH Last administered on 09/12/18 18:47; Admin Dose 3 ML; Start 09/05/18 at 20:00 Meropenem/Sodium Chloride 50 ml @ 100 mls/hr Q12 IVPB Last administered on 09/14/18 10:10; Admin Dose 100 MLS/HR; Start 09/06/18 at 15:00 Methylprednisolone Sodium Succinate (Solu-Medrol) 40 mg Q6 IV Last administered on 09/14/18 05:38; Admin Dose 40 MG; Start 09/07/18 at 12:00 Propofol 100 ml @ 1.875 mls/ hr Q12H IV Last administered on 09/09/18 08:09; Admin Dose 15 MLS/HR; Start 09/07/18 at 11:00 Fentanyl 100 ml @ 2.5 mls/hr TITRATE IV Last administered on 09/09/18 09:17; Admin Dose 5 MLS/HR; Start 09/07/18 at 11:30 Norepinephrine 250 ml @ 1.875 mls/ hr TITRATE IV Last administered on 09/08/18 02:08; Admin Dose 11.25 MLS/HR; Start 09/07/18 at 11:00 Alteplase, Recombinant (Cathflo (Activase)) 2 mg MAY REPEAT X1 PRN CATHETER IF CATHETER REMAINS OCCULUDED; Start 09/07/18 at 11:00 Amlodipine Besylate (Norvasc) 5 mg DAILY PO Last administered on 2/8/19at 09:00; Admin Dose 5 MG; Start 09/10/18 at 09:00 Albuterol/ Ipratropium (Duoneb) 3 ml Q6H RESP THERAPY HHN Last administered on 09/14/18at 08:51; Admin Dose 3 ML; Start 09/09/18 at 20:00 Lorazepam (Ativan) 1 mg Q6H PRN IV PSYCHOSIS Last administered on 09/14/18at 02:07; Admin Dose 1 MG; Start 09/12/18 at 02:00 Dextrose 1,000 ml @ 75 mls/hr [id number] IV Last administered on 09/13/18at 20:17; Admin Dose 75 MLS/HR; Start 09/12/18 at 08:00 Haloperidol (Haldol) 2 mg PRN PRN IM AGITATION; Start 09/13/18 at 06:30 Risperidone (Risperdal) 2 mg BID PO ; Start 09/14/18 at 21:00 WENDY LOVE Sep 14, 2018 11:14
[2018-09-14] MEDS: FAMOTIDINE 20 MG TAB PO SCH ×2 (11:15→20:25)
[2018-09-14] MEDS: ASPIRIN 81 MG TAB PO SCH (11:15)
[2018-09-14] MEDS: AMLODIPINE 5 MG TAB PO SCH (11:15)
--- NOTE | 2018-09-14 12:21 | CONS ---
Consult Date/Type/Reason Admit Date/Time Aug 27, 2018 at 00:03 Initial Consult Date 08/27/18 Type of Consultation: Pulm Requesting Provider: VIVIANA NOLAN MD Date/Time of Note DATE: 09/14/18 TIME: 12:18 Subjective No overnight events. Appears agitated. Objective Vitals Vital Signs Date Temp Pulse Resp B/P (MAP) Pulse Ox O2 O2 Flow FiO2 Time Delivery Rate 09/14/18 97.6 86 22 133/82 100 Nasal 11:29 (99) Cannula 09/14/18 5.0 11:05 09/14/18 36 08:51 Intake and Output 09/13/18 09/13/18 09/14/18 1515:00 23:00 07:00 IntakeIntake Total 600 ml 425 ml 300 ml OutputOutput Total 890 ml 915 ml 1500 ml BalanceBalance -290 ml -490 ml -1200 ml Exam GENERAL: Elderly gentleman well-nourished well-developed VITAL SIGNS: per chart NECK: Supple. No JVD or lymphadenopathy. CARDIAC EXAM: S1, S2. No added sounds or murmurs. CHEST: Diminished air entry both bases ABDOMEN: Soft, nontender. No guarding or rebound. EXTREMITIES: No cyanosis, clubbing or edema. NEUROLOGIC: Generalized weakness. No focal deficits. Results/Medications Result Diagram: 09/14/18 0545 09/14/18 0545 Results 24 hrs Laboratory Tests Test 09/13/18 13:49 09/14/18 05:45 09/14/18 07:00 Sodium Level 150 H 147 H White Blood Count 4.4 #L Red Blood Count 3.52 L Hemoglobin 9.8 L Hematocrit 32.1 L Mean Corpuscular Volume 91.2 Mean Corpuscular Hemoglobin 27.8 L Mean Corpuscular 30.5 L Hemoglobin Concent Red Cell Distribution Width 16.2 H Platelet Count 65 L Mean Platelet Volume 11.1 H Immature Granulocytes % 0.500 H Neutrophils % 88.5 H Lymphocytes % 8.7 L Monocytes % 2.3 Eosinophils % 0.0 Basophils % 0.0 Nucleated Red Blood Cells % 0.0 Immature Granulocytes # 0.020 Neutrophils # 3.9 Lymphocytes # 0.4 L Monocytes # 0.1 L Eosinophils # 0.0 Basophils # 0.0 Nucleated Red Blood Cells # 0.0 Potassium Level 4.1 Chloride Level 107 Carbon Dioxide Level 39 H Anion Gap 1 L Blood Urea Nitrogen 32 H Creatinine 0.60 L Est Glomerular Filtrat > 60 Rate mL/min Glucose Level 111 Calcium Level 9.1 Phosphorus Level 3.2 Magnesium Level 2.7 H Blood Gas Specimen Source Blood arterial Arterial Blood Date Drawn 09/14/2018 8:11:03 AM Arterial Blood pH 7.387 (Temp corrected) Arterial Blood pCO2 58.4 H (Temp correct) Arterial Blood pO2 86.4 (Temp corrected) Arterial Blood HCO3 34.3 H Arterial Blood Base Excess 7.6 H Arterial Blood 94.4 L Oxygen Saturation Miller Test ACCEPTAB Arterial Blood Gas Right Radial Puncture Site Arterial 0.6 Blood Carboxyhemoglobin Arterial Blood Methemoglobin 0 Blood Gas A-a O2 Differential 102.5 H Oxyhemoglobin Percent 93.8 Blood Gas Temperature 37.0 Blood Gas Modality NASAL CANNULA FiO2 36.0 Blood Gas Notified Whom DT Blood Gas Notified Time 09/14/2018 8:29:05 AM Home Meds Reported Medications Docusate Sodium* (Colace*) 100 Mg Capsule, 100 MG PO Q24H PRN for CONSTIPATION, #30 CAP 08/26/18 Polyethylene Glycol* (Miralax*) 17 Gm Powd.pack, 17 GM PO DAILY PRN for NEEDED, #30 PACKET 08/26/18 Acetaminophen* (Acetaminophen*) 325 Mg Tablet, 650 MG PO Q4H PRN for PAIN - 05/15, #30 TAB AND FEVER>101F 08/26/18 Sennosides* (Senna Lax*) 8.6 Mg Tablet, 1 TAB PO NEEDED, TAB 08/26/18 Mv,Minerals/Fa/Lycopene/Ginkgo (ONE DAILY MEN'S 50+ TABLET) 1 Each Tablet, 1 EACH PO DAILY, TAB 08/26/18 Divalproex Sodium* (Depakote*) 125 Mg Tablet.dr, 250 MG PO Q8H, #90 TAB 08/26/18 Quetiapine Fumarate* (Seroquel*) 50 Mg Tablet, 50 MG PO Q8H, TAB 08/26/18 Ipratropium-Albuterol (Ipratropium-Albuterol) 0.5-3 Mg/3 Ml Ampul.neb, 3 ML INHALATION Q4H PRN for WHEEZING AND SOB, #30 VIAL 08/26/18 Budesonide-Formoterol Fumarate* (Symbicort*) 160-4.5 Hfa.aer.ad, 2 PUFF INHALATION BID, #1 EACH 08/26/18 Medications Current Medications Ondansetron HCl (Zofran Inj) 4 mg Q6H PRN IV NAUSEA AND/OR VOMITING Last administered on 09/06/18 18:46; Admin Dose 4 MG; Start 08/26/18 at 23:30 Acetaminophen (Tylenol Supp) 650 mg Q4H PRN [place] PAIN LEVEL 1-3 OR FEVER; Start 08/26/18 at 23:30 Aspirin (Aspirin) 81 mg DAILY PO Last administered on 09/14/18 11:15; Admin Dose 81 MG; Start 08/29/18 at 09:00 Famotidine (Pepcid) 20 mg Q12 PO Last administered on 09/14/18 11:15; Admin Dose 20 MG; Start 08/29/18 at 21:00 Zolpidem Tartrate (Ambien) 5 mg HS PRN PO INSOMNIA Last administered on 09/10/18 20:31; Admin Dose 5 MG; Start 09/01/18 at 00:00 Guaifenesin/ Dextromethorphan (Robitussin Dm Liquid Cup) 5 ml Q6H PRN PO COUGH Last administered on 09/05/18 09:04; Admin Dose 5 ML; Start 09/01/18 at 20:00 Divalproex Sodium (Depakote) 250 mg Q8H PO Last administered on 09/14/18 11:15; Admin Dose 250 MG; Start 09/02/18 at 17:00 Morphine Sulfate (morphine) 6 mg Q4H PRN PO SEVERE PAIN LEVEL 7-10 Last administered on 09/13/18 22:18; Admin Dose 6 MG; Start 09/04/18 at 21:30 Albuterol/ Ipratropium (Duoneb) 3 ml Q3H RESP THERAPY PRN HHN SHORTNESS OF B REATH Last administered on 09/12/18 18:47; Admin Dose 3 ML; Start 09/05/18 at 20:00 Meropenem/Sodium Chloride 50 ml @ 100 mls/hr Q12 IVPB Last administered on 09/14/18 10:10; Admin Dose 100 MLS/HR; Start 09/06/18 at 15:00 Methylprednisolone Sodium Succinate (Solu-Medrol) 40 mg Q6 IV Last administered on 09/14/18 05:38; Admin Dose 40 MG; Start 09/07/18 at 12:00 Propofol 100 ml @ 1.875 mls/ hr Q12H IV Last administered on 09/09/18 08:09; Admin Dose 15 MLS/HR; Start 09/07/18 at 11:00 Fentanyl 100 ml @ 2.5 mls/hr TITRATE IV Last administered on 09/09/18 09:17; Admin Dose 5 MLS/HR; Start 09/07/18 at 11:30 Norepinephrine 250 ml @ 1.875 mls/ hr TITRATE IV Last administered on 09/08/18 02:08; Admin Dose 11.25 MLS/HR; Start 09/07/18 at 11:00 Alteplase, Recombinant (Cathflo (Activase)) 2 mg MAY REPEAT X1 PRN CATHETER IF CATHETER REMAINS OCCULUDED; Start 09/07/18 at 11:00 Amlodipine Besylate (Norvasc) 5 mg DAILY PO Last administered on 09/14/18 11:15; Admin Dose 5 MG; Start 09/10/18 at 09:00 Albuterol/ Ipratropium (Duoneb) 3 ml Q6H RESP THERAPY HHN Last administered on 09/14/18 08:51; Admin Dose 3 ML; Start 09/09/18 at 20:00 Lorazepam (Ativan) 1 mg Q6H PRN IV PSYCHOSIS Last administered on 09/14/18 02:07; Admin Dose 1 MG; Start 09/12/18 at 02:00 Dextrose 1,000 ml @ 75 mls/hr [id number] IV Last administered on 09/13/18 20:17; Admin Dose 75 MLS/HR; Start 09/12/18 at 08:00 Haloperidol (Haldol) 2 mg PRN PRN IM AGITATION; Start 09/13/18 at 06:30 Risperidone (Risperdal) 2 mg BID PO ; Start 09/14/18 at 21:00 Assessment/Plan Assessment/Plan (Daily) IMP: 1. Hypoxic respiratory failure --safely extubated on nasal cannula O2 2. Pneumoperitoneum status post chest tube which patient pulled out 3. Encephalopathy toxic metabolic resolving 4. Advanced COPD 5. Hypernatremia likely free water deficit 6. Thrombocytopenia RECS: 1. Aspiration precautions 2. Minimize O2 to keep Sp02 88-92% 3. BD's/CPT prn HAKAN OKEEFE MD Sep 14, 2018 12:20
--- NOTE | 2018-09-14 12:24 | CONS ---
Assessment/Plan Assessment/Plan Hospital Course (Demo Recall) Tx to tele, on/off agitated, nad Antimicrobials: Meropenem Indwelling: Right IJ triple-lumen catheter, Sellers Physical examination: Well-developed chronically ill-appearing cachectic elderly man. Head atraumatic normocephalic sclera nonicteric, neck is supple chest rise symmetrical breath sounds diminished bases. Heart: S1-S2. Abdomen soft bowel sounds present. Extremities without edema/cyanosis Assessment: 1. Respiratory failure/pneumonia 2. Dysphagia with ongoing aspiration 4. Pneumoperitoneum of unclear etiology, no perforation per surgical note, status post chest tube 5. Dementia 5. Anemia with progressive thrombocytopenia 6. History of non-ST elevation DE 7. Status post cardiac arrest 8. RIJ TLC Plan: Remains unchanged, continue present care, aspiration precautions, dc abx and observe Consultation Date/Type/Reason Admit Date/Time Aug 27, 2018 at 00:03 Initial Consult Date 08/27/18 Type of Consult ID Requesting Provider: VIVIANA NOLAN MD Date/Time of Note DATE: 09/14/18 TIME: 12:22 Exam/Review of Systems Exam Vitals Vital Signs Date Temp Pulse Resp B/P (MAP) Pulse Ox O2 O2 Flow FiO2 Time Delivery Rate 09/14/18 97.6 86 22 133/82 100 Nasal 11:29 (99) Cannula 09/14/18 5.0 11:05 09/14/18 36 08:51 Intake and Output 09/13/18 09/13/18 09/14/18 1414:59 22:59 06:59 IntakeIntake Total 525 ml 500 ml 300 ml OutputOutput Total 900 ml 955 ml 1500 ml BalanceBalance -375 ml -455 ml -1200 ml Results Result Diagram: 09/14/18 0545 09/14/18 0545 Results 24hrs Laboratory Tests Test 09/13/18 13:49 09/14/18 05:45 09/14/18 07:00 Sodium Level 150 H 147 H White Blood Count 4.4 #L Red Blood Count 3.52 L Hemoglobin 9.8 L Hematocrit 32.1 L Mean Corpuscular Volume 91.2 Mean Corpuscular Hemoglobin 27.8 L Mean Corpuscular 30.5 L Hemoglobin Concent Red Cell Distribution Width 16.2 H Platelet Count 65 L Mean Platelet Volume 11.1 H Immature Granulocytes % 0.500 H Neutrophils % 88.5 H Lymphocytes % 8.7 L Monocytes % 2.3 Eosinophils % 0.0 Basophils % 0.0 Nucleated Red Blood Cells % 0.0 Immature Granulocytes # 0.020 Neutrophils # 3.9 Lymphocytes # 0.4 L Monocytes # 0.1 L Eosinophils # 0.0 Basophils # 0.0 Nucleated Red Blood Cells # 0.0 Potassium Level 4.1 Chloride Level 107 Carbon Dioxide Level 39 H Anion Gap 1 L Blood Urea Nitrogen 32 H Creatinine 0.60 L Est Glomerular Filtrat > 60 Rate mL/min Glucose Level 111 Calcium Level 9.1 Phosphorus Level 3.2 Magnesium Level 2.7 H Blood Gas Specimen Source Blood arterial Arterial Blood Date Drawn 09/14/2018 8:11:03 AM Arterial Blood pH 7.387 (Temp corrected) Arterial Blood pCO2 58.4 H (Temp correct) Arterial Blood pO2 86.4 (Temp corrected) Arterial Blood HCO3 34.3 H Arterial Blood Base Excess 7.6 H Arterial Blood 94.4 L Oxygen Saturation Miller Test ACCEPTAB Arterial Blood Gas Right Radial Puncture Site Arterial 0.6 Blood Carboxyhemoglobin Arterial Blood Methemoglobin 0 Blood Gas A-a O2 Differential 102.5 H Oxyhemoglobin Percent 93.8 Blood Gas Temperature 37.0 Blood Gas Modality NASAL CANNULA FiO2 36.0 Blood Gas Notified Whom DT Blood Gas Notified Time 09/14/2018 8:29:05 AM Medications Medication Current Medications Ondansetron HCl (Zofran Inj) 4 mg Q6H PRN IV NAUSEA AND/OR VOMITING Last administered on 09/06/18 18:46; Admin Dose 4 MG; Start 08/26/18 at 23:30 Acetaminophen (Tylenol Supp) 650 mg Q4H PRN [place] PAIN LEVEL 1-3 OR FEVER; Start 08/26/18 at 23:30 Aspirin (Aspirin) 81 mg DAILY PO Last administered on 09/14/18 11:15; Admin Dose 81 MG; Start 08/29/18 at 09:00 Famotidine (Pepcid) 20 mg Q12 PO Last administered on 09/14/18 11:15; Admin Dose 20 MG; Start 08/29/18 at 21:00 Zolpidem Tartrate (Ambien) 5 mg HS PRN PO INSOMNIA Last administered on 09/10/18 20:31; Admin Dose 5 MG; Start 09/01/18 at 00:00 Guaifenesin/ Dextromethorphan (Robitussin Dm Liquid Cup) 5 ml Q6H PRN PO COUGH Last administered on 09/05/18 09:04; Admin Dose 5 ML; Start 09/01/18 at 20:00 Divalproex Sodium (Depakote) 250 mg Q8H PO Last administered on 09/14/18 11:15; Admin Dose 250 MG; Start 09/02/18 at 17:00 Morphine Sulfate (morphine) 6 mg Q4H PRN PO SEVERE PAIN LEVEL 7-10 Last administered on 09/13/18 22:18; Admin Dose 6 MG; Start 09/04/18 at 21:30 Albuterol/ Ipratropium (Duoneb) 3 ml Q3H RESP THERAPY PRN HHN SHORTNESS OF BREATH Last administered on 09/12/18 18:47; Admin Dose 3 ML; Start 09/05/18 at 20:00 Meropenem/Sodium Chloride 50 ml @ 100 mls/hr Q12 IVPB Last administered on 09/14/18 10:10; Admin Dose 100 MLS/HR; Start 09/06/18 at 15:00 Methylprednisolone Sodium Succinate (Solu-Medrol) 40 mg Q6 IV Last administered on 09/14/18 05:38; Admin Dose 40 MG; Start 09/07/18 at 12:00 Propofol 100 ml @ 1.875 mls/ hr Q12H IV Last administered on 09/09/18 08:09; Admin Dose 15 MLS/HR; Start 09/07/18 at 11:00 Fentanyl 100 ml @ 2.5 mls/hr TITRATE IV Last administered on 09/09/18 09:17; Admin Dose 5 MLS/HR; Start 09/07/18 at 11:30 Norepinephrine 250 ml @ 1.875 mls/ hr TITRATE IV Last administered on 09/08/18 02:08; Admin Dose 11.25 MLS/HR; Start 09/07/18 at 11:00 Alteplase, Recombinant (Cathflo (Activase)) 2 mg MAY REPEAT X1 PRN CATHETER IF CATHETER REMAINS OCCULUDED; Start 09/07/18 at 11:00 Amlodipine Besylate (Norvasc) 5 mg DAILY PO Last administered on 2/9/19at 11:15; Admin Dose 5 MG; Start 09/10/18 at 09:00 Albuterol/ Ipratropium (Duoneb) 3 ml Q6H RESP THERAPY HHN Last administered on 09/14/18 08:51; Admin Dose 3 ML; Start 09/09/18 at 20:00 Lorazepam (Ativan) 1 mg Q6H PRN IV PSYCHOSIS Last administered on 09/14/18 02:07; Admin Dose 1 MG; Start 09/12/18 at 02:00 Dextrose 1,000 ml @ 75 mls/hr [id number] IV Last administered on 09/13/18at 20:17; Admin Dose 75 MLS/HR; Start 09/12/18 at 08:00 Haloperidol (Haldol) 2 mg PRN PRN IM AGITATION; Start 09/13/18 at 06:30 Risperidone (Risperdal) 2 mg BID PO ; Start 09/14/18 at 21:00 AALIYAH MEZA NP Sep 14, 2018 12:24
[2018-09-14] MEDS: DEXTROSE 5% 1,000 ML IV SCH (13:00)
[2018-09-14] MEDS: RISPERIDONE 1 MG TAB PO SCH (20:26)
[2018-09-14] MEDS: morphine LIQ (10 MG/5 ML) CUP PO PRN (20:26)
[2018-09-14] MEDS: GUAIFENESIN/DM 5ML CUP PO PRN (20:36)
[2018-09-15] VITALS (19 sets, daily range): BP systolic 118–147; BP diastolic 71–123; PULSE 66–102; RESP 16–27
[2018-09-15] MEDS: METHYLPREDNISOLONE 40 MG INJ IV SCH ×5 (00:23→23:26)
[2018-09-15] MEDS: DIVALPROEX (EC) 250 MG TAB PO SCH ×2 (00:23→09:47)
[2018-09-15] MEDS: morphine LIQ (10 MG/5 ML) CUP PO PRN (00:23)
[2018-09-15] MEDS: DEXTROSE 5% 1,000 ML IV SCH ×2 (00:28→13:20)
[2018-09-15] MEDS: ALBUTEROL/IPRATROPIUM (NEB) 3 ML AMP HHN SCH ×4 (01:20→20:57)
[2018-09-15] MEDS: GUAIFENESIN/DM 5ML CUP PO PRN (05:16)
--- NOTE | 2018-09-15 07:40 | PN ---
Date/Time of Note Date/Time of Note DATE: 09/15/18 TIME: 07:39 Assessment/Plan VTE Prophylaxis Risk score (from Nsg)>0 risk: 13 SCD applied (from Nsg): Yes Pharmacological prophylaxis: other Lines/Catheters IV Catheter Type (from Nrsg): Peripheral IV Urinary Cath still in place: Yes Reason Cath still needed: urinary retention Assessment/Plan Hospital Course SUBJECTIVE: The patient remains lethargic. The patient is currently on pureed diet. No other events noted. d/w Dr Arvizu OBJECTIVE: HEENT: Head is normocephalic. NECK: Supple. HEART: Regular rate. LUNGS: Show diminished breath sounds at the base. ABDOMEN: Soft, nontender to palpation. No rebound or guarding. EXTREMITIES: Negative for clubbing, cyanosis. No edema. DERMATOLOGIC: No rashes. MUSCULOSKELETAL: No joint effusions. NEUROLOGIC: No change in exam. MEDICATIONS: The patient's medications have been reviewed. LABORATORY DATA: Shows sodium 150, potassium 4.0, bicarbonate 40, BUN 35, creatinine 0.71. White count 3.3, hemoglobin 10.0, platelet count is 69. ASSESSMENT AND PLAN: 1. Nonoliguric acute kidney injury with unknown baseline creatinine. Etiology is secondary to hemodynamics. The patient's renal function has improved. The patient does have underlying azotemia secondary to acute kidney injury, hypercatabolic state. We will continue to monitor closely. Continue supportive care, renally dose all medicines. 2. Hypernatremia, the patient has a free water deficit of approximately 2 liters. We will continue D5W drip 3. Anemia. Continue to monitor hemoglobin and hematocrit levels. 4. Mineral bone disorder, monitor calcium and phosphorus levels. 5. Diastolic heart failure. The patient appears compensated. We will continue to monitor, give intermittent diuretic therapy as needed. 6. Alkalosis. Etiology is likely compensatory due to underlying hypercapnia. We will continue to monitor. Consider repeating ABG. 7. Acute hypoxemic, hypercapnic respiratory failure. The patient remains on Venturi facemask. Continue to monitor. Follow up with pulmonary. May require reintubation. 8. Sepsis, status post shock secondary to pneumonia. Continue current antibiotic regimen. 9. Acute encephalopathy, etiology is toxic metabolic. Continue to monitor. 10. Status post cardiac arrest. 11. Status post pneumothorax. 12. Status post pneumoperitoneum. 13. Left brachial deep vein thrombosis. Continue medical management. Result Diagram: 09/14/18 0545 09/14/18 0545 Results 24hrs Laboratory Tests Test 09/15/18 02:40 Blood Gas Specimen Source Blood arterial Arterial Blood Date Drawn 09/15/2018 2:50:04 AM Arterial Blood pH (Temp corrected) 7.270 *L Arterial Blood pCO2 (Temp correct) 83.5 *H Arterial Blood pO2 (Temp corrected) 42.9 *L Arterial Blood HCO3 37.5 H Arterial Blood Base Excess 7.9 H Arterial Blood Oxygen Saturation 71.3 L Miller Test N/A Arterial Blood Gas Puncture Site Right Radial Arterial Blood Carboxyhemoglobin 0.6 Arterial Blood Methemoglobin 0.2 Blood Gas A-a O2 Differential 586.6 H Oxyhemoglobin Percent 70.7 L Blood Gas Temperature 37.0 Blood Gas Actual Respiration Rate 24 Blood Gas Modality MASK - NRB FiO2 100.0 Blood Gas Critical Value Read Back Delmi MARTINEZ Blood Gas Notified Whom [facility] Blood Gas Notified Time 09/15/2018 3:00:11 AM Exam/Review of Systems Exam Vitals Vital Signs Date Temp Pulse Resp B/P (MAP) Pulse Ox O2 O2 Flow FiO2 Time Delivery Rate 09/15/18 98.0 87 16 133/84 98 07:20 (100) 09/15/18 Simple 6.0 01:20 Mask 09/14/18 36 08:51 Intake and Output 09/14/18 09/14/18 09/15/18 1414:59 22:59 06:59 IntakeIntake Total 50 ml 460 ml 885 ml OutputOutput Total 1000 ml 950 ml BalanceBalance 50 ml -540 ml -65 ml Results Results 24hrs Laboratory Tests Test 09/15/18 02:40 Blood Gas Specimen Source Blood arterial Arterial Blood Date Drawn 09/15/2018 2:50:04 AM Arterial Blood pH (Temp corrected) 7.270 *L Arterial Blood pCO2 (Temp correct) 83.5 *H Arterial Blood pO2 (Temp corrected) 42.9 *L Arterial Blood HCO3 37.5 H Arterial Blood Base Excess 7.9 H Arterial Blood Oxygen Saturation 71.3 L Miller Test N/A Arterial Blood Gas Puncture Site Right Radial Arterial Blood Carboxyhemoglobin 0.6 Arterial Blood Methemoglobin 0.2 Blood Gas A-a O2 Differential 586.6 H Oxyhemoglobin Percent 70.7 L Blood Gas Temperature 37.0 Blood Gas Actual Respiration Rate 24 Blood Gas Modality MASK - NRB FiO2 100.0 Blood Gas Critical Value Read Back Delmi MARTINEZ Blood Gas Notified Whom [facility] Blood Gas Notified Time 09/15/2018 3:00:11 AM Medications Medication Current Medications Ondansetron HCl (Zofran Inj) 4 mg Q6H PRN IV NAUSEA AND/OR VOMITING Last administered on 09/06/18 18:46; Admin Dose 4 MG; Start 08/26/18 at 23:30 Acetaminophen (Tylenol Supp) 650 mg Q4H PRN [place] PAIN LEVEL 1-3 OR FEVER; Start 08/26/18 at 23:30 Aspirin (Aspirin) 81 mg DAILY PO Last administered on 09/14/18 11:15; Admin Dose 81 MG; Start 08/29/18 at 09:00 Famotidine (Pepcid) 20 mg Q12 PO Last administered on 09/14/18 20:25; Admin Dose 20 MG; Start 08/29/18 at 21:00 Zolpidem Tartrate (Ambien) 5 mg HS PRN PO INSOMNIA Last administered on 09/10/18 20:31; Admin Dose 5 MG; Start 09/01/18 at 00:00 Guaifenesin/ Dextromethorphan (Robitussin Dm Liquid Cup) 5 ml Q6H PRN PO COUGH Last administered on 09/15/18 05:16; Admin Dose 5 ML; Start 09/01/18 at 20:00 Divalproex Sodium (Depakote) 250 mg Q8H PO Last administered on 09/15/18 00:23; Admin Dose 250 MG; Start 09/02/18 at 17:00 Morphine Sulfate (morphine) 6 mg Q4H PRN PO SEVERE PAIN LEVEL 7-10 Last administered on 09/15/18 00:23; Admin Dose 6 MG; Start 09/04/18 at 21:30 Albuterol/ Ipratropium (Duoneb) 3 ml Q3H RESP THERAPY PRN HHN SHORTNESS OF BREATH Last administered on 09/12/18 18:47; Admin Dose 3 ML; Start 09/05/18 at 20:00 Methylprednisolone Sodium Succinate (Solu-Medrol) 40 mg Q6 IV Last administered on 2/10/19at 05:16; Admin Dose 40 MG; Start 09/07/18 at 12:00 Alteplase, Recombinant (Cathflo (Activase)) 2 mg MAY REPEAT X1 PRN CATHETER IF CATHETER REMAINS OCCULUDED; Start 09/07/18 at 11:00 Amlodipine Besylate (Norvasc) 5 mg DAILY PO Last administered on 09/14/18 11:15; Admin Dose 5 MG; Start 09/10/18 at 09:00 Albuterol/ Ipratropium (Duoneb) 3 ml Q6H RESP THERAPY HHN Last administered on 09/15/18 01:20; Admin Dose 3 ML; Start 09/09/18 at 20:00 Lorazepam (Ativan) 1 mg Q6H PRN IV PSYCHOSIS Last administered on 09/14/18 02:07; Admin Dose 1 MG; Start 09/12/18 at 02:00 Dextrose 1,000 ml @ 75 mls/hr [id number] IV Last administered on 09/15/18 00:28; Admin Dose 75 MLS/HR; Start 09/12/18 at 08:00 Haloperidol (Haldol) 2 mg PRN PRN IM AGITATION; Start 09/13/18 at 06:30 Risperidone (Risperdal) 2 mg BID PO Last administered on 09/14/18at 20:26; Admin Dose 2 MG; Start 09/14/18 at 21:00 TIM MERRILL DO Sep 15, 2018 07:40
[2018-09-15] MEDS: BALSAM PERU/CASTOR OIL 60 GM TUBE TOP SCH (09:00)
[2018-09-15] MEDS: ASPIRIN 81 MG TAB PO SCH (09:47)
[2018-09-15] MEDS: FAMOTIDINE 20 MG TAB PO SCH ×2 (09:47→21:20)
[2018-09-15] MEDS: AMLODIPINE 5 MG TAB PO SCH (09:48)
[2018-09-15] MEDS: RISPERIDONE 1 MG TAB PO SCH ×2 (09:48→21:20)
--- NOTE | 2018-09-15 11:36 | CONS ---
Consult Date/Type/Reason Admit Date/Time Aug 27, 2018 at 00:03 Initial Consult Date 08/27/18 Type of Consultation: Pulm/CCM Requesting Provider: VIVIANA NOLAN MD Date/Time of Note DATE: 09/15/18 TIME: 11:30 Subjective Events noted. Increased oxygen requirements and hypercapnia noted. Required aggressive suctioning. Objective Vitals Vital Signs Date Temp Pulse Resp B/P (MAP) Pulse Ox O2 O2 Flow FiO2 Time Delivery Rate 09/15/18 97.8 97 16 118/71 90 Mask 11:07 (87) 09/15/18 8.0 08:12 09/14/18 36 08:51 Intake and Output 09/14/18 09/14/18 09/15/18 1515:00 23:00 07:00 IntakeIntake Total 50 ml 460 ml 885 ml OutputOutput Total 1000 ml 950 ml BalanceBalance 50 ml -540 ml -65 ml Exam HEENT: Neck supple; no JVD; no LAD CVS: RRR, S1 and S2 CHEST: Coarse rhonchi b/l ABD: Soft, NT, + BS EXT: No c/c/e Results/Medications Result Diagram: 09/14/18 0545 09/14/18 0545 Results 24 hrs Laboratory Tests Test 09/15/18 02:40 09/15/18 06:30 Blood Gas Specimen Source Blood arterial Blood arterial Arterial Blood Date Drawn 09/15/2018 2:50:04 AM 09/15/2018 6:30:00 AM Arterial Blood pH (Temp corrected) 7.270 *L 7.335 L Arterial Blood pCO2 (Temp correct) 83.5 *H 65.9 H Arterial Blood pO2 (Temp corrected) 42.9 *L 64.3 L Arterial Blood HCO3 37.5 H 34.4 H Arterial Blood Base Excess 7.9 H 6.7 H Arterial Blood Oxygen Saturation 71.3 L 89.6 L Miller Test N/A N/A Arterial Blood Gas Puncture Site Right Radial Right Radial Arterial Blood Carboxyhemoglobin 0.6 0.2 Arterial Blood Methemoglobin 0.2 0.1 Blood Gas A-a O2 Differential 586.6 H 298.3 H Oxyhemoglobin Percent 70.7 L 89.3 L Blood Gas Temperature 37.0 37.0 Blood Gas Actual Respiration Rate 24 24 Blood Gas Modality MASK - NRB MASK - SIMPLE FiO2 100.0 61.0 Blood Gas Critical Value Read Back Delmi MARTINEZ Blood Gas Notified [facility] Blood Gas Notified Time 09/15/2018 3:00:11 AM 09/15/2018 6:35:00 AM Home Meds Reported Medications Docusate Sodium* (Colace*) 100 Mg Capsule, 100 MG PO Q24H PRN for CONSTIPATION, #30 CAP 08/26/18 Polyethylene Glycol* (Miralax*) 17 Gm Powd.pack, 17 GM PO DAILY PRN for NEEDED, #30 PACKET 08/26/18 Acetaminophen* (Acetaminophen*) 325 Mg Tablet, 650 MG PO Q4H PRN for PAIN - 05/15, #30 TAB AND FEVER>101F 08/26/18 Sennosides* (Senna Lax*) 8.6 Mg Tablet, 1 TAB PO NEEDED, TAB 08/26/18 Mv,Minerals/Fa/Lycopene/Ginkgo (ONE DAILY MEN'S 50+ TABLET) 1 Each Tablet, 1 EACH PO DAILY, TAB 08/26/18 Divalproex Sodium* (Depakote*) 125 Mg Tablet.dr, 250 MG PO Q8H, #90 TAB 08/26/18 Quetiapine Fumarate* (Seroquel*) 50 Mg Tablet, 50 MG PO Q8H, TAB 08/26/18 Ipratropium-Albuterol (Ipratropium-Albuterol) 0.5-3 Mg/3 Ml Ampul.neb, 3 ML INHALATION Q4H PRN for WHEEZING AND SOB, #30 VIAL 08/26/18 Budesonide-Formoterol Fumarate* (Symbicort*) 160-4.5 Hfa.aer.ad, 2 PUFF INHALATION BID, #1 EACH 08/26/18 Medications Current Medications Ondansetron HCl (Zofran Inj) 4 mg Q6H PRN IV NAUSEA AND/OR VOMITING Last administered on 09/06/18at 18:46; Admin Dose 4 MG; Start 08/26/18 at 23:30 Acetaminophen (Tylenol Supp) 650 mg Q4H PRN [place] PAIN LEVEL 1-3 OR FEVER; Start 08/26/18 at 23:30 Aspirin (Aspirin) 81 mg DAILY PO Last administered on 09/15/18at 09:47; Admin Dose 81 MG; Start 08/29/18 at 09:00 Famotidine (Pepcid) 20 mg Q12 PO Last administered on 09/15/18 09:47; Admin Dose 20 MG; Start 08/29/18 at 21:00 Zolpidem Tartrate (Ambien) 5 mg HS PRN PO INSOMNIA Last administered on 09/10/18 20:31; Admin Dose 5 MG; Start 09/01/18 at 00:00 Guaifenesin/ Dextromethorphan (Robitussin Dm Liquid Cup) 5 ml Q6H PRN PO COUGH Last administered on 09/15/18 05:16; Admin Dose 5 ML; Start 09/01/18 at 20:00 Divalproex Sodium (Depakote) 250 mg Q8H PO Last administered on 09/15/18 09:47; Admin Dose 250 MG; Start 09/02/18 at 17:00 Morphine Sulfate (morphine) 6 mg Q4H PRN PO SEVERE PAIN LEVEL 7-10 Last administered on 09/15/18 00:23; Admin Dose 6 MG; Start 09/04/18 at 21:30 Albuterol/ Ipratropium (Duoneb) 3 ml Q3H RESP THERAPY PRN HHN SHORTNESS OF BREATH Last administered on 09/12/18 18:47; Admin Dose 3 ML; Start 09/05/18 at 20:00 Methylprednisolone Sodium Succinate (Solu-Medrol) 40 mg Q6 IV Last administered on 09/15/18 05:16; Admin Dose 40 MG; Start 09/07/18 at 12:00 Alteplase, Recombinant (Cathflo (Activase)) 2 mg MAY REPEAT X1 PRN CATHETER IF CATHETER REMAINS OCCULUDED; Start 09/07/18 at 11:00 Amlodipine Besylate (Norvasc) 5 mg DAILY PO Last administered on 09/15/18 09:48; Admin Dose 5 MG; Start 09/10/18 at 09:00 Albuterol/ Ipratropium (Duoneb) 3 ml Q6H RESP THERAPY HHN Last administered on 09/15/18 08:02; Admin Dose 3 ML; Start 09/09/18 at 20:00 Lorazepam (Ativan) 1 mg Q6H PRN IV PSYCHOSIS Last administered on 2/9/19at 02:07; Admin Dose 1 MG; Start 09/12/18 at 02:00 Dextrose 1,000 ml @ 75 mls/hr [id number] IV Last administered on 09/15/18at 00:28; Admin Dose 75 MLS/HR; Start 09/12/18 at 08:00 Haloperidol (Haldol) 2 mg PRN PRN IM AGITATION; Start 09/13/18 at 06:30 Risperidone (Risperdal) 2 mg BID PO Last administered on 09/15/18at 09:48; Admin Dose 2 MG; Start 09/14/18 at 21:00 Assessment/Plan Assessment/Plan (Daily) IMP: 1. Acute on chronic hypoxic and hypercapnic respiratory failure--worse overnight with increased mucus plugging. 2. Pneumoperitoneum status post chest tube which patient pulled out 3. Encephalopathy toxic metabolic resolving 4. Advanced COPD 5. Hypernatremia likely free water deficit 6. Thrombocytopenia 7. Anemia RECS: 1. Transfer to ICU 2. Maintain oxygen to keep Sp02 88-92% 3. Aggressive suctioning/CPT 4. NPO 5. Follow ABG/CXR 6. Strict aspiration precautions Case d/w 6W and SDC TEACHERmedical staff coordinator 40 min cc time HAKAN OKEEFE MD Sep 15, 2018 11:36
--- NOTE | 2018-09-15 12:10 | PN ---
Date/Time of Note Date/Time of Note DATE: 09/15/18 TIME: 12:09 Assessment/Plan VTE Prophylaxis Risk score (from [facility])>0 risk: 8 SCD applied (from [facility]): Yes Pharmacological prophylaxis: LMWH Lines/Catheters IV Catheter Type (from [facility]): Peripheral IV Urinary Cath still in place: Yes Reason Cath still needed: skin wounds contaminated by urine Assessment/Plan Hospital Course -Hypoxic respiratory failure requiring mechanical ventilation, extubated. Dr. Mejias is following in pulmonology consultation. -Sepsis with shock, resolving. Dr. Sutton is following in infection disease consultation. -Status post cardiac arrest. Dr. Hernández is following in cardiology c onsultation. -Left-sided pneumothorax, status post left side chest tube placement, s/p self d/c CT. -S/p pneumoperitoneum most likely due to cardiac arrest, resolved. Dr. Rivas is following in general surgery consultation. -Left axillary and brachial DVT, LUE swelling subsided, was on Lovenox which is currently held due to thrombocytopenia -Left lower lobe pneumonia -Severe emphysema -JEREMÍAS with possible chronic kidney disease. Dr Arvizu is following in nephrology consultation. -Schizoaffective disorder depressed type. Psychiatric consult is appreciated, continue Risperdal Depakote Result Diagram: 09/14/18 0545 09/14/18 0545 Results 24hrs Laboratory Tests Test 09/15/18 02:40 09/15/18 06:30 Blood Gas Specimen Source Blood arterial Blood arterial Arterial Blood Date Drawn 09/15/2018 2:50:04 AM 09/15/2018 6:30:00 AM Arterial Blood pH (Temp corrected) 7.270 *L 7.335 L Arterial Blood pCO2 (Temp correct) 83.5 *H 65.9 H Arterial Blood pO2 (Temp corrected) 42.9 *L 64.3 L Arterial Blood HCO3 37.5 H 34.4 H Arterial Blood Base Excess 7.9 H 6.7 H Arterial Blood Oxygen Saturation 71.3 L 89.6 L Miller Test N/A N/A Arterial Blood Gas Puncture Site Right Radial Right Radial Arterial Blood Carboxyhemoglobin 0.6 0.2 Arterial Blood Methemoglobin 0.2 0.1 Blood Gas A-a O2 Differential 586.6 H 298.3 H Oxyhemoglobin Percent 70.7 L 89.3 L Blood Gas Temperature 37.0 37.0 Blood Gas Actual Respiration Rate 24 24 Blood Gas Modality MASK - NRB MASK - SIMPLE FiO2 100.0 61.0 Blood Gas Critical Value Read Back Delmi MARTINEZ Blood Gas Notified [facility]om [facility] Blood Gas Notified Time 09/15/2018 3:00:11 AM 09/15/2018 6:35:00 AM Subjective 24 Hr Interval Summary Free Text/Dictation Patient appear tachypneic, on face mask currently Exam/Review of Systems Exam Vitals Vital Signs Date Temp Pulse Resp B/P (MAP) Pulse Ox O2 O2 Flow FiO2 Time Delivery Rate 09/15/18 97.8 97 16 118/71 90 Mask 11:07 (87) 09/15/18 8.0 08:12 09/14/18 36 08:51 Intake and Output 09/14/18 09/14/18 09/15/18 1515:00 23:00 07:00 IntakeIntake Total 50 ml 460 ml 885 ml OutputOutput Total 1000 ml 950 ml BalanceBalance 50 ml -540 ml -65 ml Constitutional: well developed Head: normocephalic, atraumatic Neck: supple Respiratory: diminished breath sounds Cardiovascular: regular rate and rhythm Gastrointestinal: soft, non-tender Extremities: normal pulses Results Results 24hrs Laboratory Tests Test 09/15/18 02:40 09/15/18 06:30 Blood Gas Specimen Source Blood arterial Blood arterial Arterial Blood Date Drawn 09/15/2018 2:50:04 AM 09/15/2018 6:30:00 AM Arterial Blood pH (Temp corrected) 7.270 *L 7.335 L Arterial Blood pCO2 (Temp correct) 83.5 *H 65.9 H Arterial Blood pO2 (Temp corrected) 42.9 *L 64.3 L Arterial Blood HCO3 37.5 H 34.4 H Arterial Blood Base Excess 7.9 H 6.7 H Arterial Blood Oxygen Saturation 71.3 L 89.6 L Miller Test N/A N/A Arterial Blood Gas Puncture Site Right Radial Right Radial Arterial Blood Carboxyhemoglobin 0.6 0.2 Arterial Blood Methemoglobin 0.2 0.1 Blood Gas A-a O2 Differential 586.6 H 298.3 H Oxyhemoglobin Percent 70.7 L 89.3 L Blood Gas Temperature 37.0 37.0 Blood Gas Actual Respiration Rate 24 24 Blood Gas Modality MASK - NRB MASK - SIMPLE FiO2 100.0 61.0 Blood Gas Critical Value Read Back Delmi MARTINEZ Blood Gas Notified [facility]om [facility] Blood Gas Notified Time 09/15/2018 3:00:11 AM 09/15/2018 6:35:00 AM Medications Medication Current Medications Ondansetron HCl (Zofran Inj) 4 mg Q6H PRN IV NAUSEA AND/OR VOMITING Last administered on 09/06/18 18:46; Admin Dose 4 MG; Start 08/26/18 at 23:30 Acetaminophen (Tylenol Supp) 650 mg Q4H PRN [place] PAIN LEVEL 1-3 OR FEVER; Start 08/26/18 at 23:30 Aspirin (Aspirin) 81 mg DAILY PO Last administered on 09/15/18 09:47; Admin Dose 81 MG; Start 08/29/18 at 09:00 Famotidine (Pepcid) 20 mg Q12 PO Last administered on 09/15/18 09:47; Admin Dose 20 MG; Start 08/29/18 at 21:00 Zolpidem Tartrate (Ambien) 5 mg HS PRN PO INSOMNIA Last administered on 09/10/18 20:31; Admin Dose 5 MG; Start 09/01/18 at 00:00 Guaifenesin/ Dextromethorphan (Robitussin Dm Liquid Cup) 5 ml Q6H PRN PO COUGH Last administered on 09/15/18 05:16; Admin Dose 5 ML; Start 09/01/18 at 20:00 Divalproex Sodium (Depakote) 250 mg Q8H PO Last administered on 09/15/18 09:47; Admin Dose 250 MG; Start 09/02/18 at 17:00 Morphine Sulfate (morphine) 6 mg Q4H PRN PO SEVERE PAIN LEVEL 7-10 Last administered on 09/15/18 00:23; Admin Dose 6 MG; Start 09/04/18 at 21:30 Albuterol/ Ipratropium (Duoneb) 3 ml Q3H RESP THERAPY PRN HHN SHORTNESS OF BREATH Last administered on 09/12/18 18:47; Admin Dose 3 ML; Start 09/05/18 at 20:00 Methylprednisolone Sodium Succinate (Solu-Medrol) 40 mg Q6 IV Last administered on 2/10/19at 05:16; Admin Dose 40 MG; Start 09/07/18 at 12:00 Alteplase, Recombinant (Cathflo (Activase)) 2 mg MAY REPEAT X1 PRN CATHETER IF CATHETER REMAINS OCCULUDED; Start 09/07/18 at 11:00 Amlodipine Besylate (Norvasc) 5 mg DAILY PO Last administered on 09/15/18at 0 9:48; Admin Dose 5 MG; Start 09/10/18 at 09:00 Albuterol/ Ipratropium (Duoneb) 3 ml Q6H RESP THERAPY HHN Last administered on 09/15/18 08:02; Admin Dose 3 ML; Start 09/09/18 at 20:00 Lorazepam (Ativan) 1 mg Q6H PRN IV PSYCHOSIS Last administered on 09/14/18at 02:07; Admin Dose 1 MG; Start 09/12/18 at 02:00 Dextrose 1,000 ml @ 75 mls/hr [id number] IV Last administered on 09/15/18at 00:28; Admin Dose 75 MLS/HR; Start 09/12/18 at 08:00 Haloperidol (Haldol) 2 mg PRN PRN IM AGITATION; Start 09/13/18 at 06:30 Risperidone (Risperdal) 2 mg BID PO Last administered on 09/15/18at 09:48; Admin Dose 2 MG; Start 09/14/18 at 21:00 WENDY LOVE Sep 15, 2018 12:10
--- NOTE | 2018-09-15 19:12 | CONS ---
Assessment/Plan Assessment/Plan Hospital Course (Demo Recall) Patient was transferred to ICU secondary to respiratory distress. Currently alert awake and comfortable on 5 L nasal cannula, no fevers overnight. He is off antibiotics since yesterday. Indwelling: Right IJ triple-lumen catheter, Sellers Physical examination: Well-developed chronically ill-appearing cachectic elderly man. Head atraumatic normocephalic sclera nonicteric, neck is supple chest rise symmetrical breath sounds diminished bases. Heart: S1-S2. Abdomen soft bowel sounds present. Extremities without edema/cyanosis Assessment: 1. Respiratory failure, s/p pneumonia 2. Dysphagia with ongoing aspiration 4. Pneumoperitoneum of unclear etiology, no perforation per surgical note, status post chest tube 5. Dementia 5. Anemia with progressive thrombocytopenia 6. History of non-ST elevation [place] 7. Status post cardiac arrest 8. RIJ TLC Plan: Stable, a continue present care, aspiration precautions and aggressive pulmonary toilet Consultation Date/Type/Reason Admit Date/Time Aug 27, 2018 at 00:03 Initial Consult Date 08/27/18 Type of Consult ID Requesting Provider: VIVIANA NOLAN MD Date/Time of Note DATE: 09/15/18 TIME: 19:11 Exam/Review of Systems Exam Vitals Vital Signs Date Temp Pulse Resp B/P (MAP) Pulse Ox O2 O2 Flow FiO2 Time Delivery Rate 09/15/18 92 22 137/106 99 Nasal 5.0 18:00 (116) Cannula 09/15/18 98.2 14:00 09/14/18 36 08:51 Intake and Output 09/14/18 09/14/18 09/15/18 1515:00 23:00 07:00 IntakeIntake Total 50 ml 460 ml 885 ml OutputOutput Total 1000 ml 950 ml BalanceBalance 50 ml -540 ml -65 ml Results Result Diagram: 09/14/18 0545 09/14/18 0545 Results 24hrs Laboratory Tests Test 09/15/18 02:40 09/15/18 06:30 Blood Gas Specimen Source Blood arterial Blood arterial Arterial Blood Date Drawn 09/15/2018 2:50:04 AM 09/15/2018 6:30:00 AM Arterial Blood pH (Temp corrected) 7.270 *L 7.335 L Arterial Blood pCO2 (Temp correct) 83.5 *H 65.9 H Arterial Blood pO2 (Temp corrected) 42.9 *L 64.3 L Arterial Blood HCO3 37.5 H 34.4 H Arterial Blood Base Excess 7.9 H 6.7 H Arterial Blood Oxygen Saturation 71.3 L 89.6 L Miller Test N/A N/A Arterial Blood Gas Puncture Site Right Radial Right Radial Arterial Blood Carboxyhemoglobin 0.6 0.2 Arterial Blood Methemoglobin 0.2 0.1 Blood Gas A-a O2 Differential 586.6 H 298.3 H Oxyhemoglobin Percent 70.7 L 89.3 L Blood Gas Temperature 37.0 37.0 Blood Gas Actual Respiration Rate 24 24 Blood Gas Modality MASK - NRB MASK - SIMPLE FiO2 100.0 61.0 Blood Gas Critical Value Read Back Delmi MARTINEZ Blood Gas Notified [facility]om [facility] Blood Gas Notified Time 09/15/2018 3:00:11 AM 09/15/2018 6:35:00 AM Medications Medication Current Medications Ondansetron HCl (Zofran Inj) 4 mg Q6H PRN IV NAUSEA AND/OR VOMITING Last administered on 09/06/18 18:46; Admin Dose 4 MG; Start 08/26/18 at 23:30 Acetaminophen (Tylenol Supp) 650 mg Q4H PRN [place] PAIN LEVEL 1-3 OR FEVER; Start 08/26/18 at 23:30 Aspirin (Aspirin) 81 mg DAILY PO Last administered on 09/15/18 09:47; Admin Dose 81 MG; Start 08/29/18 at 09:00 Famotidine (Pepcid) 20 mg Q12 PO Last administered on 09/15/18 09:47; Admin Dose 20 MG; Start 08/29/18 at 21:00 Zolpidem Tartrate (Ambien) 5 mg HS PRN PO INSOMNIA Last administered on 09/10/18 20:31; Admin Dose 5 MG; Start 09/01/18 at 00:00 Guaifenesin/ Dextromethorphan (Robitussin Dm Liquid Cup) 5 ml Q6H PRN PO COUGH Last administered on 09/15/18 05:16; Admin Dose 5 ML; Start 09/01/18 at 20:00 Divalproex Sodium (Depakote) 250 mg Q8H PO Last administered on 09/15/18 09:47; Admin Dose 250 MG; Start 09/02/18 at 17:00 Morphine Sulfate (morphine) 6 mg Q4H PRN PO SEVERE PAIN LEVEL 7-10 Last administered on 09/15/18 00:23; Admin Dose 6 MG; Start 09/04/18 at 21:30 Albuterol/ Ipratropium (Duoneb) 3 ml Q3H RESP THERAPY PRN HHN SHORTNESS OF BREATH Last administered on 09/12/18 18:47; Admin Dose 3 ML; Start 09/05/18 at 20:00 Methylprednisolone Sodium Succinate (Solu-Medrol) 40 mg Q6 IV Last administered on 09/15/18 18:08; Admin Dose 40 MG; Start 09/07/18 at 12:00 Alteplase, Recombinant (Cathflo (Activase)) 2 mg MAY REPEAT X1 PRN CATHETER IF CATHETER REMAINS OCCULUDED; Start 09/07/18 at 11:00 Amlodipine Besylate (Norvasc) 5 mg DAILY PO Last administered on 09/15/18 09:48; Admin Dose 5 MG; Start 09/10/18 at 09:00 Albuterol/ Ipratropium (Duoneb) 3 ml Q6H RESP THERAPY HHN Last administered on 09/15/18 14:56; Admin Dose 3 ML; Start 09/09/18 at 20:00 Lorazepam (Ativan) 1 mg Q6H PRN IV PSYCHOSIS Last administered on 09/14/18 02:07; Admin Dose 1 MG; Start 09/12/18 at 02:00 Dextrose 1,000 ml @ 75 mls/hr [id number] IV Last administered on 09/15/18 00:28; Admin Dose 75 MLS/HR; Start 09/12/18 at 08:00; Status Hold Haloperidol (Haldol) 2 mg PRN PRN IM AGITATION; Start 09/13/18 at 06:30 Risperidone (Risperdal) 2 mg BID PO Last administered on 09/15/18 09:48; Admin Dose 2 MG; Start 09/14/18 at 21:00 AALIYAH MEZA NP Sep 15, 2018 19:12
[2018-09-15] MEDS: DIVALPROEX SPRINKLE 125 MG CAP PO SCH (21:00)
[2018-09-15] MEDS: LORAZEPAM 2 MG INJ IV PRN (23:26)
[2018-09-16] VITALS (25 sets, daily range): BP systolic 117–162; BP diastolic 75–139; PULSE 78–121; RESP 18–33
[2018-09-16] MEDS: ALBUTEROL/IPRATROPIUM (NEB) 3 ML AMP HHN SCH ×4 (01:38→20:03)
[2018-09-16] MEDS: DIVALPROEX SPRINKLE 125 MG CAP PO SCH ×3 (04:40→20:48)
[2018-09-16] MEDS: HALOPERIDOL 5 MG INJ IM PRN (04:41)
[2018-09-16] MEDS: METHYLPREDNISOLONE 40 MG INJ IV SCH ×4 (05:53→23:46)
--- NOTE | 2018-09-16 08:53 | PN ---
DATE: 09/16/2018 SUBJECTIVE: The patient remains confused. No other acute events noted overnight. No hemoptysis, he matemesis, hematochezia. OBJECTIVE: VITAL SIGNS: Blood pressure is 142/119, respirations 22, pulse 103, temperature 98.6. HEENT: Head is normocephalic. NECK: Supple. HEART: Regular rate. LUNGS: Show diminished breath sounds at the base. ABDOMEN: Soft, nontender to palpation without rebound or guarding. EXTREMITIES: Negative for clubbing, cyanosis, no edema. DERMATOLOGIC: No rashes. MUSCULOSKELETAL: No joint effusion. NEUROLOGIC: No change in exam. MEDICATIONS: Reviewed. LABORATORY DATA: Shows sodium 146, BUN 38, creatinine 0.77, hemoglobin A1c 2.8. White count 6.6, he moglobin 10.3, platelet count is 53. IMAGING: Chest x-ray was reviewed. No significant change. ASSESSMENT AND PLAN: 1. Nonoliguric acute kidney injury with unknown baseline creatinine. Etiology of acute kidney injur y is secondary to hemodynamics. Renal function has improved. The patient does have an underlying az otemia secondary to acute kidney injury, hypercatabolic state. Will continue to monitor, continue cruz pportive care, renally dose all meds, avoid nephrotoxins. 2. Hypernatremia. The patient has a free water deficit approximately 1.5 liters. Will continue to encourage free water intake. Will give the patient 1 liter of D5 water. 3. Anemia. Monitor hemoglobin and hematocrit. 4. Mineral bone disorder of calcium and phosphorus levels. 5. Diastolic heart failure. The patient appears compensated. Continue to monitor, give intermitten t diuretic therapy as needed. 6. Alkalosis, likely compensatory due to underlying hypercapnia. Continue to monitor. 7. Acute hypoxemic hypercapnic respiratory failure. The patient is currently on nasal cannula and s table. Continue to monitor. Follow up with pulmonary. 8. Sepsis, status post shock secondary to pneumonia. Continue current antibiotic regimen. 9. Acute encephalopathy, etiology toxic metabolic. Continue to monitor. 10. Left brachial deep vein thrombosis. Continue medical management. 11. Status post cardiac arrest. 12. Status post pneumothorax. 13. Status post pneumoperitoneum. Dictated By: JOE CHU/NTS Conf#: [id number] DID#: [id number] CC: WENDY LOVE MD;*EndCC*
--- NOTE | 2018-09-16 09:45 | CONS ---
Consult Date/Type/Reason Admit Date/Time Aug 27, 2018 at 00:03 Initial Consult Date 08/27/18 Type of Consult Pulmonary Requesting Provider: VIVIANA NOLAN MD Date/Time of Note DATE: 09/16/18 TIME: 09:26 Subjective Patient better this morning. Awake alert comfortable no respiratory distress on nasal cannula O2. Objective Vital Signs Date Temp Pulse Resp B/P (MAP) Pulse Ox O2 O2 Flow FiO2 Time Delivery Rate 09/16/18 6.0 08:48 09/16/18 100 22 100 Nasal 08:48 Cannula 09/16/18 142/119 06:00 (127) 09/16/18 98.6 04:00 09/14/18 36 08:51 Intake and Output 09/15/18 09/15/18 09/16/18 1515:00 23:00 07:00 IntakeIntake Total 820 ml 0 ml OutputOutput Total 400 ml 820 ml 675 ml BalanceBalance -400 ml 0 ml -675 ml Exam GENERAL: VITAL SIGNS: per chart NECK: Supple. No JVD or lymphadenopathy. CARDIAC EXAM: S1, S2. No added sounds or murmurs. CHEST: clear bilaterally, No added sounds, rales or wheezes ABDOMEN: Soft, nontender. No guarding or rebound. EXTREMITIES: No cyanosis, clubbing or edema. NEUROLOGIC: Generalized weakness. No focal deficits. Vent Setting Ventilator Support Mode: SPONT Fraction of Inspired Oxygen pe: 36 Positive End Expiratory Pressu: 5.0 Results/Medications Result Diagram: 09/16/18 0415 09/16/18 0415 Results 24 hrs Laboratory Tests Test 09/16/18 04:15 09/16/18 05:00 White Blood Count 6.6 # Red Blood Count 3.69 L Hemoglobin 10.3 L Hematocrit 33.8 L Mean Corpuscular Volume 91.6 Mean Corpuscular Hemoglobin 27.9 L Mean Corpuscular Hemoglobin Concent 30.5 L Red Cell Distribution Width 15.9 H Platelet Count 53 L Mean Platelet Volume 12.2 H Immature Granulocytes % 1.200 H Neutrophils % 91.3 H Lymphocytes % 5.9 L Monocytes % 1.2 Eosinophils % 0.2 Basophils % 0.2 Nucleated Red Blood Cells % 0.0 Immature Granulocytes # 0.080 H Neutrophils # 6.0 Lymphocytes # 0.4 L Monocytes # 0.1 L Eosinophils # 0.0 Basophils # 0.0 Nucleated Red Blood Cells # 0.0 Sodium Level 146 H Potassium Level 4.6 Chloride Level 108 Carbon Dioxide Level 40 H Anion Gap -2 L Blood Urea Nitrogen 38 H Creatinine 0.77 Est Glomerular Filtrat Rate mL/min > 60 Glucose Level 206 Lactic Acid Level 2.8 *H Calcium Level 9.3 Blood Gas Specimen Source Blood arterial Arterial Blood Date Drawn 09/16/2018 5:00:10 AM Arterial Blood pH (Temp corrected) 7.495 H Arterial Blood pCO2 (Temp correct) 48.5 H Arterial Blood pO2 (Temp corrected) 81.1 Arterial Blood HCO3 36.5 H Arterial Blood Base Excess 11.8 H Arterial Blood Oxygen Saturation 96.0 Miller Test ACCEPTAB Arterial Blood Gas Puncture Site Left Radial Arterial Blood Carboxyhemoglobin 0.4 Arterial Blood Methemoglobin 0.2 Blood Gas A-a O2 Differential 141.1 H Oxyhemoglobin Percent 95.4 Blood Gas Temperature 37.0 Blood Gas Modality NASAL CANNULA FiO2 39.0 Blood Gas Notified Whom MA Blood Gas Notified Time 09/16/2018 5:07:46 AM Medications Current Medications Ondansetron HCl (Zofran Inj) 4 mg Q6H PRN IV NAUSEA AND/OR VOMITING Last administered on 09/06/18 18:46; Admin Dose 4 MG; Start 08/26/18 at 23:30 Acetaminophen (Tylenol Supp) 650 mg Q4H PRN [place] PAIN LEVEL 1-3 OR FEVER; Start 08/26/18 at 23:30 Aspirin (Aspirin) 81 mg DAILY PO Last administered on 09/15/18 09:47; Admin Dose 81 MG; Start 08/29/18 at 09:00 Famotidine (Pepcid) 20 mg Q12 PO Last administered on 09/15/18 21:20; Admin Dose 20 MG; Start 08/29/18 at 21:00 Zolpidem Tartrate (Ambien) 5 mg HS PRN PO INSOMNIA Last administered on 09/10/18 20:31; Admin Dose 5 MG; Start 09/01/18 at 00:00 Guaifenesin/ Dextromethorphan (Robitussin Dm Liquid Cup) 5 ml Q6H PRN PO COUGH Last administered on 09/15/18 05:16; Admin Dose 5 ML; Start 09/01/18 at 20:00 Morphine Sulfate (morphine) 6 mg Q4H PRN PO SEVERE PAIN LEVEL 7-10 Last administered on 09/15/18 00:23; Admin Dose 6 MG; Start 09/04/18 at 21:30 Albuterol/ Ipratropium (Duoneb) 3 ml Q3H RESP THERAPY PRN HHN SHORTNESS OF BREATH Last administered on 09/12/18 18:47; Admin Dose 3 ML; Start 09/05/18 at 20:00 Methylprednisolone Sodium Succinate (Solu-Medrol) 40 mg Q6 IV Last administered on 09/16/18 05:53; Admin Dose 40 MG; Start 09/07/18 at 12:00 Alteplase, Recombinant (Cathflo (Activase)) 2 mg MAY REPEAT X1 PRN CATHETER IF CATHETER REMAINS OCCULUDED; Start 09/07/18 at 11:00 Amlodipine Besylate (Norvasc) 5 mg DAILY PO Last administered on 09/15/18 09:48; Admin Dose 5 MG; Start 09/10/18 at 09:00 Albuterol/ Ipratropium (Duoneb) 3 ml Q6H RESP THERAPY HHN Last administered on 09/16/18 08:46; Admin Dose 3 ML; Start 09/09/18 at 20:00 Lorazepam (Ativan) 1 mg Q6H PRN IV PSYCHOSIS Last administered on 09/15/18 23:26; Admin Dose 1 MG; Start 09/12/18 at 02:00 Dextrose 1,000 ml @ 50 mls/hr Q20H IV Last administered on 09/15/18 00:28; Admin Dose 75 MLS/HR; Start 09/12/18 at 08:00; Status Hold Haloperidol (Haldol) 2 mg PRN PRN IM AGITATION Last administered on 09/16/18 04:41; Admin Dose 2 MG; Start 09/13/18 at 06:30 Risperidone (Risperdal) 2 mg BID PO Last administered on 09/15/18 21:20; Admin Dose 2 MG; Start 09/14/18 at 21:00 Divalproex Sodium (Depakote Sprinkle) 250 mg Q8H PO Last administered on 09/16/18 04:40; Admin Dose 250 MG; Start 09/15/18 at 21:00 Assessment/Plan Hospital Course (Demo Recall) IMP: 1. Acute on chronic hypoxic and hypercapnic respiratory failure--worse overnight with increased mucus plugging. 2. Pneumoperitoneum status post chest tube which patient pulled out 3. Encephalopathy toxic metabolic resolving 4. Advanced COPD 5. Hypernatremia likely free water deficit 6. Thrombocytopenia 7. Anemia RECS: 1. Continue ICU care 2. Maintain oxygen to keep Sp02 88-92% 3. Aggressive suctioning/CPT 4. NPO 5. Follow ABG/CXR 6. Strict aspiration precautions KHUSHI PATTON MD, [facility] Sep 16, 2018 09:44
[2018-09-16] MEDS: ASPIRIN 81 MG TAB PO SCH (10:23)
[2018-09-16] MEDS: FAMOTIDINE 20 MG TAB PO SCH ×2 (10:24→20:49)
[2018-09-16] MEDS: AMLODIPINE 5 MG TAB PO SCH (10:24)
[2018-09-16] MEDS: RISPERIDONE 1 MG TAB PO SCH ×2 (10:25→20:49)
--- NOTE | 2018-09-16 11:15 | CONS ---
Assessment/Plan Assessment/Plan Hospital Course (Demo Recall) Alert, comfortable on 4L nc, no fevers, no SOB Indwelling: Right IJ triple-lumen catheter, Sellers Physical examination: Well-developed chronically ill-appearing cachectic elderly man. Head atraumatic normocephalic sclera nonicteric, neck is supple chest rise symmetrical breath sounds diminished bases. Heart: S1-S2. Abdomen soft bowel sounds present. Extremities without edema/cyanosis Assessment: 1. Respiratory failure, s/p pneumonia 2. Dysphagia with ongoing aspiration 4. Pneumoperitoneum of unclear etiology, no perforation per surgical note, status post chest tube 5. Dementia 5. Anemia with progressive thrombocytopenia 6. History of non-ST elevation NC 7. Status post cardiac arrest 8. RIJ TLC Plan: Remains stable, continue present care, aspiration precautions, observe off abx Consultation Date/Type/Reason Admit Date/Time Aug 27, 2018 at 00:03 Initial Consult Date 08/27/18 Type of Consult ID Requesting Provider: VIVIANA NOLAN MD Date/Time of Note DATE: 09/16/18 TIME: 11:14 Exam/Review of Systems Exam Vitals Vital Signs Date Temp Pulse Resp B/P (MAP) Pulse Ox O2 O2 Flow FiO2 Time Delivery Rate 09/16/18 97 3.0 11:12 09/16/18 98 23 120/88 Nasal 10:00 (99) Cannula 09/16/18 36 09:45 09/16/18 97.6 08:00 Intake and Output 09/15/18 09/15/18 09/16/18 1515:00 23:00 07:00 IntakeIntake Total 820 ml 0 ml OutputOutput Total 400 ml 820 ml 775 ml BalanceBalance -400 ml 0 ml -775 ml Results Result Diagram: 09/16/18 0415 09/16/18 0415 Results 24hrs Laboratory Tests Test 09/16/18 04:15 09/16/18 05:00 White Blood Count 6.6 # Red Blood Count 3.69 L Hemoglobin 10.3 L Hematocrit 33.8 L Mean Corpuscular Volume 91.6 Mean Corpuscular Hemoglobin 27.9 L Mean Corpuscular Hemoglobin Concent 30.5 L Red Cell Distribution Width 15.9 H Platelet Count 53 L Mean Platelet Volume 12.2 H Immature Granulocytes % 1.200 H Neutrophils % 91.3 H Lymphocytes % 5.9 L Monocytes % 1.2 Eosinophils % 0.2 Basophils % 0.2 Nucleated Red Blood Cells % 0.0 Immature Granulocytes # 0.080 H Neutrophils # 6.0 Lymphocytes # 0.4 L Monocytes # 0.1 L Eosinophils # 0.0 Basophils # 0.0 Nucleated Red Blood Cells # 0.0 Sodium Level 146 H Potassium Level 4.6 Chloride Level 108 Carbon Dioxide Level 40 H Anion Gap -2 L Blood Urea Nitrogen 38 H Creatinine 0.77 Est Glomerular Filtrat Rate mL/min > 60 Glucose Level 206 Lactic Acid Level 2.8 *H Calcium Level 9.3 Blood Gas Specimen Source Blood arterial Arterial Blood Date Drawn 09/16/2018 5:00:10 AM Arterial Blood pH (Temp corrected) 7.495 H Arterial Blood pCO2 (Temp correct) 48.5 H Arterial Blood pO2 (Temp corrected) 81.1 Arterial Blood HCO3 36.5 H Arterial Blood Base Excess 11.8 H Arterial Blood Oxygen Saturation 96.0 Miller Test ACCEPTAB Arterial Blood Gas Puncture Site Left Radial Arterial Blood Carboxyhemoglobin 0.4 Arterial Blood Methemoglobin 0.2 Blood Gas A-a O2 Differential 141.1 H Oxyhemoglobin Percent 95.4 Blood Gas Temperature 37.0 Blood Gas Modality NASAL CANNULA FiO2 39.0 Blood Gas Notified Whom MA Blood Gas Notified Time 09/16/2018 5:07:46 AM Medications Medication Current Medications Ondansetron HCl (Zofran Inj) 4 mg Q6H PRN IV NAUSEA AND/OR VOMITING Last administered on 09/06/18 18:46; Admin Dose 4 MG; Start 08/26/18 at 23:30 Acetaminophen (Tylenol Supp) 650 mg Q4H PRN [place] PAIN LEVEL 1-3 OR FEVER; Start 08/26/18 at 23:30 Aspirin (Aspirin) 81 mg DAILY PO Last administered on 09/16/18 10:23; Admin Dose 81 MG; Start 08/29/18 at 09:00 Famotidine (Pepcid) 20 mg Q12 PO Last administered on 09/16/18 10:24; Admin Dose 20 MG; Start 08/29/18 at 21:00 Zolpidem Tartrate (Ambien) 5 mg HS PRN PO INSOMNIA Last administered on 09/10/18 20:31; Admin Dose 5 MG; Start 09/01/18 at 00:00 Guaifenesin/ Dextromethorphan (Robitussin Dm Liquid Cup) 5 ml Q6H PRN PO COUGH Last administered on 09/15/18 05:16; Admin Dose 5 ML; Start 09/01/18 at 20:00 Morphine Sulfate (morphine) 6 mg Q4H PRN PO SEVERE PAIN LEVEL 7-10 Last administered on 09/15/18 00:23; Admin Dose 6 MG; Start 09/04/18 at 21:30 Albuterol/ Ipratropium (Duoneb) 3 ml Q3H RESP THERAPY PRN HHN SHORTNESS OF BREATH Last administered on 09/12/18 18:47; Admin Dose 3 ML; Start 09/05/18 at 20:00 Methylprednisolone Sodium Succinate (Solu-Medrol) 40 mg Q6 IV Last administered on 09/16/18 05:53; Admin Dose 40 MG; Start 09/07/18 at 12:00 Alteplase, Recombinant (Cathflo (Activase)) 2 mg MAY REPEAT X1 PRN CATHETER IF CATHETER REMAINS OCCULUDED; Start 09/07/18 at 11:00 Amlodipine Besylate (Norvasc) 5 mg DAILY PO Last administered on 09/16/18 10:24; Admin Dose 5 MG; Start 09/10/18 at 09:00 Albuterol/ Ipratropium (Duoneb) 3 ml Q6H RESP THERAPY HHN Last administered on 09/16/18 08:46; Admin Dose 3 ML; Start 09/09/18 at 20:00 Lorazepam (Ativan) 1 mg Q6H PRN IV PSYCHOSIS Last administered on 09/15/18 23:26; Admin Dose 1 MG; Start 09/12/18 at 02:00 Dextrose 1,000 ml @ 50 mls/hr Q20H IV Last administered on 09/15/18 00:28; Admin Dose 75 MLS/HR; Start 09/12/18 at 08:00; Status Hold Haloperidol (Haldol) 2 mg PRN PRN IM AGITATION Last administered on 09/16/18 04:41; Admin Dose 2 MG; Start 09/13/18 at 06:30 Risperidone (Risperdal) 2 mg BID PO Last administered on 09/16/18 10:25; Admin Dose 2 MG; Start 09/14/18 at 21:00 Divalproex Sodium (Depakote Sprinkle) 250 mg Q8H PO Last administered on 09/16/18at 04:40; Admin Dose 250 MG; Start 09/15/18 at 21:00 AALIYAH MEZA NP Sep 16, 2018 11:15
[2018-09-16] MEDS: BALSAM PERU/CASTOR OIL 60 GM TUBE TOP SCH (11:24)
[2018-09-16] MEDS: LORAZEPAM 2 MG INJ IV PRN (13:05)
--- NOTE | 2018-09-16 13:26 | CONS ---
Assessment/Plan Assessment/Plan Hospital Course (Demo Recall) IMP: 1.Hypotension-Now improved and tolerating norvasc. NL EF by echo this admit 2.resp failure s/p extubation 3.cardiac arrest 4.pneumoperitoneum-resolved 5.Positive troponin-now trended neg 6.renal failure-improved 7.Leukocytosis 8. anemia 9, Thrombocytopenia-ongoing some worsening 10.Resp failure-hypercapnic s/p intubation. s/p extubation but now transferred back to ICU for increasing resp distress 11.PNA-by cxr 12.PLeual effusion Recc: -IN ICU -Continue norvasc and follow BP clsoely -Continue asa -continue steroids/bronchodilators -Continue risperdal -follow MS closely -Follow volume status clsoely -consider thoracentesis -asp precautions Consultation Date/Type/Reason Admit Date/Time Aug 27, 2018 at 00:03 Initial Consult Date 08/27/18 Type of Consult Cardiology Reason for Consultation cad Requesting Provider: VIVIANA NOLAN MD Date/Time of Note DATE: 09/16/18 TIME: 13:23 Exam/Review of Systems Vital Signs Vitals Vital Signs Date Temp Pulse Resp B/P (MAP) Pulse Ox O2 O2 Flow FiO2 Time Delivery Rate 09/16/18 97.7 93 22 119/87 99 Nasal 5.0 12:00 (98) Cannula 09/16/18 36 09:45 Intake and Output 09/15/18 09/15/18 09/16/18 1414:59 22:59 06:59 IntakeIntake Total 620 ml 200 ml OutputOutput Total 400 ml 680 ml 815 ml BalanceBalance -400 ml -60 ml -615 ml Exam Exam Review of Systems: CONSTITUTIONAL: No fevers, chills. PULMONARY: No sob CARDIOVASCULAR: No chest pain/palpitations GASTROINTESTINAL: No nausea/vomiting. GENITOURINARY: No hematuria/dysuria. MUSCULOSKELETAL: No myagias/arthalgias. PSYCHIATRIC: The patient denies depression. NEUROLOGIC: No weakness Constitutional: alert, oriented Psych: no complaints Head: normocephalic ENMT: mucosa pink and moist Neck: supple, jvd (9 cm water) Respiratory: diminished breath sounds (at bases/B) Cardiovascular: other (tachycardic, regular rhythm) Musculoskeletal: muscle weakness (mild generalized) Extremities: edema (none) Labs Result Diagram: 09/16/18 0415 09/16/18 0415 Results 24hrs Laboratory Tests Test 09/16/18 04:15 09/16/18 05:00 White Blood Count 6.6 # Red Blood Count 3.69 L Hemoglobin 10.3 L Hematocrit 33.8 L Mean Corpuscular Volume 91.6 Mean Corpuscular Hemoglobin 27.9 L Mean Corpuscular Hemoglobin Concent 30.5 L Red Cell Distribution Width 15.9 H Platelet Count 53 L Mean Platelet Volume 12.2 H Immature Granulocytes % 1.200 H Neutrophils % 91.3 H Lymphocytes % 5.9 L Monocytes % 1.2 Eosinophils % 0.2 Basophils % 0.2 Nucleated Red Blood Cells % 0.0 Immature Granulocytes # 0.080 H Neutrophils # 6.0 Lymphocytes # 0.4 L Monocytes # 0.1 L Eosinophils # 0.0 Basophils # 0.0 Nucleated Red Blood Cells # 0.0 Sodium Level 146 H Potassium Level 4.6 Chloride Level 108 Carbon Dioxide Level 40 H Anion Gap -2 L Blood Urea Nitrogen 38 H Creatinine 0.77 Est Glomerular Filtrat Rate mL/min > 60 Glucose Level 206 Lactic Acid Level 2.8 *H Calcium Level 9.3 Blood Gas Specimen Source Blood arterial Arterial Blood Date Drawn 09/16/2018 5:00:10 AM Arterial Blood pH (Temp corrected) 7.495 H Arterial Blood pCO2 (Temp correct) 48.5 H Arterial Blood pO2 (Temp corrected) 81.1 Arterial Blood HCO3 36.5 H Arterial Blood Base Excess 11.8 H Arterial Blood Oxygen Saturation 96.0 Miller Test ACCEPTAB Arterial Blood Gas Puncture Site Left Radial Arterial Blood Carboxyhemoglobin 0.4 Arterial Blood Methemoglobin 0.2 Blood Gas A-a O2 Differential 141.1 H Oxyhemoglobin Percent 95.4 Blood Gas Temperature 37.0 Blood Gas Modality NASAL CANNULA FiO2 39.0 Blood Gas Notified Whom MA Blood Gas Notified Time 09/16/2018 5:07:46 AM Medications Medications Current Medications Ondansetron HCl (Zofran Inj) 4 mg Q6H PRN IV NAUSEA AND/OR VOMITING Last administered on 09/06/18at 18:46; Admin Dose 4 MG; Start 08/26/18 at 23:30 Acetaminophen (Tylenol Supp) 650 mg Q4H PRN [place] PAIN LEVEL 1-3 OR FEVER; Start 08/26/18 at 23:30 Aspirin (Aspirin) 81 mg DAILY PO Last administered on 09/16/18 10:23; Admin Dose 81 MG; Start 08/29/18 at 09:00 Famotidine (Pepcid) 20 mg Q12 PO Last administered on 09/16/18 10:24; Admin Dose 20 MG; Start 08/29/18 at 21:00 Zolpidem Tartrate (Ambien) 5 mg HS PRN PO INSOMNIA Last administered on 09/10/18 20:31; Admin Dose 5 MG; Start 09/01/18 at 00:00 Guaifenesin/ Dextromethorphan (Robitussin Dm Liquid Cup) 5 ml Q6H PRN PO COUGH Last administered on 09/15/18 05:16; Admin Dose 5 ML; Start 09/01/18 at 20:00 Morphine Sulfate (morphine) 6 mg Q4H PRN PO SEVERE PAIN LEVEL 7-10 Last administered on 09/15/18 00:23; Admin Dose 6 MG; Start 09/04/18 at 21:30 Albuterol/ Ipratropium (Duoneb) 3 ml Q3H RESP THERAPY PRN HHN SHORTNESS OF BREATH Last administered on 09/12/18 18:47; Admin Dose 3 ML; Start 09/05/18 at 20:00 Methylprednisolone Sodium Succinate (Solu-Medrol) 40 mg Q6 IV Last administered on 09/16/18 12:20; Admin Dose 40 MG; Start 09/07/18 at 12:00 Alteplase, Recombinant (Cathflo (Activase)) 2 mg MAY REPEAT X1 PRN CATHETER IF CATHETER REMAINS OCCULUDED; Start 09/07/18 at 11:00 Amlodipine Besylate (Norvasc) 5 mg DAILY PO Last administered on 09/16/18 10:24; Admin Dose 5 MG; Start 09/10/18 at 09:00 Albuterol/ Ipratropium (Duoneb) 3 ml Q6H RESP THERAPY HHN Last administered on 09/16/18 08:46; Admin Dose 3 ML; Start 09/09/18 at 20:00 Lorazepam (Ativan) 1 mg Q6H PRN IV PSYCHOSIS Last administered on 09/16/18 13:05; Admin Dose 1 MG; Start 2/7/19 at 02:00 Dextrose 1,000 ml @ 50 mls/hr Q20H IV Last administered on 09/15/18at 00:28; Admin Dose 75 MLS/HR; Start 09/12/18 at 08:00; Status Hold Haloperidol (Haldol) 2 mg PRN PRN IM AGITATION Last administered on 09/16/18at 04:41; Admin Dose 2 MG; Start 09/13/18 at 06:30 Risperidone (Risperdal) 2 mg BID PO Last administered on 09/16/18at 10:25; Admin Dose 2 MG; Start 09/14/18 at 21:00 Divalproex Sodium (Depakote Sprinkle) 250 mg Q8H PO Last administered on 09/16/18at 12:21; Admin Dose 250 MG; Start 09/15/18 at 21:00 MITCHEL DESOUZA Sep 16, 2018 13:26
--- NOTE | 2018-09-16 15:25 | PN ---
Date/Time of Note Date/Time of Note DATE: 09/16/18 TIME: 15:24 Assessment/Plan VTE Prophylaxis Risk score (from Ns)>0 risk: 11 SCD applied (from Ns): Yes Lines/Catheters IV Catheter Type (from [facility]): Saline Lock Urinary Cath still in place: Yes Assessment/Plan Hospital Course Assessment/Plan -Hypoxic respiratory failure requiring mechanical ventilation, extubated. Dr. Mejias is following in pulmonology consultation. -Sepsis with shock, resolving. Dr. Sutton is following in infection disease consultation. -Status post cardiac arrest. Dr. Hernández is following in cardiology co nsultation. -Left-sided pneumothorax, status post left side chest tube placement, s/p self d/c CT. -S/p pneumoperitoneum most likely due to cardiac arrest, resolved. Dr. Rivas is following in general surgery consultation. -Left axillary and brachial DVT, LUE swelling subsided, was on Lovenox which is currently held due to thrombocytopenia -Left lower lobe pneumonia -Severe emphysema -JEREMÍAS with possible chronic kidney disease. Dr Arvizu is following in nephrology consultation. -Schizoaffective disorder depressed type. Psychiatric consult is appreciated, continue Risperdal Depakote Further recommendations based on clinical course. Plan of care discussed with Dr. Juarez. Result Diagram: 09/16/18 0415 09/16/18 0415 Results 24hrs Laboratory Tests Test 09/16/18 04:15 09/16/18 05:00 White Blood Count 6.6 # Red Blood Count 3.69 L Hemoglobin 10.3 L Hematocrit 33.8 L Mean Corpuscular Volume 91.6 Mean Corpuscular Hemoglobin 27.9 L Mean Corpuscular Hemoglobin Concent 30.5 L Red Cell Distribution Width 15.9 H Platelet Count 53 L Mean Platelet Volume 12.2 H Immature Granulocytes % 1.200 H Neutrophils % 91.3 H Lymphocytes % 5.9 L Monocytes % 1.2 Eosinophils % 0.2 Basophils % 0.2 Nucleated Red Blood Cells % 0.0 Immature Granulocytes # 0.080 H Neutrophils # 6.0 Lymphocytes # 0.4 L Monocytes # 0.1 L Eosinophils # 0.0 Basophils # 0.0 Nucleated Red Blood Cells # 0.0 Sodium Level 146 H Potassium Level 4.6 Chloride Level 108 Carbon Dioxide Level 40 H Anion Gap -2 L Blood Urea Nitrogen 38 H Creatinine 0.77 Est Glomerular Filtrat Rate mL/min > 60 Glucose Level 206 Lactic Acid Level 2.8 *H Calcium Level 9.3 Blood Gas Specimen Source Blood arterial Arterial Blood Date Drawn 09/16/2018 5:00:10 AM Arterial Blood pH (Temp corrected) 7.495 H Arterial Blood pCO2 (Temp correct) 48.5 H Arterial Blood pO2 (Temp corrected) 81.1 Arterial Blood HCO3 36.5 H Arterial Blood Base Excess 11.8 H Arterial Blood Oxygen Saturation 96.0 Miller Test ACCEPTAB Arterial Blood Gas Puncture Site Left Radial Arterial Blood Carboxyhemoglobin 0.4 Arterial Blood Methemoglobin 0.2 Blood Gas A-a O2 Differential 141.1 H Oxyhemoglobin Percent 95.4 Blood Gas Temperature 37.0 Blood Gas Modality NASAL CANNULA FiO2 39.0 Blood Gas Notified Whom MA Blood Gas Notified Time 09/16/2018 5:07:46 AM Exam/Review of Systems Exam Vitals Vital Signs Date Temp Pulse Resp B/P (MAP) Pulse Ox O2 O2 Flow FiO2 Time Delivery Rate 09/16/18 91 3.0 14:12 09/16/18 101 24 Nasal 14:12 Cannula 09/16/18 97.7 119/87 12:00 (98) 09/16/18 36 09:45 Intake and Output 09/15/18 09/15/18 09/16/18 1515:00 23:00 07:00 IntakeIntake Total 820 ml 0 ml OutputOutput Total 400 ml 820 ml 775 ml BalanceBalance -400 ml 0 ml -775 ml Exam Constitutional: alert, oriented Respiratory: diminished breath sounds Cardiovascular: regular rate and rhythm Gastrointestinal: soft, non-tender Musculoskeletal: nl extremities to inspection Extremities: normal pulses Neurological: nl mental status Results Results 24hrs Laboratory Tests Test 09/16/18 04:15 09/16/18 05:00 White Blood Count 6.6 # Red Blood Count 3.69 L Hemoglobin 10.3 L Hematocrit 33.8 L Mean Corpuscular Volume 91.6 Mean Corpuscular Hemoglobin 27.9 L Mean Corpuscular Hemoglobin Concent 30.5 L Red Cell Distribution Width 15.9 H Platelet Count 53 L Mean Platelet Volume 12.2 H Immature Granulocytes % 1.200 H Neutrophils % 91.3 H Lymphocytes % 5.9 L Monocytes % 1.2 Eosinophils % 0.2 Basophils % 0.2 Nucleated Red Blood Cells % 0.0 Immature Granulocytes # 0.080 H Neutrophils # 6.0 Lymphocytes # 0.4 L Monocytes # 0.1 L Eosinophils # 0.0 Basophils # 0.0 Nucleated Red Blood Cells # 0.0 Sodium Level 146 H Potassium Level 4.6 Chloride Level 108 Carbon Dioxide Level 40 H Anion Gap -2 L Blood Urea Nitrogen 38 H Creatinine 0.77 Est Glomerular Filtrat Rate mL/min > 60 Glucose Level 206 Lactic Acid Level 2.8 *H Calcium Level 9.3 Blood Gas Specimen Source Blood arterial Arterial Blood Date Drawn 09/16/2018 5:00:10 AM Arterial Blood pH (Temp corrected) 7.495 H Arterial Blood pCO2 (Temp correct) 48.5 H Arterial Blood pO2 (Temp corrected) 81.1 Arterial Blood HCO3 36.5 H Arterial Blood Base Excess 11.8 H Arterial Blood Oxygen Saturation 96.0 Miller Test ACCEPTAB Arterial Blood Gas Puncture Site Left Radial Arterial Blood Carboxyhemoglobin 0.4 Arterial Blood Methemoglobin 0.2 Blood Gas A-a O2 Differential 141.1 H Oxyhemoglobin Percent 95.4 Blood Gas Temperature 37.0 Blood Gas Modality NASAL CANNULA FiO2 39.0 Blood Gas Notified Whom MA Blood Gas Notified Time 09/16/2018 5:07:46 AM Medications Medication Current Medications Ondansetron HCl (Zofran Inj) 4 mg Q6H PRN IV NAUSEA AND/OR VOMITING Last administered on 09/06/18 18:46; Admin Dose 4 MG; Start 08/26/18 at 23:30 Acetaminophen (Tylenol Supp) 650 mg Q4H PRN [place] PAIN LEVEL 1-3 OR FEVER; Start 08/26/18 at 23:30 Aspirin (Aspirin) 81 mg DAILY PO Last administered on 09/16/18 10:23; Admin Dose 81 MG; Start 08/29/18 at 09:00 Famotidine (Pepcid) 20 mg Q12 PO Last administered on 09/16/18 10:24; Admin Dose 20 MG; Start 08/29/18 at 21:00 Zolpidem Tartrate (Ambien) 5 mg HS PRN PO INSOMNIA Last administered on 09/10/18 20:31; Admin Dose 5 MG; Start 09/01/18 at 00:00 Guaifenesin/ Dextromethorphan (Robitussin Dm Liquid Cup) 5 ml Q6H PRN PO COUGH Last administered on 09/15/18 05:16; Admin Dose 5 ML; Start 09/01/18 at 20:00 Morphine Sulfate (morphine) 6 mg Q4H PRN PO SEVERE PAIN LEVEL 7-10 Last administered on 09/15/18 00:23; Admin Dose 6 MG; Start 09/04/18 at 21:30 Albuterol/ Ipratropium (Duoneb) 3 ml Q3H RESP THERAPY PRN HHN SHORTNESS OF BREATH Last administered on 09/12/18 18:47; Admin Dose 3 ML; Start 09/05/18 at 20:00 Methylprednisolone Sodium Succinate (Solu-Medrol) 40 mg Q6 IV Last administered on 09/16/18 12:20; Admin Dose 40 MG; Start 09/07/18 at 12:00 Alteplase, Recombinant (Cathflo (Activase)) 2 mg MAY REPEAT X1 PRN CATHETER IF CATHETER REMAINS OCCULUDED; Start 09/07/18 at 11:00 Amlodipine Besylate (Norvasc) 5 mg DAILY PO Last administered on 09/16/18 10:24; Admin Dose 5 MG; Start 09/10/18 at 09:00 Albuterol/ Ipratropium (Duoneb) 3 ml Q6H RESP THERAPY HHN Last administered on 09/16/18 14:12; Admin Dose 3 ML; Start 09/09/18 at 20:00 Lorazepam (Ativan) 1 mg Q6H PRN IV PSYCHOSIS Last administered on 09/16/18 13:05; Admin Dose 1 MG; Start 09/12/18 at 02:00 Dextrose 1,000 ml @ 50 mls/hr Q20H IV Last administered on 09/15/18 00:28; Admin Dose 75 MLS/HR; Start 09/12/18 at 08:00; Status Hold Haloperidol (Haldol) 2 mg PRN PRN IM AGITATION Last administered on 09/16/18 04:41; Admin Dose 2 MG; Start 09/13/18 at 06:30 Risperidone (Risperdal) 2 mg BID PO Last administered on 09/16/18 10:25; Admin Dose 2 MG; Start 09/14/18 at 21:00 Divalproex Sodium (Depakote Sprinkle) 250 mg Q8H PO Last administered on 09/16/18at 12:21; Admin Dose 250 MG; Start 09/15/18 at 21:00 HERMES HARRIS Sep 16, 2018 15:25
[2018-09-17] VITALS (24 sets, daily range): BP systolic 121–150; BP diastolic 79–116; PULSE 96–115; RESP 16–37
[2018-09-17] MEDS: HALOPERIDOL 5 MG INJ IM PRN (00:44)
[2018-09-17] MEDS: ALBUTEROL/IPRATROPIUM (NEB) 3 ML AMP HHN SCH ×4 (01:37→20:01)
[2018-09-17] MEDS: METHYLPREDNISOLONE 40 MG INJ IV SCH ×3 (05:20→18:25)
[2018-09-17] MEDS: DIVALPROEX SPRINKLE 125 MG CAP PO SCH ×3 (05:20→20:58)
[2018-09-17] MEDS: DEXTROSE 5% 1,000 ML IV SCH ×2 (06:50→20:52)
--- NOTE | 2018-09-17 07:47 | PN ---
DATE: 09/17/2018 SUBJECTIVE: The patient was noted to be lethargic and tachypneic overnight. The patient is on aspir ation precautions. Urinary output has been adequate, approximately 50 mL an hour. No other acute ev ents noted. No hemoptysis, hematemesis, hematochezia. OBJECTIVE: VITAL SIGNS: Blood pressure is 147/104, respirations 25, pulse 105, temperature 97.6. I's AND O'S: The patient had 250 mL in with 2 liters out. HEENT: Head is normocephalic. NECK: Supple. HEART: Regular rate. LUNGS: Show diminished breath sounds at the base. ABDOMEN: Soft, nontender to palpation. No rebound or guarding. EXTREMITIES: Negative for clubbing, cyanosis, no edema. DERMATOLOGIC: No rashes. MUSCULOSKELETAL: No joint effusions. NEUROLOGIC: No focal deficits. MEDICATIONS: Reviewed. LABORATORY DATA: Shows sodium of 154, potassium 3.6, chloride 112, bicarbonate 38, BUN 46, creatinin e 0.80, magnesium 2.9. The patient has ABG shows a pH of 7.47, pCO2 of 50, base excess of 10. White count 6.6, hemoglobin 10.3, platelet count is 53. IMAGING: Chest x-ray was reviewed, shows a moderate right-sided pleural effusion and lower lobe atel ectasis. ASSESSMENT AND PLAN: 1. Nonoliguric acute kidney injury, unknown previous baseline creatinine. Etiology of acute kidney injury is secondary to hemodynamics. Renal function has improved. The patient does have underlying azotemia secondary to acute kidney injury, hypercatabolic state. Will continue to monitor, continue supportive care, renally dose all meds. 2. Hypernatremia. The patient has a free water deficit of approximately 2.5 to 3 liters. We will s tart the patient on D5 water at 75 mL an hour and monitor. 3. Metabolic alkalosis with respiratory compensation. At this point, would continue current treatme nt plan. Continue IV hydration. May consider intermittent Diamox. 4. Anemia. Continue to monitor hemoglobin and hematocrit levels. 5. Mineral bone disorder, monitor calcium and phosphorus levels. 6. Hypomagnesemia. Continue to monitor. 7. History of diastolic heart failure. The patient appears compensated. Continue to monitor and gi ve intermittent Diamox as needed. 8. Pleural effusion, possibly parapneumonic continue to monitor. Consider thoracentesis. 9. Acute hypoxemic, hypercapnic respiratory failure. The patient currently is on nasal cannula. Co ntinue to monitor. Follow up with pulmonary. 10. Sepsis, status post shock of pneumonia. Patient is completing antibiotic course. 11. Acute encephalopathy, etiology is toxic metabolic. 12. Status post brachial vein deep vein thrombosis. Continue medical management. 13. Status post cardiac arrest. 14. Status post pneumothorax. 15. Status post pneumoperitoneum. Dictated By: JOE BLACK DO NR/NTS Conf#: [id number] DID#: [id number] CC: WENDY LOVE MD;*EndCC*
[2018-09-17] MEDS: morphine LIQ (10 MG/5 ML) CUP PO PRN ×2 (08:04→12:44)
[2018-09-17] MEDS: ASPIRIN 81 MG TAB PO SCH (09:00)
[2018-09-17] MEDS: FAMOTIDINE 20 MG TAB PO SCH ×2 (09:00→20:58)
[2018-09-17] MEDS: RISPERIDONE 1 MG TAB PO SCH ×2 (09:00→20:58)
[2018-09-17] MEDS: AMLODIPINE 5 MG TAB PO SCH (09:00)
[2018-09-17] MEDS: BALSAM PERU/CASTOR OIL 60 GM TUBE TOP SCH (10:00)
--- NOTE | 2018-09-17 10:16 | CONS ---
Consult Date/Type/Reason Admit Date/Time Aug 27, 2018 at 00:03 Initial Consult Date 08/27/18 Type of Consult Pulmonary Requesting Provider: VIVIANA NOLAN MD Date/Time of Note DATE: 09/17/18 TIME: 10:14 Subjective Patient's condition remains guarded. Currently having moderate secretions which she is having difficulty tolerating with fluctuating oxygen saturations. Remains awake and alert however. Objective Vital Signs Date Temp Pulse Resp B/P (MAP) Pulse Ox O2 O2 Flow FiO2 Time Delivery Rate 09/17/18 106 28 92 Nasal 2.0 08:40 Cannula 09/17/18 147/104 06:00 (118) 09/17/18 97.6 04:00 09/16/18 36 09:45 Intake and Output 09/16/18 09/16/18 09/17/18 1515:00 23:00 07:00 IntakeIntake Total 150 ml 0 ml 100 ml OutputOutput Total 500 ml 930 ml 640 ml BalanceBalance -350 ml -930 ml -540 ml Exam GENERAL: Frail elderly gentleman VITAL SIGNS: per chart NECK: Supple. No JVD or lymphadenopathy. CARDIAC EXAM: S1, S2. No added sounds or murmurs. CHEST: Diminished air entry bilaterally ABDOMEN: Soft, nontender. No guarding or rebound. EXTREMITIES: No cyanosis, clubbing or edema. NEUROLOGIC: Generalized weakness. No focal deficits. Vent Setting Ventilator Support Mode: SPONT Fraction of Inspired Oxygen pe: 36 Positive End Expiratory Pressu: 5.0 Results/Medications Result Diagram: 09/16/18 0415 09/17/18 0340 Results 24 hrs Laboratory Tests Test 09/16/18 15:20 09/17/18 03:40 Blood Gas Specimen Source Blood arterial Arterial Blood Date Drawn 09/16/2018 3:20:06 PM Arterial Blood pH (Temp corrected) 7.472 H Arterial Blood pCO2 (Temp correct) 50.0 H Arterial Blood pO2 (Temp corrected) 92.6 Arterial Blood HCO3 35.7 H Arterial Blood Base Excess 10.6 H Arterial Blood Oxygen Saturation 96.6 Miller Test ACCEPTAB Arterial Blood Gas Puncture Site Right Radial Arterial Blood Carboxyhemoglobin 0.2 Arterial Blood Methemoglobin 0.3 Blood Gas A-a O2 Differential 84.3 H Oxyhemoglobin Percent 96.1 Blood Gas Temperature 37.0 Blood Gas Modality NASAL CANNULA FiO2 33.0 Blood Gas Notified Whom Blood Gas Notified Time 09/16/2018 3:32:09 PM Sodium Level 154 H Potassium Level 3.6 Chloride Level 112 H Carbon Dioxide Level 38 H Anion Gap 4 L Blood Urea Nitrogen 46 H Creatinine 0.80 Est Glomerular Filtrat Rate mL/min > 60 Glucose Level 165 Calcium Level 9.6 Phosphorus Level 2.8 Magnesium Level 2.9 H Medications Current Medications Ondansetron HCl (Zofran Inj) 4 mg Q6H PRN IV NAUSEA AND/OR VOMITING Last administered on 09/06/18 18:46; Admin Dose 4 MG; Start 08/26/18 at 23:30 Acetaminophen (Tylenol Supp) 650 mg Q4H PRN [place] PAIN LEVEL 1-3 OR FEVER; Start 08/26/18 at 23:30 Aspirin (Aspirin) 81 mg DAILY PO Last administered on 09/16/18 10:23; Admin Dose 81 MG; Start 08/29/18 at 09:00 Famotidine (Pepcid) 20 mg Q12 PO Last administered on 09/16/18 20:49; Admin Dose 20 MG; Start 08/29/18 at 21:00 Zolpidem Tartrate (Ambien) 5 mg HS PRN PO INSOMNIA Last administered on 09/10/18 20:31; Admin Dose 5 MG; Start 09/01/18 at 00:00 Guaifenesin/ Dextromethorphan (Robitussin Dm Liquid Cup) 5 ml Q6H PRN PO COUGH Last administered on 09/15/18 05:16; Admin Dose 5 ML; Start 09/01/18 at 20:00 Morphine Sulfate (morphine) 6 mg Q4H PRN PO SEVERE PAIN LEVEL 7-10 Last administered on 09/17/18 08:04; Admin Dose 6 MG; Start 09/04/18 at 21:30 Albuterol/ Ipratropium (Duoneb) 3 ml Q3H RESP THERAPY PRN HHN SHORTNESS OF BREATH Last administered on 09/12/18 18:47; Admin Dose 3 ML; Start 09/05/18 at 20:00 Methylprednisolone Sodium Succinate (Solu-Medrol) 40 mg Q6 IV Last administered on 09/17/18 05:20; Admin Dose 40 MG; Start 09/07/18 at 12:00 Alteplase, Recombinant (Cathflo (Activase)) 2 mg MAY REPEAT X1 PRN CATHETER IF CATHETER REMAINS OCCULUDED; Start 09/07/18 at 11:00 Amlodipine Besylate (Norvasc) 5 mg DAILY PO Last administered on 09/16/18 10:24; Admin Dose 5 MG; Start 09/10/18 at 09:00 Albuterol/ Ipratropium (Duoneb) 3 ml Q6H RESP THERAPY HHN Last administered on 09/17/18 08:40; Admin Dose 3 ML; Start 09/09/18 at 20:00 Lorazepam (Ativan) 1 mg Q6H PRN IV PSYCHOSIS Last administered on 09/16/18 13:05; Admin Dose 1 MG; Start 09/12/18 at 02:00 Haloperidol (Haldol) 2 mg PRN PRN IM AGITATION Last administered on 09/17/18 00:44; Admin Dose 2 MG; Start 09/13/18 at 06:30 Risperidone (Risperdal) 2 mg BID PO Last administered on 09/16/18 20:49; Admin Dose 2 MG; Start 09/14/18 at 21:00 Divalproex Sodium (Depakote Sprinkle) 250 mg Q8H PO Last administered on 09/17/18 05:20; Admin Dose 250 MG; Start 09/15/18 at 21:00 Dextrose 1,000 ml @ 75 mls/hr [id number] IV Last administered on 09/17/18 06:50; Admin Dose 75 MLS/HR; Start 09/17/18 at 06:30 Assessment/Plan Hospital Course (Demo Recall) IMP: 1. Acute on chronic hypoxic and hypercapnic respiratory failure--worse overnight with increased mucus plugging. 2. Pneumoperitoneum status post chest tube which patient pulled out 3. Encephalopathy toxic metabolic resolving 4. Advanced COPD 5. Hypernatremia likely free water deficit 6. Thrombocytopenia 7. Anemia RECS: 1. Continue ICU care 2. Maintain oxygen to keep Sp02 88-92% 3. Aggressive suctioning/CPT 4. NPO 5. Follow ABG/CXR 6. Strict aspiration precautions Consider palliative care evaluation. Patient remains aspiration risk and would require PEG tube. He remains at risk for reintubation and goals of care should be addressed with either his D POA or the patient himself. Consider palliative care consult. KHUSHI PATTON MD, [facility] Sep 17, 2018 10:16
--- NOTE | 2018-09-17 11:54 | CONS ---
Consult Date/Type/Reason Admit Date/Time Aug 27, 2018 at 00:03 Initial Consult Date 08/27/18 Type of Consultation: Pulm/CCM Requesting Provider: VIVIANA NOLAN MD Date/Time of Note DATE: 09/17/18 TIME: 11:52 Subjective No acute events + DVT, but low paltelets - defer to hematology if anti- coagulation is warranted. NO CP now. ROS: No fever, no chills, no nausea, no vomiting, no diarrhea/constipation No recent weight changes No chest pain, no PND, no orthopnea + reports abd pain (chronic) No dizziness, blurred vision No thirst, no heat or cold intolerance Objective Vitals Vital Signs Date Temp Pulse Resp B/P (MAP) Pulse Ox O2 O2 Flow FiO2 Time Delivery Rate 09/17/18 104 25 137/95 Nasal 3.0 11:00 (109) Cannula 09/17/18 83 10:00 09/17/18 97.3 08:00 09/16/18 36 09:45 Intake and Output 09/16/18 09/16/18 09/17/18 1515:00 23:00 07:00 IntakeIntake Total 150 ml 0 ml 100 ml OutputOutput Total 500 ml 930 ml 640 ml BalanceBalance -350 ml -930 ml -540 ml Exam General: WN/WD/NAD, AOx 2-3 psych HEENT: Unicetric/atraumatic/EOMI ( follow commands) NECK: JVD elevated, no thyromegaly Lymph: no lymphadenopathy HEART: regular with no S3, II/ systolic murmur at apex LUNGS: Coarse sounds ABD: soft, NT, ND, +BS : Intact Neuro: non focal SKIN: chronic changes EXT: trace edema Results/Medications Result Diagram: 09/16/18 0415 09/17/18 0340 Results 24 hrs Laboratory Tests Test 09/16/18 15:20 09/17/18 03:40 Blood Gas Specimen Source Blood arterial Arterial Blood Date Drawn 09/16/2018 3:20:06 PM Arterial Blood pH (Temp corrected) 7.472 H Arterial Blood pCO2 (Temp correct) 50.0 H Arterial Blood pO2 (Temp corrected) 92.6 Arterial Blood HCO3 35.7 H Arterial Blood Base Excess 10.6 H Arterial Blood Oxygen Saturation 96.6 Miller Test ACCEPTAB Arterial Blood Gas Puncture Site Right Radial Arterial Blood Carboxyhemoglobin 0.2 Arterial Blood Methemoglobin 0.3 Blood Gas A-a O2 Differential 84.3 H Oxyhemoglobin Percent 96.1 Blood Gas Temperature 37.0 Blood Gas Modality NASAL CANNULA FiO2 33.0 Blood Gas Notified Whom Blood Gas Notified Time 09/16/2018 3:32:09 PM Sodium Level 154 H Potassium Level 3.6 Chloride Level 112 H Carbon Dioxide Level 38 H Anion Gap 4 L Blood Urea Nitrogen 46 H Creatinine 0.80 Est Glomerular Filtrat Rate mL/min > 60 Glucose Level 165 Calcium Level 9.6 Phosphorus Level 2.8 Magnesium Level 2.9 H Home Meds Reported Medications Docusate Sodium* (Colace*) 100 Mg Capsule, 100 MG PO Q24H PRN for CONSTIPATION, #30 CAP 08/26/18 Polyethylene Glycol* (Miralax*) 17 Gm Powd.pack, 17 GM PO DAILY PRN for NE EDED, #30 PACKET 08/26/18 Acetaminophen* (Acetaminophen*) 325 Mg Tablet, 650 MG PO Q4H PRN for PAIN - 05/15, #30 TAB AND FEVER>101F 08/26/18 Sennosides* (Senna Lax*) 8.6 Mg Tablet, 1 TAB PO NEEDED, TAB 08/26/18 Mv,Minerals/Fa/Lycopene/Ginkgo (ONE DAILY MEN'S 50+ TABLET) 1 Each Tablet, 1 EACH PO DAILY, TAB 08/26/18 Divalproex Sodium* (Depakote*) 125 Mg Tablet.dr, 250 MG PO Q8H, #90 TAB 08/26/18 Quetiapine Fumarate* (Seroquel*) 50 Mg Tablet, 50 MG PO Q8H, TAB 08/26/18 Ipratropium-Albuterol (Ipratropium-Albuterol) 0.5-3 Mg/3 Ml Ampul.neb, 3 ML INHALATION Q4H PRN for WHEEZING AND SOB, #30 VIAL 08/26/18 Budesonide-Formoterol Fumarate* (Symbicort*) 160-4.5 Hfa.aer.ad, 2 PUFF INHALATION BID, #1 EACH 08/26/18 Medications Current Medications Ondansetron HCl (Zofran Inj) 4 mg Q6H PRN IV NAUSEA AND/OR VOMITING Last administered on 09/06/18 18:46; Admin Dose 4 MG; Start 08/26/18 at 23:30 Acetaminophen (Tylenol Supp) 650 mg Q4H PRN [place] PAIN LEVEL 1-3 OR FEVER; Start 08/26/18 at 23:30 Aspirin (Aspirin) 81 mg DAILY PO Last administered on 09/16/18 10:23; Admin Dose 81 MG; Start 08/29/18 at 09:00 Famotidine (Pepcid) 20 mg Q12 PO Last administered on 09/16/18 20:49; Admin Dose 20 MG; Start 08/29/18 at 21:00 Zolpidem Tartrate (Ambien) 5 mg HS PRN PO INSOMNIA Last administered on 09/10/18 20:31; Admin Dose 5 MG; Start 09/01/18 at 00:00 Guaifenesin/ Dextromethorphan (Robitussin Dm Liquid Cup) 5 ml Q6H PRN PO COUGH Last administered on 09/15/18 05:16; Admin Dose 5 ML; Start 09/01/18 at 20:00 Morphine Sulfate (morphine) 6 mg Q4H PRN PO SEVERE PAIN LEVEL 7-10 Last administered on 09/17/18 08:04; Admin Dose 6 MG; Start 09/04/18 at 21:30 Albuterol/ Ipratropium (Duoneb) 3 ml Q3H RESP THERAPY PRN HHN SHORTNESS OF BREATH Last administered on 09/12/18 18:47; Admin Dose 3 ML; Start 09/05/18 at 20:00 Methylprednisolone Sodium Succinate (Solu-Medrol) 40 mg Q6 IV Last administered on 09/17/18 05:20; Admin Dose 40 MG; Start 09/07/18 at 12:00 Alteplase, Recombinant (Cathflo (Activase)) 2 mg MAY REPEAT X1 PRN CATHETER IF CATHETER REMAINS OCCULUDED; Start 09/07/18 at 11:00 Amlodipine Besylate (Norvasc) 5 mg DAILY PO Last administered on 09/16/18 10:24; Admin Dose 5 MG; Start 09/10/18 at 09:00 Albuterol/ Ipratropium (Duoneb) 3 ml Q6H RESP THERAPY HHN Last administered on 09/17/18 08:40; Admin Dose 3 ML; Start 09/09/18 at 20:00 Lorazepam (Ativan) 1 mg Q6H PRN IV PSYCHOSIS Last administered on 09/16/18 13:05; Admin Dose 1 MG; Start 09/12/18 at 02:00 Haloperidol (Haldol) 2 mg PRN PRN IM AGITATION Last administered on 09/17/18 00:44; Admin Dose 2 MG; Start 09/13/18 at 06:30 Risperidone (Risperdal) 2 mg BID PO Last administered on 09/16/18 20:49; Admin Dose 2 MG; Start 09/14/18 at 21:00 Divalproex Sodium (Depakote Sprinkle) 250 mg Q8H PO Last administered on 09/17/18 05:20; Admin Dose 250 MG; Start 09/15/18 at 21:00 Dextrose 1,000 ml @ 75 mls/hr [id number] IV Last administered on 09/17/18 06:50; Admin Dose 75 MLS/HR; Start 09/17/18 at 06:30 Assessment/Plan Hospital Course (Demo Recall) 1.Hypotension-off levo - better now - BP better, will allow in 140s for now, BETTER NOW. 2.Resp failure s/p intubation - now self extubated - better overall. Con't COPD rx. Con't to monitor. Improved breathing. 3.h/o cardiac arrest - etiology unclear - con't supportive RX now. Stable now - of tele. No cardiac intervention currently planned. 4.Pneumoperitoneum - self d/c chest tube - stable SOB now. 5.Positive troponin-now trended neg - will monitor clinically for now. No intervention planned. 6.renal failure - good urine output. 7.Leukocytosis - on anti-Bx, con't med rx. On anti-Bx. 8. anemia - H/H stable - no bleeding noted. 9, Thrombocytopenia - no active bleeds noted. 10 DVT - low plts - defer to hematology for anti-coagulation. JIE ALEJO MD Sep 17, 2018 11:54
--- NOTE | 2018-09-17 12:44 | CONS ---
Assessment/Plan Assessment/Plan Hospital Course (Demo Recall) Patient remains unchanged downgraded to 3 L nasal cannula he is awake and looks comfortable, afebrile, off antibiotics Indwelling: Right IJ triple-lumen catheter, Sellers Physical examination: Well-developed chronically ill-appearing cachectic elderly man. Head atraumatic normocephalic sclera nonicteric, neck is supple chest rise symmetrical breath sounds diminished bases. Heart: S1-S2. Abdomen soft bowel sounds present. Extremities without edema/cyanosis Assessment: 1. Respiratory failure, s/p pneumonia 2. Dysphagia with ongoing aspiration 4. Pneumoperitoneum of unclear etiology, no perforation per surgical note, status post chest tube 5. Dementia 5. Anemia with progressive thrombocytopenia 6. History of non-ST elevation GA 7. Status post cardiac arrest 8. RIJ TLC Plan: Remains stable, continue present care, aspiration precautions, observe off abx Consultation Date/Type/Reason Admit Date/Time Aug 27, 2018 at 00:03 Initial Consult Date 08/27/18 Type of Consult ID Requesting Provider: VIVIANA NOLAN MD Date/Time of Note DATE: 09/17/18 TIME: 12:43 Exam/Review of Systems Exam Vitals Vital Signs Date Temp Pulse Resp B/P (MAP) Pulse Ox O2 O2 Flow FiO2 Time Delivery Rate 09/17/18 107 12:00 09/17/18 25 137/95 Nasal 3.0 11:00 (109) Cannula 09/17/18 83 10:00 09/17/18 97.3 08:00 09/16/18 36 09:45 Intake and Output 09/16/18 09/16/18 09/17/18 1515:00 23:00 07:00 IntakeIntake Total 150 ml 0 ml 100 ml OutputOutput Total 500 ml 930 ml 640 ml BalanceBalance -350 ml -930 ml -540 ml Results Result Diagram: 09/16/18 0415 09/17/18 0340 Results 24hrs Laboratory Tests Test 09/16/18 15:20 09/17/18 03:40 Blood Gas Specimen Source Blood arterial Arterial Blood Date Drawn 09/16/2018 3:20:06 PM Arterial Blood pH (Temp corrected) 7.472 H Arterial Blood pCO2 (Temp correct) 50.0 H Arterial Blood pO2 (Temp corrected) 92.6 Arterial Blood HCO3 35.7 H Arterial Blood Base Excess 10.6 H Arterial Blood Oxygen Saturation 96.6 Miller Test ACCEPTAB Arterial Blood Gas Puncture Site Right Radial Arterial Blood Carboxyhemoglobin 0.2 Arterial Blood Methemoglobin 0.3 Blood Gas A-a O2 Differential 84.3 H Oxyhemoglobin Percent 96.1 Blood Gas Temperature 37.0 Blood Gas Modality NASAL CANNULA FiO2 33.0 Blood Gas Notified Whom Blood Gas Notified Time 09/16/2018 3:32:09 PM Sodium Level 154 H Potassium Level 3.6 Chloride Level 112 H Carbon Dioxide Level 38 H Anion Gap 4 L Blood Urea Nitrogen 46 H Creatinine 0.80 Est Glomerular Filtrat Rate mL/min > 60 Glucose Level 165 Calcium Level 9.6 Phosphorus Level 2.8 Magnesium Level 2.9 H Medications Medication Current Medications Ondansetron HCl (Zofran Inj) 4 mg Q6H PRN IV NAUSEA AND/OR VOMITING Last administered on 09/06/18 18:46; Admin Dose 4 MG; Start 08/26/18 at 23:30 Acetaminophen (Tylenol Supp) 650 mg Q4H PRN [place] PAIN LEVEL 1-3 OR FEVER; Start 08/26/18 at 23:30 Aspirin (Aspirin) 81 mg DAILY PO Last administered on 09/16/18 10:23; Admin Dose 81 MG; Start 08/29/18 at 09:00 Famotidine (Pepcid) 20 mg Q12 PO Last administered on 09/16/18 20:49; Admin Dose 20 MG; Start 08/29/18 at 21:00 Zolpidem Tartrate (Ambien) 5 mg HS PRN PO INSOMNIA Last administered on 09/10/18 20:31; Admin Dose 5 MG; Start 09/01/18 at 00:00 Guaifenesin/ Dextromethorphan (Robitussin Dm Liquid Cup) 5 ml Q6H PRN PO COUGH Last administered on 09/15/18 05:16; Admin Dose 5 ML; Start 09/01/18 at 20:00 Morphine Sulfate (morphine) 6 mg Q4H PRN PO SEVERE PAIN LEVEL 7-10 Last administered on 09/17/18 08:04; Admin Dose 6 MG; Start 09/04/18 at 21:30 Albuterol/ Ipratropium (Duoneb) 3 ml Q3H RESP THERAPY PRN HHN SHORTNESS OF B REATH Last administered on 09/12/18 18:47; Admin Dose 3 ML; Start 09/05/18 at 20:00 Methylprednisolone Sodium Succinate (Solu-Medrol) 40 mg Q6 IV Last administered on 09/17/18 05:20; Admin Dose 40 MG; Start 09/07/18 at 12:00 Alteplase, Recombinant (Cathflo (Activase)) 2 mg MAY REPEAT X1 PRN CATHETER IF CATHETER REMAINS OCCULUDED; Start 09/07/18 at 11:00 Amlodipine Besylate (Norvasc) 5 mg DAILY PO Last administered on 09/16/18 10:24; Admin Dose 5 MG; Start 09/10/18 at 09:00 Albuterol/ Ipratropium (Duoneb) 3 ml Q6H RESP THERAPY HHN Last administered on 09/17/18 08:40; Admin Dose 3 ML; Start 09/09/18 at 20:00 Lorazepam (Ativan) 1 mg Q6H PRN IV PSYCHOSIS Last administered on 09/16/18 13:05; Admin Dose 1 MG; Start 09/12/18 at 02:00 Haloperidol (Haldol) 2 mg PRN PRN IM AGITATION Last administered on 09/17/18 00:44; Admin Dose 2 MG; Start 09/13/18 at 06:30 Risperidone (Risperdal) 2 mg BID PO Last administered on 09/16/18 20:49; Admin Dose 2 MG; Start 09/14/18 at 21:00 Divalproex Sodium (Depakote Sprinkle) 250 mg Q8H PO Last administered on 09/17/18 05:20; Admin Dose 250 MG; Start 09/15/18 at 21:00 Dextrose 1,000 ml @ 75 mls/hr [id number] IV Last administered on 09/17/18 06:50; Admin Dose 75 MLS/HR; Start 09/17/18 at 06:30 AALIYAH MEZA NP Sep 17, 2018 12:44
--- NOTE | 2018-09-17 14:58 | CONS ---
DATE OF ADMISSION: 08/27/2018 DATE OF CONSULTATION: TYPE OF CONSULTATION: Gastroenterology. Dear Dr. Nolan: Thank you for asking me to see Mr. Black in GI consultation. HISTORY OF PRESENT ILLNESS: As you know, the patient is a 68-year-old white gentleman who was admitt ed to the hospital because of pneumonia and at that time, he had septic shock on admission. He was i ntubated and extubated 2 times. He is still in the intensive care unit and GI consultation is reques johnie for consideration of placement of a percutaneous endoscopic gastrostomy tube. He has recurrent a spirations and he failed the swallow evaluation. He did have a pneumothorax in the past which was tr eated with chest tube. There is a report saying that he also had hemoperitoneum at one point that needs to be evaluated. He has history of emphysema. PHYSICAL EXAMINATION: GENERAL: Currently, he is still short of breath and tachypneic. VITAL SIGNS: Pulse is 89, blood pressure is 112/73. CARDIOVASCULAR: Showed tachycardia. RESPIRATORY: Gurgling sounds heard bilaterally. ABDOMEN: Shows soft abdomen. LABORATORY WORKUP: Hemoglobin is 10.3, WBC count of 6600. The potassium is 3.6, sodium is 154, BUN is 46, creatinine is 0.8. CLINICAL IMPRESSION: The patient is presenting with history of recurrent aspiration pneumonia, faile d swallow evaluation and multiple other medical problems essentially as mentioned above. PLAN: At this time, I agree that patient could benefit from a percutaneous endoscopic gastrostomy tu be placement for long-term nutritional support. However, I suspect that the patient needs to be intu bated for procedure because he appears to be rather tachypneic at this time. Once again, Dr. Nolan, thank you for this consultation. Dictated By: MARKOS CORTEZ/NTS Conf#: [id number] DID#: [id number] CC: VIVIANA NOLAN MD; WENDY LOVE MD; WEI SHAH [employer]ING SUPERVISOR;*EndCC*
--- NOTE | 2018-09-17 16:45 | PN ---
Date/Time of Note Date/Time of Note DATE: 09/17/18 TIME: 16:40 Assessment/Plan VTE Prophylaxis Risk score (from [facility])>0 risk: 7 SCD applied (from [facility]): Yes Pharmacological prophylaxis: NA/contraindicated Pharm contraindication: thrombocytopenia Lines/Catheters IV Catheter Type (from [facility]): [place] Lock Urinary Cath still in place: Yes Reason Cath still needed: urinary retention Assessment/Plan Hospital Course Patient continues on supplemental oxygen, desaturates easily. Will obtain GI consult for possible G-tube placement due to dysphagia and severe protein calorie malnutrition. Assessment/Plan -Dysphagia. Dr. Monterroso is asked to see patient in gastroenterology consultation for possible G-tube placement. -Hypoxic respiratory failure requiring mechanical ventilation, extubated. Dr. Mejias is following in pulmonology consultation. -Sepsis with shock, resolving. Dr. Sutton is following in infection disease con sultation. -Status post cardiac arrest. Dr. Hernández is following in cardiology consultation. -Left-sided pneumothorax, status post left side chest tube placement, s/p self d/c CT. -S/p pneumoperitoneum most likely due to cardiac arrest, resolved. Dr. Rivas is following in general surgery consultation. -Left axillary and brachial DVT, LUE swelling subsided, was on Lovenox which is currently held due to thrombocytopenia -Left lower lobe pneumonia -Severe emphysema -JEREMÍAS with possible chronic kidney disease. Dr Arvizu is following in nephrology consultation. -Schizoaffective disorder depressed type. Psychiatric consult is appreciated, continue Risperdal Depakote Further recommendations based on clinical course. Plan of care discussed with Dr. Juarez. Result Diagram: 09/16/18 0415 09/17/18 0340 Results 24hrs Laboratory Tests Test 09/17/18 03:40 Sodium Level 154 H Potassium Level 3.6 Chloride Level 112 H Carbon Dioxide Level 38 H Anion Gap 4 L Blood Urea Nitrogen 46 H Creatinine 0.80 Est Glomerular Filtrat Rate mL/min > 60 Glucose Level 165 Calcium Level 9.6 Phosphorus Level 2.8 Magnesium Level 2.9 H Exam/Review of Systems Exam Vitals Vital Signs Date Temp Pulse Resp B/P (MAP) Pulse Ox O2 O2 Flow FiO2 Time Delivery Rate 09/17/18 107 25 141/96 Nasal 3.0 14:00 (111) Cannula 09/17/18 95 13:15 09/17/18 96.3 12:00 09/16/18 36 09:45 Intake and Output 09/16/18 09/16/18 09/17/18 1515:00 23:00 07:00 IntakeIntake Total 150 ml 0 ml 120 ml OutputOutput Total 500 ml 930 ml 640 ml BalanceBalance -350 ml -930 ml -520 ml Exam Constitutional: alert, oriented Respiratory: diminished breath sounds Cardiovascular: regular rate and rhythm Gastrointestinal: soft, non-tender Musculoskeletal: nl extremities to inspection Extremities: normal pulses Neurological: nl mental status Results Results 24hrs Laboratory Tests Test 09/17/18 03:40 Sodium Level 154 H Potassium Level 3.6 Chloride Level 112 H Carbon Dioxide Level 38 H Anion Gap 4 L Blood Urea Nitrogen 46 H Creatinine 0.80 Est Glomerular Filtrat Rate mL/min > 60 Glucose Level 165 Calcium Level 9.6 Phosphorus Level 2.8 Magnesium Level 2.9 H Medications Medication Current Medications Ondansetron HCl (Zofran Inj) 4 mg Q6H PRN IV NAUSEA AND/OR VOMITING Last administered on 09/06/18 18:46; Admin Dose 4 MG; Start 08/26/18 at 23:30 Acetaminophen (Tylenol Supp) 650 mg Q4H PRN [place] PAIN LEVEL 1-3 OR FEVER; Start 08/26/18 at 23:30 Aspirin (Aspirin) 81 mg DAILY PO Last administered on 09/16/18 10:23; Admin D ose 81 MG; Start 08/29/18 at 09:00 Famotidine (Pepcid) 20 mg Q12 PO Last administered on 09/16/18 20:49; Admin Dose 20 MG; Start 08/29/18 at 21:00 Zolpidem Tartrate (Ambien) 5 mg HS PRN PO INSOMNIA Last administered on 09/10/18 20:31; Admin Dose 5 MG; Start 09/01/18 at 00:00 Guaifenesin/ Dextromethorphan (Robitussin Dm Liquid Cup) 5 ml Q6H PRN PO COUGH Last administered on 09/15/18 05:16; Admin Dose 5 ML; Start 09/01/18 at 20:00 Morphine Sulfate (morphine) 6 mg Q4H PRN PO SEVERE PAIN LEVEL 7-10 Last administered on 09/17/18 12:44; Admin Dose 6 MG; Start 09/04/18 at 21:30 Albuterol/ Ipratropium (Duoneb) 3 ml Q3H RESP THERAPY PRN HHN SHORTNESS OF BREATH Last administered on 09/12/18 18:47; Admin Dose 3 ML; Start 09/05/18 at 20:00 Methylprednisolone Sodium Succinate (Solu-Medrol) 40 mg Q6 IV Last administered on 09/17/18 12:44; Admin Dose 40 MG; Start 09/07/18 at 12:00 Alteplase, Recombinant (Cathflo (Activase)) 2 mg MAY REPEAT X1 PRN CATHETER IF CATHETER REMAINS OCCULUDED; Start 09/07/18 at 11:00 Amlodipine Besylate (Norvasc) 5 mg DAILY PO Last administered on 09/16/18 10:24; Admin Dose 5 MG; Start 09/10/18 at 09:00 Albuterol/ Ipratropium (Duoneb) 3 ml Q6H RESP THERAPY HHN Last administered on 09/17/18 13:15; Admin Dose 3 ML; Start 09/09/18 at 20:00 Lorazepam (Ativan) 1 mg Q6H PRN IV PSYCHOSIS Last administered on 09/16/18 13:05; Admin Dose 1 MG; Start 09/12/18 at 02:00 Haloperidol (Haldol) 2 mg PRN PRN IM AGITATION Last administered on 09/17/18 00:44; Admin Dose 2 MG; Start 09/13/18 at 06:30 Risperidone (Risperdal) 2 mg BID PO Last administered on 09/16/18 20:49; Admin Dose 2 MG; Start 09/14/18 at 21:00 Divalproex Sodium (Depakote Sprinkle) 250 mg Q8H PO Last administered on 09/17/18 13:09; Admin Dose 250 MG; Start 09/15/18 at 21:00 Dextrose 1,000 ml @ 75 mls/hr [id number] IV Last administered on 09/17/18 06:50; Admin Dose 75 MLS/HR; Start 09/17/18 at 06:30 HERMES HARRIS Sep 17, 2018 16:45
[2018-09-17] MEDS ORDERED: APIXABAN 5 MG TABLET PO SCH (21:00)
[2018-09-18] VITALS (32 sets, daily range): BP systolic 84–159; BP diastolic 59–110; PULSE 90–105; RESP 14–27
[2018-09-18] MEDS: METHYLPREDNISOLONE 40 MG INJ IV SCH ×5 (00:52→23:24)
[2018-09-18] MEDS: ALBUTEROL/IPRATROPIUM (NEB) 3 ML AMP HHN SCH ×4 (02:11→20:18)
[2018-09-18] MEDS: DIVALPROEX SPRINKLE 125 MG CAP PO SCH ×3 (04:14→20:41)
[2018-09-18] MEDS: DEXTROSE 5% 1,000 ML IV SCH ×3 (06:44→23:19)
--- NOTE | 2018-09-18 08:12 | PN ---
DATE: 09/18/2018 SUBJECTIVE: The patient remains tachypneic, currently on a Venturi mask. The patient is pending pos sible intubation. The patient had excellent urinary output over 2 liters. No other acute events not ed. No hemoptysis, hematemesis or hematochezia. OBJECTIVE: VITAL SIGNS: Blood pressure is 120/90, respirations 21, pulse 91, temperature 98.4. HEENT: Head is normocephalic. NECK: Supple. HEART: Regular rate. LUNGS: Show diminished breath sounds at the base. ABDOMEN: Soft, nontender to palpation without rebound or guarding. EXTREMITIES: Negative for clubbing, cyanosis, no edema. DERMATOLOGIC: No rashes. MUSCULOSKELETAL: No joint effusion. NEUROLOGIC: No change in exam. MEDICATIONS: Reviewed. LABORATORY DATA: Shows sodium of 154, potassium 3.9, chloride 112, BUN 42, creatinine 0.87, magnesiu m 2.8. CBC was reviewed. IMAGING STUDY: Chest x-ray was reviewed. ASSESSMENT AND PLAN: 1. Nonoliguric acute kidney injury with unknown baseline creatinine. Etiology of acute kidney injur y is secondary to hemodynamics. The patient's creatinine has improved. The patient does have underl db azotemia secondary to acute kidney injury, hypercatabolic state. We will continue to monitor, c ontinue supportive care, renally dose all medicines and avoid nephrotoxins. 2. Hypernatremia. Etiology was felt to be secondary to insensible losses. However, given the patie nt's increased urinary output, we will need to rule out diabetes insipidus. Plan at this point is to intensify the rate of D5 water 200 mL per hour. We will monitor serial sodium. We will check urine sodium, urine osmolarity. 3. Metabolic alkalosis with respiratory compensation. At this point, continue current treatment trae n. Continue IV hydration. Continue to monitor. 4. Anemia. Continue to monitor hemoglobin and hematocrit levels. 5. Mineral bone disorder. Monitor calcium and phosphorus levels. 6. Hypomagnesemia. Continue to monitor and replete as needed. 7. Diastolic heart failure. The patient is compensated. Continue to monitor, give intermittent diu retic therapy as needed. 8. Pleural effusion, possible parapneumonic. Continue to monitor. Consider thoracentesis. 9. Acute hypoxemic hypercapnic respiratory failure. The patient is on Venturi mask, decompensated. Pending possible intubation. 10. Acute encephalopathy, etiology is toxic metabolic. 11. Sepsis secondary to pneumonia. Continue current antibiotic regimen. 12. Deep vein thrombosis. Continue medical management. 13. Status post cardiac arrest. 14. Status post pneumothorax. 15. Status post pneumoperitoneum. Dictated By: JOE CHU/NTS Conf#: [id number] DID#: [id number] CC: WEI SHAH NP; VIVIANA NOLAN MD;*EndCC*
[2018-09-18] MEDS: AMLODIPINE 5 MG TAB PO SCH (09:00)
[2018-09-18] MEDS: ASPIRIN 81 MG TAB PO SCH (09:00)
[2018-09-18] MEDS: RISPERIDONE 1 MG TAB PO SCH ×2 (09:00→20:41)
[2018-09-18] MEDS: FAMOTIDINE 20 MG TAB PO SCH ×2 (09:00→20:41)
[2018-09-18] MEDS: BALSAM PERU/CASTOR OIL 60 GM TUBE TOP SCH (09:54)
--- NOTE | 2018-09-18 10:10 | CONS ---
Assessment/Plan Assessment/Plan Hospital Course (Demo Recall) IMP: 1.Hypotension-Now improved and tolerating norvasc. NL EF by echo this admit 2.resp failure s/p extubation 3.cardiac arrest 4.pneumoperitoneum-resolved 5.Positive troponin-now trended neg 6.renal failure-improved 7.Leukocytosis 8. anemia 9, Thrombocytopenia-ongoing some worsening 10.Resp failure-hypercapnic s/p intubation. s/p extubation but now transferred back to ICU for increasing resp distress 11.PNA-by cxr 12.PLeual effusion Recc: -IN ICU -Continue norvasc and follow BP clsoely -Continue asa -continue steroids/bronchodilators -Continue risperdal -follow MS closely -Follow volume status clsoely -consider thoracentesis -asp precautions -pnding G tube placement Consultation Date/Type/Reason Admit Date/Time Aug 27, 2018 at 00:03 Initial Consult Date 08/27/18 Type of Consult Cardiology Requesting Provider: VIVIANA NOLAN MD Date/Time of Note DATE: 09/18/18 TIME: 10:08 Exam/Review of Systems Vital Signs Vitals Vital Signs Date Temp Pulse Resp B/P (MAP) Pulse Ox O2 O2 Flow FiO2 Time Delivery Rate 09/18/18 100 12.0 40 09:59 09/18/18 Venti Mask 09:59 09/18/18 99 08:00 09/18/18 21 120/90 06:00 (100) 09/18/18 98.4 04:00 Intake and Output 09/17/18 09/17/18 09/18/18 1515:00 23:00 07:00 IntakeIntake Total 555 ml 630 ml 450 ml OutputOutput Total 750 ml 650 ml 600 ml BalanceBalance -195 ml -20 ml -150 ml Exam Exam Review of Systems: CONSTITUTIONAL: No fevers, chills. PULMONARY: No sob CARDIOVASCULAR: No chest pain/palpitations GASTROINTESTINAL: No nausea/vomiting. GENITOURINARY: No hematuria/dysuria. MUSCULOSKELETAL: No myagias/arthalgias. PSYCHIATRIC: The patient denies depression. NEUROLOGIC: somewhat lethargic Constitutional: alert Psych: no complaints ENMT: mucosa pink and moist Neck: supple, jvd (9 cm water) Respiratory: other (mild exp wheezing) Cardiovascular: regular rate and rhythm Gastrointestinal: soft, non-tender Musculoskeletal: muscle weakness (generalized) Extremities: edema (none) Neurological: lethargic (somewhat), other (No focal deficits) Labs Result Diagram: 09/18/18 0501 09/18/18 0501 Results 24hrs Laboratory Tests Test 09/18/18 05:01 White Blood Count 5.6 Red Blood Count 3.78 L Hemoglobin 10.6 L Hematocrit 34.8 L Mean Corpuscular Volume 92.1 Mean Corpuscular Hemoglobin 28.0 L Mean Corpuscular Hemoglobin Concent 30.5 L Red Cell Distribution Width 16.9 H Platelet Count 47 L Mean Platelet Volume 10.6 H Immature Granulocytes % 0.500 H Neutrophils % 92.9 H Lymphocytes % 4.3 L Monocytes % 2.3 Eosinophils % 0.0 Basophils % 0.0 Nucleated Red Blood Cells % 0.0 Immature Granulocytes # 0.030 Neutrophils # 5.2 Lymphocytes # 0.2 L Monocytes # 0.1 L Eosinophils # 0.0 Basophils # 0.0 Nucleated Red Blood Cells # 0.0 Sodium Level 154 H Potassium Level 3.9 Chloride Level 112 H Carbon Dioxide Level 40 H Anion Gap 2 L Blood Urea Nitrogen 42 H Creatinine 0.87 Est Glomerular Filtrat Rate mL/min > 60 Glucose Level 167 Calcium Level 9.3 Phosphorus Level 3.5 Magnesium Level 2.8 H Medications Medications Current Medications Ondansetron HCl (Zofran Inj) 4 mg Q6H PRN IV NAUSEA AND/OR VOMITING Last administered on 09/06/18at 18:46; Admin Dose 4 MG; Start 08/26/18 at 23:30 Acetaminophen (Tylenol Supp) 650 mg Q4H PRN [place] PAIN LEVEL 1-3 OR FEVER; Start 08/26/18 at 23:30 Aspirin (Aspirin) 81 mg DAILY PO Last administered on 09/16/18at 10:23; Admin Dose 81 MG; Start 08/29/18 at 09:00 Famotidine (Pepcid) 20 mg Q12 PO Last administered on 09/16/18at 20:49; Admin Dose 20 MG; Start 08/29/18 at 21:00 Zolpidem Tartrate (Ambien) 5 mg HS PRN PO INSOMNIA Last administered on 09/10/18at 20:31; Admin Dose 5 MG; Start 09/01/18 at 00:00 Guaifenesin/ Dextromethorphan (Robitussin Dm Liquid Cup) 5 ml Q6H PRN PO COUGH Last administered on 09/15/18 05:16; Admin Dose 5 ML; Start 09/01/18 at 20:00 Morphine Sulfate (morphine) 6 mg Q4H PRN PO SEVERE PAIN LEVEL 7-10 Last administered on 09/17/18 12:44; Admin Dose 6 MG; Start 09/04/18 at 21:30 Albuterol/ Ipratropium (Duoneb) 3 ml Q3H RESP THERAPY PRN HHN SHORTNESS OF BREATH Last administered on 09/12/18 18:47; Admin Dose 3 ML; Start 09/05/18 at 20:00 Methylprednisolone Sodium Succinate (Solu-Medrol) 40 mg Q6 IV Last administered on 09/18/18 05:45; Admin Dose 40 MG; Start 09/07/18 at 12:00 Alteplase, Recombinant (Cathflo (Activase)) 2 mg MAY REPEAT X1 PRN CATHETER IF CATHETER REMAINS OCCULUDED; Start 09/07/18 at 11:00 Amlodipine Besylate (Norvasc) 5 mg DAILY PO Last administered on 09/16/18 10:24; Admin Dose 5 MG; Start 09/10/18 at 09:00 Albuterol/ Ipratropium (Duoneb) 3 ml Q6H RESP THERAPY HHN Last administered on 09/18/18 09:44; Admin Dose 3 ML; Start 09/09/18 at 20:00 Lorazepam (Ativan) 1 mg Q6H PRN IV PSYCHOSIS Last administered on 09/16/18 13:05; Admin Dose 1 MG; Start 09/12/18 at 02:00 Haloperidol (Haldol) 2 mg PRN PRN IM AGITATION Last administered on 09/17/18 00:44; Admin Dose 2 MG; Start 09/13/18 at 06:30 Risperidone (Risperdal) 2 mg BID PO Last administered on 09/16/18 20:49; Admin Dose 2 MG; Start 09/14/18 at 21:00 Divalproex Sodium (Depakote Sprinkle) 250 mg Q8H PO Last administered on 09/17/18 13:09; Admin Dose 250 MG; Start 09/15/18 at 21:00 Dextrose 1,000 ml @ 100 mls/hr Q10H IV Last administered on 09/18/18at 09:57; Admin Dose 100 MLS/HR; Start 09/17/18 at 06:30 MITCHEL DESOUZA Sep 18, 2018 10:10
--- NOTE | 2018-09-18 10:46 | CONS ---
Consult Date/Type/Reason Admit Date/Time Aug 27, 2018 at 00:03 Initial Consult Date 08/27/18 Type of Consult Pulmonary Requesting Provider: VIVIANA NOLAN MD Date/Time of Note DATE: 09/18/18 TIME: 10:45 Subjective Patient continues Ventimask oxygen. Intermittent agitation this morning however he is agreeable to intubation prior to PEG tube placement. Objective Vital Signs Date Temp Pulse Resp B/P (MAP) Pulse Ox O2 O2 Flow FiO2 Time Delivery Rate 09/18/18 100 12.0 40 09:59 09/18/18 Venti Mask 09:59 09/18/18 99 08:00 09/18/18 21 120/90 06:00 (100) 09/18/18 98.4 04:00 Intake and Output 09/17/18 09/17/18 09/18/18 1515:00 23:00 07:00 IntakeIntake Total 555 ml 630 ml 450 ml OutputOutput Total 750 ml 650 ml 600 ml BalanceBalance -195 ml -20 ml -150 ml Exam GENERAL: Frail elderly gentleman VITAL SIGNS: per chart NECK: Supple. No JVD or lymphadenopathy. CARDIAC EXAM: S1, S2. No added sounds or murmurs. CHEST: Diminished air entry bilaterally ABDOMEN: Soft, nontender. No guarding or rebound. EXTREMITIES: No cyanosis, clubbing or edema. NEUROLOGIC: Generalized weakness. No focal deficits. Vent Setting Ventilator Support Mode: SPONT Fraction of Inspired Oxygen pe: 40 Positive End Expiratory Pressu: 5.0 Results/Medications Result Diagram: 09/18/18 0501 09/18/18 0501 Results 24 hrs Laboratory Tests Test 09/18/18 05:01 White Blood Count 5.6 Red Blood Count 3.78 L Hemoglobin 10.6 L Hematocrit 34.8 L Mean Corpuscular Volume 92.1 Mean Corpuscular Hemoglobin 28.0 L Mean Corpuscular Hemoglobin Concent 30.5 L Red Cell Distribution Width 16.9 H Platelet Count 47 L Mean Platelet Volume 10.6 H Immature Granulocytes % 0.500 H Neutrophils % 92.9 H Lymphocytes % 4.3 L Monocytes % 2.3 Eosinophils % 0.0 Basophils % 0.0 Nucleated Red Blood Cells % 0.0 Immature Granulocytes # 0.030 Neutrophils # 5.2 Lymphocytes # 0.2 L Monocytes # 0.1 L Eosinophils # 0.0 Basophils # 0.0 Nucleated Red Blood Cells # 0.0 Sodium Level 154 H Potassium Level 3.9 Chloride Level 112 H Carbon Dioxide Level 40 H Anion Gap 2 L Blood Urea Nitrogen 42 H Creatinine 0.87 Est Glomerular Filtrat Rate mL/min > 60 Glucose Level 167 Calcium Level 9.3 Phosphorus Level 3.5 Magnesium Level 2.8 H Medications Current Medications Ondansetron HCl (Zofran Inj) 4 mg Q6H PRN IV NAUSEA AND/OR VOMITING Last administered on 09/06/18 18:46; Admin Dose 4 MG; Start 08/26/18 at 23:30 Acetaminophen (Tylenol Supp) 650 mg Q4H PRN [place] PAIN LEVEL 1-3 OR FEVER; Start 08/26/18 at 23:30 Aspirin (Aspirin) 81 mg DAILY PO Last administered on 09/16/18 10:23; Admin Dose 81 MG; Start 08/29/18 at 09:00 Famotidine (Pepcid) 20 mg Q12 PO Last administered on 09/16/18 20:49; Admin Dose 20 MG; Start 08/29/18 at 21:00 Zolpidem Tartrate (Ambien) 5 mg HS PRN PO INSOMNIA Last administered on 09/10/18 20:31; Admin Dose 5 MG; Start 09/01/18 at 00:00 Guaifenesin/ Dextromethorphan (Robitussin Dm Liquid Cup) 5 ml Q6H PRN PO COUGH Last administered on 09/15/18 05:16; Admin Dose 5 ML; Start 09/01/18 at 20:00 Morphine Sulfate (morphine) 6 mg Q4H PRN PO SEVERE PAIN LEVEL 7-10 Last administered on 09/17/18 12:44; Admin Dose 6 MG; Start 09/04/18 at 21:30 Albuterol/ Ipratropium (Duoneb) 3 ml Q3H RESP THERAPY PRN HHN SHORTNESS OF BREATH Last administered on 09/12/18 18:47; Admin Dose 3 ML; Start 09/05/18 at 20:00 Methylprednisolone Sodium Succinate (Solu-Medrol) 40 mg Q6 IV Last administered on 09/18/18 05:45; Admin Dose 40 MG; Start 09/07/18 at 12:00 Alteplase, Recombinant (Cathflo (Activase)) 2 mg MAY REPEAT X1 PRN CATHETER IF CATHETER REMAINS OCCULUDED; Start 09/07/18 at 11:00 Amlodipine Besylate (Norvasc) 5 mg DAILY PO Last administered on 09/16/18 10:24; Admin Dose 5 MG; Start 09/10/18 at 09:00 Albuterol/ Ipratropium (Duoneb) 3 ml Q6H RESP THERAPY HHN Last administered on 09/18/18 09:44; Admin Dose 3 ML; Start 09/09/18 at 20:00 Lorazepam (Ativan) 1 mg Q6H PRN IV PSYCHOSIS Last administered on 09/16/18 13:05; Admin Dose 1 MG; Start 09/12/18 at 02:00 Haloperidol (Haldol) 2 mg PRN PRN IM AGITATION Last administered on 09/17/18 00:44; Admin Dose 2 MG; Start 09/13/18 at 06:30 Risperidone (Risperdal) 2 mg BID PO Last administered on 09/16/18 20:49; Admin Dose 2 MG; Start 09/14/18 at 21:00 Divalproex Sodium (Depakote Sprinkle) 250 mg Q8H PO Last administered on 09/17/18 13:09; Admin Dose 250 MG; Start 09/15/18 at 21:00 Dextrose 1,000 ml @ 100 mls/hr Q10H IV Last administered on 09/18/18 09:57; Admin Dose 100 MLS/HR; Start 09/17/18 at 06:30 Assessment/Plan Hospital Course (Demo Recall) iMP: 1. Acute on chronic hypoxic and hypercapnic respiratory failure--worse overnight with increased mucus plugging. 2. Pneumoperitoneum status post chest tube which patient pulled out 3. Encephalopathy toxic metabolic resolving 4. Advanced COPD 5. Hypernatremia likely free water deficit 6. Thrombocytopenia 7. Anemia RECS: 1. Continue ICU care 2. Maintain oxygen to keep Sp02 88-92%, Elective intubation prior to PEG tube placement 3. Aggressive suctioning/CPT 4. NPO PEG tube placement scheduled for this afternoon 5. Follow ABG/CXR 6. Strict aspiration precautions Critical care time 40 minutes. KHUSHI PATTON MD, [facility] Sep 18, 2018 10:46
--- NOTE | 2018-09-18 11:39 | CONS ---
Assessment/Plan Assessment/Plan Hospital Course (Demo Recall) Patient is on Venturi mask more lethargic today in no distress afebrile WBC 5.6 neutrophils 92.9 BUN 42 creatinine 0.87 Indwelling: Right IJ triple-lumen catheter, Sellers Physical examination: Well-developed chronically ill-appearing cachectic elderly man. Head atraumatic normocephalic sclera nonicteric, neck is supple chest rise symmetrical breath sounds diminished bases. Heart: S1-S2. Abdomen soft bowel sounds present. Extremities without edema/cyanosis Assessment: 1. Respiratory failure, s/p pneumonia 2. Dysphagia with ongoing aspiration 4. Pneumoperitoneum of unclear etiology, no perforation per surgical note, status post chest tube 5. Dementia 5. Anemia with progressive thrombocytopenia 6. History of non-ST elevation [place] 7. Status post cardiac arrest 8. RIJ TLC Plan: Remains unchanged, continue present care, aspiration precautions, plan for PEG Consultation Date/Type/Reason Admit Date/Time Aug 27, 2018 at 00:03 Initial Consult Date 08/27/18 Type of Consult ID Requesting Provider: VIVIANA NOLAN MD Date/Time of Note DATE: 09/18/18 TIME: 11:38 Exam/Review of Systems Exam Vitals Vital Signs Date Temp Pulse Resp B/P (MAP) Pulse Ox O2 O2 Flow FiO2 Time Delivery Rate 09/18/18 100 12.0 40 09:59 09/18/18 Venti Mask 09:59 09/18/18 99 08:00 09/18/18 21 120/90 06:00 (100) 09/18/18 98.4 04:00 Intake and Output 09/17/18 09/17/18 09/18/18 1515:00 23:00 07:00 IntakeIntake Total 555 ml 630 ml 450 ml OutputOutput Total 750 ml 650 ml 600 ml BalanceBalance -195 ml -20 ml -150 ml Results Result Diagram: 09/18/18 0501 09/18/18 0501 Results 24hrs Laboratory Tests Test 09/18/18 05:01 White Blood Count 5.6 Red Blood Count 3.78 L Hemoglobin 10.6 L Hematocrit 34.8 L Mean Corpuscular Volume 92.1 Mean Corpuscular Hemoglobin 28.0 L Mean Corpuscular Hemoglobin Concent 30.5 L Red Cell Distribution Width 16.9 H Platelet Count 47 L Mean Platelet Volume 10.6 H Immature Granulocytes % 0.500 H Neutrophils % 92.9 H Lymphocytes % 4.3 L Monocytes % 2.3 Eosinophils % 0.0 Basophils % 0.0 Nucleated Red Blood Cells % 0.0 Immature Granulocytes # 0.030 Neutrophils # 5.2 Lymphocytes # 0.2 L Monocytes # 0.1 L Eosinophils # 0.0 Basophils # 0.0 Nucleated Red Blood Cells # 0.0 Sodium Level 154 H Potassium Level 3.9 Chloride Level 112 H Carbon Dioxide Level 40 H Anion Gap 2 L Blood Urea Nitrogen 42 H Creatinine 0.87 Est Glomerular Filtrat Rate mL/min > 60 Glucose Level 167 Calcium Level 9.3 Phosphorus Level 3.5 Magnesium Level 2.8 H Medications Medication Current Medications Ondansetron HCl (Zofran Inj) 4 mg Q6H PRN IV NAUSEA AND/OR VOMITING Last administered on 09/06/18 18:46; Admin Dose 4 MG; Start 08/26/18 at 23:30 Acetaminophen (Tylenol Supp) 650 mg Q4H PRN [place] PAIN LEVEL 1-3 OR FEVER; Start 08/26/18 at 23:30 Aspirin (Aspirin) 81 mg DAILY PO Last administered on 09/16/18 10:23; Admin Dose 81 MG; Start 08/29/18 at 09:00 Famotidine (Pepcid) 20 mg Q12 PO Last administered on 09/16/18 20:49; Admin Dose 20 MG; Start 08/29/18 at 21:00 Zolpidem Tartrate (Ambien) 5 mg HS PRN PO INSOMNIA Last administered on 09/10/18 20:31; Admin Dose 5 MG; Start 09/01/18 at 00:00 Guaifenesin/ Dextromethorphan (Robitussin Dm Liquid Cup) 5 ml Q6H PRN PO COUGH Last administered on 09/15/18 05:16; Admin Dose 5 ML; Start 09/01/18 at 20:00 Morphine Sulfate (morphine) 6 mg Q4H PRN PO SEVERE PAIN LEVEL 7-10 Last administered on 09/17/18 12:44; Admin Dose 6 MG; Start 09/04/18 at 21:30 Albuterol/ Ipratropium (Duoneb) 3 ml Q3H RESP THERAPY PRN HHN SHORTNESS OF BREATH Last administered on 09/12/18 18:47; Admin Dose 3 ML; Start 09/05/18 at 20:00 Methylprednisolone Sodium Succinate (Solu-Medrol) 40 mg Q6 IV Last administered on 09/18/18 05:45; Admin Dose 40 MG; Start 09/07/18 at 12:00 Alteplase, Recombinant (Cathflo (Activase)) 2 mg MAY REPEAT X1 PRN CATHETER IF CATHETER REMAINS OCCULUDED; Start 09/07/18 at 11:00 Amlodipine Besylate (Norvasc) 5 mg DAILY PO Last administered on 09/16/18 10:24; Admin Dose 5 MG; Start 09/10/18 at 09:00 Albuterol/ Ipratropium (Duoneb) 3 ml Q6H RESP THERAPY HHN Last administered on 09/18/18 09:44; Admin Dose 3 ML; Start 09/09/18 at 20:00 Lorazepam (Ativan) 1 mg Q6H PRN IV PSYCHOSIS Last administered on 09/16/18 13:05; Admin Dose 1 MG; Start 09/12/18 at 02:00 Haloperidol (Haldol) 2 mg PRN PRN IM AGITATION Last administered on 09/17/18 00:44; Admin Dose 2 MG; Start 09/13/18 at 06:30 Risperidone (Risperdal) 2 mg BID PO Last administered on 09/16/18 20:49; Admin Dose 2 MG; Start 09/14/18 at 21:00 Divalproex Sodium (Depakote Sprinkle) 250 mg Q8H PO Last administered on 09/17/18 13:09; Admin Dose 250 MG; Start 09/15/18 at 21:00 Dextrose 1,000 ml @ 100 mls/hr Q10H IV Last administered on 09/18/18 09:57; Admin Dose 100 MLS/HR; Start 09/17/18 at 06:30 AALIYAH MEZA NP Sep 18, 2018 11:39
--- NOTE | 2018-09-18 14:02 | PN ---
Date/Time of Note Date/Time of Note DATE: 09/18/18 TIME: 13:59 Assessment/Plan [place] [facility] [place]: 8 [place] [facility] [place] Pharmacological prophylaxis: NA/contraindicated Pharm contraindication: thrombocytopenia, surgical contra Lines/Catheters [facility] Peripheral IV Urinary Cath still in place: Yes Reason Cath still needed: urinary retention Assessment/Plan Hospital Course Patient is awake alert continues on Ventimask. Patient is undergoing platelets transfusion for plan for G-tube placement today patient will get intubated prior to procedure. Assessment/Plan -Dysphagia. Dr. Munguia is following in gastroenterology consultation for possible G-tube placement. -Hypoxic respiratory failure requiring mechanical ventilation, extubated. Dr. Mejias is following in pulmonology consultation. -Sepsis with shock, resolving. Dr. Sutton is following in infection disease consultation. -Status post cardiac arrest. Dr. Hernández is following in cardiology consultati on. -Left-sided pneumothorax, status post left side chest tube placement, s/p self d/c CT. -S/p pneumoperitoneum most likely due to cardiac arrest, resolved. Dr. Rivas is following in general surgery consultation. -Left axillary and brachial DVT, LUE swelling subsided, was on Lovenox which is currently held due to thrombocytopenia -Left lower lobe pneumonia -Severe emphysema -JEREMÍAS with possible chronic kidney disease. Dr Arvizu is following in nephrology consultation. -Schizoaffective disorder depressed type. Psychiatric consult is appreciated, continue Risperdal Depakote Further recommendations based on clinical course. Plan of care discussed with Dr. Juarez. Result Diagram: 09/18/18 0501 09/18/18 0501 Results 24hrs Laboratory Tests Test 09/18/18 05:01 09/18/18 10:00 White Blood Count 5.6 Red Blood Count 3.78 L Hemoglobin 10.6 L Hematocrit 34.8 L Mean Corpuscular Volume 92.1 Mean Corpuscular Hemoglobin 28.0 L Mean Corpuscular Hemoglobin Concent 30.5 L Red Cell Distribution Width 16.9 H Platelet Count 47 L Mean Platelet Volume 10.6 H Immature Granulocytes % 0.500 H Neutrophils % 92.9 H Lymphocytes % 4.3 L Monocytes % 2.3 Eosinophils % 0.0 Basophils % 0.0 Nucleated Red Blood Cells % 0.0 Immature Granulocytes # 0.030 Neutrophils # 5.2 Lymphocytes # 0.2 L Monocytes # 0.1 L Eosinophils # 0.0 Basophils # 0.0 Nucleated Red Blood Cells # 0.0 Sodium Level 154 H Potassium Level 3.9 Chloride Level 112 H Carbon Dioxide Level 40 H Anion Gap 2 L Blood Urea Nitrogen 42 H Creatinine 0.87 Est Glomerular Filtrat Rate mL/min > 60 Glucose Level 167 Calcium Level 9.3 Phosphorus Level 3.5 Magnesium Level 2.8 H Urine Color STRAW Urine Clarity CLEAR Urine pH 6.0 Urine Specific [place] 1.009 Urine Ketones NEGATIVE Urine Nitrite NEGATIVE Urine Bilirubin NEGATIVE Urine Urobilinogen NEGATIVE Urine Leukocyte Esterase NEGATIVE Urine Microscopic RBC 4 Urine Microscopic WBC 1 Urine Hemoglobin 2+ H Urine Osmolality 294 Urine Random Creatinine 24.08 Urine Random Sodium 35 Urine Glucose 1+ H Urine Total Protein 34.0 H Exam/Review of Systems Exam Vitals Vital Signs Date Temp Pulse Resp B/P (MAP) Pulse Ox O2 O2 Flow FiO2 Time Delivery Rate 09/18/18 98 27 133/91 98 Venturi 13:00 (105) Mask 09/18/18 97.6 12:00 09/18/18 12.0 40 09:59 Intake and Output 09/17/18 09/17/18 09/18/18 1515:00 23:00 07:00 IntakeIntake Total 555 ml 630 ml 476.7 ml OutputOutput Total 750 ml 650 ml 680 ml BalanceBalance -195 ml -20 ml -203.3 ml Exam Constitutional: alert, oriented Respiratory: diminished breath sounds Cardiovascular: regular rate and rhythm Gastrointestinal: soft, non-tender Musculoskeletal: nl extremities to inspection Extremities: normal pulses Neurological: nl mental status Results Results 24hrs Laboratory Tests Test 09/18/18 05:01 09/18/18 10:00 White Blood Count 5.6 Red Blood Count 3.78 L Hemoglobin 10.6 L Hematocrit 34.8 L Mean Corpuscular Volume 92.1 Mean Corpuscular Hemoglobin 28.0 L Mean Corpuscular Hemoglobin Concent 30.5 L Red Cell Distribution Width 16.9 H Platelet Count 47 L Mean Platelet Volume 10.6 H Immature Granulocytes % 0.500 H Neutrophils % 92.9 H Lymphocytes % 4.3 L Monocytes % 2.3 Eosinophils % 0.0 Basophils % 0.0 Nucleated Red Blood Cells % 0.0 Immature Granulocytes # 0.030 Neutrophils # 5.2 Lymphocytes # 0.2 L Monocytes # 0.1 L Eosinophils # 0.0 Basophils # 0.0 Nucleated Red Blood Cells # 0.0 Sodium Level 154 H Potassium Level 3.9 Chloride Level 112 H Carbon Dioxide Level 40 H Anion Gap 2 L Blood Urea Nitrogen 42 H Creatinine 0.87 Est Glomerular Filtrat Rate mL/min > 60 Glucose Level 167 Calcium Level 9.3 Phosphorus Level 3.5 Magnesium Level 2.8 H Urine Color STRAW Urine Clarity CLEAR Urine pH 6.0 Urine Specific [place] 1.009 Urine Ketones NEGATIVE Urine Nitrite NEGATIVE Urine Bilirubin NEGATIVE Urine Urobilinogen NEGATIVE Urine Leukocyte Esterase NEGATIVE Urine Microscopic RBC 4 Urine Microscopic WBC 1 Urine Hemoglobin 2+ H Urine Osmolality 294 Urine Random Creatinine 24.08 Urine Random Sodium 35 Urine Glucose 1+ H Urine Total Protein 34.0 H Medications Medication Current Medications Ondansetron HCl (Zofran Inj) 4 mg Q6H PRN IV NAUSEA AND/OR VOMITING Last administered on 09/06/18 18:46; Admin Dose 4 MG; Start 08/26/18 at 23:30 Acetaminophen (Tylenol Supp) 650 mg Q4H PRN [place] PAIN LEVEL 1-3 OR FEVER; Start 08/26/18 at 23:30 Aspirin (Aspirin) 81 mg DAILY PO Last administered on 09/16/18 10:23; Admin Dose 81 MG; Start 08/29/18 at 09:00 Famotidine (Pepcid) 20 mg Q12 PO Last administered on 09/16/18 20:49; Admin Dose 20 MG; Start 08/29/18 at 21:00 Zolpidem Tartrate (Ambien) 5 mg HS PRN PO INSOMNIA Last administered on 09/10/18 20:31; Admin Dose 5 MG; Start 09/01/18 at 00:00 Guaifenesin/ Dextromethorphan (Robitussin Dm Liquid Cup) 5 ml Q6H PRN PO COUGH Last administered on 09/15/18 05:16; Admin Dose 5 ML; Start 09/01/18 at 20:00 Morphine Sulfate (morphine) 6 mg Q4H PRN PO SEVERE PAIN LEVEL 7-10 Last ad ministered on 09/17/18 12:44; Admin Dose 6 MG; Start 09/04/18 at 21:30 Albuterol/ Ipratropium (Duoneb) 3 ml Q3H RESP THERAPY PRN HHN SHORTNESS OF BREATH Last administered on 09/12/18 18:47; Admin Dose 3 ML; Start 09/05/18 at 20:00 Methylprednisolone Sodium Succinate (Solu-Medrol) 40 mg Q6 IV Last administered on 09/18/18 12:57; Admin Dose 40 MG; Start 09/07/18 at 12:00 Alteplase, Recombinant (Cathflo (Activase)) 2 mg MAY REPEAT X1 PRN CATHETER IF CATHETER REMAINS OCCULUDED; Start 09/07/18 at 11:00 Amlodipine Besylate (Norvasc) 5 mg DAILY PO Last administered on 09/16/18 10:24; Admin Dose 5 MG; Start 09/10/18 at 09:00 Albuterol/ Ipratropium (Duoneb) 3 ml Q6H RESP THERAPY HHN Last administered on 09/18/18 09:44; Admin Dose 3 ML; Start 09/09/18 at 20:00 Lorazepam (Ativan) 1 mg Q6H PRN IV PSYCHOSIS Last administered on 09/16/18 13:05; Admin Dose 1 MG; Start 09/12/18 at 02:00 Haloperidol (Haldol) 2 mg PRN PRN IM AGITATION Last administered on 09/17/18 00:44; Admin Dose 2 MG; Start 09/13/18 at 06:30 Risperidone (Risperdal) 2 mg BID PO Last administered on 09/16/18 20:49; Admin Dose 2 MG; Start 09/14/18 at 21:00 Divalproex Sodium (Depakote Sprinkle) 250 mg Q8H PO Last administered on 09/17/18 13:09; Admin Dose 250 MG; Start 09/15/18 at 21:00 Dextrose 1,000 ml @ 100 mls/hr Q10H IV Last administered on 09/18/18 09:57; Admin Dose 100 MLS/HR; Start 09/17/18 at 06:30 HERMES HARRIS Sep 18, 2018 14:02
[2018-09-18] MEDS ORDERED: PROPOFOL 100 ML ONE (14:58)
[2018-09-18] MEDS ORDERED: PROPOFOL 100 ML IV SCH (15:00)
[2018-09-18] MEDS: PROPOFOL 100 ML IV SCH (15:08)
--- NOTE | 2018-09-18 16:52 | SP ---
DATE OF PROCEDURE: PROCEDURE: Endotracheal intubation. INDICATION: Respiratory distress, pending G-tube placement. DESCRIPTION OF PROCEDURE: The patient was placed in supine position, neck extended. Blood pressure, EKG and pulse oximetry were continuously monitored. He was given 10 mg of etomidate and 100 mg of s uccinylcholine. Vocal cords were visualized and a size 7.5 endotracheal tube was passed through the vocal cords and secured at 23 cm to the lip. The patient had equal breath sounds bilaterally with po sitive CO2 capnometer. He tolerated the procedure well without complication. Post-intubation, chest x-ray and ABG are pending. Dictated By: KHUSHI PATTON MD SV/NTS Conf#: [id number] DID#: [id number] CC: VIVIANA NOLAN MD; WENDY LOVE MD; WEI SHAH [employer];*EndCC*
[2018-09-18] MEDS ORDERED: CEFAZOLIN 1 GM/50 ML (PMX) 50 ML IVPB ONE (18:11)
--- NOTE | 2018-09-18 18:13 | PREAC ---
Date/Time of Note Date/Time of Note DATE: 09/18/18 TIME: 18:12 Anesthesia Eval and Record Evaluation Time Pre-Procedure Interview DATE: 09/18/18 TIME: 18:12 Age 68 Sex male NPO: 8 hrs Preoperative diagnosis dysphagia Planned procedure peg Past Medical History Past Medical History: Includes Cardio: HTN, Dyslipidemia, CAD Endo: Diabetes Pulm: COPD, Other (resp failure) Musculoskeletal: Osteoarthritis GI: GERD Heme: Anemia Surgery & Anesthesia Issues No known issue Meds Anticoagulation: No Beta Ira within 24 hr: No Reason Beta Ira not given: Pt. not on B-Ira Reported Medications Docusate Sodium* (Colace*) 100 Mg Capsule, 100 MG PO Q24H PRN for CONSTIPATION, #30 CAP 08/26/18 Polyethylene Glycol* (Miralax*) 17 Gm Powd.pack, 17 GM PO DAILY PRN for NEEDED, #30 PACKET 08/26/18 Acetaminophen* (Acetaminophen*) 325 Mg Tablet, 650 MG PO Q4H PRN for PAIN - 05/15, #30 TAB AND FEVER>101F 08/26/18 Sennosides* (Senna Lax*) 8.6 Mg Tablet, 1 TAB PO NEEDED, TAB 08/26/18 Mv,Minerals/Fa/Lycopene/Ginkgo (ONE DAILY MEN'S 50+ TABLET) 1 Each Tablet, 1 EACH PO DAILY, TAB 08/26/18 Divalproex Sodium* (Depakote*) 125 Mg Tablet.dr, 250 MG PO Q8H, #90 TAB 08/26/18 Quetiapine Fumarate* (Seroquel*) 50 Mg Tablet, 50 MG PO Q8H, TAB 08/26/18 Ipratropium-Albuterol (Ipratropium-Albuterol) 0.5-3 Mg/3 Ml Ampul.neb, 3 ML INHALATION Q4H PRN for WHEEZING AND SOB, #30 VIAL 08/26/18 Budesonide-Formoterol Fumarate* (Symbicort*) 160-4.5 Hfa.aer.ad, 2 PUFF IN HALATION BID, #1 EACH 08/26/18 Current Medications Ondansetron HCl (Zofran Inj) 4 mg Q6H PRN IV NAUSEA AND/OR VOMITING Last administered on 09/06/18at 18:46; Admin Dose 4 MG; Start 08/26/18 at 23:30 Acetaminophen (Tylenol Supp) 650 mg Q4H PRN [place] PAIN LEVEL 1-3 OR FEVER; Start 08/26/18 at 23:30 Aspirin (Aspirin) 81 mg DAILY PO Last administered on 09/16/18 10:23; Admin Dose 81 MG; Start 08/29/18 at 09:00 Famotidine (Pepcid) 20 mg Q12 PO Last administered on 09/16/18 20:49; Admin Dose 20 MG; Start 08/29/18 at 21:00 Zolpidem Tartrate (Ambien) 5 mg HS PRN PO INSOMNIA Last administered on 09/10/18 20:31; Admin Dose 5 MG; Start 09/01/18 at 00:00 Guaifenesin/ Dextromethorphan (Robitussin Dm Liquid Cup) 5 ml Q6H PRN PO COUGH Last administered on 09/15/18 05:16; Admin Dose 5 ML; Start 09/01/18 at 20:00 Morphine Sulfate (morphine) 6 mg Q4H PRN PO SEVERE PAIN LEVEL 7-10 Last administered on 09/17/18 12:44; Admin Dose 6 MG; Start 09/04/18 at 21:30 Albuterol/ Ipratropium (Duoneb) 3 ml Q3H RESP THERAPY PRN HHN SHORTNESS OF BREATH Last administered on 09/12/18 18:47; Admin Dose 3 ML; Start 09/05/18 at 20:00 Methylprednisolone Sodium Succinate (Solu-Medrol) 40 mg Q6 IV Last administered on 09/18/18 12:57; Admin Dose 40 MG; Start 09/07/18 at 12:00 Alteplase, Recombinant (Cathflo (Activase)) 2 mg MAY REPEAT X1 PRN CATHETER IF CATHETER REMAINS OCCULUDED; Start 09/07/18 at 11:00 Amlodipine Besylate (Norvasc) 5 mg DAILY PO Last administered on 09/16/18 10:24; Admin Dose 5 MG; Start 09/10/18 at 09:00 Albuterol/ Ipratropium (Duoneb) 3 ml Q6H RESP THERAPY HHN Last administered on 09/18/18 14:29; Admin Dose 3 ML; Start 09/09/18 at 20:00 Lorazepam (Ativan) 1 mg Q6H PRN IV PSYCHOSIS Last administered on 09/16/18 13:05; Admin Dose 1 MG; Start 09/12/18 at 02:00 Haloperidol (Haldol) 2 mg PRN PRN IM AGITATION Last administered on 09/17/18at 00:44; Admin Dose 2 MG; Start 09/13/18 at 06:30 Risperidone (Risperdal) 2 mg BID PO Last administered on 09/16/18 20:49; Admin Dose 2 MG; Start 09/14/18 at 21:00 Divalproex Sodium (Depakote Sprinkle) 250 mg Q8H PO Last administered on 09/17/18 13:09; Admin Dose 250 MG; Start 09/15/18 at 21:00 Dextrose 1,000 ml @ 100 mls/hr Q10H IV Last administered on 09/18/18 09:57; Admin Dose 100 MLS/HR; Start 09/17/18 at 06:30 Propofol 100 ml @ 1.875 mls/ hr Q12H IV Last administered on 09/18/18at 15:08; Admin Dose 1.875 MLS/HR; Start 09/18/18 at 15:30 Meds reviewed: Yes Allergies Coded Allergies: No Known Allergy (Unverified , 08/26/18) Allergies Reviewed: Yes Labs/Studies Labs Reviewed: Reviewed by anesthesiologist Result Diagram: 09/18/18 0501 09/18/18 1353 Laboratory Tests 09/18/18 05:01 09/18/18 13:53 Blood Bank Test 09/18/18 05:01 Antibody Screen NEGATIVE Blood Product Summary Counts Blood Type O POSITIVE test: Negative Studies: ECG Pre-procedure Exam Last vitals Vital Signs Date Temp Pulse Resp B/P (MAP) Pulse Ox O2 O2 Flow FiO2 Time Delivery Rate 09/18/18 90 16 116/103 100 17:30 (107) 09/18/18 Mechanical 17:00 Ventilator 09/18/18 98.0 16:00 09/18/18 100 14:55 09/18/18 12.0 09:59 Airway: Adequate mouth opening, Adequate thyromental dist Mallampati: Mallampati II Teeth: Normal Lung: Normal Heart: Normal ASA Physical Status ASA physical status: 3 Emergency: None Planned Anesthetic General/MAC: ETT Pre-operative Attestations Prior to commencing anesthesia and surgery, the patient was re-evaluated, there was verification of: *The patient's identity *The results of appropriate recent lab work and preoperative vital signs *The above evaluation not changing prior to induction *Anesthetic plan, risk benefits, alternative and complications discussed with patient/family; questions answered; patient/family understands, accepts and wishes to proceed. NILAY FUENTES Sep 18, 2018 18:13
[2018-09-18] MEDS ORDERED: PROPOFOL 20 ML ONE (18:15)
[2018-09-18] MEDS ORDERED: PHENYLephrine (100 MCG/ML) 5ML SYG ONE (18:16)
--- NOTE | 2018-09-18 19:03 | OPR ---
Date/Time of Note Date/Time of Note DATE: 09/18/18 TIME: 18:58 Operative Report Procedure Date: Sep 18, 2018 Preoperative Diagnosis dysphagia Postoperative Diagnosis same Operation/Procedure Performed egd and peg Surgeon see signature line Program Developer none Anesthesia Type: MAC Anesthesiologist: NILAY FUENTES Estimated Blood Loss: none Transfusion none Specimen none Grafts/Implants none Complications none Pt Condition Post Procedure: stable Disposition: other Indications dysphagia Procedure Description egd and percutaneous endoscopic gastrostomy done MARKOS GARCIA MD Sep 18, 2018 19:03
--- NOTE | 2018-09-18 20:11 | PAC ---
Date/Time of Note Date/Time of Note DATE: 09/18/18 TIME: 20:10 Post-Anesthesia Notes Post-Anesthesia Note Last documented vital signs Vital Signs Date Temp Pulse Resp B/P (MAP) Pulse Ox O2 O2 Flow FiO2 Time Delivery Rate 09/18/18 94 20:00 09/18/18 18 128/95 98 18:30 (106) 09/18/18 Mechanical 18:00 Ventilator 09/18/18 100 17:30 09/18/18 98.0 16:00 09/18/18 12.0 14:27 Activity: WNL Respiratory function: WNL Cardiovascular function: WNL Mental status: Baseline Pain reasonably controlled: Yes Hydration appropriate: Yes Nausea/Vomiting absent: Yes NILAY FUENTES Sep 18, 2018 20:11
--- NOTE | 2018-09-18 21:29 | GILP ---
DATE OF PROCEDURE: NAME OF PROCEDURE: Esophagogastroduodenoscopy, percutaneous endoscopic gastrostomy tube placement. PREOPERATIVE DIAGNOSIS: The patient is presenting with a history of difficulty in swallowing and he has aspiration pneumonia. Because of this, percutaneous endoscopic gastrostomy tube placement has be en requested and that needs to be performed now. POSTOPERATIVE DIAGNOSIS: The patient is presenting with a history of difficulty in swallowing and he has aspiration pneumonia. Because of this, percutaneous endoscopic gastrostomy tube placement has b een requested and that needs to be performed now. DESCRIPTION OF PROCEDURE: After the informed written consent was obtained, the patient was asked to lay in the supine position. Intravenous anesthesia was given by anesthesiologist, Dr. Villarreal. Wh en the patient became somnolent, the Olympus video upper endoscope was inserted into the oropharynx, then into the esophagus. Esophagus appeared normal. Stomach appeared normal. Duodenum appeared nor mal. Scope at this time was withdrawn to the level of the gastric cavity. Anterior abdominal wall w as prepared with Betadine and alcohol. A 2 mL of 2% Xylocaine was infiltrated at the endoscopic illu minating site. A 5 mm incision was made by using the scalpel. Through this incision, trocar was ins erted into the stomach, and after removing the stylet, the guidewire was inserted into the stomach an d the guidewire was grabbed with a polypectomy snare and then it was brought out through the mouth al dereje with the endoscope. To this end of the guidewire, a #20 Microvasive G-tube was tied in a loop fa shion and then it was brought out through the abdominal wall incision. Retention bumper was placed o césar the G-tube close to the skin. Tapered end of the gastrostomy tube was cut. The adapter was plac ed at the tip of the tube. The procedure was terminated. PLAN: Recommend starting G-tube feeding in the a.m. Dictated By: MARKOS CORTEZ/NTS Conf#: [id number] DID#: [id number] CC: VIVIANA NOLAN MD; JAIME TEE MD; WENDY LOVE MD;*EndCC*
[2018-09-19] VITALS (36 sets, daily range): BP systolic 81–130; BP diastolic 60–94; PULSE 85–97; RESP 16–43
[2018-09-19] MEDS: ALBUTEROL/IPRATROPIUM (NEB) 3 ML AMP HHN SCH ×3 (02:15→19:16)
[2018-09-19] MEDS: PROPOFOL 100 ML IV SCH ×2 (04:14→12:10)
[2018-09-19] MEDS: DIVALPROEX SPRINKLE 125 MG CAP PO SCH ×3 (04:15→21:22)
[2018-09-19] MEDS: METHYLPREDNISOLONE 40 MG INJ IV SCH ×4 (05:50→23:53)
--- NOTE | 2018-09-19 07:56 | PN ---
DATE: 09/19/2018 SUBJECTIVE: The patient remains intubated. The patient noted to have excellent urinary output. The patient had percutaneous endoscopic gastrostomy tube placed yesterday. No other acute events noted. OBJECTIVE: VITAL SIGNS: Blood pressure is 128/34, respirations 24, pulse 95, temperature 98.0. HEENT: Head is normocephalic. NECK: Supple. HEART: Regular rate. LUNGS: Show diminished breath sounds at the base. ABDOMEN: Soft, nontender to palpation without rebound or guarding. EXTREMITIES: Negative for clubbing, cyanosis, no edema. DERMATOLOGIC: No rashes. MUSCULOSKELETAL: No joint effusion. NEUROLOGIC: No change in exam. MEDICATIONS: Reviewed. LABORATORY DATA: Shows urine osmolarity of 294. Urine sodium of 35. Urine creatinine of 24. The p atient has a serum sodium level of 151, potassium 2.4, BUN 39, creatinine 0.79, magnesium 2.6. White count 4.1, hemoglobin 8.7, and platelet count is 85. ASSESSMENT AND PLAN: 1. Hypernatremia. 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 The patient's urine osmolarity is inappropriately low for the patient's level o f hypernatremia. Plan at this point is to give a trial of desmopressin to see if the patient has cli nical response. We will continue to monitor serum sodium levels. Continue free water flushes, anthony nue D5 water. If the patient should fail to response to desmopressin, the patient likely then has a nephrogenic diabetes insipidus and possible recent acute kidney injury. We then consider placing the patient on hydrochlorothiazide and/or amiloride. We will monitor closely. 2. Nonoliguric acute kidney injury with unknown baseline creatinine. Etiology is secondary to hemod ynamics, questionable tubular injury. The patient's renal function has improved. Although he contin ues to have underlying azotemia likely due to acute kidney injury, hypercatabolic state. We will con tinue to monitor, continue supportive care, renally dose all medicines and avoid nephrotoxins. 3. Metabolic acidosis with respiratory compensation. Continue to monitor. 4. Anemia. Monitor hemoglobin and hematocrit levels. 5. Mineral bone disorder, monitor calcium and phosphorus levels. 6. Hypomagnesemia. Continue to monitor and replete as needed. 7. History of diastolic heart failure, currently compensated. Continue to monitor. 8. Pleural effusion. Continue to observe. Consider thoracentesis. 9. Ventilator-dependent respiratory failure. Vent settings and ABG was reviewed. Continue to monit or. Follow up with pulmonary. 10. Acute encephalopathy, etiology is toxic metabolic. 11. Dysphagia status post percutaneous endoscopic gastrostomy. The patient will be starting tube fe eding. 11. Sepsis secondary to pneumonia. Continue antibiotic regimen. 12. Deep vein thrombosis. Continue medical management. 13. Status post cardiac arrest. 14. Status post pneumothorax. 15. Status post pneumoperitoneum. Dictated By: JOE BLACK DO NR/NTS Conf#: [id number] DID#: [id number] CC: VIVIANA NOLAN MD; WENDY LOVE MD; WEI SHAH PADDER;*EndCC*
[2018-09-19] MEDS: FAMOTIDINE 20 MG TAB PO SCH ×2 (08:15→21:22)
[2018-09-19] MEDS: ASPIRIN 81 MG TAB PO SCH (08:15)
[2018-09-19] MEDS: RISPERIDONE 1 MG TAB PO SCH ×2 (08:15→21:22)
[2018-09-19] MEDS: AMLODIPINE 5 MG TAB PO SCH (08:16)
[2018-09-19] MEDS: BALSAM PERU/CASTOR OIL 60 GM TUBE TOP SCH (08:16)
[2018-09-19] MEDS: POTASSIUM CHLORIDE 100 ML IVPB SCH ×2 (08:18→10:48)
[2018-09-19] MEDS: DEXTROSE 5% 1,000 ML IV SCH (08:23)
--- NOTE | 2018-09-19 09:46 | CONS ---
Consult Date/Type/Reason Admit Date/Time Aug 27, 2018 at 00:03 Initial Consult Date 08/27/18 Type of Consult Pulmonary Requesting Provider: VIVIANA NOLAN MD Date/Time of Note DATE: 09/19/18 TIME: 09:45 Subjective Intubated yesterday for elective PEG tube placement. Comfortable this morning opens eyes on decrease sedation remains hemodynamically stable. PEG tube was placed without complication. Objective Vital Signs Date Temp Pulse Resp B/P (MAP) Pulse Ox O2 O2 Flow FiO2 Time Delivery Rate 09/19/18 92 37 108/71 Mechanical 09:00 (83) Ventilator 09/19/18 98.8 95 08:00 09/19/18 50 08:00 09/18/18 12.0 14:27 Intake and Output 09/18/18 09/18/18 09/19/18 1515:00 23:00 07:00 IntakeIntake Total 800.0 ml 819.8900 ml 741.250 ml OutputOutput Total 500 ml 790 ml 600 ml BalanceBalance 300.0 ml 29.8900 ml 141.250 ml Exam GENERAL: Frail elderly gentleman, on mechanical ventilation orally intubated VITAL SIGNS: per chart NECK: Supple. No JVD or lymphadenopathy. CARDIAC EXAM: S1, S2. No added sounds or murmurs. CHEST: Diminished air entry bilaterally ABDOMEN: Soft, nontender. No guarding or rebound. EXTREMITIES: No cyanosis, clubbing or edema. NEUROLOGIC: Generalized weakness. No focal deficits. Vent Setting Ventilator Support Mode: AC Fraction of Inspired Oxygen pe: 50 Positive End Expiratory Pressu: 5.0 Results/Medications Result Diagram: 09/19/18 0450 09/19/18 0439 Results 24 hrs Laboratory Tests Test 09/18/18 10:00 09/18/18 13:53 09/18/18 16:00 09/18/18 18:02 Urine Color STRAW Urine Clarity CLEAR Urine pH 6.0 Urine Specific 1.009 [place] Urine Ketones NEGATIVE Urine Nitrite NEGATIVE Urine Bilirubin NEGATIVE Urine NEGATIVE Urobilinogen Urine Leukocyte NEGATIVE Esterase Urine 4 Microscopic RBC Urine 1 Microscopic WBC Urine Hemoglobin 2+ H Urine Osmolality 294 Urine Random 24.08 Creatinine Urine Random 35 Sodium Urine Glucose 1+ H Urine Total 34.0 H Protein Sodium Level 151 H Potassium Level 3.6 Chloride Level 110 Carbon Dioxide 38 H Level Anion Gap 3 L Blood Urea 40 H Nitrogen Creatinine 0.74 Est Glomerular > 60 Filtrat Rate mL/min Glucose Level 149 Calcium Level 8.9 Blood Gas Blood arterial Specimen Source Arterial Blood 09/11/2018 4:01:0 Date Drawn 3 PM Arterial Blood 7.508 H pH (Temp corrected) Arterial Blood 45.7 H pCO2 (Temp correct) Arterial Blood 400.8 H pO2 (Temp corrected) Arterial Blood 35.5 H HCO3 Arterial Blood 11.2 H Base Excess Arterial Blood 99.0 H Oxygen Saturatio n Miller Test ACCEPTAB Arterial Blood Right Radial Gas Puncture Site Arterial 0.3 Blood Carboxyhem oglobin Arterial Blood 0.3 Methemoglobin Blood Gas A-a O2 266.5 H Differential Oxyhemoglobin 98.4 Percent Blood Gas 37.0 Temperature Blood Gas 20.0 Respiration Rate Blood Gas Actual 20 Respiration Rate Blood Gas VENT - AC Modality FiO2 100.0 Blood Gas Tidal 500.0 Volume Blood Gas Low 5.0 PEEP Setting Blood Gas JASON RT Notified Whom Blood Gas 09/18/2018 4:19: Notified Time 28 PM Prothrombin Time 13.4 Prothrombin Time 1.0 Ratio INR 1.01 International Normalized Ratio Activated 28.5 Partial Thrombop last Time Test 09/19/18 04:39 09/19/18 04:50 09/19/18 07:00 Sodium Level 151 H Potassium Level 3.4 L Chloride Level 109 Carbon Dioxide 40 H Level Anion Gap 2 L Blood Urea 39 H Nitrogen Creatinine 0.79 Est Glomerular > 60 Filtrat Rate mL/min Glucose Level 179 Calcium Level 8.5 Phosphorus Level 3.1 Magnesium Level 2.6 H White Blood 4.1 #L Count Red Blood Count 3.13 L Hemoglobin 8.7 L Hematocrit 29.1 L Mean Corpuscular 93.0 Volume Mean Corpuscular 27.8 L Hemoglobin Mean Corpuscular 29.9 L Hemoglobin Alisson nt Red Cell 17.0 H Distribution Width Platelet Count 85 #L Mean Platelet 11.2 H Volume Immature 0.500 H Granulocytes % Neutrophils % 89.8 H Lymphocytes % 6.1 L Monocytes % 3.6 Eosinophils % 0.0 Basophils % 0.0 Nucleated Red 0.0 Blood Cells % Immature 0.020 Granulocytes # Neutrophils # 3.7 Lymphocytes # 0.3 L Monocytes # 0.2 L Eosinophils # 0.0 Basophils # 0.0 Nucleated Red 0.0 Blood Cells # Lab Scanned BLOOD TRANSFUSI Report ON Blood Gas Blood arterial Specimen Source Arterial Blood 09/19/2018 7:45: Date Drawn 22 AM Arterial Blood 7.490 H pH (Temp corrected) Arterial Blood 49.1 H pCO2 (Temp correct) Arterial Blood 59.9 L pO2 (Temp corrected) Arterial Blood 36.6 H HCO3 Arterial Blood 11.8 H Base Excess Arterial Blood 89.4 L Oxygen Saturatio n Miller Test ACCEPTAB Arterial Blood Right Radial Gas Puncture Site Arterial 0.3 Blood Carboxyhem oglobin Arterial Blood 0.3 Methemoglobin Blood Gas A-a O2 241.4 H Differential Oxyhemoglobin 88.9 L Percent Blood Gas 37.0 Temperature Blood Gas 16.0 Respiration Rate Blood Gas Actual 22 Respiration Rate Blood Gas VENT - AC Modality FiO2 50.0 Blood Gas Tidal 450.0 Volume Blood Gas Low 5.0 PEEP Setting Blood Gas DT Notified Whom Blood Gas 09/19/2018 8:13: Notified Time 23 AM Medications Current Medications Ondansetron HCl (Zofran Inj) 4 mg Q6H PRN IV NAUSEA AND/OR VOMITING Last administered on 09/06/18 18:46; Admin Dose 4 MG; Start 08/26/18 at 23:30 Acetaminophen (Tylenol Supp) 650 mg Q4H PRN MS PAIN LEVEL 1-3 OR FEVER; Start 08/26/18 at 23:30 Aspirin (Aspirin) 81 mg DAILY PO Last administered on 09/19/18 08:15; Admin Dose 81 MG; Start 08/29/18 at 09:00 Famotidine (Pepcid) 20 mg Q12 PO Last administered on 09/19/18 08:15; Admin Dose 20 MG; Start 08/29/18 at 21:00 Zolpidem Tartrate (Ambien) 5 mg HS PRN PO INSOMNIA Last administered on 09/10/18 20:31; Admin Dose 5 MG; Start 09/01/18 at 00:00 Guaifenesin/ Dextromethorphan (Robitussin Dm Liquid Cup) 5 ml Q6H PRN PO COUGH Last administered on 09/15/18 05:16; Admin Dose 5 ML; Start 09/01/18 at 20:00 Morphine Sulfate (morphine) 6 mg Q4H PRN PO SEVERE PAIN LEVEL 7-10 Last ad ministered on 09/17/18 12:44; Admin Dose 6 MG; Start 09/04/18 at 21:30 Albuterol/ Ipratropium (Duoneb) 3 ml Q3H RESP THERAPY PRN HHN SHORTNESS OF BREATH Last administered on 09/12/18 18:47; Admin Dose 3 ML; Start 09/05/18 at 20:00 Methylprednisolone Sodium Succinate (Solu-Medrol) 40 mg Q6 IV Last administered on 09/19/18 05:50; Admin Dose 40 MG; Start 09/07/18 at 12:00 Alteplase, Recombinant (Cathflo (Activase)) 2 mg MAY REPEAT X1 PRN CATHETER IF CATHETER REMAINS OCCULUDED; Start 09/07/18 at 11:00 Amlodipine Besylate (Norvasc) 5 mg DAILY PO Last administered on 09/19/18 08:16; Admin Dose 5 MG; Start 09/10/18 at 09:00 Albuterol/ Ipratropium (Duoneb) 3 ml Q6H RESP THERAPY HHN Last administered on 09/19/18 02:15; Admin Dose 3 ML; Start 09/09/18 at 20:00 Lorazepam (Ativan) 1 mg Q6H PRN IV PSYCHOSIS Last administered on 09/16/18 13:05; Admin Dose 1 MG; Start 09/12/18 at 02:00 Haloperidol (Haldol) 2 mg PRN PRN IM AGITATION Last administered on 09/17/18 00:44; Admin Dose 2 MG; Start 09/13/18 at 06:30 Risperidone (Risperdal) 2 mg BID PO Last administered on 09/19/18 08:15; Admin Dose 2 MG; Start 09/14/18 at 21:00 Divalproex Sodium (Depakote Sprinkle) 250 mg Q8H PO Last administered on 09/17/18 13:09; Admin Dose 250 MG; Start 09/15/18 at 21:00 Dextrose 1,000 ml @ 100 mls/hr Q10H IV Last administered on 09/19/18 08:23; Admin Dose 100 MLS/HR; Start 09/17/18 at 06:30 Propofol 100 ml @ 1.875 mls/ hr Q12H IV Last administered on 09/19/18 04:14; Admin Dose 7.5 MLS/HR; Start 09/18/18 at 15:30 Potassium Chloride 100 ml @ 50 mls/hr Q2H IVPB Last administered on 09/19/18at 08:18; Admin Dose 50 MLS/HR; Start 09/19/18 at 08:00; Stop 09/19/18 at 11:59 Desmopressin Acetate (Ddavp) 2 mcg BID IV ; Start 09/19/18 at 09:00 Assessment/Plan Hospital Course (Demo Recall) iMP: 1. Acute on chronic hypoxic and hypercapnic respiratory failure--worse overnight with increased mucus plugging. Orally intubated from PEG tube placement 2. Pneumoperitoneum status post chest tube which patient pulled out 3. Encephalopathy toxic metabolic resolving 4. Advanced COPD 5. Hypernatremia likely free water deficit 6. Thrombocytopenia 7. Anemia RECS: 1. CPAP weaning trial. 2. Post extubation incentive spirometry and bronchodilators 3. Aggressive suctioning/CPT 4. Start tube feeding once extubated 5. Follow ABG/CXR 6. Strict aspiration precautions Critical care time 40 minutes. KHUSHI PATTON MD, [facility] Sep 19, 2018 09:46
--- NOTE | 2018-09-19 10:10 | CONS ---
Assessment/Plan Assessment/Plan Hospital Course (Demo Recall) IMP: 1.Hypotension-Now improved and tolerating norvasc. NL EF by echo this admit 2.resp failure s/p intubation 3.cardiac arrest 4.pneumoperitoneum-resolved 5.Positive troponin-now trended neg 6.renal failure-improved 7.Leukocytosis 8. anemia 9, Thrombocytopenia-ongoing some worsening 10.Resp failure-hypercapnic s/p intubation. s/p extubation but now transferred back to ICU for increasing resp distress 11.PNA-by cxr 12.PLeual effusion Recc: -IN ICU -Continue norvasc and follow BP clsoely -Continue asa -continue steroids/bronchodilators -Continue risperdal -follow MS closely -Follow volume status clsoely -consider thoracentesis -Follow resp status closely -pnding G tube placement Consultation Date/Type/Reason Admit Date/Time Aug 27, 2018 at 00:03 Initial Consult Date 08/27/18 Type of Consult Cardiology Reason for Consultation HTN Requesting Provider: VIVIANA NOLAN MD Date/Time of Note DATE: 09/19/18 TIME: 10:06 Exam/Review of Systems Vital Signs Vitals Vital Signs Date Temp Pulse Resp B/P (MAP) Pulse Ox O2 O2 Flow FiO2 Time Delivery Rate 09/19/18 92 37 108/71 Mechanical 09:00 (83) Ventilator 09/19/18 98.8 95 08:00 09/19/18 50 08:00 09/18/18 12.0 14:27 Intake and Output 09/18/18 09/18/18 09/19/18 1515:00 23:00 07:00 IntakeIntake Total 800.0 ml 819.8900 ml 741.250 ml OutputOutput Total 500 ml 790 ml 600 ml BalanceBalance 300.0 ml 29.8900 ml 141.250 ml Exam Exam Review of Systems: CONSTITUTIONAL: No fevers, chills. PULMONARY: No sob CARDIOVASCULAR: No chest pain/palpitations GASTROINTESTINAL: No nausea/vomiting. GENITOURINARY: No hematuria/dysuria. MUSCULOSKELETAL: No myagias/arthalgias. PSYCHIATRIC: The patient denies depression. NEUROLOGIC: No weakness Constitutional: alert Psych: no complaints Head: normocephalic ENMT: mucosa pink and moist Neck: supple, jvd (9 cm water) Respiratory: diminished breath sounds Cardiovascular: regular rate and rhythm Gastrointestinal: soft, non-tender Musculoskeletal: muscle tone (normal) Extremities: edema (none) Neurological: other (No focal deficits) Labs Result Diagram: 09/19/18 0450 09/19/18 0439 Results 24hrs Laboratory Tests Test 09/18/18 13:53 09/18/18 16:00 09/18/18 18:02 09/19/18 04:39 Sodium Level 151 H 151 H Potassium Level 3.6 3.4 L Chloride Level 110 109 Carbon Dioxide 38 H 40 H Level Anion Gap 3 L 2 L Blood Urea 40 H 39 H Nitrogen Creatinine 0.74 0.79 Est Glomerular > 60 > 60 Filtrat Rate mL/min Glucose Level 149 179 Calcium Level 8.9 8.5 Blood Gas Blood arterial Specimen Source Arterial Blood 09/11/2018 4:01:0 Date Drawn 3 PM Arterial Blood 7.508 H pH (Temp corrected) Arterial Blood 45.7 H pCO2 (Temp correct) Arterial Blood 400.8 H pO2 (Temp corrected) Arterial Blood 35.5 H HCO3 Arterial Blood 11.2 H Base Excess Arterial Blood 99.0 H Oxygen Saturatio n Miller Test ACCEPTAB Arterial Blood Right Radial Gas Puncture Site Arterial 0.3 Blood Carboxyhem oglobin Arterial Blood 0.3 Methemoglobin Blood Gas A-a O2 266.5 H Differential Oxyhemoglobin 98.4 Percent Blood Gas 37.0 Temperature Blood Gas 20.0 Respiration Rate Blood Gas Actual 20 Respiration Rate Blood Gas VENT - AC Modality FiO2 100.0 Blood Gas Tidal 500.0 Volume Blood Gas Low 5.0 PEEP Setting Blood Gas JASON GARLAND Notified Whom Blood Gas 09/18/2018 4:19: Notified Time 28 PM Prothrombin Time 13.4 Prothrombin Time 1.0 Ratio INR 1.01 International Normalized Ratio Activated 28.5 Partial Thrombop last Time Phosphorus Level 3.1 Magnesium Level 2.6 H Test 09/19/18 04:50 09/19/18 07:00 White Blood 4.1 #L Count Red Blood Count 3.13 L Hemoglobin 8.7 L Hematocrit 29.1 L Mean Corpuscular 93.0 Volume Mean Corpuscular 27.8 L Hemoglobin Mean Corpuscular 29.9 L Hemoglobin Alisson nt Red Cell 17.0 H Distribution Width Platelet Count 85 #L Mean Platelet 11.2 H Volume Immature 0.500 H Granulocytes % Neutrophils % 89.8 H Lymphocytes % 6.1 L Monocytes % 3.6 Eosinophils % 0.0 Basophils % 0.0 Nucleated Red 0.0 Blood Cells % Immature 0.020 Granulocytes # Neutrophils # 3.7 Lymphocytes # 0.3 L Monocytes # 0.2 L Eosinophils # 0.0 Basophils # 0.0 Nucleated Red 0.0 Blood Cells # Lab Scanned BLOOD TRANSFUSI Report ON Blood Gas Blood arterial Specimen Source Arterial Blood 09/19/2018 7:45: Date Drawn 22 AM Arterial Blood 7.490 H pH (Temp corrected) Arterial Blood 49.1 H pCO2 (Temp correct) Arterial Blood 59.9 L pO2 (Temp corrected) Arterial Blood 36.6 H HCO3 Arterial Blood 11.8 H Base Excess Arterial Blood 89.4 L Oxygen Saturatio n Miller Test ACCEPTAB Arterial Blood Right Radial Gas Puncture Site Arterial 0.3 Blood Carboxyhem oglobin Arterial Blood 0.3 Methemoglobin Blood Gas A-a O2 241.4 H Differential Oxyhemoglobin 88.9 L Percent Blood Gas 37.0 Temperature Blood Gas 16.0 Respiration Rate Blood Gas Actual 22 Respiration Rate Blood Gas VENT - AC Modality FiO2 50.0 Blood Gas Tidal 450.0 Volume Blood Gas Low 5.0 PEEP Setting Blood Gas DT Notified Whom Blood Gas 09/19/2018 8:13: Notified Time 23 AM Medications Medications Current Medications Ondansetron HCl (Zofran Inj) 4 mg Q6H PRN IV NAUSEA AND/OR VOMITING Last adm inistered on 09/06/18 18:46; Admin Dose 4 MG; Start 08/26/18 at 23:30 Acetaminophen (Tylenol Supp) 650 mg Q4H PRN [place] PAIN LEVEL 1-3 OR FEVER; Start 08/26/18 at 23:30 Aspirin (Aspirin) 81 mg DAILY PO Last administered on 09/19/18 08:15; Admin Dose 81 MG; Start 08/29/18 at 09:00 Famotidine (Pepcid) 20 mg Q12 PO Last administered on 09/19/18 08:15; Admin Dose 20 MG; Start 08/29/18 at 21:00 Zolpidem Tartrate (Ambien) 5 mg HS PRN PO INSOMNIA Last administered on 09/10/18 20:31; Admin Dose 5 MG; Start 09/01/18 at 00:00 Guaifenesin/ Dextromethorphan (Robitussin Dm Liquid Cup) 5 ml Q6H PRN PO COUGH Last administered on 09/15/18 05:16; Admin Dose 5 ML; Start 09/01/18 at 20:00 Morphine Sulfate (morphine) 6 mg Q4H PRN PO SEVERE PAIN LEVEL 7-10 Last administered on 09/17/18 12:44; Admin Dose 6 MG; Start 09/04/18 at 21:30 Albuterol/ Ipratropium (Duoneb) 3 ml Q3H RESP THERAPY PRN HHN SHORTNESS OF BREATH Last administered on 09/12/18 18:47; Admin Dose 3 ML; Start 09/05/18 at 20:00 Methylprednisolone Sodium Succinate (Solu-Medrol) 40 mg Q6 IV Last administered on 09/19/18 05:50; Admin Dose 40 MG; Start 09/07/18 at 12:00 Alteplase, Recombinant (Cathflo (Activase)) 2 mg MAY REPEAT X1 PRN CATHETER IF CATHETER REMAINS OCCULUDED; Start 09/07/18 at 11:00 Amlodipine Besylate (Norvasc) 5 mg DAILY PO Last administered on 09/19/18 08:16; Admin Dose 5 MG; Start 09/10/18 at 09:00 Albuterol/ Ipratropium (Duoneb) 3 ml Q6H RESP THERAPY HHN Last administered on 09/19/18 02:15; Admin Dose 3 ML; Start 09/09/18 at 20:00 Lorazepam (Ativan) 1 mg Q6H PRN IV PSYCHOSIS Last administered on 09/16/18 13:05; Admin Dose 1 MG; Start 09/12/18 at 02:00 Haloperidol (Haldol) 2 mg PRN PRN IM AGITATION Last administered on 09/17/18 00:44; Admin Dose 2 MG; Start 09/13/18 at 06:30 Risperidone (Risperdal) 2 mg BID PO Last administered on 09/19/18 08:15; Admin Dose 2 MG; Start 09/14/18 at 21:00 Divalproex Sodium (Depakote Sprinkle) 250 mg Q8H PO Last administered on 09/17/18 13:09; Admin Dose 250 MG; Start 09/15/18 at 21:00 Dextrose 1,000 ml @ 100 mls/hr Q10H IV Last administered on 09/19/18at 08:23; Admin Dose 100 MLS/HR; Start 09/17/18 at 06:30 Propofol 100 ml @ 1.875 mls/ hr Q12H IV Last administered on 09/19/18at 04:14; Admin Dose 7.5 MLS/HR; Start 09/18/18 at 15:30 Potassium Chloride 100 ml @ 50 mls/hr Q2H IVPB Last administered on 09/19/18at 08:18; Admin Dose 50 MLS/HR; Start 09/19/18 at 08:00; Stop 09/19/18 at 11:59 Desmopressin Acetate (Ddavp) 2 mcg BID IV ; Start 09/19/18 at 09:00 MITCHEL DESOUZA Sep 19, 2018 10:10
[2018-09-19] MEDS: DESMOPRESSIN 4 MCG INJ IV SCH ×2 (10:48→21:22)
--- NOTE | 2018-09-19 13:37 | CONS ---
Assessment/Plan Assessment/Plan Hospital Course (Demo Recall) Patient is status post PEG yesterday. He is intubated and in no distress, failed weaning trial this morning. No fevers overnight WBC 4.1 H&H 8.7 and 29.1 platelets 85 BUN 39 creatinine 0.79 Chest x-ray this morning revealed no changes Indwelling: Endotracheal tube PEG Sellers Antimicrobials: Patient is off antibiotics status post Ancef yesterday Physical examination: Well-developed chronically ill-appearing cachectic elderly man. Head atraumatic normocephalic sclera nonicteric, neck is supple chest rise symmetrical breath sounds diminished bases. Heart: S1-S2. Abdomen soft bowel sounds present. Extremities without edema/cyanosis Assessment: 1. Respiratory failure, s/p pneumonia 2. Dysphagia with ongoing aspiration 4. Pneumoperitoneum of unclear etiology, no perforation per surgical note, status post chest tube 5. Dementia 5. Anemia with progressive thrombocytopenia 6. History of non-ST elevation RI 7. Status post cardiac arrest 8. RIJ TLC Plan: Remains stable, continue present care, weaning trials per pulmonary Consultation Date/Type/Reason Admit Date/Time Aug 27, 2018 at 00:03 Initial Consult Date 08/27/18 Type of Consult ID Requesting Provider: VIVIANA NOLAN MD Date/Time of Note DATE: 09/19/18 TIME: 13:36 Exam/Review of Systems Exam Vitals Vital Signs Date Temp Pulse Resp B/P (MAP) Pulse Ox O2 O2 Flow FiO2 Time Delivery Rate 09/19/18 98.0 91 30 101/80 94 Mechanical 12:00 (87) Ventilator 09/19/18 50 11:10 09/18/18 12.0 14:27 Intake and Output 09/18/18 09/18/18 09/19/18 1515:00 23:00 07:00 IntakeIntake Total 800.0 ml 819.8900 ml 848.750 ml OutputOutput Total 500 ml 790 ml 600 ml BalanceBalance 300.0 ml 29.8900 ml 248.750 ml Results Result Diagram: 09/19/18 0450 09/19/18 0439 Results 24hrs Laboratory Tests Test 09/18/18 13:53 09/18/18 16:00 09/18/18 18:02 09/19/18 04:39 Sodium Level 151 H 151 H Potassium Level 3.6 3.4 L Chloride Level 110 109 Carbon Dioxide 38 H 40 H Level Anion Gap 3 L 2 L Blood Urea 40 H 39 H Nitrogen Creatinine 0.74 0.79 Est Glomerular > 60 > 60 Filtrat Rate mL/min Glucose Level 149 179 Calcium Level 8.9 8.5 Blood Gas Blood arterial Specimen Source Arterial Blood 09/11/2018 4:01:0 Date Drawn 3 PM Arterial Blood 7.508 H pH (Temp corrected) Arterial Blood 45.7 H pCO2 (Temp correct) Arterial Blood 400.8 H pO2 (Temp corrected) Arterial Blood 35.5 H HCO3 Arterial Blood 11.2 H Base Excess Arterial Blood 99.0 H Oxygen Saturatio n Miller Test ACCEPTAB Arterial Blood Right Radial Gas Puncture Site Arterial 0.3 Blood Carboxyhem oglobin Arterial Blood 0.3 Methemoglobin Blood Gas A-a O2 266.5 H Differential Oxyhemoglobin 98.4 Percent Blood Gas 37.0 Temperature Blood Gas 20.0 Respiration Rate Blood Gas Actual 20 Respiration Rate Blood Gas VENT - AC Modality FiO2 100.0 Blood Gas Tidal 500.0 Volume Blood Gas Low 5.0 PEEP Setting Blood Gas JASON RT Notified Whom Blood Gas 09/18/2018 4:19: Notified Time 28 PM Prothrombin Time 13.4 Prothrombin Time 1.0 Ratio INR 1.01 International Normalized Ratio Activated 28.5 Partial Thrombop last Time Phosphorus Level 3.1 Magnesium Level 2.6 H Test 09/19/18 04:50 09/19/18 07:00 White Blood 4.1 #L Count Red Blood Count 3.13 L Hemoglobin 8.7 L Hematocrit 29.1 L Mean Corpuscular 93.0 Volume Mean Corpuscular 27.8 L Hemoglobin Mean Corpuscular 29.9 L Hemoglobin Alisson nt Red Cell 17.0 H Distribution Width Platelet Count 85 #L Mean Platelet 11.2 H Volume Immature 0.500 H Granulocytes % Neutrophils % 89.8 H Lymphocytes % 6.1 L Monocytes % 3.6 Eosinophils % 0.0 Basophils % 0.0 Nucleated Red 0.0 Blood Cells % Immature 0.020 Granulocytes # Neutrophils # 3.7 Lymphocytes # 0.3 L Monocytes # 0.2 L Eosinophils # 0.0 Basophils # 0.0 Nucleated Red 0.0 Blood Cells # Lab Scanned BLOOD TRANSFUSI Report ON Blood Gas Blood arterial Specimen Source Arterial Blood 09/19/2018 7:45: Date Drawn 22 AM Arterial Blood 7.490 H pH (Temp corrected) Arterial Blood 49.1 H pCO2 (Temp correct) Arterial Blood 59.9 L pO2 (Temp corrected) Arterial Blood 36.6 H HCO3 Arterial Blood 11.8 H Base Excess Arterial Blood 89.4 L Oxygen Saturatio n Miller Test ACCEPTAB Arterial Blood Right Radial Gas Puncture Site Arterial 0.3 Blood Carboxyhem oglobin Arterial Blood 0.3 Methemoglobin Blood Gas A-a O2 241.4 H Differential Oxyhemoglobin 88.9 L Percent Blood Gas 37.0 Temperature Blood Gas 16.0 Respiration Rate Blood Gas Actual 22 Respiration Rate Blood Gas VENT - AC Modality FiO2 50.0 Blood Gas Tidal 450.0 Volume Blood Gas Low 5.0 PEEP Setting Blood Gas DT Notified Whom Blood Gas 09/19/2018 8:13: Notified Time 23 AM Medications Medication Current Medications Ondansetron HCl (Zofran Inj) 4 mg Q6H PRN IV NAUSEA AND/OR VOMITING Last administered on 09/06/18 18:46; Admin Dose 4 MG; Start 08/26/18 at 23:30 Acetaminophen (Tylenol Supp) 650 mg Q4H PRN [place] PAIN LEVEL 1-3 OR FEVER; Start 08/26/18 at 23:30 Aspirin (Aspirin) 81 mg DAILY PO Last administered on 09/19/18 08:15; Admin Dose 81 MG; Start 08/29/18 at 09:00 Famotidine (Pepcid) 20 mg Q12 PO Last administered on 09/19/18 08:15; Admin Do se 20 MG; Start 08/29/18 at 21:00 Zolpidem Tartrate (Ambien) 5 mg HS PRN PO INSOMNIA Last administered on 09/10/18 20:31; Admin Dose 5 MG; Start 09/01/18 at 00:00 Guaifenesin/ Dextromethorphan (Robitussin Dm Liquid Cup) 5 ml Q6H PRN PO COUGH Last administered on 09/15/18 05:16; Admin Dose 5 ML; Start 09/01/18 at 20:00 Morphine Sulfate (morphine) 6 mg Q4H PRN PO SEVERE PAIN LEVEL 7-10 Last admi nistered on 09/17/18 12:44; Admin Dose 6 MG; Start 09/04/18 at 21:30 Albuterol/ Ipratropium (Duoneb) 3 ml Q3H RESP THERAPY PRN HHN SHORTNESS OF BREATH Last administered on 09/12/18 18:47; Admin Dose 3 ML; Start 09/05/18 at 20:00 Methylprednisolone Sodium Succinate (Solu-Medrol) 40 mg Q6 IV Last administered on 09/19/18 12:06; Admin Dose 40 MG; Start 09/07/18 at 12:00 Alteplase, Recombinant (Cathflo (Activase)) 2 mg MAY REPEAT X1 PRN CATHETER IF CATHETER REMAINS OCCULUDED; Start 09/07/18 at 11:00 Amlodipine Besylate (Norvasc) 5 mg DAILY PO Last administered on 09/19/18 08:16; Admin Dose 5 MG; Start 09/10/18 at 09:00 Albuterol/ Ipratropium (Duoneb) 3 ml Q6H RESP THERAPY HHN Last administered on 09/19/18 02:15; Admin Dose 3 ML; Start 09/09/18 at 20:00 Lorazepam (Ativan) 1 mg Q6H PRN IV PSYCHOSIS Last administered on 09/16/18 13:05; Admin Dose 1 MG; Start 09/12/18 at 02:00 Haloperidol (Haldol) 2 mg PRN PRN IM AGITATION Last administered on 09/17/18 00:44; Admin Dose 2 MG; Start 09/13/18 at 06:30 Risperidone (Risperdal) 2 mg BID PO Last administered on 09/19/18 08:15; Admin Dose 2 MG; Start 09/14/18 at 21:00 Divalproex Sodium (Depakote Sprinkle) 250 mg Q8H PO Last administered on 09/19/18 12:06; Admin Dose 250 MG; Start 09/15/18 at 21:00 Dextrose 1,000 ml @ 100 mls/hr Q10H IV Last administered on 09/19/18 08:23; Admin Dose 100 MLS/HR; Start 09/17/18 at 06:30 Propofol 100 ml @ 1.875 mls/ hr Q12H IV Last administered on 09/19/18 12:10; Admin Dose 7.5 MLS/HR; Start 09/18/18 at 15:30 Desmopressin Acetate (Ddavp) 2 mcg BID IV Last administered on 09/19/18at 10:48; Admin Dose 2 MCG; Start 09/19/18 at 09:00 AALIYAH MEZA NP Sep 19, 2018 13:37
--- NOTE | 2018-09-19 16:17 | PN ---
Date/Time of Note Date/Time of Note DATE: 09/19/18 TIME: 16:14 Assessment/Plan VTE Prophylaxis Risk score (from [facility])>0 risk: 13 SCD applied (from [facility]): Yes Pharmacological prophylaxis: NA/contraindicated Pharm contraindication: thrombocytopenia Lines/Catheters [facility] (from [facility]): Peripheral IV Central line still needed: Yes Urinary Cath still in place: Yes Reason Cath still needed: urinary retention Assessment/Plan Hospital Course Patient is orally intubated, on ventilatory support, status post G-tube trae cement Assessment/Plan -Dysphagia. That is post G-tube placement by Dr. Munguia. -Hypoxic respiratory failure requiring mechanical ventilation, extubated and now intubated for elective PEG placement. Dr. Mejias is following in pulmonology consultation. -Sepsis with shock, resolving. Dr. Sutton is following in infection disease consultation. -Status post cardiac arrest. Dr. Hernández is following in cardiology consultation. -Left-sided pneumothorax, status post left side chest tube placement, s/p self d/c CT. -S/p pneumoperitoneum most likely due to cardiac arrest, resolved. Dr. Rivas is following in general surgery consultation. -Left axillary and brachial DVT, LUE swelling subsided, was on Lovenox which is currently held due to thrombocytopenia -Left lower lobe pneumonia -Severe emphysema -JEREMÍAS with possible chronic kidney disease. Dr Arvizu is following in nephrology consultation. -Hyper natremia, continue free water via G-tube, IV fluids with dextrose. -Schizoaffective disorder depressed type. Psychiatric consult is appreciated, continue Risperdal Depakote Further recommendations based on clinical course. Plan of care discussed with Dr. Juarez. Result Diagram: 09/19/18 0450 09/19/18 1356 Results 24hrs Laboratory Tests Test 09/18/18 18:02 09/19/18 04:39 09/19/18 04:50 09/19/18 07:00 Prothrombin Time 13.4 Prothrombin Time 1.0 Ratio INR 1.01 International Normalized Ratio Activated 28.5 Partial Thrombop last Time Sodium Level 151 H Potassium Level 3.4 L Chloride Level 109 Carbon Dioxide 40 H Level Anion Gap 2 L Blood Urea 39 H Nitrogen Creatinine 0.79 Est Glomerular > 60 Filtrat Rate mL/min Glucose Level 179 Calcium Level 8.5 Phosphorus Level 3.1 Magnesium Level 2.6 H White Blood 4.1 #L Count Red Blood Count 3.13 L Hemoglobin 8.7 L Hematocrit 29.1 L Mean Corpuscular 93.0 Volume Mean Corpuscular 27.8 L Hemoglobin Mean Corpuscular 29.9 L Hemoglobin Alisson nt Red Cell 17.0 H Distribution Width Platelet Count 85 #L Mean Platelet 11.2 H Volume Immature 0.500 H Granulocytes % Neutrophils % 89.8 H Lymphocytes % 6.1 L Monocytes % 3.6 Eosinophils % 0.0 Basophils % 0.0 Nucleated Red 0.0 Blood Cells % Immature 0.020 Granulocytes # Neutrophils # 3.7 Lymphocytes # 0.3 L Monocytes # 0.2 L Eosinophils # 0.0 Basophils # 0.0 Nucleated Red 0.0 Blood Cells # Lab Scanned BLOOD TRANSFUSI Report ON Blood Gas Blood arterial Specimen Source Arterial Blood 09/19/2018 7:45: Date Drawn 22 AM Arterial Blood 7.490 H pH (Temp corrected) Arterial Blood 49.1 H pCO2 (Temp correct) Arterial Blood 59.9 L pO2 (Temp corrected) Arterial Blood 36.6 H HCO3 Arterial Blood 11.8 H Base Excess Arterial Blood 89.4 L Oxygen Saturatio n Miller Test ACCEPTAB Arterial Blood Right Radial Gas Puncture Site Arterial 0.3 Blood Carboxyhem oglobin Arterial Blood 0.3 Methemoglobin Blood Gas A-a O2 241.4 H Differential Oxyhemoglobin 88.9 L Percent Blood Gas 37.0 Temperature Blood Gas 16.0 Respiration Rate Blood Gas Actual 22 Respiration Rate Blood Gas VENT - AC Modality FiO2 50.0 Blood Gas Tidal 450.0 Volume Blood Gas Low 5.0 PEEP Setting Blood Gas DT Notified Whom Blood Gas 09/19/2018 8:13: Notified Time 23 AM Test 09/19/18 13:56 Sodium Level 149 H Potassium Level 4.3 Chloride Level 110 Carbon Dioxide 38 H Level Anion Gap 1 L Blood Urea 40 H Nitrogen Creatinine 0.96 Est Glomerular > 60 Filtrat Rate mL/min Glucose Level 138 # Calcium Level 8.5 Exam/Review of Systems Exam Vitals Vital Signs Date Temp Pulse Resp B/P (MAP) Pulse Ox O2 O2 Flow FiO2 Time Delivery Rate 09/19/18 89 24 104/77 94 Mechanical 14:00 (86) Ventilator 09/19/18 50 13:10 09/19/18 98.0 12:00 09/18/18 12.0 14:27 Intake and Output 09/18/18 09/18/18 09/19/18 1414:59 22:59 06:59 IntakeIntake Total 726.7 ml 814.2650 ml 846.875 ml OutputOutput Total 500 ml 770 ml 700 ml BalanceBalance 226.7 ml 44.2650 ml 146.875 ml Exam Constitutional: alert, oriented Respiratory: diminished breath sounds Cardiovascular: regular rate and rhythm Gastrointestinal: soft, non-tender Musculoskeletal: nl extremities to inspection Extremities: normal pulses Neurological: nl mental status Results Results 24hrs Laboratory Tests Test 09/18/18 18:02 09/19/18 04:39 09/19/18 04:50 09/19/18 07:00 Prothrombin Time 13.4 Prothrombin Time 1.0 Ratio INR 1.01 International Normalized Ratio Activated 28.5 Partial Thrombop last Time Sodium Level 151 H Potassium Level 3.4 L Chloride Level 109 Carbon Dioxide 40 H Level Anion Gap 2 L Blood Urea 39 H Nitrogen Creatinine 0.79 Est Glomerular > 60 Filtrat Rate mL/min Glucose Level 179 Calcium Level 8.5 Phosphorus Level 3.1 Magnesium Level 2.6 H White Blood 4.1 #L Count Red Blood Count 3.13 L Hemoglobin 8.7 L Hematocrit 29.1 L Mean Corpuscular 93.0 Volume Mean Corpuscular 27.8 L Hemoglobin Mean Corpuscular 29.9 L Hemoglobin Alisson nt Red Cell 17.0 H Distribution Width Platelet Count 85 #L Mean Platelet 11.2 H Volume Immature 0.500 H Granulocytes % Neutrophils % 89.8 H Lymphocytes % 6.1 L Monocytes % 3.6 Eosinophils % 0.0 Basophils % 0.0 Nucleated Red 0.0 Blood Cells % Immature 0.020 Granulocytes # Neutrophils # 3.7 Lymphocytes # 0.3 L Monocytes # 0.2 L Eosinophils # 0.0 Basophils # 0.0 Nucleated Red 0.0 Blood Cells # Lab Scanned BLOOD TRANSFUSI Report ON Blood Gas Blood arterial Specimen Source Arterial Blood 09/19/2018 7:45: Date Drawn 22 AM Arterial Blood 7.490 H pH (Temp corrected) Arterial Blood 49.1 H pCO2 (Temp correct) Arterial Blood 59.9 L pO2 (Temp corrected) Arterial Blood 36.6 H HCO3 Arterial Blood 11.8 H Base Excess Arterial Blood 89.4 L Oxygen Saturatio n Miller Test ACCEPTAB Arterial Blood Right Radial Gas Puncture Site Arterial 0.3 Blood Carboxyhem oglobin Arterial Blood 0.3 Methemoglobin Blood Gas A-a O2 241.4 H Differential Oxyhemoglobin 88.9 L Percent Blood Gas 37.0 Temperature Blood Gas 16.0 Respiration Rate Blood Gas Actual 22 Respiration Rate Blood Gas VENT - AC Modality FiO2 50.0 Blood Gas Tidal 450.0 Volume Blood Gas Low 5.0 PEEP Setting Blood Gas DT Notified Whom Blood Gas 09/19/2018 8:13: Notified Time 23 AM Test 09/19/18 13:56 Sodium Level 149 H Potassium Level 4.3 Chloride Level 110 Carbon Dioxide 38 H Level Anion Gap 1 L Blood Urea 40 H Nitrogen Creatinine 0.96 Est Glomerular > 60 Filtrat Rate mL/min Glucose Level 138 # Calcium Level 8.5 Medications Medication Current Medications Ondansetron HCl (Zofran Inj) 4 mg Q6H PRN IV NAUSEA AND/OR VOMITING Last administered on 09/06/18 18:46; Admin Dose 4 MG; Start 08/26/18 at 23:30 Acetaminophen (Tylenol Supp) 650 mg Q4H PRN [place] PAIN LEVEL 1-3 OR FEVER; Start 08/26/18 at 23:30 Aspirin (Aspirin) 81 mg DAILY PO Last administered on 09/19/18 08:15; Admin Do se 81 MG; Start 08/29/18 at 09:00 Famotidine (Pepcid) 20 mg Q12 PO Last administered on 09/19/18 08:15; Admin Dose 20 MG; Start 08/29/18 at 21:00 Zolpidem Tartrate (Ambien) 5 mg HS PRN PO INSOMNIA Last administered on 09/10/18 20:31; Admin Dose 5 MG; Start 09/01/18 at 00:00 Guaifenesin/ Dextromethorphan (Robitussin Dm Liquid Cup) 5 ml Q6H PRN PO COUGH Last administered on 09/15/18 05:16; Admin Dose 5 ML; Start 09/01/18 at 20:00 Morphine Sulfate (morphine) 6 mg Q4H PRN PO SEVERE PAIN LEVEL 7-10 Last administered on 09/17/18 12:44; Admin Dose 6 MG; Start 09/04/18 at 21:30 Albuterol/ Ipratropium (Duoneb) 3 ml Q3H RESP THERAPY PRN HHN SHORTNESS OF BREATH Last administered on 09/12/18 18:47; Admin Dose 3 ML; Start 09/05/18 at 20:00 Methylprednisolone Sodium Succinate (Solu-Medrol) 40 mg Q6 IV Last administered on 09/19/18 12:06; Admin Dose 40 MG; Start 09/07/18 at 12:00 Alteplase, Recombinant (Cathflo (Activase)) 2 mg MAY REPEAT X1 PRN CATHETER IF CATHETER REMAINS OCCULUDED; Start 09/07/18 at 11:00 Amlodipine Besylate (Norvasc) 5 mg DAILY PO Last administered on 09/19/18 08:16; Admin Dose 5 MG; Start 09/10/18 at 09:00 Albuterol/ Ipratropium (Duoneb) 3 ml Q6H RESP THERAPY HHN Last administered on 09/19/18 14:45; Admin Dose 3 ML; Start 09/09/18 at 20:00 Lorazepam (Ativan) 1 mg Q6H PRN IV PSYCHOSIS Last administered on 09/16/18 13:05; Admin Dose 1 MG; Start 09/12/18 at 02:00 Haloperidol (Haldol) 2 mg PRN PRN IM AGITATION Last administered on 09/17/18 00:44; Admin Dose 2 MG; Start 09/13/18 at 06:30 Risperidone (Risperdal) 2 mg BID PO Last administered on 09/19/18 08:15; Admin Dose 2 MG; Start 09/14/18 at 21:00 Divalproex Sodium (Depakote Sprinkle) 250 mg Q8H PO Last administered on 09/19/18 12:06; Admin Dose 250 MG; Start 09/15/18 at 21:00 Dextrose 1,000 ml @ 100 mls/hr Q10H IV Last administered on 09/19/18 08:23; Admin Dose 100 MLS/HR; Start 09/17/18 at 06:30 Propofol 100 ml @ 1.875 mls/ hr Q12H IV Last administered on 09/19/18 12:10; Admin Dose 7.5 MLS/HR; Start 09/18/18 at 15:30 Desmopressin Acetate (Ddavp) 2 mcg BID IV Last administered on 2/14/19at 10:48; Admin Dose 2 MCG; Start 09/19/18 at 09:00 HERMES HARRIS Sep 19, 2018 16:17
[2018-09-20] VITALS (48 sets, daily range): BP systolic 72–134; BP diastolic 51–80; PULSE 66–97; RESP 16–48
[2018-09-20] MEDS: PROPOFOL 100 ML IV SCH ×2 (01:14→15:30)
[2018-09-20] MEDS: ALBUTEROL/IPRATROPIUM (NEB) 3 ML AMP HHN SCH ×4 (01:26→19:17)
[2018-09-20] MEDS: LORAZEPAM 2 MG INJ IV PRN (02:58)
[2018-09-20] MEDS: DEXTROSE 5% 1,000 ML IV SCH (04:19)
[2018-09-20] MEDS: DIVALPROEX SPRINKLE 125 MG CAP PO SCH ×3 (04:19→20:35)
[2018-09-20] MEDS: METHYLPREDNISOLONE 40 MG INJ IV SCH ×4 (05:46→23:23)
[2018-09-20] MEDS: AMLODIPINE 5 MG TAB PO SCH (08:24)
[2018-09-20] MEDS: RISPERIDONE 1 MG TAB PO SCH ×2 (08:24→20:36)
[2018-09-20] MEDS: ASPIRIN 81 MG TAB PO SCH (08:24)
[2018-09-20] MEDS: FAMOTIDINE 20 MG TAB PO SCH ×2 (08:24→20:35)
[2018-09-20] MEDS: BALSAM PERU/CASTOR OIL 60 GM TUBE TOP SCH (08:25)
[2018-09-20] MEDS: DESMOPRESSIN 4 MCG INJ IV SCH ×2 (08:25→20:36)
--- NOTE | 2018-09-20 09:57 | CONS ---
Assessment/Plan Assessment/Plan Assessment/Plan (Daily) -Dysphagia. That is post G-tube placement by Dr. Munguia. -Hypoxic respiratory failure requiring mechanical ventilation, extubated and now intubated for elective PEG placement. Dr. Mejias is following in pulmonology consultation. -Sepsis with shock, resolving. Dr. Sutton is following in infection disease consultation. -Status post cardiac arrest. Dr. Hernández is following in cardiology consult ation. -Left-sided pneumothorax, status post left side chest tube placement, s/p self d/c CT. -S/p pneumoperitoneum most likely due to cardiac arrest, resolved. Dr. Rivas is following in general surgery consultation. -Left axillary and brachial DVT, LUE swelling subsided, was on Lovenox which is currently held due to thrombocytopenia -Left lower lobe pneumonia -Severe emphysema -JEREMÍAS with possible chronic kidney disease. Dr Arvizu is following in nephrology consultation. -Hyper natremia, continue free water via G-tube, IV fluids with dextrose. -Schizoaffective disorder depressed type. Psychiatric consult is appreciated, continue Risperdal Depakote Total critical care time spent 35 mins. Further recommendations based on clinical course. Plan of care discussed with Dr. Nolan. Consultation Date/Type/Reason Admit Date/Time Aug 27, 2018 at 00:03 Initial Consult Date 08/27/18 Requesting Provider: VIVIANA NOLAN MD Date/Time of Note DATE: 09/20/18 TIME: 09:55 24 HR Interval Summary Free Text/Dictation on Propofol Hypotensive Subjective hx not possible: pt non-verbal Constitutional: requiring O2 Exam/Review of Systems Exam Vitals Vital Signs Date Temp Pulse Resp B/P (MAP) Pulse Ox O2 O2 Flow FiO2 Time Delivery Rate 09/20/18 91 48 83/66 (72) 97 Mechanical 09:00 Ventilator 09/20/18 98.0 08:00 09/20/18 50 08:00 09/18/18 12.0 14:27 Intake and Output 09/19/18 09/19/18 09/20/18 1515:00 23:00 07:00 IntakeIntake Total 1003.8 ml 1049.125 ml 1596.250 ml OutputOutput Total 175 ml 400 ml 330 ml BalanceBalance 828.8 ml 649.125 ml 1266.250 ml Constitutional: frail Eyes: nl lids, nl sclera ENMT: nl external ears & nose Neck: non-tender Respiratory: diminished breath sounds (at bases bilaterally) Cardiovascular: nl pulses, other (s1s2) Gastrointestinal: soft Musculoskeletal: muscle weakness Extremities: normal pulses Neurological: unresponsive Results Result Diagram: 09/20/18 0400 09/20/18 0400 Results 24hrs Laboratory Tests Test 09/19/18 13:56 09/20/18 04:00 09/20/18 07:00 Sodium Level 149 H 147 H Potassium Level 4.3 4.0 Chloride Level 110 106 Carbon Dioxide Level 38 H 37 H Anion Gap 1 L 4 L Blood Urea Nitrogen 40 H 45 H Creatinine 0.96 1.00 Est Glomerular Filtrat > 60 > 60 Rate mL/min Glucose Level 138 # 171 Calcium Level 8.5 8.5 White Blood Count 3.5 L Red Blood Count 3.07 L Hemoglobin 8.6 L Hematocrit 28.3 L Mean Corpuscular Volume 92.2 Mean Corpuscular Hemoglobin 28.0 L Mean Corpuscular 30.4 L Hemoglobin Concent Red Cell Distribution Width 16.8 H Platelet Count 61 #L Mean Platelet Volume 11.1 H Immature Granulocytes % 0.300 Neutrophils % 88.7 H Lymphocytes % 8.1 L Monocytes % 2.9 Eosinophils % 0.0 Basophils % 0.0 Nucleated Red Blood Cells % 0.0 Immature Granulocytes # 0.010 Neutrophils # 3.1 Lymphocytes # 0.3 L Monocytes # 0.1 L Eosinophils # 0.0 Basophils # 0.0 Nucleated Red Blood Cells # 0.0 Phosphorus Level 3.5 Magnesium Level 2.7 H Blood Gas Specimen Source Blood arterial Arterial Blood Date Drawn 09/20/2018 7:28:34 AM Arterial Blood pH 7.455 H (Temp corrected) Arterial Blood pCO2 48.3 H (Temp correct) Arterial Blood pO2 101.2 H (Temp corrected) Arterial Blood HCO3 33.2 H Arterial Blood Base Excess 8.3 H Arterial Blood 96.8 Oxygen Saturation Miller Test ACCEPTAB Arterial Blood Gas Right Radial Puncture Site Arterial 0.3 Blood Carboxyhemoglobin Arterial Blood Methemoglobin 0.2 Blood Gas A-a O2 201.0 H Differential Oxyhemoglobin Percent 96.3 Blood Gas Temperature 37.0 Blood Gas Respiration Rate 16.0 Blood Gas Actual 23 Respiration Rate Blood Gas Modality VENT - AC FiO2 50.0 Blood Gas Tidal Volume 450.0 Blood Gas Low PEEP Setting 5.0 Blood Gas Notified Whom TM Blood Gas Notified Time 09/20/2018 7:57:08 AM Medications Medication Current Medications Ondansetron HCl (Zofran Inj) 4 mg Q6H PRN IV NAUSEA AND/OR VOMITING Last administered on 09/06/18 18:46; Admin Dose 4 MG; Start 08/26/18 at 23:30 Acetaminophen (Tylenol Supp) 650 mg Q4H PRN [place] PAIN LEVEL 1-3 OR FEVER; Start 08/26/18 at 23:30 Aspirin (Aspirin) 81 mg DAILY PO Last administered on 09/20/18 08:24; Admin Dose 81 MG; Start 08/29/18 at 09:00 Famotidine (Pepcid) 20 mg Q12 PO Last administered on 09/20/18 08:24; Admin Dose 20 MG; Start 08/29/18 at 21:00 Zolpidem Tartrate (Ambien) 5 mg HS PRN PO INSOMNIA Last administered on 09/10/18 20:31; Admin Dose 5 MG; Start 09/01/18 at 00:00 Guaifenesin/ Dextromethorphan (Robitussin Dm Liquid Cup) 5 ml Q6H PRN PO COUGH Last administered on 09/15/18 05:16; Admin Dose 5 ML; Start 09/01/18 at 20:00 Morphine Sulfate (morphine) 6 mg Q4H PRN PO SEVERE PAIN LEVEL 7-10 Last administered on 09/17/18 12:44; Admin Dose 6 MG; Start 09/04/18 at 21:30 Albuterol/ Ipratropium (Duoneb) 3 ml Q3H RESP THERAPY PRN HHN SHORTNESS OF BREATH Last administered on 09/12/18 18:47; Admin Dose 3 ML; Start 09/05/18 at 20:00 Methylprednisolone Sodium Succinate (Solu-Medrol) 40 mg Q6 IV Last administered on 09/20/18 05:46; Admin Dose 40 MG; Start 09/07/18 at 12:00 Alteplase, Recombinant (Cathflo (Activase)) 2 mg MAY REPEAT X1 PRN CATHETER IF CATHETER REMAINS OCCULUDED; Start 09/07/18 at 11:00 Amlodipine Besylate (Norvasc) 5 mg DAILY PO Last administered on 09/20/18 08:24; Admin Dose 5 MG; Start 09/10/18 at 09:00 Albuterol/ Ipratropium (Duoneb) 3 ml Q6H RESP THERAPY HHN Last administered on 09/20/18 01:26; Admin Dose 3 ML; Start 09/09/18 at 20:00 Lorazepam (Ativan) 1 mg Q6H PRN IV PSYCHOSIS Last administered on 09/20/18 02:58; Admin Dose 1 MG; Start 09/12/18 at 02:00 Haloperidol (Haldol) 2 mg PRN PRN IM AGITATION Last administered on 09/17/18 00:44; Admin Dose 2 MG; Start 09/13/18 at 06:30 Risperidone (Risperdal) 2 mg BID PO Last administered on 09/20/18 08:24; Admin Dose 2 MG; Start 09/14/18 at 21:00 Divalproex Sodium (Depakote Sprinkle) 250 mg Q8H PO Last administered on 09/20/18 04:19; Admin Dose 250 MG; Start 09/15/18 at 21:00 Dextrose 1,000 ml @ 50 mls/hr Q20H IV Last administered on 09/20/18 04:19; Admin Dose 50 MLS/HR; Start 09/17/18 at 06:30 Propofol 100 ml @ 1.875 mls/ hr Q12H IV Last administered on 09/20/18 01:14; Admin Dose 7.5 MLS/HR; Start 09/18/18 at 15:30 Desmopressin Acetate (Ddavp) 2 mcg BID IV Last administered on 09/20/18 08:25; Admin Dose 2 MCG; Start 09/19/18 at 09:00 Dexmedetomidine HCl 200 mcg/ Sodium Chloride 50 ml @ 0 mls/hr TITRATE IV ; Start 09/20/18 at 09:30 KEDAR LUGO Sep 20, 2018 9:57 am
[2018-09-20] MEDS: DEXMEDETOMIDINE HCL 200 MCG in SOD CHLORIDE 0.9% 48 ML IV SCH ×2 (10:24→17:26)
--- NOTE | 2018-09-20 10:36 | PN ---
DATE: 09/20/2018 SUBJECTIVE: The patient remains intubated on full ventilatory support. No other acute events noted. The patient's urinary output has decreased in the last 24 hours. No hemoptysis, hematemesis, hemat ochezia. OBJECTIVE: VITAL SIGNS: Blood pressure is 134/74, respiration 21, pulse 93, temperature 97.9. HEENT: Head is normocephalic. NECK: Supple. HEART: Regular rate. LUNGS: Show diminished breath sounds at the base. ABDOMEN: Soft, nontender to palpation without rebound or guarding. EXTREMITIES: Negative for clubbing, cyanosis, no edema. DERMATOLOGIC: No rashes. MUSCULOSKELETAL: No joint effusion. NEUROLOGIC: No change in exam. MEDICATIONS: Reviewed. LABORATORY DATA: Shows sodium of 147, potassium 4.0, BUN 45, creatinine 1.0. Urinalysis was reviewe d. ABG was reviewed. IMAGING STUDIES: Reviewed. ASSESSMENT AND PLAN: 1. Hypernatremia, etiology is secondary to partial diabetes insipidus, possible nephrogenic versus c entral in etiology. The patient's urine osmolarity is inappropriately low for patient's level of hyp ernatremia. The patient has been placed on a trial of desmopressin with a mild decrease in urinary o utput. Sodium levels have slowly been improving. Plan is to repeat urine osmolarity to see if there is any increase in concentration while on desmopressin. Otherwise, continue free water flushes, con tinue D5 water. Continue to monitor serial sodium levels closely. 2. Nonoliguric acute kidney injury with unknown baseline creatinine. Etiology secondary to hemodyna mics, possible tubular injury. The patient's renal function is slowly declining. At this point, joey adrian current treatment plan. Continue supportive care, renally dose all meds, avoid nephrotoxins. 3. Metabolic alkalosis with respiratory compensation. Continue to monitor. 4. Anemia, monitor hemoglobin and hematocrit levels. 5. Mineral bone disorder, monitor calcium and phosphorus levels. 6. Hypomagnesemia. Continue to monitor and replete. 7. History of diastolic heart failure. The patient appears compensated. Continue to monitor. 8. Pleural effusion, status post thoracentesis. 9. Ventilator dependent respiratory failure. Vent settings and ABG was reviewed. Continue to monit or. Followup with pulmonary.. 10. Acute encephalopathy, etiology toxic metabolic. 11. Dysphagia, status post percutaneous endoscopic gastrostomy, continue tube feeding. 12. Sepsis secondary to pneumonia. Patient completed antibiotic course. 13. Deep venous thrombosis. Continue medical management. 14. Status post cardiac arrest. 15. Status post pneumothorax. 16. Status post pneumoperitoneum. Dictated By: JOE BLACK DO NR/NTS Conf#: [id number] DID#: [id number] CC: WENDY LOVE MD;*EndCC*
--- NOTE | 2018-09-20 10:56 | CONS ---
Consult Date/Type/Reason Admit Date/Time Aug 27, 2018 at 00:03 Initial Consult Date 08/27/18 Type of Consult Pulmonary Requesting Provider: VIVIANA NOLAN MD Date/Time of Note DATE: 09/20/18 TIME: 10:54 Subjective Patient remains on mechanical ventilation agonal respiration failed multiple weaning trials. Continues tube feeding via recently placed PEG tube. Objective Vital Signs Date Temp Pulse Resp B/P (MAP) Pulse Ox O2 O2 Flow FiO2 Time Delivery Rate 09/20/18 91 48 83/66 (72) 97 Mechanical 09:00 Ventilator 09/20/18 98.0 08:00 09/20/18 50 08:00 09/18/18 12.0 14:27 Intake and Output 09/19/18 09/19/18 09/20/18 1515:00 23:00 07:00 IntakeIntake Total 1003.8 ml 1049.125 ml 1596.250 ml OutputOutput Total 175 ml 400 ml 330 ml BalanceBalance 828.8 ml 649.125 ml 1266.250 ml Exam GENERAL: Frail elderly gentleman, on mechanical ventilation orally intubated VITAL SIGNS: per chart NECK: Supple. No JVD or lymphadenopathy. CARDIAC EXAM: S1, S2. No added sounds or murmurs. CHEST: Diminished air entry bilaterally ABDOMEN: Soft, nontender. No guarding or rebound. EXTREMITIES: No cyanosis, clubbing or edema. NEUROLOGIC: Generalized weakness. Vent Setting Ventilator Support Mode: AC Fraction of Inspired Oxygen pe: 50 Positive End Expiratory Pressu: 5.0 Results/Medications Result Diagram: 09/20/18 0400 09/20/18 0400 Results 24 hrs Laboratory Tests Test 09/19/18 13:56 09/20/18 04:00 09/20/18 07:00 09/20/18 07:45 Sodium Level 149 H 147 H Potassium Level 4.3 4.0 Chloride Level 110 106 Carbon Dioxide 38 H 37 H Level Anion Gap 1 L 4 L Blood Urea 40 H 45 H Nitrogen Creatinine 0.96 1.00 Est Glomerular > 60 > 60 Filtrat Rate mL/min Glucose Level 138 # 171 Calcium Level 8.5 8.5 White Blood Count 3.5 L Red Blood Count 3.07 L Hemoglobin 8.6 L Hematocrit 28.3 L Mean Corpuscular 92.2 Volume Mean Corpuscular 28.0 L Hemoglobin Mean Corpuscular 30.4 L Hemoglobin Concen t Red Cell 16.8 H Distribution Width Platelet Count 61 #L Mean Platelet 11.1 H Volume Immature 0.300 Granulocytes % Neutrophils % 88.7 H Lymphocytes % 8.1 L Monocytes % 2.9 Eosinophils % 0.0 Basophils % 0.0 Nucleated Red 0.0 Blood Cells % Immature 0.010 Granulocytes # Neutrophils # 3.1 Lymphocytes # 0.3 L Monocytes # 0.1 L Eosinophils # 0.0 Basophils # 0.0 Nucleated Red 0.0 Blood Cells # Phosphorus Level 3.5 Magnesium Level 2.7 H Blood Gas Blood arterial Specimen Source Arterial Blood 09/20/2018 7:28:3 Date Drawn 4 AM Arterial Blood pH 7.455 H (Temp corrected) Arterial Blood 48.3 H pCO2 (Temp correct) Arterial Blood 101.2 H pO2 (Temp corrected) Arterial Blood 33.2 H HCO3 Arterial Blood 8.3 H Base Excess Arterial Blood 96.8 Oxygen Saturation Miller Test ACCEPTAB Arterial Blood Right Radial Gas Puncture Site Arterial 0.3 Blood Carboxyhemo globin Arterial Blood 0.2 Methemoglobin Blood Gas A-a O2 201.0 H Differential Oxyhemoglobin 96.3 Percent Blood Gas 37.0 Temperature Blood Gas 16.0 Respiration Rate Blood Gas Actual 23 Respiration Rate Blood Gas VENT - AC Modality FiO2 50.0 Blood Gas Tidal 450.0 Volume Blood Gas Low 5.0 PEEP Setting Blood Gas TM Notified Whom Blood Gas 09/20/2018 7:57:0 Notified Time 8 AM Urine Osmolality 400 Medications Current Medications Ondansetron HCl (Zofran Inj) 4 mg Q6H PRN IV NAUSEA AND/OR VOMITING Last administered on 09/06/18at 18:46; Admin Dose 4 MG; Start 08/26/18 at 23:30 Acetaminophen (Tylenol Supp) 650 mg Q4H PRN [place] PAIN LEVEL 1-3 OR FEVER; Start 08/26/18 at 23:30 Aspirin (Aspirin) 81 mg DAILY PO Last administered on 09/20/18at 08:24; Admin Dose 81 MG; Start 08/29/18 at 09:00 Famotidine (Pepcid) 20 mg Q12 PO Last administered on 09/20/18at 08:24; Admin Dose 20 MG; Start 08/29/18 at 21:00 Zolpidem Tartrate (Ambien) 5 mg HS PRN PO INSOMNIA Last administered on 09/10/18 20:31; Admin Dose 5 MG; Start 09/01/18 at 00:00 Guaifenesin/ Dextromethorphan (Robitussin Dm Liquid Cup) 5 ml Q6H PRN PO COUGH Last administered on 09/15/18 05:16; Admin Dose 5 ML; Start 09/01/18 at 20:00 Morphine Sulfate (morphine) 6 mg Q4H PRN PO SEVERE PAIN LEVEL 7-10 Last administered on 09/17/18 12:44; Admin Dose 6 MG; Start 09/04/18 at 21:30 Albuterol/ Ipratropium (Duoneb) 3 ml Q3H RESP THERAPY PRN HHN SHORTNESS OF BREATH Last administered on 09/12/18 18:47; Admin Dose 3 ML; Start 09/05/18 at 20:00 Methylprednisolone Sodium Succinate (Solu-Medrol) 40 mg Q6 IV Last administered on 09/20/18 05:46; Admin Dose 40 MG; Start 09/07/18 at 12:00 Alteplase, Recombinant (Cathflo (Activase)) 2 mg MAY REPEAT X1 PRN CATHETER IF CATHETER REMAINS OCCULUDED; Start 09/07/18 at 11:00 Amlodipine Besylate (Norvasc) 5 mg DAILY PO Last administered on 09/20/18 08:24; Admin Dose 5 MG; Start 09/10/18 at 09:00 Albuterol/ Ipratropium (Duoneb) 3 ml Q6H RESP THERAPY HHN Last administered on 09/20/18 01:26; Admin Dose 3 ML; Start 09/09/18 at 20:00 Lorazepam (Ativan) 1 mg Q6H PRN IV PSYCHOSIS Last administered on 09/20/18 02:58; Admin Dose 1 MG; Start 09/12/18 at 02:00 Haloperidol (Haldol) 2 mg PRN PRN IM AGITATION Last administered on 09/17/18 00:44; Admin Dose 2 MG; Start 09/13/18 at 06:30 Risperidone (Risperdal) 2 mg BID PO Last administered on 09/20/18 08:24; Admin Dose 2 MG; Start 09/14/18 at 21:00 Divalproex Sodium (Depakote Sprinkle) 250 mg Q8H PO Last administered on 09/20/18at 04:19; Admin Dose 250 MG; Start 09/15/18 at 21:00 Dextrose 1,000 ml @ 50 mls/hr Q20H IV Last administered on 09/20/18 04:19; Admin Dose 50 MLS/HR; Start 09/17/18 at 06:30 Propofol 100 ml @ 1.875 mls/ hr Q12H IV Last administered on 09/20/18at 01:14; Admin Dose 7.5 MLS/HR; Start 09/18/18 at 15:30 Desmopressin Acetate (Ddavp) 2 mcg BID IV Last administered on 09/20/18 08:25; Admin Dose 2 MCG; Start 09/19/18 at 09:00 Dexmedetomidine HCl 200 mcg/ Sodium Chloride 50 ml @ 0 mls/hr TITRATE IV Last administered on 09/20/18 10:24; Admin Dose 3.13 MLS/HR; Start 09/20/18 at 09:30 Ascorbic Acid (Vitamin C) 500 mg DAILY GTB ; Start 09/20/18 at 10:30 Assessment/Plan Hospital Course (Demo Recall) iMP: 1. Acute on chronic hypoxic and hypercapnic respiratory failure--worse overnig ht with increased mucus plugging. Currently not able to liberate from mechanical ventilation 3. Encephalopathy toxic metabolic resolving 4. Advanced COPD 5. Hypernatremia likely free water deficit 6. Thrombocytopenia 7. Anemia RECS: 1. Failed multiple weaning trials. Continue mechanical ventilation. Patient may require tracheostomy. 2. Continue tube feeding as tolerated 3. Pulmonary toilet 4. Consider increasing free water Critical care time 40 minutes. KHUSHI PATTON MD, [facility] Sep 20, 2018 10:56
--- NOTE | 2018-09-20 11:41 | CONS ---
Assessment/Plan Assessment/Plan Hospital Course (Demo Recall) IMP: 1.Hypotension-Now improved and tolerating norvasc. NL EF by echo this admit 2.resp failure s/p intubation 3.cardiac arrest 4.pneumoperitoneum-resolved 5.Positive troponin-now trended neg 6.renal failure-improved 7.Leukocytosis 8. anemia 9, Thrombocytopenia-ongoing some worsening 10.Resp failure-hypercapnic s/p intubation. s/p extubation but now transferred back to ICU for increasing resp distress 11.PNA-by cxr 12.PLeual effusion 14. dysphagia s/p G tube Recc: -IN ICU -Continue norvasc as tolerated only and follow BP clsoely and tus will reduce dose now -Continue asa -continue steroids/bronchodilators -Continue risperdal -follow MS closely -Follow volume status clsoely -consider thoracentesis -Follow resp status closely Consultation Date/Type/Reason Admit Date/Time Aug 27, 2018 at 00:03 Initial Consult Date 08/27/18 Type of Consult Cardiology Reason for Consultation abnl ecg Requesting Provider: VIVIANA NOLAN MD Date/Time of Note DATE: 09/20/18 TIME: 11:38 Exam/Review of Systems Vital Signs Vitals Vital Signs Date Temp Pulse Resp B/P (MAP) Pulse Ox O2 O2 Flow FiO2 Time Delivery Rate 09/20/18 88 28 93/69 (77) 93 Mechanical 11:00 Ventilator 09/20/18 98.0 08:00 09/20/18 50 08:00 09/18/18 12.0 14:27 Intake and Output 09/19/18 09/19/18 09/20/18 1515:00 23:00 07:00 IntakeIntake Total 1003.8 ml 1049.125 ml 1596.250 ml OutputOutput Total 175 ml 400 ml 330 ml BalanceBalance 828.8 ml 649.125 ml 1266.250 ml Exam Exam Review of Systems: CONSTITUTIONAL: No fevers, chills. PULMONARY: intubated CARDIOVASCULAR: No chest pain/palpitations GASTROINTESTINAL: No nausea/vomiting. GENITOURINARY: No hematuria/dysuria. MUSCULOSKELETAL: No myagias/arthalgias. PSYCHIATRIC: The patient denies depression. NEUROLOGIC: No weakness Constitutional: alert Psych: no complaints Head: normocephalic Neck: supple, jvd (9 cm wateer) Respiratory: diminished breath sounds Cardiovascular: regular rate and rhythm Gastrointestinal: soft, non-tender Musculoskeletal: muscle tone (normal) Extremities: edema (none) Neurological: other (sedated) Labs Result Diagram: 09/20/18 0400 09/20/18 0400 Results 24hrs Laboratory Tests Test 09/19/18 13:56 09/20/18 04:00 09/20/18 07:00 09/20/18 07:45 Sodium Level 149 H 147 H Potassium Level 4.3 4.0 Chloride Level 110 106 Carbon Dioxide 38 H 37 H Level Anion Gap 1 L 4 L Blood Urea 40 H 45 H Nitrogen Creatinine 0.96 1.00 Est Glomerular > 60 > 60 Filtrat Rate mL/min Glucose Level 138 # 171 Calcium Level 8.5 8.5 White Blood Count 3.5 L Red Blood Count 3.07 L Hemoglobin 8.6 L Hematocrit 28.3 L Mean Corpuscular 92.2 Volume Mean Corpuscular 28.0 L Hemoglobin Mean Corpuscular 30.4 L Hemoglobin Concen t Red Cell 16.8 H Distribution Width Platelet Count 61 #L Mean Platelet 11.1 H Volume Immature 0.300 Granulocytes % Neutrophils % 88.7 H Lymphocytes % 8.1 L Monocytes % 2.9 Eosinophils % 0.0 Basophils % 0.0 Nucleated Red 0.0 Blood Cells % Immature 0.010 Granulocytes # Neutrophils # 3.1 Lymphocytes # 0.3 L Monocytes # 0.1 L Eosinophils # 0.0 Basophils # 0.0 Nucleated Red 0.0 Blood Cells # Phosphorus Level 3.5 Magnesium Level 2.7 H Blood Gas Blood arterial Specimen Source Arterial Blood 09/20/2018 7:28:3 Date Drawn 4 AM Arterial Blood pH 7.455 H (Temp corrected) Arterial Blood 48.3 H pCO2 (Temp correct) Arterial Blood 101.2 H pO2 (Temp corrected) Arterial Blood 33.2 H HCO3 Arterial Blood 8.3 H Base Excess Arterial Blood 96.8 Oxygen Saturation Miller Test ACCEPTAB Arterial Blood Right Radial Gas Puncture Site Arterial 0.3 Blood Carboxyhemo globin Arterial Blood 0.2 Methemoglobin Blood Gas A-a O2 201.0 H Differential Oxyhemoglobin 96.3 Percent Blood Gas 37.0 Temperature Blood Gas 16.0 Respiration Rate Blood Gas Actual 23 Respiration Rate Blood Gas VENT - AC Modality FiO2 50.0 Blood Gas Tidal 450.0 Volume Blood Gas Low 5.0 PEEP Setting Blood Gas TM Notified Whom Blood Gas 09/20/2018 7:57:0 Notified Time 8 AM Urine Osmolality 400 Medications Medications Current Medications Ondansetron HCl (Zofran Inj) 4 mg Q6H PRN IV NAUSEA AND/OR VOMITING Last administered on 09/06/18 18:46; Admin Dose 4 MG; Start 08/26/18 at 23:30 Acetaminophen (Tylenol Supp) 650 mg Q4H PRN [place] PAIN LEVEL 1-3 OR FEVER; Start 08/26/18 at 23:30 Aspirin (Aspirin) 81 mg DAILY PO Last administered on 09/20/18 08:24; Admin Dose 81 MG; Start 08/29/18 at 09:00 Famotidine (Pepcid) 20 mg Q12 PO Last administered on 09/20/18 08:24; Admin Dose 20 MG; Start 08/29/18 at 21:00 Zolpidem Tartrate (Ambien) 5 mg HS PRN PO INSOMNIA Last administered on 09/10/18 20:31; Admin Dose 5 MG; Start 09/01/18 at 00:00 Guaifenesin/ Dextromethorphan (Robitussin Dm Liquid Cup) 5 ml Q6H PRN PO COUGH Last administered on 09/15/18 05:16; Admin Dose 5 ML; Start 09/01/18 at 20:00 Morphine Sulfate (morphine) 6 mg Q4H PRN PO SEVERE PAIN LEVEL 7-10 Last administered on 09/17/18 12:44; Admin Dose 6 MG; Start 09/04/18 at 21:30 Albuterol/ Ipratropium (Duoneb) 3 ml Q3H RESP THERAPY PRN HHN SHORTNESS OF BREATH Last administered on 09/12/18 18:47; Admin Dose 3 ML; Start 09/05/18 at 20:00 Methylprednisolone Sodium Succinate (Solu-Medrol) 40 mg Q6 IV Last administered on 09/20/18 05:46; Admin Dose 40 MG; Start 09/07/18 at 12:00 Alteplase, Recombinant (Cathflo (Activase)) 2 mg MAY REPEAT X1 PRN CATHETER IF C ATHETER REMAINS OCCULUDED; Start 09/07/18 at 11:00 Amlodipine Besylate (Norvasc) 5 mg DAILY PO Last administered on 09/20/18 08:24; Admin Dose 5 MG; Start 09/10/18 at 09:00 Albuterol/ Ipratropium (Duoneb) 3 ml Q6H RESP THERAPY HHN Last administered on 09/20/18 10:54; Admin Dose 3 ML; Start 09/09/18 at 20:00 Lorazepam (Ativan) 1 mg Q6H PRN IV PSYCHOSIS Last administered on 09/20/18 02:58; Admin Dose 1 MG; Start 09/12/18 at 02:00 Haloperidol (Haldol) 2 mg PRN PRN IM AGITATION Last administered on 09/17/18 00:44; Admin Dose 2 MG; Start 09/13/18 at 06:30 Risperidone (Risperdal) 2 mg BID PO Last administered on 09/20/18 08:24; Admin Dose 2 MG; Start 09/14/18 at 21:00 Divalproex Sodium (Depakote Sprinkle) 250 mg Q8H PO Last administered on 09/20/18 04:19; Admin Dose 250 MG; Start 09/15/18 at 21:00 Dextrose 1,000 ml @ 50 mls/hr Q20H IV Last administered on 09/20/18 04:19; Admin Dose 50 MLS/HR; Start 09/17/18 at 06:30 Propofol 100 ml @ 1.875 mls/ hr Q12H IV Last administered on 09/20/18 01:14; Admin Dose 7.5 MLS/HR; Start 09/18/18 at 15:30 Desmopressin Acetate (Ddavp) 2 mcg BID IV Last administered on 09/20/18 08:25; Admin Dose 2 MCG; Start 09/19/18 at 09:00 Dexmedetomidine HCl 200 mcg/ Sodium Chloride 50 ml @ 0 mls/hr TITRATE IV Last administered on 09/20/18 10:24; Admin Dose 3.13 MLS/HR; Start 09/20/18 at 09:30 Ascorbic Acid (Vitamin C) 500 mg DAILY GTB ; Start 09/20/18 at 10:30 MITCHEL DESOUZA Sep 20, 2018 11:41
--- NOTE | 2018-09-20 12:56 | CONS ---
Assessment/Plan Assessment/Plan Hospital Course (Demo Recall) No acute events patient is intubated sedated in no distress he is afebrile, off antibiotics. WBC 3.5 neutrophils 88.7 BUN 45 creatinine 1 Microbiology: Sputum culture growing gram-negative rods Chest x-ray this morning revealed similar appearance of right greater than left basilar infiltrates Indwelling: Endotracheal tube PEG Sellers Physical examination: Well-developed chronically ill-appearing cachectic elderly man. Head atraumatic normocephalic sclera nonicteric, neck is supple chest rise symmetrical breath sounds diminished bases. Heart: S1-S2. Abdomen soft bowel sounds present. Extremities without edema/cyanosis Assessment: 1. Respiratory failure, possible recurrent pneumonia 2. Dysphagia with ongoing aspiration 4. Pneumoperitoneum of unclear etiology, no perforation per surgical note, status post chest tube 5. Dementia 5. Anemia with progressive thrombocytopenia 6. History of non-ST elevation AL 7. Status post cardiac arrest 8. RIJ TLC Plan: Remains stable, we are going to start cefepime, await for final sputum cultures, continue vent management per pulmonary Consultation Date/Type/Reason Admit Date/Time Aug 27, 2018 at 00:03 Initial Consult Date 08/27/18 Type of Consult ID Requesting Provider: VIVIANA NOLAN MD Date/Time of Note DATE: 09/20/18 TIME: 12:55 Exam/Review of Systems Exam Vitals Vital Signs Date Temp Pulse Resp B/P (MAP) Pulse Ox O2 O2 Flow FiO2 Time Delivery Rate 09/20/18 98.4 85 24 115/75 96 Mechanical 12:00 (88) Ventilator 09/20/18 50 08:00 09/18/18 12.0 14:27 Intake and Output 09/19/18 09/19/18 09/20/18 1515:00 23:00 07:00 IntakeIntake Total 1003.8 ml 1049.125 ml 1596.250 ml OutputOutput Total 175 ml 400 ml 330 ml BalanceBalance 828.8 ml 649.125 ml 1266.250 ml Results Result Diagram: 09/20/18 0400 09/20/18 0400 Results 24hrs Laboratory Tests Test 09/19/18 13:56 09/20/18 04:00 09/20/18 07:00 09/20/18 07:45 Sodium Level 149 H 147 H Potassium Level 4.3 4.0 Chloride Level 110 106 Carbon Dioxide 38 H 37 H Level Anion Gap 1 L 4 L Blood Urea 40 H 45 H Nitrogen Creatinine 0.96 1.00 Est Glomerular > 60 > 60 Filtrat Rate mL/min Glucose Level 138 # 171 Calcium Level 8.5 8.5 White Blood Count 3.5 L Red Blood Count 3.07 L Hemoglobin 8.6 L Hematocrit 28.3 L Mean Corpuscular 92.2 Volume Mean Corpuscular 28.0 L Hemoglobin Mean Corpuscular 30.4 L Hemoglobin Concen t Red Cell 16.8 H Distribution Width Platelet Count 61 #L Mean Platelet 11.1 H Volume Immature 0.300 Granulocytes % Neutrophils % 88.7 H Lymphocytes % 8.1 L Monocytes % 2.9 Eosinophils % 0.0 Basophils % 0.0 Nucleated Red 0.0 Blood Cells % Immature 0.010 Granulocytes # Neutrophils # 3.1 Lymphocytes # 0.3 L Monocytes # 0.1 L Eosinophils # 0.0 Basophils # 0.0 Nucleated Red 0.0 Blood Cells # Phosphorus Level 3.5 Magnesium Level 2.7 H Blood Gas Blood arterial Specimen Source Arterial Blood 09/20/2018 7:28:3 Date Drawn 4 AM Arterial Blood pH 7.455 H (Temp corrected) Arterial Blood 48.3 H pCO2 (Temp correct) Arterial Blood 101.2 H pO2 (Temp corrected) Arterial Blood 33.2 H HCO3 Arterial Blood 8.3 H Base Excess Arterial Blood 96.8 Oxygen Saturation Miller Test ACCEPTAB Arterial Blood Right Radial Gas Puncture Site Arterial 0.3 Blood Carboxyhemo globin Arterial Blood 0.2 Methemoglobin Blood Gas A-a O2 201.0 H Differential Oxyhemoglobin 96.3 Percent Blood Gas 37.0 Temperature Blood Gas 16.0 Respiration Rate Blood Gas Actual 23 Respiration Rate Blood Gas VENT - AC Modality FiO2 50.0 Blood Gas Tidal 450.0 Volume Blood Gas Low 5.0 PEEP Setting Blood Gas TM Notified Whom Blood Gas 09/20/2018 7:57:0 Notified Time 8 AM Urine Osmolality 400 Medications Medication Current Medications Ondansetron HCl (Zofran Inj) 4 mg Q6H PRN IV NAUSEA AND/OR VOMITING Last administered on 09/06/18at 18:46; Admin Dose 4 MG; Start 08/26/18 at 23:30 Acetaminophen (Tylenol Supp) 650 mg Q4H PRN [place] PAIN LEVEL 1-3 OR FEVER; Start 08/26/18 at 23:30 Aspirin (Aspirin) 81 mg DAILY PO Last administered on 09/20/18 08:24; Admin Dose 81 MG; Start 08/29/18 at 09:00 Famotidine (Pepcid) 20 mg Q12 PO Last administered on 09/20/18 08:24; Admin Dose 20 MG; Start 08/29/18 at 21:00 Zolpidem Tartrate (Ambien) 5 mg HS PRN PO INSOMNIA Last administered on 09/10/18 20:31; Admin Dose 5 MG; Start 09/01/18 at 00:00 Guaifenesin/ Dextromethorphan (Robitussin Dm Liquid Cup) 5 ml Q6H PRN PO COUGH Last administered on 09/15/18 05:16; Admin Dose 5 ML; Start 09/01/18 at 20:00 Morphine Sulfate (morphine) 6 mg Q4H PRN PO SEVERE PAIN LEVEL 7-10 Last administered on 09/17/18 12:44; Admin Dose 6 MG; Start 09/04/18 at 21:30 Albuterol/ Ipratropium (Duoneb) 3 ml Q3H RESP THERAPY PRN HHN SHORTNESS OF BREATH Last administered on 09/12/18 18:47; Admin Dose 3 ML; Start 09/05/18 at 20:00 Methylprednisolone Sodium Succinate (Solu-Medrol) 40 mg Q6 IV Last administered on 09/20/18 05:46; Admin Dose 40 MG; Start 09/07/18 at 12:00 Alteplase, Recombinant (Cathflo (Activase)) 2 mg MAY REPEAT X1 PRN CATHETER IF CATHETER REMAINS OCCULUDED; Start 09/07/18 at 11:00 Albuterol/ Ipratropium (Duoneb) 3 ml Q6H RESP THERAPY HHN Last administered on 09/20/18 10:54; Admin Dose 3 ML; Start 09/09/18 at 20:00 Lorazepam (Ativan) 1 mg Q6H PRN IV PSYCHOSIS Last administered on 09/20/18 02:58; Admin Dose 1 MG; Start 09/12/18 at 02:00 Haloperidol (Haldol) 2 mg PRN PRN IM AGITATION Last administered on 09/17/18 00:44; Admin Dose 2 MG; Start 09/13/18 at 06:30 Risperidone (Risperdal) 2 mg BID PO Last administered on 09/20/18at 08:24; Admin Dose 2 MG; Start 09/14/18 at 21:00 Divalproex Sodium (Depakote Sprinkle) 250 mg Q8H PO Last administered on 09/20/18at 04:19; Admin Dose 250 MG; Start 09/15/18 at 21:00 Dextrose 1,000 ml @ 50 mls/hr Q20H IV Last administered on 09/20/18at 04:19; Admin Dose 50 MLS/HR; Start 09/17/18 at 06:30 Propofol 100 ml @ 1.875 mls/ hr Q12H IV Last administered on 09/20/18at 01:14; Admin Dose 7.5 MLS/HR; Start 09/18/18 at 15:30 Desmopressin Acetate (Ddavp) 2 mcg BID IV Last administered on 09/20/18at 08:25; Admin Dose 2 MCG; Start 09/19/18 at 09:00 Dexmedetomidine HCl 200 mcg/ Sodium Chloride 50 ml @ 0 mls/hr TITRATE IV Last administered on 09/20/18at 10:24; Admin Dose 3.13 MLS/HR; Start 09/20/18 at 09:30 Ascorbic Acid (Vitamin C) 500 mg DAILY GTB ; Start 09/20/18 at 10:30 Amlodipine Besylate (Norvasc) 2.5 mg DAILY PO ; Start 09/21/18 at 09:00 AALIYAH MEZA NP Sep 20, 2018 12:56
[2018-09-20] MEDS ORDERED: SOD CHLORIDE 0.9% 500 ML IV ONE (14:00)
[2018-09-20] MEDS: ASCORBIC ACID 500 MG TAB GTB SCH (14:02)
[2018-09-20] MEDS: CEFEPIME 1GM/50 ML (PMX) 50 ML IVPB SCH ×2 (14:02→20:34)
[2018-09-20] MEDS ORDERED: SOD CHLORIDE 0.9% 1,000 ML IV ONE (15:00)
[2018-09-20] MEDS: SOD CHLORIDE 0.9% 1,000 ML IV SCH (15:06)
[2018-09-20] MEDS ORDERED: PHENYLephrine 20MG IN 250 ML 250 ML IV SCH (22:00)
[2018-09-21] VITALS (103 sets, daily range): BP systolic 66–123; BP diastolic 40–92; PULSE 52–100; RESP 11–28
[2018-09-21] MEDS: ALBUTEROL/IPRATROPIUM (NEB) 3 ML AMP HHN SCH ×2 (01:30→08:10)
[2018-09-21] MEDS: PHENYLephrine 80 MG in DEXTROSE 5% 242 ML IV SCH ×3 (01:51→21:39)
[2018-09-21] MEDS: PROPOFOL 100 ML IV SCH ×2 (02:58→15:30)
[2018-09-21] MEDS: DEXMEDETOMIDINE HCL 200 MCG in SOD CHLORIDE 0.9% 48 ML IV SCH ×6 (03:21→21:37)
[2018-09-21] MEDS: DIVALPROEX SPRINKLE 125 MG CAP PO SCH ×3 (05:01→21:24)
[2018-09-21] MEDS: METHYLPREDNISOLONE 40 MG INJ IV SCH ×3 (05:04→17:11)
[2018-09-21] MEDS: morphine LIQ (10 MG/5 ML) CUP PO PRN ×2 (08:35→12:53)
[2018-09-21] MEDS: ASCORBIC ACID 500 MG TAB GTB SCH (08:42)
[2018-09-21] MEDS: FAMOTIDINE 20 MG TAB PO SCH ×2 (08:42→21:24)
[2018-09-21] MEDS: RISPERIDONE 1 MG TAB PO SCH ×2 (08:42→21:24)
[2018-09-21] MEDS: ASPIRIN 81 MG TAB PO SCH (08:42)
[2018-09-21] MEDS: BALSAM PERU/CASTOR OIL 60 GM TUBE TOP SCH (08:43)
[2018-09-21] MEDS ORDERED: CEFEPIME HCL 1 GM in DEXTROSE 5% 50 ML IVPB SCH (09:00)
[2018-09-21] MEDS ORDERED: DESMOPRESSIN 4 MCG INJ IV SCH (09:00)
[2018-09-21] MEDS ORDERED: AMLODIPINE 2.5 MG TAB PO SCH (09:00)
--- NOTE | 2018-09-21 09:52 | CONS ---
Consult Date/Type/Reason Admit Date/Time Aug 27, 2018 at 00:03 Initial Consult Date 08/27/18 Type of Consultation: Pulm/CCM Reason for Consultation Patient continues mechanical ventilation. Still had agonal respiration off sedation. More alert this morning somewhat agitated. Continues tube feeding as tolerated. Remains hemodynamically stable. Requesting Provider: VIVIANA NOLAN MD Date/Time of Note DATE: 09/21/18 TIME: 09:50 Objective Vitals Vital Signs Date Temp Pulse Resp B/P (MAP) Pulse Ox O2 O2 Flow FiO2 Time Delivery Rate 09/21/18 97 15 115/72 89 Mechanical 09:00 (86) Ventilator 09/21/18 99.5 08:02 09/21/18 60 05:00 09/18/18 12.0 14:27 Intake and Output 09/20/18 09/20/18 09/21/18 1515:00 23:00 07:00 IntakeIntake Total 1563.5 ml 2109.16 ml 1566.70 ml OutputOutput Total 500 ml 630 ml 600 ml BalanceBalance 1063.5 ml 1479.16 ml 966.70 ml Exam GENERAL: Frail elderly gentleman, on mechanical ventilation orally intubated VITAL SIGNS: per chart NECK: Supple. No JVD or lymphadenopathy. CARDIAC EXAM: S1, S2. No added sounds or murmurs. CHEST: Diminished air entry bilaterally ABDOMEN: Soft, nontender. No guarding or rebound. EXTREMITIES: No cyanosis, clubbing or edema. NEUROLOGIC: Generalized weakness. Results/Medications Result Diagram: 09/21/18 0450 09/21/18 045 Results 24 hrs Laboratory Tests Test 09/20/18 13:57 09/21/18 04:50 Sodium Level 142 147 H Potassium Level 4.0 4.1 Chloride Level 106 111 H Carbon Dioxide Level 34 H 32 H Anion Gap 2 L 4 L Blood Urea Nitrogen 49 H 44 H Creatinine 0.88 0.80 Est Glomerular Filtrat Rate mL/min > 60 > 60 Glucose Level 140 197 Calcium Level 8.4 8.4 White Blood Count 7.3 # Red Blood Count 3.19 L Hemoglobin 8.9 L Hematocrit 29.7 L Mean Corpuscular Volume 93.1 Mean Corpuscular Hemoglobin 27.9 L Mean Corpuscular Hemoglobin Concent 30.0 L Red Cell Distribution Width 16.9 H Platelet Count 82 #L Mean Platelet Volume 11.6 H Immature Granulocytes % 0.500 H Neutrophils % Segmented Neutrophils % (Manual) 81 H Band Neutrophils % (Manual) 15 H Lymphocytes % Lymphocytes % (Manual) 2 L Monocytes % Monocytes % (Manual) 2 Eosinophils % Basophils % Nucleated Red Blood Cells % 0.0 Immature Granulocytes # 0.040 H Neutrophils # Neutrophils # (Manual) 6.0 Band Neutrophils # 1.0 H Lymphocytes (Manual) 0.1 L Lymphocytes # Monocytes # Monocytes # (Manual) 0.1 L Eosinophils # Basophils # Nucleated Red Blood Cells # Platelet Estimate DECREASED Poikilocytosis 1+ Anisocytosis 1+ Lactic Acid Level 1.7 Phosphorus Level 3.7 Magnesium Level 2.6 H Home Meds Reported Medications Docusate Sodium* (Colace*) 100 Mg Capsule, 100 MG PO Q24H PRN for CONSTIPATION, #30 CAP 08/26/18 Polyethylene Glycol* (Miralax*) 17 Gm Powd.pack, 17 GM PO DAILY PRN for NEEDED, #30 PACKET 08/26/18 Acetaminophen* (Acetaminophen*) 325 Mg Tablet, 650 MG PO Q4H PRN for PAIN - 05/15, #30 TAB AND FEVER>101F 08/26/18 Sennosides* (Senna Lax*) 8.6 Mg Tablet, 1 TAB PO NEEDED, TAB 08/26/18 Mv,Minerals/Fa/Lycopene/Ginkgo (ONE DAILY MEN'S 50+ TABLET) 1 Each Tablet, 1 EACH PO DAILY, TAB 08/26/18 Divalproex Sodium* (Depakote*) 125 Mg Tablet.dr, 250 MG PO Q8H, #90 TAB 08/26/18 Quetiapine Fumarate* (Seroquel*) 50 Mg Tablet, 50 MG PO Q8H, TAB 08/26/18 Ipratropium-Albuterol (Ipratropium-Albuterol) 0.5-3 Mg/3 Ml Ampul.neb, 3 ML INHALATION Q4H PRN for WHEEZING AND SOB, #30 VIAL 08/26/18 Budesonide-Formoterol Fumarate* (Symbicort*) 160-4.5 Hfa.aer.ad, 2 PUFF INHALATION BID, #1 EACH 08/26/18 Medications Current Medications Ondansetron HCl (Zofran Inj) 4 mg Q6H PRN IV NAUSEA AND/OR VOMITING Last administered on 09/06/18 18:46; Admin Dose 4 MG; Start 08/26/18 at 23:30 Acetaminophen (Tylenol Supp) 650 mg Q4H PRN [place] PAIN LEVEL 1-3 OR FEVER; Start 08/26/18 at 23:30 Aspirin (Aspirin) 81 mg DAILY PO Last administered on 09/21/18 08:42; Admin Dose 81 MG; Start 08/29/18 at 09:00 Famotidine (Pepcid) 20 mg Q12 PO Last administered on 09/21/18 08:42; Admin Dose 20 MG; Start 08/29/18 at 21:00 Zolpidem Tartrate (Ambien) 5 mg HS PRN PO INSOMNIA Last administered on 09/10/18 20:31; Admin Dose 5 MG; Start 09/01/18 at 00:00 Guaifenesin/ Dextromethorphan (Robitussin Dm Liquid Cup) 5 ml Q6H PRN PO COUGH Last administered on 09/15/18 05:16; Admin Dose 5 ML; Start 09/01/18 at 20:00 Morphine Sulfate (morphine) 6 mg Q4H PRN PO SEVERE PAIN LEVEL 7-10 Last ad ministered on 09/17/18 12:44; Admin Dose 6 MG; Start 09/04/18 at 21:30 Albuterol/ Ipratropium (Duoneb) 3 ml Q3H RESP THERAPY PRN HHN SHORTNESS OF BREATH Last administered on 09/12/18 18:47; Admin Dose 3 ML; Start 09/05/18 at 20:00 Methylprednisolone Sodium Succinate (Solu-Medrol) 40 mg Q6 IV Last administered on 09/21/18 05:04; Admin Dose 40 MG; Start 09/07/18 at 12:00 Alteplase, Recombinant (Cathflo (Activase)) 2 mg MAY REPEAT X1 PRN CATHETER IF CATHETER REMAINS OCCULUDED; Start 09/07/18 at 11:00 Albuterol/ Ipratropium (Duoneb) 3 ml Q6H RESP THERAPY HHN Last administered on 09/21/18 01:30; Admin Dose 3 ML; Start 09/09/18 at 20:00 Lorazepam (Ativan) 1 mg Q6H PRN IV PSYCHOSIS Last administered on 09/20/18 02:58; Admin Dose 1 MG; Start 09/12/18 at 02:00 Haloperidol (Haldol) 2 mg PRN PRN IM AGITATION Last administered on 09/17/18 00:44; Admin Dose 2 MG; Start 09/13/18 at 06:30 Risperidone (Risperdal) 2 mg BID PO Last administered on 09/21/18 08:42; Admin Dose 2 MG; Start 09/14/18 at 21:00 Divalproex Sodium (Depakote Sprinkle) 250 mg Q8H PO Last administered on 09/21/18 05:01; Admin Dose 250 MG; Start 09/15/18 at 21:00 Propofol 100 ml @ 1.875 mls/ hr Q12H IV Last administered on 09/20/18 01:14; Admin Dose 7.5 MLS/HR; Start 09/18/18 at 15:30 Dexmedetomidine HCl 200 mcg/ Sodium Chloride 50 ml @ 0 mls/hr TITRATE IV Last administered on 09/21/18 08:28; Admin Dose 0.35 MLS/HR; Start 09/20/18 at 09:30 Ascorbic Acid (Vitamin C) 500 mg DAILY GTB Last administered on 09/21/18 08:42; Admin Dose 500 MG; Start 09/20/18 at 10:30 Sodium Chloride 1,000 ml @ 50 mls/hr Q20H IV Last administered on 09/20/18 15:06; Admin Dose 50 MLS/HR; Start 09/20/18 at 16:00 Phenylephrine HCl 80 mg/Dextrose 250 ml @ 18.75 mls/ hr TITRATE IV Last administered on 09/21/18 08:28; Admin Dose 37.5 MLS/HR; Start 09/21/18 at 01:00 Cefepime HCl 1 gm/ Dextrose 50 ml @ 100 mls/hr Q12 IVPB Last administered on 09/21/18 08:43; Admin Dose 100 MLS/HR; Start 09/21/18 at 09:00 Desmopressin Acetate (Ddavp) 2 mcg DAILY IV Last administered on 09/21/18 08:43; Admin Dose 2 MCG; Start 09/21/18 at 09:00 Assessment/Plan Hospital Course (Demo Recall) iMP: 1. Acute on chronic hypoxic and hypercapnic respiratory failure--worse overnight with increased mucus plugging. Currently not able to liberate from mechanical ventilation 3. Encephalopathy toxic metabolic resolving 4. Advanced COPD 5. Hypernatremia likely free water deficit 6. Thrombocytopenia 7. Anemia RECS: 1. Failed multiple weaning trials. Continue mechanical ventilation. Patient may require tracheostomy. We will repeat CPAP trial this morning. 2. Continue tube feeding as tolerated 3. Pulmonary toilet 4. Consider increasing free water Critical care time 40 minutes. KHUSHI PATTON MD, [facility] Sep 21, 2018 09:51
--- NOTE | 2018-09-21 10:11 | CONS ---
Assessment/Plan Assessment/Plan Hospital Course (Demo Recall) ID PROGRESS NOTE CURRENT ABX: DAY # => OFF ABX 09/21/180 09/21/18 0450 24H INTERVAL SUMMARY * Orally intubated, non-communicative, TMax 99.5 today w/rise in WBC's while OFF ABX * 09/20/18 CXR: Similar appearance of right greater than left basilar infiltrates. Small bilateral pleural effusions unchanged. * Indwelling: Endotracheal tube PEG Sellers MICRO/OTHER * BCx (-) * 09/19/18 RESP CX: RESPIRATORY CULTURE Final Organism 1 ENTEROBACTER CLOACAE QUANTITY 3+ E CLOACAE M.I.C. RX --------- --- CEFAZOLIN R CEFOTAXIME S CIPROFLOXACIN <=0.25 S GENTAMICIN <=1 S LEVOFLOXACIN <=0.12 S TOBRAMYCIN <=1 S TRIMETHOPRIM/SULFAMETHOXAZOLE <=20 S PHYSICAL EXAMINATION: GENERAL: Afebrile, VSS HEENT: AT, NC, anicteric, orally intubated NECK: Supple, trach midline CHEST: Equal chest rise bilaterally, without dyspnea on observation HEART: Pulse RRR ABDOMEN: Soft / NT EXTREMITIES: Warm, dry SKIN: No rash, no diaphoresis ID ASSESSMENT 68 yo M admit with: 1. SIRS w/low grade temps, rising WBC 2. Respiratory failure due to recurrent Aspiration pneumonia * Dysphagia/peg with ongoing aspiration * 09/20/18 CXR: Similar appearance of right greater than left basilar infiltrates. Small bilateral pleural effusions unchanged. 4. Pneumoperitoneum of unclear etiology, no perforation per surgical note, status post chest tube 5. Dementia 5. Anemia with progressive thrombocytopenia 6. History of non-ST elevation IN 7. Status post cardiac arrest 8. RIJ TLC (-)MRSA Nares ABX ALLERGIES: KNDA INVASIVES: R-IJ/TLC, ETT, PEG, FC CURRENT ABX: DAY # => START Levaquin 500mg IV daily ID RECOMMENDATIONS/PLAN: 1. START Levaquin 500mg IV daily for HCAP - ASP PNA Enterobacter . Consultation Date/Type/Reason Admit Date/Time Aug 27, 2018 at 00:03 Initial Consult Date 08/27/18 Requesting Provider: VIVIANA NOLAN MD Date/Time of Note DATE: 09/21/18 TIME: 10:11 Exam/Review of Systems Exam Vitals Vital Signs Date Temp Pulse Resp B/P (MAP) Pulse Ox O2 O2 Flow FiO2 Time Delivery Rate 09/21/18 97 15 115/72 89 Mechanical 09:00 (86) Ventilator 09/21/18 99.5 08:02 09/21/18 60 05:00 09/18/18 12.0 14:27 Intake and Output 09/20/18 09/20/18 09/21/18 1515:00 23:00 07:00 IntakeIntake Total 1563.5 ml 2109.16 ml 1566.70 ml OutputOutput Total 500 ml 630 ml 600 ml BalanceBalance 1063.5 ml 1479.16 ml 966.70 ml Results Result Diagram: 09/21/18 0450 09/21/18 0450 Results 24hrs Laboratory Tests Test 09/20/18 13:57 09/21/18 04:50 Sodium Level 142 147 H Potassium Level 4.0 4.1 Chloride Level 106 111 H Carbon Dioxide Level 34 H 32 H Anion Gap 2 L 4 L Blood Urea Nitrogen 49 H 44 H Creatinine 0.88 0.80 Est Glomerular Filtrat Rate mL/min > 60 > 60 Glucose Level 140 197 Calcium Level 8.4 8.4 White Blood Count 7.3 # Red Blood Count 3.19 L Hemoglobin 8.9 L Hematocrit 29.7 L Mean Corpuscular Volume 93.1 Mean Corpuscular Hemoglobin 27.9 L Mean Corpuscular Hemoglobin Concent 30.0 L Red Cell Distribution Width 16.9 H Platelet Count 82 #L Mean Platelet Volume 11.6 H Immature Granulocytes % 0.500 H Neutrophils % Segmented Neutrophils % (Manual) 81 H Band Neutrophils % (Manual) 15 H Lymphocytes % Lymphocytes % (Manual) 2 L Monocytes % Monocytes % (Manual) 2 Eosinophils % Basophils % Nucleated Red Blood Cells % 0.0 Immature Granulocytes # 0.040 H Neutrophils # Neutrophils # (Manual) 6.0 Band Neutrophils # 1.0 H Lymphocytes (Manual) 0.1 L Lymphocytes # Monocytes # Monocytes # (Manual) 0.1 L Eosinophils # Basophils # Nucleated Red Blood Cells # Platelet Estimate DECREASED Poikilocytosis 1+ Anisocytosis 1+ Lactic Acid Level 1.7 Phosphorus Level 3.7 Magnesium Level 2.6 H Medications Medication Current Medications Ondansetron HCl (Zofran Inj) 4 mg Q6H PRN IV NAUSEA AND/OR VOMITING Last administered on 09/06/18 18:46; Admin Dose 4 MG; Start 08/26/18 at 23:30 Acetaminophen (Tylenol Supp) 650 mg Q4H PRN [place] PAIN LEVEL 1-3 OR FEVER; Start 08/26/18 at 23:30 Aspirin (Aspirin) 81 mg DAILY PO Last administered on 09/21/18 08:42; Admin Dose 81 MG; Start 08/29/18 at 09:00 Famotidine (Pepcid) 20 mg Q12 PO Last administered on 09/21/18 08:42; Admin Dose 20 MG; Start 08/29/18 at 21:00 Zolpidem Tartrate (Ambien) 5 mg HS PRN PO INSOMNIA Last administered on 09/10/18 20:31; Admin Dose 5 MG; Start 09/01/18 at 00:00 Guaifenesin/ Dextromethorphan (Robitussin Dm Liquid Cup) 5 ml Q6H PRN PO COUGH Last administered on 09/15/18 05:16; Admin Dose 5 ML; Start 09/01/18 at 20:00 Morphine Sulfate (morphine) 6 mg Q4H PRN PO SEVERE PAIN LEVEL 7-10 Last administered on 09/17/18 12:44; Admin Dose 6 MG; Start 09/04/18 at 21:30 Albuterol/ Ipratropium (Duoneb) 3 ml Q3H RESP THERAPY PRN HHN SHORTNESS OF BREATH Last administered on 09/12/18 18:47; Admin Dose 3 ML; Start 09/05/18 at 20:00 Methylprednisolone Sodium Succinate (Solu-Medrol) 40 mg Q6 IV Last administered on 09/21/18 05:04; Admin Dose 40 MG; Start 09/07/18 at 12:00 Alteplase, Recombinant (Cathflo (Activase)) 2 mg MAY REPEAT X1 PRN CATHETER IF CATHETER REMAINS OCCULUDED; Start 09/07/18 at 11:00 Albuterol/ Ipratropium (Duoneb) 3 ml Q6H RESP THERAPY HHN Last administered on 09/21/18 01:30; Admin Dose 3 ML; Start 09/09/18 at 20:00 Lorazepam (Ativan) 1 mg Q6H PRN IV PSYCHOSIS Last administered on 09/20/18 02:58; Admin Dose 1 MG; Start 09/12/18 at 02:00 Haloperidol (Haldol) 2 mg PRN PRN IM AGITATION Last administered on 09/17/18 00:44; Admin Dose 2 MG; Start 09/13/18 at 06:30 Risperidone (Risperdal) 2 mg BID PO Last administered on 09/21/18 08:42; Admin Dose 2 MG; Start 09/14/18 at 21:00 Divalproex Sodium (Depakote Sprinkle) 250 mg Q8H PO Last administered on 09/21/18 05:01; Admin Dose 250 MG; Start 09/15/18 at 21:00 Propofol 100 ml @ 1.875 mls/ hr Q12H IV Last administered on 09/20/18 01:14; Admin Dose 7.5 MLS/HR; Start 09/18/18 at 15:30 Dexmedetomidine HCl 200 mcg/ Sodium Chloride 50 ml @ 0 mls/hr TITRATE IV Last administered on 09/21/18 08:28; Admin Dose 0.35 MLS/HR; Start 09/20/18 at 09:30 Ascorbic Acid (Vitamin C) 500 mg DAILY GTB Last administered on 09/21/18 08:42; Admin Dose 500 MG; Start 09/20/18 at 10:30 Sodium Chloride 1,000 ml @ 50 mls/hr Q20H IV Last administered on 09/20/18 15:06; Admin Dose 50 MLS/HR; Start 09/20/18 at 16:00 Phenylephrine HCl 80 mg/Dextrose 250 ml @ 18.75 mls/ hr TITRATE IV Last administered on 09/21/18 08:28; Admin Dose 37.5 MLS/HR; Start 09/21/18 at 01:00 Cefepime HCl 1 gm/ Dextrose 50 ml @ 100 mls/hr Q12 IVPB Last administered on 09/21/18 08:43; Admin Dose 100 MLS/HR; Start 09/21/18 at 09:00 Desmopressin Acetate (Ddavp) 2 mcg DAILY IV Last administered on 09/21/18at 08:43; Admin Dose 2 MCG; Start 09/21/18 at 09:00 NEIL BRADEN NP Sep 21, 2018 10:11
[2018-09-21] MEDS: SOD CHLORIDE 0.9% 1,000 ML IV SCH (10:30)
[2018-09-21] MEDS: LEVOFLOXACIN 500MG/D5W (PMX) 100 ML IVPB SCH (12:52)
[2018-09-21] MEDS: IPRATROPIUM (HFA) 12.9 GM INHALER INH SCH ×2 (13:02→21:15)
[2018-09-21] MEDS: ALBUTEROL HFA 8 GM INHALER INH SCH ×2 (13:03→21:15)
--- NOTE | 2018-09-21 13:38 | CONS ---
Consult Date/Type/Reason Admit Date/Time Aug 27, 2018 at 00:03 Initial Consult Date 08/27/18 Type of Consultation: Pulm/CCM Requesting Provider: VIVIANA NOLAN MD Date/Time of Note DATE: 09/21/18 TIME: 13:36 Subjective NO acute events - pt stable - intubated - BP on low side, but stable overall. Will monitor now. ROS: No fever, no chills, no nausea, no vomiting, no diarrhea/constipation - per nurse No recent weight changes No chest pain, no PND, no orthopnea No dizziness, blurred vision No thirst, no heat or cold intolerance Objective Vitals Vital Signs Date Temp Pulse Resp B/P (MAP) Pulse Ox O2 O2 Flow FiO2 Time Delivery Rate 09/21/18 97 15 115/72 89 Mechanical 09:00 (86) Ventilator 09/21/18 99.5 08:02 09/21/18 60 05:00 09/18/18 12.0 14:27 Intake and Output 09/20/18 09/20/18 09/21/18 1414:59 22:59 06:59 IntakeIntake Total 1009.6 ml 2620.06 ml 1562.20 ml OutputOutput Total 440 ml 620 ml 475 ml BalanceBalance 569.6 ml 2000.06 ml 1087.20 ml Exam General: WN/WD/NAD, AOx 0 HEENT: Unicetric/atraumatic/EOMI (does not follow commands) NECK: JVD elevated, no thyromegaly - intubated Lymph: no lymphadenopathy HEART: regular with no S3, II/ systolic murmur at apex LUNGS: Coarse sounds ABD: soft, NT, ND, +BS : Intact Neuro: non focal SKIN: chronic changes EXT: no edema Results/Medications Result Diagram: 09/21/1844909/21/18449 Results 24 hrs Laboratory Tests Test 09/20/18 13:57 09/21/18 04:50 Sodium Level 142 147 H Potassium Level 4.0 4.1 Chloride Level 106 111 H Carbon Dioxide Level 34 H 32 H Anion Gap 2 L 4 L Blood Urea Nitrogen 49 H 44 H Creatinine 0.88 0.80 Est Glomerular Filtrat Rate mL/min > 60 > 60 Glucose Level 140 197 Calcium Level 8.4 8.4 White Blood Count 7.3 # Red Blood Count 3.19 L Hemoglobin 8.9 L Hematocrit 29.7 L Mean Corpuscular Volume 93.1 Mean Corpuscular Hemoglobin 27.9 L Mean Corpuscular Hemoglobin Concent 30.0 L Red Cell Distribution Width 16.9 H Platelet Count 82 #L Mean Platelet Volume 11.6 H Immature Granulocytes % 0.500 H Neutrophils % Segmented Neutrophils % (Manual) 81 H Band Neutrophils % (Manual) 15 H Lymphocytes % Lymphocytes % (Manual) 2 L Monocytes % Monocytes % (Manual) 2 Eosinophils % Basophils % Nucleated Red Blood Cells % 0.0 Immature Granulocytes # 0.040 H Neutrophils # Neutrophils # (Manual) 6.0 Band Neutrophils # 1.0 H Lymphocytes (Manual) 0.1 L Lymphocytes # Monocytes # Monocytes # (Manual) 0.1 L Eosinophils # Basophils # Nucleated Red Blood Cells # Platelet Estimate DECREASED Poikilocytosis 1+ Anisocytosis 1+ Lactic Acid Level 1.7 Phosphorus Level 3.7 Magnesium Level 2.6 H Home Meds Reported Medications Docusate Sodium* (Colace*) 100 Mg Capsule, 100 MG PO Q24H PRN for CONSTIPATION, #30 CAP 08/26/18 Polyethylene Glycol* (Miralax*) 17 Gm Powd.pack, 17 GM PO DAILY PRN for NEEDED, #30 PACKET 08/26/18 Acetaminophen* (Acetaminophen*) 325 Mg Tablet, 650 MG PO Q4H PRN for PAIN - 05/15, #30 TAB AND FEVER>101F 08/26/18 Sennosides* (Senna Lax*) 8.6 Mg Tablet, 1 TAB PO NEEDED, TAB 08/26/18 Mv,Minerals/Fa/Lycopene/Ginkgo (ONE DAILY MEN'S 50+ TABLET) 1 Each Tablet, 1 EACH PO DAILY, TAB 08/26/18 Divalproex Sodium* (Depakote*) 125 Mg Tablet.dr, 250 MG PO Q8H, #90 TAB 08/26/18 Quetiapine Fumarate* (Seroquel*) 50 Mg Tablet, 50 MG PO Q8H, TAB 08/26/18 Ipratropium-Albuterol (Ipratropium-Albuterol) 0.5-3 Mg/3 Ml Ampul.neb, 3 ML INHALATION Q4H PRN for WHEEZING AND SOB, #30 VIAL 08/26/18 Budesonide-Formoterol Fumarate* (Symbicort*) 160-4.5 Hfa.aer.ad, 2 PUFF INHALATION BID, #1 EACH 08/26/18 Medications Current Medications Ondansetron HCl (Zofran Inj) 4 mg Q6H PRN IV NAUSEA AND/OR VOMITING Last administered on 09/06/18 18:46; Admin Dose 4 MG; Start 08/26/18 at 23:30 Acetaminophen (Tylenol Supp) 650 mg Q4H PRN [place] PAIN LEVEL 1-3 OR FEVER; Start 08/26/18 at 23:30 Aspirin (Aspirin) 81 mg DAILY PO Last administered on 09/21/18 08:42; Admin Dose 81 MG; Start 08/29/18 at 09:00 Famotidine (Pepcid) 20 mg Q12 PO Last administered on 09/21/18 08:42; Admin Dose 20 MG; Start 08/29/18 at 21:00 Zolpidem Tartrate (Ambien) 5 mg HS PRN PO INSOMNIA Last administered on 09/10/18 20:31; Admin Dose 5 MG; Start 09/01/18 at 00:00 Guaifenesin/ Dextromethorphan (Robitussin Dm Liquid Cup) 5 ml Q6H PRN PO COUGH Last administered on 09/15/18 05:16; Admin Dose 5 ML; Start 09/01/18 at 20:00 Morphine Sulfate (morphine) 6 mg Q4H PRN PO SEVERE PAIN LEVEL 7-10 Last administered on 09/21/18 08:35; Admin Dose 6 MG; Start 09/04/18 at 21:30 Albuterol/ Ipratropium (Duoneb) 3 ml Q3H RESP THERAPY PRN HHN SHORTNESS OF BREATH Last administered on 09/12/18 18:47; Admin Dose 3 ML; Start 09/05/18 at 20:00 Methylprednisolone Sodium Succinate (Solu-Medrol) 40 mg Q6 IV Last administered on 09/21/18 12:52; Admin Dose 40 MG; Start 09/07/18 at 12:00 Alteplase, Recombinant (Cathflo (Activase)) 2 mg MAY REPEAT X1 PRN CATHETER IF CATHETER REMAINS OCCULUDED; Start 09/07/18 at 11:00 Lorazepam (Ativan) 1 mg Q6H PRN IV PSYCHOSIS Last administered on 09/20/18 02:58; Admin Dose 1 MG; Start 09/12/18 at 02:00 Haloperidol (Haldol) 2 mg PRN PRN IM AGITATION Last administered on 09/17/18 0 0:44; Admin Dose 2 MG; Start 09/13/18 at 06:30 Risperidone (Risperdal) 2 mg BID PO Last administered on 09/21/18 08:42; Admin Dose 2 MG; Start 09/14/18 at 21:00 Divalproex Sodium (Depakote Sprinkle) 250 mg Q8H PO Last administered on 09/21/18 12:52; Admin Dose 250 MG; Start 09/15/18 at 21:00 Propofol 100 ml @ 1.875 mls/ hr Q12H IV Last administered on 09/20/18 01:14; Admin Dose 7.5 MLS/HR; Start 09/18/18 at 15:30 Dexmedetomidine HCl 200 mcg/ Sodium Chloride 50 ml @ 3.13 mls/hr TITRATE IV Last administered on 09/21/18 12:09; Admin Dose 20.31 MLS/HR; Start 09/20/18 at 09:30 Ascorbic Acid (Vitamin C) 500 mg DAILY GTB Last administered on 09/21/18 08:42; Admin Dose 500 MG; Start 09/20/18 at 10:30 Sodium Chloride 1,000 ml @ 50 mls/hr Q20H IV Last administered on 09/21/18 10:30; Admin Dose 50 MLS/HR; Start 09/20/18 at 16:00 Phenylephrine HCl 80 mg/Dextrose 250 ml @ 18.75 mls/ hr TITRATE IV Last administered on 09/21/18 08:28; Admin Dose 37.5 MLS/HR; Start 09/21/18 at 01:00 Desmopressin Acetate (Ddavp) 2 mcg DAILY IV Last administered on 09/21/18 08:43; Admin Dose 2 MCG; Start 09/21/18 at 09:00 Albuterol (Ventolin Hfa) 4 puff Q6H RESP THERAPY INH Last administered on 13:03; Admin Dose 4 PUFF; Start 09/21/18 at 14:00 Ipratropium [place] (Atrovent Hfa) 4 puff Q6H RESP THERAPY INH Last administered on 09/21/18at 13:02; Admin Dose 4 PUFF; Start 09/21/18 at 14:00 Levofloxacin/ Dextrose 100 ml @ 100 mls/hr Q24H IVPB Last administered on 09/21/18at 12:52; Admin Dose 100 MLS/HR; Start 09/21/18 at 12:00 Assessment/Plan Hospital Course (Demo Recall) 1.Hypotension-off levo - better now - BP better, will allow in 140s for now, BETTER NOW. Con't t monitor. 2.Resp failure s/p re-intubation - pulm team follows. 3.h/o cardiac arrest - etiology unclear - con't supportive RX now. Stable now - of tele. No cardiac intervention currently planned. 4.Pneumoperitoneum - self d/c chest tube - stable SOB now. Con't Rx. 5.Positive troponin-now trended neg - will monitor clinically for now. No intervention planned. NO CP noted. 6.renal failure - good urine output. 7.Leukocytosis - on anti-Bx, con't med rx. On anti-Bx. 8. anemia - H/H stable - no bleeding noted. 9, Thrombocytopenia - no active bleeds noted. 10 DVT - low plts - defer to hematology for anti-coagulation. JIE ALEJO MD Sep 21, 2018 13:38
--- NOTE | 2018-09-21 14:44 | PN ---
DATE: 09/21/2018 SUBJECTIVE: The patient is critically ill, on pressor support, on full ventilatory support. No othe r acute events noted. No hemoptysis, hematemesis, hematochezia. OBJECTIVE: VITAL SIGNS: Blood pressure is 99/71, respirations 12, pulse 74, temperature 98.6. HEENT: Head is normocephalic. NECK: Supple. HEART: Regular rate. LUNGS: Show diminished breath sounds at the base. ABDOMEN: Soft, nontender to palpation. No rebound or guarding. EXTREMITIES: Negative for clubbing, cyanosis. Trace edema. DERMATOLOGIC: No rashes. MUSCULOSKELETAL: No joint effusions. NEUROLOGIC: No change in exam. MEDICATIONS: The patient's medications have been reviewed. LABORATORY DATA: Shows a sodium of 147, potassium 4.1, chloride 106, bicarb 34. White count 7.3, he moglobin 8.9, platelet count is 82. ASSESSMENT AND PLAN: 1. Hyponatremia, etiology secondary to partial diabetes insipidus, likely nephrogenic in etiology. The patient was placed on a trial of desmopressin without any significant increase in urine osmolarit y, suggesting a nephrogenic source. Likely underlying cause is acute kidney injury. Recommendation at this point is to continue aggressive free water flushes. Will deescalate desmopressin. Will plac e all piggybacks in D5 water. Continue to monitor serial sodium levels closely. 2. Nonoliguric acute kidney injury with unknown baseline creatinine. Etiology secondary to hemodyna mics, acute tubular necrosis. The patient's renal function is stabilizing. Continue current treatme nt plan, supportive care, and renally dose all medication. 3. Metabolic alkalosis with respiratory compensation. Continue to monitor. Defer any diuretics at this time. 4. Anemia. Monitor hemoglobin and hematocrit levels. 5. Mineral bone disorder. Monitor calcium and phosphorus levels. 6. Diastolic heart failure. The patient is currently compensated, in shock. Holding any diuretics. 7. Ventilatory dependent respiratory failure. Ventilator settings and arterial blood gas were revie sun. Continue to monitor. Follow up with pulmonary. 8. Dysphagia, status post percutaneous endoscopic gastrostomy, tube feeding. 9. Septic shock secondary to pneumonia. The patient is currently on pressor support, IV fluids, ant ibiotic therapy. Will continue. Continue current treatment plan. Follow up cultures. 10. Acute encephalopathy. Etiology is toxic-metabolic. 11. Pleural effusion, status post thoracentesis. 12. Deep venous thrombosis. Continue medical management. 13. Status post cardiac arrest. 14. Status post pneumothorax. 15. Status post pneumoperitoneum. Please note, I spent over 30 minutes of critical care time with this patient. Dictated By: JOE BLACK DO NR/NTS Conf#: [id number] DID#: [id number] CC: WENDY LOVE MD;*EndCC*
--- NOTE | 2018-09-21 16:04 | PN ---
Date/Time of Note Date/Time of Note DATE: 09/21/18 TIME: 16:02 Assessment/Plan VTE Prophylaxis Risk score (from [facility] [place]0 risk: 12 SCD applied (from [facility] [place]): Yes SCD contraindicated: other Pharmacological prophylaxis: other Pharm contraindication: other Lines/Catheters IV Catheter Type (from [place]): Central Line Urinary Cath still in place: Yes Reason Cath still needed: urinary retention Assessment/Plan Assessment/Plan -Dysphagia. That is post G-tube placement by Dr. Munguia. -Hypoxic respiratory failure requiring mechanical ventilation, extubated and now intubated for elective PEG placement. Dr. Mejias is following in pulmonology consultation. -Sepsis with shock, resolving. Dr. Sutton is following in infection disease consultation. -Status post cardiac arrest. Dr. Hernández is following in cardiology consultation. -Left-sided pneumothorax, status post left side chest tube placement, s/p self d/c CT. -S/p pneumoperitoneum most likely due to cardiac arrest, resolved. Dr. Rivas is following in general surgery consultation. -Left axillary and brachial DVT, LUE swelling subsided, was on Lovenox which is currently held due to thrombocytopenia -Left lower lobe pneumonia -Severe emphysema -JEREMÍAS with possible chronic kidney disease. Dr Arvizu is following in nephrology consultation. -Hyper natremia, continue free water via G-tube, IV fluids with dextrose. -Schizoaffective disorder depressed type. Psychiatric consult is appreciated, continue Risperdal Depakote Total critical care time spent 35 mins. Further recommendations based on clinical course. Plan of care discussed with Dr. Juarez. Result Diagram: 09/21/18 0450 09/21/18 1427 Results 24hrs Laboratory Tests Test 09/21/18 04:50 09/21/18 14:27 White Blood Count 7.3 # Red Blood Count 3.19 L Hemoglobin 8.9 L Hematocrit 29.7 L Mean Corpuscular Volume 93.1 Mean Corpuscular Hemoglobin 27.9 L Mean Corpuscular Hemoglobin Concent 30.0 L Red Cell Distribution Width 16.9 H Platelet Count 82 #L Mean Platelet Volume 11.6 H Immature Granulocytes % 0.500 H Neutrophils % Segmented Neutrophils % (Manual) 81 H Band Neutrophils % (Manual) 15 H Lymphocytes % Lymphocytes % (Manual) 2 L Monocytes % Monocytes % (Manual) 2 Eosinophils % Basophils % Nucleated Red Blood Cells % 0.0 Immature Granulocytes # 0.040 H Neutrophils # Neutrophils # (Manual) 6.0 Band Neutrophils # 1.0 H Lymphocytes (Manual) 0.1 L Lymphocytes # Monocytes # Monocytes # (Manual) 0.1 L Eosinophils # Basophils # Nucleated Red Blood Cells # Platelet Estimate DECREASED Poikilocytosis 1+ Anisocytosis 1+ Sodium Level 147 H 146 H Potassium Level 4.1 4.4 Chloride Level 111 H 112 H Carbon Dioxide Level 32 H 33 H Anion Gap 4 L 1 L Blood Urea Nitrogen 44 H 40 H Creatinine 0.80 0.80 Est Glomerular Filtrat Rate mL/min > 60 > 60 Glucose Level 197 156 Lactic Acid Level 1.7 Calcium Level 8.4 8.4 Phosphorus Level 3.7 Magnesium Level 2.6 H Subjective 24 Hr Interval Summary Free Text/Dictation Increased UO; nephro follows Subjective hx not possible: pt non-verbal Constitutional: requiring IVF, requiring O2 Exam/Review of Systems Exam Vitals Vital Signs Date Temp Pulse Resp B/P (MAP) Pulse Ox O2 O2 Flow FiO2 Time Delivery Rate 09/21/18 61 20 110/76 92 15:45 (87) 09/21/18 Mechanical 15:00 Ventilator 09/21/18 35 13:48 09/21/18 99.8 12:00 09/18/18 12.0 14:27 Intake and Output 09/20/18 09/20/18 09/21/18 1515:00 23:00 07:00 IntakeIntake Total 1563.5 ml 2109.16 ml 1566.70 ml OutputOutput Total 500 ml 630 ml 600 ml BalanceBalance 1063.5 ml 1479.16 ml 966.70 ml Constitutional: alert, non-verbal, frail Results Results 24hrs Laboratory Tests Test 09/21/18 04:50 09/21/18 14:27 White Blood Count 7.3 # Red Blood Count 3.19 L Hemoglobin 8.9 L Hematocrit 29.7 L Mean Corpuscular Volume 93.1 Mean Corpuscular Hemoglobin 27.9 L Mean Corpuscular Hemoglobin Concent 30.0 L Red Cell Distribution Width 16.9 H Platelet Count 82 #L Mean Platelet Volume 11.6 H Immature Granulocytes % 0.500 H Neutrophils % Segmented Neutrophils % (Manual) 81 H Band Neutrophils % (Manual) 15 H Lymphocytes % Lymphocytes % (Manual) 2 L Monocytes % Monocytes % (Manual) 2 Eosinophils % Basophils % Nucleated Red Blood Cells % 0.0 Immature Granulocytes # 0.040 H Neutrophils # Neutrophils # (Manual) 6.0 Band Neutrophils # 1.0 H Lymphocytes (Manual) 0.1 L Lymphocytes # Monocytes # Monocytes # (Manual) 0.1 L Eosinophils # Basophils # Nucleated Red Blood Cells # Platelet Estimate DECREASED Poikilocytosis 1+ Anisocytosis 1+ Sodium Level 147 H 146 H Potassium Level 4.1 4.4 Chloride Level 111 H 112 H Carbon Dioxide Level 32 H 33 H Anion Gap 4 L 1 L Blood Urea Nitrogen 44 H 40 H Creatinine 0.80 0.80 Est Glomerular Filtrat Rate mL/min > 60 > 60 Glucose Level 197 156 Lactic Acid Level 1.7 Calcium Level 8.4 8.4 Phosphorus Level 3.7 Magnesium Level 2.6 H Medications Medication Current Medications Ondansetron HCl (Zofran Inj) 4 mg Q6H PRN IV NAUSEA AND/OR VOMITING Last administered on 09/06/18 18:46; Admin Dose 4 MG; Start 08/26/18 at 23:30 Acetaminophen (Tylenol Supp) 650 mg Q4H PRN [place] PAIN LEVEL 1-3 OR FEVER; Start 08/26/18 at 23:30 Aspirin (Aspirin) 81 mg DAILY PO Last administered on 09/21/18 08:42; Admin Dose 81 MG; Start 08/29/18 at 09:00 Famotidine (Pepcid) 20 mg Q12 PO Last administered on 09/21/18 08:42; Admin Dose 20 MG; Start 08/29/18 at 21:00 Zolpidem Tartrate (Ambien) 5 mg HS PRN PO INSOMNIA Last administered on 09/10/18 20:31; Admin Dose 5 MG; Start 09/01/18 at 00:00 Guaifenesin/ Dextromethorphan (Robitussin Dm Liquid Cup) 5 ml Q6H PRN PO COUGH Last administered on 09/15/18 05:16; Admin Dose 5 ML; Start 09/01/18 at 20:00 Morphine Sulfate (morphine) 6 mg Q4H PRN PO SEVERE PAIN LEVEL 7-10 Last adminis tered on 09/21/18 08:35; Admin Dose 6 MG; Start 09/04/18 at 21:30 Albuterol/ Ipratropium (Duoneb) 3 ml Q3H RESP THERAPY PRN HHN SHORTNESS OF BREATH Last administered on 09/12/18 18:47; Admin Dose 3 ML; Start 09/05/18 at 20:00 Methylprednisolone Sodium Succinate (Solu-Medrol) 40 mg Q6 IV Last administered on 09/21/18 12:52; Admin Dose 40 MG; Start 09/07/18 at 12:00 Alteplase, Recombinant (Cathflo (Activase)) 2 mg MAY REPEAT X1 PRN CATHETER IF CATHETER REMAINS OCCULUDED; Start 09/07/18 at 11:00 Lorazepam (Ativan) 1 mg Q6H PRN IV PSYCHOSIS Last administered on 09/20/18 02:58; Admin Dose 1 MG; Start 09/12/18 at 02:00 Haloperidol (Haldol) 2 mg PRN PRN IM AGITATION Last administered on 09/17/18 00:44; Admin Dose 2 MG; Start 09/13/18 at 06:30 Risperidone (Risperdal) 2 mg BID PO Last administered on 09/21/18 08:42; Admin Dose 2 MG; Start 09/14/18 at 21:00 Divalproex Sodium (Depakote Sprinkle) 250 mg Q8H PO Last administered on 09/21/18 12:52; Admin Dose 250 MG; Start 09/15/18 at 21:00 Propofol 100 ml @ 1.875 mls/ hr Q12H IV Last administered on 09/20/18 01:14; Admin Dose 7.5 MLS/HR; Start 09/18/18 at 15:30 Dexmedetomidine HCl 200 mcg/ Sodium Chloride 50 ml @ 3.13 mls/hr TITRATE IV Last administered on 09/21/18 15:32; Admin Dose 21.86 MLS/HR; Start 09/20/18 at 09:30 Ascorbic Acid (Vitamin C) 500 mg DAILY GTB Last administered on 09/21/18 08:42; Admin Dose 500 MG; Start 09/20/18 at 10:30 Sodium Chloride 1,000 ml @ 50 mls/hr Q20H IV Last administered on 09/21/18 10:30; Admin Dose 50 MLS/HR; Start 09/20/18 at 16:00 Phenylephrine HCl 80 mg/Dextrose 250 ml @ 18.75 mls/ hr TITRATE IV Last administered on 09/21/18 08:28; Admin Dose 37.5 MLS/HR; Start 09/21/18 at 01:00 Desmopressin Acetate (Ddavp) 2 mcg DAILY IV Last administered on 09/21/18 08:43; Admin Dose 2 MCG; Start 09/21/18 at 09:00 Albuterol (Ventolin Hfa) 4 puff Q6H RESP THERAPY INH Last administered on 09/21/18 13:03; Admin Dose 4 PUFF; Start 09/21/18 at 14:00 Ipratropium [place] (Atrovent Hfa) 4 puff Q6H RESP THERAPY INH Last administered on 09/21/18 13:02; Admin Dose 4 PUFF; Start 09/21/18 at 14:00 Levofloxacin/ Dextrose 100 ml @ 100 mls/hr Q24H IVPB Last administered on 09/21/18 12:52; Admin Dose 100 MLS/HR; Start 09/21/18 at 12:00 KEDAR LUGO Sep 21, 2018 16:04
[2018-09-22] VITALS (90 sets, daily range): BP systolic 80–132; BP diastolic 38–100; PULSE 47–111; RESP 14–23
[2018-09-22] MEDS: METHYLPREDNISOLONE 40 MG INJ IV SCH ×4 (00:23→18:25)
[2018-09-22] MEDS: DEXMEDETOMIDINE HCL 200 MCG in SOD CHLORIDE 0.9% 48 ML IV SCH ×3 (00:41→06:40)
[2018-09-22] MEDS: IPRATROPIUM (HFA) 12.9 GM INHALER INH SCH ×4 (01:32→19:36)
[2018-09-22] MEDS: ALBUTEROL HFA 8 GM INHALER INH SCH ×4 (01:33→19:36)
[2018-09-22] MEDS: PROPOFOL 100 ML IV SCH ×2 (03:30→15:30)
[2018-09-22] MEDS: DIVALPROEX SPRINKLE 125 MG CAP PO SCH ×3 (05:28→21:13)
[2018-09-22] MEDS: SOD CHLORIDE 0.9% 1,000 ML IV SCH (06:41)
[2018-09-22] MEDS: SOD CHLORIDE 0.45% 1,000 ML IV SCH ×3 (08:28→21:15)
[2018-09-22] MEDS: ASCORBIC ACID 500 MG TAB GTB SCH (08:28)
[2018-09-22] MEDS: DESMOPRESSIN 4 MCG INJ IV SCH ×2 (08:29→21:13)
[2018-09-22] MEDS: ASPIRIN 81 MG TAB PO SCH (08:29)
[2018-09-22] MEDS: FAMOTIDINE 20 MG TAB PO SCH ×2 (08:29→21:13)
[2018-09-22] MEDS: RISPERIDONE 1 MG TAB PO SCH ×2 (08:30→21:14)
[2018-09-22] MEDS: BALSAM PERU/CASTOR OIL 60 GM TUBE TOP SCH (08:30)
--- NOTE | 2018-09-22 10:00 | CONS ---
Consult Date/Type/Reason Admit Date/Time Aug 27, 2018 at 00:03 Initial Consult Date 08/27/18 Type of Consult Pulmonary Requesting Provider: VIVIANA NOLAN MD Date/Time of Note DATE: 09/22/18 TIME: 09:59 Subjective frail elderly gentleman failed multiple weaning trials. Failed CPAP trial yesterday after 10 minutes. Objective Vital Signs Date Temp Pulse Resp B/P (MAP) Pulse Ox O2 O2 Flow FiO2 Time Delivery Rate 09/22/18 57 08:00 09/22/18 21 93 35 05:00 09/22/18 118/84 03:15 (95) 09/22/18 Mechanical 03:00 Ventilator 09/22/18 98.6 00:00 09/18/18 12.0 14:27 Intake and Output 09/21/18 09/21/18 09/22/18 1515:00 23:00 07:00 IntakeIntake Total 1392.74 ml 1425.44 ml 1120.47 ml OutputOutput Total 1225 ml 940 ml 850 ml BalanceBalance 167.74 ml 485.44 ml 270.47 ml Exam GENERAL: Frail elderly gentleman, on mechanical ventilation orally intubated VITAL SIGNS: per chart NECK: Supple. No JVD or lymphadenopathy. CARDIAC EXAM: S1, S2. No added sounds or murmurs. CHEST: Diminished air entry bilaterally ABDOMEN: Soft, nontender. No guarding or rebound. EXTREMITIES: No cyanosis, clubbing or edema. NEUROLOGIC: Generalized weakness. Vent Setting Ventilator Support Mode: AC, VC plus Fraction of Inspired Oxygen pe: 35 Positive End Expiratory Pressu: 5.0 Results/Medications Result Diagram: 09/22/18 0415 09/22/18 0415 Results 24 hrs Laboratory Tests Test 09/21/18 14:27 09/22/18 04:15 Sodium Level 146 H 151 H Potassium Level 4.4 4.7 Chloride Level 112 H 116 H Carbon Dioxide Level 33 H 34 H Anion Gap 1 L 1 L Blood Urea Nitrogen 40 H 44 H Creatinine 0.80 0.75 Est Glomerular Filtrat Rate mL/min > 60 > 60 Glucose Level 156 214 Calcium Level 8.4 8.6 White Blood Count 2.1 #L Red Blood Count 2.93 L Hemoglobin 8.3 L Hematocrit 27.6 L Mean Corpuscular Volume 94.2 Mean Corpuscular Hemoglobin 28.3 L Mean Corpuscular Hemoglobin Concent 30.1 L Red Cell Distribution Width 17.0 H Platelet Count 43 #L Mean Platelet Volume 12.3 H Immature Granulocytes % 0.500 H Neutrophils % 89.7 H Segmented Neutrophils % (Manual) 79 H Band Neutrophils % (Manual) 11 H Lymphocytes % 7.0 L Lymphocytes % (Manual) 10 L Monocytes % 2.8 Eosinophils % 0.0 Basophils % 0.0 Nucleated Red Blood Cells % 1 H Immature Granulocytes # 0.010 Neutrophils # 1.9 Neutrophils # (Manual) 1.7 Band Neutrophils # 0.2 Lymphocytes (Manual) 0.2 L Lymphocytes # 0.2 L Monocytes # 0.1 L Eosinophils # 0.0 Basophils # 0.0 Nucleated Red Blood Cells # 0.0 Platelet Estimate SIG DECREASED Giant Platelets 1 H Polychromasia 1+ Poikilocytosis 1+ Anisocytosis 1+ Microcytosis 1+ Ovalocytes 1+ Phosphorus Level 2.6 Magnesium Level 2.7 H Medications Current Medications Ondansetron HCl (Zofran Inj) 4 mg Q6H PRN IV NAUSEA AND/OR VOMITING Last administered on 09/06/18 18:46; Admin Dose 4 MG; Start 08/26/18 at 23:30 Acetaminophen (Tylenol Supp) 650 mg Q4H PRN [place] PAIN LEVEL 1-3 OR FEVER; Start 08/26/18 at 23:30 Aspirin (Aspirin) 81 mg DAILY PO Last administered on 09/22/18 08:29; Admin Dose 81 MG; Start 08/29/18 at 09:00 Famotidine (Pepcid) 20 mg Q12 PO Last administered on 09/22/18 08:29; Admin Dose 20 MG; Start 08/29/18 at 21:00 Zolpidem Tartrate (Ambien) 5 mg HS PRN PO INSOMNIA Last administered on 09/10/18 20:31; Admin Dose 5 MG; Start 09/01/18 at 00:00 Guaifenesin/ Dextromethorphan (Robitussin Dm Liquid Cup) 5 ml Q6H PRN PO COUGH Last administered on 09/15/18 05:16; Admin Dose 5 ML; Start 09/01/18 at 20:00 Morphine Sulfate (morphine) 6 mg Q4H PRN PO SEVERE PAIN LEVEL 7-10 Last administered on 09/21/18 08:35; Admin Dose 6 MG; Start 09/04/18 at 21:30 Albuterol/ Ipratropium (Duoneb) 3 ml Q3H RESP THERAPY PRN HHN SHORTNESS OF KRYSTLE ATH Last administered on 09/12/18 18:47; Admin Dose 3 ML; Start 09/05/18 at 20:00 Methylprednisolone Sodium Succinate (Solu-Medrol) 40 mg Q6 IV Last administered on 09/22/18 05:29; Admin Dose 40 MG; Start 09/07/18 at 12:00 Alteplase, Recombinant (Cathflo (Activase)) 2 mg MAY REPEAT X1 PRN CATHETER IF CATHETER REMAINS OCCULUDED; Start 09/07/18 at 11:00 Lorazepam (Ativan) 1 mg Q6H PRN IV PSYCHOSIS Last administered on 09/20/18 02:58; Admin Dose 1 MG; Start 09/12/18 at 02:00 Haloperidol (Haldol) 2 mg PRN PRN IM AGITATION Last administered on 09/17/18 00:44; Admin Dose 2 MG; Start 09/13/18 at 06:30 Risperidone (Risperdal) 2 mg BID PO Last administered on 09/22/18 08:30; Admin Dose 2 MG; Start 09/14/18 at 21:00 Divalproex Sodium (Depakote Sprinkle) 250 mg Q8H PO Last administered on 09/22/18 05:28; Admin Dose 250 MG; Start 09/15/18 at 21:00 Propofol 100 ml @ 1.875 mls/ hr Q12H IV Last administered on 09/20/18 01:14; Admin Dose 7.5 MLS/HR; Start 09/18/18 at 15:30 Ascorbic Acid (Vitamin C) 500 mg DAILY GTB Last administered on 09/22/18 08:28; Admin Dose 500 MG; Start 09/20/18 at 10:30 Phenylephrine HCl 80 mg/Dextrose 250 ml @ 18.75 mls/ hr TITRATE IV Last administered on 09/21/18 21:39; Admin Dose 7.5 MLS/HR; Start 09/21/18 at 01:00 Albuterol (Ventolin Hfa) 4 puff Q6H RESP THERAPY INH Last administered on 09/22/18 01:33; Admin Dose 4 PUFF; Start 09/21/18 at 14:00 Ipratropium [place] (Atrovent Hfa) 4 puff Q6H RESP THERAPY INH Last administered on 09/22/18at 01:32; Admin Dose 4 PUFF; Start 09/21/18 at 14:00 Levofloxacin/ Dextrose 100 ml @ 100 mls/hr Q24H IVPB Last administered on 09/21/18at 12:52; Admin Dose 100 MLS/HR; Start 09/21/18 at 12:00 Desmopressin Acetate (Ddavp) 2 mcg BID IV Last administered on 09/22/18at 08:29; Admin Dose 2 MCG; Start 09/22/18 at 09:00 Sodium Chloride 1,000 ml @ 100 mls/hr Q10H IV Last administered on 09/22/18at 08:28; Admin Dose 100 MLS/HR; Start 09/22/18 at 07:30 Midazolam HCl 50 ml @ 1 mls/hr TITRATE IV ; Start 09/22/18 at 10:00 Assessment/Plan Hospital Course (Demo Recall) iMP: 1. Acute on chronic hypoxic and hypercapnic respiratory failure--worse overnight with increased mucus plugging. Currently not able to liberate from mechanical ventilation 3. Encephalopathy toxic metabolic resolving 4. Advanced COPD 5. Hypernatremia likely free water deficit 6. Thrombocytopenia 7. Anemia RECS: 1. Failed multiple weaning trials. Continue mechanical ventilation. Patient may require tracheostomy. We will discuss goals of care with primary team. Patient is unlikely to come off mechanical ventilation at this point. 2. Continue tube feeding as tolerated 3. Pulmonary toilet 4. Consider increasing free water nephrology recommendations regarding hypernatremia Critical care time 40 minutes. KHUSHI PATTON MD, [facility] Sep 22, 2018 10:00
--- NOTE | 2018-09-22 10:27 | CONS ---
Assessment/Plan Assessment/Plan Hospital Course (Demo Recall) ID PROGRESS NOTE CURRENT ABX: DAY # => Levaquin #2 09/22/185 09/22/18414 24H INTERVAL SUMMARY * Cachectic 68 yo M -- failed CPAP trial yesterday * Orally intubated, non-communicative, TMax 99.8 yesterday - STARTED ON LEVAQUIN YESTERDAY FOR VAP * 09/20/18 CXR: Similar appearance of right greater than left basilar infiltrates. Small bilateral pleural effusions unchanged. * Indwelling: Endotracheal tube PEG Sellers MICRO/OTHER * BCx (-) * 09/19/18 RESP CX: RESPIRATORY CULTURE Final Organism 1 ENTEROBACTER CLOACAE QUANTITY 3+ E CLOACAE M.I.C. RX --------- --- CEFAZOLIN R CEFOTAXIME S CIPROFLOXACIN <=0.25 S GENTAMICIN <=1 S LEVOFLOXACIN <=0.12 S TOBRAMYCIN <=1 S TRIMETHOPRIM/SULFAMETHOXAZOLE <=20 S PHYSICAL EXAMINATION: GENERAL: Afebrile, VSS,cachexia, non-verbal HEENT: AT, NC, anicteric, edentulous, orally intubated NECK: Supple, trach midline CHEST: Equal chest rise bilaterally== Vented HEART: Pulse RRR ABDOMEN: Soft / NT EXTREMITIES: Warm, dry, muscle wasting SKIN: No rash, no diaphoresis ID ASSESSMENT 68 yo M admit with: 1. SIRS w/low grade temps, rising WBC 2. Respiratory failure due to recurrent Aspiration pneumonia * Dysphagia/peg with ongoing aspiration * 09/20/18 CXR: Similar appearance of right greater than left basilar infiltrates. Small bilateral pleural effusions unchanged. 4. Pneumoperitoneum of unclear etiology, no perforation per surgical note, status post chest tube 5. Dementia 5. Anemia with progressive thrombocytopenia 6. History of non-ST elevation SC 7. Status post cardiac arrest 8. RIJ TLC (-)MRSA Nares ABX ALLERGIES: KNDA INVASIVES: R-IJ/TLC, ETT, PEG, FC CURRENT ABX: DAY # => Levaquin #2 ID RECOMMENDATIONS/PLAN: 1. STARTED on Levaquin 500mg IV daily for HCAP -> ASP PNA Enterobacter = VAP . Consultation Date/Type/Reason Admit Date/Time Aug 27, 2018 at 00:03 Initial Consult Date 08/27/18 Requesting Provider: VIVIANA NOLAN MD Date/Time of Note DATE: 09/22/18 TIME: 10:23 Exam/Review of Systems Exam Vitals Vital Signs Date Temp Pulse Resp B/P (MAP) Pulse Ox O2 O2 Flow FiO2 Time Delivery Rate 09/22/18 57 08:00 09/22/18 21 93 35 05:00 09/22/18 118/84 03:15 (95) 09/22/18 Mechanical 03:00 Ventilator 09/22/18 98.6 00:00 09/18/18 12.0 14:27 Intake and Output 09/21/18 09/21/18 09/22/18 1515:00 23:00 07:00 IntakeIntake Total 1392.74 ml 1425.44 ml 1120.47 ml OutputOutput Total 1225 ml 940 ml 850 ml BalanceBalance 167.74 ml 485.44 ml 270.47 ml Results Result Diagram: 09/22/18 0415 09/22/18 0415 Results 24hrs Laboratory Tests Test 09/21/18 14:27 09/22/18 04:15 Sodium Level 146 H 151 H Potassium Level 4.4 4.7 Chloride Level 112 H 116 H Carbon Dioxide Level 33 H 34 H Anion Gap 1 L 1 L Blood Urea Nitrogen 40 H 44 H Creatinine 0.80 0.75 Est Glomerular Filtrat Rate mL/min > 60 > 60 Glucose Level 156 214 Calcium Level 8.4 8.6 White Blood Count 2.1 #L Red Blood Count 2.93 L Hemoglobin 8.3 L Hematocrit 27.6 L Mean Corpuscular Volume 94.2 Mean Corpuscular Hemoglobin 28.3 L Mean Corpuscular Hemoglobin Concent 30.1 L Red Cell Distribution Width 17.0 H Platelet Count 43 #L Mean Platelet Volume 12.3 H Immature Granulocytes % 0.500 H Neutrophils % 89.7 H Segmented Neutrophils % (Manual) 79 H Band Neutrophils % (Manual) 11 H Lymphocytes % 7.0 L Lymphocytes % (Manual) 10 L Monocytes % 2.8 Eosinophils % 0.0 Basophils % 0.0 Nucleated Red Blood Cells % 1 H Immature Granulocytes # 0.010 Neutrophils # 1.9 Neutrophils # (Manual) 1.7 Band Neutrophils # 0.2 Lymphocytes (Manual) 0.2 L Lymphocytes # 0.2 L Monocytes # 0.1 L Eosinophils # 0.0 Basophils # 0.0 Nucleated Red Blood Cells # 0.0 Platelet Estimate SIG DECREASED Giant Platelets 1 H Polychromasia 1+ Poikilocytosis 1+ Anisocytosis 1+ Microcytosis 1+ Ovalocytes 1+ Phosphorus Level 2.6 Magnesium Level 2.7 H Medications Medication Current Medications Ondansetron HCl (Zofran Inj) 4 mg Q6H PRN IV NAUSEA AND/OR VOMITING Last administered on 09/06/18 18:46; Admin Dose 4 MG; Start 08/26/18 at 23:30 Acetaminophen (Tylenol Supp) 650 mg Q4H PRN [place] PAIN LEVEL 1-3 OR FEVER; Start 08/26/18 at 23:30 Aspirin (Aspirin) 81 mg DAILY PO Last administered on 09/22/18 08:29; Admin Dose 81 MG; Start 08/29/18 at 09:00 Famotidine (Pepcid) 20 mg Q12 PO Last administered on 09/22/18 08:29; Admin Dose 20 MG; Start 08/29/18 at 21:00 Zolpidem Tartrate (Ambien) 5 mg HS PRN PO INSOMNIA Last administered on 09/10/18 20:31; Admin Dose 5 MG; Start 09/01/18 at 00:00 Guaifenesin/ Dextromethorphan (Robitussin Dm Liquid Cup) 5 ml Q6H PRN PO COUGH Last administered on 09/15/18 05:16; Admin Dose 5 ML; Start 09/01/18 at 20:00 Morphine Sulfate (morphine) 6 mg Q4H PRN PO SEVERE PAIN LEVEL 7-10 Last administered on 09/21/18 08:35; Admin Dose 6 MG; Start 09/04/18 at 21:30 Albuterol/ Ipratropium (Duoneb) 3 ml Q3H RESP THERAPY PRN HHN SHORTNESS OF BREATH Last administered on 09/12/18 18:47; Admin Dose 3 ML; Start 09/05/18 at 20:00 Methylprednisolone Sodium Succinate (Solu-Medrol) 40 mg Q6 IV Last administered on 09/22/18 05:29; Admin Dose 40 MG; Start 09/07/18 at 12:00 Alteplase, Recombinant (Cathflo (Activase)) 2 mg MAY REPEAT X1 PRN CATHETER IF CATHETER REMAINS OCCULUDED; Start 09/07/18 at 11:00 Lorazepam (Ativan) 1 mg Q6H PRN IV PSYCHOSIS Last administered on 09/20/18 02:58; Admin Dose 1 MG; Start 09/12/18 at 02:00 Haloperidol (Haldol) 2 mg PRN PRN IM AGITATION Last administered on 09/17/18 00:44; Admin Dose 2 MG; Start 09/13/18 at 06:30 Risperidone (Risperdal) 2 mg BID PO Last administered on 09/22/18 08:30; Admin Dose 2 MG; Start 09/14/18 at 21:00 Divalproex Sodium (Depakote Sprinkle) 250 mg Q8H PO Last administered on 09/22/18 05:28; Admin Dose 250 MG; Start 09/15/18 at 21:00 Propofol 100 ml @ 1.875 mls/ hr Q12H IV Last administered on 09/20/18 01:14; Admin Dose 7.5 MLS/HR; Start 09/18/18 at 15:30 Ascorbic Acid (Vitamin C) 500 mg DAILY GTB Last administered on 09/22/18 08:28; Admin Dose 500 MG; Start 09/20/18 at 10:30 Phenylephrine HCl 80 mg/Dextrose 250 ml @ 18.75 mls/ hr TITRATE IV Last administered on 09/21/18 21:39; Admin Dose 7.5 MLS/HR; Start 09/21/18 at 01:00 Albuterol (Ventolin Hfa) 4 puff Q6H RESP THERAPY INH Last administered on 09/22/18 01:33; Admin Dose 4 PUFF; Start 09/21/18 at 14:00 Ipratropium [place] (Atrovent Hfa) 4 puff Q6H RESP THERAPY INH Last administered on 09/22/18 01:32; Admin Dose 4 PUFF; Start 09/21/18 at 14:00 Levofloxacin/ Dextrose 100 ml @ 100 mls/hr Q24H IVPB Last administered on 09/21/18 12:52; Admin Dose 100 MLS/HR; Start 09/21/18 at 12:00 Desmopressin Acetate (Ddavp) 2 mcg BID IV Last administered on 09/22/18at 08:29; Admin Dose 2 MCG; Start 09/22/18 at 09:00 Sodium Chloride 1,000 ml @ 100 mls/hr Q10H IV Last administered on 09/22/18at 08:28; Admin Dose 100 MLS/HR; Start 09/22/18 at 07:30 Midazolam HCl 50 ml @ 1 mls/hr TITRATE IV ; Start 09/22/18 at 10:00 NEIL BRADEN NP Sep 22, 2018 10:27
[2018-09-22] MEDS: MIDAZOLAM (DRIP) 50 mg/50 mL 50 ML IV SCH ×2 (10:49→23:49)
--- NOTE | 2018-09-22 11:04 | PN ---
DATE: 09/22/2018 SUBJECTIVE: The patient remains critically ill on IV pressors. The patient continues to have copiou s amount of urinary output. After deescalating desmopressin. No other acute events noted. OBJECTIVE: VITAL SIGNS: Blood pressure is 118/84, respiration 21, pulse 63, temperature 98.6. HEENT: Head is normocephalic. NECK: Supple. HEART: Regular rate. LUNGS: Show diminished breath sounds at the base. ABDOMEN: Soft, nontender to palpation without rebound or guarding. EXTREMITIES: Negative for clubbing, cyanosis, no edema. DERMATOLOGIC: No rashes. MUSCULOSKELETAL: No joint effusion. NEUROLOGIC: No change in exam. MEDICATIONS: Reviewed. LABORATORY DATA: Shows sodium 151, potassium 4.7, chloride 116, bicarb 34, BUN 44, creatinine 0.75. White count 2.1, hemoglobin 8.3, platelet count is 43. The patient's cultures were reviewed. IMAGING: Chest x-ray from 09/20/2018 was reviewed. ASSESSMENT AND PLAN: 1. Hypernatremia. 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 The patient was placed on a trial of desmopressin without any significant change in urinary osmol arity suggesting a nephrogenic source. However, upon deescalation of desmopressin, the patient's uri nary output markedly increased. Plan is to resume desmopressin at 2 mcg b.i.d. Will repeat urine os molarity. We will also increase free water flushes to 300 mL q.4 hours. Will change IV fluids to rothman lf NS at 100 mL an hour. Will continue to monitor serial sodium levels closely. If the patient is t o become hemodynamically more stable, will consider starting hydrochlorothiazide and/or amiloride to treat a nephrogenic DI. 2. Nonoliguric acute kidney injury with unknown baseline creatinine. Etiology is secondary to hemod ynamics, acute tubular necrosis. The patient's renal function is stabilizing. Continue current romeo tment plan, supportive care, renally dose all meds. 3. Metabolic alkalosis with respiratory compensation. Continue to monitor. 4. Anemia. Monitor hemoglobin and hematocrit levels. 5. Mineral bone disorder. Monitor calcium and phosphorus levels. 6. Diastolic heart failure. The patient appears compensated currently in shock. Continue to monito r. 7. Ventilator-dependent respiratory failure. Vent settings and ABG was reviewed. Continue to monit or. Follow up with pulmonary. 8. Dysphagia, status post PEG. Continue tube feeding. 9. Septic shock secondary to pneumonia. Continue current medical management. Continue pressor supp ort, IV fluids, antibiotic therapy. 10. Acute encephalopathy. Etiology is toxic metabolic. 11. Pleural effusion. The patient is status post thoracentesis. 12. Deep venous thrombosis. Continue medical management. 13. Status post cardiac arrest. 14. Status post pneumothorax. 15. Status post pneumoperitoneum. Please note I spent over 30 minutes of critical care time with this patient. Dictated By: JOE BLACK DO NR/NTS Conf#: [id number] DID#: [id number] CC: WENDY LOVE MD;*EndCC*
--- NOTE | 2018-09-22 11:11 | PN ---
Date/Time of Note Date/Time of Note DATE: 09/22/18 TIME: 11:11 Assessment/Plan VTE Prophylaxis Risk score (from Nsg)>0 risk: 12 SCD applied (from Nsg): Yes Lines/Catheters IV Catheter Type (from Nrsg): Central Line Urinary Cath still in place: Yes Reason Cath still needed: urinary retention Assessment/Plan Assessment/Plan -Dysphagia. That is post G-tube placement by Dr. Munguia. -Hypoxic respiratory failure requiring mechanical ventilation, extubated and now intubated for elective PEG placement. Dr. Mejias is following in pulmonology consultation. -Sepsis with shock, resolving. Dr. Sutton is following in infection disease consultation. -Status post cardiac arrest. Dr. Hernández is following in cardiology consultation. -Left-sided pneumothorax, status post left side chest tube placement, s/p self d/c CT. -S/p pneumoperitoneum most likely due to cardiac arrest, resolved. Dr. Rivas is following in general surgery consultation. -Left axillary and brachial DVT, LUE swelling subsided, was on Lovenox which is currently held due to thrombocytopenia -Left lower lobe pneumonia -Severe emphysema -JEREMÍAS with possible chronic kidney disease. Dr Arvizu is following in nephrology consultation. -Hyper natremia, continue free water via G-tube, IV fluids with dextrose. -Schizoaffective disorder depressed type. Psychiatric consult is appreciated, continue Risperdal Depakote Total critical care time spent 35 mins. Further recommendations based on clinical course. Plan of care discussed with Dr. Juarez. Result Diagram: 09/22/18 0415 09/22/18 0415 Results 24hrs Laboratory Tests Test 09/21/18 14:27 09/22/18 04:15 Sodium Level 146 H 151 H Potassium Level 4.4 4.7 Chloride Level 112 H 116 H Carbon Dioxide Level 33 H 34 H Anion Gap 1 L 1 L Blood Urea Nitrogen 40 H 44 H Creatinine 0.80 0.75 Est Glomerular Filtrat Rate mL/min > 60 > 60 Glucose Level 156 214 Calcium Level 8.4 8.6 White Blood Count 2.1 #L Red Blood Count 2.93 L Hemoglobin 8.3 L Hematocrit 27.6 L Mean Corpuscular Volume 94.2 Mean Corpuscular Hemoglobin 28.3 L Mean Corpuscular Hemoglobin Concent 30.1 L Red Cell Distribution Width 17.0 H Platelet Count 43 #L Mean Platelet Volume 12.3 H Immature Granulocytes % 0.500 H Neutrophils % 89.7 H Segmented Neutrophils % (Manual) 79 H Band Neutrophils % (Manual) 11 H Lymphocytes % 7.0 L Lymphocytes % (Manual) 10 L Monocytes % 2.8 Eosinophils % 0.0 Basophils % 0.0 Nucleated Red Blood Cells % 1 H Immature Granulocytes # 0.010 Neutrophils # 1.9 Neutrophils # (Manual) 1.7 Band Neutrophils # 0.2 Lymphocytes (Manual) 0.2 L Lymphocytes # 0.2 L Monocytes # 0.1 L Eosinophils # 0.0 Basophils # 0.0 Nucleated Red Blood Cells # 0.0 Platelet Estimate SIG DECREASED Giant Platelets 1 H Polychromasia 1+ Poikilocytosis 1+ Anisocytosis 1+ Microcytosis 1+ Ovalocytes 1+ Phosphorus Level 2.6 Magnesium Level 2.7 H Exam/Review of Systems Exam Vitals Vital Signs Date Temp Pulse Resp B/P (MAP) Pulse Ox O2 O2 Flow FiO2 Time Delivery Rate 09/22/18 35 08:00 09/22/18 57 08:00 09/22/18 21 93 05:00 09/22/18 118/84 03:15 (95) 09/22/18 Mechanical 03:00 Ventilator 09/22/18 98.6 00:00 09/18/18 12.0 14:27 Intake and Output 09/21/18 09/21/18 09/22/18 1414:59 22:59 06:59 IntakeIntake Total 1379.63 ml 1436.83 ml 1249.69 ml OutputOutput Total 1200 ml 1070 ml 970 ml BalanceBalance 179.63 ml 366.83 ml 279.69 ml Results Results 24hrs Laboratory Tests Test 09/21/18 14:27 09/22/18 04:15 Sodium Level 146 H 151 H Potassium Level 4.4 4.7 Chloride Level 112 H 116 H Carbon Dioxide Level 33 H 34 H Anion Gap 1 L 1 L Blood Urea Nitrogen 40 H 44 H Creatinine 0.80 0.75 Est Glomerular Filtrat Rate mL/min > 60 > 60 Glucose Level 156 214 Calcium Level 8.4 8.6 White Blood Count 2.1 #L Red Blood Count 2.93 L Hemoglobin 8.3 L Hematocrit 27.6 L Mean Corpuscular Volume 94.2 Mean Corpuscular Hemoglobin 28.3 L Mean Corpuscular Hemoglobin Concent 30.1 L Red Cell Distribution Width 17.0 H Platelet Count 43 #L Mean Platelet Volume 12.3 H Immature Granulocytes % 0.500 H Neutrophils % 89.7 H Segmented Neutrophils % (Manual) 79 H Band Neutrophils % (Manual) 11 H Lymphocytes % 7.0 L Lymphocytes % (Manual) 10 L Monocytes % 2.8 Eosinophils % 0.0 Basophils % 0.0 Nucleated Red Blood Cells % 1 H Immature Granulocytes # 0.010 Neutrophils # 1.9 Neutrophils # (Manual) 1.7 Band Neutrophils # 0.2 Lymphocytes (Manual) 0.2 L Lymphocytes # 0.2 L Monocytes # 0.1 L Eosinophils # 0.0 Basophils # 0.0 Nucleated Red Blood Cells # 0.0 Platelet Estimate SIG DECREASED Giant Platelets 1 H Polychromasia 1+ Poikilocytosis 1+ Anisocytosis 1+ Microcytosis 1+ Ovalocytes 1+ Phosphorus Level 2.6 Magnesium Level 2.7 H Medications Medication Current Medications Ondansetron HCl (Zofran Inj) 4 mg Q6H PRN IV NAUSEA AND/OR VOMITING Last administered on 09/06/18 18:46; Admin Dose 4 MG; Start 08/26/18 at 23:30 Acetaminophen (Tylenol Supp) 650 mg Q4H PRN ME PAIN LEVEL 1-3 OR FEVER; Start 08/26/18 at 23:30 Aspirin (Aspirin) 81 mg DAILY PO Last administered on 09/22/18 08:29; Admin Dose 81 MG; Start 08/29/18 at 09:00 Famotidine (Pepcid) 20 mg Q12 PO Last administered on 09/22/18 08:29; Admin Dose 20 MG; Start 08/29/18 at 21:00 Zolpidem Tartrate (Ambien) 5 mg HS PRN PO INSOMNIA Last administered on 09/10/18 20:31; Admin Dose 5 MG; Start 09/01/18 at 00:00 Guaifenesin/ Dextromethorphan (Robitussin Dm Liquid Cup) 5 ml Q6H PRN PO COUGH Last administered on 09/15/18 05:16; Admin Dose 5 ML; Start 09/01/18 at 20:00 Morphine Sulfate (morphine) 6 mg Q4H PRN PO SEVERE PAIN LEVEL 7-10 Last administered on 09/21/18 08:35; Admin Dose 6 MG; Start 09/04/18 at 21:30 Albuterol/ Ipratropium (Duoneb) 3 ml Q3H RESP THERAPY PRN HHN SHORTNESS OF GERBER TH Last administered on 09/12/18 18:47; Admin Dose 3 ML; Start 09/05/18 at 20:00 Methylprednisolone Sodium Succinate (Solu-Medrol) 40 mg Q6 IV Last administered on 09/22/18 05:29; Admin Dose 40 MG; Start 09/07/18 at 12:00 Alteplase, Recombinant (Cathflo (Activase)) 2 mg MAY REPEAT X1 PRN CATHETER IF CATHETER REMAINS OCCULUDED; Start 09/07/18 at 11:00 Lorazepam (Ativan) 1 mg Q6H PRN IV PSYCHOSIS Last administered on 09/20/18 02:58; Admin Dose 1 MG; Start 09/12/18 at 02:00 Haloperidol (Haldol) 2 mg PRN PRN IM AGITATION Last administered on 09/17/18 00:44; Admin Dose 2 MG; Start 09/13/18 at 06:30 Risperidone (Risperdal) 2 mg BID PO Last administered on 09/22/18 08:30; Admin Dose 2 MG; Start 09/14/18 at 21:00 Divalproex Sodium (Depakote Sprinkle) 250 mg Q8H PO Last administered on 09/22/18 05:28; Admin Dose 250 MG; Start 09/15/18 at 21:00 Propofol 100 ml @ 1.875 mls/ hr Q12H IV Last administered on 09/20/18 01:14; Admin Dose 7.5 MLS/HR; Start 09/18/18 at 15:30 Ascorbic Acid (Vitamin C) 500 mg DAILY GTB Last administered on 09/22/18 08:28; Admin Dose 500 MG; Start 09/20/18 at 10:30 Phenylephrine HCl 80 mg/Dextrose 250 ml @ 18.75 mls/ hr TITRATE IV Last administered on 09/21/18 21:39; Admin Dose 7.5 MLS/HR; Start 09/21/18 at 01:00 Albuterol (Ventolin Hfa) 4 puff Q6H RESP THERAPY INH Last administered on 09/22/18 01:33; Admin Dose 4 PUFF; Start 09/21/18 at 14:00 Ipratropium [place] (Atrovent Hfa) 4 puff Q6H RESP THERAPY INH Last administered on 09/22/18 01:32; Admin Dose 4 PUFF; Start 09/21/18 at 14:00 Levofloxacin/ Dextrose 100 ml @ 100 mls/hr Q24H IVPB Last administered on 09/21/18 12:52; Admin Dose 100 MLS/HR; Start 09/21/18 at 12:00 Desmopressin Acetate (Ddavp) 2 mcg BID IV Last administered on 09/22/18 08:29; Admin Dose 2 MCG; Start 09/22/18 at 09:00 Sodium Chloride 1,000 ml @ 100 mls/hr Q10H IV Last administered on 09/22/18 08:28; Admin Dose 100 MLS/HR; Start 09/22/18 at 07:30 Midazolam HCl 50 ml @ 1 mls/hr TITRATE IV Last administered on 09/22/18 10:49; Admin Dose 4 MLS/HR; Start 09/22/18 at 10:00 KEDAR LUGO Sep 22, 2018 11:11
--- NOTE | 2018-09-22 13:27 | CONS ---
Consult Date/Type/Reason Admit Date/Time Aug 27, 2018 at 00:03 Initial Consult Date 08/27/18 Type of Consultation: Pulm/CCM Requesting Provider: VIVIANA NOLAN MD Date/Time of Note DATE: 09/22/18 TIME: 13:25 Subjective NO acute e vents - pt intubated - HR in mid 40s - stable BP - no indication for pacing now. NO F/C/N/V/D Objective Vitals Vital Signs Date Temp Pulse Resp B/P (MAP) Pulse Ox O2 O2 Flow FiO2 Time Delivery Rate 09/22/18 49 12:00 09/22/18 16 95/71 (79) 98 11:15 09/22/18 Mechanical 11:00 Ventilator 09/22/18 97.8 08:00 09/22/18 35 08:00 09/18/18 12.0 14:27 Intake and Output 09/21/18 09/21/18 09/22/18 1515:00 23:00 07:00 IntakeIntake Total 1392.74 ml 1425.44 ml 1196.97 ml OutputOutput Total 1225 ml 940 ml 850 ml BalanceBalance 167.74 ml 485.44 ml 346.97 ml Exam General: WN/WD/NAD, AOx comfortable HEENT: Unicetric/atraumatic/EOMI ( follow commands) NECK: JVD elevated, no thyromegaly, intubated Lymph: no lymphadenopathy HEART: regular with no S3, II/ systolic murmur at apex LUNGS: Coarse sounds ABD: soft, NT, ND, +BS : Intact Neuro: non focal SKIN: chronic changes EXT: trace edema Results/Medications Result Diagram: 09/22/18 0415 09/22/18 0415 Results 24 hrs Laboratory Tests Test 09/21/18 14:27 09/22/18 04:15 Sodium Level 146 H 151 H Potassium Level 4.4 4.7 Chloride Level 112 H 116 H Carbon Dioxide Level 33 H 34 H Anion Gap 1 L 1 L Blood Urea Nitrogen 40 H 44 H Creatinine 0.80 0.75 Est Glomerular Filtrat Rate mL/min > 60 > 60 Glucose Level 156 214 Calcium Level 8.4 8.6 White Blood Count 2.1 #L Red Blood Count 2.93 L Hemoglobin 8.3 L Hematocrit 27.6 L Mean Corpuscular Volume 94.2 Mean Corpuscular Hemoglobin 28.3 L Mean Corpuscular Hemoglobin Concent 30.1 L Red Cell Distribution Width 17.0 H Platelet Count 43 #L Mean Platelet Volume 12.3 H Immature Granulocytes % 0.500 H Neutrophils % 89.7 H Segmented Neutrophils % (Manual) 79 H Band Neutrophils % (Manual) 11 H Lymphocytes % 7.0 L Lymphocytes % (Manual) 10 L Monocytes % 2.8 Eosinophils % 0.0 Basophils % 0.0 Nucleated Red Blood Cells % 1 H Immature Granulocytes # 0.010 Neutrophils # 1.9 Neutrophils # (Manual) 1.7 Band Neutrophils # 0.2 Lymphocytes (Manual) 0.2 L Lymphocytes # 0.2 L Monocytes # 0.1 L Eosinophils # 0.0 Basophils # 0.0 Nucleated Red Blood Cells # 0.0 Platelet Estimate SIG DECREASED Giant Platelets 1 H Polychromasia 1+ Poikilocytosis 1+ Anisocytosis 1+ Microcytosis 1+ Ovalocytes 1+ Phosphorus Level 2.6 Magnesium Level 2.7 H Home Meds Reported Medications Docusate Sodium* (Colace*) 100 Mg Capsule, 100 MG PO Q24H PRN for CONSTIPATION, #30 CAP 08/26/18 Polyethylene Glycol* (Miralax*) 17 Gm Powd.pack, 17 GM PO DAILY PRN for NEEDED, #30 PACKET 08/26/18 Acetaminophen* (Acetaminophen*) 325 Mg Tablet, 650 MG PO Q4H PRN for PAIN -, #30 TAB AND FEVER>101F 08/26/18 Sennosides* (Senna Lax*) 8.6 Mg Tablet, 1 TAB PO NEEDED, TAB 08/26/18 Mv,Minerals/Fa/Lycopene/Ginkgo (ONE DAILY MEN'S 50+ TABLET) 1 Each Tablet, 1 EACH PO DAILY, TAB 08/26/18 Divalproex Sodium* (Depakote*) 125 Mg Tablet.dr, 250 MG PO Q8H, #90 TAB 08/26/18 Quetiapine Fumarate* (Seroquel*) 50 Mg Tablet, 50 MG PO Q8H, TAB 08/26/18 Ipratropium-Albuterol (Ipratropium-Albuterol) 0.5-3 Mg/3 Ml Ampul.neb, 3 ML INHALATION Q4H PRN for WHEEZING AND SOB, #30 VIAL 08/26/18 Budesonide-Formoterol Fumarate* (Symbicort*) 160-4.5 Hfa.aer.ad, 2 PUFF INHALATION BID, #1 EACH 08/26/18 Medications Current Medications Ondansetron HCl (Zofran Inj) 4 mg Q6H PRN IV NAUSEA AND/OR VOMITING Last administered on 09/06/18 18:46; Admin Dose 4 MG; Start 08/26/18 at 23:30 Acetaminophen (Tylenol Supp) 650 mg Q4H PRN [place] PAIN LEVEL 1-3 OR FEVER; Start 08/26/18 at 23:30 Aspirin (Aspirin) 81 mg DAILY PO Last administered on 09/22/18 08:29; Admin Dose 81 MG; Start 08/29/18 at 09:00 Famotidine (Pepcid) 20 mg Q12 PO Last administered on 09/22/18 08:29; Admin Dose 20 MG; Start 08/29/18 at 21:00 Zolpidem Tartrate (Ambien) 5 mg HS PRN PO INSOMNIA Last administered on 09/10/18 20:31; Admin Dose 5 MG; Start 09/01/18 at 00:00 Guaifenesin/ Dextromethorphan (Robitussin Dm Liquid Cup) 5 ml Q6H PRN PO COUGH Last administered on 09/15/18 05:16; Admin Dose 5 ML; Start 09/01/18 at 20:00 Morphine Sulfate (morphine) 6 mg Q4H PRN PO SEVERE PAIN LEVEL 7-10 Last administered on 09/21/18 08:35; Admin Dose 6 MG; Start 09/04/18 at 21:30 Albuterol/ Ipratropium (Duoneb) 3 ml Q3H RESP THERAPY PRN HHN SHORTNESS OF BREATH Last administered on 09/12/18 18:47; Admin Dose 3 ML; Start 09/05/18 at 20:00 Methylprednisolone Sodium Succinate (Solu-Medrol) 40 mg Q6 IV Last administered on 09/22/18 05:29; Admin Dose 40 MG; Start 09/07/18 at 12:00 Alteplase, Recombinant (Cathflo (Activase)) 2 mg MAY REPEAT X1 PRN CATHETER IF CATHETER REMAINS OCCULUDED; Start 09/07/18 at 11:00 Lorazepam (Ativan) 1 mg Q6H PRN IV PSYCHOSIS Last administered on 09/20/18 02:58; Admin Dose 1 MG; Start 09/12/18 at 02:00 Haloperidol (Haldol) 2 mg PRN PRN IM AGITATION Last administered on 09/17/18 00:44; Admin Dose 2 MG; Start 09/13/18 at 06:30 Risperidone (Risperdal) 2 mg BID PO Last administered on 09/22/18 08:30; Admin Dose 2 MG; Start 09/14/18 at 21:00 Divalproex Sodium (Depakote Sprinkle) 250 mg Q8H PO Last administered on 09/22/18 05:28; Admin Dose 250 MG; Start 09/15/18 at 21:00 Propofol 100 ml @ 1.875 mls/ hr Q12H IV Last administered on 09/20/18 01:14; Admin Dose 7.5 MLS/HR; Start 09/18/18 at 15:30 Ascorbic Acid (Vitamin C) 500 mg DAILY GTB Last administered on 09/22/18 08:28; Admin Dose 500 MG; Start 09/20/18 at 10:30 Phenylephrine HCl 80 mg/Dextrose 250 ml @ 18.75 mls/ hr TITRATE IV Last administered on 09/21/18 21:39; Admin Dose 7.5 MLS/HR; Start 09/21/18 at 01:00 Albuterol (Ventolin Hfa) 4 puff Q6H RESP THERAPY INH Last administered on 09/22/18 01:33; Admin Dose 4 PUFF; Start 09/21/18 at 14:00 Ipratropium [place] (Atrovent Hfa) 4 puff Q6H RESP THERAPY INH Last administered on 09/22/18 01:32; Admin Dose 4 PUFF; Start 09/21/18 at 14:00 Levofloxacin/ Dextrose 100 ml @ 100 mls/hr Q24H IVPB Last administered on 09/21/18 12:52; Admin Dose 100 MLS/HR; Start 09/21/18 at 12:00 Desmopressin Acetate (Ddavp) 2 mcg BID IV Last administered on 09/22/18 08:29; Admin Dose 2 MCG; Start 09/22/18 at 09:00 Sodium Chloride 1,000 ml @ 100 mls/hr Q10H IV Last administered on 09/22/18at 08:28; Admin Dose 100 MLS/HR; Start 09/22/18 at 07:30 Midazolam HCl 50 ml @ 1 mls/hr TITRATE IV Last administered on 09/22/18at 10:49; Admin Dose 4 MLS/HR; Start 09/22/18 at 10:00 Assessment/Plan Hospital Course (Demo Recall) 1.Hypotension- BP now maintained. 2.Resp failure s/p re-intubation - pulm team follows. 3.h/o cardiac arrest - etiology unclear - con't supportive RX now. Stable now - of tele. No cardiac intervention currently planned. 4.Pneumoperitoneum - self d/c chest tube - stable SOB now. Con't Rx. NO new fevers. 5.Positive troponin-now trended neg - will monitor clinically for now. No intervention planned. NO CP noted. 6.renal failure - good urine output. 7.Leukocytosis - on anti-Bx, con't med rx. On anti-Bx. 8. anemia - H/H stable - no bleeding noted. 9, Thrombocytopenia - no active bleeds noted. 10 DVT - low plts - defer to hematology for anti-coagulation. 11. Bardy - sinus valerie - no indication for pacer now. JIE ALEJO MD Sep 22, 2018 13:27
[2018-09-22] MEDS: LEVOFLOXACIN 500MG/D5W (PMX) 100 ML IVPB SCH (13:40)
[2018-09-23] VITALS (48 sets, daily range): BP systolic 74–118; BP diastolic 46–84; PULSE 87–114; RESP 16–36
[2018-09-23] MEDS: METHYLPREDNISOLONE 40 MG INJ IV SCH ×5 (00:12→23:39)
[2018-09-23] MEDS: IPRATROPIUM (HFA) 12.9 GM INHALER INH SCH ×4 (01:03→19:20)
[2018-09-23] MEDS: ALBUTEROL HFA 8 GM INHALER INH SCH ×4 (01:03→19:20)
[2018-09-23] MEDS: PROPOFOL 100 ML IV SCH ×2 (03:30→15:30)
[2018-09-23] MEDS: DIVALPROEX SPRINKLE 125 MG CAP PO SCH ×4 (05:11→20:55)
[2018-09-23] MEDS: SOD CHLORIDE 0.45% 1,000 ML IV SCH ×2 (07:19→17:11)
[2018-09-23] MEDS: FAMOTIDINE 20 MG TAB PO SCH ×2 (08:44→20:54)
[2018-09-23] MEDS: RISPERIDONE 1 MG TAB PO SCH ×2 (08:45→20:53)
[2018-09-23] MEDS: ASPIRIN 81 MG TAB PO SCH (08:45)
[2018-09-23] MEDS: BALSAM PERU/CASTOR OIL 60 GM TUBE TOP SCH (08:45)
[2018-09-23] MEDS: DESMOPRESSIN 4 MCG INJ IV SCH ×2 (08:45→20:53)
[2018-09-23] MEDS: ASCORBIC ACID 500 MG TAB GTB SCH (08:45)
--- NOTE | 2018-09-23 08:47 | PN ---
DATE: 09/23/2018 SUBJECTIVE: The patient remains critically ill on full ventilator support. Urinary output remains greater than 1 liter overnight. No other acute events noted. No hemoptysis, hematemesis, hematochezia. OBJECTIVE: VITAL SIGNS: Blood pressure is 97/76, respirations 25, pulse 108, temperature 98.6. HEENT: Head is normocephalic. NECK: Supple. HEART: Regular rate. LUNGS: Show diminished breath sounds at the base. ABDOMEN: Soft, nontender to palpation without rebound or guarding. EXTREMITIES: Negative for clubbing, cyanosis, no edema. DERMATOLOGIC: No rashes. MUSCULOSKELETAL: No joint effusion. NEUROLOGIC: No change in exam. MEDICATIONS: The patient's medications have been reviewed. LABORATORY DATA: Shows sodium 148, potassium 4.6, chloride 109, BUN 45, creatinine 0.76. White count 2.0, hemoglobin 8.3, platelet count is 38. Urinalysis shows FENa less than 1%, a urine osmolarity of 284. ASSESSMENT AND PLAN: 1. Hypernatremia. Etiology secondary to diabetes insipidus, likely nephrogenic. The patient, despite being on a trial of desmopressin, has not shown any significant improvement in urine osmolarity. At this point, will start the patient on hydrochlorothiazide which can induce intravascular volume depletion, resulting in increased water reabsorption in the proximal tubules. Continue aggressive free water flushes and hypotonic fluid. We will monitor serial sodium levels closely. 3. Nonoliguric kidney injury with unknown baseline creatinine. Etiology secondary to hemodynamics, acute tubular necrosis. Renal function stabilized. Continue current treatment plans, supportive care, renally dose all medication. 4. Metabolic alkalosis with respiratory compensation. Continue to monitor. 5. Anemia. Continue to monitor hemoglobin and hematocrit levels. 6. Mineral bone disorder. Monitor calcium and phosphorus levels. 7. Diastolic heart failure. The patient appears compensated. Continue to monitor. 8. Ventilator dependent respiratory failure. Vent settings and ABG was reviewed. Continue current management. Follow up with pulmonary. 9. Dysphagia, status post PEG, continue tube feeding. 10. Sepsis, status post shock secondary to pneumonia. Continue current medical management. Continue pressor support, IV fluids, antibiotic therapy. 11. Acute encephalopathy, etiology is toxic metabolic. 12. Pleural effusion, status post thoracentesis. 13. History of deep venous thrombosis. Continue medical management. 14. Status post cardiac arrest. 15. Status post pneumothorax. 16. Status post pneumoperitoneum. Please note I spent over 30 minutes of critical care time with this patient. Dictated By: JOE BLACK DO NR/DUKE Conf#: [id number] DID#: [id number] CC: WENDY LOVE MD;*EndCC* MTDD
[2018-09-23] MEDS: HYDROCHLOROTHIAZIDE 25 MG TAB GTB SCH (08:59)
--- NOTE | 2018-09-23 09:23 | CONS ---
Assessment/Plan Assessment/Plan Hospital Course (Demo Recall) ID PROGRESS NOTE CURRENT ABX: DAY # => Levaquin #3 09/23/189 09/23/189 24H INTERVAL SUMMARY * Not much change from yesterday, Cachectic-frail 68 yo M -- failed CPAP trials * Orally intubated, non-communicative, TMax 99.8 on 09/21/17 * 09/20/18 CXR: Similar appearance of right greater than left basilar infiltrates. Small bilateral pleural effusions unchanged. * Indwelling: Endotracheal tube PEG Sellers MICRO/OTHER * BCx (-) * 09/19/18 RESP CX: RESPIRATORY CULTURE Final Organism 1 ENTEROBACTER CLOACAE QUANTITY 3+ E CLOACAE M.I.C. RX --------- --- CEFAZOLIN R CEFOTAXIME S CIPROFLOXACIN <=0.25 S GENTAMICIN <=1 S LEVOFLOXACIN <=0.12 S TOBRAMYCIN <=1 S TRIMETHOPRIM/SULFAMETHOXAZOLE <=20 S PHYSICAL EXAMINATION: GENERAL: Afebrile, VSS,cachexia, non-verbal HEENT: AT, NC, anicteric, edentulous, orally intubated NECK: Supple, trach midline CHEST: Equal chest rise bilaterally== Vented HEART: Pulse RRR ABDOMEN: Soft / NT EXTREMITIES: Warm, dry, muscle wasting SKIN: No rash, no diaphoresis ID ASSESSMENT 68 yo M admit with: 1. SIRS w/low grade temps, rising WBC 2. Respiratory failure due to recurrent Aspiration pneumonia * Dysphagia/peg with ongoing aspiration * 09/20/18 CXR: Similar appearance of right greater than left basilar infiltrates. Small bilateral pleural effusions unchanged. 4. Pneumoperitoneum of unclear etiology, no perforation per surgical note, status post chest tube 5. Dementia 5. Anemia with progressive thrombocytopenia 6. History of non-ST elevation AR 7. Status post cardiac arrest 8. RIJ TLC (-)MRSA Nares ABX ALLERGIES: KNDA INVASIVES: R-IJ/TLC, ETT, PEG, FC CURRENT ABX: DAY # => Levaquin #3 ID RECOMMENDATIONS/PLAN: 1. Continue on Levaquin 500mg IV daily for HCAP -> ASP PNA Enterobacter = VAP 2. Trach? . Consultation Date/Type/Reason Admit Date/Time Aug 27, 2018 at 00:03 Initial Consult Date 08/27/18 Requesting Provider: VIVIANA NOLAN MD Date/Time of Note DATE: 09/23/18 TIME: 09:21 Exam/Review of Systems Exam Vitals Vital Signs Date Temp Pulse Resp B/P (MAP) Pulse Ox O2 O2 Flow FiO2 Time Delivery Rate 09/23/18 108 16 94 35 07:24 09/23/18 97/76 (83) Mechanical 07:00 Ventilator 09/23/18 97.8 04:00 Intake and Output 09/22/18 09/22/18 09/23/18 1515:00 23:00 07:00 IntakeIntake Total 1685.50 ml 1803 ml 1852 ml OutputOutput Total 1270 ml 1365 ml 650 ml BalanceBalance 415.50 ml 438 ml 1202 ml Results Result Diagram: 09/23/18 0449 09/23/18 0449 Results 24hrs Laboratory Tests Test 09/22/18 13:49 09/22/18 18:20 09/23/18 04:49 Sodium Level 151 H 148 H Potassium Level 4.4 4.6 Chloride Level 112 H 109 Carbon Dioxide Level 32 H 32 H Anion Gap 7 7 Blood Urea Nitrogen 44 H 45 H Creatinine 0.77 0.76 Est Glomerular Filtrat Rate mL/min > 60 > 60 Glucose Level 187 202 Calcium Level 8.6 8.4 Urine Color YELLOW Urine Clarity CLEAR Urine pH 5.0 Urine Specific [place] 1.006 Urine Ketones NEGATIVE Urine Nitrite NEGATIVE Urine Bilirubin NEGATIVE Urine Urobilinogen NEGATIVE Urine Leukocyte Esterase NEGATIVE Urine Hemoglobin NEGATIVE Urine Osmolality 284 Urine Random Creatinine < 12.40 L Urine Random Sodium 27 L Urine Glucose 3+ H Urine Total Protein 34.0 H White Blood Count 2.0 L Red Blood Count 2.94 L Hemoglobin 8.3 L Hematocrit 27.7 L Mean Corpuscular Volume 94.2 Mean Corpuscular Hemoglobin 28.2 L Mean Corpuscular Hemoglobin Concent 30.0 L Red Cell Distribution Width 17.1 H Platelet Count 38 L Mean Platelet Volume 12.0 H Immature Granulocytes % 0.000 L Neutrophils % Lymphocytes % Monocytes % Eosinophils % Basophils % Nucleated Red Blood Cells % 0.0 Immature Granulocytes # 0.000 Neutrophils # Lymphocytes # Monocytes # Eosinophils # Basophils # Nucleated Red Blood Cells # Phosphorus Level 2.3 L Magnesium Level 2.5 Medications Medication Current Medications Ondansetron HCl (Zofran Inj) 4 mg Q6H PRN IV NAUSEA AND/OR VOMITING Last administered on 09/06/18 18:46; Admin Dose 4 MG; Start 08/26/18 at 23:30 Acetaminophen (Tylenol Supp) 650 mg Q4H PRN [place] PAIN LEVEL 1-3 OR FEVER; Start 08/26/18 at 23:30 Aspirin (Aspirin) 81 mg DAILY PO Last administered on 09/23/18 08:45; Admin Dose 81 MG; Start 08/29/18 at 09:00 Famotidine (Pepcid) 20 mg Q12 PO Last administered on 09/23/18 08:44; Admin Dose 20 MG; Start 08/29/18 at 21:00 Zolpidem Tartrate (Ambien) 5 mg HS PRN PO INSOMNIA Last administered on 09/10/18 20:31; Admin Dose 5 MG; Start 09/01/18 at 00:00 Guaifenesin/ Dextromethorphan (Robitussin Dm Liquid Cup) 5 ml Q6H PRN PO COUGH Last administered on 09/15/18 05:16; Admin Dose 5 ML; Start 09/01/18 at 20:00 Morphine Sulfate (morphine) 6 mg Q4H PRN PO SEVERE PAIN LEVEL 7-10 Last ad ministered on 09/21/18 08:35; Admin Dose 6 MG; Start 09/04/18 at 21:30 Albuterol/ Ipratropium (Duoneb) 3 ml Q3H RESP THERAPY PRN HHN SHORTNESS OF BREATH Last administered on 09/12/18 18:47; Admin Dose 3 ML; Start 09/05/18 at 20:00 Methylprednisolone Sodium Succinate (Solu-Medrol) 40 mg Q6 IV Last administered on 09/23/18 05:11; Admin Dose 40 MG; Start 09/07/18 at 12:00 Alteplase, Recombinant (Cathflo (Activase)) 2 mg MAY REPEAT X1 PRN CATHETER IF CATHETER REMAINS OCCULUDED; Start 09/07/18 at 11:00 Lorazepam (Ativan) 1 mg Q6H PRN IV PSYCHOSIS Last administered on 09/20/18 02:58; Admin Dose 1 MG; Start 09/12/18 at 02:00 Haloperidol (Haldol) 2 mg PRN PRN IM AGITATION Last administered on 09/17/18 00:44; Admin Dose 2 MG; Start 09/13/18 at 06:30 Risperidone (Risperdal) 2 mg BID PO Last administered on 09/23/18 08:45; Admin Dose 2 MG; Start 09/14/18 at 21:00 Divalproex Sodium (Depakote Sprinkle) 250 mg Q8H PO Last administered on 09/23/18 05:11; Admin Dose 250 MG; Start 09/15/18 at 21:00 Propofol 100 ml @ 1.875 mls/ hr Q12H IV Last administered on 09/20/18 01:14; Admin Dose 7.5 MLS/HR; Start 09/18/18 at 15:30 Ascorbic Acid (Vitamin C) 500 mg DAILY GTB Last administered on 09/23/18 08:45; Admin Dose 500 MG; Start 09/20/18 at 10:30 Phenylephrine HCl 80 mg/Dextrose 250 ml @ 18.75 mls/ hr TITRATE IV Last administered on 09/21/18 21:39; Admin Dose 7.5 MLS/HR; Start 09/21/18 at 01:00 Albuterol (Ventolin Hfa) 4 puff Q6H RESP THERAPY INH Last administered on 09/23/18 09:19; Admin Dose 4 PUFF; Start 09/21/18 at 14:00 Ipratropium [place] (Atrovent Hfa) 4 puff Q6H RESP THERAPY INH Last administered on 09/23/18 09:19; Admin Dose 4 PUFF; Start 09/21/18 at 14:00 Levofloxacin/ Dextrose 100 ml @ 100 mls/hr Q24H IVPB Last administered on 09/22/18 13:40; Admin Dose 100 MLS/HR; Start 09/21/18 at 12:00 Desmopressin Acetate (Ddavp) 2 mcg BID IV Last administered on 09/23/18 08:45; Admin Dose 2 MCG; Start 09/22/18 at 09:00 Sodium Chloride 1,000 ml @ 100 mls/hr Q10H IV Last administered on 09/23/18at 07:19; Admin Dose 100 MLS/HR; Start 09/22/18 at 07:30 Midazolam HCl 50 ml @ 1 mls/hr TITRATE IV Last administered on 09/22/18at 23:49; Admin Dose 5 MLS/HR; Start 09/22/18 at 10:00 Hydrochlorothiazide (Hydrochlorothiazide) 25 mg DAILY GTB ; Start 09/23/18 at 09:00 NEIL BRADEN NP Sep 23, 2018 09:23
--- NOTE | 2018-09-23 11:17 | CONS ---
Consult Date/Type/Reason Admit Date/Time Aug 27, 2018 at 00:03 Initial Consult Date 08/27/18 Type of Consult Pulmonary Requesting Provider: VIVIANA NOLAN MD Date/Time of Note DATE: 09/23/18 TIME: 11:13 Subjective Patient is failed multiple weaning trials. Agonal respiration of sedation. Moderate secretions. Objective Vital Signs Date Temp Pulse Resp B/P (MAP) Pulse Ox O2 O2 Flow FiO2 Time Delivery Rate 09/23/18 105 19 93/68 (76) 96 10:00 09/23/18 35 09:15 09/23/18 Mechanical 09:00 Ventilator 09/23/18 99.0 08:00 Intake and Output 09/22/18 09/22/18 09/23/18 1515:00 23:00 07:00 IntakeIntake Total 1685.50 ml 1803 ml 1912 ml OutputOutput Total 1270 ml 1365 ml 740 ml BalanceBalance 415.50 ml 438 ml 1172 ml Exam GENERAL: Frail elderly gentleman, on mechanical ventilation orally intubated VITAL SIGNS: per chart NECK: Supple. No JVD or lymphadenopathy. CARDIAC EXAM: S1, S2. No added sounds or murmurs. CHEST: Diminished air entry bilaterally ABDOMEN: Soft, nontender. No guarding or rebound. EXTREMITIES: No cyanosis, clubbing or edema. NEUROLOGIC: Generalized weakness. Vent Setting Ventilator Support Mode: AC, VC plus Fraction of Inspired Oxygen pe: 35 Positive End Expiratory Pressu: 5.0 Results/Medications Result Diagram: 09/23/18 0449 09/23/18 044 Results 24 hrs Laboratory Tests Test 09/22/18 13:49 09/22/18 18:20 09/23/18 04:49 Sodium Level 151 H 148 H Potassium Level 4.4 4.6 Chloride Level 112 H 109 Carbon Dioxide Level 32 H 32 H Anion Gap 7 7 Blood Urea Nitrogen 44 H 45 H Creatinine 0.77 0.76 Est Glomerular Filtrat Rate mL/min > 60 > 60 Glucose Level 187 202 Calcium Level 8.6 8.4 Urine Color YELLOW Urine Clarity CLEAR Urine pH 5.0 Urine Specific [place] 1.006 Urine Ketones NEGATIVE Urine Nitrite NEGATIVE Urine Bilirubin NEGATIVE Urine Urobilinogen NEGATIVE Urine Leukocyte Esterase NEGATIVE Urine Hemoglobin NEGATIVE Urine Osmolality 284 Urine Random Creatinine < 12.40 L Urine Random Sodium 27 L Urine Glucose 3+ H Urine Total Protein 34.0 H White Blood Count 2.0 L Red Blood Count 2.94 L Hemoglobin 8.3 L Hematocrit 27.7 L Mean Corpuscular Volume 94.2 Mean Corpuscular Hemoglobin 28.2 L Mean Corpuscular Hemoglobin Concent 30.0 L Red Cell Distribution Width 17.1 H Platelet Count 38 L Mean Platelet Volume 12.0 H Immature Granulocytes % 0.000 L Neutrophils % Lymphocytes % Monocytes % Eosinophils % Basophils % Nucleated Red Blood Cells % 0.0 Immature Granulocytes # 0.000 Neutrophils # Lymphocytes # Monocytes # Eosinophils # Basophils # Nucleated Red Blood Cells # Phosphorus Level 2.3 L Magnesium Level 2.5 Medications Current Medications Ondansetron HCl (Zofran Inj) 4 mg Q6H PRN IV NAUSEA AND/OR VOMITING Last administered on 09/06/18 18:46; Admin Dose 4 MG; Start 08/26/18 at 23:30 Acetaminophen (Tylenol Supp) 650 mg Q4H PRN [place] PAIN LEVEL 1-3 OR FEVER; Start 08/26/18 at 23:30 Aspirin (Aspirin) 81 mg DAILY PO Last administered on 09/23/18 08:45; Admin Dose 81 MG; Start 08/29/18 at 09:00 Famotidine (Pepcid) 20 mg Q12 PO Last administered on 09/23/18 08:44; Admin Dose 20 MG; Start 08/29/18 at 21:00 Zolpidem Tartrate (Ambien) 5 mg HS PRN PO INSOMNIA Last administered on 09/10/18 20:31; Admin Dose 5 MG; Start 09/01/18 at 00:00 Guaifenesin/ Dextromethorphan (Robitussin Dm Liquid Cup) 5 ml Q6H PRN PO COUGH Last administered on 09/15/18 05:16; Admin Dose 5 ML; Start 09/01/18 at 20:00 Morphine Sulfate (morphine) 6 mg Q4H PRN PO SEVERE PAIN LEVEL 7-10 Last administered on 09/21/18 08:35; Admin Dose 6 MG; Start 09/04/18 at 21:30 Albuterol/ Ipratropium (Duoneb) 3 ml Q3H RESP THERAPY PRN HHN SHORTNESS OF BREATH Last administered on 09/12/18 18:47; Admin Dose 3 ML; Start 09/05/18 at 2 0:00 Methylprednisolone Sodium Succinate (Solu-Medrol) 40 mg Q6 IV Last administered on 09/23/18 05:11; Admin Dose 40 MG; Start 09/07/18 at 12:00 Alteplase, Recombinant (Cathflo (Activase)) 2 mg MAY REPEAT X1 PRN CATHETER IF CATHETER REMAINS OCCULUDED; Start 09/07/18 at 11:00 Lorazepam (Ativan) 1 mg Q6H PRN IV PSYCHOSIS Last administered on 09/20/18at 02:58; Admin Dose 1 MG; Start 09/12/18 at 02:00 Haloperidol (Haldol) 2 mg PRN PRN IM AGITATION Last administered on 09/17/18 00:44; Admin Dose 2 MG; Start 09/13/18 at 06:30 Risperidone (Risperdal) 2 mg BID PO Last administered on 09/23/18 08:45; Admin Dose 2 MG; Start 09/14/18 at 21:00 Divalproex Sodium (Depakote Sprinkle) 250 mg Q8H PO Last administered on 09/23/18 05:11; Admin Dose 250 MG; Start 09/15/18 at 21:00 Propofol 100 ml @ 1.875 mls/ hr Q12H IV Last administered on 09/20/18 01:14; Admin Dose 7.5 MLS/HR; Start 09/18/18 at 15:30 Ascorbic Acid (Vitamin C) 500 mg DAILY GTB Last administered on 09/23/18 08:45; Admin Dose 500 MG; Start 09/20/18 at 10:30 Phenylephrine HCl 80 mg/Dextrose 250 ml @ 18.75 mls/ hr TITRATE IV Last administered on 09/21/18 21:39; Admin Dose 7.5 MLS/HR; Start 09/21/18 at 01:00 Albuterol (Ventolin Hfa) 4 puff Q6H RESP THERAPY INH Last administered on 09/23/18 09:19; Admin Dose 4 PUFF; Start 09/21/18 at 14:00 Ipratropium [place] (Atrovent Hfa) 4 puff Q6H RESP THERAPY INH Last administered on 09/23/18 09:19; Admin Dose 4 PUFF; Start 09/21/18 at 14:00 Levofloxacin/ Dextrose 100 ml @ 100 mls/hr Q24H IVPB Last administered on 09/22/18at 13:40; Admin Dose 100 MLS/HR; Start 09/21/18 at 12:00 Desmopressin Acetate (Ddavp) 2 mcg BID IV Last administered on 09/23/18at 08:45; Admin Dose 2 MCG; Start 09/22/18 at 09:00 Sodium Chloride 1,000 ml @ 100 mls/hr Q10H IV Last administered on 09/23/18at 07:19; Admin Dose 100 MLS/HR; Start 09/22/18 at 07:30 Midazolam HCl 50 ml @ 1 mls/hr TITRATE IV Last administered on 09/22/18at 23:49; Admin Dose 5 MLS/HR; Start 09/22/18 at 10:00 Hydrochlorothiazide (Hydrochlorothiazide) 25 mg DAILY GTB ; Start 09/23/18 at 09:00 Assessment/Plan Hospital Course (Demo Recall) iMP: 1. Acute on chronic hypoxic and hypercapnic respiratory failure--worse overnight with increased mucus plugging. Currently not able to liberate from mechanical ventilation 3. Encephalopathy toxic metabolic resolving 4. Advanced COPD 5. Hypernatremia likely free water deficit 6. Thrombocytopenia 7. Anemia RECS: 1. Failed multiple weaning trials. Continue mechanical ventilation. Patient has an advanced directive that states he does not want tracheostomy. D POA is at bedside today. We discussed goals of care and long-term mechanical ventilation is not consistent with patient's wishes. In that regard I have requested vitas hospice eval as this is the patient's third intubation during this admission and he has consistently failed weaning trials. We will attempt one for the weaning trial with the hope of safe extubation and no reintubation if possible. 2. Continue tube feeding as tolerated 3. Pulmonary toilet 4. Increase free water per nephrology Critical care time 40 minutes. Vitas eval. Code status DNR KHUSHI SCHWARZ MD, [facility] Sep 23, 2018 11:17
[2018-09-23] MEDS: LEVOFLOXACIN 500MG/D5W (PMX) 100 ML IVPB SCH (11:30)
--- NOTE | 2018-09-23 14:05 | CONS ---
Assessment/Plan Assessment/Plan Hospital Course (Demo Recall) IMP: 1.Hypotension-Now improved and off saundra.. NL EF by echo this admit 2.resp failure s/p intubation 3.cardiac arrest 4.pneumoperitoneum-resolved 5.Positive troponin-now trended neg 6.renal failure-improved 7.Leukocytosis 8. anemia 9, Thrombocytopenia-ongoing some worsening 10.Resp failure-hypercapnic s/p intubation. s/p extubation but now transferred back to ICU for increasing resp distress 11.PNA-by cxr 12.PLeual effusion 14. dysphagia s/p G tube Recc: -IN ICU -Continue asa -continue steroids/bronchodilators -Continue risperdal -follow MS closely -Follow volume status clsoely -Follow resp status closely -Follow BP closely and would consider d/c HCTZ -Now DNR Consultation Date/Type/Reason Admit Date/Time Aug 27, 2018 at 00:03 Initial Consult Date 08/27/18 Type of Consult Cardiology Reason for Consultation cardiac arrest Requesting Provider: VIVIANA NOLAN MD Date/Time of Note DATE: 09/23/18 TIME: 14:02 Exam/Review of Systems Vital Signs Vitals Vital Signs Date Temp Pulse Resp B/P (MAP) Pulse Ox O2 O2 Flow FiO2 Time Delivery Rate 09/23/18 112 20 95 40 13:27 09/23/18 92/62 (72) Mechanical 12:00 Ventilator 09/23/18 99.0 08:00 Intake and Output 09/22/18 09/22/18 09/23/18 1515:00 23:00 07:00 IntakeIntake Total 1685.50 ml 1803 ml 1912 ml OutputOutput Total 1270 ml 1365 ml 740 ml BalanceBalance 415.50 ml 438 ml 1172 ml Exam Exam Review of Systems: CONSTITUTIONAL: No fevers, chills. PULMONARY: intubated CARDIOVASCULAR: No chest pain/palpitations GASTROINTESTINAL: No nausea/vomiting. GENITOURINARY: No hematuria/dysuria. MUSCULOSKELETAL: No myagias/arthalgias. PSYCHIATRIC: The patient denies depression. NEUROLOGIC: No weakness Constitutional: other (intubated) Psych: no complaints Head: normocephalic ENMT: mucosa pink and moist, intubated Neck: supple, jvd (9 cm water) Respiratory: diminished breath sounds Cardiovascular: regular rate and rhythm (tachycardic) Gastrointestinal: soft, non-tender Musculoskeletal: muscle tone (normal) Extremities: edema (none) Labs Result Diagram: 09/23/1844809/23/18448 Results 24hrs Laboratory Tests Test 09/22/18 18:20 09/23/18 04:49 Urine Color YELLOW Urine Clarity CLEAR Urine pH 5.0 Urine Specific [place] 1.006 Urine Ketones NEGATIVE Urine Nitrite NEGATIVE Urine Bilirubin NEGATIVE Urine Urobilinogen NEGATIVE Urine Leukocyte Esterase NEGATIVE Urine Hemoglobin NEGATIVE Urine Osmolality 284 Urine Random Creatinine < 12.40 L Urine Random Sodium 27 L Urine Glucose 3+ H Urine Total Protein 34.0 H White Blood Count 2.0 L Red Blood Count 2.94 L Hemoglobin 8.3 L Hematocrit 27.7 L Mean Corpuscular Volume 94.2 Mean Corpuscular Hemoglobin 28.2 L Mean Corpuscular Hemoglobin Concent 30.0 L Red Cell Distribution Width 17.1 H Platelet Count 38 L Mean Platelet Volume 12.0 H Immature Granulocytes % 0.000 L Neutrophils % Segmented Neutrophils % (Manual) 71 Band Neutrophils % (Manual) 14 H Lymphocytes % Lymphocytes % (Manual) 10 L Monocytes % Monocytes % (Manual) 3 Eosinophils % Eosinophils % (Manual) 1 Basophils % Basophils % (Manual) 1 Nucleated Red Blood Cells % 1 H Immature Granulocytes # 0.000 Neutrophils # Neutrophils # (Manual) 1.4 L Band Neutrophils # 0.2 Lymphocytes (Manual) 0.2 L Lymphocytes # Monocytes # Monocytes # (Manual) 0.0 L Eosinophils # Basophils # Basophils # (Manual) 0.0 Nucleated Red Blood Cells # Pathologist Review (Hematology) YES Platelet Estimate SIG DECREASED Giant Platelets 1 H Polychromasia 1+ Poikilocytosis 1+ Anisocytosis 1+ Microcytosis 1+ Ovalocytes 1+ Sodium Level 148 H Potassium Level 4.6 Chloride Level 109 Carbon Dioxide Level 32 H Anion Gap 7 Blood Urea Nitrogen 45 H Creatinine 0.76 Est Glomerular Filtrat Rate mL/min > 60 Glucose Level 202 Calcium Level 8.4 Phosphorus Level 2.3 L Magnesium Level 2.5 Medications Medications Current Medications Ondansetron HCl (Zofran Inj) 4 mg Q6H PRN IV NAUSEA AND/OR VOMITING Last administered on 09/06/18at 18:46; Admin Dose 4 MG; Start 08/26/18 at 23:30 Acetaminophen (Tylenol Supp) [address] PAIN LEVEL 1-3 OR FEVER; Start 08/26/18 at 23:30 Aspirin (Aspirin) 81 mg DAILY PO Last administered on 09/23/18 08:45; Admin Dose 81 MG; Start 08/29/18 at 09:00 Famotidine (Pepcid) 20 mg Q12 PO Last administered on 09/23/18 08:44; Admin Dose 20 MG; Start 08/29/18 at 21:00 Zolpidem Tartrate (Ambien) 5 mg HS PRN PO INSOMNIA Last administered on 09/10/18 20:31; Admin Dose 5 MG; Start 09/01/18 at 00:00 Guaifenesin/ Dextromethorphan (Robitussin Dm Liquid Cup) 5 ml Q6H PRN PO COUGH Last administered on 09/15/18 05:16; Admin Dose 5 ML; Start 09/01/18 at 20:00 Morphine Sulfate (morphine) 6 mg Q4H PRN PO SEVERE PAIN LEVEL 7-10 Last administered on 09/21/18 08:35; Admin Dose 6 MG; Start 09/04/18 at 21:30 Albuterol/ Ipratropium (Duoneb) 3 ml Q3H RESP THERAPY PRN HHN SHORTNESS OF BREATH Last administered on 09/12/18 18:47; Admin Dose 3 ML; Start 09/05/18 at 20:00 Methylprednisolone Sodium Succinate (Solu-Medrol) 40 mg Q6 IV Last administered on 09/23/18 11:30; Admin Dose 40 MG; Start 09/07/18 at 12:00 Alteplase, Recombinant (Cathflo (Activase)) 2 mg MAY REPEAT X1 PRN CATHETER IF CATHETER REMAINS OCCULUDED; Start 09/07/18 at 11:00 Lorazepam (Ativan) 1 mg Q6H PRN IV PSYCHOSIS Last administered on 09/20/18 02:58; Admin Dose 1 MG; Start 09/12/18 at 02:00 Haloperidol (Haldol) 2 mg PRN PRN IM AGITATION Last administered on 09/17/18 00:44; Admin Dose 2 MG; Start 09/13/18 at 06:30 Risperidone (Risperdal) 2 mg BID PO Last administered on 09/23/18 08:45; Admin Dose 2 MG; Start 09/14/18 at 21:00 Divalproex Sodium (Depakote Sprinkle) 250 mg Q8H PO Last administered on 09/23/18 12:04; Admin Dose 250 MG; Start 09/15/18 at 21:00 Propofol 100 ml @ 1.875 mls/ hr Q12H IV Last administered on 09/20/18 01:14; Admin Dose 7.5 MLS/HR; Start 09/18/18 at 15:30 Ascorbic Acid (Vitamin C) 500 mg DAILY GTB Last administered on 09/23/18 08:45; Admin Dose 500 MG; Start 09/20/18 at 10:30 Phenylephrine HCl 80 mg/Dextrose 250 ml @ 18.75 mls/ hr TITRATE IV Last administered on 09/21/18 21:39; Admin Dose 7.5 MLS/HR; Start 09/21/18 at 01:00 Albuterol (Ventolin Hfa) 4 puff Q6H RESP THERAPY INH Last administered on 09/23/18 13:45; Admin Dose 4 PUFF; Start 09/21/18 at 14:00 Ipratropium [place] (Atrovent Hfa) 4 puff Q6H RESP THERAPY INH Last adm inistered on 09/23/18 13:45; Admin Dose 4 PUFF; Start 09/21/18 at 14:00 Levofloxacin/ Dextrose 100 ml @ 100 mls/hr Q24H IVPB Last administered on 09/23/18 11:30; Admin Dose 100 MLS/HR; Start 09/21/18 at 12:00 Desmopressin Acetate (Ddavp) 2 mcg BID IV Last administered on 09/23/18 08:45; Admin Dose 2 MCG; Start 09/22/18 at 09:00 Sodium Chloride 1,000 ml @ 100 mls/hr Q10H IV Last administered on 09/23/18 07:19; Admin Dose 100 MLS/HR; Start 09/22/18 at 07:30 Midazolam HCl 50 ml @ 1 mls/hr TITRATE IV Last administered on 09/22/18 23:49; Admin Dose 5 MLS/HR; Start 09/22/18 at 10:00 Hydrochlorothiazide (Hydrochlorothiazide) 25 mg DAILY GTB ; Start 09/23/18 at 09:00 MITCHEL DESOUZA Sep 23, 2018 14:05
--- NOTE | 2018-09-23 16:38 | PN ---
Date/Time of Note Date/Time of Note DATE: 09/23/18 TIME: 16:30 Assessment/Plan VTE Prophylaxis Risk score (from [facility] [place]0 risk: 14 SCD applied (from [facility] [place]): Yes Pharmacological prophylaxis: NA/contraindicated Pharm contraindication: thrombocytopenia Lines/Catheters IV Catheter Type (from [facility] Central Line Central line still needed: Yes Urinary Cath still in place: Yes Reason Cath still needed: urinary retention Assessment/Plan Hospital Course Patient continues on ventilatory support, failed CPAP trial, sedated on Versed drip. Dr. Mejias is met with PDOF for the patient, patient is made DNR. patient is undergoing evaluation for possible hospice. Assessment/Plan -Hypoxic respiratory failure requiring mechanical ventilation, extubated and now intubated for elective PEG placement. Dr. Mejias is following in pulmonology consultation. -Dysphagia. S/p G-tube placement by Dr. Munguia. -Sepsis with shock, resolving. Dr. Sutton is following in infection disease consultation. -Status post cardiac arrest. Dr. Hernández is following in cardiology consultation. -Left-sided pneumothorax, status post left side chest tube placement, s/p self d/c CT. -S/p pneumoperitoneum most likely due to cardiac arrest, resolved. Dr. Rivas is following in general surgery consultation. -Left axillary and brachial DVT, LUE swelling subsided, was on Lovenox which is currently held due to thrombocytopenia -Left lower lobe pneumonia -Severe emphysema -JEREMÍAS with possible chronic kidney disease. Dr Arvizu is following in nephrology consultation. -Hypernatremia, continue free water via G-tube, IV fluids with dextrose. -Schizoaffective disorder depressed type. Psychiatric consult is appreciated, continue Risperdal Depakote -DNR status Critical care time spent is 35 minutes. Further recommendations based on clinical course. Plan of care discussed with Dr. Juarez. Result Diagram: 09/23/18 0449 09/23/18 1413 Results 24hrs Laboratory Tests Test 09/22/18 18:20 09/23/18 04:49 09/23/18 14:13 Urine Color YELLOW Urine Clarity CLEAR Urine pH 5.0 Urine Specific [place] 1.006 Urine Ketones NEGATIVE Urine Nitrite NEGATIVE Urine Bilirubin NEGATIVE Urine Urobilinogen NEGATIVE Urine Leukocyte Esterase NEGATIVE Urine Hemoglobin NEGATIVE Urine Osmolality 284 Urine Random Creatinine < 12.40 L Urine Random Sodium 27 L Urine Glucose 3+ H Urine Total Protein 34.0 H White Blood Count 2.0 L Red Blood Count 2.94 L Hemoglobin 8.3 L Hematocrit 27.7 L Mean Corpuscular Volume 94.2 Mean Corpuscular Hemoglobin 28.2 L Mean Corpuscular 30.0 L Hemoglobin Concent Red Cell Distribution Width 17.1 H Platelet Count 38 L Mean Platelet Volume 12.0 H Immature Granulocytes % 0.000 L Neutrophils % Segmented Neutrophils % (Manual) 71 Band Neutrophils % (Manual) 14 H Lymphocytes % Lymphocytes % (Manual) 10 L Monocytes % Monocytes % (Manual) 3 Eosinophils % Eosinophils % (Manual) 1 Basophils % Basophils % (Manual) 1 Nucleated Red Blood Cells % 1 H Immature Granulocytes # 0.000 Neutrophils # Neutrophils # (Manual) 1.4 L Band Neutrophils # 0.2 Lymphocytes (Manual) 0.2 L Lymphocytes # Monocytes # Monocytes # (Manual) 0.0 L Eosinophils # Basophils # Basophils # (Manual) 0.0 Nucleated Red Blood Cells # Pathologist Review (Hematology) YES Platelet Estimate SIG DECREASED Giant Platelets 1 H Polychromasia 1+ Poikilocytosis 1+ Anisocytosis 1+ Microcytosis 1+ Ovalocytes 1+ Sodium Level 148 H 145 H Potassium Level 4.6 5.0 Chloride Level 109 106 Carbon Dioxide Level 32 H 32 H Anion Gap 7 7 Blood Urea Nitrogen 45 H 55 H Creatinine 0.76 0.86 Est Glomerular Filtrat > 60 > 60 Rate mL/min Glucose Level 202 229 H Calcium Level 8.4 8.3 L Phosphorus Level 2.3 L Magnesium Level 2.5 Subjective 24 Hr Interval Summary Free Text/Dictation Constitutional: sedated Respiratory: diminished breath sounds Cardiovascular: regular rate and rhythm Gastrointestinal: soft, non-tender Musculoskeletal: nl extremities to inspection Extremities: normal pulses Neurological: nl mental status Exam/Review of Systems Exam Vitals Vital Signs Date Temp Pulse Resp B/P (MAP) Pulse Ox O2 O2 Flow FiO2 Time Delivery Rate 09/23/18 113 16:00 09/23/18 98.5 20 97/70 (79) 98 Mechanical 16:00 Ventilator 09/23/18 40 15:40 Intake and Output 09/22/18 09/22/18 09/23/18 1515:00 23:00 07:00 IntakeIntake Total 1685.50 ml 1803 ml 1912 ml OutputOutput Total 1270 ml 1365 ml 740 ml BalanceBalance 415.50 ml 438 ml 1172 ml Results Results 24hrs Laboratory Tests Test 09/22/18 18:20 09/23/18 04:49 09/23/18 14:13 Urine Color YELLOW Urine Clarity CLEAR Urine pH 5.0 Urine Specific [place] 1.006 Urine Ketones NEGATIVE Urine Nitrite NEGATIVE Urine Bilirubin NEGATIVE Urine Urobilinogen NEGATIVE Urine Leukocyte Esterase NEGATIVE Urine Hemoglobin NEGATIVE Urine Osmolality 284 Urine Random Creatinine < 12.40 L Urine Random Sodium 27 L Urine Glucose 3+ H Urine Total Protein 34.0 H White Blood Count 2.0 L Red Blood Count 2.94 L Hemoglobin 8.3 L Hematocrit 27.7 L Mean Corpuscular Volume 94.2 Mean Corpuscular Hemoglobin 28.2 L Mean Corpuscular 30.0 L Hemoglobin Concent Red Cell Distribution Width 17.1 H Platelet Count 38 L Mean Platelet Volume 12.0 H Immature Granulocytes % 0.000 L Neutrophils % Segmented Neutrophils % (Manual) 71 Band Neutrophils % (Manual) 14 H Lymphocytes % Lymphocytes % (Manual) 10 L Monocytes % Monocytes % (Manual) 3 Eosinophils % Eosinophils % (Manual) 1 Basophils % Basophils % (Manual) 1 Nucleated Red Blood Cells % 1 H Immature Granulocytes # 0.000 Neutrophils # Neutrophils # (Manual) 1.4 L Band Neutrophils # 0.2 Lymphocytes (Manual) 0.2 L Lymphocytes # Monocytes # Monocytes # (Manual) 0.0 L Eosinophils # Basophils # Basophils # (Manual) 0.0 Nucleated Red Blood Cells # Pathologist Review (Hematology) YES Platelet Estimate SIG DECREASED Giant Platelets 1 H Polychromasia 1+ Poikilocytosis 1+ Anisocytosis 1+ Microcytosis 1+ Ovalocytes 1+ Sodium Level 148 H 145 H Potassium Level 4.6 5.0 Chloride Level 109 106 Carbon Dioxide Level 32 H 32 H Anion Gap 7 7 Blood Urea Nitrogen 45 H 55 H Creatinine 0.76 0.86 Est Glomerular Filtrat > 60 > 60 Rate mL/min Glucose Level 202 229 H Calcium Level 8.4 8.3 L Phosphorus Level 2.3 L Magnesium Level 2.5 Medications Medication Current Medications Ondansetron HCl (Zofran Inj) 4 mg Q6H PRN IV NAUSEA AND/OR VOMITING Last administered on 09/06/18at 18:46; Admin Dose 4 MG; Start 08/26/18 at 23:30 Acetaminophen (Tylenol Supp) 650 mg Q4H PRN [place] PAIN LEVEL 1-3 OR FEVER; Start 08/26/18 at 23:30 Aspirin (Aspirin) 81 mg DAILY PO Last administered on 09/23/18 08:45; Admin Dose 81 MG; Start 08/29/18 at 09:00 Famotidine (Pepcid) 20 mg Q12 PO Last administered on 09/23/18 08:44; Admin Dose 20 MG; Start 08/29/18 at 21:00 Zolpidem Tartrate (Ambien) 5 mg HS PRN PO INSOMNIA Last administered on 20:31; Admin Dose 5 MG; Start 09/01/18 at 00:00 Guaifenesin/ Dextromethorphan (Robitussin Dm Liquid Cup) 5 ml Q6H PRN PO COUGH Last administered on 09/15/18 05:16; Admin Dose 5 ML; Start 09/01/18 at 20:00 Morphine Sulfate (morphine) 6 mg Q4H PRN PO SEVERE PAIN LEVEL 7-10 Last administered on 09/21/18 08:35; Admin Dose 6 MG; Start 09/04/18 at 21:30 Albuterol/ Ipratropium (Duoneb) 3 ml Q3H RESP THERAPY PRN HHN SHORTNESS OF BREATH Last administered on 09/12/18 18:47; Admin Dose 3 ML; Start 09/05/18 at 20:00 Methylprednisolone Sodium Succinate (Solu-Medrol) 40 mg Q6 IV Last administered on 09/23/18 11:30; Admin Dose 40 MG; Start 09/07/18 at 12:00 Alteplase, Recombinant (Cathflo (Activase)) 2 mg MAY REPEAT X1 PRN CATHETER IF CATHETER REMAINS OCCULUDED; Start 09/07/18 at 11:00 Lorazepam (Ativan) 1 mg Q6H PRN IV PSYCHOSIS Last administered on 09/20/18 02:58; Admin Dose 1 MG; Start 09/12/18 at 02:00 Haloperidol (Haldol) 2 mg PRN PRN IM AGITATION Last administered on 09/17/18 00:44; Admin Dose 2 MG; Start 09/13/18 at 06:30 Risperidone (Risperdal) 2 mg BID PO Last administered on 09/23/18 08:45; Admin Dose 2 MG; Start 09/14/18 at 21:00 Divalproex Sodium (Depakote Sprinkle) 250 mg Q8H PO Last administered on 09/23/18 12:04; Admin Dose 250 MG; Start 09/15/18 at 21:00 Propofol 100 ml @ 1.875 mls/ hr Q12H IV Last administered on 09/20/18 01:14; Admin Dose 7.5 MLS/HR; Start 09/18/18 at 15:30 Ascorbic Acid (Vitamin C) 500 mg DAILY GTB Last administered on 09/23/18 08:4 5; Admin Dose 500 MG; Start 09/20/18 at 10:30 Phenylephrine HCl 80 mg/Dextrose 250 ml @ 18.75 mls/ hr TITRATE IV Last administered on 09/21/18 21:39; Admin Dose 7.5 MLS/HR; Start 09/21/18 at 01:00 Albuterol (Ventolin Hfa) 4 puff Q6H RESP THERAPY INH Last administered on 09/23/18 13:45; Admin Dose 4 PUFF; Start 09/21/18 at 14:00 Ipratropium [place] (Atrovent Hfa) 4 puff Q6H RESP THERAPY INH Last administered on 09/23/18 13:45; Admin Dose 4 PUFF; Start 09/21/18 at 14:00 Levofloxacin/ Dextrose 100 ml @ 100 mls/hr Q24H IVPB Last administered on 09/23/18 11:30; Admin Dose 100 MLS/HR; Start 09/21/18 at 12:00 Desmopressin Acetate (Ddavp) 2 mcg BID IV Last administered on 09/23/18 08:45; Admin Dose 2 MCG; Start 09/22/18 at 09:00 Sodium Chloride 1,000 ml @ 100 mls/hr Q10H IV Last administered on 09/23/18 07:19; Admin Dose 100 MLS/HR; Start 09/22/18 at 07:30 Midazolam HCl 50 ml @ 1 mls/hr TITRATE IV Last administered on 09/22/18 23:49; Admin Dose 5 MLS/HR; Start 09/22/18 at 10:00 Hydrochlorothiazide (Hydrochlorothiazide) 25 mg DAILY GTB ; Start 09/23/18 at 09:00 HERMES HARRIS Sep 23, 2018 16:38
[2018-09-23] MEDS: MIDAZOLAM (DRIP) 50 mg/50 mL 50 ML IV SCH (17:11)
[2018-09-24] VITALS (29 sets, daily range): BP systolic 80–111; BP diastolic 47–77; PULSE 79–101; RESP 16–36
[2018-09-24] MEDS: IPRATROPIUM (HFA) 12.9 GM INHALER INH SCH ×2 (01:54→08:32)
[2018-09-24] MEDS: ALBUTEROL HFA 8 GM INHALER INH SCH ×2 (01:54→08:32)
[2018-09-24] MEDS: PROPOFOL 100 ML IV SCH (03:30)
[2018-09-24] MEDS: SOD CHLORIDE 0.45% 1,000 ML IV SCH (03:49)
[2018-09-24] MEDS: METHYLPREDNISOLONE 40 MG INJ IV SCH ×2 (05:10→11:08)
[2018-09-24] MEDS: DIVALPROEX SPRINKLE 125 MG CAP PO SCH ×2 (05:10→12:03)
--- NOTE | 2018-09-24 08:00 | PN ---
DATE: 09/24/2018 SUBJECTIVE: The patient is seriously ill on full ventilatory support. No other acute events noted. No hemoptysis, hematemesis, or hematochezia. OBJECTIVE: VITAL SIGNS: Blood pressure is 93/70, respirations 18, pulse 90, temperature 97.8. HEENT: Head is normocephalic. NECK: Supple. HEART: Regular rate. LUNGS: Show diminished breath sounds at the base. ABDOMEN: Soft, nontender to palpation without rebound or guarding. EXTREMITIES: Negative for clubbing, cyanosis. Trace edema. DERMATOLOGIC: No rashes. MUSCULOSKELETAL: No joint effusion. NEUROLOGIC: No change in exam. MEDICATIONS: Reviewed. LABORATORY DATA: Shows sodium 142, potassium 5.0, BUN 16, creatinine 0.78, phosphorus 2.3, calcium 8 .0. White count 2.4, hemoglobin 7.0, platelet count is 37. ASSESSMENT AND PLAN: 1. Hypernatremia. 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 The patient was given a trial of desmopressin without any significant improvement in urine osmolarity. The patient h as since been started on hydrochlorothiazide to help increase free water absorption in the proximal t ubules. We would otherwise continue aggressive free water flushes. We will discontinue hypertonic f luids. The patient's sodium levels have been improving. We will monitor closely. 2. Nonoliguric acute kidney injury with unknown baseline creatinine. Etiology is secondary to hemod ynamics, acute tubular necrosis. Renal function is stabilized. Continue to monitor. 3. Metabolic alkalosis with respiratory compensation. Continue to monitor. 4. Anemia. Continue to monitor hemoglobin and hematocrit levels. 5. Mineral bone disorder, monitor calcium and phosphorus levels. 6. Diastolic heart failure. The patient is currently compensated. Continue to monitor. 7. Ventilator-dependent respiratory failure. Vent settings and ABG was reviewed. Continue current medical management. Continue current vent settings. Follow up with pulmonary. 8. Sepsis status post shock secondary to pneumonia. Continue medical management. Continue IV antib iotics. 9. Acute encephalopathy, etiology is toxic metabolic. 10. Pleural effusion status post thoracentesis. 11. Deep vein thrombosis. Continue medical management. 12. Status post cardiac arrest. 13. Status post pneumothorax. 14. Status post pneumoperitoneum. Please note, I spent over 30 minutes of critical care time with this patient. Dictated By: JOE BLACK DO NR/NTS Conf#: [id number] DID#: [id number] CC: VIVIANA NOLAN MD; WENDY LOVE MD; WEI SHAH NP;*EndCC*
[2018-09-24] MEDS: HYDROCHLOROTHIAZIDE 25 MG TAB GTB SCH (08:20)
[2018-09-24] MEDS: ASPIRIN 81 MG TAB PO SCH (08:20)
[2018-09-24] MEDS: FAMOTIDINE 20 MG TAB PO SCH (08:20)
[2018-09-24] MEDS: RISPERIDONE 1 MG TAB PO SCH (08:20)
[2018-09-24] MEDS: ASCORBIC ACID 500 MG TAB GTB SCH (08:20)
[2018-09-24] MEDS: BALSAM PERU/CASTOR OIL 60 GM TUBE TOP SCH (08:21)
--- NOTE | 2018-09-24 09:37 | CONS ---
Consult Date/Type/Reason Admit Date/Time Aug 27, 2018 at 00:03 Initial Consult Date 08/27/18 Type of Consultation: Pulm/CCM Requesting Provider: VIVIANA NOLAN MD Date/Time of Note DATE: 09/24/18 TIME: 09:35 Subjective NO acute events - intubated - stable, now DNR NO F/C/N/V/D + stable SOB Objective Vitals Vital Signs Date Temp Pulse Resp B/P (MAP) Pulse Ox O2 O2 Flow FiO2 Time Delivery Rate 09/24/18 93 17 99/71 (80) 100 Mechanical 09:00 Ventilator 09/24/18 98.4 08:00 09/24/18 40 08:00 Intake and Output 09/23/18 09/23/18 09/24/18 1414:59 22:59 06:59 IntakeIntake Total 2004 ml 1900 ml 1862 ml OutputOutput Total 535 ml 480 ml 795 ml BalanceBalance 1469 ml 1420 ml 1067 ml Exam General: WN/WD/NAD, AOx comfortable HEENT: Unicetric/atraumatic/EOMI (does not follow commands) NECK: JVD elevated, no thyromegaly - intubataed Lymph: no lymphadenopathy HEART: regular with no S3, II/ systolic murmur at apex LUNGS: Coarse sounds ABD: soft, NT, ND, +BS : Intact Neuro: non focal SKIN: chronic changes EXT: trace edema Results/Medications Result Diagram: 09/24/18 0812 09/24/18 0500 Results 24 hrs Laboratory Tests Test 09/23/18 14:13 09/24/18 05:00 09/24/18 08:12 Sodium Level 145 H 142 Potassium Level 5.0 5.0 Chloride Level 106 110 Carbon Dioxide Level 32 H 35 H Anion Gap 7 -3 L Blood Urea Nitrogen 55 H 68 H Creatinine 0.86 0.78 Est Glomerular Filtrat Rate mL/min > 60 > 60 Glucose Level 229 H 217 Calcium Level 8.3 L 8.0 L White Blood Count 2.4 L 2.5 L Red Blood Count 2.44 L 2.59 L Hemoglobin 7.0 L 7.2 L Hematocrit 23.0 L 24.0 L Mean Corpuscular Volume 94.3 92.7 Mean Corpuscular Hemoglobin 28.7 L 27.8 L Mean Corpuscular Hemoglobin Concent 30.4 L 30.0 L Red Cell Distribution Width 16.6 H 16.7 H Platelet Count 37 L 36 L Mean Platelet Volume 12.5 H 12.4 H Immature Granulocytes % 0.800 H 0.400 Neutrophils % 88.7 H 89.9 H Lymphocytes % 7.6 L 7.3 L Monocytes % 2.9 2.4 Eosinophils % 0.0 0.0 Basophils % 0.0 0.0 Nucleated Red Blood Cells % 0.8 H 0.0 Immature Granulocytes # 0.020 0.010 Neutrophils # 2.1 2.2 Lymphocytes # 0.2 L 0.2 L Monocytes # 0.1 L 0.1 L Eosinophils # 0.0 0.0 Basophils # 0.0 0.0 Nucleated Red Blood Cells # 0.0 0.0 Phosphorus Level 2.3 L Magnesium Level 2.6 H Home Meds Reported Medications Docusate Sodium* (Colace*) 100 Mg Capsule, 100 MG PO Q24H PRN for CONSTIPATION, #30 CAP 08/26/18 Polyethylene Glycol* (Miralax*) 17 Gm Powd.pack, 17 GM PO DAILY PRN for NEEDED, #30 PACKET 08/26/18 Acetaminophen* (Acetaminophen*) 325 Mg Tablet, 650 MG PO Q4H PRN for PAIN 1- 05/15, #30 TAB AND FEVER>101F 08/26/18 Sennosides* (Senna Lax*) 8.6 Mg Tablet, 1 TAB PO NEEDED, TAB 08/26/18 Mv,Minerals/Fa/Lycopene/Ginkgo (ONE DAILY MEN'S 50+ TABLET) 1 Each Tablet, 1 EACH PO DAILY, TAB 08/26/18 Divalproex Sodium* (Depakote*) 125 Mg Tablet.dr, 250 MG PO Q8H, #90 TAB 08/26/18 Quetiapine Fumarate* (Seroquel*) 50 Mg Tablet, 50 MG PO Q8H, TAB 08/26/18 Ipratropium-Albuterol (Ipratropium-Albuterol) 0.5-3 Mg/3 Ml Ampul.neb, 3 ML INHALATION Q4H PRN for WHEEZING AND SOB, #30 VIAL 08/26/18 Budesonide-Formoterol Fumarate* (Symbicort*) 160-4.5 Hfa.aer.ad, 2 PUFF INHALATION BID, #1 EACH 08/26/18 Medications Current Medications Ondansetron HCl (Zofran Inj) 4 mg Q6H PRN IV NAUSEA AND/OR VOMITING Last admi nistered on 09/06/18 18:46; Admin Dose 4 MG; Start 08/26/18 at 23:30 Acetaminophen (Tylenol Supp) 650 mg Q4H PRN [place] PAIN LEVEL 1-3 OR FEVER; Start 08/26/18 at 23:30 Aspirin (Aspirin) 81 mg DAILY PO Last administered on 09/24/18 08:20; Admin Dose 81 MG; Start 08/29/18 at 09:00 Famotidine (Pepcid) 20 mg Q12 PO Last administered on 09/24/18 08:20; Admin Dose 20 MG; Start 08/29/18 at 21:00 Zolpidem Tartrate (Ambien) 5 mg HS PRN PO INSOMNIA Last administered on 09/10/18 20:31; Admin Dose 5 MG; Start 09/01/18 at 00:00 Guaifenesin/ Dextromethorphan (Robitussin Dm Liquid Cup) 5 ml Q6H PRN PO COUGH Last administered on 09/15/18 05:16; Admin Dose 5 ML; Start 09/01/18 at 20:00 Morphine Sulfate (morphine) 6 mg Q4H PRN PO SEVERE PAIN LEVEL 7-10 Last administered on 09/21/18 08:35; Admin Dose 6 MG; Start 09/04/18 at 21:30 Albuterol/ Ipratropium (Duoneb) 3 ml Q3H RESP THERAPY PRN HHN SHORTNESS OF BREATH Last administered on 09/12/18 18:47; Admin Dose 3 ML; Start 09/05/18 at 20:00 Methylprednisolone Sodium Succinate (Solu-Medrol) 40 mg Q6 IV Last administered on 09/24/18 05:10; Admin Dose 40 MG; Start 09/07/18 at 12:00 Alteplase, Recombinant (Cathflo (Activase)) 2 mg MAY REPEAT X1 PRN CATHETER IF CATHETER REMAINS OCCULUDED; Start 09/07/18 at 11:00 Lorazepam (Ativan) 1 mg Q6H PRN IV PSYCHOSIS Last administered on 09/20/18at 02:58; Admin Dose 1 MG; Start 09/12/18 at 02:00 Haloperidol (Haldol) 2 mg PRN PRN IM AGITATION Last administered on 09/17/18 00:44; Admin Dose 2 MG; Start 09/13/18 at 06:30 Risperidone (Risperdal) 2 mg BID PO Last administered on 09/24/18 08:20; Admin Dose 2 MG; Start 09/14/18 at 21:00 Divalproex Sodium (Depakote Sprinkle) 250 mg Q8H PO Last administered on 09/24/18 05:10; Admin Dose 250 MG; Start 09/15/18 at 21:00 Propofol 100 ml @ 1.875 mls/ hr Q12H IV Last administered on 09/20/18 01:14; Admin Dose 7.5 MLS/HR; Start 09/18/18 at 15:30 Ascorbic Acid (Vitamin C) 500 mg DAILY GTB Last administered on 09/24/18 08:20; Admin Dose 500 MG; Start 09/20/18 at 10:30 Phenylephrine HCl 80 mg/Dextrose 250 ml @ 18.75 mls/ hr TITRATE IV Last administered on 09/21/18 21:39; Admin Dose 7.5 MLS/HR; Start 09/21/18 at 01:00 Albuterol (Ventolin Hfa) 4 puff Q6H RESP THERAPY INH Last administered on 09/24/18 08:32; Admin Dose 4 PUFF; Start 09/21/18 at 14:00 Ipratropium [place] (Atrovent Hfa) 4 puff Q6H RESP THERAPY INH Last administered on 09/24/18 08:32; Admin Dose 4 PUFF; Start 09/21/18 at 14:00 Levofloxacin/ Dextrose 100 ml @ 100 mls/hr Q24H IVPB Last administered on 09/23/18 11:30; Admin Dose 100 MLS/HR; Start 09/21/18 at 12:00 Midazolam HCl 50 ml @ 1 mls/hr TITRATE IV Last administered on 09/23/18 17:11; Admin Dose 4 MLS/HR; Start 09/22/18 at 10:00 Hydrochlorothiazide (Hydrochlorothiazide) 25 mg DAILY GTB ; Start 09/23/18 at 09:00 Assessment/Plan Hospital Course (Demo Recall) 1.Hypotension- BP now maintained. Con't to monitor - BP better. 2.Resp failure s/p re-intubation - pulm team follows. NOt able to extubate now. 3.h/o cardiac arrest - etiology unclear - con't supportive RX now. Stable now - of tele. No cardiac intervention currently planned. Stable Vs. 4.Pneumoperitoneum - self d/c chest tube - stable SOB now. Con't Rx. NO new fevers. 5.Positive troponin-now trended neg - will monitor clinically for now. No intervention planned. NO CP noted. 6.renal failure - good urine output. 7.Leukocytosis - on anti-Bx, con't med rx. On anti-Bx. 8. anemia - H/H stable - no bleeding noted. 9, Thrombocytopenia - no active bleeds noted. 10 DVT - low plts - defer to hematology for anti-coagulation. 11. Bardy - sinus valerie - no indication for pacer now. HR well controlled. JIE ALEJO MD Sep 24, 2018 09:37
--- NOTE | 2018-09-24 10:15 | CONS ---
Consult Date/Type/Reason Admit Date/Time Aug 27, 2018 at 00:03 Initial Consult Date 08/27/18 Type of Consult Pulmonary Requesting Provider: VIVIANA NOLAN MD Date/Time of Note DATE: 09/24/18 TIME: 10:14 Subjective Patient remains on mechanical ventilation currently sedated. Agonal respiration off sedation. Objective Vital Signs Date Temp Pulse Resp B/P (MAP) Pulse Ox O2 O2 Flow FiO2 Time Delivery Rate 09/24/18 93 17 99/71 (80) 100 Mechanical 09:00 Ventilator 09/24/18 98.4 08:00 09/24/18 40 08:00 Intake and Output 09/23/18 09/23/18 09/24/18 1515:00 23:00 07:00 IntakeIntake Total 2000 ml 1904 ml 1698 ml OutputOutput Total 475 ml 530 ml 715 ml BalanceBalance 1525 ml 1374 ml 983 ml Exam GENERAL: Frail elderly gentleman, on mechanical ventilation orally intubated VITAL SIGNS: per chart NECK: Supple. No JVD or lymphadenopathy. CARDIAC EXAM: S1, S2. No added sounds or murmurs. CHEST: Diminished air entry bilaterally ABDOMEN: Soft, nontender. No guarding or rebound. EXTREMITIES: No cyanosis, clubbing or edema. NEUROLOGIC: Generalized weakness. Vent Setting Ventilator Support Mode: AC Fraction of Inspired Oxygen pe: 40 Positive End Expiratory Pressu: 5.0 Results/Medications Result Diagram: 09/24/18 0812 09/24/18 0500 Results 24 hrs Laboratory Tests Test 09/23/18 14:13 09/24/18 05:00 09/24/18 08:12 Sodium Level 145 H 142 Potassium Level 5.0 5.0 Chloride Level 106 110 Carbon Dioxide Level 32 H 35 H Anion Gap 7 -3 L Blood Urea Nitrogen 55 H 68 H Creatinine 0.86 0.78 Est Glomerular Filtrat Rate mL/min > 60 > 60 Glucose Level 229 H 217 Calcium Level 8.3 L 8.0 L White Blood Count 2.4 L 2.5 L Red Blood Count 2.44 L 2.59 L Hemoglobin 7.0 L 7.2 L Hematocrit 23.0 L 24.0 L Mean Corpuscular Volume 94.3 92.7 Mean Corpuscular Hemoglobin 28.7 L 27.8 L Mean Corpuscular Hemoglobin Concent 30.4 L 30.0 L Red Cell Distribution Width 16.6 H 16.7 H Platelet Count 37 L 36 L Mean Platelet Volume 12.5 H 12.4 H Immature Granulocytes % 0.800 H 0.400 Neutrophils % 88.7 H 89.9 H Lymphocytes % 7.6 L 7.3 L Monocytes % 2.9 2.4 Eosinophils % 0.0 0.0 Basophils % 0.0 0.0 Nucleated Red Blood Cells % 0.8 H 0.0 Immature Granulocytes # 0.020 0.010 Neutrophils # 2.1 2.2 Lymphocytes # 0.2 L 0.2 L Monocytes # 0.1 L 0.1 L Eosinophils # 0.0 0.0 Basophils # 0.0 0.0 Nucleated Red Blood Cells # 0.0 0.0 Phosphorus Level 2.3 L Magnesium Level 2.6 H Medications Current Medications Ondansetron HCl (Zofran Inj) 4 mg Q6H PRN IV NAUSEA AND/OR VOMITING Last administered on 09/06/18 18:46; Admin Dose 4 MG; Start 08/26/18 at 23:30 Acetaminophen (Tylenol Supp) 650 mg Q4H PRN [place] PAIN LEVEL 1-3 OR FEVER; Start 08/26/18 at 23:30 Aspirin (Aspirin) 81 mg DAILY PO Last administered on 09/24/18 08:20; Admin Dose 81 MG; Start 08/29/18 at 09:00 Famotidine (Pepcid) 20 mg Q12 PO Last administered on 09/24/18 08:20; Admin Dose 20 MG; Start 08/29/18 at 21:00 Zolpidem Tartrate (Ambien) 5 mg HS PRN PO INSOMNIA Last administered on 09/10/18 20:31; Admin Dose 5 MG; Start 09/01/18 at 00:00 Guaifenesin/ Dextromethorphan (Robitussin Dm Liquid Cup) 5 ml Q6H PRN PO COUGH Last administered on 09/15/18 05:16; Admin Dose 5 ML; Start 09/01/18 at 20:00 Morphine Sulfate (morphine) 6 mg Q4H PRN PO SEVERE PAIN LEVEL 7-10 Last administered on 09/21/18 08:35; Admin Dose 6 MG; Start 09/04/18 at 21:30 Albuterol/ Ipratropium (Duoneb) 3 ml Q3H RESP THERAPY PRN HHN SHORTNESS OF BREATH Last administered on 09/12/18 18:47; Admin Dose 3 ML; Start 09/05/18 at 20:00 Methylprednisolone Sodium Succinate (Solu-Medrol) 40 mg Q6 IV Last administered on 09/24/18 05:10; Admin Dose 40 MG; Start 09/07/18 at 12:00 Alteplase, Recombinant (Cathflo (Activase)) 2 mg MAY REPEAT X1 PRN CATHETER IF CATHETER REMAINS OCCULUDED; Start 09/07/18 at 11:00 Lorazepam (Ativan) 1 mg Q6H PRN IV PSYCHOSIS Last administered on 09/20/18 02:58; Admin Dose 1 MG; Start 09/12/18 at 02:00 Haloperidol (Haldol) 2 mg PRN PRN IM AGITATION Last administered on 09/17/18 00:44; Admin Dose 2 MG; Start 09/13/18 at 06:30 Risperidone (Risperdal) 2 mg BID PO Last administered on 09/24/18 08:20; Admin Dose 2 MG; Start 09/14/18 at 21:00 Divalproex Sodium (Depakote Sprinkle) 250 mg Q8H PO Last administered on 09/24/18 05:10; Admin Dose 250 MG; Start 09/15/18 at 21:00 Propofol 100 ml @ 1.875 mls/ hr Q12H IV Last administered on 09/20/18 01:14; Admin Dose 7.5 MLS/HR; Start 09/18/18 at 15:30 Ascorbic Acid (Vitamin C) 500 mg DAILY GTB Last administered on 09/24/18 08:20; Admin Dose 500 MG; Start 09/20/18 at 10:30 Phenylephrine HCl 80 mg/Dextrose 250 ml @ 18.75 mls/ hr TITRATE IV Last admini stered on 09/21/18 21:39; Admin Dose 7.5 MLS/HR; Start 09/21/18 at 01:00 Albuterol (Ventolin Hfa) 4 puff Q6H RESP THERAPY INH Last administered on 09/24/18 08:32; Admin Dose 4 PUFF; Start 09/21/18 at 14:00 Ipratropium [place] (Atrovent Hfa) 4 puff Q6H RESP THERAPY INH Last administered on 09/24/18at 08:32; Admin Dose 4 PUFF; Start 09/21/18 at 14:00 Levofloxacin/ Dextrose 100 ml @ 100 mls/hr Q24H IVPB Last administered on 09/23/18at 11:30; Admin Dose 100 MLS/HR; Start 09/21/18 at 12:00 Midazolam HCl 50 ml @ 1 mls/hr TITRATE IV Last administered on 09/23/18at 17:11; Admin Dose 4 MLS/HR; Start 09/22/18 at 10:00 Hydrochlorothiazide (Hydrochlorothiazide) 25 mg DAILY GTB ; Start 09/23/18 at 09:00 Assessment/Plan Hospital Course (Demo Recall) iMP: 1. Acute on chronic hypoxic and hypercapnic respiratory failure--worse overnight with increased mucus plugging. Currently not able to liberate from mechanical ventilation 3. Encephalopathy toxic metabolic resolving 4. Advanced COPD 5. Hypernatremia likely free water deficit 6. Thrombocytopenia 7. Anemia RECS: 1. Failed multiple weaning trials. Transition to comfort care today. Appreciate hospice eval. Critical care time 40 minutes. Code status DNR DNI KHUSHI PATTON MD, [facility] Sep 24, 2018 10:15
--- NOTE | 2018-09-24 10:56 | CONS ---
Assessment/Plan Assessment/Plan Hospital Course (Demo Recall) ID PROGRESS NOTE CURRENT ABX: DAY # => Levaquin #4 09/24/18 0812 09/24/18 0500 24H INTERVAL SUMMARY * Critically ill 68 yo M who is DNR status - yet currently intubated and sedated on the Vent -- failed weaning trials due to agonal breathing off sedation -- Poor prognosis with poor quality of life ? Plan for trach is unclear ? * No fevers with pancytopenia * Indwelling: Endotracheal tube PEG Sellers MICRO/OTHER * BCx (-) * 09/19/18 RESP CX: RESPIRATORY CULTURE Final Organism 1 ENTEROBACTER CLOACAE QUANTITY 3+ E CLOACAE M.I.C. RX --------- --- CEFAZOLIN R CEFOTAXIME S CIPROFLOXACIN <=0.25 S GENTAMICIN <=1 S LEVOFLOXACIN <=0.12 S TOBRAMYCIN <=1 S TRIMETHOPRIM/SULFAMETHOXAZOLE <=20 S PHYSICAL EXAMINATION: GENERAL: Afebrile, VSS,cachexia, non-verbal HEENT: AT, NC, anicteric, edentulous, orally intubated NECK: Supple, trach midline CHEST: Equal chest rise bilaterally== Vented HEART: Pulse RRR ABDOMEN: Soft / NT EXTREMITIES: Warm, dry, muscle wasting SKIN: No rash, no diaphoresis ID ASSESSMENT 68 yo M admit with: 1. SIRS w/low grade temps, rising WBC 2. Respiratory failure due to recurrent Aspiration pneumonia * Dysphagia/peg with ongoing aspiration * 09/20/18 CXR: Similar appearance of right greater than left basilar i nfiltrates. Small bilateral pleural effusions unchanged. 4. Pneumoperitoneum of unclear etiology, no perforation per surgical note, status post chest tube 5. Dementia 5. Anemia with progressive thrombocytopenia 6. History of non-ST elevation DE 7. Status post cardiac arrest 8. RIJ TLC (-)MRSA Nares ABX ALLERGIES: KNDA INVASIVES: R-IJ/TLC, ETT, PEG, FC CURRENT ABX: DAY # => Levaquin #4 ID RECOMMENDATIONS/PLAN: 1. Continue on Levaquin 500mg IV daily for HCAP -> ASP PNA Enterobacter = VAP . Consultation Date/Type/Reason Admit Date/Time Aug 27, 2018 at 00:03 Initial Consult Date 08/27/18 Requesting Provider: VIVIANA NOLAN MD Date/Time of Note DATE: 09/24/18 TIME: 10:49 Exam/Review of Systems Exam Vitals Vital Signs Date Temp Pulse Resp B/P (MAP) Pulse Ox O2 O2 Flow FiO2 Time Delivery Rate 09/24/18 93 17 99/71 (80) 100 Mechanical 09:00 Ventilator 09/24/18 98.4 08:00 09/24/18 40 08:00 Intake and Output 09/23/18 09/23/18 09/24/18 1515:00 23:00 07:00 IntakeIntake Total 2000 ml 1904 ml 1758 ml OutputOutput Total 475 ml 530 ml 825 ml BalanceBalance 1525 ml 1374 ml 933 ml Results Result Diagram: 09/24/18 0812 09/24/18 0500 Results 24hrs Laboratory Tests Test 09/23/18 14:13 09/24/18 05:00 09/24/18 08:12 Sodium Level 145 H 142 Potassium Level 5.0 5.0 Chloride Level 106 110 Carbon Dioxide Level 32 H 35 H Anion Gap 7 -3 L Blood Urea Nitrogen 55 H 68 H Creatinine 0.86 0.78 Est Glomerular Filtrat Rate mL/min > 60 > 60 Glucose Level 229 H 217 Calcium Level 8.3 L 8.0 L White Blood Count 2.4 L 2.5 L Red Blood Count 2.44 L 2.59 L Hemoglobin 7.0 L 7.2 L Hematocrit 23.0 L 24.0 L Mean Corpuscular Volume 94.3 92.7 Mean Corpuscular Hemoglobin 28.7 L 27.8 L Mean Corpuscular Hemoglobin Concent 30.4 L 30.0 L Red Cell Distribution Width 16.6 H 16.7 H Platelet Count 37 L 36 L Mean Platelet Volume 12.5 H 12.4 H Immature Granulocytes % 0.800 H 0.400 Neutrophils % 88.7 H 89.9 H Lymphocytes % 7.6 L 7.3 L Monocytes % 2.9 2.4 Eosinophils % 0.0 0.0 Basophils % 0.0 0.0 Nucleated Red Blood Cells % 0.8 H 0.0 Immature Granulocytes # 0.020 0.010 Neutrophils # 2.1 2.2 Lymphocytes # 0.2 L 0.2 L Monocytes # 0.1 L 0.1 L Eosinophils # 0.0 0.0 Basophils # 0.0 0.0 Nucleated Red Blood Cells # 0.0 0.0 Phosphorus Level 2.3 L Magnesium Level 2.6 H Medications Medication Current Medications Ondansetron HCl (Zofran Inj) 4 mg Q6H PRN IV NAUSEA AND/OR VOMITING Last administered on 09/06/18 18:46; Admin Dose 4 MG; Start 08/26/18 at 23:30 Acetaminophen (Tylenol Supp) 650 mg Q4H PRN [place] PAIN LEVEL 1-3 OR FEVER; Start 08/26/18 at 23:30 Aspirin (Aspirin) 81 mg DAILY PO Last administered on 09/24/18 08:20; Admin Dose 81 MG; Start 08/29/18 at 09:00 Famotidine (Pepcid) 20 mg Q12 PO Last administered on 09/24/18 08:20; Admin Dose 20 MG; Start 08/29/18 at 21:00 Zolpidem Tartrate (Ambien) 5 mg HS PRN PO INSOMNIA Last administered on 09/10/18 20:31; Admin Dose 5 MG; Start 09/01/18 at 00:00 Guaifenesin/ Dextromethorphan (Robitussin Dm Liquid Cup) 5 ml Q6H PRN PO COUGH Last administered on 09/15/18 05:16; Admin Dose 5 ML; Start 09/01/18 at 20:00 Morphine Sulfate (morphine) 6 mg Q4H PRN PO SEVERE PAIN LEVEL 7-10 Last administered on 09/21/18 08:35; Admin Dose 6 MG; Start 09/04/18 at 21:30 Albuterol/ Ipratropium (Duoneb) 3 ml Q3H RESP THERAPY PRN HHN SHORTNESS OF BREATH Last administered on 09/12/18 18:47; Admin Dose 3 ML; Start 09/05/18 at 20:00 Methylprednisolone Sodium Succinate (Solu-Medrol) 40 mg Q6 IV Last administered on 09/24/18 05:10; Admin Dose 40 MG; Start 09/07/18 at 12:00 Alteplase, Recombinant (Cathflo (Activase)) 2 mg MAY REPEAT X1 PRN CATHETER IF CATHETER REMAINS OCCULUDED; Start 09/07/18 at 11:00 Lorazepam (Ativan) 1 mg Q6H PRN IV PSYCHOSIS Last administered on 09/20/18 02:58; Admin Dose 1 MG; Start 09/12/18 at 02:00 Haloperidol (Haldol) 2 mg PRN PRN IM AGITATION Last administered on 09/17/18 00:44; Admin Dose 2 MG; Start 09/13/18 at 06:30 Risperidone (Risperdal) 2 mg BID PO Last administered on 09/24/18 08:20; Admin Dose 2 MG; Start 09/14/18 at 21:00 Divalproex Sodium (Depakote Sprinkle) 250 mg Q8H PO Last administered on 09/24/18 05:10; Admin Dose 250 MG; Start 09/15/18 at 21:00 Propofol 100 ml @ 1.875 mls/ hr Q12H IV Last administered on 09/20/18 01:14; Admin Dose 7.5 MLS/HR; Start 09/18/18 at 15:30 Ascorbic Acid (Vitamin C) 500 mg DAILY GTB Last administered on 09/24/18 08:20; Admin Dose 500 MG; Start 09/20/18 at 10:30 Phenylephrine HCl 80 mg/Dextrose 250 ml @ 18.75 mls/ hr TITRATE IV Last administered on 09/21/18 21:39; Admin Dose 7.5 MLS/HR; Start 09/21/18 at 01:00 Albuterol (Ventolin Hfa) 4 puff Q6H RESP THERAPY INH Last administered on 09/24/18 08:32; Admin Dose 4 PUFF; Start 09/21/18 at 14:00 Ipratropium [place] (Atrovent Hfa) 4 puff Q6H RESP THERAPY INH Last administered on 09/24/18 08:32; Admin Dose 4 PUFF; Start 09/21/18 at 14:00 Levofloxacin/ Dextrose 100 ml @ 100 mls/hr Q24H IVPB Last administered on 09/23/18 11:30; Admin Dose 100 MLS/HR; Start 09/21/18 at 12:00 Midazolam HCl 50 ml @ 1 mls/hr TITRATE IV Last administered on 09/23/18at 17:11; Admin Dose 4 MLS/HR; Start 09/22/18 at 10:00 Hydrochlorothiazide (Hydrochlorothiazide) 25 mg DAILY GTB ; Start 09/23/18 at 09:00 NEIL BRADEN NP Sep 24, 2018 10:56
[2018-09-24] MEDS: LEVOFLOXACIN 500MG/D5W (PMX) 100 ML IVPB SCH (11:08)
[2018-09-24] MEDS ORDERED: LORAZEPAM 2 MG INJ IV PRN (12:00)
[2018-09-24] MEDS ORDERED: SENNA/DOCUSATE NA (8.6MG/50MG) TAB PO SCH (12:00)
[2018-09-24] MEDS ORDERED: ONDANSETRON (ODT) 4 MG TAB ODT PRN (12:30)
[2018-09-24] MEDS ORDERED: ARTIFICIAL TEARS 15 ML OPH BOTH EYES PRN (12:30)
[2018-09-24] MEDS ORDERED: ATROPINE 1% 5 ML OPH SL PRN (12:30)
[2018-09-24] MEDS ORDERED: DIMETHICONE STICK TOP PRN (12:30)
[2018-09-24] MEDS ORDERED: morphine (DRIP) 100 MG/100 ML 100 ML IV SCH (13:00)
--- NOTE | 2018-09-24 18:07 | HP ---
DATE OF ADMISSION: 08/27/2018 CHIEF COMPLAINT: Shortness of breath. HISTORY OF PRESENT ILLNESS: The patient is a 68-year-old gentleman who was recently admitted at [facility] due to acute respiratory failure and has left-sided pneumothorax status post chest tube placement. The patient also at that time was noted to have pneumoperitoneum, although it was probably due to pneumothorax. The patient also has history of severe COPD and was brought initi [facility] from [facility] care for respiratory distress on 08/26/2018. The patient as mentioned above was inci dentally noted to have pneumoperitoneum which was likely from trauma of chest compression because he also has a cardiac arrest. The patient was treated conservatively and was transferred to the floor; however got worse again, went into sepsis with septic shock and acute respiratory failure and needed ventilator support. The patient for the last few days had been doing poorly and could not be weaned off and failed multiple weaning trials. The patient has agonal respiration when he is off sedation. The patient continues to have moderate secretions. The patient also developed pancytopenia with WBC count of 2 yesterday along with hemoglobin of 8.3 and platelets 38,000. The patient's DPOA, Ace, was held. DPOA reported that patient had expressed his wishes that it is okay to be intubated; meyer césar he did not want to be permanently on life support. The patient was made DNR and hospice referral was made since the patient would have needed tracheostomy for further care. The patient was admitte d today under hospice at 11:00 and plan is to compassionate extubation and start morphine drip. REVIEW OF SYSTEMS: Limited since the patient was intubated. There was no fever today. No reported bleeding from any site. No reported seizure. No reported hematuria. PAST MEDICAL HISTORY: As stated above. In addition, the patient also has history of bipolar disorde r, benign prostatic hypertrophy, seizure disorder and dyslipidemia. The patient lived in a board car e prior to admission at [facility]. FAMILY HISTORY: Could not be obtained. SOCIAL HISTORY: Could not be obtained, although the patient does have history of COPD and may have b een a smoker in the past. DIAGNOSTIC DATA: The patient's CT of the abdomen revealed extensive emphysematous changes. PHYSICAL EXAMINATION: GENERAL: Revealed the patient to be lethargic. VITAL SIGNS: This morning: Temperature 98.8, pulse 97, respirations 18, blood pressure 93/77. The patient is saturating 99% on mechanical ventilator, FiO2 of 30%. HEENT: Atraumatic and normocephalic. Conjunctivae and lids are normal. Nose and ears are normal ex ternally. NECK: No mass, no JVD. CHEST: Diminished air entry bilaterally. CARDIOVASCULAR: S1, S2 normal, no murmur. ABDOMEN: Soft, nondistended, nontender, no palpable mass. EXTREMITIES: No edema, clubbing, cyanosis. NEUROLOGIC: The patient is lethargic. No useful communication possible. LABORATORY DATA: Done this morning, WBC 2.5, hemoglobin 7.2, platelets 36. Sodium 142, potassium 5, BUN 68, creatinine 0.7, glucose 217, magnesium 2.6. IMPRESSION: 1. Acute respiratory failure. 2. Chronic obstructive pulmonary disease. 3. Sepsis due to recurrent aspiration pneumonia. 4. History of pneumothorax status post chest tube. 5. Bipolar disorder. 6. Seizure disorder. 7. Possible atherosclerotic heart disease with history of cardiac arrest with positive troponin upon presentation. PLAN: The patient will be terminally extubated. The patient will be given IV morphine 5 mg and IV A tivan 2 mg prior to terminal extubation and will be started on morphine drip at 1 mg an hour. The pa tient will also be started on IV Zofran 4 mg q.6 p.r.n. for vomiting, atropine drops 2 drops q.4 p.r. n. for secretions and IV Ativan 1 mg hours p.r.n. for anxiety and seizures. Plan of care was discuss ed with the patient's nurse, Lata as well as [facility] nurse, Lynne. The patient is appropriate for [facility] level of care. Dictated By: VIVIANA NOLAN MD AB/NTS Conf#: [id number] DID#: [id number] CC: WENDY LOVE MD; WEI SHAH NP;*EndCC*
--- NOTE | 2018-09-25 21:28 | DES ---
DATE OF ADMISSION: 08/27/2018 DATE OF : 09/24/2018 DATE OF EXPIRATION: 09/24/2018. TIME OF : 1640. CAUSE OF : Acute respiratory failure secondary to chronic obstructive pulmonary disease. COMORBID: 1. Bipolar disorder. 2. Seizure disorder. 3. Possible atherosclerotic heart disease with history of cardiac arrest and positive troponin. REASON FOR ADMISSION AND HOSPITAL COURSE: The patient was a 68-year-old gentleman with a history of severe COPD who was brought into hospital a few weeks ago due to shortness of breath. The patient wa s diagnosed with acute respiratory failure. The patient also had underlying severe COPD. The patien t had cardiopulmonary arrest and was intubated and also had chest compression. The patient subsequen tly developed pneumothorax and also pneumoperitoneum. The patient had improved and was extubated an d was transferred out of ICU. However, patient again became progressively more short of breath and w as transferred to ICU after he developed a fever, septic shock and recurrent respiratory failure. Th e patient had healthcare-acquired pneumonia and was treated with broad spectrum IV antibiotic. The p atient was seen by Dr. Mejias from pulmonary standpoint, [facility], Dr. Florentino from cardiac standpoint, Dr. Arvizu from internal medicine standpoint. The patient h ad developed progressive acute kidney injury and his BUN from 30 on 09/06/2018 had climbed up to 68. The patient's x-ray revealed bilateral infiltrates. The patient also was requiring vasopressor and continued to require ventilatory support and could not be weaned off. The patient had agonal breathi ng off sedation. A family conference was arranged and patient's DPAAce, decided to put him on h ospice care. The patient was terminally extubated. The patient was given morphine and Ativan boluse s prior to extubation and was started on morphine drip. The patient rapidly declined and was noted t o be unresponsive to all stimuli. The patient was pulseless, BP less, and there was no respiratory m ovement. The patient was pronounced at 1640 on 09/24/2018. The patient was continued on morphi ne drip after extubation as he was having difficulty in breathing. Case was discussed with the [facility]'s nurse, Lata, and with desk nurse, Lynne. Dictated By: VIVIANA FERREIRA/[place] Conf#: [id number] [facility]#: [id number]
== END 2018-09-24 16:40 | disposition expired | DRG 870 ==
LOC: E/R 18:17 → EDBEDREQ 08-27 00:01 → ICU 08-27 00:03 → 2NE 08-31 13:09 → 5EC 09-02 20:00 → ICU 09-07 10:41 → 6WM 09-13 20:57 → ICU 09-15 13:02
PROVIDERS: ADMIT Internal Medicine; ATTEND Internal Medicine
PROC: 02HV33Z Insertion of Infusion Device into Superior Vena Cava, Percutaneous Approach (ICD-10-PCS; principal; 2018-08-26)
PROC: 0BH18EZ Insertion of Endotracheal Airway into Trachea, Via Natural or Artificial Opening Endoscopic (ICD-10-PCS; 2018-08-26)
PROC: 5A12012 Performance of Cardiac Output, Single, Manual (ICD-10-PCS; 2018-08-26)
PROC: 0W9B30Z Drainage of Left Pleural Cavity with Drainage Device, Percutaneous Approach (ICD-10-PCS; 2018-08-26)
PROC: 5A1955Z Respiratory Ventilation, Greater than 96 Consecutive Hours (ICD-10-PCS; 2018-08-26)
PROC: 5A1955Z Respiratory Ventilation, Greater than 96 Consecutive Hours (ICD-10-PCS; 2018-09-18)
PROC: 0BH17EZ Insertion of Endotracheal Airway into Trachea, Via Natural or Artificial Opening (ICD-10-PCS; 2018-09-18)
PROC: 0DH63UZ Insertion of Feeding Device into Stomach, Percutaneous Approach (ICD-10-PCS; 2018-09-18)
DX: A41.9 Sepsis, unspecified organism (principal); R65.21 Severe sepsis with septic shock; J96.01 Acute respiratory failure with hypoxia; J96.02 Acute respiratory failure with hypercapnia; G92 Toxic encephalopathy; J69.0 Pneumonitis due to inhalation of food and vomit; I21.4 Non-ST elevation (NSTEMI) myocardial infarction; N17.0 Acute kidney failure with tubular necrosis; Z68.1 Body mass index [BMI] 19.9 or less, adult; J93.9 Pneumothorax, unspecified; E87.2 Acidosis; N39.0 Urinary tract infection, site not specified; E44.0 Moderate protein-calorie malnutrition; E87.0 Hyperosmolality and hypernatremia; I50.30 Unspecified diastolic (congestive) heart failure; I82.622 Acute embolism and thrombosis of deep veins of left upper extremity; I82.A12 Acute embolism and thrombosis of left axillary vein; N25.1 Nephrogenic diabetes insipidus; D61.818 Other pancytopenia; I46.8 Cardiac arrest due to other underlying condition; E78.5 Hyperlipidemia, unspecified; N40.0 Benign prostatic hyperplasia without lower urinary tract symptoms; K66.8 Other specified disorders of peritoneum; G40.909 Epilepsy, unspecified, not intractable, without status epilepticus; E87.5 Hyperkalemia; N18.9 Chronic kidney disease, unspecified; D63.1 Anemia in chronic kidney disease; D69.6 Thrombocytopenia, unspecified; R13.10 Dysphagia, unspecified; I46.9 Cardiac arrest, cause unspecified; J43.9 Emphysema, unspecified; F25.1 Schizoaffective disorder, depressive type; Z66 Do not resuscitate
CPT/HCPCS: 31500; 36415; 36430; 36600; 70450; 71045; 74018; 74176; 74177; 80048; 80053; 80202; 81001; 81003; 82043; 82803; 83036; 83605; 83735; 83935; 84100; 84155; 84295; 84300; 84484; 85025; 85610; 85730; 86850; 86900; 86901; 87040; 87070; 87081; 87086; 89220; 90686; 92526; 92610; 92950; 93005; 93306; 93971; 94002; 94003; 94640; 94664; 94668; 94770; 96365; 96366; 96367; 97110; 97161; 97164; 97530; C9113; J0171; J0282; J0690; J0692; J1265; J1630; J1650; J1940; J1956; J2060; J2185; J2250; J2270; J2370; J2405; J2543; J2920; J3010; J3370; J3480; J7030; J7040; J7050; J7070; L3260; P9035; P9047; Q9967